=== PATIENT | female | born 1960 | race Asian ===

== ENCOUNTER 2021-07-27 14:10 | Outpatient (REF) | payer OTHER, SELFPAY ==
--- NOTE | ~2021-07-27 | MM_ITS ---
EXAMINATION: MM SCREENING DIGITAL BREAST TOMOSYNTHESIS, BILATERAL CLINICAL INFORMATION: Screening. Asymptomatic. The lifetime risk of breast cancer based on the Tyrer-Cuzick Model is 7%. COMPARISON: Mammography: 04/15/2019, 04/22/2017, outside mammography 02/07/2016 ([facility]). TECHNIQUE: Digital breast tomosynthesis is performed in both the craniocaudal and mediolateral oblique views along with computer-aided detection (CAD). Synthesized 2D images are generated from the tomosynthesis. FINDINGS: The breasts are heterogeneously dense, which may obscure small masses (ACR BI-RADS breast composition Category c). Parenchymal pattern is similar to prior exams. There is no developing density or interval mass or architectural abnormality. Again, there are numerous scattered bilateral round and mild coarse calcifications in each breast of similar distribution. There is a biopsy clip marker mid lower inner right breast. The axilla and skin contours are unremarkable. No significant changes. MM/MM tomosynthesis screening BI IMPRESSION: No significant changes from prior studies. ASSESSMENT: BI-RADS 2: Benign RECOMMENDATION: Routine annual mammography screening. This patient's information was entered into a reminder system with a target due date for their next mammogram.
== END 2021-07-27 14:11 | disposition home or self-care (01) ==
LOC: HO.MAMMO 14:10
PROVIDERS: Visit Provider Family Medicine
DX: Z12.31 Encounter for screening mammogram for malignant neoplasm of breast (principal)
CPT/HCPCS: 77063; 77067

== ENCOUNTER 2023-09-06 14:03 | Outpatient (REF) | payer OTHER, SELFPAY ==
--- NOTE | ~2023-09-06 | MM_ITS ---
EXAMINATION: MM SCREENING DIGITAL BREAST TOMOSYNTHESIS, BILATERAL CLINICAL INFORMATION: Screening. Asymptomatic. COMPARISON: Mammography: This study is compared with prior exams dating back to 2016. TECHNIQUE: Digital breast tomosynthesis is performed in both the craniocaudal and mediolateral oblique views along with computer-aided detection (CAD). Synthesized 2D images are generated from the tomosynthesis. FINDINGS: The breasts are heterogeneously dense, which may obscure small masses (ACR BI-RADS breast composition Category c). There are no significant masses, abnormal calcifications, or other abnormalities. Bilateral, benign calcifications are present in each breast. There is tissue marker in the lower inner quadrant of the right breast from prior benign percutaneous biopsy. MM/MM tomosynthesis screening BI IMPRESSION: No mammographic evidence of malignancy. ASSESSMENT: BI-RADS BI-RADS 2 - Benign Findings RECOMMENDATION: Routine annual mammography screening. 1 year F/U This examination should not preclude the clinical evaluation of a suspicious palpable abnormality. This patient's information was entered into a reminder system with a target due date for their next mammogram.
== END 2023-09-06 14:04 | disposition home or self-care (01) ==
LOC: HO.MAMMO 14:03
PROVIDERS: PCP Family Medicine; Visit Provider Family Medicine
DX: Z12.31 Encounter for screening mammogram for malignant neoplasm of breast (principal)
CPT/HCPCS: 77063; 77067

== ENCOUNTER → 2023-09-06 14:30 | Outpatient (BNV) | payer OTHER, SELFPAY | PROVIDERS: PCP Family Medicine; Visit Provider Radiology Diagnostic Radiology | DX: Z12.31 Encounter for screening mammogram for malignant neoplasm of breast (principal) | CPT/HCPCS: 77063; 77067 ==

== ENCOUNTER 2024-09-11 13:56 | Outpatient (REF) | payer OTHER, SELFPAY ==
--- NOTE | ~2024-09-11 | MM_ITS ---
EXAMINATION: MM SCREENING DIGITAL BREAST TOMOSYNTHESIS, BILATERAL CLINICAL INFORMATION: Screening. Asymptomatic. COMPARISON: Mammography: Comparison is made with available priors TECHNIQUE: Digital breast mammography with tomosynthesis is performed in both the craniocaudal and mediolateral oblique views along with computer-aided detection (CAD). FINDINGS: There are scattered areas of fibroglandular density (ACR BI-RADS breast composition Category b). Left: There are no significant masses, abnormal calcifications, or other abnormalities. Right: Focal asymmetry central inner breast middle to posterior depth. Marker clip from previous needle core biopsy. No suspicious calcifications or other abnormal findings. MM/MM tomosynthesis screening BI IMPRESSION: Additional imaging is recommended ASSESSMENT: BI-RADS BI-RADS 0 - Incomplete: Needs additional Imaging. RECOMMENDATION: 1. Additional views of the right breast 2. Targeted ultrasound if warranted after review of the additional views. 3. Radiology department staff will contact the patient for additional imaging. Additional Imaging required This examination should not preclude the clinical evaluation of a suspicious palpable abnormality. This patient's information was entered into a reminder system with a target due date for their next mammogram. Electronically signed by: Paula Wright DO 09/21/2024 08:51 AM EST
== END 2024-09-11 13:57 | disposition home or self-care (01) ==
LOC: HO.MAMMO 13:56
PROVIDERS: PCP Family Medicine; Visit Provider Family Medicine
DX: Z12.31 Encounter for screening mammogram for malignant neoplasm of breast (principal)
CPT/HCPCS: 77063; 77067

== ENCOUNTER → 2024-09-11 14:30 | Outpatient (BNV) | payer OTHER, SELFPAY | PROVIDERS: PCP Family Medicine; Visit Provider Internal Medicine | DX: Z12.31 Encounter for screening mammogram for malignant neoplasm of breast (principal) | CPT/HCPCS: 77063; 77067 ==

== ENCOUNTER 2024-11-12 10:36 | Outpatient (REF) | payer OTHER, SELFPAY ==
--- NOTE | ~2024-11-12 | US_ITS ---
EXAMINATION: MM DIAGNOSTIC DIGITAL BREAST TOMOSYNTHESIS, RIGHT Limited right breast ultrasound. CLINICAL INFORMATION: Call back from screening for focal asymmetry in the central inner right breast. COMPARISON: Mammography: Comparison is made with available prior examinations. TECHNIQUE: Digital breast tomosynthesis is performed in both the craniocaudal and mediolateral oblique views along with computer-aided detection (CAD). Synthesized 2D images are generated from the tomosynthesis. Limited right breast ultrasound. FINDINGS: The breasts are heterogeneously dense, which may obscure small masses (ACR BI-RADS breast composition Category c). Marker clip from previous needle core biopsy. Focal asymmetry in the central inner breast has increased from prior's and persist on additional imaging projections. No suspicious other abnormal findings. Targeted color Doppler ultrasound demonstrates a hypoechoic irregular solid mass at 3:00 4 cm from the nipple measuring 21 x 19 x 15 mm which correlates with the focal asymmetry on mammography. There is internal vascular flow. US/US breast RT limited mamm only IMPRESSION: Solid irregular mass at 3:00 on ultrasound. Recommend histology with ultrasound-guided core needle biopsy at this time. The findings and recommendations were discussed with the patient the procedure will be scheduled. ASSESSMENT: BI-RADS BI-RADS 4 - Suspicious finding RECOMMENDATION: Biopsy recommended Results were provided to the patient at time of visit by the technologist. This patient's information was entered into a reminder system with a target due date for their next mammogram. Electronically signed by: Paula Wright DO 11/12/2024 11:41 AM [facility]
== END 2024-11-12 10:37 | disposition home or self-care (01) ==
LOC: HO.MAMMO 10:36
PROVIDERS: Visit Provider Family Medicine
DX: N63.41 Unspecified lump in right breast, subareolar (principal); N63.15 Unspecified lump in the right breast, overlapping quadrants
CPT/HCPCS: 76642; 77061; 77065

== ENCOUNTER → 2024-11-12 10:45 | Outpatient (BNV) | payer OTHER, SELFPAY | PROVIDERS: Visit Provider Internal Medicine | DX: N63.15 Unspecified lump in the right breast, overlapping quadrants (principal); R92.331 Mammographic heterogeneous density, right breast | CPT/HCPCS: 76642; 77061; 77065 ==

== ENCOUNTER 2024-12-09 09:46 | Outpatient (REF) | payer OTHER, SELFPAY ==
--- NOTE | ~2024-12-09 | MM_ITS ---
PROCEDURE: ULTRASOUND-GUIDED RIGHT BREAST BIOPSY CLINICAL INFORMATION: Right breast mass at 3:00 4 cm from nipple. COMPARISON: Comparison is made with multiple prior examinations. TECHNIQUE: The details of the procedure, as well as the risks, benefits, and alternatives to the procedure were explained to the patient in detail and all of her questions were answered, after which, written informed consent was obtained. PROCEDURE: Prior to the procedure, sonography revealed a solid irregular mass at 3:00 4 cm from the nipple. A time-out was performed, the lesion intended for biopsy was targeted and the skin of the right breast was then prepped and draped in the usual sterile fashion. Using sonographic guidance, sterile technique, and 1% lidocaine without epinephrine for local anesthesia, a total of 4 cores were obtained through the targeted area with a 14-gauge biopsy device. At the completion of tissue sampling, a single butterfly metallic clip was deposited at the biopsy site. An appropriate sample was obtained. The postprocedure 2-view direct digital mammogram reveals satisfactory positioning of the biopsy clip. The patient tolerated the procedure well and, after assuring adequate hemostasis, was discharged in good condition after reviewing postbiopsy breast care instructions. Final pathology results are pending. MM/MM tomosynthesis diagnostic RT IMPRESSION: 1. Uncomplicated sonographically-guided core biopsy of the right breast. The 2-view direct digital postprocedure mammogram reveals satisfactory positioning of the biopsy clip. 2. Final pathology results are pending. A separate report with final recommendations will be issued once these results are made available. Electronically signed by: Paula Wright DO 12/09/2024 11:55 AM [facility]
[2024-12-09] MEDS: Lidocaine HCl 1 % 20 ML VIAL 9 ML SUBCUT (11:12)
[2024-12-09] MEDS: Sodium Bicarbonate 8.4% 50 MEQ/50 ML VIAL SUBCUT (11:13)
== END 2024-12-09 09:47 | disposition home or self-care (01) ==
LOC: HO.MAMMO 09:46
PROVIDERS: PCP Nurse Practitioner Family; Visit Provider Nurse Practitioner Family
DX: N63.15 Unspecified lump in the right breast, overlapping quadrants (principal)
CPT/HCPCS: 19083; 77061; 77065; 88305; 88341; 88342; 88360; A4648; C1894; J2003

== ENCOUNTER 2024-12-31 15:28 | Outpatient (AMB) | payer OTHER, SELFPAY ==
--- OUTSIDE RECORDS SUMMARY | 2024-12-31 15:30 | XMS_ITS | Encounter Summary ---
Author Name [facility] [place] Address [address] [place] [address] Care Team Providers Care Rater Associate Name Role Phone YAHAIRA ESCALANTE Primary Care Provider Unavailabl e Insurance Providers: All historical and current Section Date Range: From patient's date of to the date document was created. This section includes the names of all active insurance providers for the patient. Insurance Provider Type of Coverage Plan Name Start of Policy Coverage End of Policy Coverage Group Number Member ID Insurance Provider's Telephone Number Policy Bueno's Name Patient's Relationship to Policy Bueno [facility] Feb 28, 2004 Jul 01, 2026 [facility] [id number] ЕЛЕНА JORDAN PATIENT W/OME DICAR E Feb 28, 2004 Jul 01, 2026 [facility] [id number] ЕЛЕНА JORDNA PATIENT [facility] Feb 28, 2004 Jul 01, 2026 [id number] [phone] KIKO JORDAN JR SPOUSE [facility] Feb 28, 2004 Jul 01, 2026 [id number] ЕЛЕНА JORDAN PATIENT [facility] Feb 28, 2004 Jul 01, 2026 [id number] ЕЛЕНА JORDAN PATIENT [facility] Feb 28, 2004 Jul 01, 2026 [facility] [id number] 88 ЕЛЕНА JORDAN PATIENT [facility] Jun 18, 2015 Jul 01, 2026 [facility] [id number] [phone] [id number] SUMMER JORDANTA PATIENT OPTUM RX [facility] Jan 19, 2013 Jul 01, 2026 [facility] [id number] [phone] [id number] SUMMER JORDANTA PATIENT [facility] RX [facility] Sep 22, 2012 Jul 01, 2026 [facility] [id number] KIKO JORDAN JR SPOUSE [facility] Sep 22, 2012 Jul 01, 2026 [facility] [id number] [phone] [id number] ЕЛЕНА JORDAN PATIENT [facility] RX [facility] Sep 22, 2012 Jul 01, 2026 [facility] [id number] ЕЛЕНА JORDAN PATIENT OPTUM RX [facility] Feb 28, 2004 Jul 01, 2026 [facility] [id number] 88 ЕЛЕНА JORDAN PATIENT OPTUM/SANDRA MARAN [facility] Jun 18, 2015 [facility] [id number] [phone] [id number] ЕЛЕНА JORDAN PATIENT Selected Encounter This section includes the information on record at [place] for the Encounter. Date/Time Encounter Type Encounter Description Reason Provider Source Dec 31, 2024 12:27 PM PH1 ASSMT&MGMT NQHP 5-10 TELEPHONE CASE MANAGEMENT ICD-10-CM Z71.9 Counseling, unspecified MAXINE SWAIN E Encounter Template Text not used by [place] Assessments - Encounter Diagnoses This section includes the primary and secondary diagnoses documented for the Encounter. Date/Time Primary/Secondary Diagnosis Diagnosis Name Provider Source Dec 31, 2024 12:27 PM PRIMARY Counseling, unspecified MAXINE SWAIN [facility] Plan of Treatment: Future Appointments (+ 6 months) and Future Tests (+/- 45 days) The Plan of Treatment section includes future care activities for the patient from all VA treatmentfacilities. This section includes future appointments and future orders which are active, pending or scheduled. Future Appointments This section includes appointments that were scheduled to occur 6 months from the date of the Encounter, up to a maximum of 20 appointments. The data comes from all [facility]. Appointment Date/Time Appointment Type Appointme nt Facility Name Jun 29, 2025 02:30 PM AMBULATORY - MEDICINE [facility] Active, Pending, and Scheduled Orders This section includes a listing of several types of active, pending, and scheduled orders, including clinic medications orders, diagnostic test orders, procedure orders and consult orders; where the start date of the order is 45 days before the date of the Encounter or 45 days after the date of theEncounter. The data comes from all [facility]. Test Date/Time Test Type Test Details Facility Name Feb 12, 2025 12:00 AM Laboratory - Chemistry Order LIPID PANEL FASTING BLOOD (SST-SERUM) [facility] Feb 12, 2025 12:00 AM Laboratory - Chemistry Order HEMOGLOBIN A1C PANEL BLOOD (LAV-BLOOD) [facility] Feb 12, 2025 12:00 AM Laboratory - Chemistry Order BASIC METABOLIC PANEL (non-fasting) BLOOD (SST-SERUM) [facility] Feb 12, 2025 12:00 AM Laboratory - Chemistry Order MICROALBUMIN CREATININE RATIO PANEL URINE (RANDOM) [facility] Social History: Smoking Status (Most current) and Tobacco Use (All prior to encounter date) This section includes the most current, and the historical, smoking and tobacco- related health factors from the [place] facility where the Encounter took place. Current Smoking Status This section includes the most current smoking, or tobacco-related health factor, from the [place] facility where the Encounter took place. Date/Time Current Smoking Status Comment Facil ity Dec 09, 2023 01:00 PM [place]-TOBACCO NEVER USED [facility] Tobacco Use History This section includes a history of the smoking, or tobacco-related health factors, that were collected on or before the date of the Encounter. The data comes from the [place] facility where the Encounter took place. Date/Time Smoking Status/Tobacco Use Comment F acility Jan 04, 2023 03:00 PM VA-TOBACCO NEVER USED [place] [facility] [place] [facility] Feb 20, 2021 11:30 AM VA-TOBACCO NEVER USED [facility] [place] [facility] Feb 18, 2020 09:39 AM VA-TOBACCO NEVER USED [facility] [place] [facility] Dec 02, 2018 03:30 PM VA-TOBACCO FORMER USER [facility] [place] [facility] Dec 02, 2018 03:30 PM VA-TOBACCO QUIT 15 YRS OR MORE [facility] [place] [facility] Feb 28, 2018 02:37 PM QUIT TOBACCO USE > 7 YEARS AGO [facility] [place] [facility] Nov 23, 2016 10:49 AM LIFETIME NON-TOBACCO USER [facility] [place] [facility] April 10, 2005 09:23 AM LIFETIME NON-SMOKER [facility] [place] [facility] April 10, 2005 09:23 AM LIFETIME NON-TOBACCO USER [facility] Advance Directives: All historical and current Section Date Range: From patient's date of to the date document was created. This section includes ALL of a patient's completed or amended [place] Advance and Rescinded Directives. The entries below indicate that a directive exists for the patient, but an actual copy is not included with this document. The data comes from all [place] facilities. Date Advance Directives Provider Source Sep 08, 2009 ADVANCE DIRECTIVE CHOLO CONRAD [facility] Encounter Notes: All associated encounter notes This section contains the clinical notes associated to the Encounter. Date/Time Encounter Note(s) Provider Source Dec 31, 2024 12:27 PM SOCIAL WORK NOTE: LOCAL TITLE: SOCIAL WORK NOTE STANDARD TITLE: SOCIAL WORK NOTE DATE OF NOTE: DEC 31, 2024@12:27 ENTRY DATE: DEC 31, 2024@12:28:03 AUTHOR: DONI SWAIN COSIGNER: URGENCY: STATUS: COMPLETED Clinical Product Specialist reached out to check in. Vass passed the phone to her who remembered call from this physician underwriter I remember speaking to you. I want you to know we looked into everything you told us and also what other people from the [place] told us and she now has insurance. Thank you for helping her. If we need anything more we will call you . Verbalized appreciation. Encouraged to contact physician underwriter and VA prn. /rajeev/ MATEUSZ LONG LICENSED INDEPENDENT CLINICAL STEWARDING SUPERVISOR Signed: 12/31/2024 12:34 DONI SWAIN [facility]
--- OUTSIDE RECORDS SUMMARY | 2024-12-31 15:30 | XMS_ITS | Encounter Summary ---
Author Name [facility] [place] Address [address] [place] [address] Care Team Providers Care Gm Name Role Phone YAHAIRA ESCALANTE Primary Care [...] Bueno's Name Patient's Relationship to Policy Bueno [facility] Feb 28, 2004 Jul 01, 2026 [facility] [id number] ЕЛЕНА JORDAN PATIENT W/OME DICAR E Feb 28, 2004 Jul 01, 2026 [facility] [id number] ЕЛЕНА JORDAN PATIENT [facility] Feb 28, 2004 Jul 01, 2026 [id number] KIKO JORDAN JR SPOUSE [facility] Feb 28, 2004 Jul 01, 2026 [id number] [phone] ЕЕЛНА JORDAN PATIENT [facility] Feb 28, 2004 Jul 01, 2026 [id number] [phone] ЕЛЕНА JORDAN PATIENT [facility] Feb 28, 2004 Jul 01, 2026 [facility] [id number] ЕЛЕНА JORDAN PATIENT [facility] Jun 18, 2015 Jul 01, 2026 [facility] [id number] [phone] [id number] SUMMER JORDANTA PATIENT OPTUM RX [facility] Jan 19, 2013 Jul 01, 2026 [facility] [id number] 88 SUMMER JORDANTA PATIENT OPTUM RX [facility] Sep 22, 2012 Jul 01, 2026 [facility] [id number] [phone] [id number] SUMMER JORDANTA PATIENT [facility] RX [facility] Sep 22, 2012 Jul 01, 2026 [facility] [id number] KIKO JORDAN JR SPOUSE [facility] RX [facility] Sep 22, 2012 Jul 01, 2026 [facility] [id number] 88 ЕЛЕНА JORDAN PATIENT [facility] RX [facility] Feb 28, 2004 Jul 01, 2026 [facility] [id number] 88 ЕЛЕНА JORDAN PATIENT OPTUM/SANDRA MARAN [facility] Jun 18, 2015 [facility] [id number] [phone] [id number] ЕЛЕНА JORDAN PATIENT Selected Encounter This section includes the information on record at [place] for the Encounter. Date/Time Encounter Type Encounter Description Reason Provider Source Dec 14, 2024 03:27 PM PH1 ASSMT&MGMT NQHP 21-30 TELEPHONE CASE MANAGEMENT ICD-10-CM Z71.9 Counseling, unspecified MAXINE SWAIN E Encounter Template Text not used by [place] Assessments - Encounter Diagnoses This section includes the primary and secondary diagnoses documented for the Encounter. Date/Time Primary/Secondary Diagnosis Diagnosis Name Provider Source Dec 14, 2024 03:27 PM PRIMARY Counseling, unspecified MAXINE SWAIN [place] [facility] Social History: Smoking Status (Most current) and Tobacco Use (All prior to encounter date) This section includes the most current, and the historical, smoking and tobacco- related health factors from the [place] facility where the Encounter took place. Current Smoking Status This section includes the most current smoking, or tobacco-related health factor, from the [place] facility where the Encounter took place. Date/Time Current Smoking Status Comment [place] [facility] Dec 09, 2023 01:00 PM VA-TOBACCO NEVER USED [facility] Tobacco Use History This section includes a history of the smoking, or tobacco-related health factors, that were collected on or before the date of the Encounter. The data comes from the [place] facility where the Encounter took place. Date/Time Smoking Status/Tobacco Use Comment Chung acility Jan 04, 2023 03:00 PM [facility] Feb 20, 2021 11:30 AM VA-TOBACCO NEVER USED [place] [facility] [place] [facility] Feb 18, 2020 09:39 AM VA-TOBACCO NEVER USED [place] [facility] Dec 02, 2018 03:30 PM VA-TOBACCO FORMER USER [facility] Dec 02, 2018 03:30 PM VA-TOBACCO QUIT 15 YRS OR MORE [place] [facility] [place] [facility] Feb 28, 2018 02:37 PM QUIT TOBACCO USE > 7 YEARS AGO [facility] Nov 23, 2016 10:49 AM LIFETIME NON-TOBACCO USER [place] [facility] [place] [facility] April 10, 2005 09:23 AM LIFETIME NON-SMOKER [facility] April 10, 2005 09:23 AM [facility] Advance Directives: All historical and current Section Date Range: From patient's date of to the date document was created. This section includes ALL of a patient's completed or amended [place] Advance and Rescinded Directives. The entries below indicate that a directive exists for the patient, but an actual copy is not included with this document. The data comes from all [place] facilities. Date Advance Directives Provider Source Sep 08, 2009 ADVANCE DIRECTIVE CHOLO CONRAD [facility] Encounter Notes: All associated encounter notes This section contains the clinical notes associated to the Encounter. Date/Time Encounter Note(s) Provider Source Dec 14, 2024 03:27 PM SOCIAL WORK NOTE: LOCAL TITLE: SOCIAL WORK NOTE STANDARD TITLE: SOCIAL WORK NOTE DATE OF NOTE: DEC 14, 2024@15:27 ENTRY DATE: DEC 14, 2024@15:28:13 AUTHOR: DONI SWAIN COSIGNER: URGENCY: STATUS: COMPLETED CPRS reviewed. The business writer reached out to the [place],who asked spouse to join the call. We discussed various concerns and options. Landscaper encouraged to contact and apply (by phone) for [facility] closes at 5pm, as well as Medicare, which is open 10/06. If applicable, they should also consider discussing an appeal of the decision made by current medical insurance. Both verbalized appreciation and were encouraged to contact business writer and [place] prn. consult closed- /rajeev/ MATEUSZ LNOG LICENSED INDEPENDENT CLINICAL PUBLIC SAFETY TEACHER Signed: 12/14/2024 15:47 DONI SWAIN [place] [facility]
--- OUTSIDE RECORDS SUMMARY | 2024-12-31 15:30 | XMS_ITS | Encounter Summary ---
Author Name [facility] [place] Address [address] [place] [address] Care Team Providers Care Airframe And Powerplant Technician Name Role Phone YAHAIRA ESCALANTE Primary Care [...] Bueno's Name Patient's Relationship to Policy Bueno [facility] Feb 28, 2004 Jul 01, 2026 [facility] [id number] CHANDANCASTRO ЕЛЕНА PATIENT [facility] W/OME DICAR E Feb 28, 2004 Jul 01, 2026 [facility] [id number] 88 CHANDANЕЛЕНА ERAZO PATIENT [facility] Feb 28, 2004 Jul 01, 2026 [id number] [phone] KIKO JORDAN JR SPOUSE [facility] Feb 28, 2004 Jul 01, 2026 [id number] CHANDANЕЛЕНА ERAZO PATIENT [facility] Feb 28, 2004 Jul 01, 2026 [id number] ЕЛЕНА JORDAN PATIENT [facility] Feb 28, 2004 Jul 01, 2026 [facility] [id number] [phone] 7 ЕЛЕНА JORDAN PATIENT [facility] RX [facility] Jun 18, 2015 Jul 01, 2026 [facility] [id number] SUMMER JORDANTA PATIENT [facility] RX [facility] Jan 19, 2013 Jul 01, 2026 [facility] [id number] 88 SUMMER JORDANTA PATIENT OPTUM RX [facility] Sep 22, 2012 Jul 01, 2026 [facility] [id number] [phone] SUMMER JORDANTA PATIENT [facility] RX [facility] Sep 22, 2012 Jul 01, 2026 [facility] [id number] [phone] KIKO JORDAN JR SPOUSE [facility] Sep 22, 2012 Jul 01, 2026 [facility] [id number] 88 ЕЛЕНА JORDAN PATIENT [facility] RX [facility] Feb 28, 2004 Jul 01, 2026 [facility] [id number] ЕЛЕНА JORDAN PATIENT OPTUM/SANDRA MARAN [facility] Jun 18, 2015 [facility] [id number] 88 ЕЛЕНА JORDAN PATIENT Selected Encounter This section includes the information on record at [place] for the Encounter. Date/Time Encounter Type Encounter Description Reason Pro vider Source I[facility] Encounter Template Text not used by [place] Advance Directives: All historical and current Section Date Range: From patient's date of to the date document was created. This section includes ALL of a patient's completed or amended [place] Advance and Rescinded Directives. The entries below indicate that a directive exists for the patient, but an actual copy is not included with this document. The data comes from all [place] facilities. Date Advance Directives Provider Source Sep 08, 2009 ADVANCE DIRECTIVE CHOLO CONRAD [facility]
--- OUTSIDE RECORDS SUMMARY | 2024-12-31 15:31 | XMS_ITS | Encounter Summary ---
Author Name [facility] Organization [facility] Address [address] [place] [address] Care Team Providers Care Environmental Engineer Scientist Name Role Phone YAHAIRA ESCALANTE Primary Care [...] Bueno's Name Patient's Relationship to Policy Bueno [facility] Feb 28, 2004 Jul 01, 2026 [facility] [id number] [phone] ЕЛЕНА JORDAN PATIENT W/OME DICAR E Feb 28, 2004 Jul 01, 2026 [facility] [id number] [phone] ЕЛЕНА JORDAN PATIENT [facility] Feb 28, 2004 Jul 01, 2026 [id number] [phone] KIKO JORDAN JR SPOUSE [facility] Feb 28, 2004 Jul 01, 2026 [id number] [phone] ЕЛЕНА JORDAN PATIENT [facility] Feb 28, 2004 Jul 01, [id number] [phone] ЕЛЕНА JORDAN PATIENT [facility] Feb 28, 2004 Jul 01, 2026 [facility] [id number] [phone] ЕЛЕНА JORDAN PATIENT [facility] Jun 18, 2015 Jul 01, 2026 [facility] [id number] [phone] ЕЛЕНА JORDAN PATIENT [facility] Jan 19, 2013 Jul 01, 2026 [facility] [id number] [phone] ЕЛЕНА JORDAN PATIENT [facility] Sep 22, 2012 Jul 01, 2026 [facility] [id number] [phone] ЕЛЕНА JORDAN PATIENT [facility] Sep 22, 2012 Jul 01, 2026 [facility] [id number] [phone] KIKO JORDAN JR SPOUSE [facility] Sep 22, 2012 Jul 01, 2026 [facility] [id number] [phone] ЕЛЕНА JORDAN PATIENT [facility] Feb 28, 2004 Jul 01, 2026 [facility] [id number] [phone] ЕЛЕНА JORDAN PATIENT [facility]/SANDRA MARAN [facility] Jun 18, 2015 [facility] [id number] [phone] ЕЛЕНА JORDAN PATIENT Selected Encounter This section includes the information on record at [place] for the Encounter. Date/Time Encounter Type Encounter Description Reason Pro vider Source Dec 25, 2024 04:23 PM Outpatient Encounter ADMIN PAT ACTIVTIES (MASNONCT) IHE Encounter Template Text not used by [place] Social History: Smoking Status (Most current) and Tobacco Use (All prior to encounter date) This section includes the most current, and the historical, smoking and tobacco- related health factors from the [place] facility where the Encounter took place. Current Smoking Status This section includes the most current smoking, or tobacco-related health factor, from the [place] facility where the Encounter took place. Date/Time Current Smoking Status Comment Bell romero Dec 09, 2023 01:00 PM VA-TOBACCO NEVER USED [place] [facility] [place] [facility] Tobacco Use History This section includes a history of the smoking, or tobacco-related health factors, that were collected on or before the date of the Encounter. The data comes from the [place] facility where the Encounter took place. Date/Time Smoking Status/Tobacco Use Comment Chung doss Jan 04, 2023 03:00 PM VA-TOBACCO NEVER USED [place] [facility] [place] [facility] Feb 20, 2021 11:30 AM VA-TOBACCO NEVER USED [place] [facility] [place] [facility] Feb 18, 2020 09:39 AM VA-TOBACCO NEVER USED [facility] [place] [facility] Dec 02, 2018 03:30 PM VA-TOBACCO FORMER USER [place] [facility] [place] [facility] Dec 02, 2018 03:30 PM VA-TOBACCO QUIT 15 YRS OR MORE [facility] Feb 28, 2018 02:37 PM QUIT TOBACCO USE > 7 YEARS AGO [place] [facility] [place] [facility] Nov 23, 2016 10:49 AM LIFETIME NON-TOBACCO USER [place] [facility] [place] [facility] April 10, 2005 09:23 AM LIFETIME NON-SMOKER [place] [facility] [place] [facility] April 10, 2005 09:23 AM LIFET[facility]BACCO [facility] Advance Directives: All historical and current Section Date Range: From patient's date of to the date document was created. This section includes ALL of a patient's completed or amended [place] Advance and Rescinded Directives. The entries below indicate that a directive exists for the patient, but an actual copy is not included with this document. The data comes from all [place] facilities. Date Advance Directives Provider Source Sep 08, 2009 ADVANCE DIRECTIVE [facility]OLO [facility]RAD [facility] Encounter Notes: All associated encounter notes This section contains the clinical notes associated to the Encounter. Date/Time Encounter Note(s) Provider Source Dec 28, 2024 08:40 AM ADDENDUM: LOCAL TITLE: Addendum STANDARD TITLE: ADDENDUM DATE OF NOTE: DEC 28, 2024@08:40:33 ENTRY DATE: DEC 28, 2024@08:40:34 AUTHOR: KATHIE HARRIS COSIGNER: URGENCY: STATUS: COMPLETED added PCP /rajeev/ Kathie Harris, biomass facilitator Staff Nurse Signed: 12/28/2024 08:41 Receipt Acknowledged By: 12/28/2024 12:13 /rajeev/ RUBI MCMILLAN Nurse Practitioner --- Original Document --- 12/25/24 CCC: SCHEDULING ADMINISTRATION: Patient Demographics Patient Name: ЕЛЕНА JORDAN Patient Primary Phone: [phone] Patient Primary Address: [address] [place] [id number] Patient : 1960 Patient Age: 64 Caller/Recipient Relation to Patient: Self Caller Name: ЕЛЕНА JORDAN Administrative Administrative Note Reason: Other Administrative Note Comments: Pt called. She possibly has breast cancer and would like her PCP to give her a call back. She had mammogram in the [facility]. Biopsy report was sent to PCP. She will be needing to see an oncologist. She would like to know the stage of her cancer and where she should go. Please call her back SAYDA. Thank you. IMPORTANT: This note was created by [facility] staff. Please do not alert the staff member by adding them as a signer for future communications. Alerts are not monitored by this user. /rajeev/ TYSHAWN MIN 1 [facility] Signed: 12/25/2024 16:23 Receipt Acknowledged By: 12/28/2024 09:53 /rajeev/ DENNY MCCLAIN REGISTERED NURSE 12/28/2024 08:41 /rajeev/ Kathie Harris RN Primary Care Staff Nurse KATHIE HARRIS [facility] Dec 25, 2024 04:23 PM ADMINISTRATIVE NOT E: LOCAL TITLE: CCC: SCHEDULING ADMINISTRATION STANDARD TITLE: ADMINISTRATIVE NOTE DATE OF NOTE: DEC 25, 2024@16:23:06 ENTRY DATE: DEC 25, 2024@16:23:06 AUTHOR: TYSHAWN MURRELL COSIGNER: URGENCY: STATUS: COMPLETED CCC: SCHEDULING ADMINISTRATION Has ADDENDA Patient Demographics Patient Name: ЕЛЕНА JORDAN Patient Primary Phone: [phone] Patient Primary [address]: [address] [place] [address] [place] [address] Patient : 1960 Patient Age: 64 Caller/Recipient Relation to Patient: Self Caller Name: ЕЛЕНА JORDAN Administrative Administrative Note Reason: Other Administrative Note Comments: Pt called. She possibly has breast cancer and would like her PCP to give her a call back. She had mammogram in the [facility]. Biopsy report was sent to PCP. She will be needing to see an oncologist. She would like to know the stage of her cancer and where she should go. Please call her back SAYDA. Thank you. IMPORTANT: This note was created by [facility] staff. Please do not alert the staff member by adding them as a signer for future communications. Alerts are not monitored by this user. /rajeev/ TYSHAWN MIN 1 [facility] Signed: 12/25/2024 16:23 Receipt Acknowledged By: 12/28/2024 09:53 /rajeev/ DENNY MCCLAIN REGISTERED NURSE 12/28/2024 08:41 /rajeev/ Kathie Harris RN Primary Care Staff Nurse 12/28/2024 ADDENDUM STATUS: COMPLETED added PCP /rajeev/ Kathie Harris RN Primary Care Staff Nurse Signed: 12/28/2024 08:41 Receipt Acknowledged By: * AWAITING SIGNATURE * YAHAIRA ESCALANTE KAREN A [place] [facility]
--- OUTSIDE RECORDS SUMMARY | 2024-12-31 15:31 | XMS_ITS | Encounter Summary ---
Author Name [facility] [place] Address [address] [place] [address] Care Team Providers Care Premium Service Representative Name Role Phone YAHAIRA ESCALANTE Primary Care [...] Bueno's Name Patient's Relationship to Policy Bueno [facility] Feb 28, 2004 Jul 01, 2026 [facility] [id number] [phone] ЕЛЕНА JORDAN PATIENT W/OME DICAR E Feb 28, 2004 Jul 01, 2026 W/OMEDI CARE [id number] [phone] ЕЛЕНА JORDAN PATIENT [facility] Feb 28, 2004 Jul 01, 2026 [id number] MARYLOU JORDAN JR SPOUSE [facility] Feb 28, 2004 Jul 01, 2026 [id number] [phone] ЕЛЕНА JORDAN PATIENT [facility] Feb 28, 2004 Jul 01, 2026 [id number] [phone] ЕЛЕНА JORDAN PATIENT [facility] Feb 28, 2004 Jul 01, 2026 [facility] [id number] [phone] ЕЛЕНА JORDAN PATIENT [facility] Jun 18, 2015 Jul 01, 2026 [facility] [id number] [phone] ЕЛЕНА JORDAN PATIENT [facility] Jan 19, 2013 Jul 01, 2026 [facility] [id number] [phone] ЕЛЕНА JORDAN PATIENT [facility] Sep 22, 2012 Jul 01, 2026 [facility] [id number] ЕЛЕНА JORDAN PATIENT [facility] Sep 22, 2012 Jul 01, 2026 [facility] [id number] [phone] ЕЛЕНА JORDAN PATIENT [facility] Sep 22, 2012 Jul 01, 2026 [facility] [id number] [phone] MARYLOU JORDAN JR SPOUSE [facility] Feb 28, 2004 Jul 01, 2026 [facility] [id number] [phone] ЕЛЕНА JORDAN PATIENT [facility]SANDRA MARAN [facility] Jun 18, 2015 [facility] [id number] [phone] ЕЛЕНА JORDAN PATIENT Selected Encounter This section includes the information on record at [place] for the Encounter. Date/Time Encounter Type Encounter Description Reason Provider Source Jan 31, 2024 01:30 PM MTMS BY PHARM ADDFady 15 MIN CLINICAL PHARMACY ICD-10-CM E11.9 Type 2 diabetes mellitus without complications LIUDMILA MARTINEZ [facility] Encounter Template Text not used by [place] Assessments - Encounter Diagnoses This section includes the primary and secondary diagnoses documented for the Encounter. Date/Time Primary/Secondary Diagnosis Diagnosis Name Provider Source Jan 31, 2024 03:01 PM PRIMARY Type 2 diabetes mellitus without complications LIUDMILA MARTINEZ [place] [facility] [place] [facility] Plan of Treatment: Future Appointments (+ 6 months) and Future Tests (+/- 45 days) The Plan of Treatment section includes future care activities for the patient from all [place] treatmentfacilities. This section includes future appointments and future orders which are active, pending or scheduled. Future Appointments This section includes appointments that were scheduled to occur 6 months from the date of the Encounter, up to a maximum of 20 appointments. The data comes from all [place] treatment facilities. Appointment Date/Time Appointment Type Appointme nt Facility Name Feb 03, 2024 09:30 AM AMBULATORY - MEDICINE [facility] [place] [facility] Feb 04, 2024 02:00 PM AMBULATORY - MEDICINE [facility] [place] [facility] Feb 14, 2024 02:30 PM AMBULATORY - MEDICINE [facility] [place] [facility] Mar 03, 2024 02:30 PM AMBULATORY - PSYCHIATRY [facility] Mar 05, 2024 02:30 PM AMBULATORY - MEDICINE [facility] [place] [facility] March 18, 2024 02:30 PM AMBULATORY - MEDICINE [facility] [place] [facility] April 07, 2024 03:00 PM AMBULATORY - MEDICINE [facility] [place] [facility] April 14, 2024 02:00 PM AMBULATORY - NONE [facility] [place] [facility] April 15, 2024 01:00 PM AMBULATORY - MEDICINE [facility] [place] [facility] April 16, 2024 02:00 PM AMBULATORY - NONE [facility] [place] [facility] Apr 21, 2024 01:30 PM AMBULATORY - MEDICINE [facility] [place] [facility] Apr 28, 2024 10:00 AM AMBULATORY - PSYCHIATRY [facility] May 05, 2024 03:00 PM AMBULATORY - MEDICINE [facility] [place] [facility] Jun 02, 2024 02:30 PM AMBULATORY - PSYCHIATRY [facility] Jun 04, 2024 03:30 PM AMBULATORY - MEDICINE [facility] [place] [facility] Jul 08, 2024 03:00 PM AMBULATORY - PSYCHIATRY [facility] Jul 09, 2024 01:30 PM AMBULATORY - SURGERY [facility] Social History: Smoking Status (Most current) and Tobacco Use (All prior to encounter date) This section includes the most current, and the historical, smoking and tobacco- related health factors from the [place] facility where the Encounter took place. Current Smoking Status This section includes the most current smoking, or tobacco-related health factor, from the [place] facility where the Encounter took place. Date/Time Current Smoking Status Comment [facility] Dec 09, 2023 01:00 PM VA-TOBACCO NEVER USED [facility] Tobacco Use History This section includes a history of the smoking, or tobacco-related health factors, that were collected on or before the date of the Encounter. The data comes from the [place] facility where the Encounter took place. Date/Time Smoking Status/Tobacco Use Comment [facility] Jan 04, 2023 03:00 PM [facility] [place] [facility] Feb 20, 2021 11:30 AM VA-TOBACCO NEVER USED [facility] Feb 18, 2020 09:39 AM [facility] Dec 02, 2018 03:30 PM [facility] Dec 02, 2018 03:30 PM VA-TOBACCO QUIT 15 YRS OR MORE [facility] Feb 28, 2018 02:37 PM QUIT TOBACCO USE > 7 YEARS AGO [place] [facility] Nov 23, 2016 10:49 AM LIFETIME NON-TOBACCO USER [place] [facility] [place] [facility] April 10, 2005 09:23 AM [facility] April 10, 2005 09:23 AM [facility] Advance Directives: All historical and current Section Date Range: From patient's date of to the date document was created. This section includes ALL of a patient's completed or amended [place] Advance and Rescinded Directives. The entries below indicate that a directive exists for the patient, but an actual copy is not included with this document. The data comes from all [place] facilities. Date Advance Directives Provider Source Sep 08, 2009 ADVANCE DIRECTIVE CHOLO CONRAD [facility] Encounter Notes: All associated encounter notes This section contains the clinical notes associated to the Encounter. Date/Time Encounter Note(s) Provider Source Jan 31, 2024 03:36 PM DIABETOLOGY NOTE: LOCAL TITLE: INSULIN PUMP/CGM DOWNLOAD (T) STANDARD TITLE: DIABETOLOGY NOTE DATE OF NOTE: JAN 31, 2024@15:36 ENTRY DATE: JAN 31, 2024@15:36:44 AUTHOR: LIUDMILA MARTINEZ EXP COSIGNER: URGENCY: STATUS: COMPLETED Please select: Professional Continuous Glucose Monitor Date of Documentation:Jan Please see attached scanned document in [employer]. /diego MARTINEZ PHARMD, BCPS CLINICAL PHARMACY PRACTITIONER Signed: 01/31/2024 15:36 LIUDMILA MARTINEZ [facility] Jan 31, 2024 03:02 PM ADDENDUM: LOCAL TITLE: Addendum STANDARD TITLE: ADDENDUM DATE OF NOTE: JAN 31, 2024@15:02:09 ENTRY DATE: JAN 31, 2024@15:02:10 AUTHOR: LIUDMILA MARTINEZ EXP COSIGNER: URGENCY: STATUS: COMPLETED Will ask AMSA to please schedule patient for: [x ] CWM/NO/PHARM/PACT 3 TEL RTC order placed. Appointment Length: _30__ minutes. 02/03/24 @1130 Thank you! /diego MARTINEZ PHARMD,[facility] CLINICAL PHARMACY PRACTITIONER Signed: 01/31/2024 15:02 Receipt Acknowledged By: 02/03/2024 09:07 /rajeev/ LORNA ARTEAGA Advanced Employee Relations Specialist --- Original Document --- 01/31/24 PHARMACY CLINIC NOTE: ЕЛЕНА JORDAN, 63 yo FEMALE, presents for [id number] follow visit for diabetes management. Pt was last seen in clinic on 12/30/23 in which no medication changes were made, erinn pro was placed. Today, pt presents with her , Marylou. Pt reports she has some dizziness after eating. She reports this to be a problem for a long time > 1 year so unlikely its related to empagliflozin. Pt also notes some palpitations that come and go- notes father had heart attack. She notes she has been under lots of stress d/t mother in [facility] and finding care for her as she has dementia She states she eats healthy overall, lots of fruits, veggies, fish. She states she eats small portions. She doesnt know family hx well. She does not know of any family that has MTC or MENs2, denies personal hx. Denies any personal hx of pancreatitis, gastropraresis, gallstone issues, and occasionally drinks wine once/month. Current diabetes medications: - empagliflozin Previous diabetes medications: - metformin diarrhea Medication Adherence: - takes daily Diet Patterns: patient eats on avg. 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 Highs are between [id number], [id number]. Average bg in line with a1c 9 % HYPOGLYCEMIC Events: 0 in last 2 weeks - Hypoglycemia recognition & treatment reviewed: Yes Allergies/ADR: OMEPRAZOLE, DILAUDID, MORPHINE, ASPIRIN RELATED MEDICATIONS Active and Recently Outpatient Medications (including Supplies): Active Outpatient Medications Status 1) AMLODIPINE BESYLATE 5MG TAB TAKE ONE TABLET BY MOUTH ACTIVE ONCE DAILY FOR BLOOD PRESSURE/HEART, DO NOT TAKE WITH GRAPEFRUIT JUICE 2) ATENOLOL 100MG TAB TAKE ONE TABLET BY MOUTH AT ACTIVE BEDTIME FOR BLOOD PRESSURE/HEART 3) ATORVASTATIN CALCIUM 40MG TAB TAKE ONE-HALF TABLET BY ACTIVE (S) MOUTH DAILY FOR CHOLESTEROL 4) DULOXETINE HCL 30MG EC CAP TAKE ONE CAPSULE BY MOUTH ACTIVE TWICE DAILY 5) EMPAGLIFLOZIN 10MG TAB TAKE ONE TABLET BY MOUTH ONCE ACTIVE DAILY FOR TYPE 2 DIABETES MELLITUS TO REPLACE METFORMIN 6) HYDROCHLOROTHIAZIDE 25MG TAB TAKE ONE TABLET BY MOUTH ACTIVE DAILY TO PREVENT FLUID/CONTROL BLOOD PRESSURE 7) HYDROXYZINE HCL 10MG TAB TAKE ONE TABLET BY MOUTH AT ACTIVE BEDTIME NEEDED FOR INSOMNIA 8) LOSARTAN 100MG TAB TAKE ONE TABLET BY MOUTH ONCE ACTIVE (S) DAILY FOR BLOOD PRESSURE/HEART 9) OMEPRAZOLE 20MG EC CAP TAKE ONE CAPSULE BY MOUTH ACTIVE EVERY MORNING 30 MINUTES BEFORE BREAKFAST FOR REFLUX Inactive Outpatient Medications Status 1) AMLODIPINE BESYLATE 5MG TAB TAKE ONE TABLET BY MOUTH DISCONTINUED ONCE DAILY FOR BLOOD PRESSURE/HEART, DO NOT TAKE WITH GRAPEFRUIT JUICE 2) DULOXETINE HCL 20MG EC CAP TAKE TWO CAPSULES BY MOUTH DISCONTINUED ONCE DAILY DEPRESSION (EDIT) 3) DULOXETINE HCL 30MG EC CAP TAKE ONE CAPSULE BY MOUTH DISCONTINUED ONCE DAILY (EDIT) 4) EMPAGLIFLOZIN 10MG TAB TAKE ONE TABLET BY MOUTH ONCE DISCONTINUED DAILY FOR TYPE 2 DIABETES MELLITUS TO REPLACE METFORMIN 5) METFORMIN HCL 500MG 24HR SA TAB TAKE TWO TABLETS BY DISCONTINUED MOUTH ONCE DAILY AND TAKE ONE TABLET AT BEDTIME FOR DIABETES Active Non-VA Medications Status 1) Non-VA ARTIFICIAL TEARS POLYVINYL ALCOHOL 1 DROP INTO ACTIVE EACH EYE FOUR TIMES A DAY 2) Non-VA ASCORBIC ACID 500MG TAB 500MG BY MOUTH DAILY ACTIVE 3) Non-VA CETIRIZINE HCL 10MG TAB 10MG BY MOUTH ONCE ACTIVE DAILY 4) Non-VA CHOLECALCIF 25MCG (D3-1,000UNIT) TAB 25MCG BY ACTIVE MOUTH ONCE DAILY 5) Non-VA DM 10/GUAIFENESN 100MG/5ML (AF & SF) LIQ 2 ACTIVE TEASPOONFULS BY MOUTH THREE TIMES DAILY NEEDED 6) Non-VA FLUTICASONE PROP 50MCG 120D NASAL INHL 2 ACTIVE SPRAYS INTO EACH NOSTRIL DAILY 7) Non-VA FLUTICASONE PROP 50MCG 120D NASAL INHL 2 ACTIVE SPRAYS INTO EACH NOSTRIL ONCE DAILY 8) Non-VA IBUPROFEN 600MG TAB 600MG BY MOUTH THREE TIMES ACTIVE DAILY NEEDED 9) Non-VA MELATONIN 3MG CAP/TAB 3MG BY MOUTH ACTIVE 10) Non-VA MULTIVITAMIN W/MINERAL TAB BY MOUTH ACTIVE 24 Total Medications Labs: CHEM 7 TREND LAB CUMULATIVE SELECTED Collection DT Spec GLUCOSE BUN CREATIN Sodium K+/Pot CL CO2 12/09/2023 14:17 SERUM 232 H 14 0.77 138 4.1 102 24 12/05/2022 12:47 SERUM 125 H 13 0.67 137 4.2 100 27 06/12/2022 09:06 SERUM 135 H 11 0.67 138 3.6 102 26 05/31/2021 08:34 SERUM 131 H 10 0.67 142 3.7 104 27 02/23/2021 13:16 SERUM 214 H 12 0.68 139 3.5 102 25 Collection DT Spec eGFR 09/01/2009 11:01 SERUM >60 07/08/2009 16:01 SERUM >60 08/22/2006 09:45 SERUM >60 LAB CUMULATIVE SELECTED 2 No selection items chosen for this component. CHEM 7 Results Collection DT Spec Sodium K+/Pot CL CO2 GLUCOSE BUN eGFR 12/09/2023 14:17 SERUM 138 4.1 102 24 232 H 14 12/05/2022 12:47 SERUM 137 4.2 100 27 125 H 13 06/12/2022 09:06 SERUM 138 3.6 102 26 135 H 11 05/31/2021 08:34 SERUM 142 3.7 104 27 131 H 10 02/23/2021 13:16 SERUM 139 3.5 102 25 214 H 12 11/21/2020 14:19 SERUM 141 3.9 101 30 227 H 12 08/16/2020 09:01 SERUM 139 3.8 102 25 175 H 11 03/16/2019 08:56 SERUM 140 3.8 102 27 147 H 11 03/31/2018 10:01 SERUM 141 3.9 102 30 138 H 12 02/20/2018 09:11 SERUM 141 3.9 104 29 149 H 13 08/22/2017 09:59 SERUM 141 4.2 105 28 131 H 12 03/19/2017 12:43 SERUM 137 3.8 99 L 29 199 H 13 09/25/2016 15:34 SERUM 143 3.7 105 29 122 H 9 08/28/2016 14:36 SERUM 142 3.8 105 29 152 H 11 05/09/2016 16:46 SERUM 142 3.8 105 28 114 H 12 12/22/2015 12:37 SERUM 141 3.9 103 30 159 H 16 08/09/2015 08:39 SERUM 140 3.8 104 25 145 H 13 02/01/2015 10:48 SERUM 143 4.2 105 27 131 H 10 01/20/2015 16:05 SERUM 142 3.8 108 25 114 H 11/19/2014 11:30 SERUM 3.9 14 08/23/2014 09:01 SERUM 19 08/23/2014 09:00 SERUM 4.5 127 H 02/22/2014 15:17 SERUM 143 3.9 101 H 13 11/10/2013 12:56 SERUM 141 3.7 107 24 117 H 17 07/07/2013 09:23 SERUM 4.0 120 H 14 11/26/2012 09:20 SERUM 4.8 121 H 03/25/2012 10:03 SERUM 141 4.1 128 H 10/16/2011 09:48 SERUM 115 H 04/13/2011 09:10 SERUM 141 4.1 105 26 110 H 15 10/27/2010 11:45 SERUM 129 H 08/08/2010 09:40 SERUM 142 3.8 105 27 112 H 12 09/01/2009 11:01 SERUM 140 4.0 104 25 169 H 15 >60 07/08/2009 16:01 SERUM 141 3.9 106 23 119 H 16 >60 04/11/2007 08:53 SERUM 100 H 08/22/2006 09:45 SERUM 142 3.9 108 21 100 H 15 >60 09/11/2005 17:56 SERUM 138 4.2 103 25 118 H 14 06/18/2005 08:53 SERUM 138 4.5 104 26 100 H 13 06/08/2004 08:19 SERUM 15 06/08/2004 08:18 SERUM 104 eGFR CKD-EPI 202012/09/23 14:17 87 SERUM LIVER PANEL TREND Collection DT Spec AST ALT T BILI ALK JOE T. PROT ALBUMIN 12/09/2023 14:17 SERUM 16 20 0.6 75 7.8 4.2 12/05/2022 12:47 SERUM 14 22 0.5 63 7.2 3.9 06/12/2022 09:06 SERUM 19 26 0.6 54 6.9 3.7 05/31/2021 08:34 SERUM 15 17 0.7 56 6.8 3.7 02/23/2021 13:16 SERUM 16 21 0.5 62 7.3 4.0 HEMOGLOBIN A1C TREND Collection DT Spec HGBA1c 12/09/2023 14:17 BLOOD 9.0 H 03/28/2023 12:34 BLOOD 7.0 H 12/05/2022 12:47 BLOOD 7.4 H 06/12/2022 09:06 BLOOD 6.8 H 11/27/2021 14:16 BLOOD 6.5 H LIPID PANEL TREND Collection DT Spec CHOL HDL CHO/HDL LDL-c TRIG 12/09/2023 14:17 SERUM 186 62 H 3.0 92 162 H 12/05/2022 12:47 SERUM 135 54 2.5 58 114 06/12/2022 09:06 SERUM 143 48 3.0 53 209 H 05/31/2021 08:34 SERUM 141 47 3.0 72 109 08/16/2020 09:01 SERUM 162 52 3.1 80 148 == Vitals: Ht: 61 in [154.9 cm] (12/09/2023 13:32) Wt: 167 lb [75.75 kg] (12/09/2023 13:32) BMI: BMI: 31.6 BP: 122/81 (12/09/2023 13:32) HR: 80 (12/09/2023 13:32) Assessment: DIABETES: Goal: A1c goal is <7% with a goal fasting BG average of 90-130mg/dL and a goal post-prandial BG averageof <180mg/dL per ADA guideline. More appropriate A1c goal may be 7-8% given age and comorbidities. No significant microvascular/macrovascular complications or comorbidities noted on chart warranting a change in A1c goal. 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 - Monitor for s/sx hypoglycemia and contact clinic if BG consistently <70mg/dL - Healthy dietary and lifestyle modifications encouraged - Reviewed diet in depth with pt and s/o. Identified pt could reduce amount of ice cream, rice and other startchy foods - Encouraged pt to do any exercise she feels capable of - Repeat A1c: tbd based on tx changes EDUCATION -A shared decision-making approach was used in the development of this plan, involving the , clinician, and any caregivers present. The [place] was provided the opportunity express questions or concerns, and the plan was adjusted as needed to address these concerns. -Reviewed with any new medications, changes to the medication list, education, and plan from today's visit. Patient (and/or caregiver) verbalized understanding of the plan, including possible known risks and benefits, and had no additional questions. RTC:02/03/24 @1130 Time Spent: 45 mins PBM PharmD Pharmacotherapy Rem V12: PHARMACIST INTERVENTIONS: TYPE 2 DIABETES MELLITUS Medication monitoring, no dosage change required, continue to monitor and assess /rajeev/ LIUDMILA MARTINEZ PHARMD,BCPS CLINICAL PHARMACY PRACTITIONER Signed: 01/31/2024 15:02 LIUDMILA MARTINEZ [facility] Jan 31, 2024 12:50 PM PHARMACY OUTPATIENT NOTE: LOCAL TITLE: PHARMACY CLINIC NOTE STANDARD TITLE: PHARMACY OUTPATIENT NOTE DATE OF NOTE: JAN 31, 2024@12:50 ENTRY DATE: JAN 31, 2024@10:20:13 AUTHOR: LIUDMILA MARTINEZ EXP COSIGNER: URGENCY: STATUS: COMPLETED PHARMACY CLINIC NOTE Has ADDENDA ЕЛЕНА JORDAN, 63 yo FEMALE, presents for bhxa-le-vesf follow visit for diabetes management. Pt was last seen in clinic on 12/30/23 in which no medication changes were made, erinn pro was placed. Today, pt presents with her , Marylou. Pt reports she has some dizziness after eating. She reports this to be a problem for a long time > 1 year so unlikely its related to empagliflozin. Pt also notes some palpitations that come and go- notes father had heart attack. She notes she has been under lots of stress d/t mother in [facility] and finding care for her as she has dementia She states she eats healthy overall, lots of fruits, veggies, fish. She states she eats small portions. She doesnt know family hx well. She does not know of any family that has MTC or MENs2, denies personal hx. Denies any personal hx of pancreatitis, gastropraresis, gallstone issues, and occasionally drinks wine once/month. Current diabetes medications: - empagliflozin Previous diabetes medications: - metformin diarrhea Medication Adherence: - takes daily Diet Patterns: patient eats on avg. 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 Highs are between 6074-3566, 0402-7765. Average bg in line with a1c 9 % HYPOGLYCEMIC Events: 0 in last 2 weeks - Hypoglycemia recognition & treatment reviewed: Yes Allergies/ADR: OMEPRAZOLE, DILAUDID, MORPHINE, ASPIRIN RELATED MEDICATIONS Active and Recently Outpatient Medications (including Supplies): Active Outpatient Medications Status 1) AMLODIPINE BESYLATE 5MG TAB TAKE ONE TABLET BY MOUTH ACTIVE ONCE DAILY FOR BLOOD PRESSURE/HEART, DO NOT TAKE WITH GRAPEFRUIT JUICE 2) ATENOLOL 100MG TAB TAKE ONE TABLET BY MOUTH AT ACTIVE BEDTIME FOR BLOOD PRESSURE/HEART 3) ATORVASTATIN CALCIUM 40MG TAB TAKE ONE-HALF TABLET BY ACTIVE (S) MOUTH DAILY FOR CHOLESTEROL 4) DULOXETINE HCL 30MG EC CAP TAKE ONE CAPSULE BY MOUTH ACTIVE TWICE DAILY 5) EMPAGLIFLOZIN 10MG TAB TAKE ONE TABLET BY MOUTH ONCE ACTIVE DAILY FOR TYPE 2 DIABETES MELLITUS TO REPLACE METFORMIN 6) HYDROCHLOROTHIAZIDE 25MG TAB TAKE ONE TABLET BY MOUTH ACTIVE DAILY TO PREVENT FLUID/CONTROL BLOOD PRESSURE 7) HYDROXYZINE HCL 10MG TAB TAKE ONE TABLET BY MOUTH AT ACTIVE BEDTIME NEEDED FOR INSOMNIA 8) LOSARTAN 100MG TAB TAKE ONE TABLET BY MOUTH ONCE ACTIVE (S) DAILY FOR BLOOD PRESSURE/HEART 9) OMEPRAZOLE 20MG EC CAP TAKE ONE CAPSULE BY MOUTH ACTIVE EVERY MORNING 30 MINUTES BEFORE BREAKFAST FOR REFLUX Inactive Outpatient Medications Status 1) AMLODIPINE BESYLATE 5MG TAB TAKE ONE TABLET BY MOUTH DISCONTINUED ONCE DAILY FOR BLOOD PRESSURE/HEART, DO NOT TAKE WITH GRAPEFRUIT JUICE 2) DULOXETINE HCL 20MG EC CAP TAKE TWO CAPSULES BY MOUTH DISCONTINUED ONCE DAILY DEPRESSION (EDIT) 3) DULOXETINE HCL 30MG EC CAP TAKE ONE CAPSULE BY MOUTH DISCONTINUED ONCE DAILY (EDIT) 4) EMPAGLIFLOZIN 10MG TAB TAKE ONE TABLET BY MOUTH ONCE DISCONTINUED DAILY FOR TYPE 2 DIABETES MELLITUS TO REPLACE METFORMIN 5) METFORMIN HCL 500MG 24HR SA TAB TAKE TWO TABLETS BY DISCONTINUED MOUTH ONCE DAILY AND TAKE ONE TABLET AT BEDTIME FOR DIABETES Active Non-VA Medications Status 1) Non-VA ARTIFICIAL TEARS POLYVINYL ALCOHOL 1 DROP INTO ACTIVE EACH EYE FOUR TIMES A DAY 2) Non-VA ASCORBIC ACID 500MG TAB 500MG BY MOUTH DAILY ACTIVE 3) Non-VA CETIRIZINE HCL 10MG TAB 10MG BY MOUTH ONCE ACTIVE DAILY 4) Non-VA CHOLECALCIF 25MCG (D3-1,000UNIT) TAB 25MCG BY ACTIVE MOUTH ONCE DAILY 5) Non-VA DM 10/GUAIFENESN 100MG/5ML (AF & SF) LIQ 2 ACTIVE TEASPOONFULS BY MOUTH THREE TIMES DAILY NEEDED 6) Non-VA FLUTICASONE PROP 50MCG 120D NASAL INHL 2 ACTIVE SPRAYS INTO EACH NOSTRIL DAILY 7) Non-VA FLUTICASONE PROP 50MCG 120D NASAL INHL 2 ACTIVE SPRAYS INTO EACH NOSTRIL ONCE DAILY 8) Non-VA IBUPROFEN 600MG TAB 600MG BY MOUTH THREE TIMES ACTIVE DAILY NEEDED 9) Non-VA MELATONIN 3MG CAP/TAB 3MG BY MOUTH ACTIVE 10) Non-VA MULTIVITAMIN W/MINERAL TAB BY MOUTH ACTIVE 24 Total Medications Labs: CHEM 7 TREND LAB CUMULATIVE SELECTED Collection DT Spec GLUCOSE BUN CREATIN Sodium K+/Pot CL CO2 12/09/2023 14:17 SERUM 232 H 14 0.77 138 4.1 102 24 12/05/2022 12:47 SERUM 125 H 13 0.67 137 4.2 100 27 06/12/2022 09:06 SERUM 135 H 11 0.67 138 3.6 102 26 05/31/2021 08:34 SERUM 131 H 10 0.67 142 3.7 104 27 02/23/2021 13:16 SERUM 214 H 12 0.68 139 3.5 102 25 Collection DT Spec eGFR 09/01/2009 11:01 SERUM >60 07/08/2009 16:01 SERUM >60 08/22/2006 09:45 SERUM >60 LAB CUMULATIVE SELECTED 2 No selection items chosen for this component. CHEM 7 Results Collection DT Spec Sodium K+/Pot CL CO2 GLUCOSE BUN eGFR 12/09/2023 14:17 SERUM 138 4.1 102 24 232 H 14 12/05/2022 12:47 SERUM 137 4.2 100 27 125 H 13 06/12/2022 09:06 SERUM 138 3.6 102 26 135 H 11 05/31/2021 08:34 SERUM 142 3.7 104 27 131 H 10 02/23/2021 13:16 SERUM 139 3.5 102 25 214 H 12 11/21/2020 14:19 SERUM 141 3.9 101 30 227 H 12 08/16/2020 09:01 SERUM 139 3.8 102 25 175 H 11 03/16/2019 08:56 SERUM 140 3.8 102 27 147 H 11 03/31/2018 10:01 SERUM 141 3.9 102 30 138 H 12 02/20/2018 09:11 SERUM 141 3.9 104 29 149 H 13 08/22/2017 09:59 SERUM 141 4.2 105 28 131 H 12 03/19/2017 12:43 SERUM 137 3.8 99 L 29 199 H 13 09/25/2016 15:34 SERUM 143 3.7 105 29 122 H 9 08/28/2016 14:36 SERUM 142 3.8 105 29 152 H 11 05/09/2016 16:46 SERUM 142 3.8 105 28 114 H 12 12/22/2015 12:37 SERUM 141 3.9 103 30 159 H 16 08/09/2015 08:39 SERUM 140 3.8 104 25 145 H 13 02/01/2015 10:48 SERUM 143 4.2 105 27 131 H 10 01/20/2015 16:05 SERUM 142 3.8 108 25 114 H 11/19/2014 11:30 SERUM 3.9 14 08/23/2014 09:01 SERUM 19 08/23/2014 09:00 SERUM 4.5 127 H 02/22/2014 15:17 SERUM 143 3.9 101 H 13 11/10/2013 12:56 SERUM 141 3.7 107 24 117 H 17 07/07/2013 09:23 SERUM 4.0 120 H 14 11/26/2012 09:20 SERUM 4.8 121 H 03/25/2012 10:03 SERUM 141 4.1 128 H 10/16/2011 09:48 SERUM 115 H 04/13/2011 09:10 SERUM 141 4.1 105 26 110 H 15 10/27/2010 11:45 SERUM 129 H 08/08/2010 09:40 SERUM 142 3.8 105 27 112 H 12 09/01/2009 11:01 SERUM 140 4.0 104 25 169 H 15 >60 07/08/2009 16:01 SERUM 141 3.9 106 23 119 H 16 >60 04/11/2007 08:53 SERUM 100 H 08/22/2006 09:45 SERUM 142 3.9 108 21 100 H 15 >60 09/11/2005 17:56 SERUM 138 4.2 103 25 118 H 14 06/18/2005 08:53 SERUM 138 4.5 104 26 100 H 13 06/08/2004 08:19 SERUM 15 06/08/2004 08:18 SERUM 104 eGFR CKD-EPI 202012/09/23 14:17 87 SERUM LIVER PANEL TREND Collection DT Spec AST ALT T BILI ALK JOE T. PROT ALBUMIN 12/09/2023 14:17 SERUM 16 20 0.6 75 7.8 4.2 12/05/2022 12:47 SERUM 14 22 0.5 63 7.2 3.9 06/12/2022 09:06 SERUM 19 26 0.6 54 6.9 3.7 05/31/2021 08:34 SERUM 15 17 0.7 56 6.8 3.7 02/23/2021 13:16 SERUM 16 21 0.5 62 7.3 4.0 HEMOGLOBIN A1C TREND Collection DT Spec HGBA1c 12/09/2023 14:17 BLOOD 9.0 H 03/28/2023 12:34 BLOOD 7.0 H 12/05/2022 12:47 BLOOD 7.4 H 06/12/2022 09:06 BLOOD 6.8 H 11/27/2021 14:16 BLOOD 6.5 H LIPID PANEL TREND Collection DT Spec CHOL HDL CHO/HDL LDL-c TRIG 12/09/2023 14:17 SERUM 186 62 H 3.0 92 162 H 12/05/2022 12:47 SERUM 135 54 2.5 58 114 06/12/2022 09:06 SERUM 143 48 3.0 53 209 H 05/31/2021 08:34 SERUM 141 47 3.0 72 109 08/16/2020 09:01 SERUM 162 52 3.1 80 148 == Vitals: Ht: 61 in [154.9 cm] (12/09/2023 13:32) Wt: 167 lb [75.75 kg] (12/09/2023 13:32) BMI: BMI: 31.6 BP: 122/81 (12/09/2023 13:32) HR: 80 (12/09/2023 13:32) Assessment: DIABETES: Goal: A1c goal is <7% with a goal fasting BG average of 90-130mg/dL and a goal post-prandial BG averageof <180mg/dL per ADA guideline. More appropriate A1c goal may be 7-8% given age and comorbidities. No significant microvascular/macrovascular complications or comorbidities noted on chart warranting a change in A1c goal. 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 - Monitor for s/sx hypoglycemia and contact clinic if BG consistently <70mg/dL - Healthy dietary and lifestyle modifications encouraged - Reviewed diet in depth with pt and s/o. Identified pt could reduce amount of ice cream, rice and other startchy foods - Encouraged pt to do any exercise she feels capable of - Repeat A1c: tbd based on tx changes EDUCATION -A shared decision-making approach was used in the development of this plan, involving the Aguila, clinician, and any caregivers present. The Aguila was provided the opportunity express questions or concerns, and the plan was adjusted as needed to address these concerns. -Reviewed with any new medications, changes to the medication list, education, and plan from today's visit. Patient (and/or caregiver) verbalized understanding of the plan, including possible known risks and benefits, and had no additional questions. RTC:02/03/24 @1130 Time Spent: 45 mins PBM PharmD Pharmacotherapy Rem V12: PHARMACIST INTERVENTIONS: TYPE 2 DIABETES MELLITUS Medication monitoring, no dosage change required, continue to monitor and assess /diego MARTINEZ PHARMD,[facility] PRACTITIONER Signed: 01/31/2024 15:02 01/31/2024 ADDENDUM STATUS: COMPLETED Will ask [facility]MSA to please schedule patient for: [x ] CWM/NO/PHARM/PACT 3 TEL RTC order placed. Appointment Length: _30__ minutes. 02/03/24 @1130 Thank you! /diego MARTINEZ PHARMD,[facility] PRACTITIONER Signed: 01/31/2024 15:02 Receipt Acknowledged By: * AWAITING SIGNATURE * LORNA ARTEAGA JODI A [facility] [facility]
--- OUTSIDE RECORDS SUMMARY | 2024-12-31 15:31 | XMS_ITS | Encounter Summary ---
Author Name [facility] ([place]) Organization [facility] ([place]) Address [address] [place] [id number] Care Team Providers Care Insurance Inspector Name Role Phone AYHAIRA ESCALANTE Primary Care Provider Unavailselena e Insurance Providers: All historical and current [...] Bueno's Name Patient's Relationship to Policy Bueno [facility] Feb 28, 2004 Jul 01, 2026 [facility] [id number] ЕЛЕНА JORDAN PATIENT W/OME DICAR E Feb 28, 2004 Jul 01, 2026 [facility] [id number] CHANDANCASTRO ЕЛЕНА PATIENT [facility] Feb 28, 2004 Jul 01, 2026 [id number] KIKO JORDAN JR SPOUSE [facility] Feb 28, 2004 Jul 01, 2026 [id number] ЕЛЕНА JORDAN PATIENT [facility] Feb 28, 2004 Jul 01, 2026 [id number] [phone] ЕЛЕНА JORDAN PATIENT [facility] Feb 28, 2004 Jul 01, 2026 [facility] [id number] [phone] [id number] ЕЛЕНА JORDAN PATIENT [facility] Jun 18, 2015 Jul 01, 2026 [facility] [id number] SUMMER JORDANTA PATIENT [facility] Jan 19, 2013 Jul 01, 2026 [facility] [id number] SUMMER JORDANTA PATIENT [facility] Sep 22, 2012 Jul 01, 2026 [facility] [id number] SUMMER JORDANTA PATIENT [facility] Sep 22, 2012 Jul 01, 2026 [facility] [id number] KIKO JORDAN JR SPOUSE [facility] Sep 22, 2012 Jul 01, 2026 [facility] [id number] ЕЛЕНА JORDAN PATIENT [facility] Feb 28, 2004 Jul 01, 2026 [facility] [id number] [phone] [id number] ЕЛЕНА JORDAN PATIENT [facility]DRA [facility] Jun 18, 2015 [facility] [id number] [phone] ЕЛЕНА JORDAN PATIENT Selected Encounter This section includes the information on record at [place] for the Encounter. Date/Time Encounter Type Encounter Description Reason Provider Source Sep 04, 2024 11:30 AM OFFICE O/P EST MOD 30 MIN [facility] - IND ICD-10-CM F33.8 Other recurrent depressive disorders KENDALL ZHANG Ana Encounter Template Text not used by DC Assessments - Encounter Diagnoses This section includes the primary and secondary diagnoses documented for the Encounter. Date/Time Primary/Secondary Diagnosis Diagnosis Name Provider Source Sep 04, 2024 12:01 PM PRIMARY Other recurrent depressive disorders AZAEL ZHANG Plan of Treatment: Future Appointments (+ 6 months) and Future Tests (+/- 45 days) The Plan of Treatment section includes future care activities for the patient from all [place] treatmentfacilities. This section includes future appointments and future orders which are active, pending or scheduled. Future Appointments This section includes appointments that were scheduled to occur 6 months from the date of the Encounter, up to a maximum of 20 appointments. The data comes from all [facility] facilities. Appointment Date/Time Appointment Type Appointme nt Facility Name Sep 14, 2024 02:00 PM [facility] Sep 15, 2024 11:30 AM AMBULATORY - MEDICINE [facility] Active, Pending, and Scheduled Orders This section includes a listing of several types of active, pending, and scheduled orders, including clinic medications orders, diagnostic test orders, procedure orders and consult orders; where the start date of the order is 45 days before the date of the Encounter or 45 days after the date of theEncounter. The data comes from all [facility] facilities. Test Date/Time Test Type Test Details Facility Name Sep 14, 2024 02:23 PM Consult Order ENDOCRINE/ [facility] OUTPT Cons [employer] [facility] Lab Results: +/- 30 days of the encounter This section includes the Chemistry and Hematology Lab Results on record with DC for the patient. Radiology Reports and Pathology Reports are provided separately, in subsequent sections. Lab Results This section contains the Chemistry/Hematology Results that were resulted 30 days before or 30 daysafter the date of the Encounter. Date/Time Source Result Type Result - Unit Interpretation Reference Range Comment Sep 14, 2024 02:48 PM [facility] HEMOGLOBIN A1C PANEL Specimen Type: BLOOD Comment: Values obtained from A1C measurements can vary. For atypical A1C assays, a reported value of 7.0 could actually be between 6.72 and 7.28 if measured by a reference method. A reported value of 9.0 could actually be between 8.73 and 9.27. Ref: http://www.ngs p.org/CAPdata. asp Ordering Provider: YAHAIRA ESCALANTE Report Released Date/Time: Sep 14, 2024 02:24 PM Reporting Lab: [address] [address] Performing Lab: [address] [address] HEMOGLOBIN A1C 8.1 H 4.0-5.6 Sep 14, 2024 02:48 PM [facility] MICROALBUMIN CREATININE RATIO PANEL Specimen Type: URINE No comment entered. Ordering Provider: YAHAIRA ESCALANTE Report Released Date/Time: Sep 14, 2024 02:25 PM Reporting Lab: [facility] [address] [address] Performing Lab: [facility] [address] [address] MICROALBUMIN/C REATININE RATIO canc mg/g 0-29.9 MICROALBUMIN,Q UANTITATIVE < 0.5 mg/dL RR UNAVAIL CREATININE URINE 27.03 mg/dL Social History: Smoking Status (Most current) and Tobacco Use (All prior to encounter date) This section includes the most current, and the historical, smoking and tobacco- related health factors from the [place] facility where the Encounter took place. Current Smoking Status This section includes the most current smoking, or tobacco-related health factor, from the [place] facility where the Encounter took place. Date/Time Current Smoking Status Comment Facil ity Jan 24, 2022 02:00 PM VA-TOBACCO NEVER USED [facility] Tobacco Use History This section includes a history of the smoking, or tobacco-related health factors, that were collected on or before the date of the Encounter. The data comes from the [place] facility where the Encounter took place. Date/Time Smoking Status/Tobacco Use Comment F acility Nov 29, 2015 02:08 PM LIFETIME NON-TOBACCO USER [facility] Advance Directives: All historical and current Section [...] Sep 08, 2009 ADVANCE DIRECTIVE CHOLO CONRAD [facility] Encounter Notes: All associated encounter notes This section contains the clinical notes associated to the Encounter. Date/Time Encounter Note(s) Provider Source Sep 04, 2024 11:24 AM PSYCHIATRY NOTE: LOCAL TITLE: PSYCHIATRY NOTE STANDARD TITLE: PSYCHIATRY NOTE DATE OF NOTE: SEP 04, 2024@11:24 ENTRY DATE: SEP 04, 2024@11:24:50 AUTHOR: AZAEL ZHANG EXP COSIGNER: URGENCY: STATUS: COMPLETED 30 minutes for encounter -- including chart review, interview, charting chart reviewed Patient stable, reports doing well. Mood good. She denies depression. Anxiety improved. Affect brightens appropriately. She denies SI and violent ideation. Well organized. No h/o psychotic symptoms. No PI or delusions presented. Cognitive exam grossly intact. Good self-care. No slowing noted. Has interests. We again reviewed the medications, and the patient feels that the Cymbalta is helpful for depression and anxiety and irritability. Well-tolerated. The patient denied history of alcohol abuse (reports occasional glass of wine). Denies street drugs. Denies psych med side effects. Denies daytime sedation. Reports compliance Lives w her -- supportive; pt has friends Active problems - Computerized Problem List is the source for the followin. Gastroesophageal reflux disease 2. Allergic rhinitis 3. Fibromyalgia 4. Laboratory test result abnormal 5. Shingles 6. Intracranial meningioma 7. Sleep apnea 8. Adjustment disorder with anxious mood (SNOMED CT 93385839) 9. Hydradenitis * 10. Type 2 diabetes mellitus (SNOMED CT 45956704) 11. Insomnia * 12. Hysterectomy * 13. Dizziness * 14. Somatization Disorder 15. Obesity (SNOMED CT 796481504) 16. Headache * 17. Hypertension (SNOMED CT 47469226) 18. Hyperlipidemia (SNOMED CT 50534650) 19. CONRADO - Generalized anxiety disorder (SNOMED CT 83290530) 20. Depression (SNOMED CT 38793626) Active Outpatient Medications (including Supplies): Active Outpatient Medications Status ======= 1) ALCOHOL PREP PAD USE 1 PAD TOPICALLY TWICE A WEEK ACTIVE NEEDED TO CLEAN SKIN FOR INJECTION ETC 2) AMLODIPINE BESYLATE 5MG TAB TAKE ONE TABLET BY MOUTH ACTIVE (S) ONCE DAILY FOR BLOOD PRESSURE/HEART, DO NOT TAKE WITH GRAPEFRUIT JUICE 3) ATENOLOL 100MG TAB TAKE ONE TABLET BY MOUTH AT ACTIVE BEDTIME FOR BLOOD PRESSURE/HEART 4) ATORVASTATIN CALCIUM 40MG TAB TAKE ONE-HALF TABLET BY ACTIVE MOUTH DAILY FOR CHOLESTEROL 5) DULOXETINE HCL 30MG EC CAP TAKE ONE CAPSULE BY MOUTH ACTIVE TWICE DAILY 6) EMPAGLIFLOZIN 10MG TAB TAKE ONE TABLET BY MOUTH ONCE ACTIVE (S) DAILY FOR TYPE 2 DIABETES MELLITUS 7) HYDROCHLOROTHIAZIDE 25MG TAB TAKE ONE TABLET BY MOUTH ACTIVE (S) DAILY TO PREVENT FLUID/CONTROL BLOOD PRESSURE 8) HYDROXYZINE HCL 10MG TAB TAKE ONE TABLET BY MOUTH AT ACTIVE BEDTIME NEEDED FOR INSOMNIA 9) LOSARTAN 100MG TAB TAKE ONE TABLET BY MOUTH ONCE ACTIVE DAILY FOR BLOOD PRESSURE/HEART 10) OMEPRAZOLE 20MG EC CAP TAKE ONE CAPSULE BY MOUTH ACTIVE EVERY MORNING 30 MINUTES BEFORE BREAKFAST FOR REFLUX 11) SEMAGLUTIDE 1MG/0.75ML INJ PEN 3ML INJECT 1MG ACTIVE SUBCUTANEOUSLY ONCE A WEEK Active Non-VA Medications Status ======= 1) Non-VA ARTIFICIAL TEARS POLYVINYL ALCOHOL 1 [...] TIMES ACTIVE DAILY NEEDED 9) Non-VA MELATONIN CAP/TAB BY MOUTH ACTIVE 10) Non-VA MULTIVITAMIN W/MINERAL TAB BY MOUTH ACTIVE 21 Total Medications PAST PSYCH MED HX: Pt did not want to take valium due to concern re addiction. She did not like the effect of buspar -- HAs. Melatonin dc'd previously -- now pt feels helpful at times gabapentin -- pt did not like the effect for sleep, anxiety nortriptyline: may have caused SI trazodone -- not help ropinirole -- pt stopped IMP: dsm-5 CONRADO (vs adj do w anxiety) -- improved unspecified depressive do -- improved sleep apnea -- uses cpap fibromyalgia PLAN: Careful risk assessment performed. See C-SSRS 04/28/24 - same today The pt is probably low risk for suicide or violence -- the patient denied suicidal and violent ideation, but the [facility] Crisis Line information and number were reviewed w patient as a precaution. The patient also understands to call 911 or to go to ER in the event of an emergency. psychotherapy for anxiety/mood --patient request female therapist -- this pending CONTINUE CYMBALTA 30 MG BID, good response for depression and fibromyalgia and anxiety. Patient wants to keep this the same. CONTINUE HYDROXYZINE LOW-DOSE 10 MG NIGHTLY NEEDED INSOMNIA. Good response. Risk of next-day sedation reviewed with the patient. Patient sometimes uses MELATONIN [id number]-[id number] for sleep, in addition to hydroxyzine, well-tolerated consider remeron low dose to augment cymbalta (and to help with sleep)- but pt feel she is doing well with current meds, and does not Remeron at this time Return to clinic 4 mo for medication f/u or sooner thr open access prn The discussion with patient about treatments including medications involved shared decision making. The patient was educated about the rationale and plan for the psychiatric medications. Medication instructions were reviewed with the patient. Alternatives to treatment were discussed with the patient. The side effect profile of the psychiatric medications was reviewed with the patient. This also included discussion of potential drug interactions associated with psychiatric medication. The patient discussed/verbalized back the understanding of the medication, side effects, and the plan/instructions, and the patient asked good questions. The patient demonstrated reasonable understanding of the medication side effects and the above-mentioned issues. The benefits of psychiatric medications outweigh risks for this patient. The patient consents to medication treatment. I asked the patient to call me or to come to open access if the patient does not like the effect of psychiatric medication or if has side effects with psychiatric medication. Medication Reconciliation: Outpatient: Has the patient been taking medications as documented in the EMLR? YES: The patient has been taking medications as documented in the EMLR. Essential Medication List for Review used to complete this medication reconciliation. INCLUDED IN THIS LIST: Alphabetical list of active outpatient prescriptions dispensed from this [facility] (local) and dispensed from another [place] or [facility] facility (remote) as well as inpatient orders (local, pending and active), local clinic medications, locally documented non-VA medications, and local prescriptions that have or been discontinued in the past 90 days. - All changes in medications, including all non-VA/Herbal/OTC medications were entered into CPRS. - If there were any medications the patient should no longer take, they were discontinued. - The patient/caregiver was instructed to update this list, discard old lists, and take this list to the next appointment, whether with a VA or non-VA provider. /rajeev/ AZAEL ZHANG MD STAFF PSYCHIATRIST Signed: 09/04/2024 12:01 AZAEL ZHANGFIELD
--- OUTSIDE RECORDS SUMMARY | 2024-12-31 15:31 | XMS_ITS | Encounter Summary ---
Author Name [facility] Organization [facility] Address [address] [place] [address] Care Team Providers Care Construction Economist Name Role Phone YAHAIRA ESCALANTE Primary Care [...] Bueno's Name Patient's Relationship to Policy Bueno [facility] Feb 28, 2004 Jul 01, 2026 [facility] [id number] ЕЛЕНА JORDAN PATIENT W/OME DICAR E Feb 28, 2004 Jul 01, 2026 [facility] [id number] ЕЛЕНА JORDAN PATIENT [facility] Feb 28, 2004 Jul 01, 2026 [id number] [phone] KIKO JORDAN JR SPOUSE [facility] Feb 28, 2004 Jul 01, 2026 [id number] [phone] ЕЛЕНА JORDAN PATIENT [facility] Feb 28, 2004 Jul 01, 2026 [id number] [phone] ЕЛЕНА JORDAN PATIENT [facility] Feb 28, 2004 Jul 01, 2026 [facility] [id number] [phone] ЕЛЕНА JORDAN PATIENT [facility] Jun 18, 2015 Jul 01, 2026 [facility] [id number] [phone] ЕЛЕНА JORDAN PATIENT [facility] Jan 19, 2013 Jul 01, 2026 [facility] [id number] [phone] ЕЛЕНА JORDAN PATIENT [facility] Sep 22, 2012 Jul 01, 2026 [facility] [id number] ЕЛЕНА JORDAN PATIENT [facility] Sep 22, 2012 Jul 01, 2026 [facility] [id number] KIKO JORDAN JR SPOUSE [facility] Sep 22, 2012 Jul 01, 2026 [facility] [id number] [phone] ЕЛЕНА JORDAN PATIENT [facility] Feb 28, 2004 Jul 01, 2026 [facility] [id number] [phone] ЕЛЕНА JORDAN PATIENT OPTUM/SANDRA MARAN [facility] Jun 18, 2015 [facility] [id number] [phone] ЕЛЕНА JORDAN PATIENT Selected Encounter This section includes the information on record at [place] for the Encounter. Date/Time Encounter Type Encounter Description Reason Pro vider Source Apr 23, 2024 11:30 PM Outpatient Encounter ADMIN PAT ACTIVTIES (MASNONCT) [facility] Encounter Template Text not used by [place] Plan of Treatment: Future Appointments (+ 6 months) and Future Tests (+/- 45 days) The Plan of Treatment section includes future care activities for the [facility] This section includes future appointments and future orders which are active, pending or scheduled. Future Appointments This section includes appointments that were scheduled to occur 6 months from the date of the Encounter, up to a maximum of 20 appointments. The data comes from all [facility] facilities. Appointment Date/Time Appointment Type Appointme nt Facility Name Apr 28, 2024 10:00 AM AMBULATORY - PSYCHIATRY [facility] May 05, 2024 03:00 PM [facility] Jun 02, 2024 02:30 PM AMBULATORY - PSYCHIATRY [facility] Jun 04, 2024 03:30 PM AMBULATORY - MEDICINE [facility] [place] [facility] Jul 08, 2024 03:00 PM AMBULATORY - PSYCHIATRY [facility] Jul 09, 2024 01:30 PM AMBULATORY - SURGERY [facility] Sep 04, 2024 11:30 AM AMBULATORY - PSYCHIATRY [facility] Sep 14, 2024 02:00 PM [facility]UL[facility] - [facility]ICINE [facility] Sep 15, 2024 11:30 AM [facility] Active, Pending, and Scheduled Orders This section includes a listing of several types of active, pending, and scheduled orders, including clinic medications orders, diagnostic test orders, procedure orders and consult orders; where thestart date of the order is 45 days before the date of the Encounter or 45 days after the date of the Encounter. The data comes from all [facility] facilities. Test Date/Time Test Type Test Details Facility Name March 18, 2024 12:00 AM Laboratory - Chemistry Order HEMOGLOBIN A1C PANEL BLOOD (LAV-BLOOD) [facility] Jun 02, 2024 09:21 PM Consult Order PSYCHOTHERAPY SOP[facility] OUTPT Cons Shot Dropper[facility] Choice [place] Lab Results: +/- 30 days of the encounter This section includes the Chemistry and Hematology Lab Results on record with [place] for the patient. Radiology Reports and Pathology Reports are provided separately, in subsequent sections. Lab Results This section contains the Chemistry/Hematology Results that were resulted 30 days before or 30 daysafter the date of the Encounter. Date/Time Source Result Type Result - Unit Interpretation Reference Range Comment Apr 21, 2024 02:06 PM [facility] BASIC METABOLIC PANEL (non-fasting) Specimen Type: SERUM No comment entered. Ordering Provider: YAHAIRA ESCALANTE Report Released Date/Time: April 17, 2024 01:15 PM Reporting Lab: [address] [address] Performing Lab: [address] [address] [facility]A NITROGEN 15 mg/dL 7-25 GLUCOSE 140 mg/dL H 65-100 SODIUM 135 mmol/L 135-145 POTASSIUM 3.9 mmol/L 3.5-5.0 CHLORIDE 100 mmol/L 100-110 CO2 26 meq/L 20-30 CREATININE, Serum 0.69 mg/dL 0.50-1.40 eGFR(CKD-EPI 2020) >90 mL/min >60 Apr 21, 2024 02:06 PM [facility] HEMOGLOBIN A1C PANEL Specimen Type: BLOOD Comment: Values obtained from A1C measurements can vary. For atypical A1C assays, a reported value of 7.0 could actually be between 6.72 and 7.28 if measured by a reference method. A reported value of 9.0 could actually be between 8.73 and 9.27. Ref: http://www.ngs p.org/CAPdata. asp Ordering Provider: YAHAIRA ESCALANTE Report Released Date/Time: April 17, 2024 01:15 PM Reporting Lab: [address] [id number] Performing Lab: [address] [address] HEMOGLOBIN A1C 7.6 H 4.0-5.6 Apr 21, 2024 02:06 PM [facility] CBC Specimen Type: BLOOD No comment entered. Ordering Provider: YAHAIRA ESCALANTE Report Released Date/Time: April 17, 2024 01:15 PM Reporting Lab: [address] [address] Performing Lab: [address] [address] WBC 9.47 10*3/uL 4.50-11.00 RBC 4.60 10*6/uL 3.93-5.16 HGB 13.9 g/dL 12-15.2 HCT 42.2 36.6-45.6 MCV 91.7 fL 82-99 MCHC 32.9 g/dL 30.8-35.1 PLT 244 10*3/uL 140-360 RDW-CV 12.4 12.0-16.0 MCH 30.2 pg 26.2-32.6 Social History: Smoking Status (Most current) and Tobacco Use (All prior to encounter date) This section includes the most current, and the historical, smoking and tobacco- related health factors from the [place] facility where the Encounter took place. Current Smoking Status This section includes the most current smoking, or tobacco-related health factor, from the [place] facility where the Encounter took place. Date/Time Current Smoking Status Comment [facility] Dec 09, 2023 01:00 PM VA-TOBACCO NEVER USED [facility] Tobacco Use History This section includes a history of the smoking, or tobacco-related health factors, that were collected on or before the date of the Encounter. The data comes from the [place] facility where the Encounter took place. Date/Time Smoking Status/Tobacco Use Comment [facility] Jan 04, 2023 03:00 PM [facility] Feb 20, 2021 11:30 AM [facility] Feb 18, 2020 09:39 AM VA-TOBACCO NEVER USED [facility] Dec 02, 2018 03:30 PM VA-TOBACCO FORMER USER [facility] Dec 02, 2018 03:30 PM VA-TOBACCO QUIT 15 YRS OR MORE [facility] Feb 28, 2018 02:37 PM QUIT TOBACCO USE > 7 YEARS AGO [facility] WSN [facility] Nov 23, 2016 10:49 AM LIFETIME NON-TOBACCO [facility] April 10, 2005 09:23 AM LIFETIME NON-SMOKER [facility] April 10, 2005 09:23 AM LIFETIME NON-TOBACCO USER [facility] Advance Directives: All historical and current Section Date Range: From patient's date of to the date document was created. This section includes ALL of a patient's completed or amended [place] Advance and Rescinded Directives. The entries below indicate that a directive exists for the patient, but an actual copy is not included with this document. The data comes from all [place] facilities. Date Advance Directives Provider Source Sep 08, 2009 ADVANCE DIRECTIVE ANAMARIACHOLO [facility] Encounter Notes: All associated encounter notes This section contains the clinical notes associated to the Encounter. Date/Time Encounter Note(s) Provider Source Apr 23, 2024 11:30 PM PHARMACY NOTE: LOCAL TITLE: V1 PHARMACY CUSTOMER CARE MEDICATION RENEWAL STANDARD TITLE: PHARMACY NOTE DATE OF NOTE: APR 23, 2024@23:30 ENTRY DATE: APR 23, 2024@23:30:06 AUTHOR: BOB MARTINEZ EXP COSIGNER: URGENCY: STATUS: COMPLETED Date: Apr Division: [place] Pt referred by Pharmacy Call Center for medication renewal: Non-controlled/maintenance medication Medications requested: [id number] HYDROCHLOROTHIAZIDE 25MG TAB Defer to primary care provider To be mailed . Please review and renew if appropriate. *This note was generated by [facility]/[place] [facility] Customer [facility]. If you have any questions or need assistance, do not contact this author. Please refer all questions to your local, on-site pharmacy departments. /rajeev/ BOB MARTINEZ CPhT [employer] Writer, [place]/Pharmacy Customer Care Signed: 04/23/2024 23:30 Receipt Acknowledged By: 04/24/2024 15:32 /es/ RUBI MCMILLAN Nurse Practitioner 04/24/2024 07:48 /rajeev/ LEVI BETANCUR, MSN, RN, CNL PRIMARY CARE TEAM NURSE BOB MARTINEZ [facility]
--- OUTSIDE RECORDS SUMMARY | 2024-12-31 15:31 | XMS_ITS ---
Author Name [facility] Organization [facility] [place] Address [address] [place] [address] Care Team Providers Care Electroneurodiagnostic Technologist Name Role Phone YAHAIRA ESCALANTE Primary Care [...] Bueno's Name Patient's Relationship to Policy Bueno [facility] Feb 28, 2004 Jul 01, 2026 [facility] [id number] CHANDANCASTROЕЛЕНА PATIENT W/OME DICAR E Feb 28, 2004 Jul 01, 2026 [facility] [id number] ЕЛЕНА JORDAN PATIENT [facility] Feb 28, 2004 Jul 01, 2026 [id number] ЕЛЕНА JORDAN PATIENT [facility] Feb 28, 2004 Jul 01, 2026 [id number] [phone] KIKO JORDAN JR SPOUSE [facility] Feb 28, 2004 Jul 01, 2026 [id number] BUCKMORE, ЕЛЕНА PATIENT [facility] Feb 28, 2004 Jul 01, 2026 [id number] [phone] ЕЛЕНА JORDAN PATIENT [facility] Jun 18, 2015 Jul 01, 2026 [facility] [id number] ЕЛЕНА JORDAN PATIENT [facility] Jan 19, 2013 Jul 01, 2026 [facility] [id number] [phone] ЕЛЕНА JORDAN PATIENT [facility] Sep 22, 2012 Jul 01, 2026 [facility] [id number] 88 ЕЛЕНА JORDAN PATIENT [facility] Sep 22, 2012 Jul 01, 2026 [facility] [id number] KIKO JORDAN JR SPOUSE [facility] Sep 22, 2012 Jul 01, 2026 [facility] [id number] [phone] ЕЛЕНА JORDAN PATIENT [facility] Feb 28, 2004 Jul 01, 2026 [facility] [id number] [phone] ЕЛЕНА JORDAN PATIENT [facility]SANDRA MARAN [facility] Jun 18, 2015 [facility] [id number] [phone] ЕЛЕНА JORDAN PATIENT Selected Encounter This section includes the information on record at OR for the Encounter. Date/Time Encounter Type Encounter Description Reason Provider Source Feb 04, 2024 02:00 PM INTRM OPH EXAM EST PATIENT OPTOMETRY ICD-10-CM E11.9 Type 2 diabetes mellitus without complications PAUL ALCANTAR Ana Encounter Template Text not used by OR Assessments - Encounter Diagnoses This section includes the primary and secondary diagnoses documented for the Encounter. 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, bilateral PAUL ALCANTAR [facility] CNT [facility] Feb 04, 2024 03:04 PM SECONDARY Drusen (degenerative) of macula, bilateral PAUL ALCANTAR [facility] [place] [facility] Feb 04, 2024 03:04 PM SECONDARY Dry eye syndrome of bilateral lacrimal glands PAUL ALCANTAR [place] [facility] [place] [facility] Plan of Treatment: Future Appointments (+ 6 months) and Future Tests (+/- 45 days) The Plan of Treatment section includes future care activities for the patient [facility] This section includes future appointments and future orders which are active, pending or scheduled. Future Appointments This section includes appointments that were scheduled to occur 6 months from the date of the Encounter, up to a maximum of 20 appointments. The data comes from all OR treatment facilities. Appointment Date/Time Appointment Type Appointme nt Facility Name Feb 14, 2024 02:30 PM AMBULATORY - MEDICINE OR C [facility] [place] [facility] Mar 03, 2024 02:30 PM AMBULATORY - PSYCHIATRY [facility] Mar 05, 2024 02:30 PM AMBULATORY - MEDICINE OR C [facility] [place] [facility] March 18, 2024 02:30 PM AMBULATORY - MEDICINE OR C [facility] [place] [facility] April 07, 2024 03:00 PM AMBULATORY - MEDICINE OR C [facility] [place] [facility] April 14, 2024 02:00 PM AMBULATORY - NONE [facility] [place] [facility] April 15, 2024 01:00 PM AMBULATORY - MEDICINE OR C [facility] [place] [facility] April 16, 2024 02:00 PM AMBULATORY - NONE [facility] [place] [facility] Apr 21, 2024 01:30 PM AMBULATORY - MEDICINE OR C [facility] [place] [facility] Apr 28, 2024 10:00 AM AMBULATORY - PSYCHIATRY [facility] May 05, 2024 03:00 PM AMBULATORY - MEDICINE OR C [facility] [place] [facility] Jun 02, 2024 02:30 PM AMBULATORY - PSYCHIATRY [facility] Jun 04, 2024 03:30 PM AMBULATORY - MEDICINE OR C [facility] [place] [facility] Jul 08, 2024 03:00 PM AMBULATORY - PSYCHIATRY [facility] Jul 09, 2024 01:30 PM AMBULATORY - SURGERY [facility] Active, Pending, and Scheduled Orders This section includes a listing of several types of active, pending, and scheduled orders, including clinic medications orders, diagnostic test orders, procedure orders and consult orders; where the start date of the order is 45 days before the date of the Encounter or 45 days after the date of theEncounter. The data comes from all [place] treatment facilities. Test Date/Time Test Type Test Details Facility Name March 18, 2024 12:00 AM Laboratory - Chemistry Order HEMOGLOBIN A1C PANEL BLOOD (LAV-BLOOD) SP [facility] Social History: Smoking Status (Most current) and Tobacco Use (All prior to encounter date) This section includes the most current, and the historical, smoking and tobacco- related health factors from the OR facility where the Encounter took place. Current Smoking Status This section includes the most current smoking, or tobacco-related health factor, from the OR facility where the Encounter took place. Date/Time Current Smoking Status Comment Facil ity Dec 09, 2023 01:00 PM [facility]ACCO [facility] Tobacco Use History This section includes a history of the smoking, or tobacco-related health factors, that were collected on or before the date of the Encounter. The data comes from the OR facility where the Encounter took place. Date/Time Smoking Status/Tobacco Use Comment F acility Jan 04, 2023 03:00 PM VA-TOBACCO NEVER USED OR [facility] [place] [facility] Feb 20, 2021 11:30 AM VA-TOBACCO NEVER USED OR [facility] [place] [facility] Feb 18, 2020 09:39 AM VA-TOBACCO NEVER USED OR [facility] [place] [facility] Dec 02, 2018 03:30 PM VA-TOBACCO FORMER USER OR [facility] [place] [facility] Dec 02, 2018 03:30 PM VA-TOBACCO QUIT 15 YRS OR MORE OR [facility] [place] [facility] Feb 28, 2018 02:37 PM QUIT TOBACCO USE > 7 YEARS AGO OR [facility] [place] [facility] Nov 23, 2016 10:49 AM LIFETIME NON-TOBACCO USER OR [facility] [place] [facility] April 10, 2005 09:23 AM LIFETIME NON-SMOKER OR [facility] [place] [facility] April 10, 2005 09:23 AM LIFETIME NON-TOBACCO USER OR [facility] [place] [facility] Advance Directives: All historical and current Section Date Range: From patient's date of to the date document was created. This section includes ALL of a patient's completed or amended VA Advance and Rescinded Directives. The entries below indicate that a directive exists for the patient, but an actual copy is not included with this document. The data comes from all OR facilities. Date Advance Directives Provider Source Sep 08, 2009 ADVANCE DIRECTIVE ANAMARIAANATOLYNadja Thaddeus [facility] Encounter Notes: All associated encounter notes This section contains the clinical notes associated to the Encounter. Date/Time Encounter Note(s) Provider Source Feb 04, 2024 02:44 PM OPTOMETRY NOTE: LOCAL TITLE: OPTOMETRY NOTE STANDARD TITLE: OPTOMETRY NOTE DATE OF NOTE: FEB 04, 2024@14:44 ENTRY DATE: FEB 04, 2024@14:44:19 AUTHOR: PERFECTO ALCANTAR COSIGNER: URGENCY: STATUS: COMPLETED I saw this patient in conjunction with the student and agree with stated findings and plan as noted below after reviewing both the history and repeating james elements of the physical exam now. Patient well-known to me last seen here August 15, 2023 and referred to [facility] for bilateral cataract surgery returns today for follow-up. She canceled her consultation at [facility] due to travel burden. Because she is under [facility] she is not eligible for community care. In addition to bilateral visually significant cataract she also has a history of diabetes without retinopathy or macular edema either eye and bilateral drusen and dry eye disease. Anterior segment evaluation shows clear cornea without staining or pigment with reduced TBUT. Deep and quiet anterior chamber with normal iris without NVI 2-2+ nuclear sclerosis with mixed anterior cortical changes left greater than right eye. Dilated fundus examination shows healthy optic nerve head appearance with 0.20 cup-to-disc ratio each eye with good color, intact rim tissue and no NVD. There is no evidence of diabetic retinopathy or macular edema seen either eye. Stable macular drusen posterior pole each eye as previously noted without evidence of subretinal fluid, subretinal blood, exudate or thickening. Impression: Diabetes without retinopathy or macular edema either eye. Stressed the importance of optimize control of blood sugar, blood pressure and cholesterol with healthy lifestyle. Bilateral familial macular drusen posterior pole as previously noted without evidence of subretinal fluid, lipid exudate or thickening either eye. Bilateral visually significant cataracts left greater than right eye. Discuss alternative care through private [employer] insurance. Bilateral dry eye disease continue use of lubricating drops as recommended. Plan: Patient education as noted above reviewed exam findings now. She plans to pursue bilateral cataract surgery in the community on her own utilizing private insurance [employer]. Follow-up here as needed. Ophthalmic medication reconciliation: She is prescribed lubricating eyedrops which she uses on an as-needed basis for dry eye disease. Medication Reconciliation: Outpatient: Has the patient been taking medications as documented in the EMLR? YES: The patient has been taking medications as documented in the EMLR. Essential Medication List for Review used to complete this medication reconciliation. INCLUDED IN THIS LIST: Alphabetical list of active outpatient prescriptions dispensed from this OR (local) and dispensed from another OR or [facility] facility (remote) as well as inpatient [...] whether with a VA or non-VA provider. Medication List: JLV Link Data on this list may not be complete. Please check JLV. Allergies/ADRs (Tool #5) FACILITY ALLERGY/ADR -------- [facility] HYDROMORPHONE [facility] OMEPRAZOLE [facility] [place] [facility] ASPIRIN RELATED MEDICATIONS [facility] [place] [facility] DILAUDID [facility] [place] [facility] MORPHINE [facility] [place] [facility] OMEPRAZOLE [facility] NO KNOWN ALLERGIES Med. Reconciliation (Tool #1) INCLUDED IN THIS LIST: Alphabetical list of active outpatient prescriptions dispensed from this OR (local) and dispensed from another OR or [facility] facility (remote) as well as inpatient orders (local pending and active), local clinic medications, locally documented non-VA medications, and local prescriptions that have or been discontinued in the past 90 days. Non-VA Meds Last Documented On: Jul 03, 2022 NOTE The display of VA prescriptions dispensed from another OR or [facility] facility (remote) is limited to active outpatient prescription entries matched to National Drug File at the originating site and may not include some items such as investigational drugs, compounds, etc. NOT INCLUDED IN THIS LIST: Medications self-entered by the patient into personal health records (i.e. [employer]) are NOT included in this list. Non-VA medications documented outside this OR, remote inpatient orders (regardless of status) and remote clinic medications are NOT included in this list. The patient and provider must always discuss medications the patient is taking, regardless of where the medication was dispensed or obtained. OUTPT AMLODIPINE BESYLATE 5MG TAB (Status = Active/Suspended) TAKE ONE TABLET BY MOUTH ONCE DAILY FOR BLOOD PRESSURE/HEART, DO NOT TAKE WITH GRAPEFRUIT JUICE Rx# [id number] Last Released: 12/26/23 Qty/Days Supply: Rx Expiration Date: 08/12/24 Refills Remainin Indication: FOR HIGH BLOOD PRESSURE Non-VA ARTIFICIAL TEARS POLYVINYL ALCOHOL INSTILL 1 DROP INTO EACH EYE FOUR TIMES A DAY Patient wants to buy from Non-VA pharmacy. Non-VA ASCORBIC ACID 500MG TAB TAKE ONE TABLET BY MOUTH DAILY OUTPT ATENOLOL 100MG TAB (Status = Active) TAKE ONE TABLET BY MOUTH AT BEDTIME FOR BLOOD PRESSURE/HEART Rx# [id number] Last Released: 11/27/23 Qty/Days Supply: Rx Expiration Date: 03/05/24 Refills Remainin OUTPT ATORVASTATIN CALCIUM 40MG TAB (Status = Active) TAKE ONE-HALF TABLET BY MOUTH DAILY FOR CHOLESTEROL Rx# [id number] Last Released: 01/03/24 Qty/Days Supply: 45 Rx Expiration Date: 04/03/24 Refills Remainin Non-VA CETIRIZINE HCL 10MG TAB TAKE ONE TABLET BY MOUTH ONCE DAILY Non-VA medication recommended by VA provider. Non-VA CHOLECALCIF 25MCG (D3-1,000UNIT) TAB TAKE ONE TABLET BY MOUTH ONCE DAILY Non-VA DM 10/GUAIFENESN 100MG/5ML (AF & SF) LIQ TAKE 2 TEASPOONFULS BY MOUTH THREE TIMES DAILY NEEDED Non-VA medication recommended by VA provider. OUTPT DULOXETINE HCL 20MG EC CAP (Status = Discontinued) TAKE TWO CAPSULES BY MOUTH ONCE DAILY DEPRESSION Rx# [id number] Last Released: 12/24/23 Qty/Days Supply: 60 Rx Expiration Date: 06/21/24 Refills Remainin Indication: DEPRESSION OUTPT DULOXETINE HCL 30MG EC CAP (Status = Active/Suspended) TAKE ONE CAPSULE BY MOUTH TWICE DAILY Rx# [id number] Last Released: 12/24/23 Qty/Days Supply: 60 Rx Expiration Date: 12/24/24 Refills Remainin Indication: DEPRESSION OUTPT EMPAGLIFLOZIN 10MG TAB (Status = Active) TAKE ONE TABLET BY MOUTH ONCE DAILY FOR TYPE 2 DIABETES MELLITUS TO REPLACE METFORMIN Rx# [id number] Last Released: 12/18/23 Qty/Days Supply: 90 Rx Expiration Date: 08/23/24 Refills Remainin Indication: FOR TYPE 2 DIABETES MELLITUS Non-VA FLUTICASONE PROP 50MCG 120D NASAL INHL INSTILL 2 SPRAYS INTO EACH NOSTRIL DAILY Non-VA medication recommended by VA provider. Non-VA FLUTICASONE PROP 50MCG 120D NASAL INHL INSTILL 2 SPRAYS INTO EACH NOSTRIL ONCE DAILY OUTPT HYDROCHLOROTHIAZIDE 25MG TAB (Status = Active) TAKE ONE TABLET BY MOUTH DAILY TO PREVENT FLUID/CONTROL BLOOD PRESSURE Rx# [id number] Last Released: 11/27/23 Qty/Days Supply: 90/90 Rx Expiration Date: 03/18/24 Refills Remainin OUTPT HYDROXYZINE HCL 10MG TAB (Status = Active) TAKE ONE TABLET BY MOUTH AT BEDTIME NEEDED FOR INSOMNIA Rx# [id number] Last Released: 12/24/23 Qty/Days Supply: Rx Expiration Date: 12/24/24 Refills Remainin Indication: INSOMNIA Non-VA IBUPROFEN 600MG TAB TAKE ONE TABLET BY MOUTH THREE TIMES A DAY NEEDED OUTPT LOSARTAN 100MG TAB (Status = Active) TAKE ONE TABLET BY MOUTH ONCE DAILY FOR BLOOD PRESSURE/HEART Rx# [id number] Last Released: 01/03/24 Qty/Days Supply: Rx Expiration Date: 04/03/24 Refills Remainin Non-VA MELATONIN 3MG CAP/TAB TAKE ONE CAPSULE/TABLET BY MOUTH Patient wants to buy from Non-OR pharmacy. Non-VA MULTIVITAMIN W/MINERAL TAB TAKE BY MOUTH OUTPT OMEPRAZOLE 20MG EC CAP (Status = Active) TAKE ONE CAPSULE BY MOUTH EVERY MORNING 30 MINUTES BEFORE BREAKFAST FOR REFLUX Rx# [id number] Last Released: 08/27/23 Qty/Days Supply: Rx Expiration Date: 02/21/24 Refills Remainin SUPPLIES PHARMACY TERMS AND POSSIBLE PATIENT ACTIONS INPT = OR inpatient order IV = OR intravenous medication OUTPT = OR outpatient prescription PHARMACY POSSIBLE PATIENT TERMS EXPLANATION ACTIONS -------- --- ACTIVE A prescription that can be If you have refills, filled at the local VA pharmacy. you may request a refill of this prescription from your VA pharmacy. CLINIC A medication you received during If you have questions a visit to a VA clinic or about this medication emergency department. contact your VA healthcare team. DISCONTINUED A prescription your provider has Contact your VA stopped. It is no longer healthcare team if you available to be sent to you or need more of this picked up at the OR pharmacy medication. window. A prescription which is too old Contact your VA to fill. This does not refer to healthcare team if you the expiration date of the need more of this medication in the container. medication. NON-VA A medication that came from If this medication someplace other than a VA information is pharmacy. This may be a incorrect or out of prescription from either the VA date, please tell your or non VA providers that was VA healthcare team. filled outside the VA. Or, it may be an [id number] (OTC), herbal, dietary supplements or sample medication. ON HOLD An active prescription that will Contact your VA not be filled until pharmacy pharmacy when you need resolves the issue. more of this medication. PARKED An active prescription that will Contact your VA not be filled until the patient pharmacy when you need requests it. this medication. PENDING This prescription order has been If you have been sent to the pharmacy for review instructed to start and is not ready yet. this medication now, contact your VA pharmacy. SUSPENDED An active prescription that is Contact your OR not scheduled to be filled yet. pharmacy if you need You should receive it before this medication now. you run out. ======== Declines printed copy of medication list now. /rajeev/ Perfecto Alcantar OD CHIEF OF OPTOMETRY Signed: 02/04/2024 15:04 PERFECTO ALCANTAR [facility] [place] [facility] Feb 04, 2024 01:46 PM OPTOMETRY NOTE: LOCAL TITLE: OPTOMETRY NOTE STANDARD TITLE: OPTOMETRY NOTE DATE OF NOTE: FEB 04, 2024@13:46 ENTRY DATE: FEB 04, 2024@13:47:05 AUTHOR: CARLOS WOOTEN EXP COSIGNER: PERFECTO ALCANTAR URGENCY: STATUS: COMPLETED Active problems - Computerized Problem List is the source for the followin. Gastroesophageal reflux disease 2. Allergic rhinitis 3. Fibromyalgia 4. Laboratory test result abnormal 5. Shingles 6. Intracranial meningioma 7. Sleep apnea 8. Adjustment disorder with anxious mood (SNOMED CT 60887208) 9. Hydradenitis * 10. Type 2 diabetes mellitus (SNOMED CT 63847907) 11. Insomnia * 12. Hysterectomy * 13. Dizziness * 14. Somatization Disorder 15. Obesity (SNOMED CT 074457646) 16. Headache * 17. Hypertension (SNOMED CT 15649510) 18. Hyperlipidemia (SNOMED CT 43286219) 19. CONRADO - Generalized anxiety disorder (SNOMED CT 60697082) 20. Depression (SNOMED CT 22603076) Active Outpatient Medications (including Supplies): Active Outpatient Medications Status 1) AMLODIPINE BESYLATE 5MG TAB TAKE ONE TABLET BY MOUTH ACTIVE (S) ONCE DAILY FOR BLOOD PRESSURE/HEART, DO NOT TAKE WITH GRAPEFRUIT JUICE 2) ATENOLOL 100MG TAB TAKE ONE TABLET BY MOUTH AT ACTIVE BEDTIME FOR BLOOD PRESSURE/HEART 3) ATORVASTATIN CALCIUM 40MG TAB TAKE ONE-HALF TABLET BY ACTIVE MOUTH DAILY FOR CHOLESTEROL 4) DULOXETINE HCL 30MG EC CAP TAKE ONE CAPSULE BY MOUTH ACTIVE (S) TWICE DAILY 5) EMPAGLIFLOZIN 10MG TAB TAKE [...] MOUTH ONCE ACTIVE DAILY FOR BLOOD PRESSURE/HEART 9) OMEPRAZOLE 20MG EC CAP TAKE ONE CAPSULE BY MOUTH ACTIVE EVERY MORNING 30 MINUTES BEFORE BREAKFAST FOR REFLUX Active Non-VA Medications Status 1) Non-VA ARTIFICIAL [...] Non-VA MULTIVITAMIN W/MINERAL TAB BY MOUTH ACTIVE 19 Total Medications Allergies: OMEPRAZOLE, DILAUDID, MORPHINE, ASPIRIN RELATED MEDICATIONS All medications including those prescribed by outside VA's, community providers,and all OTC meds were reviewed and reconciled with patient to the best of their abilities. This 63 year old FEMALE is seen today for diabetic eye exam. Chief Complaint: patient complains of blurry vision OU. Patient states [employer] is very far from her and would like a consult somewhere closer. Last Eye Exam: 08-15-23 Last A1C: 9.0, 12-09-23 Duration of Type II Diabetes: 9 years OHx: 1. Type II diabetes without retinopathy or macular edema OU 2. Dry eye, MGD OU 3. Hyperopia with presbyopia OU 4. Cataracts OU (-) Pain: (-) GERBER: (-) Diplopia: (-) Flashes: (-) Floaters: (-) Amaurosis Fugax/Tia's: (-) Eye Injury: (-) Eye Surgery: (-) TBI FOHx: (-) Glaucoma/ARMD/Blindness Social Hx: (-) Smoker/Length of Time/PPD: Pupils: PERRL (-)APD EOMs: SAFE OU, (-)Pain/Diplopia CVF (facial, peripheral): FTFC OU Current Rx with last BCVA: OD: +2.25 -0.75 x 065 20/20-1 OS: +2.50 -1.25 x 085 20/20 Add: +2.25 DVA ( )sc ( x )cc OD: 20/25 OS: 20/25 Subjective Refraction: BCVA: OD: +2.00 -0.75 x 065 20/25 OS: +2.50 -1.25 x 085 20/25 Add: +2.25 All the above performed by student, reviewed by attending Anterior segment: Performed by student, repeated by attending Lids: Dermatochalasis OU Conj: clear and quiet OU Sclera: white OU Cornea: pterygium nasal OD,clear OS AC: 4x4 deep & quiet OU Iris: flat and clear OU (-)NVI OU Lens: 2+ NSC OU, 2 - 3+ ACC OS>>OD Tonometry: Goldmann Performed by student, reviewed by attending OD 16 mmHg OS 16 mmHg Time: 2:05 pm Last IOP: OD: 14 mmHg OS: 13 mmHg Fundus exam: Dilated: 2:05 pm Dilating Drops: 1GTT 1 % Tropicamide OU & 1GTT 2.5% Phenylephrine OU (Pt. ed. on side effects, dilation warning given and verbal consent obtained) Patient advised not to drive if they feel they have any symptoms which could affect their ability to drive safely. Patient advised not to engage in any activities which could put themselves or others at risk if they feel they have any symptoms which could affect their ability to perform those activities safely. Performed by student, repeated by attending Vit: clear OU C/D: 0.30/0.30 OD, 0.30/0.30 OS rim tissue is pink and healthy OU (-)NVD OU Macula: flat and clear OU (-)DBH/CSME OU PPole: Drusen in superior and inferior arcades OU (-)DBH/CWS/ESTHER/VB OU A/V: 2/3 OU Vessels: normal caliber OU Periph: flat and intact (-) NVE/holes/tears/detachments 360 OU Assesment and Plan: 1. Type II diabetes without evidence of retinopathy or macular edema OU - Patient was educated on the findings. Importance of following corrrect regimen of Empagliflozin, control of glucose levels and to visit PCP, was discussed. Monitor progression during next CEE. 2. Dry eye syndrome secondary to meibomian gland dysfunction OU - Patient was educated and understanding on findings. Currently symptomatic therefore, the use of lubricating drops BID-QID OU, warm compresses and lid hygiene were recommended. - Monitor during next CEE. 3. Combined cataracts OU - visually significant -Pt ed re today's findings and the importance of UV protection -Pt ed cataracts may cause reduction of BCVA and symptoms of glare -RTC sooner if vision declines or interferes with ADLs - repeated back the plan and education. -Referral for cataract consult 4. Hyperopia with presbyopia OU -Patient educated on findings -No new RX ordered pending cataract consult -Monitor Return to Clinic 1 year for CEE or earlier PRN Patient Education: Diabetes: Patient was educated regarding diabetes and related ocular complications including retinopathy and cataract formation as well as other related systemic complications. The importance of good blood sugar control, blood sugar testing as recommended by their PCP and the importance of timely follow up were all emphasized. /rajeev/ CARLOS WOOTEN OPTOMETRY STUDENT Signed: 02/04/2024 15:57 /rajeev/ Perfecto Alcantar OD CHIEF OF OPTOMETRY Cosigned: 02/05/2024 10:47 CARLOS WOOTEN CN[facility]L [facility]
--- OUTSIDE RECORDS SUMMARY | 2024-12-31 15:31 | XMS_ITS ---
Author Name [place] Address [address] [place] [address] Care Team Providers Care Plate Stacker Name Role Phone YAHAIRA ESCALANTE Primary Care [...] Bueno's Name Patient's Relationship to Policy Bueno [facility] Feb 28, 2004 Jul 01, 2026 [facility] [id number] ЕЛЕНА JORDAN PATIENT W/OME DICAR E Feb 28, 2004 Jul 01, 2026 [facility] [id number] [phone] ЕЛЕНА JORDAN PATIENT [facility] Feb 28, 2004 Jul 01, 2026 [id number] ЕЛЕНА JORDAN PATIENT [facility] Feb 28, 2004 Jul 01, 2026 [id number] KIKO JORDAN JR SPOUSE [facility] Feb 28, 2004 Jul 01, 2026 [id number] [place], ЕЛЕНА PATIENT [facility] Feb 28, 2004 Jul 01, 2026 [facility] [id number] [phone] ЕЛЕНА JORDAN PATIENT [facility] Jun 18, 2015 Jul 01, 2026 [facility] [id number] [phone] SUMMER JORDANTA PATIENT [facility] Jan 19, 2013 Jul 01, 2026 [facility] [id number] [phone] JULIAN, ЕЛЕНА PATIENT [facility] Sep 22, 2012 Jul 01, 2026 [facility] [id number] [phone] SUMMER JORDANTA PATIENT [facility] Sep 22, 2012 Jul 01, 2026 [facility] [id number] KIKO JORDAN JR SPOUSE [facility] Sep 22, 2012 Jul 01, 2026 [facility] [id number] ЕЛЕНА JORDAN PATIENT [facility] Feb 28, 2004 Jul 01, 2026 [facility] [id number] [phone] ЕЛЕНА JORDAN PATIENT [facility]SANDRA MARAN [facility] Jun 18, 2015 [facility] [id number] [phone] ЕЛЕНА JORDAN PATIENT Selected Encounter This section includes the information on record at [place] for the Encounter. Date/Time Encounter Type Encounter Description Reason Pro vider Source Dec 09, 2024 12:00 AM Outpatient Encounter EVENT (HISTORICAL) IHE Encounter Template Text not used by [place] Social History: Smoking Status (Most current) and Tobacco Use (All prior to encounter date) This section includes the most current, and the historical, smoking and tobacco- related health factors from the [place] facility where the Encounter took place. Current Smoking Status This section includes the most current smoking, or tobacco-related health factor, from the [place] facility where the Encounter took place. Date/Time Current Smoking Status Comment Bell romero Dec 09, 2023 01:00 PM VA-TOBACCO NEVER USED [place] [facility] Tobacco Use History This section includes a history of the smoking, or tobacco-related health factors, that were collected on or before the date of the Encounter. The data comes from the [place] facility where the Encounter took place. Date/Time Smoking Status/Tobacco Use Comment F acility Jan 04, 2023 03:00 PM VA-TOBACCO NEVER USED [place] [facility] [place] [facility] Feb 20, 2021 11:30 AM VA-TOBACCO NEVER USED [place] [facility] [place] [facility] Feb 18, 2020 09:39 AM VA-TOBACCO NEVER USED [place] [facility] [place] [facility] Dec 02, 2018 03:30 PM VA-TOBACCO FORMER USER [place] [facility] [place] [facility] Dec 02, 2018 03:30 PM VA-TOBACCO QUIT 15 YRS OR MORE [place] [facility] [place] [facility] Feb 28, 2018 02:37 PM QUIT TOBACCO USE > 7 YEARS AGO [place] [facility] Nov 23, 2016 10:49 AM LIFETIME NON-TOBACCO USER [place] [facility] [place] [facility] April 10, 2005 09:23 AM LIFETIME NON-SMOKER [place] [facility] [place] [facility] April 10, 2005 09:23 AM LIFETIME NON-TOBACCO USER [place] [facility] Advance Directives: All historical and current Section Date Range: From patient's date of to the date document was created. This section includes ALL of a patient's completed or amended [place] Advance and Rescinded Directives. The entries below indicate that a directive exists for the patient, but an actual copy is not included with this document. The data comes from all [place] facilities. Date Advance Directives Provider Source Sep 08, 2009 ADVANCE DIRECTIVE CHOLO CONRAD [facility] Encounter Notes: All associated encounter notes This section contains the clinical notes associated to the Encounter. Date/Time Encounter Note(s) Provider Source Dec 09, 2024 12:00 AM NONVA NOTE: LOCAL TITLE: NON-VA OUTPATIENT NOTES STANDARD TITLE: NONVA NOTE DATE OF NOTE: DEC 09, 2024 ENTRY DATE: DEC 10, 2024@11:01:34 AUTHOR: POPEYE DYSON EXP COSIGNER: URGENCY: STATUS: COMPLETED VistA Imaging - Scanned Document SCANNED DOCUMENT SIGNATURE NOT REQUIRED Electronically Filed: 12/10/2024 by: POPEYEPOPEYE JIMÉENZ [place] [facility] [place] [facility] Dec 09, 2024 12:00 AM RADIOLOGY NONVA NO TE: LOCAL TITLE: NON-VA RADIOLOGY STANDARD TITLE: RADIOLOGY NONVA NOTE DATE OF NOTE: DEC 09, 2024 ENTRY DATE: DEC 10, 2024@12:45:49 AUTHOR: ISSAC RANDOLPH EXP COSIGNER: URGENCY: STATUS: COMPLETED VistA Imaging - Scanned Document SCANNED DOCUMENT SIGNATURE NOT REQUIRED Electronically Filed: 12/10/2024 by: ISSAC MILLER [place] [facility] [place] [facility] Dec 09, 2024 12:00 AM NONVA DIAGNOSTIC S TUDY REPORT: LOCAL TITLE: NON-VA DIAGNOSTICS STANDARD TITLE: NONVA DIAGNOSTIC STUDY REPORT DATE OF NOTE: DEC 09, 2024 ENTRY DATE: DEC 17, 2024@08:00:34 AUTHOR: DIANA THAKKAR MA COSIGNER: URGENCY: STATUS: COMPLETED VistA Imaging - Scanned Document SCANNED DOCUMENT SIGNATURE NOT REQUIRED Electronically Filed: 12/17/2024 by: DIANA THAKKAR ENGINEERING GEOLOGIST DIANA THAKKAR [place] [facility]
--- OUTSIDE RECORDS SUMMARY | 2024-12-31 15:31 | XMS_ITS | Encounter Summary ---
Author Name Department [place] [facility] ([place] Address [address] [place] [id number] Care Team Providers Care Small Machine Bindery Operator Name Role Phone YAHAIRA ESCALANTE Primary Care Provider Unavailselena e Insurance [...] Bueno's Name Patient's Relationship to Policy Bueno [facility] Feb 28, 2004 Jul 01, 2026 [facility] [id number] ЕЛЕНА JORDAN PATIENT W/OME DICAR E Feb 28, 2004 Jul 01, 2026 [facility] [id number] CHANDANCASTRO ЕЛЕНА PATIENT [facility] Feb 28, 2004 Jul 01, 2026 [id number] KIKO JORDAN JR SPOUSE [facility] Feb 28, 2004 Jul 01, 2026 [id number] [phone] ЕЛЕНА JORDAN PATIENT [facility] Feb 28, 2004 Jul 01, 2026 [id number] [phone] ЕЛЕНА JORDAN PATIENT [facility] Feb 28, 2004 Jul 01, 2026 [id number] ЕЛЕНА JORDAN PATIENT [facility] Jun 18, 2015 Jul 01, 2026 [facility] [id number] SUMMER JORDANTA PATIENT [facility] Jan 19, 2013 Jul 01, 2026 [facility] [id number] SUMMER JORDANTA PATIENT [facility] Sep 22, 2012 Jul 01, 2026 [facility] [id number] SUMMER JORDANTA PATIENT [facility] Sep 22, 2012 Jul 01, 2026 [facility] [id number] JULIAN, ЕЛЕНА PATIENT [facility] Sep 22, 2012 Jul 01, 2026 [facility] [id number] KIKO JORDAN JR SPOUSE [facility] Feb 28, 2004 Jul 01, 2026 [facility] [id number] ЕЛЕНА JORDAN PATIENT [facility]/SANDRA MARAN [facility] Jun 18, 2015 [facility] [id number] [phone] ЕЛЕНА JORDAN PATIENT Selected Encounter This section includes the information on record at [place] for the Encounter. Date/Time Encounter Type Encounter Description Reason Provider Source Jul 08, 2024 03:00 PM OFFICE O/P EST MOD 30 MIN [facility] - IND ICD-10-CM F33.8 Other recurrent depressive disorders KENDALL ZHANG Ana Encounter Template Text not used by [place] Assessments - Encounter Diagnoses This section includes the primary and secondary diagnoses documented for the Encounter. Date/Time Primary/Secondary Diagnosis Diagnosis Name Provider Source Jul 08, 2024 07:13 PM PRIMARY Other recurrent depressive disorders AZAEL ZHANG Jul 08, 2024 07:13 PM SECONDARY Generalized anxiety disorder AZAEL ZHANG Plan of Treatment: Future Appointments (+ 6 months) and Future Tests (+/- 45 days) The Plan of Treatment section includes future care activities for the patient from all [place] treatmentfacilities. This section includes future appointments and future orders which are active, pending or scheduled. Future Appointments This section includes appointments that were scheduled to occur 6 months from the date of the Encounter, up to a maximum of 20 appointments. The data comes from all [facility]. Appointment Date/Time Appointment Type Appointme nt Facility Name Jul 09, 2024 01:30 PM AMBULATORY - SURGERY [facility] Sep 04, 2024 11:30 AM AMBULATORY - PSYCHIATRY [facility] Sep 14, 2024 02:00 PM AMBULATORY - MEDICINE [facility] Sep 15, 2024 11:30 AM AMBULATORY - MEDICINE [facility] Active, Pending, and Scheduled Orders This section includes a listing of several types of active, pending, and scheduled orders, including clinic medications orders, diagnostic test orders, procedure orders and consult orders; where the start date of the order is 45 days before the date of the Encounter or 45 days after the date of theEncounter. The data comes from all [facility]. Test Date/Time Test Type Test Details Facility Name Jun 02, 2024 09:21 PM Consult Order PSYCHOTHERAPY [facility] OUTPT Cons Translation Director's Choice [place] Jun 18, 2024 12:00 AM Laboratory - Chemistry Order HEMOGLOBIN A1C PANEL BLOOD (LAV-BLOOD) [facility] Social History: Smoking Status (Most current) and [...] Date/Time Current Smoking Status Comment Bell romero Jan 24, 2022 02:00 PM VA-TOBACCO NEVER USED [facility] Tobacco Use History This section includes a history of the smoking, or tobacco-related health factors, that were collected on or before the date of the Encounter. The data comes from the [place] facility where the Encounter took place. Date/Time Smoking Status/Tobacco Use Comment F acility Nov 29, 2015 02:08 PM LIFETIME NON-TOBACCO USER [facility] Advance Directives: All historical and current Section [...] Sep 08, 2009 ADVANCE DIRECTIVE ANAMARIAANATOLYNadja Thaddeus [facility] Encounter Notes: All associated encounter notes This section contains the clinical notes associated to the Encounter. Date/Time Encounter Note(s) Provider Source Jul 08, 2024 02:54 PM PSYCHIATRY NOTE: LOCAL TITLE: PSYCHIATRY NOTE STANDARD TITLE: PSYCHIATRY NOTE DATE OF NOTE: JUL 08, 2024@14:54 ENTRY DATE: JUL 08, 2024@14:54:55 AUTHOR: AZAEL ZHANG EXP COSIGNER: URGENCY: STATUS: COMPLETED 30 minutes for encounter -- including chart review, interview, charting chart reviewed Patient stable, but has missed cymbalta for several days --some mild withdrawal symptoms, she will last picker prescription today and start again today. She denies depression. Anxiety improved. Affect brightens appropriately. She denies SI and violent ideation. Well organized. No h/o psychotic symptoms. No PI or delusions presented. Cognitive exam grossly intact. Good self-care. No slowing noted. Has interests. We again reviewed the medications, and the patient feels that the Cymbalta is helpful for depression and anxiety and irritability, when compliant. Well-tolerated. The patient denied history of alcohol [...] Adjustment disorder with anxious mood (SNOMED CT 02330484) 9. Hydradenitis * 10. Type 2 diabetes mellitus (SNOMED CT 50886298) 11. Insomnia * 12. Hysterectomy * 13. Dizziness * 14. Somatization Disorder 15. Obesity (SNOMED CT 866067057) 16. Headache * 17. Hypertension (SNOMED CT 36597574) 18. Hyperlipidemia (SNOMED CT 48803097) 19. CONRADO - Generalized anxiety disorder (SNOMED CT 20475987) 20. Depression (SNOMED CT 40669234) Active Outpatient Medications (including Supplies): Active Outpatient Medications Status ======= 1) ACCU-CHEK GUIDE (GLUCOSE) TEST STRIP USE 1 STRIP TO ACTIVE TEST BLOOD SUGARS TWICE A WEEK NEEDED 2) ALCOHOL PREP PAD USE 1 PAD TOPICALLY TWICE A WEEK ACTIVE NEEDED TO CLEAN SKIN FOR INJECTION ETC 3) AMLODIPINE BESYLATE 5MG TAB TAKE ONE TABLET BY MOUTH ACTIVE ONCE DAILY FOR BLOOD PRESSURE/HEART, DO NOT TAKE WITH GRAPEFRUIT JUICE 4) ATENOLOL 100MG TAB TAKE ONE TABLET BY MOUTH AT ACTIVE BEDTIME FOR BLOOD PRESSURE/HEART 5) ATORVASTATIN CALCIUM 40MG TAB TAKE ONE-HALF TABLET BY ACTIVE MOUTH DAILY FOR CHOLESTEROL 6) DULOXETINE HCL 30MG EC CAP TAKE ONE CAPSULE BY MOUTH ACTIVE TWICE DAILY 7) EMPAGLIFLOZIN 10MG TAB TAKE ONE TABLET BY MOUTH ONCE ACTIVE (S) DAILY FOR TYPE 2 DIABETES MELLITUS 8) HYDROCHLOROTHIAZIDE 25MG TAB TAKE ONE TABLET BY MOUTH ACTIVE DAILY TO PREVENT FLUID/CONTROL BLOOD PRESSURE 9) HYDROXYZINE HCL 10MG TAB TAKE ONE TABLET BY MOUTH AT ACTIVE BEDTIME NEEDED FOR INSOMNIA 10) LOSARTAN 100MG TAB TAKE ONE TABLET BY MOUTH ONCE ACTIVE DAILY FOR BLOOD PRESSURE/HEART 11) OMEPRAZOLE 20MG EC CAP TAKE ONE CAPSULE BY MOUTH ACTIVE EVERY MORNING 30 MINUTES BEFORE BREAKFAST FOR REFLUX 12) SEMAGLUTIDE 1MG/0.75ML INJ PEN 3ML INJECT 1MG [...] Non-VA MULTIVITAMIN W/MINERAL TAB BY MOUTH ACTIVE 22 Total Medications PAST PSYCH MED HX: Pt [...] denied suicidal and violent ideation, but the [email or web address] Crisis [facility] information and number were reviewed [...] with the patient. Patient sometimes uses MELATONIN [id number]-[id number] for sleep, in addition to hydroxyzine, well-tolerated consider remeron low dose to augment cymbalta (and to help with sleep)- but pt feel she is doing well with current meds, and does not Remeron at this time Return to clinic 1 -2 mo for medication f/u or sooner thr [...] this VA (local) and dispensed from another VA or DoD facility (remote) as well as inpatient orders [...] /rajeev/ AZAEL ZHANG MD STAFF PSYCHIATRIST Signed: 07/08/2024 19:13 AZAEL ZHANGFIELD
--- OUTSIDE RECORDS SUMMARY | 2024-12-31 15:32 | XMS_ITS | Encounter Summary ---
Author Name Department [place] Address [address] [place] [address] Care Team Providers Care Clinic Mgr Name Role Phone YAHAIRA ESCALANTE Primary Care [...] Name Patient's Relationship to Policy Bueno [facility] Feb 28, 2004 Jul 01, 2026 [facility] [id number] ЕЛЕНА JORDAN PATIENT W/OME DICAR E Feb 28, 2004 Jul 01, 2026 [facility] [id number] ЕЛЕНА JORDAN PATIENT [facility] Feb 28, 2004 Jul 01, 2026 [id number] SP[address] [facility] Feb 28, 2004 Jul 01, 2026 [id number] [phone] ЕЛЕНА JORDAN PATIENT [facility] Feb 28, 2004 Jul 01, 2026 [id number] [phone] ЕЛЕНА JORDAN PATIENT [facility] Feb 28, 2004 Jul 01, 2026 [facility] [id number] [phone] 7 ЕЛЕНА JORDAN PATIENT [facility] Jun 18, 2015 Jul 01, 2026 [facility] [id number] [phone] 7 ЕЛЕНА JORDAN PATIENT [facility] Jan 19, 2013 Jul 01, 2026 [facility] [id number] ЕЛЕНА JORDAN PATIENT [facility] Sep 22, 2012 Jul 01, 2026 [facility] [id number] KIKO JORDAN JR SPOUSE [facility] Sep 22, 2012 Jul 01, 2026 [facility] [id number] ЕЛЕНА JORDAN PATIENT [facility] RX [facility] Sep 22, 2012 Jul 01, 2026 [facility] [id number] ЕЛЕНА JORDAN PATIENT [facility]UM RX [facility] Feb 28, 2004 Jul 01, 2026 [facility] [id number] [phone] ЕЛЕНА JORDAN PATIENT OPTUM/SANDRA MARAN [facility] Jun 18, 2015 [facility] [id number] [phone] ЕЛЕНА JORDAN PATIENT Selected Encounter This section includes the information on record at [place] for the Encounter. Date/Time Encounter Type Encounter Description Reason Pro vider Source Feb 24, 2024 12:46 PM Outpatient Encounter ADMIN PAT ACTIVTIES (MASNONCT) IHE Encounter Template Text not used by [place] Plan of Treatment: Future Appointments (+ 6 months) and Future Tests (+/- 45 days) The Plan of Treatment section includes future care activities for the patient from all [place] [facility] This section includes future appointments and future orders which are active, pending or scheduled. Future Appointments This section includes appointments that were scheduled to occur 6 months from the date of the Encounter, up to a maximum of 20 appointments. The data comes from all [facility]. Appointment Date/Time Appointment Type Appointme nt Facility Name Mar 03, 2024 02:30 PM AMBULATORY - PSYCHIATRY [facility] Mar 05, 2024 02:30 PM AMBULATORY [facility]ICINE [facility] [place] [facility] March 18, 2024 02:30 PM AMBULATORY - MEDICINE [facility] [facility] April 07, 2024 03:00 PM AMBULATORY - MEDICINE [facility] [place] [facility] April 14, 2024 02:00 PM AMBULATORY - NONE [facility] [place] [facility] April 15, 2024 01:00 PM AMBULATORY - MEDICINE [facility] [place] [facility] April 16, 2024 02:00 PM AMBULATORY - NONE [facility] [facility] Apr 21, 2024 01:30 PM AMBULATORY - MEDICINE [facility] [place] [facility] Apr 28, 2024 10:00 AM AMBULATORY - PSYCHIATRY [facility] May 05, 2024 03:00 PM AMBULATORY - MEDICINE [place] [facility] [place] [place] [facility] Jun 02, 2024 02:30 PM AMBULATORY - PSYCHIATRY [facility] Jun 04, 2024 03:30 PM AMBULATORY - MEDICINE [place] [facility] [place] [place] [facility] Jul 08, 2024 03:00 PM AMBULATORY - PSYCHIATRY [facility] Jul 09, 2024 01:30 PM AMBULATORY - SURGERY [facility] Active, Pending, and Scheduled Orders This section includes a listing of several types of active, pending, and scheduled orders, including clinic medications orders, diagnostic test orders, procedure orders and consult orders; where the start date of the order is 45 days before the date of the Encounter or 45 days after the date of theEncounter. The data comes from all [place] treatment [facility]. Test Date/Time Test Type Test Details Facility Name March 18, 2024 12:00 AM Laboratory - Chemistry Order HEMOGLOBIN A1C PANEL BLOOD (LAV-BLOOD) [facility] [place] [facility] Social History: Smoking Status (Most [...] Encounter took place. Date/Time Current Smoking Status Seymour romero Dec 09, 2023 01:00 PM VA-TOBACCO NEVER USED [facility] Tobacco Use History This section includes a history of the smoking, or tobacco-related health factors, that were collected on or before the date of the Encounter. The data comes from the [place] facility where the Encounter took place. Date/Time Smoking Status/Tobacco Use Comment Chung doss Jan 04, 2023 03:00 PM [facility] Feb 20, 2021 11:30 AM [facility]TO[facility]ACCO [facility] Feb 18, 2020 09:39 AM VA-TOBACCO [facility] USED [facility] Dec 02, 2018 03:30 PM VA-TOBACCO [facility] Dec 02, 2018 03:30 PM VA-TOBACCO QUIT 15 YRS OR MORE [facility] Feb 28, 2018 02:37 PM QUIT TOBACCO USE > 7 YEARS AGO [facility] Nov 23, 2016 10:49 AM LIFETIME NON-TOBACCO [facility] April 10, 2005 09:23 AM LIFETIME NON-SMOKER [facility] April 10, 2005 09:23 AM LIFETIME NON-TOBACCO USER [facility] Advance Directives: All historical and current [...] Sep 08, 2009 ADVANCE DIRECTIVE CHOLO CONRAD [facility] Encounter Notes: All associated encounter notes This section contains the clinical notes associated to the Encounter. Date/Time Encounter Note(s) Provider Source Feb 24, 2024 12:46 PM PHARMACY NOTE: LOCAL TITLE: V1 PHARMACY CUSTOMER CARE MEDICATION RENEWAL STANDARD TITLE: PHARMACY NOTE DATE OF NOTE: FEB 24, 2024@12:46 ENTRY DATE: FEB 24, 2024@12:46:44 AUTHOR: GRACE DIAMOND COSIGNER: URGENCY: STATUS: COMPLETED Date: Feb Division: [place] Pt referred by Pharmacy Call Center for medication renewal: Non-controlled/maintenan ce medication Medications requested: Rx #: [id number] ATENOLOL 100MG TAB Defer to primary care provider To be mailed . Please review and renew if appropriate. *This note was generated by [facility] [facility] Customer Care. If you have any questions or need assistance, do not contact this author. Please refer all questions to your local, on-site pharmacy departments. /rajeev/ GRACE DIAMOND CPhT [employer]ustainable Landscape [employer], [place]/Pharmacy Customer Care Signed: 02/24/2024 12:46 Receipt Acknowledged By: 02/25/2024 07:56 /es/ RUBI MCMILLAN Nurse Practitioner 02/24/2024 15:39 /es/ LEVI BETANCUR, MSN, RN, CNL PRIMARY CARE TEAM NURSE GRACE DIAMOND [facility]
--- OUTSIDE RECORDS SUMMARY | 2024-12-31 15:32 | XMS_ITS ---
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 W/OME DICAR E Feb 28, 2004 Jul 01, 2026 [facility] [id number] ЕЛЕНА JORDAN PATIENT [facility] Feb 28, 2004 Jul 01, 2026 [id number] [phone] KIKO JORDAN JR SP[facility] Feb 28, 2004 Jul 01, 2026 [id number] [phone] ЕЛЕНА JORDAN PATIENT [facility] Feb 28, 2004 Jul 01, 2026 [id number] ЕЛЕНА JORDAN PATIENT [facility] Feb 28, 2004 Jul 01, 2026 [id number] ЕЛЕНА JORDAN PATIENT [facility] Jun 18, 2015 Jul 01, 2026 [facility] [id number] [id number] [id number] ЕЛЕНА JORDAN PATIENT [facility] Jan 19, 2013 Jul 01, 2026 [facility] [id number] SUMMER JORDANTA PATIENT [facility] Sep 22, 2012 Jul 01, 2026 [facility] [id number] ЕЛЕНА JORDAN PATIENT [facility] Sep 22, 2012 Jul 01, 2026 [facility] [id number] KIKO JORDAN JR SPOUSE [facility] Sep 22, 2012 Jul 01, 2026 [facility] [id number] ЕЛЕНА [facility]ORDAN [facility] Feb 28, 2004 Jul 01, 2026 [facility] [id number] [phone] ЕЛЕНА JORDAN PATIENT [facility] Jun 18, 2015 [facility] [id number] ЕЛЕНА JORDAN PATIENT Selected Encounter This section includes the information on record at [place] for the Encounter. Date/Time Encounter Type Encounter Description Reason Provider Source Apr 21, 2024 01:30 PM OFF/OP EST MARCH X REQ PHY/QHP PRIMARY CARE/MEDICINE ICD-10-CM H26.8 Other specified cataract LEVI BETANCUR IHAna Encounter Template Text not used by [place] Assessments - Encounter Diagnoses This section includes the primary and secondary diagnoses documented for the Encounter. Date/Time Primary/Secondary Diagnosis Diagnosis Name Provider Source May 01, 2024 12:29 PM PRIMARY Other specified cataract NAGI PINO [place] [facility] [place] [facility] Plan of Treatment: Future Appointments (+ 6 [...] 20 appointments. The data comes from all [facility]. Appointment Date/Time Appointment Type Appointme nt Facility Name Apr 28, 2024 10:00 AM AMBULATORY - PSYCHIATRY [facility] May 05, 2024 03:00 PM AMBULATORY MEDICINE [facility] Jun 02, 2024 02:30 PM AMBULATORY - PSYCHIATRY [facility] Jun 04, 2024 03:30 PM AMBULATORY MEDICINE [facility] Jul 08, 2024 03:00 PM AMBULATORY - PSYCHIATRY [facility] Jul 09, 2024 01:30 PM AMBULATORY - SURGERY [facility] Sep 04, 2024 11:30 AM AMBULATORY - PSYCHIATRY [facility] Sep 14, 2024 02:00 PM AMBULATORY MEDICINE [facility] Sep 15, 2024 11:30 AM AMBULATORY MEDICINE [facility] Active, Pending, and Scheduled Orders This section includes a listing of several types of active, pending, and scheduled orders, including clinic medications orders, diagnostic test orders, procedure orders and consult orders; where the start date of the order is 45 days before the date of the Encounter or 45 days after the date of theEncounter. The data comes from all [facility]. Test Date/Time Test Type Test Details Facility Name March 18, 2024 12:00 AM Laboratory - Chemistry Order HEMOGLOBIN A1C PANEL BLOOD (LAV-BLOOD) [facility] Jun 02, 2024 09:21 PM Consult Order PSYCHOTHERAPY SOPC OUTPT Cons [facility] [place] Lab Results: +/- 30 days of the [...] Range Comment Apr 21, 2024 02:06 PM [facility] BASIC METABOLIC PANEL (non-fasting) Specimen Type: SERUM No comment entered. Ordering Provider: YAHAIRA ESCALANTE Report Released Date/Time: April 17, 2024 01:15 PM Reporting Lab: [facility] [address] [facility] [facility] [address] Performing Lab: [address] [address] UREA NITROGEN 15 mg/dL 7-25 GLUCOSE 140 mg/dL H 65-100 SODIUM 135 mmol/L 135-145 POTASSIUM 3.9 mmol/L 3.5-5.0 CHLORIDE 100 mmol/L 100-110 CO2 26 meq/L 20-30 CREATININE, Serum 0.69 mg/dL 0.50-1.40 eGFR(CKD-EPI 2020) >90 mL/min >60 Apr 21, 2024 02:06 PM [facility] HEMOGLOBIN A1C PANEL Specimen Type: BLOOD [...] April 17, 2024 01:15 PM Reporting Lab: [facility] [address] [facility] [address] Performing Lab: [address] [address] HEMOGLOBIN A1C 7.6 H 4.0-5.6 Apr 21, 2024 02:06 PM [facility] CBC Specimen Type: BLOOD No comment entered. Ordering Provider: YAHAIRA ESCALANTE Report Released Date/Time: April 17, 2024 01:15 PM Reporting Lab: [facility] [address] [facility] [address] Performing Lab: [address] [address] WBC 9.47 10*3/uL 4.50-11.00 RBC 4.60 10*6/uL [...] 09, 2023 01:00 PM VA-TOBACCO NEVER USED [place] [facility] [place] [facility] Tobacco Use History This section includes a history of the smoking, or tobacco-related health factors, that were collected on or before the date of the Encounter. The data comes from the [place] facility where the Encounter took place. Date/Time Smoking Status/Tobacco Use Comment F acility Jan 04, 2023 03:00 PM VA-TOBACCO NEVER USED [facility] [place] [facility] Feb 20, 2021 11:30 AM VA-TOBACCO NEVER USED [facility] [place] [facility] Feb 18, 2020 09:39 AM VA-TOBACCO NEVER USED [facility] [place] [facility] Dec 02, 2018 03:30 PM VA-TOBACCO FORMER USER [facility] [place] [facility] Dec 02, 2018 03:30 PM VA-TOBACCO QUIT 15 YRS OR MORE [facility] [place] [facility] Feb 28, 2018 02:37 PM QUIT TOBACCO USE > 7 YEARS AGO [facility] [place] [facility] Nov 23, 2016 10:49 AM LIFETIME NON-TOBACCO USER [facility] [place] [facility] April 10, 2005 09:23 AM LIFETIME NON-SMOKER [facility] [place] [facility] April 10, 2005 09:23 AM LIFETIME NON-TOBACCO USER [facility] [place] [facility] Advance Directives: All historical and current Section [...] Sep 08, 2009 ADVANCE DIRECTIVE CHOLO CONRAD [facility] Encounter Notes: All associated encounter notes This section contains the clinical notes associated to the Encounter. Date/Time Encounter Note(s) Provider Source Apr 21, 2024 02:25 PM CARDIOLOGY DIAGNOS TIC STUDY CONSULT: LOCAL TITLE: CONSULT REPORT/EKG STANDARD TITLE: CARDIOLOGY DIAGNOSTIC STUDY CONSULT DATE OF NOTE: APR 21, 2024@14:25 ENTRY DATE: APR 21, 2024@14:25:38 AUTHOR: LEVI BETANCUR EXP COSIGNER: URGENCY: STATUS: COMPLETED EKG tracing was performed for diagnosis of Preprocedural examination ordered by YAHAIRA ESCALANTE. /rajeev/ LEVI BETANCUR MSN, RN, CNL PRIMARY CARE TEAM NURSE Signed: 04/21/2024 14:26 [facility]UR [place] [facility]
--- OUTSIDE RECORDS SUMMARY | 2024-12-31 15:32 | XMS_ITS | Continuity of Care Document ---
Author Name [facility] Organization 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 Unavailable Unavailable Problems Combined list of problems from Department of Defense and Veterans Affairs facilities. It does not include entries that were removed or entered in error. Problem Status Onset Date Problem Type Date of Resolution Comments Source Headache * (ICD-9-CM 784.0) Active 010 Condition [facility] Adjustment disorder with anxious mood (SNOMED CT 21463763) Active Condition [place] Allergic rhinitis Active Condition [facility] Depression (SNOMED CT 74179009) Active Condition Nov 24, 2010 Entered By: AZAEL ZHANG Comment: denies recetn depressionMar 12, 2019 Entered By: AZAEL ZHANG Comment: reviewedDec 2018 Entered By: AZAEL ZHANG Comment: reviewedMar 2020 Entered By: AZAEL ZHANG Comment: reviewedMar 2021 Entered By: AZAEL ZHANG Comment: reviewedFeb 2023 Entered By: AZAEL ZHANG Comment: Reviewed [facility] Dizziness * (ICD-9-CM 780.4) Active Condition [facility] Fibromyalgia Active Condition [facility] [place] - Generalized anxiety disorder (SNOMED CT 62140955) Active Condition Mar 12, 2019 Entered By: AZAEL ZHANG Comment: reviewedDec 2018 Entered By: AZAEL ZHANG Comment: reviewedMar 2020 Entered By: AZAEL ZHANG Comment: reviewedMar 2021 Entered By: AZAEL ZHANG Comment: reviewedFeb 2023 Entered By: AZAEL ZHANG Comment: Reviewed [facility] Gastroesophageal reflux disease Active Condition [facility] Hydradenitis * (ICD-9-CM 705.83) Active Condition [facility] Hyperlipidemia (SNOMED CT 10427072) Active Condition [facility] Hypertension (SNOMED CT 69108240) Active Condition [facility] Hysterectomy * (ICD-9-CM 621.8) Active Condition [facility] Hysterectomy * (ICD-9-CM 621.8) Active Condition Oct 28 0 Entered By: ELTON PICKARD Comment: RENEE BSO 09/26 for metrorrhagia, fibroid [facility] Infiltrating duct carcinoma of breast Active Condition [facility] Insomnia * (ICD-9-CM 780.52) Active Condition [facility] Intracranial meningioma Active Condition Jan 13, 2015 Entered By: JONI COOLEY Comment: 12/16/14 6mm and 3mm - repeat MRI 1 2016 Entered By: CECY OVIEDO Comment: stable on MRI 01/31, repeat ordered for [facility] Laboratory test result abnormal Active Condition Mar 17, 2015 Entered By: ELTON PICKARD Comment: HAILEY 1: 160 speckled and homogeneous [facility] Obesity (SNOMED CT 462228687) Active Condition [facility] OBSTRUCTIVE SLEEP APNEA Active Condition [facility] Other Specified Aftercare Following Surgery (ICD-9-CM V58.49) Active Condition [facility] Other Specified Preoperative Examination (ICD-9-CM V72.83) Active Condition [facility] Postmenopausal Bleeding Active Condition [facility] Shingles Active Condition [facility] Sleep apnea Active Condition [facility] Somatization Disorder Active Condition [facility] Type 2 diabetes mellitus (SNOMED CT 00938418) Active Condition [facility] Uterine Fibroids Active Condition [facility] Abdominal Pain Inactive Condition 10/28/2010 Jul 09, 2007 Entered By: JOSE DANIEL SHEPARD Comment: egd 05/24 by sreekanth barlow md [phone] negative [facility] Acculturation Problems Inactive Condition 09/02/2018 [facility] Adjustment reaction with mixed disturbance of emotions and conduct Inactive Condition 09/02/2018 [facility] Candidiasis of mouth Inactive Condition 09/02/2018 [facility] Low Back Pain, Lumbago Inactive Condition 10/28/2010 [facility] Menopausal or female climacteric states (ICD-9-CM 627.2) Inactive Condition 10/28/2010 [facility] Menopausal syndrome (ICD-9-CM 627.2) Inactive Condition 09/02/2018 [facility] Other Malaise and Fatigue (ICD-9-CM 780.79) Inactive Condition 09/02/2018 [facility] Primary fibromyalgia syndrome Inactive Condition 09/02/2018 [facility] Rash Inactive Condition 01/18/2016 [facility] Signs and symptoms in breast (ICD-9-CM 611.79) Inactive Condition 09/02/2018 Oct 28 10 Entered By: ELTON PICKARD Comment: chronic left mastalgia [facility] Tendinitis * (ICD-9-CM 726.90) Inactive Condition 10/01/2006 [facility] Diagnosis: ICD-10-CM Z71.9 Counseling, unspecified Active Diagnosis [facility] Diagnosis: ICD-10-CM Z96.1 Presence of intraocular lens Active Diagnosis [facility] Diagnosis: ICD-10-CM Z23 Encounter for immunization Active Diagnosis [facility] Diagnosis: ICD-10-CM 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 [place] Diagnosis: ICD-10-CM E11.9 Type 2 diabetes mellitus without complications Active Diagnosis [facility] Diagnosis: ICD-10-CM F41.1 Generalized anxiety disorder Active Diagnosis [place] Diagnosis: ICD-10-CM Z13.6 Encounter for screening for cardiovascular disorders Active Diagnosis [facility] Diagnosis: ICD-10-CM H26.8 Other specified cataract Active Diagnosis [facility] Diagnosis: ICD-10-CM Z71.89 Other specified counseling Active Diagnosis [facility] Diagnosis: ICD-10-CM R21 Rash and other nonspecific skin eruption Active Diagnosis [facility] Diagnosis: ICD-10-CM Z13.89 Encounter for screening for other disorder Active Diagnosis [place] Diagnosis: ICD-10-CM Z12.11 Encounter for screening for malignant neoplasm of colon Active Diagnosis [facility] Medications Combined list of outpatient medications from Department of Defense and Veterans Affairs facilities.Medications provided include 1) outpatient medications from the last 15 months, and 2) patient-reported medications. Medication Details Route Status Patient Instructions Prescription Expires Prescription Number Last Dispense Date Ordering Provider Order Date Order Qty Source AMLODIPINE BESYLATE 5MG TAB TAKE ONE TABLET BY MOUTH ONCE DAILY FOR BLOOD PRESSURE /HEART, DO NOT TAKE WITH GRAPEFRU IT JUICE ORAL ACTIVE 09/15/2025 [id number] YOVANI ESCALANTEA RADHA 2023 90 [facility] AMLODIPINE BESYLATE 5MG TAB TAKE ONE TABLET BY MOUTH ONCE DAILY FOR BLOOD PRESSURE /HEART, DO NOT TAKE WITH GRAPEFRU IT JUICE ORAL DISCONT INUED 07/17/2025 [id number] AVA, YAHAIRA RADHA 2023 90 [facility] AMLODIPINE BESYLATE 5MG TAB TAKE ONE TABLET BY MOUTH ONCE DAILY FOR BLOOD PRESSURE /HEART, DO NOT TAKE WITH GRAPEFRU IT JUICE ORAL DISCONT INUED 08/12/2024 [id number] SVETLANA WEATHERS JAWED 2022 90 [facility] ASCORBIC ACID 500MG TAB TAKE ONE TABLET BY MOUTH DAILY ORAL ACTIVE MIHAELA PICKARD 2011 [facility] ATENOLOL 100MG TAB TAKE ONE TABLET BY MOUTH AT BEDTIME FOR BLOOD PRESSURE /HEART ORAL ACTIVE 02/25/2025 [id number] AVA, YAHAIRA RADHA 2023 90 [facility] ATENOLOL 100MG TAB TAKE ONE TABLET BY MOUTH AT BEDTIME FOR BLOOD PRESSURE /HEART ORAL DISCONT INUED 03/05/2024 [id number] LENORAN ICOLE 2022 90 [facility] ATORVASTATI N CA 40MG TAB TAKE ONE-HALF TABLET BY MOUTH DAILY FOR CHOLESTE ROL ORAL ACTIVE 04/09/2025 [id number] 5 AVA, YAHAIRA RADHA 2023 45 [facility] [place] ATORVASTATI N CA 40MG TAB TAKE ONE-HALF TABLET BY MOUTH DAILY FOR CHOLESTE ROL ORAL DISCONT INUED 04/03/2024 [id number] LENORAN ICOLE 2022 45 [facility] CETIRIZINE HCL 10MG TAB TAKE ONE TABLET BY MOUTH ONCE DAILY ORAL ACTIVE Nadja COOLEY ICOLE 2018 [facility] CHOLECALCIF ALEX 25MCG (1,000UNIT) TAB TAKE ONE TABLET BY MOUTH ONCE DAILY ORAL ACTIVE Nadja COOLEY ICOLE 2020 [facility] DEXTROMETHO RPHAN HBR 10MG/GUAIFE NESIN 100MG/5ML (SF & AF) SYRUP TAKE 2 TEASPOON FULS BY MOUTH THREE TIMES DAILY NEEDED ORAL ACTIVE AZAEL CASTELLON 2017 [facility] DULOXETINE HCL 20MG CAP,EC TAKE TWO CAPSULES BY MOUTH ONCE DAILY DEPRESSI ON ORAL DISCONT INUED (EDIT) 06/21/2024 [id number] Thaddeus ZHANG 2022 60 [place] DULOXETINE HCL 30MG CAP,EC TAKE ONE CAPSULE BY MOUTH TWICE DAILY DEPRESSI ON ORAL ACTIVE 09/05/2025 [id number] Thaddeus ZHANG 2023 120 [place] DULOXETINE HCL 30MG CAP,EC TAKE ONE CAPSULE BY MOUTH TWICE DAILY ORAL DISCONT INUED (EDIT) 12/24/2024 [id number] Thaddeus ZHANG 2023 60 [place] EMPAGLIFLOZ IN 10MG TAB TAKE ONE TABLET BY MOUTH ONCE DAILY FOR TYPE 2 DIABETES MELLITUS ORAL ACTIVE 04/08/2025 [id number] ANNALISA MARTINEZ 2023 90 [facility] EMPAGLIFLOZ IN 10MG TAB TAKE ONE TABLET BY MOUTH ONCE DAILY FOR TYPE 2 DIABETES MELLITUS TO REPLACE METFORMI N ORAL DISCONT INUED BY PROVIDE R 08/23/2024 [id number] Nadja COOLEY ICOLE 2022 90 [facility] FLUTICASONE PROPIONATE 50MCG/SPRAY SOLN,NASAL, 16GM INSTILL 2 SPRAYS INTO EACH NOSTRIL ONCE DAILY NASAL ACTIVE Nadja COOLEY ICOLE 2018 [facility] FLUTICASONE PROPIONATE 50MCG/SPRAY SOLN,NASAL, 16GM INSTILL 2 SPRAYS INTO EACH NOSTRIL DAILY NASAL ACTIVE AZAEL CASTELLON 2017 [facility] HYDROCHLORO THIAZIDE 25MG TAB TAKE ONE TABLET BY MOUTH DAILY TO PREVENT FLUID/CO NTROL BLOOD PRESSURE ORAL ACTIVE 04/25/2025 [id number] 4 YAHAIRA ESCALANTE 2023 90 [facility] HYDROCHLORO THIAZIDE 25MG TAB TAKE ONE TABLET BY MOUTH DAILY TO PREVENT FLUID/CO NTROL BLOOD PRESSURE ORAL DISCONT INUED 03/18/2024 [id number] Nadja COOLEY ICOLE 2022 90 [facility] HYDROXYZINE HCL 10MG TAB TAKE ONE TABLET BY MOUTH AT BEDTIME NEEDED FOR INSOMNIA ORAL ACTIVE 07/09/2025 [id number] Thaddeus ZHANG 2023 30 [place] HYDROXYZINE HCL 10MG TAB TAKE ONE TABLET BY MOUTH AT BEDTIME NEEDED FOR INSOMNIA ORAL DISCONT INUED (EDIT) 04/09/2025 [id number] 4 AVA, YAHAIRA RADHA 2023 15 [facility] HYDROXYZINE HCL 10MG TAB TAKE ONE TABLET BY MOUTH AT BEDTIME NEEDED FOR INSOMNIA ORAL DISCONT INUED 12/24/2024 [id number] Thaddeus ZHANG G 2023 15 [place] IBUPROFEN 600MG TAB TAKE ONE TABLET BY MOUTH THREE TIMES A DAY NEEDED ORAL ACTIVE ZACK OVIEDO TH M 2016 [facility] [place] POTASSIUM 100MG TAB TAKE ONE TABLET BY MOUTH ONCE DAILY FOR BLOOD PRESSURE /HEART ORAL ACTIVE 04/09/2025 [id number] AVA, YAHAIRA RADHA 2023 90 [facility] [place] POTASSIUM 100MG TAB TAKE ONE TABLET BY MOUTH ONCE DAILY FOR BLOOD PRESSURE /HEART ORAL DISCONT INUED 04/03/2024 [id number] KIRCHEN,N ICOLE 2022 90 [facility] MELATONIN CAP/TAB TAKE BY MOUTH ORAL ACTIVE Thaddeus ZHANG 2023 [place] MULTIVITAMI N W/MINERAL TAB TAKE BY MOUTH ORAL ACTIVE MELLYLY NN S 2014 [facility] OMEPRAZOLE 20MG CAP,EC TAKE ONE CAPSULE BY MOUTH EVERY MORNING 30 MINUTES BEFORE BREAKFAS T FOR REFLUX ORAL ACTIVE 04/09/2025 [id number] 4 AVA, YAHAIRA RADHA 2023 90 [facility] POLYVINYL ALCOHOL 1.4% SOLN,OPH INSTILL 1 DROP INTO EACH EYE FOUR TIMES A DAY OPHTHA LMIC ACTIVE Octavio ALCANTAR ICHELE 2021 [facility] SEMAGLUTIDE 0.25MG/0.37 5ML INJ,SOLN,PE N,3ML INJECT 0.5MG SUBCUTAN EOUSLY ONCE A WEEK SUBCUT ANEOUS DISCONT INUED BY PROVIDE R 03/06/2025 [id number] ANNALISA MARTINEZ 2023 1 [facility] SEMAGLUTIDE 0.25MG/0.37 5ML INJ,SOLN,PE N,3ML INJECT 0.25MG SUBCUTAN EOUSLY ONCE A WEEK FOR 4 WEEKS, THEN INJECT 0.5MG ONCE A WEEK FOR 2 WEEKS SUBCUT ANEOUS DISCONT INUED BY PROVIDE R 03/25/2024 [id number] 4 GDANNALISA MCGRATH I A 2023 1 [facility] SEMAGLUTIDE 1MG/0.75ML INJ,SOLN,PE N,3ML INJECT 1MG SUBCUTAN EOUSLY ONCE A WEEK SUBCUT ANEOUS ACTIVE 04/16/2025 [id number] 4 ANNALISA MARTINEZ 2023 1 [facility] TRIAMCINOLO NE ACETONIDE 0.1% OINT,TOP APPLY SMALL AMOUNT TOPICALL Y TWICE DAILY DIRECTED TOPICA L DISCONT INUED 04/17/2024 [id number] YAHAIRA ESCALANTE 2023 454 [facility] [place] [facility] TRIAMCINOLO NE ACETONIDE 0.1% OINT,TOP APPLY SMALL AMOUNT TOPICALL Y TWICE DAILY DIRECTED TOPICA L 05/17/2024 [id number] 4 YAHAIRA ESCALANTE 2023 454 [facility] Allergies, Adverse Reactions, Alerts Combined list of allergies from Department of Defense and Veterans Affairs facilities. It does not include entries that were removed or entered in error. Substance Category Reaction Severity Reaction type Status Date Reported Comments Source ASPIRIN RELATED MEDICATIONS Propensity to adverse reactions to drug (finding) Nausea and vomiting MILD active 4 [facility] DILAUDID Propensity to adverse reactions to drug (finding) Itching, Eruption active 0 [facility] DILAUDID INJECTION 1 MG/ML Propensity to adverse reactions to drug (finding) Nausea and vomiting MODERATE active 9 [facility] MORPHINE Propensity to adverse reactions to drug (finding) Itching SEVERE active 9 [facility] MORPHINE Propensity to adverse reactions to drug (finding) active 0 [facility] OMEPRAZOLE Propensity to adverse reactions to drug (finding) Urticaria active 7 [facility] OMEPRAZOLE Propensity to adverse reactions to drug (finding) active 9 [facility] Immunizations Combined list of available immunizations from the Department of Defense and Veterans Affairs facilities. Immunization Series Date Given Administered By Site Reaction Lot Number CVX Code Drug Coroner Status Comments Source INFLUENZA, SPLIT VIRUS, TRIVALENT, PF 2023 LEVI BETANCUR RIGHT DELTO ID [id number] 140 complet ed [facility] INFLUENZA, INJECTABLE, QUADRIVALENT, PRESERVATIVE FREE 2022 CARLIE KISER RIGHT DELTO ID [id number] A 150 complet ed [facility] PNEUMOCOCCAL CONJUGATE PCV20, POLYSACCHARID E [id number] CONJUGATE, ADJUVANT, PF 2022 CARLIE KISER LEFT DELTO ID [id number] 216 complet ed [facility] INFLUENZA, INJECTABLE, QUADRIVALENT, PRESERVATIVE FREE 2021 SUNITA GERARD LEFT DELTO ID [id number] 150 complet ed [facility] COVID-19 (MODERNA), MRNA, LNP-S, PF, 100 MCG OR 50 MCG DOSE 3 2020 207 complet ed MOD; [id number]; 2 [place] INFLUENZA, UNSPECIFIED FORMULATION 2020 88 complet ed [facility] TD (ADULT), 5 LF TETANUS TOXOID, PRESERVATIVE FREE, ADSORBED 2020 113 complet ed [facility] ZOSTER RECOMBINANT 2 2020 187 complet ed [facility] COVID-19 (MODERNA), MRNA, LNP-S, PF, 100 MCG/0.5 ML DOSE 2 2020 207 complet ed MOD; [id number]; 1 [place] COVID-19 (MODERNA), MRNA, LNP-S, PF, 100 MCG/0.5 ML DOSE 1 2020 207 complet ed MOD; [id number]; 1 [place] INFLUENZA, INJECTABLE, QUADRIVALENT, PRESERVATIVE FREE 2019 150 complet ed [facility] ZOSTER RECOMBINANT 1 2019 187 complet ed [facility] INFLUENZA, SEASONAL, INJECTABLE 2017 141 complet ed Site: Left Deltoid [facility] INFLUENZA, SEASONAL, INJECTABLE 2016 141 complet ed Site: Left Deltoid [facility] FLU,3 YRS (HISTORICAL) 2015 88 complet ed Site: Left Deltoid [facility] FLU,3 YRS (HISTORICAL) 2014 88 complet ed Site: Right Deltoid [facility] FLU,3 YRS (HISTORICAL) 2013 88 complet ed Site: Left Deltoid [facility] FLU,3 YRS (HISTORICAL) 2012 88 complet ed Site: Right Deltoid [place] FLU,3 YRS (HISTORICAL) 2011 88 complet ed Site: Left Deltoid [facility] PNEUMOCOCCAL, UNSPECIFIED FORMULATION 2011 109 complet ed Site: Left Deltoid [facility] FLU,3 YRS (HISTORICAL) 2010 88 complet ed Site: Left Deltoid [place] DTAP, UNSPECIFIED FORMULATION 2010 JUANA GUAMAN 107 complet ed [facility] TDAP 2010 115 complet ed [facility] FLU,3 YRS (HISTORICAL) 2009 88 complet ed Site: Left Deltoid [place] FLU,3 YRS (HISTORICAL) 2008 88 complet ed [facility] FLU,3 YRS (HISTORICAL) 2008 88 complet ed Site: Right Deltoid [facility] FLU,3 YRS (HISTORICAL) 2006 88 complet ed Site: Left Deltoid [facility] FLU,3 YRS (HISTORICAL) 2005 88 complet ed [place] FLU,3 YRS (HISTORICAL) 2004 SUNI HO 88 complet ed [facility] FLU,3 YRS (HISTORICAL) 2003 JUAN BORGES 88 comple t ed [place] Results Combined list of recent chemistry, hematology and other laboratory results from Department of Defense and Veterans Affairs, ranging from 15 months to all on record, depending upon the facility. Order Name Results Value Reference Range Date Interpretation Specimen Comments Source HEMOGLOB IN A1C PANEL HEMOGLOBIN A1C/HEMOGL OBIN.TOTAL IN BLOOD BY HPLC 8.1 4.0 - 5.6 09/14 H Specimen Type: BLOOD Comment: Values obtained from A1C measurement s can vary. For atypical A1C assays, a reported value of 7.0 could actually be between 6.72 and 7.28 if measured by a reference method. A reported value of 9.0 could actually be between 8.73 and 9.27. Ref: http://www. ngsp.org/[place] Pdata.asp Ordering Provider: PUNEET ESCALANTE SA Report Released Date/Time: Sep 14, 2024 02:24 PM Reporting Lab: [facility] [place] [facility] [address] [address] Performing Lab: [facility] [place] [facility] [address] [address] [place] [facility] [facility] MICROALB UMIN CREATINI NE RATIO PANEL MICROALBUM IN/CREATIN INE [MASS RATIO] IN URINE cancmg/g 0 - 29.9 09/14 Specimen Type: URINE No comment entered. Ordering Provider: PUNEET ESCALANTE SA Report Released Date/Time: Sep 14, 2024 02:25 PM Reporting Lab: [facility] [place] [facility] [address] [address] Performing Lab: [facility] [address] [address] [facility] [place] [facility] [place] MICROALB UMIN CREATINI NE RATIO PANEL MICROALBUM IN [MASS/VOLU ME] IN URINE < 0.5mg/dL 09/14 Specimen Type: URINE No comment entered. Ordering Provider: PUNEET ESCALANTE SA Report Released Date/Time: Sep 14, 2024 02:25 PM Reporting Lab: [facility] [place] [address] [address] Performing Lab: [facility] [address] [facility] [place] [facility] MICROALB UMIN CREATINI NE RATIO PANEL CREATININE [MASS/VOLU ME] IN URINE 27.03 mg/dL 09/14 Specimen Type: URINE No comment entered. Ordering Provider: PUNEET ESCALANTE SA Report Released Date/Time: Sep 14, 2024 02:25 PM Reporting Lab: [facility] [address] [address] Performing Lab: [facility] [address] [phone] [facility] [place] [facility] HEMOGLOB IN A1C PANEL HEMOGLOBIN A1C/HEMOGL OBIN.TOTAL IN BLOOD BY HPLC 7.6 4.0 - 5.6 04/21 H Specimen Type: BLOOD Comment: Values obtained from A1C measurement s can vary. For atypical A1C assays, a reported value of 7.0 could actually be between 6.72 and 7.28 if measured by a reference method. A reported value of 9.0 could actually be between 8.73 and 9.27. Ref: http://www. ngsp.org/[place] Pdata.asp Ordering Provider: PUNEET ESCALANTE SA Report Released Date/Time: April 17, 2024 01:15 PM Reporting Lab: [facility] [address] Performing Lab: [facility] [place] [facility] [address] [address] [facility] [place] CBC LEUKOCYTES [#/VOLUME] IN BLOOD BY AUTOMATED COUNT 9.47 10*3/uL 4.50 - 11.00 04/21 Specimen Type: BLOOD No comment entered. Ordering Provider: PUNEET ESCALANTE SA Report Released Date/Time: April 17, 2024 01:15 PM Reporting Lab: [facility] [place] [address] [address] Performing Lab: [facility] [place] [facility] [address] [address] [facility] CBC ERYTHROCYT ES [#/VOLUME] IN BLOOD BY AUTOMATED COUNT 4.60 10*6/uL 3.93 - 5.16 04/21 Specimen Type: BLOOD No comment entered. Ordering Provider: PUNEET ESCALANTE SA Report Released Date/Time: April 17, 2024 01:15 PM Reporting Lab: [facility] [place] [address] [address] Performing Lab: [facility] [place] [address] [address] [facility] [place] [facility] CBC HEMOGLOBIN [MASS/VOLU ME] IN BLOOD 13.9 g/dL 12 - 15.2 04/21 Specimen Type: BLOOD No comment entered. Ordering Provider: PUNEET ESCALANTE SA Report Released Date/Time: April 17, 2024 01:15 PM Reporting Lab: [facility] [address] [address] Performing Lab: [facility] [address] [address] [facility] [place] [facility] CBC HEMATOCRIT [VOLUME FRACTION] OF BLOOD BY AUTOMATED COUNT 42.2 36.6 - 45.6 04/21 Specimen Type: BLOOD No comment entered. Ordering Provider: PUNEET ESCALANTE SA Report Released Date/Time: April 17, 2024 01:15 PM Reporting Lab: [facility] [place] [address] [address] Performing Lab: [facility] [place] [address] [address] [facility] [place] [facility] CBC MCV [ENTITIC VOLUME] BY AUTOMATED COUNT 91.7 fL 82 - 99 04/21 Specimen Type: BLOOD No comment entered. Ordering Provider: PUNEET ESCALANTE SA Report Released Date/Time: April 17, 2024 01:15 PM Reporting Lab: [facility] [place] [facility] [address] [address] Performing Lab: [facility] [place] [facility] [address] [address] [facility] [place] [facility] CBC MCHC [MASS/VOLU ME] BY AUTOMATED COUNT 32.9 g/dL 30.8 - 35.1 04/21 Specimen Type: BLOOD No comment entered. Ordering Provider: PUNEET ESCALANTE SA Report Released Date/Time: April 17, 2024 01:15 PM Reporting Lab: [facility] [place] [facility] [address] [address] Performing Lab: [facility] [place] [facility] [address] [phone] [facility] CBC PLATELETS [#/VOLUME] IN BLOOD BY AUTOMATED COUNT 244 10*3/uL 140 - 360 04/21 Specimen Type: BLOOD No comment entered. Ordering Provider: PUNEET ESCALANTE SA Report Released Date/Time: April 17, 2024 01:15 PM Reporting Lab: [facility] [place] [facility] [address] [phone] Performing Lab: [facility] [place] [facility] [address] [address] [facility] CBC ERYTHROCYT E DISTRIBUTI ON WIDTH [RATIO] BY AUTOMATED COUNT 12.4 12.0 - 16.0 04/21 Specimen Type: BLOOD No comment entered. Ordering Provider: PUNEET ESCALANTE SA Report Released Date/Time: April 17, 2024 01:15 PM Reporting Lab: [place] [facility] [facility] [address] [address] Performing Lab: [place] [facility] [facility] [address] [address] [place] [facility] [facility] CBC MCH [ENTITIC MASS] BY AUTOMATED COUNT 30.2 pg 26.2 - 32.6 04/21 Specimen Type: BLOOD No comment entered. Ordering Provider: PUNEET ESCALANTE SA Report Released Date/Time: April 17, 2024 01:15 PM Reporting Lab: [place] [facility] [facility] [address] [address] Performing Lab: [place] [facility] [facility] [address] [address] [place] [facility] [facility] [place] BASIC METABOLI C PANEL (non-fas ting) UREA NITROGEN [MASS/VOLU ME] IN SERUM OR PLASMA 15 mg/dL 7 - 25 04/21 Specimen Type: SERUM No comment entered. Ordering Provider: PUNEET ESCALANTE SA Report Released Date/Time: April 17, 2024 01:15 PM Reporting Lab: [place] [facility] [facility] [address] [address] Performing Lab: [place] [facility] [facility] [address] [address] [place] [facility] BASIC METABOLI C PANEL (non-fas ting) GLUCOSE [MASS/VOLU ME] IN SERUM OR PLASMA 140 mg/dL 65 - 100 04/21 H Specimen Type: SERUM No comment entered. Ordering Provider: PUNEET ESCALANTE SA Report Released Date/Time: April 17, 2024 01:15 PM Reporting Lab: [place] [facility] [facility] [address] [address] Performing Lab: [place] [facility] [facility] [address] [address] [place] [facility] [facility] BASIC METABOLI C PANEL (non-fas ting) SODIUM [MOLES/VOL UME] IN SERUM OR PLASMA 135 mmol/L 135 - 145 06/04 /2024 Specimen Type: SERUM No comment entered. Ordering Provider: PUNEET ESCALANTE SA Report Released Date/Time: April 17, 2024 01:15 PM Reporting Lab: [place] [facility] [facility] [address] [address] Performing Lab: [place] [facility] [facility] [address] [address] [facility] [place] BASIC METABOLI C PANEL (non-fas ting) POTASSIUM [MOLES/VOL UME] IN SERUM OR PLASMA 3.9 mmol/L 3.5 - 5.0 04/21 Specimen Type: SERUM No comment entered. Ordering Provider: PUNEET ESCALANTE SA Report Released Date/Time: April 17, 2024 01:15 PM Reporting Lab: [place] [facility] [facility] [facility] [address] [address] Performing Lab: [place] [facility] [facility] [address] [address] [facility] [place] BASIC METABOLI C PANEL (non-fas ting) CHLORIDE [MOLES/VOL UME] IN SERUM OR PLASMA 100 mmol/L 100 - 110 04/21 Specimen Type: SERUM No comment entered. Ordering Provider: PUNEET ESCALANTE SA Report Released Date/Time: April 17, 2024 01:15 PM Reporting Lab: [facility] [address] [address] Performing Lab: [place] [facility] [facility] [facility] [address] [address] [facility] TRN [facility] [place] BASIC METABOLI C PANEL (non-fas ting) CARBON DIOXIDE, TOTAL [MOLES/VOL UME] IN SERUM OR PLASMA 26 meq/L 20 - 30 04/21 Specimen Type: SERUM No comment entered. Ordering Provider: PUNEET ESCALANTE SA Report Released Date/Time: April 17, 2024 01:15 PM Reporting Lab: [facility] [address] [address] Performing Lab: [place] [address] [address] [facility] BASIC METABOLI C PANEL (non-fas ting) CREATININE [MASS/VOLU ME] IN SERUM OR PLASMA 0.69 mg/dL 0.50 - 1.40 04/21 Specimen Type: SERUM No comment entered. Ordering Provider: PUNEET ESCALANTE SA Report Released Date/Time: April 17, 2024 01:15 PM Reporting Lab: [address] [address] Performing Lab: [address] [address] [facility] BASIC METABOLI C PANEL (non-fas ting) GLOMERULAR FILTRATION RATE/1.73 SQ M.PREDICTE D [VOLUME RATE/AREA] IN SERUM, PLASMA OR BLOOD BY CREATININE -BASED FORMULA (CKD-EPI 2020) >90mL/mi n 60 04/21 Specimen Type: SERUM No comment entered. Ordering Provider: PUNEET ESCALANTE SA Report Released Date/Time: April 17, 2024 01:15 PM Reporting Lab: [address] [address] Performing Lab: [address] [address] [facility] LYME SEROLOGY PANEL BORRELIA BURGDORFER I AB.IGG AND IGM WITH REFLEX TO IMMUNOASSA Y PANEL - SERUM OR PLASMA Negative 12/09 Specimen Type: SERUM Comment: The LYME SEROLOGY PANEL was performed using the FDA-approve d Tomas NEGRO Borrelia burdorferi modified two-tier test system. This modified methodology uses a second EIA in place of a western immunoblot assay, which the FDA has determined is substantia lly equivalent to or better than standard two-tier testing using western blot. Supplementa l testing with a second EIA meets CDC guidelines for Lyme disease testing. Performance characteris tics of the panel were validated at the [facility]. Results are considered positive only if the initial screening EIA is positive or equivocal, and either or both supplementa l EIAs (for IgM and IgG) are positive. Diagnosis of Lyme disease should not be based solely on laboratory results. Clinical and exposure history must be considered. Positive antibody results reflect prior immunologic exposure, and do not necessarily indicate active infection. False positive results are possible in patients with other spirochetal infections, infectious mononucleos is, and connective tissue disorders. Negative results do not exclude B. burgdorferi infection. Only 10-40% of patients with erythema migrans alone have detectable antibodies. False negative results are possible, if specimens are drawn too soon after infection before an antibody response. Antibody induction may be aborted by early antibiotic therapy. Results in immunosuppr essed individuals should be interpreted with caution. If Lyme disease is strongly suspected, but antibody was not detected, a second specimen collected about 2-4 weeks after the first should be tested. This test is NOT for use in screening individuals without signs, symptoms or exposure history. Physicians should report all cases of Lyme disease to their state and local health departments , if applicable. Ordering Provider: PUNEET ESCALANTE SA Report Released Date/Time: Dec 09, 2023 01:48 PM Reporting Lab: [facility] [employer] [facility] [address] [address] Performing Lab: [facility] [employer] [facility] [address] [address] [facility] LYME SEROLOGY PANEL BORRELIA BURGDORFER I AB [INTERPRET ATION] IN SERUM BY IA.MTTT Negative 12/09 Specimen Type: SERUM Comment: The LYME SEROLOGY PANEL was performed using the FDA-approve d Tomas NEGRO Borrelia burdorferi modified two-tier test system. This modified methodology uses a second EIA in place of a western immunoblot assay, which the FDA has determined is substantia lly equivalent to or better than standard two-tier testing using western blot. Supplementa l testing with a second EIA meets CDC guidelines for Lyme disease testing. Performance characteris tics of the panel were validated at the [facility]. Results are considered positive only if the initial screening EIA is positive or equivocal, and either or both supplementa l EIAs (for IgM and IgG) are positive. Diagnosis of Lyme disease should not be based solely on laboratory results. Clinical and exposure history must be considered. Positive antibody results reflect prior immunologic exposure, and do not necessarily indicate active infection. False positive results are possible in patients with other spirochetal infections, infectious mononucleos is, and connective tissue disorders. Negative results do not exclude B. burgdorferi infection. Only 10-40% of patients with erythema migrans alone have detectable antibodies. False negative results are possible, if specimens are drawn too soon after infection before an antibody response. Antibody induction may be aborted by early antibiotic therapy. Results in immunosuppr essed individuals should be interpreted with caution. If Lyme disease is strongly suspected, but antibody was not detected, a second specimen collected about 2-4 weeks after the first should be tested. This test is NOT for use in screening individuals without signs, symptoms or exposure history. Physicians should report all cases of Lyme disease to their state and local health departments , if applicable. Ordering Provider: PUNETE ESCALANTE SA Report Released Date/Time: Dec 09, 2023 01:48 PM Reporting Lab: [facility] [employer] [facility] [address] [address] Performing Lab: [facility] [employer] [facility] [facility] [address] [address] [facility] ANAPLASM A AND EHRLICHI A AB PANEL EHRLICHIA CHAFFEENSI S IGG AB [PRESENCE] IN SERUM <1:64 12/09 Specimen Type: SERUM Comment: REFERENCE RANGE: <1:64 REFERENCE RANGE: <1:20 Antibody Not Detected Ehrlichia chaffeenis has been identified as the causative agent of Human Monocytic Ehrlichiosi s (HME). Infected individuals produce specific antibodies to E. chaffeensis that can be detected by an immuno- fluorescent antibody (IFA) test. Single IgG IFA titers of 1:64 or greater indicate exposure to E. chaffeensis . A four-fold rise in IgG titers between acute and convalescen t samples and/or the presence of IgM antibody against E. chaffeensis suggest recent or current infection. This test was developed and its analytical performance characteris tics have been determined by [employer], [place], [place]. It has not been cleared or approved by the U.S. Food and Drug Administrat ion. This assay has been validated pursuant to the CLIA regulations and is used for clinical purposes. REFERENCE RANGE: <1:64 REFERENCE RANGE: <1:20 Antibody Not Detected Anaplasma phagocytoph ilum is the tick-borne agent causing Human Granulocyti c Ehrlichiosi s (HGE). HGE is distinct and separate from Human Monocytic Ehrlichiosi s (HME), caused by Ehrlichia chaffeensis . Serologic crossreacti vity between A. phagocyto- philum and E. chaffeensis is minimal (5-15%). This test was developed and its analytical performance characteris tics have been determined by [employer] [place], [place]. It has not been cleared or approved by the U.S. Food and Drug Administrat ion. This assay has been validated pursuant to the CLIA regulations and is used for clinical purposes. Test Performed by [facility], [facility], [address] [place], [place] Chris Bone M.D., Ph.D., Director of Laboratorie s , CLIA [id number] TEST PERFORMED AT: , Ordering Provider: PUNEET ESCALANTE SA Report Released Date/Time: Dec 09, 2023 01:48 PM Reporting Lab: [facility] [address] [address] Performing Lab: [facility] [address] [address] [facility] ANAPLASM A AND EHRLICHI A AB PANEL EHRLICHIA CHAFFEENSI S IGM AB [PRESENCE] IN SERUM <1:20 12/09 Specimen Type: SERUM Comment: REFERENCE RANGE: <1:64 REFERENCE RANGE: <1:20 Antibody Not Detected Ehrlichia chaffeenis has been identified as the causative agent of Human Monocytic Ehrlichiosi s (HME). Infected individuals produce specific antibodies to E. chaffeensis that can be detected by an immuno- fluorescent antibody (IFA) test. Single IgG IFA titers of 1:64 or greater indicate exposure to E. chaffeensis . A four-fold rise in IgG titers between acute and convalescen t samples and/or the presence of IgM antibody against E. chaffeensis suggest recent or current infection. This test was developed and its analytical performance characteris tics have been determined by [facility] [place], [place]. It has not been cleared or approved by the U.S. Food and Drug Administrat ion. This assay has been validated pursuant to the CLIA regulations and is used for clinical purposes. REFERENCE RANGE: <1:64 REFERENCE RANGE: <1:20 Antibody Not Detected Anaplasma phagocytoph ilum is the tick-borne agent causing Human Granulocyti c Ehrlichiosi s (HGE). HGE is distinct and separate from Human Monocytic Ehrlichiosi s (HME), caused by Ehrlichia chaffeensis . Serologic crossreacti vity between A. phagocyto- philum and E. chaffeensis is minimal (5-15%). This test was developed and its analytical performance characteris tics have been determined by [employer] [place], [place]. It has not been cleared or approved by the U.S. Food and Drug Administrat ion. This assay has been validated pursuant to the CLIA regulations and is used for clinical purposes. Test Performed by [facility], [facility], [address] [place] [address] Chris Bone M.D., Ph.D., Director of Laboratorie s , CLIA [id number] TEST PERFORMED AT: , Ordering Provider: PUNEET ESCALANTE SA Report Released Date/Time: Dec 09, 2023 01:48 PM Reporting Lab: [facility] [address] [address] Performing Lab: [facility] [address] [address] [facility] ANAPLASM A AND EHRLICHI A AB PANEL ANAPLASMA PHAGOCYTOP HILUM IGG AB [TITER] IN SERUM BY IMMUNOFLUO RESCENCE <1:64 12/09 Specimen Type: SERUM Comment: REFERENCE RANGE: <1:64 REFERENCE RANGE: <1:20 Antibody Not Detected Ehrlichia chaffeenis has been identified as the causative agent of Human Monocytic Ehrlichiosi s (HME). Infected individuals produce specific antibodies to E. chaffeensis that can be detected by an immuno- fluorescent antibody (IFA) test. Single IgG IFA titers of 1:64 or greater indicate exposure to E. chaffeensis . A four-fold rise in IgG titers between acute and convalescen t samples and/or the presence of IgM antibody against E. chaffeensis suggest recent or current infection. This test was developed and its analytical performance characteris tics have been determined by [facility], [place]. It has not been cleared or approved by the U.S. Food and Drug Administrat ion. This assay has been validated pursuant to the CLIA regulations and is used for clinical purposes. REFERENCE RANGE: <1:64 REFERENCE RANGE: <1:20 Antibody Not Detected Anaplasma phagocytoph ilum is the tick-borne agent causing Human Granulocyti c Ehrlichiosi s (HGE). HGE is distinct and separate from Human Monocytic Ehrlichiosi s (HME), caused by Ehrlichia chaffeensis . Serologic crossreacti vity between A. phagocyto- philum and E. chaffeensis is minimal (5-15%). This test was developed and its analytical performance characteris tics have been determined by [facility] [place], [place]. It has not been cleared or approved by the U.S. Food and Drug Administrat ion. This assay has been validated pursuant to the CLIA regulations and is used for clinical purposes. Test Performed by [facility], [facility], [address] [place] [address] Chris Bone M.D., Ph.D., Director of Laboratorie s , CLIA [id number] TEST PERFORMED AT: , Ordering Provider: PUNEET ESCALANTE SA Report Released Date/Time: Dec 09, 2023 01:48 PM Reporting Lab: [facility] [address] [address] Performing Lab: [facility] [address] [address] [facility] ANAPLASM A AND EHRLICHI A AB PANEL ANAPLASMA PHAGOCYTOP HILUM IGM AB [TITER] IN SERUM BY IMMUNOFLUO RESCENCE <1:20 12/09 Specimen Type: SERUM Comment: REFERENCE RANGE: <1:64 REFERENCE RANGE: <1:20 Antibody Not Detected Ehrlichia chaffeenis has been identified as the causative agent of Human Monocytic Ehrlichiosi s (HME). Infected individuals produce specific antibodies to E. chaffeensis that can be detected by an immuno- fluorescent antibody (IFA) test. Single IgG IFA titers of 1:64 or greater indicate exposure to E. chaffeensis . A four-fold rise in IgG titers between acute and convalescen t samples and/or the presence of IgM antibody against E. chaffeensis suggest recent or current infection. This test was developed and its analytical performance characteris tics have been determined by [facility] [place]. It has not been cleared or approved by the U.S. Food and Drug Administrat ion. This assay has been validated pursuant to the CLIA regulations and is used for clinical purposes. REFERENCE RANGE: <1:64 REFERENCE RANGE: <1:20 Antibody Not Detected Anaplasma phagocytoph ilum is the tick-borne agent causing Human Granulocyti c Ehrlichiosi s (HGE). HGE is distinct and separate from Human Monocytic Ehrlichiosi s (HME), caused by Ehrlichia chaffeensis . Serologic crossreacti vity between A. phagocyto- philum and E. chaffeensis is minimal (5-15%). This test was developed and its analytical performance characteris tics have been determined by [employer] [place], [place]. It has not been cleared or approved by the U.S. Food and Drug Administrat ion. This assay has been validated pursuant to the CLIA regulations and is used for clinical purposes. Test Performed by [employer] [place], [employer] [facility] [place], [address] [place] [address] Chirs Bone M.D., Ph.D., Director of Laboratorie s , CLIA [id number] TEST PERFORMED AT: , Ordering Provider: PUNEET ESCALANTE SA Report Released Date/Time: Dec 09, 2023 01:48 PM Reporting Lab: [place] [address] [address] Performing Lab: [facility] [address] [facility], [address] [place] [address] [facility] ANAPLASM A AND EHRLICHI A AB PANEL EHRLICHIA CHAFFEENSI S AB INTER SEE NOTE 12/09 Specimen Type: SERUM Comment: REFERENCE RANGE: <1:64 REFERENCE RANGE: <1:20 Antibody Not Detected Ehrlichia chaffeenis has been identified as the causative agent of Human Monocytic Ehrlichiosi s (HME). Infected individuals produce specific antibodies to E. chaffeensis that can be detected by an immuno- fluorescent antibody (IFA) test. Single IgG IFA titers of 1:64 or greater indicate exposure to E. chaffeensis . A four-fold rise in IgG titers between acute and convalescen t samples and/or the presence of IgM antibody against E. chaffeensis suggest recent or current infection. This test was developed and its analytical performance characteris tics have been determined by [facility] [place]. It has not been cleared or approved by the U.S. Food and Drug Administrat ion. This assay has been validated pursuant to the CLIA regulations and is used for clinical purposes. REFERENCE RANGE: <1:64 REFERENCE RANGE: <1:20 Antibody Not Detected Anaplasma phagocytoph ilum is the tick-borne agent causing Human Granulocyti c Ehrlichiosi s (HGE). HGE is distinct and separate from Human Monocytic Ehrlichiosi s (HME), caused by Ehrlichia chaffeensis . Serologic crossreacti vity between A. phagocyto- philum and E. chaffeensis is minimal (5-15%). This test was developed and its analytical performance characteris tics have been determined by [employer] [place]. It has not been cleared or approved by the U.S. Food and Drug Administrat ion. This assay has been validated pursuant to the CLIA regulations and is used for clinical purposes. Test Performed by [facility], [employer] [place], [address] [place] [address] Chris Bone M.D., Ph.D., Director of Laboratorie s , CLIA [id number] TEST PERFORMED AT: , Ordering Provider: PUNEET ESCALANTE SA Report Released Date/Time: Dec 09, 2023 01:48 PM Reporting Lab: [facility] [address] [address] Performing Lab: [facility] [place] [address] [address] [facility] ANAPLASM A AND EHRLICHI A AB PANEL A. phagocytop hilum inter SEE NOTE 12/09 Specimen Type: SERUM Comment: REFERENCE RANGE: <1:64 REFERENCE RANGE: <1:20 Antibody Not Detected Ehrlichia chaffeenis has been identified as the causative agent of Human Monocytic Ehrlichiosi s (HME). Infected individuals produce specific antibodies to E. chaffeensis that can be detected by an immuno- fluorescent antibody (IFA) test. Single IgG IFA titers of 1:64 or greater indicate exposure to E. chaffeensis . A four-fold rise in IgG titers between acute and convalescen t samples and/or the presence of IgM antibody against E. chaffeensis suggest recent or current infection. This test was developed and its analytical performance characteris tics have been determined by [employer], [place], [place]. It has not been cleared or approved by the U.S. Food and Drug Administrat ion. This assay has been validated pursuant to the CLIA regulations and is used for clinical purposes. REFERENCE RANGE: <1:64 REFERENCE RANGE: <1:20 Antibody Not Detected Anaplasma phagocytoph ilum is the tick-borne agent causing Human Granulocyti c Ehrlichiosi s (HGE). HGE is distinct and separate from Human Monocytic Ehrlichiosi s (HME), caused by Ehrlichia chaffeensis . Serologic crossreacti vity between A. phagocyto- philum and E. chaffeensis is minimal (5-15%). This test was developed and its analytical performance characteris tics have been determined by [employer]. It has not been cleared or approved by the U.S. Food and Drug Administrat ion. This assay has been validated pursuant to the CLIA regulations and is used for clinical purposes. Test Performed by [facility], [facility], [address] [place], [place] Chris Bone M.D., Ph.D., Director of Laboratorie s , CLIA [id number] TEST PERFORMED AT: , Ordering Provider: PUNEET ESCALANTE SA Report Released Date/Time: Dec 09, 2023 01:48 PM Reporting Lab: [facility] [place] [address] [address] Performing Lab: [facility] [place] [address] [facility] [place] VITAMIN B12 COBALAMIN (VITAMIN B12) [MASS/VOLU ME] IN SERUM OR PLASMA >2000pg/ mL 200 - 900 12/09 H Specimen Type: SERUM No comment entered. Ordering Provider: PUNEET ESCALANTE SA Report Released Date/Time: Dec 09, 2023 01:48 PM Reporting Lab: [facility] [place] [address] [address] Performing Lab: [facility] [place] [address] [address] [facility] VITAMIN D (25-OH) 25-HYDROXY VITAMIN D3 [MASS/VOLU ME] IN SERUM OR PLASMA 52 ng/mL 20 - 50 12/09 H Specimen Type: SERUM No comment entered. Ordering Provider: PUNEET ESCALANTE SA Report Released Date/Time: Dec 09, 2023 01:48 PM Reporting Lab: [facility] [place] [address] [address] Performing Lab: [facility] [place] [address] [address] [facility] HEMOGLOB IN A1C PANEL HEMOGLOBIN A1C/HEMOGL OBIN.TOTAL IN BLOOD BY HPLC 9.0 4.0 - 5.6 12/09 H Specimen Type: BLOOD Comment: Values obtained from A1C measurement s can vary. For atypical A1C assays, a reported value of 7.0 could actually be between 6.72 and 7.28 if measured by a reference method. A reported value of 9.0 could actually be between 8.73 and 9.27. Ref: http://www. ngsp.org/[place] Pdata.asp Ordering Provider: PUNEET ESCALANTE SA Report Released Date/Time: Dec 09, 2023 01:48 PM Reporting Lab: [facility] [address] [address] Performing Lab: [facility] [address] [address] [facility] Vital Signs Combined list of inpatient and outpatient Vital Signs from Department of Defense and Veterans Affairs, ranging from 12 months to all on record, depending upon the facility. Vital Sign Value Date Comments Source SYSTOLIC BLOOD PRESSURE 117 09/14/20 14:16:41 [facility] DIASTOLIC BLOOD PRESSURE 76 024 14:16:41 [facility] PULSE OXIMETRY 96 09/14/2024 14:16:41 [facility] WEIGHT 164.7 09/14/2024 14:16:41 [facility] BMI 31 kg/m2 09/14/2024 14:16:41 [facility] PAIN 0 09/14/2024 14:16:41 [facility] TEMPERATURE 98.1 09/14/2024 14:16:41 [facility] PULSE 81 09/14/2024 14:16:41 [facility] RESPIRATION 14 09/14/2024 14:16:41 [facility] SYSTOLIC BLOOD PRESSURE 121 03/18/20 24 14:38:41 [facility] DIASTOLIC BLOOD PRESSURE 81 024 14:38:41 [facility] PULSE OXIMETRY 94 03/18/2024 14:38:41 [facility] WEIGHT 163.5 03/18/2024 14:38:41 [facility] BMI 31 kg/m2 03/18/2024 14:38:41 [facility] PAIN 0 03/18/2024 14:38:41 [facility] TEMPERATURE 98.6 03/18/2024 14:38:41 [facility] PULSE 80 03/18/2024 14:38:41 [facility] RESPIRATION 14 03/18/2024 14:38:41 [facility] WEIGHT 165 02/14/2024 14:56:05 [facility] BMI 31 kg/m2 02/14/2024 14:56:05 [facility] Encounters Combined list of: 1) Encounters from Department of Veterans Affairs facilities going backup to the last 18 months, not all VA inpatient encounters are included; 2) Encounters from the Department of [place] facilities going backup to 280 months. Location Location Details Encounter Type Encounter Number Reason For Visit Attending Provider ADM Date DC Date Status Disposition Source [facility] Out[facility] Encounter [id number] 08/09 [facility] [place] OFF[place] O/P EST MOD 30-39 MIN [id number] Diagnos is: ICD-10- CM F41.1 General ized anxiety disorde r ST MARTI ZHANG G 08/14 [place] [facility] [place] [id number] Diagnos is: ICD-10- CM E11.9 Type 2 diabete s mellitu s without complic ations DEISY ALCANTAR 08/15 [facility] Outpatient Encounter [id number] 08/22 [facility] Outpatient Encounter [id number] 08/23 [facility] OFF[facility] O/P EST LOW 20-29 MIN [id number] Diagnos is: ICD-10- CM E11.9 Type 2 diabete s mellitu s without complic ations RAFFY COOLEY 08/23 [facility] Outpatient Encounter [id number] 08/27 [facility] [facility] Out[facility] Encounter [id number] 09/03 [facility] Outpatient Encounter [id number] 09/04 [facility] [facility] Out[facility] Encounter [id number] 09/05 [facility] Out[facility] Encounter [id number] 09/06 [facility] Out[facility] Encounter [id number] 09/24 [facility] [place] Outpatient En[place] [id number] 10/29 [place] [facility] Outpatient Encounter [id number] 11/26 [place] [place] [facility] Out[facility] Encounter [id number] 12/09 [facility] OFFICE O/P EST MOD 30 MIN [id number] Diagnos is: ICD-10- CM Z12.11 Encount er for screeni ng for maligna nt neoplas m of colon AVA,L VICTOR M RADHA 12/09 [facility] Out[facility] Encounter [id number] 12/10 [facility] Out[facility] Encounter [id number] 12/12 [facility] Out[facility] Encounter [id number] 12/16 [facility] OFFICE O/P EST MOD 30 MIN [id number] Diagnos is: ICD-10- CM F41.1 General ized anxiety disorde r ST MARTI ZHANG G 12/24 [place] [facility] MTMS BY PHARM ADDL 15 MIN [id number] Diagnos is: ICD-10- CM E11.9 Type 2 diabete s mellitu s without complic ations LIUDMILA MARTINEZ A 12/30 [facility] Out[facility] Encounter [id number] 01/12 [facility] MTMS BY PHARM ADDL 15 MIN [id number] Diagnos is: ICD-10- CM E11.9 Type 2 diabete s mellitu s without complic ations GDLIUDMILA MCGRATH A 01/30 [facility] MTMS BY PHARM EST 15 MIN [id number] Diagnos is: ICD-10- CM E11.9 Type 2 diabete s mellitu s without complic ations MICHELLELIUDMILA A 02/02 [facility] QNHP OL DIG ASSMT&MGMT 5-10 [id number] Diagnos is: ICD-10- CM E11.9 Type 2 diabete s mellitu s without complic ations POPEYE BENSON 02/02 [facility] INTRM OPH EXAM EST PATIENT [id number] Diagnos is: ICD-10- CM E11.9 Type 2 diabete s mellitu s without complic ations DEISY ALCANTAR 02/03 [facility] MTMS BY PHARM ADDL 15 MIN [id number] Diagnos is: ICD-10- CM E11.9 Type 2 diabete s mellitu s without complic ations GDRAMILA,LIUDMILA A 02/13 [facility] Out[facility] Encounter [id number] 02/16 [facility] Outpatient Encounter [id number] 02/23 [facility] [place] O/P EST MOD 30 MIN [id number] Diagnos is: ICD-10- CM F33.8 Other recurre nt depress alli disorde rs ST MARTI ZHANG G 03/03 [place] [facility] MTMS BY PHARM EST 15 MIN [id number] Diagnos is: ICD-10- CM E11.9 Type 2 diabete s mellitu s without complic ations GDULA,LIUDMILA A 03/05 [facility] OFFICE O/P EST MOD 30 MIN [id number] Diagnos is: ICD-10- CM E11.9 Type 2 diabete s mellitu s without complic ations Fady ESCALANTE 03/18 [facility] Out[facility] Encounter [id number] 03/31 [facility] Out[facility] Encounter [id number] 04/05 [facility] MTMS BY PHARM EST 15 MIN [id number] Diagnos is: ICD-10- CM E11.9 Type 2 diabete s mellitu s without complic ations GDULA,LIUDMILA A 04/07 [facility] Out[facility] Encounter [id number] 04/15 [facility] Out[facility] Encounter [id number] 04/15 [facility] MTMS BY PHARM EST 15 MIN [id number] Diagnos is: ICD-10- CM E11.9 Type 2 diabete s mellitu s without complic ations GDULA,LIUDMILA A 04/15 [facility] [place] UNLISTED SPEC DERM SVC/PX [id number] Diagnos is: ICD-10- CM Z13.89 Encount er for screeni ng for other disorde r NIKITAO MODESTA 04/16 [place] YASMINE Bryson [facility] Outpatient Encounter [id number] Diagnos is: ICD-10- CM R21 Rash and other nonspec ific skin eruptio n SAAD MICHAEL PH J 04/17 [facility] Out[facility] Encounter [id number] 04/17 [facility] Out[facility] Encounter [id number] 04/17 [facility] Out[facility] Encounter [id number] 04/17 [facility] HC PRO PHONE CALL 5-10 MIN [id number] Diagnos is: ICD-10- CM 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 PAUL Schmidt 04/17 [facility] OFF/OP EST MAY X REQ PHY/QHP [id number] Diagnos is: ICD-10- CM H26.8 Other specifi ed catarac PAUL Guzmán 04/21 [facility] ELECTROCAR DIOGRAM REPORT [id number] Diagnos is: ICD-10- CM Z13.6 Encount er for screeni ng for cardiov ascular disorde rs YASMIN PAUL 04/21 [facility] Outpatient Encounter [id number] 04/23 [facility] Out[facility] Encounter [id number] 04/27 [facility] Out[facility] Encounter [id number] 04/27 [facility] [place] OFF[place] O/P EST MOD 30 MIN [id number] Diagnos is: ICD-10- CM F41.1 General ized anxiety disorde r ST MARTI ZHANG G 04/28 [place] [facility] MTMD BY PHARM EST 15 MIN [id number] Diagnos is: ICD-10- CM E11.9 Type 2 diabete s mellitu s without complic ations GDULA,LIUDMILA A 05/05 [facility] [place] O/P EST MOD 30 MIN [id number] Diagnos is: ICD-10- CM F41.1 General ized anxiety disorde r ST MARTI ZHANG G 06/02 [place] [facility] MTMS BY PHARM EST 15 MIN [id number] Diagnos is: ICD-10- CM E11.9 Type 2 diabete s mellitu s without complic ations GDULA,LIUDMILA A 06/04 [facility] Outpatient Encounter [id number] 06/05 [facility] OFFICE O/P EST MOD 30 MIN [id number] Diagnos is: ICD-10- CM F33.8 Other recurre nt depress alli disorde rs ST MARTI ZHANG G 07/08 [place] [facility] Outpatient Encounter [id number] 07/10 [facility] Outpatient Encounter [id number] 07/15 [facility] [place] Outpatient Encounter [id number] 08/19 [facility] [place] Outpatient Encounter [id number] 08/20 [facility] [place] O/P EST MOD 30 MIN [id number] Diagnos is: ICD-10- CM F33.8 Other recurre nt depress alli disorde rs ST LEATHA EPHMILDRED G 09/04 [place] [facility] Outpatient Encounter [id number] 09/07 [place] [facility] Outpatient Encounter [id number] 09/11 [facility] [place] Outpatient Encounter [id number] 1.09/14 [facility] [place] Outpatient Encounter [id number] 1.09/14 [facility] [place] [facility] OFFICE O/P EST LOW 20 MIN [id number] Diagnos is: ICD-10- CM Z23 Encount er for immuniz ation AVA,L VICTOR M RADHA 09/14 [facility] [place] [place] Outpatient Encounter [id number] [facility] [place] INTRM OPH EXAM EST PATIENT [id number] Diagnos is: ICD-10- CM Z96.1 Presenc e of intraoc ular lens ORTIZ,IL JEREMI 09/15 [facility] Outpatient Encounter [id number] 09/16 [facility] Out[facility] Encounter [id number] 1.09/24 [facility] Out[facility] Encounter [id number] 11/12 [facility] Outpatient Encounter [id number] 11/12 [facility] Outpatient Encounter [id number] [facility] Out[facility] Encounter [id number] [facility] Out[facility] Encounter [id number] 12/14 [facility] Outpatient Encounter [id number] 12/14 [facility] PH1 ASSMT&MGMT NQHP 21-30 [id number] Diagnos is: ICD-10- CM 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 Outpatient Encounter [id number] 12/31 [facility] [place] [facility] [place] PH1 ASSMT&MGMT NQHP 5-10 [id number] Diagnos is: ICD-10- CM Z71.9 Compound Coating Machine Offbearer ing, unspeci DONI López 12/31 [facility] [place] [facility] Social History Combined list of available smoking, tobacco, and other social history from Department of Defense and Veterans Affairs facilities. Social History Type Response Date Comment Sour e Tobacco smoking status AZIS OK-TOBACCO NEVER USED 12/09/2023 [facility] [place] [facility]2023 [facility] [place] [facility] 01/24/2022 [facility] History of tobacco use OK-TOBACCO NEVER USED 02/20/2021 [facility] [place] [facility] History of tobacco use OK-TOBACCO NEVER USED 02/18/2020 [facility] [place] [facility] History of tobacco use OK-TOBACCO FORMER USER 12/02/2018 [facility] [place] [facility] History of tobacco use QUIT TOBACCO USE > 7 YEARS AGO 02/28/2018 [facility] [place] [facility] History of tobacco use LIFETIME NON-TOBACCO USER 11/23/2016 [facility] [place] [facility] History of tobacco use LIFETIME NON-TOBACCO USER 11/29/2015 [facility] History of tobacco use LIFETIME NON-SMOKER 04/10/2005 [facility] [place] [facility] Plan of Care List of future care activities from Department of Veterans Affairs facilities. Additional future care activities may be listed in the Assessment and Plan section. Date/Time Care Activity Care Activity Detail Facili ty 06/29/2025 AMBULATORY - MEDICINE AMBULATORY - MEDICI NE [facility] 02/12/2025 Laboratory - Fast Food Supervisor ry Order LIPID PANEL FASTING BLOOD (SST-SERUM) [facility] [place] [facility] 02/12/2025 Laboratory - Fast Food Supervisor ry Order BASIC METABOLIC PANEL (non-fasting) BLOOD (SST-SERUM) [facility] 02/12/2025 Laboratory - Fast Food Supervisor ry Order HEMOGLOBIN A1C PANEL BLOOD (LAV-BLOOD) [facility] 02/12/2025 Laboratory - Fast Food Supervisor ry Order MICROALBUMIN CREATININE RATIO PANEL URINE (RANDOM) [facility] Advance Directives List of completed, amended, or rescinded Advance Directives on record at Department of [facility] facilities. An actual copy of the Directive is not included. Date Advance Directive Provider Source 09/08/2009 ADVANCE DIRECTIVE CHOLO CONRAD [facility]
--- OUTSIDE RECORDS SUMMARY | 2024-12-31 15:32 | XMS_ITS | Encounter Summary ---
Author Name [facility] [place] Organization [facility] ([place]) Address [address] [place] [id number] Care Team Providers Care Abstract Searcher Name Role Phone YAHAIRA ESCALANTE Primary Care [...] Bueno's Name Patient's Relationship to Policy Bueno [facility] Feb 28, 2004 Jul 01, 2026 [facility] [id number] ЕЛЕНА JORDAN PATIENT W/OME DICAR E Feb 28, 2004 Jul 01, 2026 [facility] [id number] [phone] CHANDANCASTRO ЕЛЕНА PATIENT [facility] Feb 28, 2004 Jul 01, 2026 [id number] KIKO JORDAN JR SPOUSE [facility] Feb 28, 2004 Jul 01, 2026 [id number] [phone] ЕЛЕНА JORDAN PATIENT [facility] Feb 28, 2004 Jul 01, 2026 [id number] [phone] ЕЛЕНА JORDAN PATIENT [facility] Feb 28, 2004 Jul 01, 2026 [facility] [id number] ЕЛЕНА JORDAN PATIENT [facility] Jun 18, 2015 Jul 01, 2026 [facility] [id number] SUMMER JORDANTA PATIENT [facility] Jan 19, 2013 Jul 01, 2026 [facility] [id number] SUMMER JORDANTA PATIENT [facility] Sep 22, 2012 Jul 01, 2026 [facility] [id number] SUMMER JORDANTA PATIENT [facility] Sep 22, 2012 Jul 01, 2026 [facility] [id number] KIKO JORDAN JR SPOUSE [facility] Sep 22, 2012 Jul 01, 2026 [facility] [id number] ЕЛЕНА JORDAN PATIENT [facility] Feb 28, 2004 Jul 01, 2026 [facility] [id number] ЕЛЕНА JORDAN PATIENT [facility]SANDRA MARAN [facility] Jun 18, 2015 [facility] [id number] [phone] ЕЛЕНА JORDAN PATIENT Selected Encounter This section includes the information on record at [place] for the Encounter. Date/Time Encounter Type Encounter Description Reason Provider Source Jun 02, 2024 02:30 PM OFFICE O/P EST MOD 30 [facility] - IND ICD-10-CM F41.1 Generalized anxiety disorder KENDALL ZHANG Ana Encounter Template Text not used by [place] Assessments - Encounter Diagnoses This section includes the primary and secondary diagnoses documented for the Encounter. Date/Time Primary/Secondary Diagnosis Diagnosis Name Provider Source Jun 02, 2024 08:35 PM PRIMARY Generalized anxiety disorder AZAEL ZHANG Jun 02, 2024 08:35 PM SECONDARY Other recurrent depressive disorders AZAEL ZHANG Plan of Treatment: Future Appointments (+ 6 months) and Future Tests (+/- 45 days) The Plan of Treatment section includes future care activities for the patient from all [place] treatmentfacilities. This section includes future appointments and future orders which are active, pending or scheduled. Future Appointments This section includes appointments that were scheduled to occur 6 months from the date of the Encounter, up to a maximum of 20 appointments. The data comes from all [facility]. Appointment Date/Time Appointment Type Appointme nt Facility Name Jun 04, 2024 03:30 PM AMBULATORY - MEDICINE [facility] Jul 08, 2024 03:00 PM AMBULATORY - PSYCHIATRY [facility] Jul 09, 2024 01:30 PM AMBULATORY - SURGERY [facility] Sep 04, 2024 11:30 AM AMBULATORY - PSYCHIATRY [facility] Sep 14, 2024 02:00 PM AMBULATORY - MEDICINE [facility] Sep 15, 2024 11:30 AM AMBULATORY MEDICINE [facility] Active, Pending, and Scheduled Orders This section includes a listing of several types of active, pending, and scheduled orders, including clinic medications orders, diagnostic test orders, procedure orders and consult orders; where the start date of the order is 45 days before the date of the Encounter or 45 days after the date of theEncounter. The data comes from all [facility]. Test Date/Time Test Type Test Details Facility Name Jun 02, 2024 09:21 PM Consult Order PSYCHOTHERAPY SOP[facility] OUTPT Cons [facility] Jun 18, 2024 12:00 AM Laboratory - Chemistry Order HEMOGLOBIN A1C PANEL BLOOD (LAV-BLOOD) [facility] Social History: Smoking Status (Most current) [...] 24, 2022 02:00 PM VA-TOBACCO NEVER USED [facility] Tobacco Use History This section includes a history of the smoking, or tobacco-related health factors, that were collected on or before the date of the Encounter. The data comes from the [place] facility where the Encounter took place. Date/Time Smoking Status/Tobacco Use Comment F acility Nov 29, 2015 02:08 PM LIFETIME NON-TOBACCO USER [facility] Advance Directives: All historical and current Section Date Range: From patient's date of to the date document was created. This section includes ALL of a patient's completed or amended [place] Advance and Rescinded Directives. The entries below indicate that a directive exists for the patient, but an actual copy is not included with this document. The data comes from all [place] facilities. Date Advance Directives Provider Source Sep 08, 2009 ADVANCE DIRECTIVE CHOLO CONRAD [facility] Encounter Notes: All associated encounter notes This section contains the clinical notes associated to the Encounter. Date/Time Encounter Note(s) Provider Source Jun 02, 2024 08:35 PM ADDENDUM: LOCAL TITLE: Addendum STANDARD TITLE: ADDENDUM DATE OF NOTE: JUN 02, 2024@20:35:30 ENTRY DATE: JUN 02, 2024@20:35:30 AUTHOR: AZAEL ZHANG COSIGNER: URGENCY: STATUS: COMPLETED Patient request psychotherapist in clinic to help her cope with losses, she prefers female therapist /rajeev/ AZAEL ZHANG MD STAFF PSYCHIATRIST Signed: 06/02/2024 20:35 Receipt Acknowledged By: 06/02/2024 21:20 /rajeev/ Darwin Aponte Psy.D. PIPELINE TECHNICIAN, CLINICAL PSYCHOLOGIST --- Original Document --- 06/02/24 PSYCHIATRY NOTE: 30 minutes for encounter -- including chart review, interview, charting chart reviewed Patient presents as stable. This is despite coping with losses, including of brother. She denies depression. Anxiety improved. Affect brightens [...] The patient denied history of alcohol abuse (previously reports occasional glass of wine). Denies street drugs. [...] Adjustment disorder with anxious mood (SNOMED CT 46010420) 9. Hydradenitis * 10. Type 2 diabetes mellitus (SNOMED CT 89891082) 11. Insomnia * 12. Hysterectomy * 13. Dizziness * 14. Somatization Disorder 15. Obesity (SNOMED CT 646733043) 16. Headache * 17. Hypertension (SNOMED CT 14084022) 18. Hyperlipidemia (SNOMED CT 63376201) 19. CONRADO - Generalized anxiety disorder (SNOMED CT 08947508) 20. Depression (SNOMED CT 68917485) Active Outpatient Medications (including Supplies): Active Outpatient [...] ACTIVE DAILY FOR TYPE 2 DIABETES MELLITUS 8) [...] THREE TIMES ACTIVE DAILY NEEDED 9) Non-VA MULTIVITAMIN W/MINERAL TAB BY MOUTH ACTIVE [...] denied suicidal and violent ideation, but the [facility] Crisis Line information and number were reviewed w patient as a precaution. The patient also understands to call 911 or to go to ER in the event of an emergency. psychotherapy for anxiety/mood --patient request female therapist CONTINUE CYMBALTA 30 MG BID, good response for depression and fibromyalgia and anxiety. Patient wants to keep this the same. CONTINUE HYDROXYZINE LOW-DOSE 10 MG NIGHTLY NEEDED INSOMNIA. Risk of next- day sedation reviewed with the patient. This is helpful when patient does take it for insomnia. Patient sometimes uses MELATONIN [id number] for sleep, in addition to hydroxyzine, well-tolerated [...] if has side effects with psychiatric medication. Patient requests referral to move program Medication Reconciliation: Outpatient: Has the patient been [...] /rajeev/ AZAEL ZHANG MD STAFF PSYCHIATRIST Signed: 06/02/2024 20:35 AZAEL ZHANG [facility] Jun 02, 2024 03:22 PM PSYCHIATRY NOTE: LOCAL TITLE: PSYCHIATRY NOTE STANDARD TITLE: PSYCHIATRY NOTE DATE OF NOTE: JUN 02, 2024@15:22 ENTRY DATE: JUN 02, 2024@15:22:10 AUTHOR: AZAEL ZHANG EXP COSIGNER: URGENCY: STATUS: COMPLETED PSYCHIATRY NOTE Has ADDENDA 30 minutes for encounter -- including chart review, interview, charting chart reviewed Patient presents as stable. This is despite coping with losses, including of brother. She denies depression. Anxiety improved. Affect brightens [...] The patient denied history of alcohol abuse (previously reports occasional glass of wine). Denies street drugs. [...] Adjustment disorder with anxious mood (SNOMED CT 47942399) 9. Hydradenitis * 10. Type 2 diabetes mellitus (SNOMED CT 26462712) 11. Insomnia * 12. Hysterectomy * 13. Dizziness * 14. Somatization Disorder 15. Obesity (SNOMED CT 160743639) 16. Headache * 17. Hypertension (SNOMED CT 08493402) 18. Hyperlipidemia (SNOMED CT 33335601) 19. CONRADO - Generalized anxiety disorder (SNOMED CT 92509170) 20. Depression (SNOMED CT 35375524) Active Outpatient Medications (including Supplies): Active Outpatient [...] ACTIVE DAILY FOR TYPE 2 DIABETES MELLITUS 8) [...] THREE TIMES ACTIVE DAILY NEEDED 9) Non-VA MULTIVITAMIN W/MINERAL TAB BY MOUTH ACTIVE [...] denied suicidal and violent ideation, but the [facility] information and number were reviewed w patient as a precaution. The patient also understands to call 911 or to go to ER in the event of an emergency. psychotherapy for anxiety/mood --patient request female therapist CONTINUE CYMBALTA 30 MG BID, good response for depression and fibromyalgia and anxiety. Patient wants to keep this the same. CONTINUE HYDROXYZINE LOW-DOSE 10 MG NIGHTLY NEEDED INSOMNIA. Risk of next- day sedation reviewed with the patient. This is helpful when patient does take it for insomnia. Patient sometimes uses MELATONIN [id number] for sleep, in addition to hydroxyzine, well-tolerated [...] if has side effects with psychiatric medication. Patient requests referral to move program Medication Reconciliation: Outpatient: Has the patient been taking medications as documented in the EMLR? YES: The patient has been taking medications as documented in the EMLR. Essential Medication List for Review used to complete this medication reconciliation. INCLUDED IN THIS LIST: Alphabetical list of active outpatient prescriptions dispensed from this [place] (local) and dispensed from another [place] or DoD facility (remote) as well as [...] whether with a VA or non-VA provider. /diego ZHANG MD STAFF PSYCHIATRIST Signed: 06/02/2024 20:35 06/02/2024 ADDENDUM STATUS: COMPLETED Patient request psychotherapist in clinic to help her cope with losses, she prefers female therapist /diego ZHANG MD STAFF PSYCHIATRIST Signed: 06/02/2024 20:35 Receipt Acknowledged By: * AWAITING SIGNATURE * DARWIN APONTE,AZAEL TINOCO
--- OUTSIDE RECORDS SUMMARY | 2024-12-31 15:32 | XMS_ITS | Encounter Summary ---
Author Name [facility] [place] Organization [facility] [place] Address [address] [place] [address] Care Team Providers Care Rn Research Name Role Phone YAHAIRA ESCALANTE Primary Care [...] Bueno's Name Patient's Relationship to Policy Bueno [facility] Feb 28, 2004 Jul 01, 2026 [id number] ЕЛЕНА JORDAN PATIENT [facility] Feb 28, 2004 Jul 01, 2026 [facility] [id number] JULIAN ЕЛЕНА PATIENT [facility] W/OME DICAR E Feb 28, 2004 Jul 01, 2026 [facility] [id number] ЕЛЕНА JORDAN PATIENT [facility] Feb 28, 2004 Jul 01, 2026 [id number] KIKO JORDAN JR SPOUSE [facility] Feb 28, 2004 Jul 01, 2026 [id number] [place], ЕЛЕНА PATIENT [facility] Feb 28, 2004 Jul 01, 2026 [facility] [id number] [phone] ЕЛЕНА JORDAN PATIENT [facility] Jun 18, 2015 Jul 01, 2026 [facility] [id number] [phone] SUMMER JORDANTA PATIENT [facility] Jan 19, 2013 Jul 01, 2026 [facility] [id number] [phone] SUMMER JORDANTA PATIENT [facility] Sep 22, 2012 Jul 01, 2026 [facility] [id number] KIKO JORDAN JR SPOUSE [facility] Sep 22, 2012 Jul 01, 2026 [facility] [id number] SUMMER JORDANTA PATIENT [facility] Sep 22, 2012 Jul 01, 2026 [facility] [id number] [phone] ЕЛЕНА JORDAN PATIENT [facility] Feb 28, 2004 Jul 01, 2026 [facility] [id number] [phone] ЕЛЕНА JORDAN PATIENT [facility]SANDRA MARAN [facility] Jun 18, 2015 [facility] [id number] [phone] ЕЛЕНА JORDAN PATIENT Selected Encounter This section includes the information on record at [place] for the Encounter. Date/Time Encounter Type Encounter Description Reason Pro vider Source Dec 14, 2024 01:09 PM Outpatient Encounter PRIMARY CARE/MEDICINE [facility] Encounter Template Text not used by [...] VA-TOBACCO NEVER USED [place] [facility] Tobacco Use History This section includes a history of the smoking, or tobacco-related health factors, that were collected on or before the date of the Encounter. The data comes from the [place] facility where the Encounter took place. Date/Time Smoking Status/Tobacco Use Comment F acility Jan 04, 2023 03:00 PM VA-TOBACCO NEVER USED [place] [facility] [place] [facility] Feb 20, 2021 11:30 AM VA-TOBACCO NEVER USED [place] [facility] [place] [facility] Feb 18, 2020 09:39 AM [facility] USED [place] [facility] Dec 02, 2018 03:30 PM VA-[place]BACCO FORMER USER [place] [facility] Dec 02, 2018 03:30 PM VA-TOBACCO QUIT 15 YRS OR MORE [place] [facility] Feb 28, 2018 02:37 PM QUIT TOBACCO USE > 7 YEARS AGO [place] [facility] Nov 23, 2016 10:49 AM LIFETIME NON-TOBACCO USER [place] [facility] April 10, 2005 09:23 AM LIFETIME NON-SMOKER [place] [facility] April 10, 2005 09:23 AM LIFETIME [facility] Advance Directives: All historical and current [...] Sep 08, 2009 ADVANCE DIRECTIVE CHOLO CONRAD [facility] Encounter Notes: All associated encounter notes This section contains the clinical notes associated to the Encounter. Date/Time Encounter Note(s) Provider Source Dec 14, 2024 01:09 PM PRIMARY CARE TELEP ANITA ENCOUNTER NOTE: LOCAL TITLE: TELEPHONE NOTE/PRIMARY CARE STANDARD TITLE: PRIMARY CARE TELEPHONE ENCOUNTER NOTE DATE OF NOTE: DEC 14, 2024@13:09 ENTRY DATE: DEC 14, 2024@13:09:43 AUTHOR: YAHAIRA ESCALANTE EXP COSIGNER: URGENCY: STATUS: COMPLETED TELEPHONE NOTE/PRIMARY CARE Has ADDENDA Called to notify her of her breast bx results showing Invasive ductal carcinoma she will need breast surgery consult and likely oncology consult. I spoke to her and her and advised them that I will check with our team to see who is closet breast surgeon within the [place] since she is [facility] recipient She has but does not want to use states he overpays when he uses that. She is aware that after 66 [facility] Is no long recovered she is turning age 65 in June and I have advised her to start looking for outside PCPs can take a year or longer to get appt, in the interim we will help her get the care and treatment she needs and if with VA only is the option will try to get the closest for her. She and appreciated call I have advised they call eligibility with any questions about [facility] as well they thanked me. I called Claudia CHRIS to let them know we won't refer to Claudia at this time / [facility] but will handle it here through a VA that has the services. I will call and her when the plan is in place. Questions answered they appreciated call /rajeev/ RUBI MCMILLAN Nurse Practitioner Signed: 12/14/2024 13:16 12/14/2024 ADDENDUM STATUS: COMPLETED called vet back and spoke to her and It was brought to my attention that there is no breast surgeon in [facility] thus will have social work reach out to discuss insurance options and plan going foward so she gets the care and treatment she needs in timely fashion /rajeev/ RUBI MCMILLAN Nurse Practitioner Signed: 12/14/2024 14:39 YAHAIRA ESCALANTE [place] [facility]
--- OUTSIDE RECORDS SUMMARY | 2024-12-31 15:32 | XMS_ITS | Encounter Summary ---
Author Name [facility] [place] Organization [facility] ([place]) Address [address] [place] [id number] Care Team Providers Care Line Walker Name Role Phone YAHAIRA ESCALANTE Primary Care [...] Bueno's Name Patient's Relationship to Policy Bueno [facility] Feb 28, 2004 Jul 01, 2026 [facility] [id number] ЕЛЕНА JORDAN PATIENT W/OME DICAR E Feb 28, 2004 Jul 01, 2026 [facility] [id number] CHANDANCASTRO ЕЛЕНА PATIENT [facility] Feb 28, 2004 Jul 01, 2026 [id number] [phone] KIKO JORDAN JR SPOUSE [facility] Feb 28, 2004 Jul 01, 2026 [id number] ЕЛЕНА JORDAN PATIENT [facility] Feb 28, 2004 Jul 01, 2026 [id number] ЕЛЕНА JORDAN PATIENT [facility] Feb 28, 2004 Jul 01, 2026 [facility] [id number] [phone] ЕЛЕНА JORDAN PATIENT [facility] Jun 18, 2015 Jul 01, 2026 [facility] [id number] SUMMER JORDANTA PATIENT [facility] Jan 19, 2013 Jul 01, 2026 [facility] [id number] 88 SUMMER JORDANTA PATIENT [facility] Sep 22, 2012 Jul 01, 2026 [facility] [id number] 88 SUMMER JORDANTA PATIENT [facility] Sep 22, 2012 Jul 01, 2026 [facility] [id number] KIKO JORDAN JR SPOUSE [facility] Sep 22, 2012 Jul 01, 2026 [facility] [id number] 88 ЕЛЕНА JORDAN PATIENT [facility] Feb 28, 2004 Jul 01, 2026 [facility] [id number] [phone] ЕЛЕНА JORDAN PATIENT [facility]SANDRA MARAN [facility] Jun 18, 2015 [facility] [id number] [phone] ЕЛЕНА JORDAN PATIENT Selected Encounter This section includes the information on record at [place] for the Encounter. Date/Time Encounter Type Encounter Description Reason Provider Source Apr 28, 2024 10:00 AM OFFICE O/P EST MOD 30 [facility] - IND ICD-10-CM F41.1 Generalized anxiety disorder KENDALL ZHANG Ana Encounter Template Text not used by [place] Assessments - Encounter Diagnoses This section includes the primary and secondary diagnoses documented for the Encounter. Date/Time Primary/Secondary Diagnosis Diagnosis Name Provider Source Apr 28, 2024 10:42 AM PRIMARY Generalized anxiety disorder AZAEL ZHANG Plan of Treatment: Future Appointments (+ 6 months) and Future Tests (+/- 45 days) The Plan of Treatment section includes future care activities for the patient from all [place] treatmentfacilities. This section includes future appointments and future orders which are active, pending or scheduled. Future Appointments This section includes appointments that were scheduled to occur 6 months from the date of the Encounter, up to a maximum of 20 appointments. The data comes from all [facility]. Appointment Date/Time Appointment Type Appointme nt Facility Name May 05, 2024 03:00 PM AMBULATORY - MEDICINE [facility] Jun 02, 2024 02:30 PM AMBULATORY - PSYCHIATRY [facility] Jun 04, 2024 03:30 PM AMBULATORY - MEDICINE [facility] Jul 08, 2024 03:00 PM AMBULATORY - PSYCHIATRY [facility] Jul 09, 2024 01:30 PM AMBULATORY - SURGERY [facility] Sep 04, 2024 11:30 AM AMBULATORY - PSYCHIATRY [facility] Sep 14, 2024 02:00 PM AMBULATORY - MEDICINE [facility] Sep 15, 2024 11:30 AM AMBULATORY - MEDICINE [facility] Active, Pending, and Scheduled Orders This section includes a listing of several types of active, pending, and scheduled orders, including clinic medications orders, diagnostic test orders, procedure orders and consult orders; where the start date of the order is 45 days before the date of the Encounter or 45 days after the date of theEncounter. The data comes from all [facility]. Test Date/Time Test Type Test Details Facility Name March 18, 2024 12:00 AM Laboratory - Chemistry Order HEMOGLOBIN A1C PANEL BLOOD (LAV-BLOOD) [facility] Jun 02, 2024 09:21 PM Consult Order PSYCHOTHERAPY SOPC OUTPT Cons Still Operator Helper's Choice [place] Lab Results: +/- 30 days of the encounter This section includes the Chemistry and Hematology Lab Results on record with [place] for the patient. Radiology Reports and Pathology Reports are provided separately, in subsequent sections. Lab Results This section contains the Chemistry/Hematology Results that were resulted 30 days before or 30 daysafter the date of the Encounter. Date/Time Source Result Type Result - Unit Interpretation Reference Range Comment Apr 21, 2024 02:06 PM [facility] HEMOGLOBIN A1C PANEL Specimen Type: BLOOD [...] April 17, 2024 01:15 PM Reporting Lab: [facility] [address] [address] Performing Lab: [address] [address] HEMOGLOBIN A1C 7.6 H 4.0-5.6 Apr 21, 2024 02:06 PM [facility] CBC Specimen Type: BLOOD No comment entered. Ordering Provider: YAHAIRA ESCALANTE Report Released Date/Time: April 17, 2024 01:15 PM Reporting Lab: [address] [address] Performing Lab: [address] [address] WBC 9.47 10*3/uL 4.50-11.00 RBC 4.60 10*6/uL 3.93-5.16 HGB 13.9 g/dL 12-15.2 HCT 42.2 36.6-45.6 MCV 91.7 fL 82-99 MCHC 32.9 g/dL 30.8-35.1 PLT 244 10*3/uL 140-360 RDW-CV 12.4 12.0-16.0 MCH 30.2 pg 26.2-32.6 Apr 21, 2024 02:06 PM [facility] BASIC METABOLIC PANEL (non-fasting) Specimen Type: SERUM No comment entered. Ordering Provider: YAHAIRA ESCALANTE Report Released Date/Time: April 17, 2024 01:15 PM Reporting Lab: [address] [address] Performing Lab: [address] [address] [facility] NITROGEN 15 mg/dL 7-25 GLUCOSE 140 mg/dL H 65-100 SODIUM 135 mmol/L 135-145 POTASSIUM 3.9 mmol/L 3.5-5.0 CHLORIDE 100 mmol/L 100-110 CO2 26 meq/L 20-30 CREATININE, Serum 0.69 mg/dL 0.50-1.40 eGFR(CKD-EPI 2020) >90 mL/min >60 Social History: Smoking Status (Most current) and Tobacco Use (All prior to encounter date) This section includes the most current, and the historical, smoking and tobacco- related health factors from the [place] facility where the Encounter took place. Current Smoking Status This section includes the most current smoking, or tobacco-related health factor, from the [place] facility where the Encounter took place. Date/Time Current Smoking Status Comment Facil ity Jan 24, 2022 02:00 PM VA-TOBACCO NEVER USED [place] Tobacco Use History This section includes a history of the smoking, or tobacco-related health factors, that were collected on or before the date of the Encounter. The data comes from the [place] facility where the Encounter took place. Date/Time Smoking Status/Tobacco Use Comment F acility Nov 29, 2015 02:08 PM LIFETIME NON-TOBACCO USER [place] Advance Directives: All historical and current Section Date Range: From patient's date of to the date document was created. This section includes ALL of a patient's completed or amended [place] Advance and Rescinded Directives. The entries below indicate that a directive exists for the patient, but an actual copy is not included with this document. The data comes from all [place] facilities. Date Advance Directives Provider Source Sep 08, 2009 ADVANCE DIRECTIVE CHOLO CONRAD [facility] Encounter Notes: All associated encounter notes This section contains the clinical notes associated to the Encounter. Date/Time Encounter Note(s) Provider Source Apr 28, 2024 10:03 AM PSYCHIATRY NOTE: LOCAL TITLE: PSYCHIATRY NOTE STANDARD TITLE: PSYCHIATRY NOTE DATE OF NOTE: APR 28, 2024@10:03 ENTRY DATE: APR 28, 2024@10:03:59 AUTHOR: AZAEL ZHANG EXP COSIGNER: URGENCY: STATUS: COMPLETED 30 minutes for encounter -- including chart review, interview, charting chart reviewed Patient stable today, she feels much better after starting Cymbalta again last evening -- see my addendum to [facility] clinical triage note from yesterday. She had been off of Cymbalta about a week and was having SNRI withdrawal symptoms, these have completely resolved with the patient being back on the medication. She has stopped the medication abruptly due to concern about receiving a letter about needing to stop the medication (unfortunately they do not have a copy of the letter today). So her last prescription bottle with the Cymbalta was disposed of. I reviewed with the pharmacy, and the pharmacist indicated there was an old recall letter from over a year ago, but not recently. The pharmacy will fill the medication today to make sure the patient has adequate supply. Today, the patient presents doing well. Depression and anxiety improved. Affect brightens appropriately. She denies SI and violent ideation. Well organized. No h/o psychotic symptoms. No PI or delusions presented. Cognitive exam grossly intact. Good self-care. No slowing noted. Has interests. We again reviewed the medications, and the patient feels that the Cymbalta is helpful for depression and anxiety and irritability. Well-tolerated. She would like to keep the Cymbalta the same. Hydroxyzine helps insomnia. I again educated the patient about the withdrawal syndrome if Cymbalta is stopped abruptly (and the need to taper down the medication gradually if it is stopped), patient verbalizes good understanding. Patient agrees to call clinic if she decides to stop the Cymbalta again. The patient denied history of alcohol abuse [...] Adjustment disorder with anxious mood (SNOMED CT 34496003) 9. Hydradenitis * 10. Type 2 diabetes mellitus (SNOMED CT 68334080) 11. Insomnia * 12. Hysterectomy * 13. Dizziness * 14. Somatization Disorder 15. Obesity (SNOMED CT 848517925) 16. Headache * 17. Hypertension (SNOMED CT 64124650) 18. Hyperlipidemia (SNOMED CT 17128288) 19. CONRADO - Generalized anxiety disorder (SNOMED CT 79134484) 20. Depression (SNOMED CT 50239512) Active Outpatient Medications (including Supplies): Active Outpatient Medications Status ======= 1) ACCU-CHEK GUIDE (GLUCOSE) TEST STRIP USE 1 STRIP TO ACTIVE TEST BLOOD SUGARS TWICE A WEEK NEEDED 2) ACCU-CHEK GUIDE ME (GLUCOSE) METER USE METER TO TEST ACTIVE BLOOD SUGARS TWICE A WEEK NEEDED 3) ALCOHOL PREP PAD USE 1 PAD TOPICALLY TWICE A WEEK ACTIVE NEEDED TO CLEAN SKIN FOR INJECTION ETC 4) AMLODIPINE BESYLATE 5MG TAB TAKE ONE TABLET BY MOUTH ACTIVE (S) ONCE DAILY FOR BLOOD PRESSURE/HEART, DO NOT TAKE WITH GRAPEFRUIT JUICE 5) ATENOLOL 100MG TAB TAKE ONE TABLET BY MOUTH AT ACTIVE BEDTIME FOR BLOOD PRESSURE/HEART 6) ATORVASTATIN CALCIUM 40MG TAB TAKE ONE-HALF TABLET BY ACTIVE MOUTH DAILY FOR CHOLESTEROL 7) DULOXETINE HCL 30MG EC CAP TAKE ONE CAPSULE BY MOUTH ACTIVE TWICE DAILY 8) EMPAGLIFLOZIN 10MG TAB TAKE ONE TABLET BY MOUTH ONCE ACTIVE DAILY FOR TYPE 2 DIABETES MELLITUS 9) HYDROCHLOROTHIAZIDE 25MG TAB TAKE ONE TABLET BY MOUTH ACTIVE DAILY TO PREVENT FLUID/CONTROL BLOOD PRESSURE 10) HYDROXYZINE HCL 10MG TAB TAKE ONE TABLET BY MOUTH AT ACTIVE BEDTIME NEEDED FOR INSOMNIA 11) LANCET,SOFTCLIX USE 1 LANCET DIRECTED TWICE A WEEK ACTIVE NEEDED TO TEST BLOOD SUGAR 12) LOSARTAN 100MG TAB TAKE ONE TABLET BY MOUTH ONCE ACTIVE DAILY FOR BLOOD PRESSURE/HEART 13) OMEPRAZOLE 20MG EC CAP TAKE ONE CAPSULE BY MOUTH ACTIVE EVERY MORNING 30 MINUTES BEFORE BREAKFAST FOR REFLUX 14) SEMAGLUTIDE 1MG/0.75ML INJ PEN 3ML INJECT 1MG ACTIVE SUBCUTANEOUSLY ONCE A WEEK 15) TRIAMCINOLONE ACETONIDE 0.1% OINT APPLY SMALL AMOUNT ACTIVE TOPICALLY TWICE DAILY DIRECTED Active Non-VA Medications Status ======= 1) Non-VA [...] TAB BY MOUTH ACTIVE 24 Total Medications PAST PSYCH MED HX: Pt [...] PLAN: Careful risk assessment performed. See C-SSRS below The pt is probably low risk for suicide or violence -- the patient denied suicidal and violent ideation, but the [employer] Crisis Line information and number were reviewed w patient as a precaution. The patient also understands to call 911 or to go to ER in the event of an emergency. She again declined psychotherapy for anxiety/mood --she does not feel she needs this CONTINUE CYMBALTA 30 MG BID, good response for depression and fibromyalgia and anxiety. Patient wants to keep this the same. 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 They had picked up a order I phoned in last night to [facility] pharm to cover withdrawal symptoms last night. This was successful. Patient much more comfortable. note that melatonin previously was previously discontinued CONTINUE HYDROXYZINE LOW-DOSE 10 MG NIGHTLY NEEDED INSOMNIA. Risk of next- day sedation reviewed with the patient. This is helpful when patient does take it for insomnia. consider remeron low dose to augment cymbalta (and to help with sleep)- but pt feel she is doing well with current meds, and does not Remeron at this time Return to clinic 1 mo for medication f/u or sooner thr [...] Review used to complete this medication reconciliation. Suicide Screen: C-SSRS Screening [place]-Suicide Severity Rating Scale (C-SSRS Screener) 1. Over the past month, have you wished you were or wished you could go to sleep and not wake up? No 2. Over the past month, have you had any actual thoughts of killing yourself? No 3. Over the past month, have you been thinking about how you might do this? Response not required due to responses to other questions. 4. Over the past month, have you had these thoughts and had some intention of acting on them? Response not required due to responses to other questions. 5. Over the past month, have you started to work out or worked out the details of how to kill yourself? Response not required due to responses to other questions. 6. If yes, at any time in the past month did you intend to carry out this plan? Response not required due to responses to other questions. 7. In your lifetime, have you ever done anything, started to do anything, or prepared to do anything to end your life (for example, collected pills, obtained a gun, gave away valuables, went to the roof but didn't jump)? No 8. If YES, was this within the past 3 months? Response not required due to responses to other questions. /rajeev/ AZAEL ZHANG MD STAFF PSYCHIATRIST Signed: 04/28/2024 10:42 AZAEL ZHANG
--- OUTSIDE RECORDS SUMMARY | 2024-12-31 15:32 | XMS_ITS | Encounter Summary ---
Author Name [facility] [place] Organization [facility] [place] Address [address] [place] [address] Care Team Providers Care Pearl Restorer Name Role Phone YAHAIRA ESCALANTE Primary Care [...] Bueno's Name Patient's Relationship to Policy Bueno [facility] Feb 28, 2004 Jul 01, 2026 [facility] [id number] ЕЛЕНА JORDAN PATIENT W/OME DICAR E Feb 28, 2004 Jul 01, 2026 [facility] [id number] 88 ЕЛЕНА JORDAN PATIENT [facility] Feb 28, 2004 Jul 01, 2026 [id number] KIKO JORDAN JR SPOUSE [facility] Feb 28, 2004 Jul 01, 2026 [id number] ЕЛЕНА JORDAN PATIENT [facility] Feb 28, 2004 Jul 01, 2026 [id number] [phone] ЕЛЕНА JORDAN PATIENT [facility] Feb 28, 2004 Jul 01, 2026 [facility] [id number] 88 ЕЛЕНА JORDAN PATIENT [facility] Jun 18, 2015 Jul 01, 2026 [facility] [id number] ЕЛЕНА JORDAN PATIENT [facility] Jan 19, 2013 Jul 01, 2026 [facility] [id number] 88 ЕЛЕНА JORDAN PATIENT [facility] Sep 22, 2012 Jul 01, 2026 [facility] [id number] [phone] ЕЛЕНА JORDAN PATIENT [facility] Sep 22, 2012 Jul 01, 2026 [facility] [id number] [phone] KIKO JORDAN JR SPOUSE [facility] Sep 22, 2012 Jul 01, 2026 [facility] [id number] 88 ЕЛЕНА JORDAN PATIENT [facility] Feb 28, 2004 Jul 01, 2026 [facility] [id number] [phone] ЕЛЕНА JORDAN PATIENT [facility]SANDRA MARAN [facility] Jun 18, 2015 [facility] [id number] [id number] ЕЛЕНА JORDAN PATIENT Selected Encounter This section includes the information on record at [place] for the Encounter. Date/Time Encounter Type Encounter Description Reason Pro vider Source Dec 31, 2024 11:10 AM Outpatient Encounter ADMIN PAT ACTIVTIES (MASNONCT) [facility] Encounter Template Text not used by [place] Plan of Treatment: Future Appointments (+ 6 months) and Future Tests (+/- 45 days) The Plan of Treatment section includes future care activities for the patient from all [place] treatmentfacilities. This section includes future appointments and future orders which are active, pending or scheduled. Future Appointments This section includes appointments that were scheduled to occur 6 months from the date of the Encounter, up to a maximum of 20 appointments. The data comes from all [place] treatment facilities. Appointment Date/Time Appointment Type Appointme nt Facility Name Jun 29, 2025 02:30 PM [facility] Active, Pending, and Scheduled Orders This section includes a listing of several types of active, pending, and scheduled orders, including clinic medications orders, diagnostic test orders, procedure orders and consult orders; where the start date of the order is 45 days before the date of the Encounter or 45 days after the date of theEncounter. The data comes from all [place] treatment facilities. Test Date/Time Test Type Test Details Facility Name Feb 12, 2025 12:00 AM Laboratory - Chemistry Order LIPID PANEL FASTING BLOOD (SST-SERUM) [facility] Feb 12, 2025 12:00 AM Laboratory - Chemistry Order BASIC METABOLIC PANEL (non-fasting) BLOOD (SST-SERUM) [facility] Feb 12, 2025 12:00 AM Laboratory - Chemistry Order HEMOGLOBIN A1C PANEL BLOOD (LAV-BLOOD) [facility] Feb 12, 2025 12:00 AM Laboratory - Chemistry Order MICROALBUMIN CREATININE RATIO PANEL URINE (RANDOM) [facility] Social History: Smoking Status (Most current) and Tobacco Use (All prior to encounter date) This section includes the most current, and the historical, smoking and tobacco- related health factors from the [place] facility where the Encounter took place. Current Smoking Status This section includes the most current smoking, or tobacco-related health factor, from the [place] facility where the Encounter took place. Date/Time Current Smoking Status Comment [place] [facility] Dec 09, 2023 01:00 PM [facility] Tobacco Use History This section includes a history of the smoking, or tobacco-related health factors, that were collected on or before the date of the Encounter. The data comes from the [place] facility where the Encounter took place. Date/Time Smoking Status/Tobacco Use Comment F acility Jan 04, 2023 03:00 PM VA-TOBACCO NEVER USED [place] [facility] [place] [facility] Feb 20, 2021 11:30 AM VA-TOBACCO NEVER USED [place] [facility] [place] [facility] Feb 18, 2020 09:39 AM VA-TOBACCO NEVER USED [place] [facility] [place] [facility] Dec 02, 2018 03:30 PM VA-TOBACCO FORMER USER [facility] Dec 02, 2018 03:30 PM VA-TOBACCO QUIT 15 YRS OR MORE [facility] Feb 28, 2018 02:37 PM QUIT TOBACCO USE > 7 YEARS AGO [facility] Nov 23, 2016 10:49 AM LIFETIME NON-TOBACCO USER [facility] April 10, 2005 09:23 AM LIFETIME NON-SMOKER [facility] April 10, 2005 09:23 AM LIFETIME NON-TOBACCO USER [facility] Advance Directives: All historical and current Section Date Range: From patient's date of to the date document was created. This section includes ALL of a patient's completed or amended [place] Advance and Rescinded Directives. The entries below indicate that a directive exists for the patient, but an actual copy is not included with this document. The data comes from all [place] facilities. Date Advance Directives Provider Source Sep 08, 2009 ADVANCE DIRECTIVE CHOLO CONRAD [facility] Encounter Notes: All associated encounter notes This section contains the clinical notes associated to the Encounter. Date/Time Encounter Note(s) Provider Source Dec 31, 2024 11:10 AM [facility] Medical HEALTH NOTE : LOCAL TITLE: [facility]OM[facility] PROGRAM/INCIDENTAL NOTE STANDARD TITLE: [facility] HEALTH NOTE DATE OF NOTE: DEC 31, 2024@11:10 ENTRY DATE: DEC 31, 2024@11:10:47 AUTHOR: TORSTEN KIRAN EXP COSIGNER: URGENCY: STATUS: COMPLETED On 12/30/24 I spoke to PCP who asked me to see if I could find a provider that accepts [facility] for to receive surgery and oncology services for breast cancer. I sent an email to [facility] call center asking for a list of providers that accept [facility] since the call center line wait was 2 1/2 hour wait. I recieved a call from a [place] employee that [facility] forwarded my email too, he (Rayshawn Barber) works with spina bifida patients that have [facility] insurance and he reports that the [place] Spina Difida program cold calls providers and asks if they accept [facility] or are willing to become contracted with [facility] to care for the veterans family members. He will forward my email to the correct department. Plan: Await response from . SW has reached out to the [place] to see if she will sign up for [facility]. I will add SW to see if the patient was willing to complete [facility] application. /rajeev/ TORSTEN KIRAN, RN MSN REGISTERED NURSE Signed: 12/31/2024 11:36 Receipt Acknowledged By: 12/31/2024 14:37 /es/ RUBI MCMILLAN Nurse Practitioner 12/31/2024 13:09 /es/ Kathie El RN Primary Care Staff Nurse 12/31/2024 12:17 /es/ DONI SWAIN CORPORATE TRAVEL AGENT LICENSED INDEPENDENT CLINICAL CONCESSION WORKER 12/31/2024 14:13 /es/ Janay Carver, RN, BSN Women's Healthcare Navigator, RN TORSTEN KIRAN [facility]
--- OUTSIDE RECORDS SUMMARY | 2024-12-31 15:32 | XMS_ITS | Encounter Summary ---
Author Name [facility] [place] Organization [facility] [place] Address [address] [place] [address] Care Team Providers Care Construction Accountant Name Role Phone YAHAIRA ESCALANTE Primary Care [...] Bueno's Name Patient's Relationship to Policy Bueno [facility] Feb 28, 2004 Jul 01, 2026 [id number] ЕЛЕНА JORDAN PATIENT [facility] Feb 28, 2004 Jul 01, 2026 [facility] [id number] ЕЛЕНА JORDAN PATIENT [facility] W/OME DICAR E Feb 28, 2004 Jul 01, 2026 [facility] [id number] ЕЛЕНА JORDAN PATIENT [facility] Feb 28, 2004 Jul 01, 2026 [id number] [phone] KIKO JORDAN JR SPOUSE [facility] Feb 28, 2004 Jul 01, 2026 [id number] [phone] ЕЛЕНА JORDAN PATIENT [facility] Feb 28, 2004 Jul 01, 2026 [facility] [id number] ЕЛЕНА JORDAN PATIENT [facility] Jun 18, 2015 Jul 01, 2026 [facility] [id number] [phone] ЕЛЕНА JORDAN PATIENT [facility] Jan 19, 2013 Jul 01, 2026 [facility] [id number] ЕЛЕНА JORDAN PATIENT [facility] Sep 22, 2012 Jul 01, 2026 [facility] [id number] KIKO JORDAN JR SPOUSE [facility] Sep 22, 2012 Jul 01, 2026 [facility] [id number] ЕЛЕНА JORDAN PATIENT [facility] Sep 22, 2012 Jul 01, 2026 [facility] [id number] [phone] ЕЛЕНА JORDAN PATIENT [facility] PRESCRIPT [facility] Feb 28, 2004 Jul 01, 2026 [facility] [id number] [phone] ЕЛЕНА JORDAN PATIENT [facility]UM/SANDRA MARAN [facility] Jun 18, 2015 [facility] [id number] [phone] ЕЛЕНА JORDAN PATIENT Selected Encounter This section includes the information on record at [place] for the Encounter. Date/Time Encounter Type Encounter Description Reason Provider Source March 18, 2024 02:30 PM OFFICE O/P EST MOD 30 MIN PRIMARY CARE/MEDICINE ICD-10-CM E11.9 Type 2 diabetes mellitus without complications YAHAIRA ESCALANTE [facility] Encounter Template Text not used by [place] Assessments - Encounter Diagnoses This section includes the primary and secondary diagnoses documented for the Encounter. Date/Time Primary/Secondary Diagnosis Diagnosis Name Provider Source March 18, 2024 03:35 PM PRIMARY Type 2 diabetes mellitus without complications YAHAIRA ESCALANTE [facility] [place] [facility] March 18, 2024 03:35 PM SECONDARY Benign neoplasm of meninges, unspecified YAHAIRA ESCALANTE [facility] [place] [facility] March 18, 2024 03:35 PM SECONDARY Essential (primary) hypertension YAHAIRA ESCALANTE [facility] [place] [facility] March 18, 2024 03:35 PM SECONDARY Varicose veins of right lower extremity with inflammation YAHAIRA ESCALANTE [facility] [place] [facility] Plan of Treatment: Future Appointments (+ 6 months) and Future Tests (+/- 45 days) The Plan of Treatment section includes future care activities for the patient [facility] [place] [facility] This section includes future appointments and future orders which are active, pending or scheduled. Future Appointments This section includes appointments that were scheduled to occur 6 months from the date of the Encounter, up to a maximum of 20 appointments. The data comes from all [place] treatment facilities. Appointment Date/Time Appointment Type Appointme nt Facility Name April 07, 2024 03:00 PM AMBULATORY - MEDICINE [place] [facility] [place] [facility] April 14, 2024 02:00 PM AMBULATORY - NONE [facility] [place] [facility] April 15, 2024 01:00 PM AMBULATORY - MEDICINE [facility] [place] [facility] April 16, 2024 02:00 PM AMBULATORY - NONE [facility] [place] [facility] Apr 21, 2024 01:30 PM AMBULATORY - MEDICINE [facility] [place] [facility] Apr 28, 2024 10:00 AM AMBULATORY - PSYCHIATRY [facility] May 05, 2024 03:00 PM AMBULATORY - MEDICINE [place] [facility] [place] [facility] Jun 02, 2024 02:30 PM AMBULATORY - PSYCHIATRY [facility] Jun 04, 2024 03:30 PM AMBULATORY - MEDICINE [place] [facility] [place] [facility] Jul 08, 2024 03:00 PM AMBULATORY - PSYCHIATRY [facility] Jul 09, 2024 01:30 PM AMBULATORY - SURGERY [facility] Sep 04, 2024 11:30 AM AMBULATORY - PSYCHIATRY [facility] Sep 14, 2024 02:00 PM AMBULATORY - MEDICINE [place] [facility] [facility] Sep 15, 2024 11:30 AM AMBULATORY - MEDICINE [place] [facility] [facility] Active, Pending, and Scheduled Orders This section includes a listing of several types of active, pending, and scheduled orders, including clinic medications orders, diagnostic test orders, procedure orders and consult orders; where the start date of the order is 45 days before the date of the Encounter or 45 days after the date of theEncounter. The data comes from all [place] treatment facilities. Test Date/Time Test Type Test Details Facility Name March 18, 2024 12:00 AM Laboratory - Chemistry Order HEMOGLOBIN A1C PANEL BLOOD (LAV[facility]BLOOD) [facility] Vital Signs: All taken on the encounter date This section contains inpatient and outpatient Vital Signs collected on the date of the Encounter. Date/Time Temperature Pulse Blood Pressure Respiratory Rate SP02 Pain Height Weight Body Mass Index Source March 18, 2024 02:38 PM 98.6 80 121/81 14 94 0 163.5 31 [place] [facility] [place] [facility] Social History: Smoking Status (Most current) and Tobacco Use (All prior to encounter date) This section includes the most current, and the historical, smoking and tobacco- related health factors from the [place] facility where the Encounter took place. Current Smoking Status This section includes the most current smoking, or tobacco-related health factor, from the [place] facility where the Encounter took place. Date/Time Current Smoking Status Comment [facility] Dec 09, 2023 01:00 PM [facility]ACCO [facility] Tobacco Use History This section includes a history of the smoking, or tobacco-related health factors, that were collected on or before the date of the Encounter. The data comes from the [place] facility where the Encounter took place. Date/Time Smoking Status/Tobacco Use Comment F acility Jan 04, 2023 03:00 PM VA-TOBACCO NEVER USED [place] [facility] [place] [facility] Feb 20, 2021 11:30 AM VA-TOBACCO NEVER USED [facility] [place] [facility] Feb 18, 2020 09:39 AM VA-TOBACCO NEVER USED [facility] [place] [facility] Dec 02, 2018 03:30 PM VA-TOBACCO FORMER USER [facility] [place] [facility] Dec 02, 2018 03:30 PM VA-TOBACCO QUIT 15 YRS OR MORE [facility] [place] [facility] Feb 28, 2018 02:37 PM QUIT TOBACCO USE > 7 YEARS AGO [facility] [place] [facility] Nov 23, 2016 10:49 AM LIFETIME NON-TOBACCO USER [facility] April 10, 2005 09:23 AM LIFETIME NON-SMOKER [facility] April 10, 2005 09:23 AM LIFETIME NON-TOBACCO USER [facility] Advance Directives: All historical and current Section Date Range: From patient's date of to the date document was created. This section includes ALL of a patient's completed or amended [place] Advance and Rescinded Directives. The entries below indicate that a directive exists for the patient, but an actual copy is not included with this document. The data comes from all [place] facilities. Date Advance Directives Provider Source Sep 08, 2009 ADVANCE DIRECTIVE [facility] Encounter Notes: All associated encounter notes This section contains the clinical notes associated to the Encounter. Date/Time Encounter Note(s) Provider Source March 18, 2024 02:39 PM PREVENTIVE MEDICINE NURSING NOTE: LOCAL TITLE: CLINICAL REMINDERS/NURSING STANDARD TITLE: PREVENTIVE MEDICINE NURSING NOTE DATE OF NOTE: MARCH 18, 2024@14:39 ENTRY DATE: MARCH 18, 2024@14:39:51 AUTHOR: LEVI BETANCUR EXP COSIGNER: URGENCY: STATUS: COMPLETED COVID-19 Immunization: Refused Moderna Monovalent COVID-19 vaccine Immunization: COVID-19 (MODERNA), MRNA, LNP-S, PF, 50 MCG/0.5 ML (AGES 12+ YEARS) Refusal Reason: PATIENT DECISION Patient refuses all immunization(s) in the COVID-19 group Date Documented: 03/18/24 14:40 Sexual Orientation: The patient thinks of their sexual orientation as: Straight or Heterosexual PAVE Foot Check: A complete foot check was completed at this encounter. VISUAL INSPECTION: Includes inspection for skin breaks, deformity, erythema, trauma, pallor on elevation, dependent rubor, nail deformities, extensive callus and pitting edema. Visual exam results: Normal PEDAL PULSES: Includes palpation of dorsalis and posterior tibial pulses and signs/symptoms of vascular compromise like pain, pallor, parasthesia or paralysis. Present (even if diminished) SENSORY CHECK: Includes 10 gram Monofilament (Cambridge-Bg) test of sensation. Intact (Greater than or equal to 80% of sites checked) Abnormal (Less than 80% of sites checked): Intact LOW-RISK: LOW RISK INFORMATION PROVIDED: 1. Advised patient not to walk barefoot. 2. Explained the importance of daily foot checks for changes. 3. Stressed the importance of daily foot hygiene, including bathing and complete drying. /rajeev/ LEVI BETANCUR, MSN, RN, CNL PRIMARY CARE TEAM NURSE Signed: 03/18/2024 14:41 LEVI BETANCUR [place] [facility] [place] [facility] March 18, 2024 02:38 PM PRIMARY CARE NURSE PRACTITIONER OUTPATIENT NOTE: LOCAL TITLE: NURSE PRACTITIONER OUTPATIENT NOTE STANDARD TITLE: PRIMARY CARE NURSE PRACTITIONER OUTPATIENT NOTE DATE OF NOTE: MARCH 18, 2024@14:38 ENTRY DATE: MARCH 18, 2024@14:38:11 AUTHOR: YAHAIRA ESCALANTE EXP COSIGNER: URGENCY: STATUS: COMPLETED NURSE PRACTITIONER OUTPATIENT NOTE Has ADDENDA Chief complaint: Pt is a 63 who comes in for follow up of medical problems as noted below. HPI: Fatigue is the same as a few months ago also weak at times we checked MARGARITO, Lyme/Tick/Borne, Thyroid all neg She has uncontrolled DM and Hgb A1C was 9.0% we discussed that could likely be the cause HTN Controlled on Atenolol (takes at night) HCTZ Losartan and Amlodipine Type II DM A1C was 9.0% she has since started Ozempic with help from CPP and also on low dose empagliflozin has made great dietary changes and sees Dr Espinoza in a few weeks Meningioma MRI ordered through [place] for f/u she apparently had COVID so never called be to schedule she would like another referral Colorectal CA screening Fit card positive She is and per CC team not covered for CC referral has ongoing painful varicose veins at LLE, does not feel better when using compression stockings. Interested in surgical intervention she had referral PMH: Active problems - Computerized Problem List is the source for the followin. Gastroesophageal reflux disease 2. Allergic rhinitis 3. Fibromyalgia 4. Laboratory test result abnormal [facility] 1: 160 speckled and homogeneous 5. Shingles 6. Intracranial meningioma 12/16/14 6mm and 3mm - repeat MRI 1 year stable on MRI 01/31, repeat ordered for [facility] 7. Sleep apnea 8. Adjustment disorder with anxious mood (SNOMED CT 19978297) 9. Hidradenitis * 10. Type 2 diabetes mellitus (SNOMED CT 70391609) 11. Insomnia * 12. Hysterectomy * 13. Dizziness * 14. Somatization Disorder 15. Obesity (SNOMED CT 541409967) 16. Headache * 17. Hypertension (SNOMED CT 33275952) 18. Hyperlipidemia (SNOMED CT 42678667) 19. CONRADO - Generalized anxiety disorder (SNOMED CT 63869835) reviewed 20. Depression (SNOMED CT 28426793) denies recent depression reviewed Allergies: OMEPRAZOLE, DILAUDID, MORPHINE, ASPIRIN RELATED MEDICATIONS The following VA and Non-VA meds were reconciled with patient: Active and Recently Outpatient Medications (excluding Supplies): Active Outpatient Medications Status 1) ACCU-CHEK GUIDE (GLUCOSE) TEST STRIP USE 1 STRIP TO ACTIVE TEST BLOOD SUGARS TWICE A WEEK NEEDED 2) ACCU-CHEK GUIDE ME (GLUCOSE) METER USE METER TO TEST ACTIVE BLOOD SUGARS TWICE A WEEK NEEDED 3) AMLODIPINE BESYLATE 5MG TAB TAKE ONE [...] TYPE 2 DIABETES MELLITUS TO REPLACE METFORMIN 8) HYDROCHLOROTHIAZIDE 25MG TAB TAKE ONE TABLET BY MOUTH ACTIVE DAILY TO PREVENT FLUID/CONTROL BLOOD PRESSURE 9) HYDROXYZINE HCL 10MG TAB TAKE ONE TABLET BY MOUTH AT ACTIVE BEDTIME NEEDED FOR INSOMNIA 10) LOSARTAN 100MG TAB TAKE ONE TABLET BY MOUTH ONCE ACTIVE DAILY FOR BLOOD PRESSURE/HEART 11) SEMAGLUTIDE 0.25MG/0.375ML INJ PEN 3ML INJECT 0.5MG ACTIVE SUBCUTANEOUSLY ONCE A WEEK Inactive Outpatient Medications Status 1) OMEPRAZOLE 20MG EC CAP TAKE ONE CAPSULE BY MOUTH EVERY MORNING [...] TAB BY MOUTH ACTIVE 21 Total Medications Allergies: OMEPRAZOLE, DILAUDID, MORPHINE, ASPIRIN RELATED MEDICATIONS VITAL SIGNS: 98.6 F [37.0 C] (03/18/2024 14:38) 80 (03/18/2024 14:38) 14 (03/18/2024 14:38) 121/81 (03/18/2024 14:38) 0 (03/18/2024 14:38) 61 in [154.9 cm] (12/09/2023 13:32) 163.5 lb [74.16 kg] (03/18/2024 14:38) BMI: 31.0 ROS General: no fever, no unexplained weight loss or gain CV: denies CP, SOB, palpitations Lung: denies Dyspnea, cough, wheezing Skin: denies rash or other lesions Psych: denies SI Neuro: denies weakness, dizziness, falls, GERBER PHYSICAL EXAM * General: No acute distress, speech is clear, forming sentences. CV: S1S2, RRR, no m/r/g Lung: CTAB, no wheeze, rhonchi, or crackles, good breath sounds to bases b/l Ext: no edema, warm and well perfused bilat. Skin: no lesions or rashes NEURO CN II-XII grossly intact, gait steady without shuffle, Normal sensation to feet bilaterally MENTAL A&Ox3 Appropriate, Pleasant, Cooperative LAB RESULTS LAST 1440 HRS - NONE FOUND Future Clinic Visits 04/07/2024 15:00 CWM/NO/PHARM/PACT 3 TEL 06/02/2024 14:30 CWM/SO/SANGITA/LEATHA ASSESSMENT AND PLAN: #HTN -Controlled on Atenolol (takes at night) for h/o elevated HR -Cont. HCTZ Losartan and Amlodipine #Type II DM -A1C was 9.0% she has since started Ozempic with help from CPP and also on low dose empagliflozin has made great dietary changes and sees Dr Espinoza in a few weeks #Meningioma MRI ordered through [place] for f/u she apparently had COVID so never called be to schedule she would like another referral #Colorectal CA screening Fit card was positive She is and per CC team not covered for CC referral we sent all the info she will have to call to make appt #varicose veins -Given they are painful and no change with compression referral to vascular Return to clinic to see me in 6 months, RTC sooner if needed. Clinical Reminders HIV Screening: Patient has been offered HIV testing and has declined. I have explained that HIV testing is recommended for all adults, even if all risk factors are absent. The patient was educated on the risk of delayed screening. Medication Reconciliation: Outpatient: Has the patient been taking medications as documented in the EMLR? YES: The patient has been taking medications as documented in the EMLR. Essential Medication List for Review used to complete this medication reconciliation. INCLUDED IN THIS LIST: Alphabetical list of active outpatient prescriptions dispensed from this [facility] (local) and dispensed from another [place] or [facility] facility (remote) as well as inpatient orders [...] whether with a VA or non-VA provider. /RUBI Fernandes Nurse Practitioner Signed: 03/18/2024 15:30 03/18/2024 ADDENDUM STATUS: COMPLETED as she was leaving she showed me a small hyperpigmented brown area with scaling dryness that is itchy denies bleeding or pain will trial topical steroid as well as reerral to telederm /RUBI Fernandes Nurse Practitioner Signed: 03/18/2024 15:32 04/17/2024 ADDENDUM STATUS: COMPLETED Based on this exam and her health status at this time I see no medical issues stopping her from planned Cataract proceeded. Labs ordered EKG to be obtained /RUBI Fernandes Nurse Practitioner Signed: 04/17/2024 13:17 YAHAIRA ESCALANTE [facility]
--- OUTSIDE RECORDS SUMMARY | 2024-12-31 15:32 | XMS_ITS | Encounter Summary ---
Author Name [facility] Organization [facility] [place] Address [address] [place] [id number] Care Team Providers Care Business Services Sales Agent Name Role Phone YAHAIRA ESCALANTE Primary Care Provider Arturo martinez Insurance Providers: All historical and current Section Date Range: From patient's date of to the date document was created. This section includes the names of all active insurance providers for the patient. Insurance Provider Type of Coverage Plan Name Start of Policy Coverage End of Policy Coverage Group Number Member ID Insurance Provider's Telephone Number Policy Bueno's Name Patient's Relationship to Policy Bueno [facility] Feb 28, 2004 Jul 01, 2026 [facility] [id number] CHANDANLUIS ERAZOLITA PATIENT W/OME DICAR E Feb 28, 2004 Jul 01, 2026 [facility] [id number] CHANDANЕЛЕНА ERAZO PATIENT [facility] Feb 28, 2004 Jul 01, 2026 [id number] KIKO JORDAN JR SPOUSE [facility] Feb 28, 2004 Jul 01, 2026 [id number] [phone] ЕЛЕНА JORDAN PATIENT [facility] Feb 28, 2004 Jul 01, 2026 [id number] [phone] ЕЛЕНА JORDAN PATIENT [facility] Feb 28, 2004 Jul 01, 2026 [id number] ЕЛЕНА JORDAN PATIENT [facility] Jun 18, 2015 Jul 01, 2026 [facility] [id number] SUMMER JORDANTA PATIENT [facility] Jan 19, 2013 Jul 01, 2026 [facility] [id number] ЕЛЕНА JORDAN PATIENT [facility] Sep 22, 2012 Jul 01, 2026 [facility] [id number] ЕЛЕНА JORDAN PATIENT [facility] Sep 22, 2012 Jul 01, 2026 [facility] [id number] SUMMER JORDANTA PATIENT [facility] Sep 22, 2012 Jul 01, 2026 [facility] [id number] KIKO JORDAN JR SPOUSE [facility] Feb 28, 2004 Jul 01, 2026 [facility] [id number] ЕЛЕНА JORDAN PATIENT [facility]SANDRA MAR[facility] Jun 18, 2015 [facility] [id number] [id number] ЕЛЕНА JORDAN PATIENT Selected Encounter This section includes the information on record at [place] for the Encounter. Date/Time Encounter Type Encounter Description Reason Provider Source April 17, 2024 07:38 AM Outpatient Encounter DERMATOLOGY ICD-10-CM R21 Rash and other nonspecific skin eruption ED[facility] Encounter Template Text not used by [place] Assessments - Encounter Diagnoses This section includes the primary and secondary diagnoses documented for the Encounter. Date/Time Primary/Secondary Diagnosis Diagnosis Name Provider Source April 17, 2024 07:54 AM PRIMARY Rash and other nonspecific skin eruption [facility] Plan of Treatment: Future Appointments (+ 6 months) and Future Tests (+/- 45 days) The Plan of Treatment section includes future care activities for the patient from all [place] treatmentfacilities. This section includes future appointments and future orders which are active, pending or scheduled. Future Appointments This section includes appointments that were scheduled to occur 6 months from the date of the Encounter, up to a maximum of 20 appointments. The data comes from all [facility]. Appointment Date/Time Appointment Type Appointme nt Facility Name Apr 21, 2024 01:30 PM AMBULATORY - [facility] Apr 28, 2024 10:00 AM AMBULATORY - PSYCHIATRY [facility] May 05, 2024 03:00 PM AMBULATORY - [facility] Jun 02, 2024 02:30 PM AMBULATORY - PSYCHIATRY [facility] Jun 04, 2024 03:30 PM AMBULATORY - MEDICINE [facility] Jul 08, 2024 03:00 PM AMBULATORY - PSYCHIATRY [facility] Jul 09, 2024 01:30 PM AMBULATORY - SURGERY [facility] Sep 04, 2024 11:30 AM AMBULATORY - PSYCHIATRY [facility] Sep 14, 2024 02:00 PM AMBULATORY - MEDICINE [facility] Sep 15, 2024 11:30 AM AMBULATORY - MEDICINE [facility] Active, Pending, and Scheduled Orders This section includes a listing of several types of active, pending, and scheduled orders, including clinic medications orders, diagnostic test orders, procedure orders and consult orders; where the start date of the order is 45 days before the date of the Encounter or 45 days after the date of theEncounter. The data comes from all [facility]. Test Date/Time Test Type Test Details Facility Name March 18, 2024 12:00 AM Laboratory - Chemistry Order HEMOGLOBIN A1C PANEL BLOOD (LAV-BLOOD) [facility] Lab Results: +/- 30 days of the encounter This section includes the Chemistry and Hematology Lab Results on record with [place] for the patient. Radiology Reports and Pathology Reports are provided separately, in subsequent sections. Lab Results This section contains the Chemistry/Hematology Results that were resulted 30 days before or 30 daysafter the date of the Encounter. Date/Time Source Result Type Result - Unit Interpretation Reference Range Comment Apr 21, 2024 02:06 PM [facility] HEMOGLOBIN A1C PANEL Specimen Type: BLOOD Comment: [...] April 17, 2024 01:15 PM Reporting Lab: [facility] [address] [facility] [address] Performing Lab: [address] [address] HEMOGLOBIN A1C 7.6 H 4.0-5.6 Apr 21, 2024 02:06 PM [facility] BASIC METABOLIC PANEL (non-fasting) Specimen Type: SERUM No comment entered. Ordering Provider: YAHAIRA ESCALANTE Report Released Date/Time: April 17, 2024 01:15 PM Reporting Lab: [address] [address] Performing Lab: [address] [address] UREA NITROGEN 15 mg/dL 7-25 GLUCOSE 140 mg/dL H 65-100 SODIUM 135 mmol/L 135-145 POTASSIUM 3.9 mmol/L 3.5-5.0 CHLORIDE 100 mmol/L 100-110 CO2 26 meq/L 20-30 CREATININE, Serum 0.69 mg/dL 0.50-1.40 eGFR(CKD-EPI 2020) >90 mL/min >60 Apr 21, 2024 02:06 PM [facility] CBC Specimen Type: BLOOD No comment entered. Ordering Provider: YAHAIRA ESCALANTE Report Released Date/Time: April 17, 2024 01:15 PM Reporting Lab: [address] [address] Performing Lab: [address] [address] WBC 9.47 10*3/uL 4.50-11.00 RBC 4.60 10*6/uL 3.93-5.16 HGB 13.9 g/dL 12-15.2 HCT 42.2 36.6-45.6 MCV 91.7 fL 82-99 MCHC 32.9 g/dL 30.8-35.1 PLT 244 10*3/uL 140-360 RDW-CV 12.4 12.0-16.0 MCH 30.2 pg 26.2-32.6 Advance Directives: All historical and current Section [...] Sep 08, 2009 ADVANCE DIRECTIVE CHOLO CONRAD [facility] Encounter Notes: All associated encounter notes This section contains the clinical notes associated to the Encounter. Date/Time Encounter Note(s) Provider Source April 17, 2024 07:38 AM TELEIMAGING REPORT : LOCAL TITLE: CONSULT-TELEDERMATOLOGY IMAGING REPORT STANDARD TITLE: TELEIMAGING REPORT DATE OF NOTE: APRIL 17, 2024@07:38 ENTRY DATE: APRIL 17, 2024@07:38:23 AUTHOR: EDWARD MICHAEL EXP COSIGNER: URGENCY: STATUS: COMPLETED HISTORY: 63-year-old woman reports a 6-month history of a hyperpigmented spot on the right abdomen that is itchy. She has been using triamcinolone 0.1% ointment and reports that it is helping. No history of skin cancers or other skin problems. OVERALL CONSULT/IMAGE QUALITY: Fully satisfactory EXAM: Photos show a 5 cm pink scaly patch on the right abdomen that has a hyperpigmented 2-1/2 cm annular patch within it. IMPRESSION BASED ON IMAGES AND INFORMATION REVIEWED: PROBLEM A: Unable to assess using Teledermatology Imaging difficult to tell using photographs whether the hyperpigmented area is inflammatory in nature versus melanocytic. RECOMMENDATIONS FOR REFERRING PROVIDER: PROBLEM A: Medication: Continue triamcinolone for itch Biopsy: Rule out lichen simplex versus fixed drug versus melanocytic lesion. RECOMMENDED FOLLOW-UP: Consult to Dermatology clinic for follow up SKIP: Next available Cumulative time of review and management: 5 minutes or more /rajeev/ Edward Michael PA-C Dermatology Signed: 04/17/2024 07:54 [facility]
--- OUTSIDE RECORDS SUMMARY | 2024-12-31 15:32 | XMS_ITS | Encounter Summary ---
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 Name Role Phone YAHAIRA ESCALANTE Primary [...] Bueno's Name Patient's Relationship to Policy Bueno [facility] Feb 28, 2004 Jul 01, 2026 [id number] ANGELY NOLASCO PATIENT [facility] Feb 28, 2004 Jul 01, 2026 [facility] [id number] ANGELY NOLASCO PATIENT [facility] W/OME DICAR E Feb 28, 2004 Jul 01, 2026 [facility] [id number] ANGELY NOLASCO PATIENT [facility] Feb 28, 2004 Jul 01, 2026 [id number] KIKO NOLASCO JR SPOUSE [facility] Feb 28, 2004 Jul 01, 2026 [id number] ANGELY NOLASCO PATIENT [facility] Feb 28, 2004 Jul 01, 2026 [facility] [id number] [phone] ANGELY NOLASCO PATIENT [facility] Jun 18, 2015 Jul 01, 2026 [facility] [id number] ANGELY NOLASCO PATIENT [facility] Jan 19, 2013 Jul 01, 2026 [facility] [id number] ANGELY NOLASCO PATIENT [facility] Sep 22, 2012 Jul 01, 2026 [facility] [id number] KIKO NOLASCO JR SPOUSE [facility] Sep 22, 2012 Jul 01, 2026 [facility] [id number] ANGELY NOLASCO PATIENT [facility] Sep 22, 2012 Jul 01, 2026 [facility] [id number] ANGELY NOLASCO PATIENT [facility] Feb 28, 2004 Jul 01, 2026 [facility] [id number] ANGELY NOLASCO PATIENT [facility] Jun 18, 2015 [facility] [id number] ANGELY NOLASCO PATIENT Selected Encounter This section includes the information on record at [place] for the Encounter. Date/Time Encounter Type Encounter Description Reason Provider Source Sep 14, 2024 02:00 PM OFFICE O/P EST LOW 20 MIN PRIMARY CARE/MEDICINE ICD-10-CM Z23 Encounter for immunization YAHAIRA ESCALANTE [facility] Encounter Template Text not used by PA Assessments - Encounter Diagnoses This section includes the primary and secondary diagnoses documented for the Encounter. Date/Time Primary/Secondary Diagnosis Diagnosis Name Provider Source Sep 14, 2024 02:36 PM PRIMARY Encounter for immunization YAHAIRA ESCALANTE PA CNT [facility] [place] [facility] Sep 14, 2024 02:36 PM SECONDARY Benign neoplasm of meninges, unspecified AVAYAHAIRA FUNG PA CNTR [facility] [place] [facility] Sep 14, 2024 02:36 PM SECONDARY Essential (primary) hypertension AVA,YAHAIRA RADHA [facility] Sep 14, 2024 02:36 PM SECONDARY Type 2 diabetes mellitus without complications YAHAIRA ESCALANTE [facility] Plan of Treatment: Future Appointments (+ 6 months) and Future Tests (+/- 45 days) The Plan of Treatment section includes future care activities for the patient from all [facility] This section includes future appointments and future orders which are active, pending or scheduled. Future Appointments This section includes appointments that were scheduled to occur 6 months from the date of the Encounter, up to a maximum of 20 appointments. The data comes from all [place] treatment facilities. Appointment Date/Time Appointment Type Appointme nt Facility Name Sep 15, 2024 11:30 AM AMBULATORY - MEDICINE [facility] Active, Pending, and Scheduled Orders This section includes a listing of several types of active, pending, and scheduled orders, including clinic medications orders, diagnostic test orders, procedure orders and consult orders; where the start date of the order is 45 days before the date of the Encounter or 45 days after the date of theEncounter. The data comes from all [place] treatment facilities. Test Date/Time Test Type Test Details Facility Name Sep 14, 2024 02:23 PM Consult Order ENDOCRINE/ [facility] OUTPT Cons Splitting Machine Operator's Choice [facility] Lab Results: +/- 30 days of the encounter This section includes the Chemistry and Hematology Lab Results on record with PA for the patient. Radiology Reports and Pathology Reports are provided separately, in subsequent sections. Lab Results This section contains the Chemistry/Hematology Results that were resulted 30 days before or 30 daysafter the date of the Encounter. Date/Time Source Result Type Result - Unit Interpretation Reference Range Comment Sep 14, 2024 02:48 PM [facility] HEMOGLOBIN A1C PANEL Specimen Type: BLOOD Comment: [...] Sep 14, 2024 02:24 PM Reporting Lab: [facility] [address] [facility] [address] Performing Lab: [address] [address] HEMOGLOBIN A1C 8.1 H 4.0-5.6 Sep 14, 2024 02:48 PM [facility] MICROALBUMIN CREATININE RATIO PANEL Specimen Type: URINE No comment entered. Ordering Provider: YAHAIRA ESCALANTE Report Released Date/Time: Sep 14, 2024 02:25 PM Reporting Lab: [address] [address] Performing Lab: [address] [address] MICROALBUMIN/C REATININE RATIO canc mg/g 0-29.9 MICROALBUMIN,Q UANTITATIVE < 0.5 mg/dL RR UNAVAIL CREATININE URINE 27.03 mg/dL Vital Signs: All taken on the encounter date This section contains inpatient and outpatient Vital Signs collected on the date of the Encounter. Date/Time Temperature Pulse Blood Pressure Respiratory Rate SP02 Pain Height Weight Body Mass Index Source Sep 14, 2024 02:16 PM 98.1 81 117/76 14 96 0 164.7 31 [facility] Immunizations: All administered on the encounter date This section contains immunizations associated to the Encounter. Immunization Series Date Issued Reaction Comments INFLUENZA, SPLIT VIRUS, TRIVALENT, PF Sep 14 024 Social History: Smoking Status (Most current) and Tobacco Use (All prior to encounter date) This section includes the most current, and the historical, smoking and tobacco- related health factors from the [place] facility where the Encounter took place. Current Smoking Status This section includes the most current smoking, or tobacco-related health factor, from the [place] facility where the Encounter took place. Date/Time Current Smoking Status Comment [facility] Dec 09, 2023 01:00 PM VA-TOBACCO NEVER USED [facility] Tobacco Use History This section includes a history of the smoking, or tobacco-related health factors, that were collected on or before the date of the Encounter. The data comes from the [place] facility where the Encounter took place. Date/Time Smoking Status/Tobacco Use Comment F acility Jan 04, 2023 03:00 PM VA-TOBACCO NEVER USED PA [facility] [place] [facility] Feb 20, 2021 11:30 AM VA-TOBACCO NEVER USED VA [facility] [place] [facility] Feb 18, 2020 09:39 AM VA-TOBACCO NEVER USED VA [facility] [place] [facility] Dec 02, 2018 03:30 PM VA-TOBACCO FORMER USER PA [facility] [place] [facility] Dec 02, 2018 03:30 PM VA-TOBACCO QUIT 15 YRS OR MORE PA [facility] [place] [facility] Feb 28, 2018 02:37 PM QUIT TOBACCO USE > 7 YEARS AGO PA [facility] [place] [facility] Nov 23, 2016 10:49 AM LIFETIME NON-TOBACCO USER [facility] [place] [facility] April 10, 2005 09:23 AM LIFETIME NON-SMOKER PA [facility] [place] [facility] April 10, 2005 09:23 AM LIFETIME NON-TOBACCO USER [facility] Advance Directives: All historical and current Section Date Range: From patient's date of to the date document was created. This section includes ALL of a patient's completed or amended [place] Advance and Rescinded Directives. The entries below indicate that a directive exists for the patient, but an actual copy is not included with this document. The data comes from all [place] facilities. Date Advance Directives Provider Source Sep 08, 2009 ADVANCE DIRECTIVE [facility] [employer] Encounter Notes: All associated encounter notes This section contains the clinical notes associated to the Encounter. Date/Time Encounter Note(s) Provider Source Sep 15, 2024 05:54 PM LETTERS: LOCAL TITLE: PATIENT LETTER (B) STANDARD TITLE: LETTERS DATE OF NOTE: SEP 15, 2024@17:54 ENTRY DATE: SEP 15, 2024@17:54:31 AUTHOR: YAHAIRA ESCALANTE EXP COSIGNER: URGENCY: STATUS: COMPLETED [facility] Toll Free Number Telephone Assistance can be reached at extension [phone] ANGELY NOLASCO [facility] [phone] SEP 15, 2024 Dear Mrs. Nolasco, Below are the results of your recent blood work. Your Hgb A1C has increased to 8.1% from 7.6% this past spring. This is your Diabetes screen and is elevated. Someone from endocrinology will call you to schedule an appointment to help get your diabetes in tighter control. Tips for a healthy lifestyle: Eat a low-carbohydrate diet. Minimize sugars, refined carbs, and alcohol. Maintain a healthy weight. Perform high-intensity exercise if you can do so safely. Exercise regularly: Aim for at least 30 minutes of physical activity on most days of the week. Avoid sugar and refined carbohydrates. Consider avoiding saturated fats. Increase your intake of fiber-rich plants. MICROALB/CR RATIO: canc MICROALBUMIN URINE: < 0.5 CREATININE URINE: 27.03 HGB A1C (WR): 8.1 H GLUCOSE: 140 H UREA NITROGEN: 15 SODIUM: 135 POTASSIUM: 3.9 CHLORIDE: 100 CO2: 26 CREATININE-EGFR: 0.69 eGFR CKD-EPI 2020: >90 HGB A1C (WR): 7.6 H WBC: 9.47 RBC: 4.60 HGB: 13.9 HCT: 42.2 MCV: 91.7 MCHC: 32.9 RDW: 12.4 PLT: 244 MCH: 30.2 Below are a listing of upcoming appointments you have scheduled at [facility]: 01/08/2025 14:30 CWM/SO/MHC/ZHANG 07/01/2025 13:00 NHM/OPTOMETRY/ORTIZ 09/20/2025 13:30 CWM/NO/PACT 5 If you have any questions please let me know otherwise see you at your next scheduled visit. Sincerely, RUBI Irvin Family Nurse Practitioner [facility] PA[facility] 5 [facility] [address] [address] [place] [address] [phone] [facility] [address] [address] [place] [address] [phone] YAHAIRA ESCALANTE [facility] Sep 14, 2024 02:18 PM PREVENTIVE MEDICINE NURSING NOTE: LOCAL TITLE: CLINICAL REMINDERS/NURSING STANDARD TITLE: PREVENTIVE MEDICINE NURSING NOTE DATE OF NOTE: SEP 14, 2024@14:18 ENTRY DATE: SEP 14, 2024@14:18:43 AUTHOR: SOCORRO GRANT EXP COSIGNER: URGENCY: STATUS: COMPLETED Influenza Immunization: Influenza, Trivalent, Preservative Free (Fluarix-Syringe) Administered: INFLUENZA, SPLIT VIRUS, TRIVALENT, PF Date Administered: Sep 14, 2024 14:00 Telecommunications Facility Examiner: Podcast Ready Lot: [id number] Exp Date: May 17, 2025 [facility]: [phone] Admin Route/Site: INTRAMUSCULAR/RIGHT DELTOID Dosage: 0.5mL Vaccine Information Statement(s): INFLUENZA(FLU) VACC(INACTIVATED OR RECOMBINANT)VIS Jun 23, 2021 (TURKISH) Order By: Policy Administered By: Socorro Grant The Influenza Vaccine Information Statement (VIS) was reviewed with the patient/caregiver which lists the benefits and risks of the vaccine and the risks of not receiving the Influenza vaccine. The patient/caregiver denied any prior severe reaction to this vaccine or its components or a severe allergic reaction, such as anaphylaxis, to any vaccine or any injectable therapy. The patient/caregiver gave verbal consent to receive the vaccine. COVID-19 Immunization: Refused Moderna Monovalent COVID-19 vaccine Immunization: COVID-19 (MODERNA), MRNA, LNP-S, PF, 50 MCG/0.5 ML (AGES 12+ YEARS) Refusal Reason: PATIENT DECISION Patient refuses all immunization(s) in the COVID-19 group Date Documented: 09/14/24 14:20 /rajeev/ SOCORRO GRANT, MSN, RN, CNL PRIMARY CARE TEAM NURSE Signed: 09/14/2024 14:21 SOCORRO GRANT PA CNTRL [facility] Sep 14, 2024 02:09 PM PRIMARY CARE NURSE PRACTITIONER OUTPATIENT NOTE: LOCAL TITLE: NURSE PRACTITIONER OUTPATIENT NOTE STANDARD TITLE: PRIMARY CARE NURSE PRACTITIONER OUTPATIENT NOTE DATE OF NOTE: SEP 14, 2024@14:09 ENTRY DATE: SEP 14, 2024@14:09:39 AUTHOR: YAHAIRA ESCALANTE EXP COSIGNER: URGENCY: STATUS: COMPLETED Chief complaint: Pt is a 64 who comes in for follow up of medical problems as noted below. Angely is [facility] and knows that she will need to look for new PCP in community once she turns 66 and is on medicare. HPI: HTN Controlled on Atenolol (takes at night) HCTZ Losartan and Amlodipine Type II DM A1C was 9.0% she has since started Ozempic with help from CPP and also on low dose empagliflozin has made great dietary changes She can no longer see [facility] patients so I will refer her to Endocrine Meningioma MRI ordered through [facility] she has appt on oct 28 Colorectal CA screening Fit card positive a few years ago never went. She is [facility] and per CC team not covered for CC referral but I have written RX and she will take to [facility] has ongoing painful varicose veins at [facility], does not feel better when using compression stockings. Interested in surgical intervention she had referral but never went would like repeated Has appt with mammogram at [facility] used . PMH: Active problems - Computerized Problem List is the source for the followin. Gastroesophageal reflux disease 2. Allergic rhinitis 3. Fibromyalgia 4. Laboratory test result abnormal [place] 1: 160 speckled and homogeneous 5. Shingles 6. Intracranial meningioma 12/16/14 6mm and 3mm - repeat MRI 1 year stable on MRI 01/31, repeat ordered for [facility] 7. Sleep apnea 8. Adjustment disorder with anxious mood (SNOMED CT 00706332) 9. Hydradenitis * 10. Type 2 diabetes mellitus (SNOMED CT 04809399) 11. Insomnia * 12. Hysterectomy * 13. Dizziness * 14. Somatization Disorder 15. Obesity (SNOMED CT 309998257) 16. Headache * 17. Hypertension (SNOMED CT 58519687) 18. Hyperlipidemia (SNOMED CT 11965750) 19. CONRADO - Generalized anxiety disorder (SNOMED CT 79935179) reviewed reviewed reviewed reviewed Reviewed 20. Depression (SNOMED CT 08852958) denies recetn depression reviewed reviewed reviewed reviewed Reviewed Allergies: OMEPRAZOLE, DILAUDID, MORPHINE, ASPIRIN RELATED MEDICATIONS The following VA and Non-VA meds were reconciled with patient: Active and Recently Outpatient Medications (excluding Supplies): Active Outpatient Medications Status 1) AMLODIPINE [...] ONE CAPSULE BY MOUTH ACTIVE TWICE DAILY DEPRESSION 5) EMPAGLIFLOZIN 10MG TAB TAKE ONE TABLET BY MOUTH ONCE ACTIVE (S) DAILY FOR TYPE 2 DIABETES MELLITUS 6) HYDROCHLOROTHIAZIDE 25MG TAB TAKE ONE TABLET BY MOUTH ACTIVE (S) DAILY TO PREVENT FLUID/CONTROL BLOOD PRESSURE 7) HYDROXYZINE HCL 10MG TAB TAKE ONE TABLET BY MOUTH AT ACTIVE BEDTIME NEEDED FOR INSOMNIA 8) LOSARTAN 100MG TAB TAKE ONE TABLET BY MOUTH ONCE ACTIVE DAILY FOR BLOOD PRESSURE/HEART 9) OMEPRAZOLE 20MG EC CAP TAKE ONE CAPSULE BY MOUTH ACTIVE EVERY MORNING 30 MINUTES BEFORE BREAKFAST FOR REFLUX 10) SEMAGLUTIDE 1MG/0.75ML INJ PEN 3ML INJECT 1MG ACTIVE SUBCUTANEOUSLY ONCE A WEEK Active Non-VA Medications Status 1) Non-VA ARTIFICIAL [...] Non-VA MULTIVITAMIN W/MINERAL TAB BY MOUTH ACTIVE 20 Total Medications Allergies: OMEPRAZOLE, DILAUDID, MORPHINE, ASPIRIN RELATED MEDICATIONS VITAL SIGNS: 98.1 F [36.7 C] (09/14/2024 14:16) 81 (09/14/2024 14:16) 14 (09/14/2024 14:16) 117/76 (09/14/2024 14:16) 0 (09/14/2024 14:16) 61 in [154.9 cm] (12/09/2023 13:32) 164.7 lb [74.71 kg] (09/14/2024 14:16) BMI: 31.2 ROS: General: no fever, no unexplained weight loss or gain CV: denies CP, SOB, palpitations Lung: denies Dyspnea or wheezing Ext: denies edema (+) painful varicostities Psych: denies SI Neuro: denies dizziness, falls PHYSICAL EXAM General: No acute distress, speech is clear, forming sentences. CV: S1S2, RRR, no m/r/g Lung: CTAB, no wheeze, rhonchi, or crackles no audible cough Ext: no edema, warm and well perfused bilat has large varicose veins on left lower and upper leg Neuro: CN 2-12 grossly intact Psych: A&Ox3, appropriate mood and affect LAB RESULTS LAST 1440 HRS - NONE FOUND Future Clinic Visits 01/08/2025 14:30 CWM/SO/SANGITA/LEATHA ASSESSMENT AND PLAN: #HTN -Controlled -Cont Atenolol HCTZ Losartan and Amlodipine #Type II DM A1C was 9.0% she has since started Ozempic with help from CPP and also on low dose empagliflozin has made great dietary changes She can no longer see [facility] patients so I will refer her to Endocrine #Meningioma MRI ordered through [facility] she has appt on oct 28 #Colorectal CA screening Fit card positive a few years ago never went. She is [facility] and per CC team not covered for CC referral but I have written RX and she will take to [facility] varicose veins at [facility]--painful -referral to [place] Has appt with mammogram at [facility]. Return to clinic to see me in 12 months, RTC sooner if needed. Clinical Reminders Diagnostic Colonoscopy: (+) FIT/FOBT identified. A diagnostic Colonoscopy is due based on information available to this reminder. A colonoscopy is currently scheduled or in process of being scheduled. /rajeev/ RUBI MCMILLAN Nurse Practitioner Signed: 09/14/2024 14:36 Y[facility]HAIAR ESCALANTE [facility]
--- OUTSIDE RECORDS SUMMARY | 2024-12-31 15:32 | XMS_ITS | Encounter Summary ---
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 Feb 28, 2004 Jul 01, 2026 [facility] [id number] ЕЛЕНА JORDAN PATIENT W/OME DICAR E Feb 28, 2004 Jul 01, 2026 [facility] [id number] 88 ЕЛЕНА JORDAN PATIENT [facility] Feb 28, 2004 Jul 01, 2026 [id number] [phone] KIKO JORDAN JR SPOUSE [facility] Feb 28, 2004 Jul 01, 2026 [id number] [phone] ЕЛЕНА JORDAN PATIENT [facility] Feb 28, 2004 Jul 01, 2026 [facility] [id number] 88 ЕЛЕНА JORDAN PATIENT [facility] Jun 18, 2015 Jul 01, 2026 [facility] [id number] [phone] ЕЛЕНА JORDAN PATIENT [facility] Jan 19, 2013 Jul 01, 2026 [facility] [id number] [phone] 7 ЕЛЕНА JORDAN PATIENT [facility] Sep 22, 2012 Jul 01, 2026 [facility] [id number] [phone] KIKO JORDAN JR SPOUSE [facility] Sep 22, 2012 Jul 01, 2026 [facility] [id number] [phone] ЕЛЕНА JORDAN PATIENT [facility] Sep 22, 2012 Jul 01, 2026 [facility] [id number] [phone] 3 ЕЛЕНА JORDAN PATIENT [facility] Feb 28, 2004 Jul 01, 2026 [facility] [id number] 88 ЕЛЕНА JORDAN PATIENT [facility]/SANDRA MARAN [facility] Jun 18, 2015 [facility] [id number] [phone] ЕЛЕНА JORDAN PATIENT Selected Encounter This section includes the information on record at [place] for the Encounter. Date/Time Encounter Type Encounter Description Reason Pro vider Source Jul 15, 2024 02:59 PM Outpatient Encounter ADMIN PAT ACTIVTIES (MASNONCT) IHE Encounter Template Text not used by [place] Plan of Treatment: Future Appointments (+ 6 months) and Future Tests (+/- 45 days) The Plan of Treatment section includes future care activities for the [facility] [place] [facility] This section includes future appointments and future orders which are active, pending or scheduled. Future Appointments This section includes appointments that were scheduled to occur 6 months from the date of the Encounter, up to a maximum of 20 appointments. The data comes from all [place] treatment facilities. Appointment Date/Time Appointment Type Appointme nt Facility Name Sep 04, 2024 11:30 AM AMBULATORY - PSYCHIATRY [facility] Sep 14, 2024 02:00 PM AMBULATORY - MEDICINE [place] [facility] Sep 15, 2024 11:30 AM AMBULATORY - MEDICINE [facility] N[facility] [place] [facility] Active, Pending, and Scheduled Orders This section includes a listing of several types of active, pending, and scheduled orders, including clinic medications orders, diagnostic test orders, procedure orders and consult orders; where the start date of the order is 45 days before the date of the Encounter or 45 days after the date of theEncounter. The data comes from all [place] treatment facilities. Test Date/Time Test Type Test Details Facility Name Jun 02, 2024 09:21 PM Consult Order PSYCHOTHERAPY SOPC OUTPT Cons Manager [facility] Jun 18, 2024 12:00 AM Laboratory - Chemistry Order HEMOGLOBIN A1C PANEL BLOOD (LAV-BLOOD) [place] [facility] Social History: Smoking Status (Most current) and Tobacco Use (All prior to encounter date) This section includes the most current, and the historical, smoking and tobacco- related health factors from the [place] facility where the Encounter took place. Current Smoking Status This section includes the most current smoking, or tobacco-related health factor, from the [place] facility where the Encounter took place. Date/Time Current Smoking Status Comment [facility] Dec 09, 2023 01:00 PM VA-TOBACCO NEVER USED [place] [facility] [facility] Tobacco Use History This section includes a history of the smoking, or tobacco-related health factors, that were collected on or before the date of the Encounter. The data comes from the [place] facility where the Encounter took place. Date/Time Smoking Status/Tobacco Use Comment F acility Jan 04, 2023 03:00 PM VA-TOBACCO NEVER USED VA [facility] [place] [facility] Feb 20, 2021 11:30 AM VA-TOBACCO NEVER USED VA [facility] [place] [facility] Feb 18, 2020 09:39 AM VA-TOBACCO NEVER USED VA [facility] [place] [facility] Dec 02, 2018 03:30 PM VA-TOBACCO FORMER USER [place] [facility] [place] [facility] Dec 02, 2018 03:30 PM VA-TOBACCO QUIT 15 YRS OR MORE [place] [facility] [place] [facility] Feb 28, 2018 02:37 PM QUIT TOBACCO USE > 7 YEARS AGO [facility] Nov 23, 2016 10:49 AM LIFETIME NON-TOBACCO USER [facility] April 10, 2005 09:23 AM LIFETIME NON-SMOKER [facility] April 10, 2005 09:23 AM LIFETIME NON-TOBACCO USER [facility] Advance Directives: All historical and current Section Date Range: From patient's date of to the date document was created. This section includes ALL of a patient's completed or amended [place] Advance and Rescinded Directives. The entries below indicate that a directive exists for the patient, but an actual copy is not included with this document. The data comes from all [place] facilities. Date Advance Directives Provider Source Sep 08, 2009 ADVANCE DIRECTIVE ANAMARIAANATOLYNadja Travis [facility] Encounter Notes: All associated encounter notes This section contains the clinical notes associated to the Encounter. Date/Time Encounter Note(s) Provider Source Jul 15, 2024 02:59 PM PHARMACY NOTE: LOCAL TITLE: PHARMACY CUSTOMER CARE MEDICATION RENEWAL STANDARD TITLE: PHARMACY NOTE DATE OF NOTE: JUL 15, 2024@14:59 ENTRY DATE: JUL 15, 2024@14:59:41 AUTHOR: BASHIR ROBLES COSIGNER: URGENCY: STATUS: COMPLETED Date: Jun Division: [facility] referred by Pharmacy Call Center for medication renewal: Non-controlled/maintenan ce medication Medications requested: [id number] AMLODIPINE BESYLATE 5MG TAB Defer to primary care provider To be mailed . Please review and renew if appropriate. *This note was generated by [facility]/[place] Pharm[facility] Customer Care. If you have any questions or need assistance, do not contact this author. Please refer all questions to your local, on-site pharmacy departments. /rajeev/ BASHIR ROBLES [employer] Installer, [place]/Pharmacy Customer Care Signed: 07/15/2024 15:00 Receipt Acknowledged By: 07/16/2024 13:54 /rajeev/ RUBI MCMILLAN Nurse Practitioner 07/15/2024 15:02 /rajeev/ LEVI BETANCUR, MSN, RN, CNL PRIMARY CARE TEAM NURSE BASHIR ROBLES [facility]
--- OUTSIDE RECORDS SUMMARY | 2024-12-31 15:32 | XMS_ITS | Encounter Summary ---
Author Name [place] Organization [place] Address [address] [place] [address] Care Team Providers Care Space Planner Name Role Phone YAHAIRA ESCALANTE Primary Care [...] Bueno's Name Patient's Relationship to Policy Bueno [facility] Feb 28, 2004 Jul 01, 2026 [facility] [id number] ЕЛЕНА JORDAN PATIENT W/OME DICAR E Feb 28, 2004 Jul 01, 2026 [facility] [id number] 88 ЕЛЕНА JORDAN PATIENT [facility] Feb 28, 2004 Jul 01, 2026 [id number] [phone] KIKO JORDAN JR SPOUSE [facility] Feb 28, 2004 Jul 01, 2026 [id number] [phone] ЕЛЕНА JORDAN PATIENT [facility] Feb 28, 2004 Jul 01, 2026 [id number] [phone] ЕЛЕНА JORDAN PATIENT [facility] Feb 28, 2004 Jul 01, 2026 [facility] [id number] ЕЛЕНА JORDAN PATIENT [facility] Jun 18, 2015 Jul 01, 2026 [facility] [id number] [phone] 7 ЕЛЕНА JORDAN PATIENT [facility] Jan 19, 2013 Jul 01, 2026 [facility] [id number] [phone] 7 ЕЛЕНА JORDAN PATIENT [facility] Sep 22, 2012 Jul 01, 2026 [facility] [id number] [phone] ЕЛЕНА JORDAN PATIENT [facility] Sep 22, 2012 Jul 01, 2026 [facility] [id number] [phone] ЕЛЕНА JORDAN PATIENT [facility] Sep 22, 2012 Jul 01, 2026 [facility] [id number] [phone] KIKO JORDAN JR SPOUSE [facility] Feb 28, 2004 Jul 01, 2026 [facility] [id number] [phone] ЕЛЕНА JORDAN PATIENT [facility]SANDRA MARAN [facility] Jun 18, 2015 [facility] [id number] 88 ЕЛЕНА JORDAN PATIENT Selected Encounter This section includes the information on record at [place] for the Encounter. Date/Time Encounter Type Encounter Description Reason Pro vider Source Dec 14, 2024 11:40 AM Outpatient Encounter ADMIN PAT ACTIVTIES (MASNONCT) IHE Encounter Template Text not used by [place] Social History: Smoking Status (Most current) and Tobacco Use (All prior to encounter date) This section includes the most current, and the historical, smoking and tobacco- related health factors from the [place] facility where the Encounter took place. Current Smoking Status This section includes the most current smoking, or tobacco-related health factor, from the [place] facility where the Encounter took place. Date/Time Current Smoking Status Seymour romero Dec 09, 2023 01:00 PM VA-TOBACCO NEVER USED [place] [facility] Tobacco Use History This section includes a history of the smoking, or tobacco-related health factors, that were collected on or before the date of the Encounter. The data comes from the [place] facility where the Encounter took place. Date/Time Smoking Status/Tobacco Use Comment Chung doss Jan 04, 2023 03:00 PM VA-TOBACCO NEVER USED [place] [facility] Feb 20, 2021 11:30 AM VA-TOBACCO NEVER USED [place] [facility] [place] [facility] Feb 18, 2020 09:39 AM VA-TOBACCO NEVER USED [place] [facility] [place] [facility] Dec 02, 2018 03:30 PM VA-TOBACCO FORMER USER [place] [facility] Dec 02, 2018 03:30 PM VA-TOBACCO QUIT 15 YRS OR MORE [place] [facility] Feb 28, 2018 02:37 PM QUIT TOBACCO USE > 7 YEARS AGO [place] [facility] Nov 23, 2016 10:49 AM LIFETIME NON-TOBACCO USER [place] [facility] April 10, 2005 09:23 AM LIFETIME NON-SMOKER [place] [facility] April 10, 2005 09:23 AM [facility] Advance Directives: All historical and current Section Date Range: From patient's date of to the date document was created. This section includes ALL of a patient's completed or amended [place] Advance and Rescinded Directives. The entries below indicate that a directive exists for the patient, but an actual copy is not included with this document. The data comes from all [place] facilities. Date Advance Directives Provider Source Sep 08, 2009 ADVANCE DIRECTIVE CHOLO CONRAD [facility] Encounter Notes: All associated encounter notes This section contains the clinical notes associated to the Encounter. Date/Time Encounter Note(s) Provider Source Dec 14, 2024 11:40 AM ADMINISTRATIVE NOTE: LOCAL TITLE: CCC: SCHEDULING ADMINISTRATION STANDARD TITLE: ADMINISTRATIVE NOTE DATE OF NOTE: DEC 14, 2024@11:40:33 ENTRY DATE: DEC 14, 2024@11:40:34 AUTHOR: LORENA SUMMERS COSIGNER: URGENCY: STATUS: COMPLETED CCC: SCHEDULING ADMINISTRATION Has ADDENDA Patient Demographics Patient Name: ЕЛЕНА JORDAN Patient Primary Phone: [phone] Patient Primary Address: [place] [address] Patient : 1960 Patient Age: 64 Current Location: [facility] Call Back Number: [phone] Caller/Recipient Relation to Patient: Caregiver Caller Name: Angela Administrative Administrative Note Reason: Lab / Imaging Results Administrative Note Comments: [facility] calling with positive biopsy report for this . Pact should have the results. Angela [phone] IMPORTANT: This note was created by [facility] Clinical Contact Center staff. Please do not alert the staff member by adding them as a signer for future communications. Alerts are not monitored by this user. /es/ LORENA SUMMERS VISN 1 [facility] Signed: 12/14/2024 11:40 Receipt Acknowledged By: 12/14/2024 14:51 /es/ DENNY MCCLAIN REGISTERED NURSE 12/14/2024 16:11 /es/ Kathie El RN Primary Care Staff Nurse 12/14/2024 ADDENDUM STATUS: COMPLETED Will try to get records from [facility] then will reach out to [facility] to see what she would qualify for surgery ([facility] or [facility] vs using her own insurance) I dont think she can use [facility] with [facility] will clarify. /es/ RUBI MCMILLAN Nurse Practitioner Signed: 12/14/2024 12:01 LORENA SUMMERS [place] [facility]
--- OUTSIDE RECORDS SUMMARY | 2024-12-31 15:33 | XMS_ITS | Encounter Summary ---
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 Name Role Phone YAHAIRA ESCALANTE Primary Care [...] Bueno's Name Patient's Relationship to Policy Bueno [facility] Feb 28, 2004 Jul 01, 2026 [facility] [id number] ЕЛЕНА JORDAN PATIENT W/OME DICAR E Feb 28, 2004 Jul 01, 2026 [facility] [id number] [phone] CHANDANCASTRO ЕЛЕНА PATIENT [facility] Feb 28, 2004 Jul 01, 2026 [id number] KIKO JORDAN JR SPOUSE [facility] Feb 28, 2004 Jul 01, 2026 [id number] 88 ЕЛЕНА JORDAN PATIENT [facility] Feb 28, 2004 Jul 01, 2026 [id number] 88 ЕЛЕНА JORDAN PATIENT [facility] Feb 28, 2004 Jul 01, 2026 [facility] [id number] 88 ЕЛЕНА JORDAN PATIENT [facility] Jun 18, 2015 Jul 01, 2026 [facility] [id number] 88 SUMMER JORDANTA PATIENT [facility] Jan 19, 2013 Jul 01, 2026 [facility] [id number] 88 SUMMER JORDANTA PATIENT [facility] Sep 22, 2012 Jul 01, 2026 [facility] [id number] 88 SUMMER JORDANTA PATIENT [facility] Sep 22, 2012 Jul 01, 2026 [facility] [id number] KIKO JORDAN JR SPOUSE [facility] Sep 22, 2012 Jul 01, 2026 [facility] [id number] 88 ЕЛЕНА JORDAN PATIENT [facility] Feb 28, 2004 Jul 01, 2026 [facility] [id number] 88 ЕЛЕНА JORDAN PATIENT [facility]SANDRA MARAN [facility] Jun 18, 2015 [facility] [id number] [phone] 7 ЕЛЕНА JORDAN PATIENT Selected Encounter This section includes the information on record at [place] for the Encounter. Date/Time Encounter Type Encounter Description Reason Provider Source Mar 03, 2024 02:30 PM OFFICE O/P EST MOD 30 MIN [facility] - IND ICD-10-CM F33.8 Other recurrent depressive disorders KENDALL ZHANG Ana Encounter Template Text not used by [place] Assessments - Encounter Diagnoses This section includes the primary and secondary diagnoses documented for the Encounter. Date/Time Primary/Secondary Diagnosis Diagnosis Name Provider Source Mar 03, 2024 02:55 PM PRIMARY Other recurrent depressive disorders AZAEL ZHANG Mar 03, 2024 02:55 PM SECONDARY Generalized anxiety disorder AZAEL ZHANG Plan of Treatment: Future Appointments (+ 6 months) and Future Tests (+/- 45 days) The Plan of Treatment section includes future care activities for the patient from all [place] treatmentfacilities. This section includes future appointments and future orders which are active, pending or scheduled. Future Appointments This section includes appointments that were scheduled to occur 6 months from the date of the Encounter, up to a maximum of 20 appointments. The data comes from all [facility]. Appointment Date/Time Appointment Type Appointme nt Facility Name Mar 05, 2024 02:30 PM AMBULATORY - MEDICINE [place] [facility] March 18, 2024 02:30 PM AMBULATORY - MEDICINE [place] [facility] April 07, 2024 03:00 PM AMBULATORY - MEDICINE [place] [facility] April 14, 2024 02:00 PM AMBULATORY - NONE [place] [place] [facility] April 15, 2024 01:00 PM AMBULATORY - MEDICINE DE [place] [facility] April 16, 2024 02:00 PM AMBULATORY - NONE [place] [place] [facility] Apr 21, 2024 01:30 PM AMBULATORY - MEDICINE [place] [facility] Apr 28, 2024 10:00 AM AMBULATORY - PSYCHIATRY [facility] May 05, 2024 03:00 PM AMBULATORY - MEDICINE [place] [facility] Jun 02, 2024 02:30 PM AMBULATORY - PSYCHIATRY [facility] Jun 04, 2024 03:30 PM AMBULATORY - MEDICINE [place] [facility] Jul 08, 2024 03:00 PM AMBULATORY - PSYCHIATRY [facility] Jul 09, 2024 01:30 PM AMBULATORY - SURGERY [facility] Active, Pending, and Scheduled Orders This section includes a listing of several types of active, pending, and scheduled orders, including clinic medications orders, diagnostic test orders, procedure orders and consult orders; where the start date of the order is 45 days before the date of the Encounter or 45 days after the date of theEncounter. The data comes from all [facility]. Test Date/Time Test Type Test Details Facility Name March 18, 2024 12:00 AM Laboratory - Chemistry Order HEMOGLOBIN A1C PANEL BLOOD (LAV-BLOOD) [facility] [place] [facility] Social History: Smoking Status (Most current) and Tobacco Use (All prior to encounter date) This section includes the most current, and the historical, smoking and tobacco- related health factors from the [place] facility where the Encounter took place. Current Smoking Status This section includes the most current smoking, or tobacco-related health factor, from the [place] facility where the Encounter took place. Date/Time Current Smoking Status Comment Bell romero Jan 24, 2022 02:00 PM VA-TOBACCO NEVER USED [facility] Tobacco Use History This section includes a history of the smoking, or tobacco-related health factors, that were collected on or before the date of the Encounter. The data comes from the [place] facility where the Encounter took place. Date/Time Smoking Status/Tobacco Use Comment F acility Nov 29, 2015 02:08 PM LIFETIME NON-TOBACCO USER [facility] Advance Directives: All historical and current Section Date Range: From patient's date of to the date document was created. This section includes ALL of a patient's completed or amended [place] Advance and Rescinded Directives. The entries below indicate that a directive exists for the patient, but an actual copy is not included with this document. The data comes from all [place] facilities. Date Advance Directives Provider Source Sep 08, 2009 ADVANCE DIRECTIVE CHOLO CONRAD [facility] Encounter Notes: All associated encounter notes This section contains the clinical notes associated to the Encounter. Date/Time Encounter Note(s) Provider Source Mar 03, 2024 02:13 PM PSYCHIATRY NOTE: LOCAL TITLE: PSYCHIATRY NOTE STANDARD TITLE: PSYCHIATRY NOTE DATE OF NOTE: MAR 03, 2024@14:13 ENTRY DATE: MAR 03, 2024@14:13:08 AUTHOR: AZAEL ZHANG EXP COSIGNER: URGENCY: STATUS: COMPLETED 30 minutes for encounter -- including chart review, interview, charting chart reviewed Patient relatively stable. She feels improved with the increase in Cymbalta last appointment. Depression and anxiety improved, she is satisfied with the response. Affect brightens appropriately. She denies SI and violent ideation. Fairly well organized. No h/o psychotic symptoms. No PI or delusions presented. Cognitive exam grossly intact. Good self-care. No slowing noted. Has interests. We again reviewed the medications, and the patient feels that the increase in Cymbalta last visit was helpful for depression and anxiety and irritability. Well-tolerated. She would like to keep the Cymbalta the same. Hydroxyzine helps insomnia. The patient denied history of alcohol abuse [...] Adjustment disorder with anxious mood (SNOMED CT 10383733) 9. Hydradenitis * 10. Type 2 diabetes mellitus (SNOMED CT 26078244) 11. Insomnia * 12. Hysterectomy * 13. Dizziness * 14. Somatization Disorder 15. Obesity (SNOMED CT 462924344) 16. Headache * 17. Hypertension (SNOMED CT 56128161) 18. Hyperlipidemia (SNOMED CT 83346699) 19. CONRADO - Generalized anxiety disorder (SNOMED CT 81388497) 20. Depression (SNOMED CT 51530376) Active Outpatient Medications (including Supplies): Active Outpatient [...] TYPE 2 DIABETES MELLITUS TO REPLACE METFORMIN 9) HYDROCHLOROTHIAZIDE 25MG TAB TAKE ONE TABLET BY MOUTH ACTIVE DAILY TO PREVENT FLUID/CONTROL BLOOD PRESSURE 10) HYDROXYZINE HCL 10MG TAB TAKE ONE TABLET BY MOUTH AT ACTIVE BEDTIME NEEDED FOR INSOMNIA 11) LANCET,SOFTCLIX USE 1 LANCET DIRECTED TWICE A WEEK ACTIVE NEEDED TO TEST BLOOD SUGAR 12) LOSARTAN 100MG TAB TAKE ONE TABLET BY MOUTH ONCE ACTIVE DAILY FOR BLOOD PRESSURE/HEART 13) SEMAGLUTIDE 0.25MG/0.375ML INJ PEN 3ML INJECT 0.25MG ACTIVE SUBCUTANEOUSLY ONCE A WEEK FOR 4 WEEKS, THEN INJECT 0.5MG ONCE A WEEK FOR 2 WEEKS Active Non-VA Medications Status ======= 1) Non-VA [...] Non-VA MULTIVITAMIN W/MINERAL TAB BY MOUTH ACTIVE 23 Total Medications PAST PSYCH MED HX: Pt [...] Patient wants to keep this the same. Discontinue melatonin for now, the patient has been taking it with the hydroxyzine, but hydroxyzine alone is likely sufficient for sleep (and the melatonin has not helped sufficiently) CONTINUE HYDROXYZINE LOW-DOSE 10 MG NIGHTLY NEEDED INSOMNIA. Risk of next-day sedation reviewed with the patient. consider remeron low dose to augment cymbalta (and to help with sleep)- but pt feel she is doing well with current meds, and does not Remeron at this time Return to clinic 3 mo for medication f/u or sooner thr [...] if has side effects with psychiatric medication. Suicide Screen: C-SSRS Screening Iron-Suicide Severity Rating Scale (C-SSRS Screener) 1. Over [...] required due to responses to other questions. Medication Reconciliation: Outpatient: Has the patient been taking medications as documented in the EMLR? YES: The patient has been taking medications as documented in the EMLR. Essential Medication List for Review used to complete this medication reconciliation. /rajeev/ AZAEL ZHANG MD STAFF PSYCHIATRIST Signed: 03/03/2024 14:55 AZAEL ZHANGFIELD
--- OUTSIDE RECORDS SUMMARY | 2024-12-31 15:33 | XMS_ITS ---
Author Name [facility] Organization [facility] Address [address] [place] [address] Care Team Providers Care Professional Sports Scout Name Role Phone YAHAIRA ESCALANTE Primary Care [...] Bueno's Name Patient's Relationship to Policy Bueno [facility] Feb 28, 2004 Jul 01, 2026 [id number] [phone] CHANDANCASTRO ЕЛЕНА PATIENT [facility] Feb 28, 2004 Jul 01, 2026 [facility] [id number] ЕЛЕНА JORDAN PATIENT [facility] W/OME DICAR E Feb 28, 2004 Jul 01, 2026 [facility] [id number] CHANDANCASTRO ЕЛЕНА PATIENT [facility] Feb 28, 2004 Jul 01, 2026 [id number] KIKO JORDAN JR SPOUSE [facility] Feb 28, 2004 Jul 01, 2026 [id number] [phone] CHANDANCASTRO, ЕЛЕНА PATIENT [facility] Feb 28, 2004 Jul 01, 2026 [id number] [phone] ЕЛЕНА JORDAN PATIENT [facility] Jun 18, 2015 Jul 01, 2026 [facility] [id number] SUMMER JORDANTA PATIENT [facility] Jan 19, 2013 Jul 01, 2026 [facility] [id number] [phone] SUMMER JORDANTA PATIENT [facility] Sep 22, 2012 Jul 01, 2026 [facility] [id number] KIKO JORDAN JR SPOUSE [facility] Sep 22, 2012 Jul 01, 2026 [facility] [id number] ЕЛЕНА JORDAN PATIENT [facility] Sep 22, 2012 Jul 01, 2026 [facility] [id number] [phone] ЕЛЕНА JORDAN PATIENT [facility] Feb 28, 2004 Jul 01, 2026 [facility] [id number] [phone] ЕЛЕНА JORDAN PATIENT [facility] Jun 18, 2015 [facility] [id number] [phone] ЕЛЕНА JORDAN PATIENT Selected Encounter This section includes the information on record at [place] for the Encounter. Date/Time Encounter Type Encounter Description Reason Provider Source Sep 15, 2024 11:30 AM INTRM OPH EXAM EST PATIENT OPTOMETRY ICD-10-CM Z96.1 Presence of intraocular lens HILARIA ALCANTAR Encounter Template Text not used by [place] Assessments - Encounter Diagnoses This section includes the primary and secondary diagnoses documented for the Encounter. Date/Time Primary/Secondary Diagnosis Diagnosis Name Provider Source Sep 15, 2024 10:56 AM PRIMARY Presence of intraocular lens PAUL ALCANTAR [facility] Sep 15, 2024 10:56 AM SECONDARY Dry eye syndrome of bilateral lacrimal glands PAUL ALCANTAR [facility] Sep 15, 2024 10:56 AM SECONDARY Type 2 diabetes mellitus without complications PAUL ALCANTAR [facility] Plan of Treatment: Future Appointments (+ 6 months) and Future Tests (+/- 45 days) The Plan of Treatment section includes future care activities for the patient from all [place] treatmentfacilities. This section includes future appointments and future orders which are active, pending or scheduled. Active, Pending, and Scheduled Orders This section includes a listing of several types of active, pending, and scheduled orders, including clinic medications orders, diagnostic test orders, procedure orders and consult orders; where the start date of the order is 45 days before the date of the Encounter or 45 days after the date of theEncounter. The data comes from all [place] treatment facilities. Test Date/Time Test Type Test Details Facility Name Sep 14, 2024 02:23 PM Consult Order ENDOCRINE/ NHM OUTPT Cons Applications Systems Engineer's Choice [facility] Lab Results: +/- 30 days of the encounter This section includes the Chemistry and Hematology Lab Results on record with NE for the patient. Radiology Reports and Pathology Reports are provided separately, in subsequent sections. Lab Results This section contains the Chemistry/Hematology Results that were resulted 30 days before or 30 daysafter the date of the Encounter. Date/Time Source Result Type Result - Unit Interpretation Reference Range Comment Sep 14, 2024 02:48 PM [facility] HEMOGLOBIN A1C PANEL Specimen Type: [...] Sep 14, 2024 02:24 PM Reporting Lab: [facility] [address] [id number] Performing Lab: [address] [address] HEMOGLOBIN A1C 8.1 H 4.0-5.6 Sep 14, 2024 02:48 PM [facility] MICROALBUMIN CREATININE RATIO PANEL Specimen Type: URINE No comment entered. Ordering Provider: YAHAIRA ESCALANTE Report Released Date/Time: Sep 14, 2024 02:25 PM Reporting Lab: [place] [facility] [place] [facility] [address] [phone] Performing Lab: [facility] [address] [phone] MICROALBUMIN/C REATININE RATIO canc mg/g 0-29.9 MICROALBUMIN,Q UANTITATIVE < 0.5 mg/dL RR UNAVAIL CREATININE URINE 27.03 mg/dL Social History: Smoking Status (Most current) and Tobacco Use (All prior to encounter date) This section includes the most current, and the historical, smoking and tobacco- related health factors from the NE facility where the Encounter took place. Current Smoking Status This section includes the most current smoking, or tobacco-related health factor, from the [place] facility where the Encounter took place. Date/Time Current Smoking Status Comment Bell romero Dec 09, 2023 01:00 PM VA-TOBACCO NEVER USED [facility] Tobacco Use History This section includes a history of the smoking, or tobacco-related health factors, that were collected on or before the date of the Encounter. The data comes from the NE facility where the Encounter took place. Date/Time Smoking Status/Tobacco Use Comment Chung acabby Jan 04, 2023 03:00 PM VA-TOBACCO NEVER USED [place] [facility] [place] [facility] Feb 20, 2021 11:30 AM VA-TOBACCO NEVER USED [facility] [place] [facility] Feb 18, 2020 09:39 AM VA-TOBACCO NEVER USED [facility] [place] [facility] Dec 02, 2018 03:30 PM VA-TOBACCO FORMER USER [facility] [place] [facility] Dec 02, 2018 03:30 PM VA-TOBACCO QUIT 15 YRS OR MORE [facility] [place] [facility] Feb 28, 2018 02:37 PM QUIT TOBACCO USE > 7 YEARS AGO [place] [facility] [place] [facility] Nov 23, 2016 10:49 AM LIFETIME NON-TOBACCO USER [place] [facility] [place] [facility] April 10, 2005 09:23 AM LIFETIME NON-SMOKER [facility] [place] [facility] April 10, 2005 09:23 AM LIFETIME NON-TOBACCO USER [facility] Advance Directives: All historical and current Section Date Range: From patient's date of to the date document was created. This section includes ALL of a patient's completed or amended VA Advance and Rescinded Directives. The entries below indicate that a directive exists for the patient, but an actual copy is not included with this document. The data comes from all [place] facilities. Date Advance Directives Provider Source Sep 08, 2009 ADVANCE DIRECTIVE ANATOLY CONRADNadja Thaddeus [facility] Encounter Notes: All associated encounter notes This section contains the clinical notes associated to the Encounter. Date/Time Encounter Note(s) Provider Source Sep 15, 2024 10:52 AM OPTOMETRY NOTE: LOCAL TITLE: OPTOMETRY NOTE STANDARD TITLE: OPTOMETRY NOTE DATE OF NOTE: SEP 15, 2024@10:52 ENTRY DATE: SEP 15, 2024@10:52:12 AUTHOR: PERFECTO ALCANTAR COSIGNER: URGENCY: STATUS: COMPLETED I saw this patient in conjunction with the student and agree with the stated findings and plan as noted below after reviewing both the history and repeating james elements of the physical exam now. Patient well-known to me returns for follow-up after recent community cataract surgery. She was last seen here February 04, 2024 with complaint of worsening vision and noted to have progressive cataracts compatible with her visual decline. Additionally she has a history of diabetes without retinopathy or macular edema either eye. She underwent successful cataract surgery with Dr. Anton but is not happy with the [id number] reading glasses he recommended. Anterior segment evaluation shows reduced tear break-up time and tear meniscus each eye but with well centered PCIOL. There is no evidence of NVI. Dilated retinal examination deferred given recent community cataract surgery with dilated retinal examination performed here February 04, 2024. Impression: Bilateral pseudophakia looks perfect update glasses today per patient request with copy of prescription given now. Bilateral dry eye disease continue use of non-VA lubricating drops 3-4 times a day each eye. History of diabetes without retinopathy or macular edema either eye not assessed today. Stressed the importance of continued optimize control of blood sugar, blood pressure and cholesterol with healthy lifestyle. Plan: Patient education as noted above. Copy of glasses prescription given to patient now. Return early June 2025 for comprehensive exam with dilation or sooner if need be. Ophthalmic medication reconciliation: None VA lubricating drops as needed each eye for dry eye disease. /rajeev/ Perfecto Alcantar OD CHIEF OF OPTOMETRY Signed: 09/15/2024 10:56 PERFECTO ALCANTAR [facility] [place] [facility] Sep 15, 2024 10:14 AM OPTOMETRY NOTE: LOCAL TITLE: OPTOMETRY NOTE STANDARD TITLE: OPTOMETRY NOTE DATE OF NOTE: SEP 15, 2024@10:14 ENTRY DATE: SEP 15, 2024@10:14:09 AUTHOR: TOÑO GRAVES EXP COSIGNER: PERFECTO ALCANTAR URGENCY: STATUS: COMPLETED Active problems - Computerized Problem List is the source for the followin. Gastroesophageal reflux disease 2. Allergic rhinitis 3. Fibromyalgia 4. Laboratory test result abnormal 5. Shingles 6. Intracranial meningioma 7. Sleep apnea 8. Adjustment disorder with anxious mood (SNOMED CT 85311168) 9. Hydradenitis * 10. Type 2 diabetes mellitus (SNOMED CT 83192909) 11. Insomnia * 12. Hysterectomy * 13. Dizziness * 14. Somatization Disorder 15. Obesity (SNOMED CT 094358767) 16. Headache * 17. Hypertension (SNOMED CT 14030642) 18. Hyperlipidemia (SNOMED CT 21771442) 19. CONRADO - Generalized anxiety disorder (SNOMED CT 33832878) 20. Depression (SNOMED CT 08740699) Active Outpatient Medications (including Supplies): Active Outpatient Medications Status 1) ALCOHOL PREP PAD USE 1 PAD [...] CAPSULE BY MOUTH ACTIVE TWICE DAILY DEPRESSION 6) EMPAGLIFLOZIN 10MG TAB TAKE ONE TABLET [...] including those prescribed by outside VA's, community providers, and all OTC meds were reviewed and reconciled with patient to the best of their abilities. This 64 year old FEMALE is seen today for refraction check after cataract sx about 2mo ago in both eyes. Pt [facility]2.00 [facility] and not happy with the vision and would like to get a SRx for PALs CAMILO: 02/04/24 Chief Complaint: Diabetic X 10 years Last A1C:8.1 OHx: None Ocular Medications: (-) Pain: (-) GERBER: (-) Diplopia: (-) Flashes: (-) Floaters: (-) Amaurosis Fugax/Tia's: (-) Eye Injury: (-) Eye Surgery: CE with PCIOL OU ~08/11 (-) TBI FOHx: (-) Glaucoma/ARMD/Blindness VITALS (most recent, as listed in the electronic record): B/P: 117/76 (09/14/2024 14:16) Pulse: 81 (09/14/2024 14:16) Temperature: 98.1 F [36.7 C] (09/14/2024 14:16) Weight: 164.7 lb [74.71 kg] (09/14/2024 14:16) Height: 61 in [154.9 cm] (12/09/2023 13:32) BMI: BMI: 31.2 PERTINENT LABS: HEMOGLOBIN A1C TREND Collection DT Spec HGBA1c 09/14/2024 14:48 BLOOD 8.1 H 04/21/2024 14:06 BLOOD 7.6 H 12/09/2023 14:17 BLOOD 9.0 H 03/28/2023 12:34 BLOOD 7.0 H 12/05/2022 12:47 BLOOD 7.4 H (-) Smoker/Length of Time/PPD: DVA (x )sc ( )cc - phoropter OD: 20/20-1 OS: 20/20-1 Pupils: PERRL (-)APD EOMs: SAFE OU, (-)Pain/Diplopia CVF (facial, peripheral): FTFC OU Subjective Refraction: OD: [place] sph 20/20 OS: [place] sph 20/20 Add:+2.50 20/20 Final SRx OD: [place] sph OS: [place] sph Add:+2.75 for pt's preferred WD All the above performed by student, reviewed by attending Anterior segment: Performed by student, repeated by attending Lids: clear OU Conj: Pterygium nasally OD and early pterygium nasally OS Cornea: trace small, round corneal opacification OU (-)k spindle OU (+) pigmented deposition in endothelium OS>OD (+) limbal relaxation scars OU AC: D&Q OU Angles: 4x4 OU Iris: flat and clear (-)NVI/TID OU Lens: PCIOL OU (-)PXF OU Tonometry: Not performed for this problem focus exam Performed by student, reviewed by attending [ ] GAT [ ] iCare OD mmHg OS mmHg Time: Fundus exam: Dilated: Non dilated:xxxxx Dilating Drops: 1GTT 1 % Tropicamide OU [...] Performed by student, repeated by attending Vit: Limited undilated view OU C/D: 0.xx/0.xx OD, 0.xx/0.xx OS pink & healthy rim tissue,(-) Drance heme (-)NVD OU Macula: Limited undilated view OU PPole: Limited undilated view OU A/V: 2/3 Vessels: Limited undilated view OU Periph: Limited undilated view OU Assessment/Plan: 1. Pseudophakia OU - PCIOLs appear well centered and stable today - Pt. ed. on findings - Monitor 2. Dry eyes OU; symptomatic - Pt. ed. on todays findings - Advised pt to buy OTC Refresh - Ed. pt. to use BID-QID OU even on days when eyes are not feeling dry - Monitor 3. Presbyopia OU - Pt. ed. on findings - Gave pt updated SRx - Monitor Return to Clinic for annual CEE or sooner prn Patient Education: Diabetes: Patient was educated regarding diabetes and related ocular complications including retinopathy and cataract formation as well as other related systemic complications. The importance of good blood sugar control, blood sugar testing as recommended by their PCP and the importance of timely follow up were all emphasized. /rajeev/ TOÑO GRAVES OPTOMETRY STUDENT Signed: 09/15/2024 16:25 /rajeev/ Perfecto Alcantar OD CHIEF OF OPTOMETRY Cosigned: 09/16/2024 09:30 TOÑO GRAVES [facility]
--- OUTSIDE RECORDS SUMMARY | 2024-12-31 15:33 | XMS_ITS | Encounter Summary ---
Author Name [facility] [place] Address [address] [place] [address] Care Team Providers Care Traffic Lieutenant Name Role Phone YAHAIRA ESCALANTE Primary Care [...] Bueno's Name Patient's Relationship to Policy Bueno [facility] Feb 28, 2004 Jul 01, 2026 [id number] [phone] ЕЛЕНА JORDAN PATIENT [facility] Feb 28, 2004 Jul 01, 2026 [facility] [id number] ЕЛЕНА JORDAN PATIENT W/OME DICAR E Feb 28, 2004 Jul 01, 2026 [facility] [id number] [phone] ЕЛЕНА JORDAN PATIENT [facility] Feb 28, 2004 Jul 01, 2026 [id number] MARYLOU JORDAN JR SPOUSE [facility] Feb 28, 2004 Jul 01, 2026 [id number] ЕЛЕНА JORDAN PATIENT [facility] Feb 28, 2004 Jul 01, 2026 [facility] [id number] [phone] ЕЛЕНА JORDAN PATIENT [facility] Jun 18, 2015 Jul 01, 2026 [facility] [id number] ЕЛЕНА JORDAN PATIENT [facility] Jan 19, 2013 Jul 01, 2026 [facility] [id number] [phone] ЕЛЕНА JORDAN PATIENT [facility] Sep 22, 2012 Jul 01, 2026 [facility] [id number] [phone] 3 ЕЛЕНА JORDAN PATIENT [facility] Sep 22, 2012 Jul 01, 2026 [facility] [id number] MARYLOU JORDAN JR SPOUSE [facility] Sep 22, 2012 Jul 01, 2026 [facility] [id number] [phone] ЕЛЕНА JORDAN PATIENT [facility] Feb 28, 2004 Jul 01, 2026 [facility] [id number] [phone] ЕЛЕНА JORDAN PATIENT [facility]UM/SANDRA MARAN [facility] Jun 18, 2015 [facility] [id number] [phone] ЕЛЕНА JORDAN PATIENT Selected Encounter This section includes the information on record at [place] for the Encounter. Date/Time Encounter Type Encounter Description Reason Provider Source Feb 14, 2024 02:30 PM MTMS BY PHARM JHON 15 MIN CLINICAL PHARMACY ICD-10-CM E11.9 Type 2 diabetes mellitus without complications LIUDMILA MARTINEZ [facility] Encounter Template Text not used by [place] Assessments - Encounter Diagnoses This section includes the primary and secondary diagnoses documented for the Encounter. Date/Time Primary/Secondary Diagnosis Diagnosis Name Provider Source Feb 14, 2024 07:42 PM PRIMARY Type 2 diabetes mellitus without complications LIUDMILA MARTINEZ [place] [facility] [place] [facility] Plan of Treatment: Future Appointments (+ 6 months) and Future Tests (+/- 45 days) The Plan of Treatment section includes future care activities for the patient from all [place] treatmentfacilities. This section includes future appointments and future orders which are active, pending or scheduled. Future Appointments This section includes appointments that were scheduled to occur 6 months from the date of the Encounter, up to a maximum of 20 appointments. The data comes from all [facility]. Appointment Date/Time Appointment Type Appointme nt Facility Name Mar 03, 2024 02:30 PM AMBULATORY - PSYCHIATRY [facility] Mar 05, 2024 02:30 PM AMBULATORY - MEDICINE [facility] [place] [facility] March 18, 2024 02:30 PM AMBULATORY - MEDICINE [place] [facility] [place] [facility] April 07, 2024 03:00 PM AMBULATORY - MEDICINE [place] [facility] [place] [facility] April 14, 2024 02:00 PM AMBULATORY - NONE [facility] [place] [facility] April 15, 2024 01:00 PM AMBULATORY - MEDICINE [place] [facility] [place] [facility] April 16, 2024 02:00 PM AMBULATORY - NONE [place] [facility] [place] [facility] Apr 21, 2024 01:30 PM AMBULATORY - MEDICINE [place] [facility] [place] [facility] Apr 28, 2024 10:00 AM AMBULATORY - PSYCHIATRY [facility] May 05, 2024 03:00 PM AMBULATORY - MEDICINE [place] [facility] [place] [facility] Jun 02, 2024 02:30 PM AMBULATORY - PSYCHIATRY [facility] Jun 04, 2024 03:30 PM AMBULATORY - MEDICINE [place] [facility] [place] [facility] Jul 08, 2024 03:00 PM AMBULATORY - PSYCHIATRY [facility] Jul 09, 2024 01:30 PM AMBULATORY - SURGERY [facility] Active, Pending, and Scheduled Orders This section includes a listing of several types of active, pending, and scheduled orders, including clinic medications orders, diagnostic test orders, procedure orders and consult orders; where the start date of the order is 45 days before the date of the Encounter or 45 days after the date of theEncounter. The data comes from all [facility]. Test Date/Time Test Type Test Details Facility Name March 18, 2024 12:00 AM Laboratory - Chemistry Order HEMOGLOBIN A1C PANEL BLOOD (LAV-BLOOD) [facility] [place] [facility] Vital Signs: All taken on the encounter date This section contains inpatient and outpatient Vital Signs collected on the date of the Encounter. Date/Time Temperature Pulse Blood Pressure Respiratory Rate SP02 Pain Height Weight Body Mass Index Source Feb 14, 2024 02:56 PM 165 31 [place] [facility] [place] [facility] Social History: Smoking Status (Most current) and Tobacco Use (All prior to encounter date) This section includes the most current, and the historical, smoking and tobacco- related health factors from the [place] facility where the Encounter took place. Current Smoking Status This section includes the most current smoking, or tobacco-related health factor, from the [place] facility where the Encounter took place. Date/Time Current Smoking Status Comment [place] [facility] Dec 09, 2023 01:00 PM [facility] Tobacco Use History This section includes a history of the smoking, or tobacco-related health factors, that were collected on or before the date of the Encounter. The data comes from the [place] facility where the Encounter took place. Date/Time Smoking Status/Tobacco Use Comment F acility Jan 04, 2023 03:00 PM VA-TOBACCO NEVER USED [facility] [place] [facility] Feb 20, 2021 11:30 AM VA-TOBACCO NEVER USED [facility] [place] [facility] Feb 18, 2020 09:39 AM VA-TOBACCO NEVER USED [place] [facility] [place] [facility] Dec 02, 2018 03:30 PM VA-TOBACCO FORMER USER [place] [facility] [place] [facility] Dec 02, 2018 03:30 PM VA-TOBACCO QUIT 15 YRS OR MORE [place] [facility] [place] [facility] Feb 28, 2018 02:37 PM QUIT TOBACCO USE > 7 YEARS AGO [place] [facility] [place] [facility] Nov 23, 2016 10:49 AM LIFETIME NON-TOBACCO USER [facility] [place] [facility] April 10, 2005 09:23 AM LIFETIME NON-SMOKER [facility] [place] [facility] April 10, 2005 09:23 AM LIFETIME NON-TOBACCO USER [place] [facility] [place] [facility] Advance Directives: All historical and current Section Date Range: From patient's date of to the date document was created. This section includes ALL of a patient's completed or amended [place] Advance and Rescinded Directives. The entries below indicate that a directive exists for the patient, but an actual copy is not included with this document. The data comes from all [place] facilities. Date Advance Directives Provider Source Sep 08, 2009 ADVANCE DIRECTIVE ANAMARIALUISITOIFEANYI Thaddeus [facility] Encounter Notes: All associated encounter notes This section contains the clinical notes associated to the Encounter. Date/Time Encounter Note(s) Provider Source Feb 14, 2024 07:43 PM ADDENDUM: LOCAL TITLE: Addendum STANDARD TITLE: ADDENDUM DATE OF NOTE: FEB 14, 2024@19:43:07 ENTRY DATE: FEB 14, 2024@19:43:09 AUTHOR: LIUDMILA MARTINEZ EXP COSIGNER: URGENCY: STATUS: COMPLETED Will ask AMSA to please schedule patient for: [X] CWM/NO/PHARM/PACT 3 TEL RTC order placed. Appointment Length: _30__ minutes. 03/05/24 @1400 telephone Thank you! /rajeev/ LIUDMILA MARTINEZ PHARMD,BCPS CLINICAL PHARMACY PRACTITIONER Signed: 02/14/2024 19:43 Receipt Acknowledged By: 02/17/2024 08:29 /rajeev/ JEFF SAUNDERS Clinical Perinatal Educator --- Original Document --- 02/14/24 PHARMACY CLINIC NOTE: ЕЛЕНА JORDAN, 63 yo FEMALE, presents for FTF follow visit for diabetes management. Pt was last seen in clinic on 01/31/24 in which no medication changes were made, erinn pro was reviewed, pt was spoken with on 02/03/24 on telephone and PAF for semaglutide was placed. Today, presents with her , Marylou. She states she is feeling ok. She is excited to start semaglutide for dm and weight management. Current diabetes medications: - empagliflozin Previous diabetes [...] minimal in target range. Highs are between 4129-4954, 5475-4469. Average bg in line with a1c 9 [...] to Podiatry:n/a - Most recent visit to Optometry:02/04/24 Type II diabetes without evidence of retinopathy or macular edema OU Plan: - Medication management - CONTINUE- empagliflozin 10 mg daily - INITIATE- semaglutide 0.25 mg once weekly x 4 weeks, then increase to 0.5 mg once weekly x 2 weeks - During visit review how to administer medication, how to store medication, common and severe adrs. - Recommended in event blurred vision to contact optometry immediately - Recommended if severe stomach ache needs to go to ER - Reviewed how to use glucometer and blood glucose goals and when to check bg - Monitor for s/sx hypoglycemia and contact [...] the development of this plan, involving the [facility], clinician, and any caregivers present. The was provided the opportunity express questions or concerns, and the plan was adjusted as needed to address these concerns. -Reviewed with [facility] any new medications, changes to the medication list, education, and plan from today's visit. Patient (and/or caregiver) verbalized understanding of the plan, including possible known risks and benefits, and had no additional questions. RTC:03/05/24 @1400 telephone Time Spent: 30 mins PBM PharmD Pharmacotherapy Rem V12: PHARMACIST INTERVENTIONS: TYPE 2 DIABETES MELLITUS Medication Intervention(s) Initiate new medication /rajeev/ LIUDMILA MARTINEZ PHARMD,BCPS CLINICAL PHARMACY PRACTITIONER Signed: 02/14/2024 19:43 LIUDMILA MARTINEZ [place] [facility] [place] [facility] Feb 14, 2024 02:20 PM PHARMACY OUTPATIENT NOTE: LOCAL TITLE: PHARMACY CLINIC NOTE STANDARD TITLE: PHARMACY OUTPATIENT NOTE DATE OF NOTE: FEB 14, 2024@14:20 ENTRY DATE: FEB 14, 2024@14:20:54 AUTHOR: LIUDMILA MARTINEZ EXP COSIGNER: URGENCY: STATUS: COMPLETED PHARMACY CLINIC NOTE Has ADDENDA ЕЛЕНА JORDAN, 63 yo FEMALE, presents for FTF follow visit for diabetes management. Pt was last seen in clinic on 01/31/24 in which no medication changes were made, erinn pro was reviewed, pt was spoken with on 02/03/24 on telephone and PAF for semaglutide was placed. Today, presents with her , Marylou. She states she is feeling ok. She is excited to start semaglutide for dm and weight management. Current diabetes medications: - empagliflozin Previous diabetes [...] minimal in target range. Highs are between 8797-7160, 5243-6949. Average bg in line with a1c 9 [...] to Podiatry:n/a - Most recent visit to Optometry:02/04/24 Type II diabetes without evidence of retinopathy or macular edema OU Plan: - Medication management - CONTINUE- empagliflozin 10 mg daily - INITIATE- semaglutide 0.25 mg once weekly x 4 weeks, then increase to 0.5 mg once weekly x 2 weeks - During visit review how to administer medication, how to store medication, common and severe adrs. - Recommended in event blurred vision to contact optometry immediately - Recommended if severe stomach ache needs to go to ER - Reviewed how to use glucometer and blood glucose goals and when to check bg - Monitor for s/sx hypoglycemia and contact [...] the development of this plan, involving the [facility], clinician, and any caregivers present. The [facility] was provided the opportunity express questions or concerns, and the plan was adjusted as needed to address these concerns. -Reviewed with any new medications, changes to the medication list, education, and plan from today's visit. Patient (and/or caregiver) verbalized understanding of the plan, including possible known risks and benefits, and had no additional questions. RTC:03/05/24 @1400 telephone Time Spent: 30 mins PBM PharmD Pharmacotherapy Rem V12: PHARMACIST INTERVENTIONS: TYPE 2 DIABETES MELLITUS Medication Intervention(s) Initiate new medication /diego MARTINEZ PHARMD,MARY CLINICAL PHARMACY PRACTITIONER Signed: 02/14/2024 19:43 02/14/2024 ADDENDUM STATUS: COMPLETED Will ask AMSA to please schedule patient for: [X] CWM/NO/PHARM/PACT 3 TEL RTC order placed. Appointment Length: _30__ minutes. 03/05/24 @1400 telephone Thank you! /diego MARTINEZ PHARMD,MARY CLINICAL PHARMACY PRACTITIONER Signed: 02/14/2024 19:43 Receipt Acknowledged By: * AWAITING SIGNATURE * JEFF SAUNDERS [facility]
--- OUTSIDE RECORDS SUMMARY | 2024-12-31 15:33 | XMS_ITS | Encounter Summary ---
Author Name [facility] [place] Organization [facility] Address [address] [place] [id number] Care Team Providers Care Armhole Presser Name Role Phone YAHAIRA ESCALANTE Primary Care [...] Bueno's Name Patient's Relationship to Policy Bueno [facility] Feb 28, 2004 Jul 01, 2026 [facility] [id number] ЕЛЕНА JORDAN PATIENT W/OME DICAR E Feb 28, 2004 Jul 01, 2026 [facility] [id number] CHANDANCASTRO ЕЛЕНА PATIENT [facility] Feb 28, 2004 Jul 01, 2026 [id number] KIKO JORDAN JR SPOUSE [facility] Feb 28, 2004 Jul 01, 2026 [id number] [phone] ЕЛЕНА JORDAN PATIENT [facility] Feb 28, 2004 Jul 01, 2026 [id number] ЕЛЕНА JORDAN PATIENT [facility] Feb 28, 2004 Jul 01, 2026 [facility] [id number] 88 ЕЛЕНА JORDAN PATIENT [facility] Jun 18, 2015 Jul 01, 2026 [facility] [id number] SUMMER JORDANTA PATIENT [facility] Jan 19, 2013 Jul 01, 2026 [facility] [id number] SUMMER JORDANTA PATIENT [facility] Sep 22, 2012 Jul 01, 2026 [facility] [id number] SUMMER JORDANTA PATIENT [facility] Sep 22, 2012 Jul 01, 2026 [facility] [id number] 88 JULIAN, ЕЛЕНА PATIENT [facility] Sep 22, 2012 Jul 01, 2026 [facility] [id number] CHANDANKIKO ERAZO JR SPOUSE [facility] Feb 28, 2004 Jul 01, 2026 [facility] [id number] [phone] ЕЛЕНА JORDAN PATIENT [facility]DRA [facility] Jun 18, 2015 [facility] [id number] [phone] 7 ЕЛЕНА JORDAN PATIENT Selected Encounter This section includes the information on record at [place] for the Encounter. Date/Time Encounter Type Encounter Description Reason Provider Source April 16, 2024 02:00 PM UNLISTED SPEC DERM SVC/PX DERMATOLOGY ICD-10-CM Z13.89 Encounter for screening for other disorder BERTHA SHELTON Ana Encounter Template Text not used by [place] Assessments - Encounter Diagnoses This section includes the primary and secondary diagnoses documented for the Encounter. Date/Time Primary/Secondary Diagnosis Diagnosis Name Provider Source April 16, 2024 03:38 PM PRIMARY Encounter for screening for other disorder BELINDA SHELTON [facility] Plan of Treatment: Future Appointments (+ 6 months) and Future Tests (+/- 45 days) The Plan of Treatment section includes future care activities for the patient from all [place] treatmentfacilities. This section includes future appointments and future orders which are active, pending or scheduled. Future Appointments This section includes appointments that were scheduled to occur 6 months from the date of the Encounter, up to a maximum of 20 appointments. The data comes from all [facility]. Appointment Date/Time Appointment Type Appointme nt Facility Name Apr 21, 2024 01:30 PM AMBULATORY - MEDICINE [facility] Apr 28, 2024 10:00 AM AMBULATORY - PSYCHIATRY [facility] May 05, 2024 03:00 PM [facility] Jun 02, 2024 02:30 PM AMBULATORY - PSYCHIATRY [facility] Jun 04, 2024 03:30 PM AMBULATORY MEDICINE [facility] Jul 08, 2024 03:00 PM AMBULATORY - PSYCHIATRY [facility] Jul 09, 2024 01:30 PM AMBULATORY - SURGERY [facility] Sep 04, 2024 11:30 AM AMBULATORY - PSYCHIATRY [facility] Sep 14, 2024 02:00 PM AMBULATORY - MEDICINE [facility] Sep 15, 2024 11:30 AM AMBULATORY - MEDICINE [facility] Active, Pending, [...] of theEncounter. The data comes from all [facility]. Test Date/Time Test Type Test Details Facility Name March 18, 2024 12:00 AM Laboratory - Chemistry Order HEMOGLOBIN A1C PANEL BLOOD (LAV-BLOOD) [facility] Lab Results: +/- 30 days of the encounter This section includes the Chemistry and Hematology Lab Results on record with [place] for the patient. Radiology Reports and Pathology Reports are provided separately, in subsequent sections. Lab Results This section contains the Chemistry/Hematology Results that were resulted 30 days before or 30 daysafter the date of the Encounter. Date/Time Source Result Type Result - Unit Interpretation Reference Range Comment Apr 21, 2024 02:06 PM [facility] HEMOGLOBIN A1C PANEL Specimen Type: BLOOD Comment: [...] April 17, 2024 01:15 PM Reporting Lab: [address] [id number] Performing Lab: [address] [address] HEMOGLOBIN A1C 7.6 H 4.0-5.6 Apr 21, 2024 02:06 PM [facility] BASIC METABOLIC PANEL (non-fasting) Specimen Type: SERUM No comment entered. Ordering Provider: YAHAIRA ESCALANTE Report Released Date/Time: April 17, 2024 01:15 PM Reporting Lab: [address] [address] Performing Lab: [address] [address] UREA NITROGEN 15 mg/dL 7-25 GLUCOSE 140 mg/dL H 65-100 SODIUM 135 mmol/L 135-145 POTASSIUM 3.9 mmol/L 3.5-5.0 CHLORIDE 100 mmol/L 100-110 CO2 26 meq/L 20-30 CREATININE, Serum 0.69 mg/dL 0.50-1.40 eGFR(CKD-EPI 2020) >90 mL/min >60 Apr 21, 2024 02:06 PM [facility] CBC Specimen Type: BLOOD No comment entered. Ordering Provider: YAHAIRA ESCALANTE Report Released Date/Time: April 17, 2024 01:15 PM Reporting Lab: [address] [address] Performing Lab: [address] [address] WBC 9.47 10*3/uL 4.50-11.00 RBC 4.60 10*6/uL [...] and tobacco- related health factors from the [place] facility where the Encounter took place. Current Smoking Status This section includes the most current smoking, or tobacco-related health factor, from the [place] facility where the Encounter took place. Date/Time Current Smoking Status Comment Facil ity Jan 24, 2022 02:00 PM VA-TOBACCO NEVER USED [facility] Tobacco Use History This section includes a history of the smoking, or tobacco-related health factors, that were collected on or before the date of the Encounter. The data comes from the [place] facility where the Encounter took place. Date/Time Smoking Status/Tobacco Use Comment F acility Nov 29, 2015 02:08 PM LIFETIME NON-TOBACCO USER [facility] Advance Directives: All historical and current Section Date Range: From patient's date of to the date document was created. This section includes ALL of a patient's completed or amended [place] Advance and Rescinded Directives. The entries below indicate that a directive exists for the patient, but an actual copy is not included with this document. The data comes from all [place] facilities. Date Advance Directives Provider Source Sep 08, 2009 ADVANCE DIRECTIVE CHOLO CONRAD [facility] Encounter Notes: All associated encounter notes This section contains the clinical notes associated to the Encounter. Date/Time Encounter Note(s) Provider Source April 16, 2024 02:43 PM TELEHEALTH CONSULT : LOCAL TITLE: CONSULT REPORT/TELEDERMATOLOGY IMAGING REQUEST STANDARD TITLE: TELEHEALTH CONSULT DATE OF NOTE: APRIL 16, 2024@14:43 ENTRY DATE: APRIL 16, 2024@14:43:30 AUTHOR: QUAN SHELTON EXP COSIGNER: URGENCY: STATUS: COMPLETED Teledermatology Consult Request The patient was educated regarding the Teledermatology process at this encounter. Comment: patient educated on telederm process abd verbalizes understanding. Patient DOES consent to have images taken, viewed, and interpreted using the Teledermatology process. This consult addresses: A new condition Images were acquired: In clinic HISTORY: Prior skin history: None reported Have you had a skin cancer before? None Reported Patient reports no family history of melanoma. Taking new med/supplements: Yes Name of medication(s): Vitas C and B12 Immunosuppression history: None reported Other significant history: None reported Chief Complaint: small hyperpingmented area on right abdomen that is pruritic and dry. PROBLEM A LOCATION(S): Trunk:Right Abdomen DURATION: Unsure but about 6 months Ago SYMPTOMS: Itch: It itches a lot, looks like a bacteria spread over my body when it starts itching CHANGES: Color, Size(same) TREATMENT: Yes Details: TRIAMCINOLONE 0.1% OINT,TOP 0.1% but helping BIOPSY: No Cad Cam Programmer's comments: Imaged per provider's direction and facility brandin. /rajeev/ QUAN SHELTON TELEHEALTH CLINICAL TECHNIAN (TCT) Signed: 04/16/2024 15:38 QUAN SHELTON [facility]
--- OUTSIDE RECORDS SUMMARY | 2024-12-31 15:33 | XMS_ITS ---
Author Name [place] Address [address] [place] [address] Care Team Providers Care Soot Blower Name Role Phone YAHAIRA ESCALANTE Primary Care [...] Bueno's Name Patient's Relationship to Policy Bueno [facility] Feb 28, 2004 Jul 01, 2026 [facility] [id number] ЕЛЕНА JORDAN PATIENT W/OME DICAR E Feb 28, 2004 Jul 01, 2026 [facility] [id number] [phone] ЕЛЕНА JORDAN PATIENT [facility] Feb 28, 2004 Jul 01, 2026 [id number] [phone] KIKO JORDAN JR SPOUSE [facility] Feb 28, 2004 Jul 01, 2026 [id number] [phone] ЕЛЕНА JORDAN PATIENT [facility] Feb 28, 2004 Jul 01, 2026 [id number] [phone] BUCKMORE, ЕЛЕНА PATIENT [facility] Feb 28, 2004 Jul 01, 2026 [facility] [id number] [phone] ЕЛЕНА JORDAN PATIENT [facility] Jun 18, 2015 Jul 01, 2026 [facility] [id number] [phone] SUMMER JORDANTA PATIENT [facility] Jan 19, 2013 Jul 01, 2026 [facility] [id number] [phone] SUMMER JORDANTA PATIENT [facility] Sep 22, 2012 Jul 01, 2026 [facility] [id number] SUMMER JORDANTA PATIENT [facility] Sep 22, 2012 Jul 01, 2026 [facility] [id number] KIKO JORADN JR SPOUSE [facility] Sep 22, 2012 Jul 01, 2026 [facility] [id number] [phone] ЕЛЕНА JORDAN PATIENT [facility] Feb 28, 2004 Jul 01, 2026 [facility] [id number] [phone] ЕЛЕНА JORDAN PATIENT [facility]SANDRA MARAN [facility] Jun 18, 2015 [facility] [id number] [phone] ЕЛЕНА JORDAN PATIENT Selected Encounter This section includes the information on record at [place] for the Encounter. Date/Time Encounter Type Encounter Description Reason Pro vider Source Dec 16, 2024 11:08 AM Outpatient Encounter PRIMARY CARE/MEDICINE IHE Encounter Template Text not used by [place] Social History: Smoking Status (Most current) and Tobacco Use (All prior to encounter date) This section includes the most current, and the historical, smoking and tobacco- related health factors from the [place] facility where the Encounter took place. Current Smoking Status This section includes the most current smoking, or tobacco-related health factor, from the [place] facility where the Encounter took place. Date/Time Current Smoking Status Comment Bell romero Dec 09, 2023 01:00 PM VA-TOBACCO NEVER USED [place] [facility] [place] [facility] Tobacco Use History This section includes a history of the smoking, or tobacco-related health factors, that were collected on or before the date of the Encounter. The data comes from the [place] facility where the Encounter took place. Date/Time Smoking Status/Tobacco Use Comment F acility Jan 04, 2023 03:00 PM VA-TOBACCO NEVER USED [place] [facility] [place] [facility] Feb 20, 2021 11:30 AM VA-TOBACCO NEVER USED [facility] [place] [facility] Feb 18, 2020 09:39 AM VA-TOBACCO NEVER USED [place] [facility] [place] [facility] Dec 02, 2018 03:30 PM VA-TOBACCO FORMER USER [place] [facility] [place] [facility] Dec 02, 2018 03:30 PM VA-TOBACCO QUIT 15 YRS OR MORE [place] [facility] [place] [facility] Feb 28, 2018 02:37 PM QUIT TOBACCO USE > 7 YEARS AGO [facility] [facility] Nov 23, 2016 10:49 AM LIFETIME NON-TOBACCO USER [place] [facility] [place] [facility] April 10, 2005 09:23 AM LIFETIME NON-SMOKER [place] [facility] April 10, 2005 09:23 AM LIFETIME [facility]BACCO [facility] Advance Directives: All historical and current Section Date Range: From patient's date of to the date document was created. This section includes ALL of a patient's completed or amended [place] Advance and Rescinded Directives. The entries below indicate that a directive exists for the patient, but an actual copy is not included with this document. The data comes from all [place] facilities. Date Advance Directives Provider Source Sep 08, 2009 ADVANCE DIRECTIVE CHOLO CONRAD [facility] Encounter Notes: All associated encounter notes This section contains the clinical notes associated to the Encounter. Date/Time Encounter Note(s) Provider Source Dec 16, 2024 11:08 AM [facility] [employer] NOTE : LOCAL TITLE: SMART BREAST IMAGING FOLLOW-UP STANDARD TITLE: [employer] HEALTH NOTE DATE OF NOTE: DEC 16, 2024@11:08 ENTRY DATE: DEC 16, 2024@11:08:27 AUTHOR: FREDRICK CARVER COSIGNER: URGENCY: STATUS: COMPLETED Record prior or outside mammogram: Written Report Available Outside report Received on: December 14, 2024 Location: [place] Biopsy: Ultrasound guided Date of procedure: December 09, 2024 It is not known/not documented if the patient has dense breast tissue. 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
--- OUTSIDE RECORDS SUMMARY | 2024-12-31 15:33 | XMS_ITS | Encounter Summary ---
Author Name [place] Organization [place] Address [address] [place] [address] Care Team Providers Care Physical Laboratory Assistant Name Role Phone YAHAIRA ESCALANTE Primary Care [...] Bueno's Name Patient's Relationship to Policy Bueno [facility] Feb 28, 2004 Jul 01, 2026 [id number] ЕЛЕНА JORDAN PATIENT [facility] Feb 28, 2004 Jul 01, 2026 [facility] [id number] ЕЛЕНА JORDAN PATIENT W/OME DICAR E Feb 28, 2004 Jul 01, 2026 [facility] [id number] ЕЛЕНА JORDAN PATIENT [facility] Feb 28, 2004 Jul 01, 2026 [id number] KIKO JORDAN JR SPOUSE [facility] Feb 28, 2004 Jul 01, 2026 [id number] ЕЛЕНА JORDAN PATIENT [facility] Feb 28, 2004 Jul 01, 2026 [facility] [id number] [phone] ЕЛЕНА JORDAN PATIENT [facility] Jun 18, 2015 Jul 01, 2026 [facility] [id number] [phone] ЕЛЕНА JORDAN PATIENT [facility] Jan 19, 2013 Jul 01, 2026 [facility] [id number] ЕЛЕНА JORDAN PATIENT [facility] Sep 22, 2012 Jul 01, 2026 [facility] [id number] KIKO JORDAN JR SPOUSE [facility] Sep 22, 2012 Jul 01, 2026 [facility] [id number] ЕЛЕНА JORDAN PATIENT [facility] Sep 22, 2012 Jul 01, 2026 [facility] [id number] ЕЛЕНА JORDAN PATIENT [facility] Feb 28, 2004 Jul 01, 2026 [facility] [id number] ЕЛЕНА JORDAN PATIENT [facility]SANDRA MAR[facility] Jun 18, 2015 [facility] [id number] [phone] ЕЛЕНА JORDAN PATIENT Selected Encounter This section includes the information on record at [place] for the Encounter. Date/Time Encounter Type Encounter Description Reason Pro vider Source April 05, 2024 10:01 PM Outpatient Encounter ADMIN PAT ACTIVTIES (MASNONCT) IHE Encounter Template Text not used by [place] Plan of Treatment: Future Appointments (+ 6 months) and Future Tests (+/- 45 days) The Plan of Treatment section includes future care activities for the patient from all [place] treatmentfaunc health caldwellities. This section includes future appointments and future orders which are active, pending or scheduled. Future Appointments This section includes appointments that were scheduled to occur 6 months from the date of the Encounter, up to a maximum of 20 appointments. The data comes from all [place] treatment facilities. Appointment Date/Time Appointment Type Appointme nt Facility Name April 07, 2024 03:00 PM AMBULATORY - MEDICINE [place] [facility] [place] [facility] April 14, 2024 02:00 PM AMBULATORY - NONE [place] [facility] [place] [facility] April 15, 2024 01:00 PM AMBULATORY - MEDICINE [place] [facility] [place] [facility] April 16, 2024 02:00 PM AMBULATORY - NONE [place] [facility] [place] [facility] Apr 21, 2024 01:30 PM AMBULATORY - MEDICINE [place] [facility] [place] [facility] Apr 28, 2024 10:00 AM AMBULATORY - PSYCHIATRY [facility] May 05, 2024 03:00 PM AMBULATORY - MEDICINE [place] [facility] [place] [facility] Jun 02, 2024 02:30 PM AMBULATORY - PSYCHIATRY [facility] Jun 04, 2024 03:30 PM AMBULATORY - MEDICINE [place] [facility] [place] [facility] Jul 08, 2024 03:00 PM AMBULATORY - PSYCHIATRY [facility] Jul 09, 2024 01:30 PM AMBULATORY - SURGERY [facility] Sep 04, 2024 11:30 AM AMBULATORY - PSYCHIATRY [facility] Sep 14, 2024 02:00 PM AMBULATORY - MEDICINE [facility] [place] [facility] Sep 15, 2024 11:30 AM AMBULATORY - MEDICINE [facility] [place] [facility] Active, Pending, and Scheduled Orders This section includes a listing of several types of active, pending, and scheduled orders, including clinic medications orders, diagnostic test orders, procedure orders and consult orders; where the start date of the order is 45 days before the date of the Encounter or 45 days after the date of theEncounter. The data comes from all [facility]. Test Date/Time Test Type Test Details Facility Name March 18, 2024 12:00 AM Laboratory - Chemistry Order HEMOGLOBIN A1C PANEL BLOOD (LAV-BLOOD) [facility] Lab Results: +/- 30 days of the encounter This section includes the Chemistry and Hematology Lab Results on record with [place] for the patient. Radiology Reports and Pathology Reports are provided separately, in subsequent sections. Lab Results This section contains the Chemistry/Hematology Results that were resulted 30 days before or 30 daysafter the date of the Encounter. Date/Time Source Result Type Result - Unit Interpretation Reference Range Comment Apr 21, 2024 02:06 PM [facility] HEMOGLOBIN A1C PANEL Specimen Type: BLOOD Comment: [...] April 17, 2024 01:15 PM Reporting Lab: [address] [address] Performing Lab: [address] [address] HEMOGLOBIN A1C 7.6 H 4.0-5.6 Apr 21, 2024 02:06 PM [facility] CBC Specimen Type: BLOOD No comment entered. Ordering Provider: YAHAIRA ESCALANTE Report Released Date/Time: April 17, 2024 01:15 PM Reporting Lab: [address] [address] Performing Lab: [address] [address] WBC 9.47 10*3/uL 4.50-11.00 RBC 4.60 10*6/uL 3.93-5.16 HGB 13.9 g/dL 12-15.2 HCT 42.2 36.6-45.6 MCV 91.7 fL 82-99 MCHC 32.9 g/dL 30.8-35.1 PLT 244 10*3/uL 140-360 RDW-CV 12.4 12.0-16.0 MCH 30.2 pg 26.2-32.6 Apr 21, 2024 02:06 PM [facility] BASIC METABOLIC PANEL (non-fasting) Specimen Type: SERUM No comment entered. Ordering Provider: YAHAIRA ESCALANTE Report Released Date/Time: April 17, 2024 01:15 PM Reporting Lab: [address] [address] Performing Lab: [address] [place] [address] UREA NITROGEN 15 mg/dL 7-25 GLUCOSE 140 [...] and tobacco- related health factors from the [place] facility where the Encounter took place. Current Smoking Status This section includes the most current smoking, or tobacco-related health factor, from the [place] facility where the Encounter took place. Date/Time Current Smoking Status Comment Bell romero Dec 09, 2023 01:00 PM VA-TOBACCO NEVER USED [place] [facility] [facility] Tobacco Use History This section includes a history of the smoking, or tobacco-related health factors, that were collected on or before the date of the Encounter. The data comes from the [place] facility where the Encounter took place. Date/Time Smoking Status/Tobacco Use Comment Chung acabby Jan 04, 2023 03:00 PM VA-TOBACCO NEVER USED [facility] [place] [facility] Feb 20, 2021 11:30 AM VA-TOBACCO NEVER USED [facility] [place] [facility] Feb 18, 2020 09:39 AM VA-TOBACCO NEVER USED [facility] [place] [facility] Dec 02, 2018 03:30 PM VA-TOBACCO FORMER USER [facility] [place] [facility] Dec 02, 2018 03:30 PM VA-TOBACCO QUIT 15 YRS OR MORE [facility] [place] [facility] Feb 28, 2018 02:37 PM QUIT TOBACCO USE > 7 YEARS AGO [facility] [place] [facility] Nov 23, 2016 10:49 AM LIFETIME NON-TOBACCO USER [facility] [place] [facility] April 10, 2005 09:23 AM LIFETIME NON-SMOKER [facility] [place] [facility] April 10, 2005 09:23 AM LIFETIME NON-TOBACCO USER [facility] [place] [facility] Advance Directives: All historical and current Section Date Range: From patient's date of to the date document was created. This section includes ALL of a patient's completed or amended [place] Advance and Rescinded Directives. The entries below indicate that a directive exists for the patient, but an actual copy is not included with this document. The data comes from all [place] facilities. Date Advance Directives Provider Source Sep 08, 2009 ADVANCE DIRECTIVE CHOLO CONRAD [facility] Encounter Notes: All associated encounter notes This section contains the clinical notes associated to the Encounter. Date/Time Encounter Note(s) Provider Source April 05, 2024 10:01 PM PHARMACY NOTE: LOCAL TITLE: V1 PHARMACY CUSTOMER CARE MEDICATION RENEWAL STANDARD TITLE: PHARMACY NOTE DATE OF NOTE: APRIL 05, 2024@22:01 ENTRY DATE: APRIL 05, 2024@22:01:37 AUTHOR: LAUREN STREETER EXP COSIGNER: URGENCY: STATUS: COMPLETED Date: March Division: [facility] referred by Pharmacy Call Center for medication renewal: Non-controlled/maintenanc e medication Medications requested: [id number] EMPAGLIFLOZIN 10MG TABLET Patient is out of medication and would appreciate expedited delivery if available. Please contact the outpatient pharmacy for assistance with shipment Defer to primary care provider To be mailed . Please review and renew if appropriate. *This note was generated by [facility]/AL Pharmacy Customer Care. If you have any questions or need assistance, do not contact this author. Please refer all questions to your local, on-site pharmacy departments. /rajeev/ LAUREN STREETER CPhT Natural Science Manager, [place]/Pharmacy Customer Care Signed: 04/05/2024 22:02 Receipt Acknowledged By: 12/08/2024 14:17 /rajeev/ JONI COOLEY M.D. PHYSICIAN LAUREN STREETER [place] [facility]
--- NOTE | 2024-12-31 15:35 | MHC.OFFVIS ---
Vital Signs 12/31/24 16:27 Height 5 ft 1 in Weight 164 lb 2 oz BMI 31.0 BP 139/65 Blood Pressure Location Lt brachial Position Sitting Pulse 88 Intake Visit Reasons: Breast Cancer Intake Note: Patient is seen in office for breast cancer. 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: No Law Examiner: Law Examiner Present Accompanied by: Other Relationship Allergies diphenhydramine [From Benadryl] Allergy (Mild, Verified 12/31/24 16:16) pass out hydromorphone [From Dilaudid] Allergy (Mild, Verified 12/31/24 16:16) Unknown latex Allergy (Mild, Verified 12/31/24 16:16) Itching metformin Allergy (Mild, Verified 12/31/24 16:16) Unknown morphine Allergy (Mild, Verified 12/31/24 16:16) Anaphylaxis omeprazole Allergy (Mild, Verified 12/31/24 16:16) Unknown morphine Allergy (Mild, Uncoded 12/31/24 16:16) Unknown Medication List - Last Reconciled 12/31/24 by Alirio Kaufman MD amlodipine 2.5 mg PO DAILY atorvastatin 40 mg PO DAILY cetirizine (Zyrtec) 10 mg PO DAILY PRN cholecalciferol (vitamin D3) 25 mcg PO DAILY duloxetine 30 mg PO BID empagliflozin 10 mg PO DAILY hydrochlorothiazide 25 mg PO DAILY HPI Comments Details: 64-year-old female patient presenting for evaluation of a newly diagnosed right breast cancer. Patient underwent 09/11/2024 with subsequent follow-up images obtained on 11/12/2024 including ultrasound. She was determined to have a 21 x 19 x 15 mm solid mass in the 3 o'clock position of the right breast, 4 cm from the nipple. This was felt to be suspicious for malignancy an ultrasound-guided core biopsy recommended. This was performed on 12/09/2024 at the [facility]. 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 She reports a previous breast biopsy which was benign and denies a family history of breast cancer. She also reports a previous history of a brain cancer although no information is available regarding her previous diagnosis. She denies any palpable mass or pain in the breast. Her menarche was the age of 12 and she is postmenopausal. She reports undergoing a hysterectomy. [facility] Surgical History History of excision of pilonidal cyst Hx of hysterectomy (2006) Hx of cataract surgery Social History Alcohol intake: current Alcohol intake frequency: holidays/special occasions only Patient Tobacco Use Status: Never used Tobacco Female Reproductive History Menstrual Age of Menarche: 12 Total pregnancies: 0 Review of Systems Const All systems reviewed & are unremarkable except as noted in HPI and below Denies chills, Denies fever(s), Denies headache(s), Denies poor appetite and Denies weakness ENT Denies headache(s) Card Denies chest pain, Denies irregular heart rhythm, Denies palpitations and Denies dyspnea Resp Denies cough, Denies excessive phlegm production and Denies dyspnea GI Denies abdominal pain, Denies bloating, Denies change in bowel habits, Denies constipation, Denies heartburn, Denies diarrhea, Denies nausea and Denies vomiting Denies urinary frequency Musc Denies back pain, Denies muscle weakness and Denies numbness Skin/Breast Denies changing lesions and Denies unusual bruising Neuro Denies headache(s), Denies numbness, Denies paresthesias and Denies weakness Psych Denies anxiety and Denies depression Endo Denies palpitations Evan/Lymph Denies lymphadenopathy Physical Exam Vital Signs: Last Vital Signs Pulse 88 12/31/24 16:27 BP 139/65 12/31/24 16:27 BMI result Body Mass Index 31.0 Const General: cooperative and no acute distress Nutritional Appearance: well nourished Orientation/consciousness: patient oriented x3 Limitations: no limitations HEENT Head: Yes normocephalic and Yes atraumatic Ears: hearing grossly normal bilaterally Chest Other: Right breast with a large palpable mass noted in the 3-2 o'clock position measuring at least 2-1/2 cm in diameter. The mass is mobile within the breast tissue with no overlying skin changes. No palpable lymph nodes are appreciated in the right axilla. No other palpable masses are noted in the breast. No nipple discharge or nipple retraction is appreciated. Left breast: No skin change, no nipple discharge, no palpable mass, no enlarged lymph nodes. Chest/axillae images: 1. Large mass right breast upper inner quadrant Resp Effort & Inspection: normal respiratory effort, no audible wheezes, no cough and no respiratory distress Cardio Jugular venous distension: no JVD GI Inspection: Yes normal to inspection Skin Other: Warm, dry, no rash Neuro General: patient oriented x3 Extrem General: Yes no clubbing, cyanosis or edema Assessment & Plan Assessment & Plan (1) Invasive ductal carcinoma of right breast: Code(s): C50.911 - Malignant neoplasm of unspecified site of right female breast Category: Medical Plan 64-year-old female patient with a newly diagnosed invasive ductal carcinoma, grade 3, ER/CA negative, HER2 Amina positive, Ki-67 high located in the 3 o'clock position of the right breast. On examination she does indeed have a large palpable mass in the upper inner quadrant. I reviewed the findings of the pathology in detail with the patient and her family. I recommended further evaluation with MRI of the breast as well as consultation with Oncology for consideration of possible neoadjuvant treatment. She expressed understanding and agrees with the plan. She will return following evaluation from Medical Oncology. Orders: Orders MR breast BI wo/w con Today C50.911 - Malignant neoplasm of unspecified site of right female breast Referrals Hematology & Oncology Referral C50.911 - Malignant neoplasm of unspecified site of right female breast Coding Level of Care Code New Pt Level 4 (71413) Complex EM visit Add On G2211 Diagnoses Invasive ductal carcinoma of right breast C50.911
[2024-12-31 16:27] VITALS: BP 139/65; PULSE 88; BMI 31.0
== END 2024-12-31 16:25 | disposition home or self-care (01) ==
LOC: HO.HGS 15:28
PROVIDERS: PCP Nurse Practitioner Family; Visit Provider Surgery
DX: C50.911 Malignant neoplasm of unspecified site of right female breast (principal)
CPT/HCPCS: 99204; G2211

== ENCOUNTER → 2024-12-31 15:28 | Outpatient (BNVA) | payer OTHER, SELFPAY | PROVIDERS: PCP Nurse Practitioner Family; Visit Provider Surgery | DX: C50.811 Malignant neoplasm of overlapping sites of right female breast (principal) | CPT/HCPCS: 99202 ==

== ENCOUNTER → 2025-01-08 10:34 | Outpatient (BNV) | payer OTHER, SELFPAY | PROVIDERS: PCP Nurse Practitioner Family; Referring Provider Nurse Practitioner Family; Visit Provider Internal Medicine Medical Oncology | DX: C50.911 Malignant neoplasm of unspecified site of right female breast (principal) | CPT/HCPCS: 99204 ==

== ENCOUNTER → 2025-01-16 15:35 | Outpatient (BNV) | payer OTHER, SELFPAY | PROVIDERS: PCP Nurse Practitioner Family; Visit Provider Radiology Diagnostic Radiology | DX: D49.6 Neoplasm of unspecified behavior of brain (principal) | CPT/HCPCS: 70553 ==

== ENCOUNTER 2025-01-16 15:36 | Outpatient (REF) | payer OTHER, SELFPAY ==
--- NOTE | ~2025-01-16 | MR_ITS ---
EXAMINATION: MR BRAIN WITHOUT AND WITH CONTRAST CLINICAL INFORMATION: History of brain tumor. COMPARISON: None available. TECHNIQUE: Multiplanar, multisequence MRI of the brain was obtained before and after the intravenous administration of 6.5 mL gadolinium. FINDINGS: There is no restricted diffusion seen to suspect any acute ischemic changes. There is no magnetic susceptibility artifact either to suspect any acute or chronic hemorrhagic products or calcium. There is no abnormal T2 FLAIR foci either. Pre and post T1 sequences reveal no evidence of edema, enhancing mass or mass effect except for 7 mm right anterior midline falx enhancing meningioma.. Visualized scalp, calvarium and extra-axial space appears unremarkable without enhancement. There is mild inflammatory changes involving left ethmoid sinus. Normal flow-void signal seen in major cerebral vasculature.. Hypoplastic left A1 anterior cerebral artery segment is noted. MR/MR head/brain wo/w con IMPRESSION: No acute intracranial process seen. 7 mm right anterior midline falx enhancing meningioma. Chronic left ethmoid sinus inflammatory changes. Electronically signed by: Jama Purcell MD 01/18/2025 10:10 AM [facility]
[2025-01-16] MEDS: gadobutroL 7.5 ML VIAL IVPUSH (16:30)
== END 2025-01-16 15:37 | disposition home or self-care (01) ==
LOC: HO.MRI 15:36
PROVIDERS: PCP Nurse Practitioner Family; Visit Provider Internal Medicine Medical Oncology
DX: D49.6 Neoplasm of unspecified behavior of brain (principal)
CPT/HCPCS: 70553; A9585

== ENCOUNTER → 2025-01-22 12:30 | Outpatient (REF) | payer OTHER, SELFPAY ==
--- NOTE | 2025-01-22 12:33 | CA_ITS ---
Transthoracic Echocardiogram Patient (Last, First, Middle): Angely Nolasco, Gender: Female Date of : 1960 Age: 64 Procedure Date: 01/22/2025 Procedure Type: Transthoracic Echocardiogram Location: OP Height: 154.94 cm Weight: 72.58 kg BSA: 1.72 m2 Heart Rate: 66 bpm BP: 118 / 60 mmHg Supervisor Steffen House: Referring MD: Noah Rashid MD Diesel Service Journeyman: Brian Baltazra MD Symptoms: Atrial fibrillation. History of CHF. Study Quality: Adequate ECG Rhythm: Sinus Conclusions: - 1. Normal LV systolic function with mild LVH with LVEF of 60 65% with impaired relaxation filling pattern 2. Normal cardiac valvular Dopplers 3. No gross pericardial effusion Findings Left Ventricle Normal left ventricular size and systolic function. There is mildly increased left ventricular wall thickness. The visually estimated ejection fraction is between 60-65%. Spectral Doppler is indicative of an impaired relaxation filling pattern. E/E prime ratio is between 8 and 15 consistent with indeterminate filling pressures. Peak GLS is -19.1%, within normal limits. Right Ventricle Normal right ventricular cavity size and systolic function. Atria The left atrium is normal in size. Interatrial shunt cannot be excluded. The right atrium is normal in size. Aortic Valve The aortic valve structure and function is likely normal. There is no aortic valve stenosis. There is no aortic valve regurgitation. Mitral Valve Likely normal mitral valve structure and function. There is no mitral valve regurgitation. There is no mitral valve stenosis. Pulmonic Valve The pulmonic valve was not well visualized. Tricuspid Valve Likely normal tricuspid valve structure and function. Tricuspid regurgitation envelope is inadequate for calculation of right ventricular systolic pressure. Normal right atrial pressure. Great Vessels All visible segments of the aorta are normal in size. The pulmonary artery was not well visualized. There is no dilatation of the ascending aorta measuring 3.30 cm. Venous The inferior vena cava is normal in size and collapses greater than 50% with inspiration. Pericardium/Pleural There is no evidence of pericardial effusion. Prior Study Comparison No prior study available for comparison. Measurements 2D Linear Measurements IVSd: 1.26 0.6-0.9/0.6-1.0 cm LVIDd: 4.20 3.9-5.3/4.2-5.9 cm LVIDd Index: 2.44 2.4-3.2/2.2-3.1 cm/m2 LVIDs: 2.61 2.0-3.6 cm LVPWd: 1.22 0.7-1.1 cm LA Diam: 3.80 2.7-3.8/3.0-4.0 cm LAIDs Index: 2.21 1.5-2.3 cm/m2 LV Mass: 232.95 67-162/88-224 g LV Mass Index: 135.44 43-95/49-115 g/m2 LVOT Diam: 2.20 3.0+(-)1.3 cm Mitral Valve MV Pk E: 0.88 MV PK A: 0.93 MV Decel Time: 153.00 E/A: 0.90 E'Lateral: 8.16 E'Medial: 5.66 E/E' Med: 15.50 E/E' Lat: 10.80 PHT: 45.00 MVA PHT: 4.89 Decel Sutter: 5.73 Aortic Valve AoV Pk Colby: 1.54 AoV Mn Colby: 1.05 AoV VTI: 0.39 AoV Pk Grad: 9.00 Aov Mn Grad: 5.00 KIARA Cont.VTI: 2.59 LVOT LVOT Pk Colby: 1.12 LVOT Mn Colby: 0.68 LVOT VTI: 0.26 LVOT Pk Grad: 5.00 LVOT Mn Grad: 2.00 LVOT Diam: 2.20 LVOT Area: 3.80 Diastolic Function MV Pk E: 0.88 MV Pk A: 0.93 E/A: 0.90 E'Medial: 5.66 E/E' Med: 15.50 E' Laterial: 8.16 E/E' Lat: 10.80 Right Ventricle TAPSE (mm): 30.90 TVS' Colby: 10.80 Tricuspid Valve RA Press: 3.00 Great Vessels Aorta Sinus of Valsalva: 3.00 2.0-3.5 cm Ao Asc: 3.30 2.1-3.4 cm Pulmonary Valve PV Pk Colby: 0.90 Peak PV Grad: 3.00 Updated in Other Vendor System with Status of Final Brian Baltazar MD electronically signed on 01/23/2025 12:20:36 PM with status of Final
== END ==
LOC: HO.CARD 12:30
PROVIDERS: PCP Nurse Practitioner Family; Visit Provider Internal Medicine Medical Oncology
DX: I50.9 Heart failure, unspecified (principal)
CPT/HCPCS: 93306

== ENCOUNTER → 2025-01-22 12:33 | Outpatient (BNV) | payer OTHER, SELFPAY | PROVIDERS: PCP Nurse Practitioner Family; Visit Provider Internal Medicine Cardiovascular Disease | DX: I48.91 Unspecified atrial fibrillation (principal) | CPT/HCPCS: 93306; 93356 ==

== ENCOUNTER 2025-01-25 13:20 | Outpatient (REF) | payer OTHER, SELFPAY ==
[2025-01-25] MEDS: gadobutroL 7.5 ML VIAL IVPUSH (14:31)
--- OUTSIDE RECORDS SUMMARY | 2025-01-25 15:07 | XMS_ITS | Encounter Summary ---
Author Name [facility] [place] Address [address] [place] [address] Care Team Providers Care Beauty Culture Teacher Name Role Phone YAHAIRA ESCALANTE Primary Care [...] Bueno's Name Patient's Relationship to Policy Bueno [facility] Feb 28, 2004 Jul 01, 2026 [facility] [id number] ЕЛЕНА JORDAN PATIENT W/OME DICAR E Feb 28, 2004 Jul 01, 2026 [facility] [id number] [phone] ЕЛЕНА JORDAN PATIENT [facility] Feb 28, 2004 Jul 01, 2026 [id number] [phone] ЕЛЕНА JORDAN PATIENT [facility] Feb 28, 2004 Jul 01, 2026 [id number] [phone] KIKO JORDAN JR SPOUSE [facility] Feb 28, 2004 Jul 01, 2026 [id number] [phone] ЕЛЕНА JORDAN PATIENT [facility] Feb 28, 2004 Jul 01, 2026 [facility] [id number] [phone] ЕЛЕНА JORDAN PATIENT [facility] Jun 18, 2015 Jul 01, 2026 [facility] [id number] [phone] 7 ЕЛЕНА JORDAN PATIENT [facility] Jan 19, 2013 Jul 01, 2026 [facility] [id number] [phone] ЕЛЕНА JORDAN PATIENT [facility] Sep 22, 2012 Jul 01, 2026 [facility] [id number] ЕЛЕНА JORDAN PATIENT [facility] Sep 22, 2012 Jul 01, 2026 [facility] [id number] [phone] KIKO JORDAN JR SPOUSE [facility] Sep 22, 2012 Jul 01, 2026 [facility] [id number] [phone] ЕЛЕНА JORDAN PATIENT [facility] Feb 28, 2004 Jul 01, 2026 [facility] [id number] [phone] ЕЛЕНА JORDAN PATIENT OPTUM/SANDRA MARAN [facility] Jun 18, 2015 [facility] [id number] [phone] ЕЛЕНА JORDAN PATIENT Selected Encounter This section includes the information on record at [place] for the Encounter. Date/Time Encounter Type Encounter Description Reason Pro vider Source Jan 18, 2025 07:38 PM Outpatient Encounter ADMIN PAT ACTIVTIES (MASNONCT) IHE Encounter Template Text not used by [place] Plan of Treatment: Future Appointments (+ 6 months) and Future Tests (+/- 45 days) The Plan of Treatment section includes future care activities for the patient from [facility] [place] [facility] This section includes future appointments and future orders which are active, pending or scheduled. Future Appointments This section includes appointments that were scheduled to occur 6 months from the date of the Encounter, up to a maximum of 20 appointments. The data comes from all [facility]. Appointment Date/Time Appointment Type Appointme nt Facility Name Feb 23, 2025 02:30 PM AMBULATORY - PSYCHIATRY [facility] April 08, 2025 03:00 PM AMBULATORY - PSYCHIATRY [facility] Jun 29, 2025 02:30 PM AMBULATORY - MEDICINE [facility] Active, Pending, and Scheduled Orders This section includes a listing of several types of active, pending, and scheduled orders, including clinic medications orders, diagnostic test orders, procedure orders and consult orders; where the start date of the order is 45 days before the date of the Encounter or 45 days after the date of theEncounter. The data comes from all [facility] facilities. Test Date/Time Test Type Test Details Facility Name Feb 12, 2025 12:00 AM Laboratory - Chemistry Order BASIC METABOLIC PANEL (non-fasting) BLOOD (SST-SERUM) [facility] Feb 12, 2025 12:00 AM Laboratory - Chemistry Order LIPID PANEL FASTING BLOOD (SST-SERUM) [facility] Feb 12, 2025 12:00 AM Laboratory - Chemistry Order HEMOGLOBIN A1C PANEL BLOOD (LAV-BLOOD) [facility] Feb 12, 2025 12:00 AM Laboratory - Chemistry Order MICROALBUMIN CREATININE RATIO PANEL URINE (RANDOM) [facility] Social History: Smoking Status (Most current) and Tobacco Use (All prior to encounter date) This section includes the most current, and the historical, smoking and tobacco- related health factors from the [place] facility where the Encounter took place. Current Smoking Status This section includes the most current smoking, or tobacco-related health factor, from the [place] facility where the Encounter took place. Date/Time Current Smoking Status Comment [facility] Dec 09, 2023 01:00 PM VA-TOBACCO [facility] Tobacco Use History This section includes a history of the smoking, or tobacco-related health factors, that were collected on or before the date of the Encounter. The data comes from the [place] facility where the Encounter took place. Date/Time Smoking Status/Tobacco Use Comment Chung doss Jan 04, 2023 03:00 PM VA-TOBACCO NEVER USED [place] [facility] [facility] Feb 20, 2021 11:30 AM VA-TOBACCO [facility]ED [facility] Feb 18, 2020 09:39 AM [facility] Dec 02, 2018 03:30 PM [facility] Dec 02, 2018 03:30 PM VA-TOBACCO QUIT 15 YRS OR MORE [facility] Feb 28, 2018 02:37 PM QUIT TOBACCO USE > 7 YEARS AGO [facility] Nov 23, 2016 10:49 AM LIFETIME [facility] April 10, 2005 09:23 AM LIFETIME NON-SMOKER [facility] April 10, 2005 09:23 AM LIFETIME NON-TOBACCO USER [facility] Advance Directives: All historical and current Section Date Range: From patient's date of to the date document was created. This section includes ALL of a patient's completed or amended [place] Advance and Rescinded Directives. The entries below indicate that a directive exists for the patient, but an actual copy is not included with this document. The data comes from all [place] facilities. Date Advance Directives Provider Source Sep 08, 2009 ADVANCE DIRECTIVE ANATOLY CONRADNadja Thaddeus [facility] Encounter Notes: All associated encounter notes This section contains the clinical notes associated to the Encounter. Date/Time Encounter Note(s) Provider Source Jan 18, 2025 07:38 PM PHARMACY NOTE: LOCAL TITLE: V1 PHARMACY CUSTOMER CARE MEDICATION RENEWAL STANDARD TITLE: PHARMACY NOTE DATE OF NOTE: JAN 18, 2025@19:38 ENTRY DATE: JAN 18, 2025@19:38:44 AUTHOR: JOSE RAMON GARRISON COSIGNER: URGENCY: STATUS: COMPLETED V1 PHARMACY CUSTOMER CARE MEDICATION RENEWAL Has ADDENDA Date: Jan Division: Redig Pt referred by Pharmacy Call Center for medication renewal: Non-controlled/maintenan ce medication Medications requested: [id number] LOSARTAN 100MG TAB Defer to primary care provider To be mailed . Please review and renew if appropriate. *This note was generated by [facility]/[place] [facility] Customer Care. If you have any questions or need assistance, do not contact this author. Please refer all questions to your local, on-site pharmacy departments. /rajeev/ JOSE RAMON GARRISON records analysis manager Bulk Plant Operator, [place]/Pharmacy Customer Care Signed: 01/18/2025 19:39 Receipt Acknowledged By: 01/19/2025 12:23 /es/ RUBI MCMILLAN Nurse Practitioner 01/19/2025 08:22 /es/ DENNY MCCLAIN REGISTERED NURSE 01/19/2025 ADDENDUM STATUS: COMPLETED Defer to PCP for renewal of medication as deemed appropraite /rajeev/ DENNY MCCLAIN REGISTERED NURSE Signed: 01/19/2025 08:20 JOSE RAMON GARRISON [facility]
--- OUTSIDE RECORDS SUMMARY | 2025-01-25 15:07 | XMS_ITS | Encounter Summary ---
Author Name [facility] [place] Address [address] [place] [address] Care Team Providers Care Siding Mechanic Name Role Phone YAHAIRA ESCALANTE Primary Care [...] Bueno's Name Patient's Relationship to Policy Bueno [facility] Feb 28, 2004 Jul 01, 2026 [facility] [id number] ЕЛЕНА JORDAN PATIENT W/OME DICAR E Feb 28, 2004 Jul 01, 2026 [facility] [id number] [phone] ЕЛЕНА JORDAN PATIENT [facility] Feb 28, 2004 Jul 01, 2026 [id number] ЕЛЕНА JORDAN PATIENT [facility] Feb 28, 2004 Jul 01, 2026 [id number] [phone] KIKO JORDAN JR SPOUSE [facility] Feb 28, 2004 Jul 01, 2026 [id number] ЕЛЕНА JORDAN PATIENT [facility] Feb 28, 2004 Jul 01, 2026 [facility] [id number] 88 ЕЛЕНА JORDAN PATIENT [facility] Jun 18, 2015 Jul 01, 2026 [facility] [id number] [phone] SUMMER JORDANTA PATIENT [facility] RX [facility] Jan 19, 2013 Jul 01, 2026 [facility] [id number] [phone] SUMMER JORDANTA PATIENT [facility] Sep 22, 2012 Jul 01, 2026 [facility] [id number] [phone] ЕЛЕНА JORDAN PATIENT [facility] Sep 22, 2012 Jul 01, 2026 [facility] [id number] KIKO JORDAN JR SPOUSE [facility] Sep 22, 2012 Jul 01, 2026 [facility] [id number] ЕЛЕНА JORDAN PATIENT [facility] Feb 28, 2004 Jul 01, 2026 [facility] [id number] [phone] ЕЛЕНА JORDAN PATIENT OPTUM/SANDRA MARAN [facility] Jun 18, 2015 [facility] [id number] [phone] ЕЛЕНА JORDAN PATIENT Selected Encounter This section includes the information on record at [place] for the Encounter. Date/Time Encounter Type Encounter Description Reason Provider Source Dec 31, 2024 12:27 PM PH1 ASSMT&MGMT NQHP 5-10 TELEPHONE CASE MANAGEMENT ICD-10-CM Z71.9 Counseling, unspecified MAXINE SWAIN E Encounter Template Text not used by [place] Assessments - Encounter Diagnoses This section includes the primary and secondary diagnoses documented for the Encounter. Date/Time Primary/Secondary Diagnosis Diagnosis Name Provider Source Dec 31, 2024 12:27 PM PRIMARY Counseling, unspecified MAXINE SWAIN [place] [facility] [place] [facility] Plan of Treatment: [...] 20 appointments. The data comes from all [facility]. Appointment Date/Time Appointment Type Appointme nt Facility Name Feb 23, 2025 02:30 PM AMBULATORY - PSYCHIATRY [facility] April 08, 2025 03:00 PM AMBULATORY - PSYCHIATRY [facility] Jun 29, 2025 02:30 PM AMBULATORY - MEDICINE [facility] Active, Pending, and Scheduled Orders This section includes a listing of several types of active, pending, and scheduled orders, including clinic medications orders, diagnostic test orders, procedure orders and consult orders; where the start date of the order is 45 days before the date of the Encounter or 45 days after the date of theEncounter. The data comes from all [facility]. Test Date/Time Test Type Test Details Facility Name Feb 12, 2025 12:00 AM Laboratory - Chemistry Order BASIC METABOLIC PANEL (non-fasting) BLOOD (SST-SERUM) [facility] Feb 12, 2025 12:00 AM Laboratory - Chemistry Order LIPID PANEL FASTING BLOOD (SST-SERUM) [facility] Feb 12, 2025 12:00 AM Laboratory - Chemistry Order HEMOGLOBIN A1C PANEL BLOOD (LAV-BLOOD) [facility] Feb 12, 2025 12:00 AM Laboratory - Chemistry Order MICROALBUMIN CREATININE RATIO PANEL URINE (RANDOM) [facility] Social History: Smoking Status (Most current) and Tobacco Use (All prior to encounter date) This section includes the most current, and the historical, smoking and tobacco- related health factors from the [place] facility where the Encounter took place. Current Smoking Status This section includes the most current smoking, or tobacco-related health factor, from the [place] facility where the Encounter took place. Date/Time Current Smoking Status Comment Bell romero Dec 09, 2023 01:00 PM [place]-TOBACCO NEVER USED [facility] Tobacco Use History This section includes a history of the smoking, or tobacco-related health factors, that were collected on or before the date of the Encounter. The data comes from the [place] facility where the Encounter took place. Date/Time Smoking Status/Tobacco Use Comment F acility Jan 04, 2023 03:00 PM VA-TOBACCO NEVER USED [place] [facility] [place] [facility] Feb 20, 2021 11:30 AM VA-TOBACCO NEVER USED [place] [facility] [place] [facility] Feb 18, 2020 09:39 AM VA-TOBACCO NEVER USED [place] [facility] [place] [facility] Dec 02, 2018 03:30 PM VA-TOBACCO FORMER USER [place] [facility] [place] [facility] Dec 02, 2018 03:30 PM VA-TOBACCO QUIT 15 YRS OR MORE [place] [facility] [place] [facility] Feb 28, 2018 02:37 PM QUIT TOBACCO USE > 7 YEARS AGO [place] [facility] [place] [facility] Nov 23, 2016 10:49 AM LIFETIME NON-TOBACCO USER [place] [facility] [place] [facility] April 10, 2005 09:23 AM LIFETIME NON-SMOKER [place] [facility] April 10, 2005 09:23 AM LIFETIME NON-TOBACCO USER [place] [facility] Advance Directives: All historical and current Section Date Range: From patient's date of to the date document was created. This section includes ALL of a patient's completed or amended [place] Advance and Rescinded Directives. The entries below indicate that a directive exists for the patient, but an actual copy is not included with this document. The data comes from all [place] facilities. Date Advance Directives Provider Source Sep 08, 2009 ADVANCE DIRECTIVE CHOLO CONRAD [facility] Encounter Notes: All associated encounter notes This section contains the clinical notes associated to the Encounter. Date/Time Encounter Note(s) Provider Source Jan 01, 2025 03:38 PM ADDENDUM: LOCAL TITLE: Addendum STANDARD TITLE: ADDENDUM DATE OF NOTE: JAN 01, 2025@15:38:19 ENTRY DATE: JAN 01, 2025@15:38:20 AUTHOR: YAHAIRA ESCALANTE EXP COSIGNER: URGENCY: STATUS: COMPLETED Called to make sure she called [facility] to get in to be seen, per and who were both on the phone she was seen by [facility] surgeon yesterday per they did not want to do surgery rather wait and have her see oncology at [facility], They did not elaborate on which insurance coverage or if using but happy they were seen, while on the phone said someone from [facility] was calling so I said goodmilviae and I would reach out in 2 weeks when I return to station to ensure they have all follow ups needed. Also would like to see her sooner to make sure she has everything she needs with this invasive ductal carcinoma that was found on path results. Thank you all for the help in this case and will reach out if anything. /rajeev/ RUBI MCMILLAN Nurse Practitioner Signed: 01/01/2025 15:41 Receipt Acknowledged By: 01/01/2025 15:51 /rajeev/ MATEUSZ LONG LICENSED INDEPENDENT CLINICAL ACCESS CLERK 01/05/2025 08:52 /es/ Fredrick Barnes RN, BSN Women's Healthcare Navigator, RN 01/07/2025 10:39 /es/ TORSTEN KIRAN RN MSN REGISTERED NURSE ========= --- Original Document --- 12/31/24 SOCIAL WORK NOTE: Surgery Technician reached out to check in. passed the phone to her who remembered call from this ad writer I remember speaking to you. I want you to know we looked into everything you told us and also what other people from the [place] told us and she now has insurance. Thank you for helping her. If we need anything more we will call you . Verbalized appreciation. Encouraged to contact ad writer and [place] prn. /rajeev/ MATEUSZ LONG LICENSED INDEPENDENT CLINICAL ACCESS CLERK Signed: 12/31/2024 12:34 YAHAIRA ESCALANTE [place] [facility] [place] [facility] Dec 31, 2024 12:27 PM SOCIAL WORK NOTE: LOCAL TITLE: SOCIAL WORK NOTE STANDARD TITLE: SOCIAL WORK NOTE DATE OF NOTE: DEC 31, 2024@12:27 ENTRY DATE: DEC 31, 2024@12:28:03 AUTHOR: DONI SWAIN EXP COSIGNER: URGENCY: STATUS: COMPLETED SOCIAL WORK NOTE Has ADDENDA Surgery Technician reached out to check in. passed the phone to her who remembered call from this ad writer I remember speaking to you. I want you to know we looked into everything you told us and also what other people from the [place] told us and she now has insurance. Thank you for helping her. If we need anything more we will call you . Verbalized appreciation. Encouraged to contact ad writer and [place] prn. /es/ MATEUSZ LONG LICENSED INDEPENDENT CLINICAL ACCESS CLERK Signed: 12/31/2024 12:34 01/01/2025 ADDENDUM STATUS: COMPLETED Called to make sure she called [facility] to get in to be seen, per and who were both on the phone she was seen by [facility] surgeon yesterday per they did not want to do surgery rather wait and have her see oncology at [facility], They did not elaborate on which insurance coverage or if using but happy they were seen, while on the phone said someone from [facility] was calling so I said goodbye and I would reach out in 2 weeks when I return to station to ensure they have all follow ups needed. Also would like to see her sooner to make sure she has everything she needs with this invasive ductal carcinoma that was found on path results. Thank you all for the help in this case and will reach out if anything. /es/ RUBI MCMILLAN Nurse Practitioner Signed: 01/01/2025 15:41 Receipt Acknowledged By: * AWAITING SIGNATURE * DONI SWAIN * AWAITING SIGNATURE * FREDRICK BARNES * AWAITING SIGNATURE * TORSTEN KIRAN [facility]
--- OUTSIDE RECORDS SUMMARY | 2025-01-25 15:07 | XMS_ITS | Encounter Summary ---
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 Name Role Phone YAHAIRA ESCALANTE Primary Care [...] Bueno's Name Patient's Relationship to Policy Bueno [facility] Feb 28, 2004 Jul 01, 2026 [facility] [id number] ЕЛЕНА NOLASCO PATIENT W/OME DICAR E Feb 28, 2004 Jul 01, 2026 [facility] [id number] [phone] ЕЛЕНА NOLASCO PATIENT [facility] Feb 28, 2004 Jul 01, 2026 [id number] KIKO NOLASCO JR SPOUSE [facility] Feb 28, 2004 Jul 01, 2026 [id number] [phone] ЕЕЛНА NOLASCO PATIENT [facility] Feb 28, 2004 Jul 01, 2026 [id number] [place], ЕЛЕНА PATIENT [facility] Feb 28, 2004 Jul 01, 2026 [id number] ЕЛЕНА NOLASCO PATIENT [facility] Jun 18, 2015 Jul 01, 2026 [facility] [id number] ЕЛЕНА NOLASCO PATIENT [facility] Jan 19, 2013 Jul 01, 2026 [facility] [id number] [phone] ЕЛЕНА NOLASCO PATIENT [facility] Sep 22, 2012 Jul 01, 2026 [facility] [id number] [phone] ЕЛЕНА NOLASCO PATIENT [facility] Sep 22, 2012 Jul 01, 2026 [facility] [id number] KIKO NOLASCO JR SPOUSE [facility] Sep 22, 2012 Jul 01, 2026 [facility] [id number] ЕЛЕНА NOLASCO PATIENT [facility] Feb 28, 2004 Jul 01, 2026 [facility] [id number] [phone] ЕЛЕНА NOLASCO PATIENT [facility]SANDRA MARAN [facility] Jun 18, 2015 [facility] [id number] [phone] ЕЛЕНА NOLASCO PATIENT Selected Encounter This section includes the information on record at [place] for the Encounter. Date/Time Encounter Type Encounter Description Reason Pro vider Source Jan 14, 2025 10:34 AM Outpatient Encounter PRIMARY CARE/MEDICINE IHE Encounter Template Text not used by [place] Plan of Treatment: Future Appointments (+ 6 months) and Future Tests (+/- 45 days) The Plan of Treatment section includes future care activities for the patient from all [place] [facility]. This section includes future appointments and future orders which are active, pending or scheduled. Future Appointments This section includes appointments that were scheduled to occur 6 months from the date of the Encounter, up to a maximum of 20 appointments. The data comes from all [facility]. Appointment Date/Time Appointment Type Appointme nt Facility Name Feb 23, 2025 02:30 PM AMBULATORY - PSYCHIATRY [facility] April 08, 2025 03:00 PM AMBULATORY - PSYCHIATRY [facility] Jun 29, 2025 02:30 PM AMBULATORY - MEDICINE [facility] Active, Pending, and Scheduled Orders This section includes a listing of several types of active, pending, and scheduled orders, including clinic medications orders, diagnostic test orders, procedure orders and consult orders; where the start date of the order is 45 days before the date of the Encounter or 45 days after the date of theEncounter. The data comes from all [place] treatment facilities. Test Date/Time Test Type Test Details Facility Name Feb 12, 2025 12:00 AM Laboratory - Chemistry Order BASIC METABOLIC PANEL (non-fasting) BLOOD [facility] Feb 12, 2025 12:00 AM Laboratory - Chemistry Order LIPID PANEL FASTING BLOOD (SST[facility]SERUM) [facility] Feb 12, 2025 12:00 AM Laboratory - Chemistry Order HEMOGLOBIN A1C PANEL BLOOD (LAV[facility]BLOOD) [facility] Feb 12, 2025 12:00 AM Laboratory - Chemistry Order MICROALBUMIN CREATININE RATIO PANEL URINE ([facility] Social History: Smoking Status (Most current) and Tobacco Use (All prior to encounter date) This section includes the most current, and the historical, smoking and tobacco- related health factors from the [place] facility where the Encounter took place. Current Smoking Status This section includes the most current smoking, or tobacco-related health factor, from the [place] facility where the Encounter took place. Date/Time Current Smoking Status Comment Bell romero Dec 09, 2023 01:00 PM [facility]TOBACCO [facility] Tobacco Use History This section includes a history of the smoking, or tobacco-related health factors, that were collected on or before the date of the Encounter. The data comes from the [place] facility where the Encounter took place. Date/Time Smoking Status/Tobacco Use Comment Chung acabby Jan 04, 2023 03:00 PM VA-TOBACCO NEVER USED [place] [facility] [place] [facility] Feb 20, 2021 11:30 AM [facility]BACCO [facility] [place] [facility] Feb 18, 2020 09:39 AM [facility]ACCO [facility] Dec 02, 2018 03:30 PM VA-TOBACCO [facility]ER [facility] Dec 02, 2018 03:30 PM VA-TOBACCO QUIT 15 YRS OR MORE [facility] Feb 28, 2018 02:37 PM QUIT TOBACCO USE > 7 YEARS AGO [facility] Nov 23, 2016 10:49 AM LIFETIME NON-TOBACCO USER [facility] April 10, 2005 09:23 AM LIFETIME NON-SMOKER [facility] April 10, 2005 09:23 AM LIFETIME NON-TOBACCO USER [facility] Advance Directives: All historical and current Section Date Range: From patient's date of to the date document was created. This section includes ALL of a patient's completed or amended VA Advance and Rescinded Directives. The entries below indicate that a directive exists for the patient, but an actual copy is not included with this document. The data comes from all [place] facilities. Date Advance Directives Provider Source Sep 08, 2009 ADVANCE DIRECTIVE CHOLO CONRAD [facility] Encounter Notes: All associated encounter notes This section contains the clinical notes associated to the Encounter. Date/Time Encounter Note(s) Provider Source Jan 14, 2025 10:34 AM NURSING NOTE: LOCAL TITLE: NURSING NOTE STANDARD TITLE: NURSING NOTE DATE OF NOTE: JAN 14, 2025@10:34 ENTRY DATE: JAN 14, 2025@10:34:48 AUTHOR: FREDRICK CARVER EXP COSIGNER: URGENCY: STATUS: COMPLETED Spoke with Mr Nolasco and introduced myself and my role. Told him I would be checking in from time to time to see if there is anything that the [facility] can do to help so that she gets the care that she needs. He appreciated the call and said right now they have a lot of appointments that they are finding tiring but getting through it. They will meet with someone next week to determine what treatment will be available. I told him he would get information from us and that we offer support in all types of ways. He was thankful. /rajeev/ Fredrick Carver RN, BSN Women's Healthcare Navigator, RN Signed: 01/14/2025 10:37 FREDRICK CARVER [facility]
--- OUTSIDE RECORDS SUMMARY | 2025-01-25 15:08 | XMS_ITS | Continuity of Care Document ---
Author Name [facility] Organization [facility] Care Team Providers Care Security Public Safety Officer Name Role Phone [facility] Unavailable Unavailable Problems Combined list of problems from Department of Defense and Veterans Affairs facilities. It does not include entries that were removed or entered in error. Problem Status Onset Date Problem Type Date of Resolution Comments Source Headache * (ICD-9-CM 784.0) Active 010 Condition [facility] Adjustment disorder with anxious mood (SNOMED CT 89564650) Active Condition [facility] Allergic rhinitis Active Condition [facility] Depression (SNOMED CT 76889865) Active Condition Nov 24, 2010 Entered By: [...] CONRADO - Generalized anxiety disorder (SNOMED CT 85616394) Active Condition Mar 12, 2019 Entered By: [...] [facility] Hyperlipidemia (SNOMED CT 31526679) Active Condition [facility] Hypertension (SNOMED CT 84253459) Active Condition [facility] Hysterectomy * (ICD-9-CM 621.8) Active Condition [facility] Hysterectomy * (ICD-9-CM 621.8) Active Condition [...] stable on MRI 01/31, repeat ordered for [facility] Laboratory test result abnormal Active Condition Mar 17, 2015 Entered By: ELTON PICKARD Comment: HAILEY 1: 160 speckled and homogeneous [facility] Obesity (SNOMED CT 033698329) Active Condition [facility] OBSTRUCTIVE SLEEP APNEA Active Condition [facility] Other Specified Aftercare Following Surgery (ICD-9-CM V58.49) Active Condition [facility] Other Specified Preoperative Examination (ICD-9-CM V72.83) Active Condition [facility] Postmenopausal Bleeding Active Condition [facility] Shingles Active Condition [facility] Sleep apnea Active Condition [facility]omatization Disorder Active Condition [facility] Type 2 diabetes mellitus (SNOMED CT 85894741) Active Condition [facility] Uterine Fibroids Active Condition [facility] Abdominal Pain Inactive Condition 10/28/2010 Jul 09, 2007 Entered By: JOSE DANIEL SHEPARD Comment: egd 05/24 by sreekanth barlow md [phone] negative [facility] Acculturation [...] 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 [facility] Diagnosis: ICD-10-CM E11.9 Type 2 diabetes mellitus without complications Active Diagnosis [facility] Diagnosis: ICD-10-CM F41.1 Generalized anxiety disorder Active Diagnosis [place] Diagnosis: ICD-10-CM Z13.6 Encounter for screening for cardiovascular disorders Active Diagnosis [facility] Diagnosis: ICD-10-CM H26.8 Other specified cataract Active Diagnosis [facility] Diagnosis: ICD-10-CM Z71.89 Other specified counseling Active Diagnosis [facility] Diagnosis: ICD-10-CM R21 Rash and other nonspecific skin eruption Active Diagnosis [facility] Diagnosis: ICD-10-CM Z13.89 Encounter for screening for other disorder Active Diagnosis [place] Diagnosis: ICD-10-CM Z12.11 Encounter for screening for malignant neoplasm of colon Active Diagnosis [facility] Medications Combined list of outpatient medications [...] WITH GRAPEFRU IT JUICE ORAL ACTIVE 09/15/2025 [id number] YOVANI ESCALANTEA RADHA 2023 90 [facility] AMLODIPINE BESYLATE 5MG TAB TAKE ONE TABLET BY MOUTH ONCE DAILY FOR BLOOD PRESSURE /HEART, DO NOT TAKE WITH GRAPEFRU IT JUICE ORAL DISCONT INUED 07/17/2025 [id number] AVA YAHAIRA RADHA 2023 90 [facility] AMLODIPINE BESYLATE 5MG TAB TAKE ONE TABLET BY MOUTH ONCE DAILY FOR BLOOD PRESSURE /HEART, DO NOT TAKE WITH GRAPEFRU IT JUICE ORAL DISCONT INUED 08/12/2024 [id number] SVETLANA WEATHERS JAWED 2022 90 [facility] ASCORBIC ACID 500MG TAB TAKE ONE TABLET BY MOUTH DAILY ORAL ACTIVE MIHAELA PICKARD 2011 [facility] ATENOLOL 100MG TAB TAKE ONE TABLET BY MOUTH AT BEDTIME FOR BLOOD PRESSURE /HEART ORAL ACTIVE 02/25/2025 [id number] AVA, YAHAIRA RADHA 2023 90 [facility] ATENOLOL 100MG TAB TAKE ONE TABLET BY MOUTH AT BEDTIME FOR BLOOD PRESSURE /HEART ORAL DISCONT INUED 03/05/2024 [id number] LENORAN ICOLE 2022 90 [facility] ATORVASTATI N CA 40MG TAB TAKE ONE-HALF TABLET BY MOUTH DAILY FOR CHOLESTE ROL ORAL ACTIVE 04/09/2025 [id number] 5 YOVANI ESCALANTEA RADHA 2023 45 [facility] ATORVASTATI N CA 40MG TAB TAKE ONE-HALF TABLET BY MOUTH DAILY FOR CHOLESTE ROL ORAL DISCONT INUED 04/03/2024 [id number] LENORAN ICOLE 2022 45 [facility] CETIRIZINE HCL 10MG TAB TAKE ONE TABLET BY MOUTH ONCE DAILY ORAL ACTIVE Nadja COOLEY ICOLE 2018 [facility] CHOLECALCIF ALEX 25MCG (1,000UNIT) TAB TAKE ONE TABLET BY MOUTH ONCE DAILY ORAL ACTIVE Nadja COOLEY ICOLE 2020 [facility] DEXTROMETHO RPHAN HBR 10MG/GUAIFE NESIN 100MG/5ML (SF & AF) SYRUP TAKE 2 TEASPOON FULS BY MOUTH THREE TIMES DAILY NEEDED ORAL ACTIVE AZAEL CASTELLON 2017 [facility] DULOXETINE HCL 20MG CAP,EC TAKE TWO CAPSULES BY MOUTH ONCE DAILY DEPRESSI ON ORAL DISCONT INUED (EDIT) 06/21/2024 [id number] Thaddeus ZHANG 2022 60 [place] DULOXETINE HCL 30MG CAP,EC TAKE ONE CAPSULE BY MOUTH TWICE DAILY DEPRESSI ON ORAL ACTIVE 09/05/2025 [id number] Thaddeus ZHANG 2023 120 [place] DULOXETINE HCL 30MG CAP,EC TAKE ONE CAPSULE BY MOUTH TWICE DAILY ORAL DISCONT INUED (EDIT) 12/24/2024 [id number] Thaddeus ZHANG 2023 60 [place] EMPAGLIFLOZ IN 10MG TAB TAKE ONE TABLET BY MOUTH ONCE DAILY FOR TYPE 2 DIABETES MELLITUS ORAL ACTIVE 04/08/2025 [id number] ANNALISA MARTINEZ 2023 90 [facility] EMPAGLIFLOZ IN 10MG TAB TAKE ONE TABLET BY MOUTH ONCE DAILY FOR TYPE 2 DIABETES MELLITUS TO REPLACE METFORMI N ORAL DISCONT INUED BY PROVIDE R 08/23/2024 [id number] 4 Nadja COOLEY ICOLE 2022 90 [facility] [...] FLUID/CO NTROL BLOOD PRESSURE ORAL ACTIVE 04/25/2025 [id number] 4 YAHAIRA ESCALANTE 2023 90 [facility] HYDROCHLORO THIAZIDE 25MG TAB TAKE ONE TABLET BY MOUTH DAILY TO PREVENT FLUID/CO NTROL BLOOD PRESSURE ORAL DISCONT INUED 03/18/2024 [id number] 4 Nadja COOLEY ICOLE 2022 90 [facility] HYDROXYZINE HCL 10MG TAB TAKE ONE TABLET BY MOUTH AT BEDTIME NEEDED FOR INSOMNIA ORAL ACTIVE 07/09/2025 [id number] Thaddeus ZHANG 2023 30 [place] HYDROXYZINE HCL 10MG TAB TAKE ONE TABLET BY MOUTH AT BEDTIME NEEDED FOR INSOMNIA ORAL DISCONT INUED (EDIT) 04/09/2025 [id number] 4 AVA, YAHAIRA RADHA 2023 15 [facility] [facility] [place] [facility] HYDROXYZINE HCL 10MG TAB TAKE ONE TABLET BY MOUTH AT BEDTIME NEEDED FOR INSOMNIA ORAL DISCONT INUED 12/24/2024 [id number] Thaddeus ZHNAG G 2023 15 [place] IBUPROFEN 600MG TAB TAKE ONE TABLET BY MOUTH THREE TIMES A DAY NEEDED ORAL ACTIVE IVELISSEZACK TH M 2016 [facility] [place] [place]AN POTASSIUM 100MG TAB TAKE ONE TABLET BY MOUTH ONCE DAILY FOR BLOOD PRESSURE /HEART ORAL SUSPEND ED 01/20/2026 [id number] 5 AVA, YAHAIRA RADHA 2024 90 [facility] [place] [place] POTASSIUM 100MG TAB TAKE ONE TABLET BY MOUTH ONCE DAILY FOR BLOOD PRESSURE /HEART ORAL DISCONT INUED 04/09/2025 [id number] AVA, YAHAIRA RADHA 2023 90 [facility] [place] POTASSIUM 100MG TAB TAKE ONE TABLET BY MOUTH ONCE DAILY FOR BLOOD PRESSURE /HEART ORAL DISCONT INUED 04/03/2024 [id number] 4 KIRCHEN,N ICOLE 2022 90 [facility] MELATONIN CAP/TAB TAKE BY MOUTH ORAL ACTIVE Thaddeus ZHANG G 2023 [facility] MULTIVITAMI N W/MINERAL TAB TAKE BY MOUTH ORAL ACTIVE ZASHIN,LY NN S 2014 [facility] OMEPRAZOLE 20MG CAP,EC TAKE ONE CAPSULE BY MOUTH EVERY MORNING 30 MINUTES BEFORE BREAKFAS T FOR REFLUX ORAL ACTIVE 04/09/2025 [id number] 4 AVA, YAHAIRA RADHA 2023 90 [facility] POLYVINYL ALCOHOL 1.4% SOLN,OPH INSTILL 1 DROP INTO EACH EYE FOUR TIMES A DAY OPHTHA LMIC ACTIVE Octavio ALCANTAR 2021 [facility] SEMAGLUTIDE 0.25MG/0.37 5ML INJ,SOLN,PE N,3ML INJECT 0.5MG SUBCUTAN EOUSLY ONCE A WEEK SUBCUT ANEOUS DISCONT INUED BY PROVIDE R 03/06/2025 [id number] ANNALISA MARTINEZ 2023 1 [facility] SEMAGLUTIDE 0.25MG/0.37 5ML INJ,SOLN,PE N,3ML INJECT 0.25MG SUBCUTAN EOUSLY ONCE A WEEK FOR 4 WEEKS, THEN INJECT 0.5MG ONCE A WEEK FOR 2 WEEKS SUBCUT ANEOUS DISCONT INUED BY PROVIDE R 03/25/2024 [id number] ANNALISA MARTINEZ 2023 1 [facility] SEMAGLUTIDE 1MG/0.75ML INJ,SOLN,PE N,3ML INJECT 1MG SUBCUTAN EOUSLY ONCE A WEEK SUBCUT ANEOUS ACTIVE 04/16/2025 [id number] 4 ANNALISA MARTINEZ 2023 1 [facility] TRIAMCINOLO NE ACETONIDE 0.1% OINT,TOP APPLY SMALL AMOUNT TOPICALL Y TWICE DAILY DIRECTED TOPICA L DISCONT INUED 04/17/2024 [id number] YAHAIRA ESCALANTE 2023 454 [facility] [place] TRIAMCINOLO NE ACETONIDE 0.1% OINT,TOP APPLY SMALL AMOUNT TOPICALL Y TWICE DAILY DIRECTED TOPICA L 05/17/2024 [id number] 4 YAHAIRA ESCALANTE 2023 454 [facility] Allergies, Adverse Reactions, Alerts Combined list of allergies from Department of Defense and Veterans Affairs facilities. It does not include entries that were removed or entered in error. Substance Category Reaction Severity Reaction type Status Date Reported Comments Source ASPIRIN RELATED MEDICATIONS Propensity to adverse reactions to drug (finding) Nausea and vomiting MILD active 4 [facility] DILAUDID Propensity to adverse reactions to drug (finding) Itching, Eruption active 0 [facility] DILAUDID INJECTION 1 MG/ML Propensity to adverse reactions to drug (finding) Nausea and vomiting MODERATE active 9 [facility] MORPHINE Propensity to adverse reactions to drug (finding) Itching SEVERE active 9 [facility] MORPHINE Propensity to adverse reactions to drug (finding) active 0 [facility] OMEPRAZOLE Propensity to adverse reactions to drug (finding) Urticaria active 7 [facility] OMEPRAZOLE Propensity to adverse reactions to drug (finding) active 9 [facility] Immunizations Combined list of available immunizations from the Department of Defense and Veterans Affairs facilities. Immunization Series Date Given Administered By Site Reaction Lot Number CVX Code Drug Inside Account Representative Status Comments Source INFLUENZA, SPLIT VIRUS, TRIVALENT, PF 2023 LEVI BETANCUR RIGHT DELTO ID [id number] 140 complet ed [facility] INFLUENZA, INJECTABLE, QUADRIVALENT, PRESERVATIVE FREE 2022 CARLIE KISER RIGHT DELTO ID [id number] 150 complet ed [facility] PNEUMOCOCCAL CONJUGATE PCV20, POLYSACCHARID E [id number] CONJUGATE, ADJUVANT, PF 2022 CARLIE KISER LEFT DELTO ID [id number] 216 complet ed [facility] INFLUENZA, INJECTABLE, QUADRIVALENT, PRESERVATIVE FREE 2021 SUNITA GERARD LEFT DELTO ID [id number] 150 complet ed [facility] COVID-19 (MODERNA), MRNA, LNP-S, PF, 100 MCG OR 50 MCG DOSE 3 2020 207 complet ed MOD; [id number]; 2 [place] INFLUENZA, UNSPECIFIED FORMULATION 2020 88 complet ed [facility] TD (ADULT), 5 LF TETANUS TOXOID, PRESERVATIVE FREE, ADSORBED 2020 113 complet ed [facility] ZOSTER RECOMBINANT 2 2020 187 complet ed [facility] COVID-19 (MODERNA), MRNA, LNP-S, PF, 100 MCG/0.5 ML DOSE 2 2020 207 complet ed MOD; [id number]; 1 [place] COVID-19 (MODERNA), MRNA, LNP-S, PF, 100 MCG/0.5 ML DOSE 1 2020 207 complet ed MOD; [id number]; 1 [place] INFLUENZA, INJECTABLE, QUADRIVALENT, PRESERVATIVE [...] FLU,3 YRS (HISTORICAL) 2008 88 complet ed [facility] FLU,3 YRS (HISTORICAL) 2008 88 complet ed [...] 2003 JUAN BORGES 88 comple t ed [place] Results Combined list of recent chemistry, [...] Sep 14, 2024 02:24 PM Reporting Lab: [facility] [facility] [place] [address] [address] Performing Lab: [place] [facility] [place] [facility] [address] [facility] [address] [place] [facility] [place] [facility] MICROALB UMIN CREATINI NE RATIO PANEL MICROALBUM IN/CREATIN INE [MASS RATIO] IN URINE cancmg/g 0 - 29.9 09/14 Specimen Type: URINE No comment entered. Ordering Provider: PUNEET ESCALANTE SA Report Released Date/Time: Sep 14, 2024 02:25 PM Reporting Lab: [facility] [address] Performing Lab: [place] [facility] [place] [address] [facility] [place] [facility] MICROALB UMIN CREATINI NE RATIO PANEL MICROALBUM IN [MASS/VOLU ME] IN URINE < 0.5mg/dL 09/14 Specimen Type: URINE No comment entered. Ordering Provider: PUNEET ESCALANTE SA Report Released Date/Time: Sep 14, 2024 02:25 PM Reporting Lab: [facility] [address] Performing Lab: [facility] [address] [facility] [place] MICROALB UMIN CREATINI NE RATIO PANEL CREATININE [MASS/VOLU ME] IN URINE 27.03 mg/dL 09/14 Specimen Type: URINE No comment entered. Ordering Provider: PUNEET ESCALANTE SA Report Released Date/Time: Sep 14, 2024 02:25 PM Reporting Lab: [facility] [address] Performing Lab: [place] [facility] [place] [address] [facility] HEMOGLOB IN A1C PANEL HEMOGLOBIN A1C/HEMOGL OBIN.TOTAL [...] be between 8.73 and 9.27. Ref: [email or web address] Ordering Provider: PUNEET ESCALANTE SA Report Released Date/Time: April 17, 2024 01:15 PM Reporting Lab: [facility] [address] [facility] [address] Performing Lab: [facility] [address] [facility] [address] [facility] CBC LEUKOCYTES [#/VOLUME] IN BLOOD BY AUTOMATED COUNT 9.47 10*3/uL 4.50 - 11.00 04/21 Specimen Type: BLOOD No comment entered. Ordering Provider: PUNEET ESCALANTE SA Report Released Date/Time: April 17, 2024 01:15 PM Reporting Lab: [facility] [address] [facility] [address] Performing Lab: [facility] [address] [facility] [address] [facility] CBC ERYTHROCYT ES [#/VOLUME] IN BLOOD BY AUTOMATED COUNT 4.60 10*6/uL 3.93 - 5.16 04/21 Specimen Type: BLOOD No comment entered. Ordering Provider: PUNEET ESCALANTE SA Report Released Date/Time: April 17, 2024 01:15 PM Reporting Lab: [facility] [address] [facility] [address] Performing Lab: [facility] [address] [facility] [address] [facility] [facility] CBC HEMOGLOBIN [MASS/VOLU ME] IN BLOOD 13.9 g/dL 12 - 15.2 04/21 Specimen Type: BLOOD No comment entered. Ordering Provider: PUNEET ESCALANTE SA Report Released Date/Time: April 17, 2024 01:15 PM Reporting Lab: [facility] [address] [facility] [address] Performing Lab: [facility] [address] [facility] [address] [facility] [place] [facility] CBC HEMATOCRIT [VOLUME FRACTION] OF BLOOD BY AUTOMATED COUNT 42.2 36.6 - 45.6 04/21 Specimen Type: BLOOD No comment entered. Ordering Provider: PUNEET ESCALANTE SA Report Released Date/Time: April 17, 2024 01:15 PM Reporting Lab: [facility] [place] [facility] [address] [facility] [address] Performing Lab: [facility] [place] [facility] [address] [facility] [address] [facility] [facility] CBC MCV [ENTITIC VOLUME] BY AUTOMATED COUNT 91.7 fL 82 - 99 04/21 Specimen Type: BLOOD No comment entered. Ordering Provider: PUNEET ESCALANTE SA Report Released Date/Time: April 17, 2024 01:15 PM Reporting Lab: [facility] [place] [facility] [address] [facility] [address] Performing Lab: [facility] [place] [address] [address] [facility] [facility] CBC MCHC [MASS/VOLU ME] BY AUTOMATED COUNT 32.9 g/dL 30.8 - 35.1 04/21 Specimen Type: BLOOD No comment entered. Ordering Provider: PUNEET ESCALANTE SA Report Released Date/Time: April 17, 2024 01:15 PM Reporting Lab: [facility] [place] [address] [address] Performing Lab: [facility] [place] [facility] [address] [facility] [address] [facility] CBC PLATELETS [#/VOLUME] IN BLOOD BY AUTOMATED COUNT 244 10*3/uL 140 - 360 04/21 Specimen Type: BLOOD No comment entered. Ordering Provider: PUNEET ESCALANTE SA Report Released Date/Time: April 17, 2024 01:15 PM Reporting Lab: [facility] [place] [facility] [address] [facility] [address] Performing Lab: [facility] [place] [address] [address] [facility] [place] [facility] CBC ERYTHROCYT E DISTRIBUTI ON WIDTH [RATIO] BY AUTOMATED COUNT 12.4 12.0 - 16.0 04/21 Specimen Type: BLOOD No comment entered. Ordering Provider: PUNEET ESCALANTE SA Report Released Date/Time: April 17, 2024 01:15 PM Reporting Lab: [facility] [address] [address] Performing Lab: [facility] [address] [address] [facility] CBC MCH [ENTITIC MASS] BY AUTOMATED COUNT 30.2 pg 26.2 - 32.6 04/21 Specimen Type: BLOOD No comment entered. Ordering Provider: PUNEET ESCALANTE SA Report Released Date/Time: April 17, 2024 01:15 PM Reporting Lab: [address] [address] Performing Lab: [address] [address] [facility] BASIC METABOLI C PANEL (non-fas ting) UREA NITROGEN [MASS/VOLU ME] IN SERUM OR PLASMA 15 mg/dL 7 - 25 04/21 Specimen Type: SERUM No comment entered. Ordering Provider: PUNEET ESCALANTE SA Report Released Date/Time: April 17, 2024 01:15 PM Reporting Lab: [address] [address] Performing Lab: [facility] [address] [facility] BASIC METABOLI C PANEL (non-fas ting) GLUCOSE [MASS/VOLU ME] IN SERUM OR PLASMA 140 mg/dL 65 - 100 04/21 H Specimen Type: SERUM No comment entered. Ordering Provider: PUNEET ESCALANTE SA Report Released Date/Time: April 17, 2024 01:15 PM Reporting Lab: [address] [address] Performing Lab: [facility] [place] [facility] [address] [facility] [address] [place] [facility] [place] [facility] BASIC METABOLI C PANEL (non-fas ting) SODIUM [MOLES/VOL UME] IN SERUM OR PLASMA 135 mmol/L 135 - 145 04/21 Specimen Type: SERUM No comment entered. Ordering Provider: PUNEET ESCALANTE SA Report Released Date/Time: April 17, 2024 01:15 PM Reporting Lab: [place] [facility] [facility] [address] [facility] [address] Performing Lab: [place] [facility] [address] [facility] [address] [facility] [place] [facility] BASIC METABOLI C PANEL (non-fas ting) POTASSIUM [MOLES/VOL UME] IN SERUM OR PLASMA 3.9 mmol/L 3.5 - 5.0 04/21 Specimen Type: SERUM No comment entered. Ordering Provider: PUNEET ESCALANTE SA Report Released Date/Time: April 17, 2024 01:15 PM Reporting Lab: [facility] [place] [facility] [address] [facility] [address] Performing Lab: [place] [facility] [address] [facility] [address] [facility]N [facility] BASIC METABOLI C PANEL (non-fas ting) CHLORIDE [MOLES/VOL UME] IN SERUM OR PLASMA 100 mmol/L 100 - 110 04/21 Specimen Type: SERUM No comment entered. Ordering Provider: PUNEET ESCALANTE SA Report Released Date/Time: April 17, 2024 01:15 PM Reporting Lab: [place] [facility] [place] [address] [address] Performing Lab: [place] [facility] [address] [address] [facility] BASIC METABOLI C PANEL (non-fas ting) CARBON DIOXIDE, TOTAL [MOLES/VOL UME] IN SERUM OR PLASMA 26 meq/L 20 - 30 04/21 Specimen Type: SERUM No comment entered. Ordering Provider: PUNEET ESCALANTE SA Report Released Date/Time: April 17, 2024 01:15 PM Reporting Lab: [address] [address] Performing Lab: [address] [address] [facility] BASIC METABOLI C PANEL (non-fas ting) CREATININE [MASS/VOLU ME] IN SERUM OR PLASMA 0.69 mg/dL 0.50 - 1.40 04/21 Specimen Type: SERUM No comment entered. Ordering Provider: PUNEET ESCALANTE SA Report Released Date/Time: April 17, 2024 01:15 PM Reporting Lab: [address] [address] Performing Lab: [address] [address] [facility] BASIC METABOLI C PANEL (non-fas ting) GLOMERULAR FILTRATION RATE/1.73 SQ M.PREDICTE D [VOLUME RATE/AREA] IN SERUM, PLASMA OR BLOOD BY CREATININE -BASED FORMULA (CKD-EPI 2020) >90mL/mi n 60 04/21 Specimen Type: SERUM No comment entered. Ordering Provider: PUNEET ESCALANTE SA Report Released Date/Time: April 17, 2024 01:15 PM Reporting Lab: [address] [address] Performing Lab: [address] [address] [facility] LYME SEROLOGY PANEL BORRELIA BURGDORFER I AB.IGG [...] of the panel were validated at the [facility]. Results are considered positive only if [...] Dec 09, 2023 01:48 PM Reporting Lab: [facility] [address] [facility] [address] Performing Lab: [facility] [address] [facility] [address] [facility] LYME SEROLOGY PANEL BORRELIA BURGDORFER I AB [...] of the panel were validated at the [facility]. Results are considered positive only if [...] Dec 09, 2023 01:48 PM Reporting Lab: [facility] [address] [facility] [address] Performing Lab: [facility] [address] [facility] [address] [facility] ANAPLASM A AND EHRLICHI A AB [...] performance characteris tics have been determined by [employer] [place], [place], [place]. It has not been cleared or [...] performance characteris tics have been determined by [employer] [place], [place]. It has not been cleared or approved by the U.S. Food and Drug Administrat ion. This assay has been validated pursuant to the CLIA regulations and is used for clinical purposes. Test Performed by [facility], [facility], [address] [place] [address] Chris Bone M.D., Ph.D., Director of Laboratorie s , CLIA [id number] TEST PERFORMED AT: , Ordering Provider: PUNEET ESCALANTE SA Report Released Date/Time: Dec 09, 2023 01:48 PM Reporting Lab: [facility] [address] [facility] [address] Performing Lab: [facility] [address] [address] [facility] ANAPLASM A AND EHRLICHI A AB [...] performance characteris tics have been determined by [facility] [place]. It has not been cleared or [...] performance characteris tics have been determined by [facility] [place]. It has not been cleared or approved by the U.S. Food and Drug Administrat ion. This assay has been validated pursuant to the CLIA regulations and is used for clinical purposes. Test Performed by [facility], [facility], [address] [place] [address] Chris Bone M.D., Ph.D., Director of Laboratorie s , CLIA [id number] TEST PERFORMED AT: , Ordering Provider: PUNEET ESCALANTE SA Report Released Date/Time: Dec 09, 2023 01:48 PM Reporting Lab: [facility] [address] [facility] [address] Performing Lab: [facility] [address] [address] [facility] ANAPLASM A AND EHRLICHI A AB [...] performance characteris tics have been determined by [facility]. It has not been cleared or [...] performance characteris tics have been determined by [facility]. It has not been cleared or approved by the U.S. Food and Drug Administrat ion. This assay has been validated pursuant to the CLIA regulations and is used for clinical purposes. Test Performed by [facility], [employer] [place], [address] [place] [address] Chris Bone M.D., Ph.D., Director of Laboratorie s , CLIA [id number] TEST PERFORMED AT: , Ordering Provider: PUNEET ESCALANTE SA Report Released Date/Time: Dec 09, 2023 01:48 PM Reporting Lab: [facility] [address] [facility] [address] Performing Lab: [address] [place], [address] [facility] [address] [place] [facility] [facility] [facility] ANAPLASM A AND EHRLICHI A AB [...] performance characteris tics have been determined by [facility] It has not been cleared or [...] performance characteris tics have been determined by [facility]. It has not been cleared or approved by the U.S. Food and Drug Administrat ion. This assay has been validated pursuant to the CLIA regulations and is used for clinical purposes. Test Performed by [facility], [employer] [place], [address] [place] [address] Chris Bone M.D., Ph.D., Director of Laboratorie s , CLIA [id number] TEST PERFORMED AT: , Ordering Provider: PUNEET ESCALANTE SA Report Released Date/Time: Dec 09, 2023 01:48 PM Reporting Lab: [facility] [address] [facility] [address] Performing Lab: [facility] [address] [address] [facility] ANAPLASM A AND EHRLICHI A AB [...] performance characteris tics have been determined by [facility], [place]. It has not been cleared or [...] performance characteris tics have been determined by [facility] It has not been cleared or approved by the U.S. Food and Drug Administrat ion. This assay has been validated pursuant to the CLIA regulations and is used for clinical purposes. Test Performed by [facility], [facility] [place], [address] [place], [place] Chris Bone M.D., Ph.D., Director of Laboratorie s , CLIA [id number] TEST PERFORMED AT: , Ordering Provider: PUNEET ESCALANTE SA Report Released Date/Time: Dec 09, 2023 01:48 PM Reporting Lab: [facility] [address] [facility] [address] Performing Lab: [facility] [address] [address] [facility] ANAPLASM A AND EHRLICHI A AB [...] performance characteris tics have been determined by [facility], [place]. It has not been cleared or [...] performance characteris tics have been determined by [facility] [place]. It has not been cleared or approved by the U.S. Food and Drug Administrat ion. This assay has been validated pursuant to the CLIA regulations and is used for clinical purposes. Test Performed by [facility], [facility], [address] [place] [address] Chris Bone M.D., Ph.D., Director of Laboratorie s , CLIA [id number] TEST PERFORMED AT: , Ordering Provider: PUNEET ESCALANTE SA Report Released Date/Time: Dec 09, 2023 01:48 PM Reporting Lab: [facility] [place] [address] [address] Performing Lab: [facility] [place] [facility] [address] [place] [facility] VITAMIN D (25-OH) 25-HYDROXY VITAMIN D3 [MASS/VOLU ME] IN SERUM OR PLASMA 52 ng/mL 20 - 50 12/09 H Specimen Type: SERUM No comment entered. Ordering Provider: PUNEET ESCALANTE SA Report Released Date/Time: Dec 09, 2023 01:48 PM Reporting Lab: [place] [facility] [address] [address] Performing Lab: [place] [facility] [address] [address] [facility] [place] [facility] VITAMIN B12 COBALAMIN (VITAMIN B12) [MASS/VOLU ME] IN SERUM OR PLASMA >2000pg/ mL 200 - 900 12/09 H Specimen Type: SERUM No comment entered. Ordering Provider: PUNEET ESCALANTE SA Report Released Date/Time: Dec 09, 2023 01:48 PM Reporting Lab: [facility] [place] [facility] [address] [facility] [address] Performing Lab: [place] [facility] [address] [address] [facility] [place] [facility] HEMOGLOB IN A1C PANEL HEMOGLOBIN A1C/HEMOGL OBIN.TOTAL [...] Dec 09, 2023 01:48 PM Reporting Lab: [place] [facility] [place] [facility] [address] [facility] [address] Performing Lab: [place] [facility] [place] [facility] [address] [facility] [address] [place] [facility] [facility] Vital Signs Combined list of inpatient and outpatient Vital Signs from Department of Defense and Veterans Affairs, ranging from 12 months to all on record, depending upon the facility. Vital Sign Value Date Comments Source SYSTOLIC BLOOD PRESSURE 117 09/14/20 24 14:16:41 [facility] [place] [facility] DIASTOLIC BLOOD PRESSURE 76 024 14:16:41 [facility] [place] [facility] PULSE OXIMETRY 96 09/14/2024 14:16:41 [facility] [place] [facility] WEIGHT 164.7 09/14/2024 14:16:41 [facility] [place] [facility] BMI 31 kg/m2 09/14/2024 14:16:41 [facility] [place] [facility] PAIN 0 09/14/2024 14:16:41 [facility] [place] [facility] TEMPERATURE 98.1 09/14/2024 14:16:41 [facility] [place] [facility] PULSE 81 09/14/2024 14:16:41 [facility] [place] [facility] RESPIRATION 14 09/14/2024 14:16:41 [facility] [place] [facility] SYSTOLIC BLOOD PRESSURE 121 03/18/20 24 14:38:41 [...] included; 2) Encounters from the Department of Defense facilities going backup to 280 months. Location Location Details Encounter Type Encounter Number Reason For Visit Attending Provider ADM Date DC Date Status Disposition Source [facility] [place] En[facility] [id number] 08/09 [facility] [place] [facility] [place] OFF[place] O/P EST MOD 30-39 MIN [id number] Diagnos is: ICD-10- CM F41.1 General ized anxiety disorde r ST MARTI ZHANG G 08/14 [place] [facility] DETERMINE REFRACTIVE STATE [id number] Diagnos is: ICD-10- CM E11.9 Type 2 diabete s mellitu s without complic ations DEISY ALCANTAR 08/15 [facility] Out[facility] Encounter [id number] 08/22 [facility] [place] [facility] Outpatient Encounter [id number] 08/23 [facility] [place] OFF[facility] O/P EST LOW 20-29 MIN [id number] Diagnos is: ICD-10- CM E11.9 Type 2 diabete s mellitu s without complic ations RAFFY COOLEY 08/23 [facility] [place] Outpatient Encounter [id number] 08/27 [facility] Encounter [id number] 09/03 [facility] [place] Outpatient Encounter [id number] 09/04 [facility] Out[facility] Encounter [id number] 09/05 [facility] Encounter [id number] 09/06 [facility] Out[facility] Encounter [id number] 09/24 [facility] [place] Out[place] En[place] [id number] 10/29 [place] [facility] Outpatient Encounter [id number] 11/26 [facility] Out[facility] Encounter [id number] 12/09 [facility] OFF[facility] O/P EST MOD 30 MIN [id number] Diagnos is: ICD-10- CM Z12.11 Encount er for screeni ng for maligna nt neoplas m of colon AVA,L VICTOR M RADHA 12/09 [facility] En[facility] [id number] 12/10 [facility] Encounter [id number] 12/12 [facility] Encounter [id number] 12/16 [facility] [place] [place] O/P EST MOD 30 MIN [id number] Diagnos is: ICD-10- CM F41.1 General ized anxiety disorde r ST MARTI ZHANG G 12/24 [place] [facility] MTMS BY PHARM ADDL 15 MIN [id number] Diagnos is: ICD-10- CM E11.9 Type 2 diabete s mellitu s without complic ations LIUDMILA MARTINEZ A 12/30 [facility] En[facility] [id number] 01/12 [facility] MTMS BY PHARM ADDL 15 MIN [id number] Diagnos is: ICD-10- CM E11.9 Type 2 diabete s mellitu s without complic ations GDRAMILA,LIUDMILA A 01/30 [facility] MTMS BY PHARM EST 15 MIN [id number] Diagnos is: ICD-10- CM E11.9 Type 2 diabete s mellitu s without complic ations LIUDMILA MARTINEZ A 02/02 [facility] QNHP OL DIG ASSMT&MGMT 5-10 [id number] Diagnos is: ICD-10- CM E11.9 Type 2 diabete s mellitu s without complic ations POPEYE BENSON 02/02 [facility] INTRM OPH EXAM EST PATIENT [id number] Diagnos is: ICD-10- CM E11.9 Type 2 diabete s mellitu s without complic ations DEISY ALCANTAR 02/03 [facility] MTMS BY PHARM ADDL 15 MIN [id number] Diagnos is: ICD-10- CM E11.9 Type 2 diabete s mellitu s without complic ations LIUDMILA MARTINEZ A 02/13 [facility] [id number] 02/16 [facility] Out[facility] Encounter [id number] 02/23 [facility] [place] O/P EST MOD 30 MIN [id number] Diagnos is: ICD-10- CM F33.8 Other recurre nt depress alli disorde rs LEATHA,ST ELSIEEN G 03/03 [place] [facility] MTMS BY PHARM EST 15 MIN [id number] Diagnos is: ICD-10- CM E11.9 Type 2 diabete s mellitu s without complic ations GDULA,LIUDMILA A 03/05 [facility] OFF[facility] O/P EST MOD 30 MIN [id number] Diagnos is: ICD-10- CM E11.9 Type 2 diabete s mellitu s without complic ations Fady ESCALANTE 03/18 [facility] Out[facility] En[facility] [id number] 03/31 [facility] En[facility] [id number] 04/05 [facility] MTMS BY PHARM EST 15 MIN [id number] Diagnos is: ICD-10- CM E11.9 Type 2 diabete s mellitu s without complic ations GDULA,LIUDMILA A 04/07 [facility] En[facility] [id number] 04/15 [facility] En[facility] [id number] 04/15 [facility] MTMS BY PHARM EST 15 MIN [id number] Diagnos is: ICD-10- CM E11.9 Type 2 diabete s mellitu s without complic ations GDULA,LIUDMILA A 04/15 [facility] [place] UNLISTED SPEC DERM SVC/PX [id number] Diagnos is: ICD-10- CM Z13.89 Encount er for screeni ng for other disorde r Kale SHELTON 04/16 [facility] Outpatient Encounter [id number] Diagnos is: ICD-10- CM R21 Rash and other nonspec ific skin eruptio n SAAD MICHAEL PH J 04/17 [facility] En[facility] [id number] 04/17 [facility] En[facility] [id number] 04/17 [facility] En[facility] [id number] 04/17 [facility] [place] [facility] HC PRO PHONE CALL 5-10 MIN [id number] Diagnos is: ICD-10- CM 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 PAUL BETANCUR 04/17 [facility] [place] [facility] OFF/OP EST MARCH X REQ PHY/QHP [id number] Diagnos is: ICD-10- CM H26.8 Other specifi ed catarac PAUL Guzmán 04/21 [facility] [place] [facility] ELECTROCAR DIOGRAM REPORT [id number] Diagnos is: ICD-10- CM Z13.6 Encount er for screeni ng for cardiov ascular disorde YASMIN Zarco 04/21 [place] [facility] [facility] Out[facility] Encounter [id number] 04/23 [facility] [place] Outpatient Encounter [id number] 04/27 [facility] [place] Outpatient Encounter [id number] 04/27 [facility] [place] O/P EST MOD 30 MIN [id number] Diagnos is: ICD-10- CM F41.1 General ized anxiety disorde r ST MARTI ZHANG G 04/28 [place] [facility] [place] [facility] MTMS BY PHARM EST 15 MIN [id number] 1. Diagnos is: ICD-10- CM E11.9 Type 2 diabete s mellitu s without complic ations GDULA,LIUDMILA A 05/05 [facility] [place] O/P EST MOD 30 MIN [id number] Diagnos is: ICD-10- CM F41.1 General ized anxiety disorde r ST MARTI ZHANG G 06/02 [facility] [place] [place] [facility] MTMS BY PHARM EST 15 MIN [id number] Diagnos is: ICD-10- CM E11.9 Type 2 diabete s mellitu s without complic ations GDULA,LIUDMILA A 06/04 [facility] [place] [facility] [place] Outpatient Encounter [id number] 06/05 [facility] [place] O/P EST MOD 30 MIN [id number] Diagnos is: ICD-10- CM F33.8 Other recurre nt depress alli disorde rs ST M[facility]I [facility]HANG G 07[facility] En[facility] [id number] 07/10 [facility] En[facility] [id number] 07/15 [facility] En[facility] [id number] 08/19 [facility] Encounter [id number] [facility] [place] [facility] [place] O/P EST MOD 30 MIN [id number] Diagnos is: ICD-10- CM F33.8 Other recurre nt depress alli disorde rs ST MARTI ZHANG G 09/04 [place] [facility] Outpatient Encounter [id number] 09/07 [place] [facility] Encounter [id number] 09/11 [facility] En[facility] [id number] [facility] Encounter [id number] 09/14 [facility] OFFICE O/P EST LOW 20 MIN [id number] 1. Diagnos is: ICD-10- CM Z23 Encount er for immuniz ation AVA,L VICTOR M RADHA 09/14 [facility] Encounter [id number]/14 [facility] INTRM OPH EXAM EST PATIENT [id number] Diagnos is: ICD-10- CM Z96.1 Presenc e of intraoc ular lens DEISY ALCANTAR 09/15 [facility] Outpatient Encounter [id number] 09/16 [facility] Encounter [id number] 1.09/24 [facility] En[facility] [id number] 11/12 [facility] Encounter [id number] 11/12 [facility] Encounter [id number] [facility] Encounter [id number] 12/09 [facility] Encounter [id number] 12/14 [facility] En[facility] [id number] 12/14 [facility] PH1 ASSMT&MGMT NQHP 21-30 [id number] Diagnos is: ICD-10- CM 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, 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 [place], [place] 12/14 [facility] En[facility] [id number] 12/16 [facility] Encounter [id number] 12/25 [facility] Out[facility] Encounter [id number] 12/31 [facility] PH1 ASSMT&MGMT NQHP 5-10 [id number] Diagnos is: ICD-10- CM 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 Social History Type Response Date Comment Sourc e Tobacco smoking status [facility] VA-TOBACCO NEVER USED 12/09/2023 [facility] History of tobacco use VA-TOBACCO NEVER USED 01/04/2023 [facility] History of tobacco use VA-TOBACCO NEVER USED [facility] History of tobacco use VA-TOBACCO NEVER USED 02/20/2021 [facility] History of tobacco use VA-TOBACCO NEVER USED 02/18/2020 [facility] History of tobacco use VA-TOBACCO QUIT 15 YRS OR MORE 12/02/2018 [facility] History of tobacco use QUIT TOBACCO USE > 7 YEARS AGO 02/28/2018 [facility] History of tobacco use LIFETIME NON-TOBACCO USER 11/23/2016 [facility] History of tobacco use LIFETIME NON-TOBACCO USER 11/29/2015 [facility] History of tobacco use LIFETIME NON-SMOKER 04/10/2005 [facility] Plan of Care List of future care activities from [facility] facilities. Additional future care activities may be listed in the Assessment and Plan section. Date/Time Care Activity Care Activity Detail Facili ty 02/23/2025 AMBULATORY - PSYCHIATRY AMBULATORY - [facility] 04/08/2025 AMBULATORY - PSYCHIATRY AM[facility]ATORY - [facility] 06/29/2025 AMBULATORY - MEDICINE AMBULATORY - [facility] 02/12/2025 Laboratory - [facility] LIPID PANEL FASTING BLOOD (SST-SERUM) [facility] 02/12/2025 Laboratory - [facility] Order HEMOGLOBIN A1C PANEL BLOOD (LAV-BLOOD) [facility] 02/12/2025 Laboratory - [facility] Order MICROALBUMIN CREATININE RATIO PANEL URINE (RANDOM) [facility] 02/12/2025 Laboratory - [facility] Order BASIC METABOLIC PANEL (non-fasting) BLOOD (SST-SERUM) [facility] Advance Directives List of completed, amended, or rescinded Advance Directives on record at [facility] facilities. An actual copy of the Directive is not included. Date Advance Directive Provider Source 09/08/2009 ADVANCE DIRECTIVE CHOLO CONRAD [facility]
--- OUTSIDE RECORDS SUMMARY | 2025-01-25 15:08 | XMS_ITS ---
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 Role Phone YAHAIRA ESCALANTE Primary [...] Bueno's Name Patient's Relationship to Policy Bueno [facility] Feb 28, 2004 Jul 01, 2026 [facility] [id number] ЕЛЕНА JORDAN PATIENT W/OME DICAR E Feb 28, 2004 Jul 01, 2026 [facility] [id number] ЕЛЕНА JORDAN PATIENT [facility] Feb 28, 2004 Jul 01, 2026 [id number] ЕЛЕНА JORDAN PATIENT [facility] Feb 28, 2004 Jul 01, 2026 [id number] [phone] KIKO JORDAN JR SPOUSE [facility] Feb 28, 2004 Jul 01, 2026 [id number] [phone] BUCKMORE, ЕЛЕНА PATIENT [facility] Feb 28, 2004 Jul 01, 2026 [id number] ЕЛЕНА JORDAN PATIENT [facility] Jun 18, 2015 Jul 01, 2026 [facility] [id number] ЕЛЕНА JORDAN PATIENT [facility] Jan 19, 2013 Jul 01, 2026 [facility] [id number] [phone] ЕЛЕНА JORDAN PATIENT [facility] Sep 22, 2012 Jul 01, 2026 [facility] [id number] [phone] 3 ЕЛЕНА JORDAN PATIENT [facility] Sep 22, 2012 Jul 01, 2026 [facility] [id number] KIKO JORDAN JR SPOUSE [facility] Sep 22, 2012 Jul 01, 2026 [facility] [id number] ЕЛЕНА OJRDAN PATIENT [facility] Feb 28, 2004 Jul 01, 2026 [facility] [id number] [phone] 7 ЕЛЕНА JORDAN PATIENT [facility]/SANDRA MARAN [facility] Jun 18, 2015 [facility] [id number] [phone] ЕЛЕНА JORDAN PATIENT Selected Encounter This section includes the information on record at [place] for the Encounter. Date/Time Encounter Type Encounter Description Reason Pro vider Source Jan 16, 2025 12:00 AM Outpatient Encounter EVENT (HISTORICAL) IHE Encounter Template Text not used by [place] Plan of Treatment: Future Appointments (+ 6 months) and Future Tests (+/- 45 days) The Plan of Treatment section includes future care activities for the patient from all [place] [facility] This section includes future appointments and [...] 23, 2025 02:30 PM AMBULATORY - PSYCHIATRY [facility] April 08, 2025 03:00 PM AMBULATORY - PSYCHIATRY [facility] Jun 29, 2025 02:30 PM AM[facility]UL[facility] Active, Pending, and Scheduled Orders [...] Order BASIC METABOLIC PANEL (non-fasting) BLOOD (SST[facility]SERUM) [facility] Feb 12, 2025 12:00 AM Laboratory - Chemistry Order LIPID PANEL FASTING BLOOD (SST-SERUM) [facility] Feb 12, 2025 12:00 AM Laboratory - Chemistry Order HEMOGLOBIN A1C PANEL BLOOD (LAV-BLOOD) [facility] Feb 12, 2025 12:00 AM Laboratory - Chemistry Order MICROALBUMIN CREATININE RATIO PANEL URINE (RANDOM) [facility] Social History: Smoking Status (Most [...] 09, 2023 01:00 PM [place]-TO[place]AC[place] [facility]ED [facility] Tobacco Use History This section includes a history of the smoking, or tobacco-related health factors, that were collected on or before the date of the Encounter. The data comes from the [place] facility where the Encounter took place. Date/Time Smoking Status/Tobacco Use Comment Chung acabby Jan 04, 2023 03:00 PM [place]-TOBACCO NEVER USED [place] [facility] [place] [facility] Feb 20, 2021 11:30 AM [facility] [place] [facility] Feb 18, 2020 09:39 AM [facility]-TOBACCO NEVER USED [facility] Dec 02, 2018 03:30 PM VA-TOBACCO [facility]ER [facility] Dec 02, 2018 03:30 PM VA-TOBACCO QUIT 15 YRS OR MORE [facility] Feb 28, 2018 02:37 PM QUIT TOBACCO USE > 7 YEARS AGO [facility] Nov 23, 2016 10:49 AM LIFETIME NON-TOBACCO USER [facility] April 10, 2005 09:23 AM LIFETIME NON-SMOKER [facility] April 10, 2005 09:23 AM LIFETIME NON-TOBACCO USER [facility] Advance Directives: All historical and current [...] Sep 08, 2009 ADVANCE DIRECTIVE CHOLO CONRAD [facility] Encounter Notes: All associated encounter notes This section contains the clinical notes associated to the Encounter. Date/Time Encounter Note(s) Provider Source Jan 16, 2025 12:00 AM RADIOLOGY NONVA NO TE: [facility] TITLE: NON-VA RADIOLOGY STANDARD TITLE: RADIOLOGY NONVA NOTE DATE OF NOTE: JAN 16, 2025 ENTRY DATE: JAN 19, 2025@12:19:05 AUTHOR: ISSAC RANDOLPH EXP COSIGNER: URGENCY: STATUS: COMPLETED VistA Imaging - Scanned Document SCANNED DOCUMENT SIGNATURE NOT REQUIRED Electronically Filed: 01/19/2025 by: ISSAC MILLER [facility]
== END 2025-01-25 13:21 | disposition home or self-care (01) ==
LOC: HO.MRI 13:20
PROVIDERS: PCP Nurse Practitioner Family; Visit Provider Surgery
DX: Z12.39 Encounter for other screening for malignant neoplasm of breast (principal); Z85.3 Personal history of malignant neoplasm of breast
CPT/HCPCS: 77049; A9585

== ENCOUNTER → 2025-01-25 13:38 | Outpatient (BNV) | payer OTHER, SELFPAY | PROVIDERS: PCP Nurse Practitioner Family; Visit Provider Internal Medicine | DX: D05.11 Intraductal carcinoma in situ of right breast (principal) | CPT/HCPCS: 77049 ==

== ENCOUNTER 2025-02-03 07:32 | Day surgery (SDC) | payer OTHER, SELFPAY ==
[2025-02-03] VITALS (21 sets, daily range): BP systolic 114–135; BP diastolic 59–74; PULSE 65–82; RESP 14–19; TEMP 36.7–37.1; O2SAT 97–100; BMI 30.2
--- NOTE | ~2025-02-03 | IR_ITS ---
PROCEDURE: IR INSERTION OF TUNNEL CATHETER CLINICAL INFORMATION: Breast cancer for chemotherapy. COMPARISON: None available. TECHNIQUE: Following explaining fluoroscopy and ultrasound-guided placement of a left port for chemotherapy procedure, benefits in risk, a written consent was obtained. Patient was placed supine on IR table and preliminary ultrasound imaging through the left neck was obtained. An optimal site was selected for the jugular puncture unremarkable in the skin. The marked site as well as the left upper chest was cleaned and draped in usual sterile manner. 1% lidocaine was injected was inserted at marked site. A small long needle was inserted under sterile ultrasound guidance and left jugular vein was punctured just above the clavicle. After obtaining venous return a thin guidewire was advanced over the needle and needle removed. The guidewire was attached to the drape with hemostats. Approximately 1 gauze length lateral and inferiorly a marker was placed. There is infiltrated with 1% lidocaine. Blunt dissection was performed and a small pocket for placement of port hardware with catheter was created. The port was anchored to the subcutaneous soft tissues with 3-0 nylon nonabsorbable sutures. 1% lidocaine was then inserted from the left anterior chest wall incision to the left neck incision. The catheter attached to a blunt tunneler was advanced from the left anterior chest wall incision subcutaneously to the left neck incision and was to pulled through the incision. A 5 Samoan dilator was advanced over the small wire and a small wire was removed. Through the 5 Samoan dilator a 0.35 J-wire was advanced and the dilator removed. A 6 Samoan dilator with sheath was advanced over the guidewire and the guidewire and the dilator removed. A 6.6 Samoan port catheter was sized appropriately and then inserted through the peel-away sheath. The catheter was held in position via the peel-away sheath was removed. Position of the catheter was evaluated on fluoroscopy and the tip lies in the mid SVC. The incision site along the left neck and left anterior chest wall was sutured with 2 0 absorbable sutures. Steri-Strips were placed along the left anterior chest wall incision. The port was flushed with heparinized saline postprocedure. Patient tolerated procedure extremely well. Conscious sedation was administered during the exam and patient monitored by a nurse and IR. 2 mg of Versed and 50 mcg of fentanyl was utilized during exam. All elements of maximal sterile barrier technique followed including use of cap, mask, sterile gown, sterile gloves, a sterile full body drape and hand hygiene. Also followed skin preparation with 2% chlorhexidine for cutaneous antisepsis, and sterile ultrasound preparation with sterile gel and probe cover when applicable. FINDINGS: Under ultrasound the left internal jugular vein is widely patent. A single ultrasound image was obtained for documentation. A 6.6 Samoan 37 cm long left jugular port was inserted under ultrasound and x-ray visualization. The port was left slightly higher in the left anterior chest wall. This position was due to patient's small and short neck. IR/IR cvc insert tunnel w prt/homoeopath IMPRESSION: Successful ultrasound and fluoroscopy-guided placement of a left 6.6 Samoan, 37 cm long port catheter. Fluoroscopy time: 40 minutes. Dose: 14.3 Gy. Electronically signed by: Jama Purcell MD 02/03/2025 01:50 PM EDT
--- NOTE | ~2025-02-03 | IR_ITS ---
Ultrasound guidance for placement dorsal disc dictated with fluoroscopy-guided port placement accession number Electronically signed by: Jama Purcell MD 02/04/2025 08:19 AM EDT RP
[2025-02-03 08:41] LABS: Glucose, Whole Blood 246 mg/dL (60-115)
[2025-02-03 08:51] LABS: INTERNATIONAL NORM RATIO 0.9 (0.9-1.1); Prothrombin Time 10.6 SEC (10.9-12.4)
[2025-02-03] MEDS: ceFAZolin Sodium/Dextrose,Iso 2 GM/50 ML PIGGYBACK IV (09:30)
[2025-02-03] MEDS: fentaNYL citrate/PF 100 MCG/2 ML VIAL 25 MCG IVPUSH ×2 (10:14→10:25)
[2025-02-03] MEDS: Midazolam HCl 2 MG/2 ML VIAL 1 MG IVPUSH ×2 (10:14→10:25)
== END 2025-02-03 13:08 | disposition home or self-care (01) ==
PROVIDERS: Radiology Diagnostic Radiology; PCP Nurse Practitioner Family; Visit Provider Internal Medicine Medical Oncology
DX: Z45.2 Encounter for adjustment and management of vascular access device (principal); C50.911 Malignant neoplasm of unspecified site of right female breast; Z17.1 Estrogen receptor negative status [ER-]; Z17.22 Progesterone receptor negative status; Z17.31 Human epidermal growth factor receptor 2 positive status; Z86.011 Personal history of benign neoplasm of the brain; Z79.84 Long term (current) use of oral hypoglycemic drugs; Z79.899 Other long term (current) drug therapy; Z90.710 Acquired absence of both cervix and uterus; Z98.890 Other specified postprocedural states; Z56.0 Unemployment, unspecified; Z91.040 Latex allergy status; Z88.5 Allergy status to narcotic agent; Z88.8 Allergy status to other drugs, medicaments and biological substances; F17.210 Nicotine dependence, cigarettes, uncomplicated
CPT/HCPCS: 36415; 36561; 76937; 82947; 85610; 99152; 99153; C1769; C1788; J0690; J1642; J1644; J2003; J2250; J3010

== ENCOUNTER → 2025-02-03 11:16 | Outpatient (BNV) | payer OTHER, SELFPAY | PROVIDERS: PCP Nurse Practitioner Family; Visit Provider Radiology Diagnostic Radiology | DX: Z45.2 Encounter for adjustment and management of vascular access device (principal) | CPT/HCPCS: 36561; 76937; 77001 ==

== ENCOUNTER 2025-02-05 12:13 | Outpatient (REF) | payer OTHER, SELFPAY ==
--- NOTE | ~2025-02-05 | US_ITS ---
EXAMINATION: US DIAGNOSTIC ULTRASOUND BREAST, BILATERAL CLINICAL INFORMATION: Recently diagnosed right breast cancer MRI recommended right axillary ultrasound and left breast ultrasound for further evaluation.. COMPARISON: Comparison is made with relevant prior imaging. TECHNIQUE: Ultrasound of the breast is performed with real-time mckeon scale imaging and color Doppler. FINDINGS: Targeted color ultrasound scanning in the right axilla demonstrates normal axillary lymph nodes. There is no sonographic abnormality. Targeted color Doppler ultrasound scanning in the left lower outer quadrant from 3 -5:00 demonstrates a minimally complicated cyst at 5:00 to 3 cm from nipple with a thin avascular intervening septation measuring 6 x 5 x 6 mm. There is a solid mass versus complicated cyst at 3:00 5 to 6 cm from nipple measuring 4 x 3 x 3 mm without internal vascular flow. No other sonographic abnormality is seen scanning from 3 5:00. Results were communicated to Dr. Vasquez US/US breast BI limited mamm only IMPRESSION: Right: Normal axillary lymph nodes. Negative. Left: 1. Solid mass versus complicated cyst at 3:00 5 to 6 cm from the nipple. Recommend 6 month follow-up ultrasound for further evaluation of stability as well as follow-up of cyst at 5:00. 2. No definite ultrasound correlate for the enhancing 5 mm mass on MRI. Recommend MRI guided core needle biopsy left breast lower outer quadrant 5 mm mass at this time. ASSESSMENT: BI-RADS 3: Probably Benign recommend 6 month follow-up ultrasound of solid mass versus complicated cyst at 3:00. As per prior MRI report recommend left breast MRI guided core needle biopsy. RECOMMENDATION: MRI guided left breast biopsy. 6 month follow-up left ultrasound. This patient's information was entered into a reminder system with a target due date for their next mammogram. Electronically signed by: Paula Wright DO 02/10/2025 11:57 AM EDT
== END 2025-02-05 12:14 | disposition home or self-care (01) ==
LOC: HO.US 12:13
PROVIDERS: PCP Nurse Practitioner Family; Visit Provider Internal Medicine Medical Oncology
DX: N63.10 Unspecified lump in the right breast, unspecified quadrant (principal); N63.20 Unspecified lump in the left breast, unspecified quadrant
CPT/HCPCS: 76642

== ENCOUNTER → 2025-02-05 12:20 | Outpatient (BNV) | payer OTHER, SELFPAY | PROVIDERS: PCP Nurse Practitioner Family; Visit Provider Internal Medicine | DX: C50.911 Malignant neoplasm of unspecified site of right female breast (principal) | CPT/HCPCS: 76642 ==

== ENCOUNTER → 2025-02-24 09:34 | Outpatient (BNV) | payer OTHER, SELFPAY | PROVIDERS: Visit Provider Internal Medicine | DX: N63.23 Unspecified lump in the left breast, lower outer quadrant (principal); C50.911 Malignant neoplasm of unspecified site of right female breast | CPT/HCPCS: 19085; 77065 ==

== ENCOUNTER 2025-02-24 09:36 | Outpatient (REF) | payer OTHER, SELFPAY ==
--- NOTE | ~2025-02-24 | MM_ITS ---
EXAMINATION: MR GUIDED VACUUM-ASSISTED CORE BIOPSY BREAST, LEFT MM DIGITAL MAMMOGRAPHY POST BIOPSY, LEFT CLINICAL INFORMATION: Recently diagnosed right breast cancer enhancing mass in the left breast recommended for MRI guided core needle biopsy.. COMPARISON: Priors on PACS. TECHNIQUE/PROCEDURE: Informed consent was obtained from the patient after discussion of the benefits, risks, and alternatives to biopsy today. Patient appeared to understand. Gave opportunity for questions. Patient signed consent form. Biopsy is performed under MRI guidance using breast surface coil. Imaging is performed without and with use of Gadavist gadolinium contrast. Mantara introducer localization system is used with grid. LESION: Lower outer left breast.. LOCAL ANESTHESIA: 5 mL 1% lidocaine; 5 mL 1% lidocaine with epinephrine. NEEDLE: Mantara 9-gauge vacuum assisted core biopsy device. APPROACH: Lateral. CORES: 12. CLIP: Trimarchi barbell shaped. POSTPROCEDURE UNILATERAL DIGITAL MAMMOGRAM: Mammography is performed using digital mammography in CC and MLO views. The breasts are heterogeneously dense, which may obscure small masses (ACR BI-RADS breast composition Category c). The clip marker is in position. No gross hematoma. The patient tolerated the procedure well. No immediate complications. Home instructions reviewed with the patient. Final pathology results are pending. MM/MM tomosynthesis diagnostic LT IMPRESSION: 1. Status post MRI guided vacuum-assisted core biopsy left breast with clip placement. 2. Final pathology results pending. An addendum report will be issued. Electronically signed by: Paula Wright DO 02/25/2025 09:02 AM EDT
[2025-02-24] MEDS: gadobutroL 7.5 ML VIAL IVPUSH (12:23)
[2025-02-24] MEDS: Lidocaine HCl 1%/Epi 1:100,000 10 ML VIAL SUBCUT (12:29)
[2025-02-24] MEDS: Lidocaine HCl 1 % MPF 5 ML VIAL SUBCUT ×2 (12:31)
== END 2025-02-24 09:37 | disposition home or self-care (01) ==
LOC: HO.MRI 09:36
PROVIDERS: Visit Provider Internal Medicine Medical Oncology
DX: N63.23 Unspecified lump in the left breast, lower outer quadrant (principal)
CPT/HCPCS: 19085; 77061; 77065; 88305; A4648; A9585; J2003; J2004

== ENCOUNTER 2025-03-11 | Outpatient (REF) | payer OTHER, SELFPAY ==
--- NOTE | ~2025-03-11 | FL_ITS ---
EXAMINATION: XR FLUOROSCOPY CLINICAL INFORMATION: CHECK PORT ; port site infection, rule out port dysfunction. COMPARISON: 02/03/2025. TECHNIQUE: Using fluoroscopic guidance, the port was localized. Skin and overlying soft tissues were cleansed aseptically, prepped and draped in sterile fashion. Skin and subcutaneous tissues were anesthetized with 1% lidocaine. An 18-gauge needle was used to attempt to aspirate any fluid surrounding the cord. No return of fluid was noted. (I.e. no definite abscess or fluid collection surrounding the port). A standard port access needle was then used to access the Port-A-Cath. Once access was established, the port was noted to both flush and draw normally. It was then heparin locked, and the port site was dressed appropriately with Tegaderm and bandaging. FINDINGS: Left chest port is functional and accessed appropriately. No definite abscess or abnormal fluid could be aspirated from the port pocket. FLUOROSCOPY TIME: 13 seconds DOSE AREA PRODUCT: 183.8 uGy-m2 (microgray-meter squared) FL/FL fluoroscopy <1hr IMPRESSION: 1. No definite fluid could be aspirated from the left chest port pocket. 2. Port was then accessed, noted to function properly, and was dressed and bandaged for Oncology use. Electronically signed by: Clemente Ashton MD 03/12/2025 08:17 AM EDT
[2025-03-11] MEDS: Lidocaine HCl 1 % MPF 30 ML VIAL INTRAARTIC (11:03)
== END 2025-03-11 00:01 | disposition home or self-care (01) ==
LOC: HO.XRAY
PROVIDERS: Visit Provider Nurse Practitioner Family
DX: Z45.2 Encounter for adjustment and management of vascular access device (principal); C50.911 Malignant neoplasm of unspecified site of right female breast
CPT/HCPCS: 76000; J2003

== ENCOUNTER → 2025-03-11 09:59 | Outpatient (BNV) | payer OTHER, SELFPAY | PROVIDERS: Visit Provider Radiology Diagnostic Radiology | DX: C50.911 Malignant neoplasm of unspecified site of right female breast (principal); T80.212A Local infection due to central venous catheter, initial encounter | CPT/HCPCS: 76000 ==

== ENCOUNTER 2025-03-16 12:51 | Emergency (ER) | payer OTHER, SELFPAY ==
--- NOTE | ~2025-03-16 | CT_ITS ---
CLINICAL HISTORY: abd pain CT abdomen and pelvis with contrast Comparison: None Findings: No consolidation or effusion. Cardiomegaly. Comparison: None Findings: No consolidation or effusion. Heart size normal. No acute fracture. The gallbladder and solid organs are within normal limits. No renal stones. No bowel obstruction, pneumoperitoneum, or pneumatosis. Pelvic contents unremarkable. Normal appendix. The bones are intact. IMPRESSION: No acute findings. This document has been electronically signed by: Austin De Anda MD on 03/16/2025 17:55:52
--- NOTE | ~2025-03-16 | XR_ITS ---
EXAMINATION: XR CHEST CLINICAL INFORMATION: pain COMPARISON: None available. TECHNIQUE: 2 views of the chest were obtained. FINDINGS: Left chest port in place with tip extending into the cavoatrial junction, well-positioned. The cardiac, hilar, and mediastinal contours are normal. The lungs are clear bilaterally. There is no pneumothorax or pleural effusion. There is no focal osseous or soft tissue abnormality. XR/XR chest 2V IMPRESSION: No active pulmonary disease. Electronically signed by: Clemente Ashton MD 03/16/2025 01:42 PM EDT RP
--- NOTE | ~2025-03-16 | CT_ITS ---
CLINICAL HISTORY: hx of cancer, tachycardic, chest pain CT angiography chest with contrast. 3D Postprocessing. Comparison: CT - CT ANGIO CHEST PE PROTOCOL - 03/16/25 16:47 EDT Findings: The heart size is normal. RV/LV ratio is normal. Calcification of the coronary vasculature. Unremarkable thoracic aorta and great vessels. No aneurysm. No acute pulmonary embolus. The visualized thyroid and mediastinum are unremarkable. The lungs are clear. The visualized upper abdomen is unremarkable. No acute fractures. IMPRESSION: 1. No pulmonary emboli. 2. Coronary artery disease. 3. No acute process. This document has been electronically signed by: Austin De Anda MD on 03/16/2025 17:53:40
--- NOTE | 2025-03-16 12:56 | ED_ITS ---
HPI - General Adult General Chief complaint: General Medical Stated complaint: body pain Time Seen by Provider: 03/16/25 14:45 Source: patient and family (patient's ) Mode of arrival: ambulatory Limitations: no limitations History of Present Illness ED Provider: Sharmin Linder PA-C HPI narrative: Patient is a 64 year old assigned female at with a history of invasive ductal carcinoma, brain cancer, and current chemotherapy patient presenting to the emergency department today with generalized body aches, chest pain, abdominal pain, diarrhea, and a sore throat. Patient states that over the last few days she has felt generally unwell with body aches, chest pain, abdominal pain, diarrhea, and a sore throat. Patient denies any dizziness, lightheadedness, nausea, vomiting, fever, chills, blurry vision, double vision, loss of vision, difficulty breathing, shortness of breath, back pain, night sweats, pain with urination, increased urinary frequency, increased urinary urgency, blood in her urine or stool, syncope or a near syncopal episode, recent trauma or falls, bowel incontinence, bladder incontinence, or any other complaints at this time. Relieving factors: none Exacerbating factors: none Associated symptoms: chest pain Related Data Home Medications ?Medication ?Instructions ?Recorded ?Confirmed amlodipine 2.5 mg tablet 2.5 mg PO DAILY 12/31/24 02/02/25 atorvastatin 40 mg tablet 40 mg PO DAILY 12/31/24 02/02/25 cetirizine 10 mg tablet (Zyrtec) 10 mg PO DAILY PRN yes 12/31/24 02/02/25 cholecalciferol (vitamin D3) 25 25 mcg PO DAILY 12/31/24 02/02/25 mcg (1,000 unit) capsule duloxetine 30 mg capsule,delayed 30 mg PO BID 12/31/24 02/02/25 release empagliflozin 10 mg tablet 10 mg PO DAILY 12/31/24 02/02/25 hydrochlorothiazide 25 mg tablet 25 mg PO DAILY 12/31/24 02/02/25 Vitamin B-12 02/03/25 02/03/25 Vitamin C 02/03/25 losartan 02/03/25 02/03/25 melatonin 10 mg tablet 10 mg PO BEDTIME PRN Insomnia 02/03/25 02/03/25 Previous Rx's ?Medication ?Instructions ?Recorded potassium chloride 20 mEq 20 meq PO DAILY #30 tabs 01/08/25 tablet,extended release cephalexin 500 mg tablet 500 mg PO QID #28 tabs 03/11/25 dexamethasone 4 mg tablet 8 mg (2 x 4 mg) PO BID #30 tabs 03/11/25 methocarbamol 750 mg tablet 750 mg PO Q8H PRN pain #15 tabs 03/16/25 Allergies Allergy/AdvReac Type Severity Reaction Status Date / Time diphenhydramine Allergy Mild pass out Verified 03/16/25 13:09 [From Benadryl] hydromorphone [From Dilaudid] Allergy Mild Unknown Verified 03/16/25 13:09 latex Allergy Mild Itching Verified 03/16/25 13:09 metformin Allergy Mild Unknown Verified 03/16/25 13:09 morphine Allergy Mild Anaphylaxis Verified 03/16/25 13:09 omeprazole Allergy Mild Unknown Verified 03/16/25 13:09 Review of Systems 2 Constitutional: Constitutional: Reports no additional constitutional complaints, Reports body ache(s), Denies chills, Denies fever(s) and Denies night sweats Eyes: Eyes: Reports no additional eye complaints, Denies blurry vision, Denies change in vision, Denies diplopia, Denies eye discharge, Denies loss of vision and Denies eye pain ENT: Denies dizziness Cardiovascular: Cardiovascular: Reports no additional cardiovascular complaints, Reports chest pain, Denies lightheadedness, Denies Loss of Consciousness and Denies dyspnea Respiratory: Respiratory: Reports no additional respiratory complaints and Denies dyspnea Gastrointestinal: Gastrointestinal: Reports no additional gastrointestinal complaints, Reports abdominal pain, Denies melena, Denies hematochezia, Reports change in bowel habits, Reports change in stool character and Reports diarrhea Genitourinary: Genitourinary: Denies hematuria, Denies urinary frequency, Denies dysuria, Denies urinary incontinence, Denies urinary hesitancy and Denies urinary urgency Musculoskeletal: Musculoskeletal: Reports no additional musculoskeletal complaints, Denies numbness and Denies tingling Neurologic: Denies dizziness, Denies loss of vision, Denies numbness and Denies tingling Psychiatric: Psychiatric: Reports no additional psychiatric complaints Endocrine: Endocrine: Reports no additional endocrine complaints Hematologic/Lymphatic: Hematologic/Lymphatic: Reports no additional hematologic/lymphatic complaints Allergic/Immunologic: Allergic/Immunologic: Reports no additional allergic/immunologic complaints PMFSH Past Medical History Attestation statement: The following information was validated with the patient. (patient's validated all information) Source: old records reviewed, obtained from family (patient's provided additional history and confirmed the history provided by the patient. ) and nursing notes reviewed Surgical History History of excision of pilonidal cyst Hx of hysterectomy (2006) Hx of cataract surgery Social History Social History Household Members: Spouse Housing: House Do you presently have visiting nurse or other home services: No Alcohol intake: current Alcohol intake frequency: holidays/special occasions only Tobacco use type: Cigarette Smoked in Last 30 Days: No Second Hand Smoke Exposure: No Use of substances other than those prescribed or required for medical reasons: No Advance Directives: No Advance Directives Information Provided: Yes Do you have a plan to hurt others: No Plan service: No Current occupational status: unemployed and disabled Physical Exam ED Vital Signs: Vital Signs - 24 hr 03/16/25 13:04 03/16/25 13:30 03/16/25 13:54 Temperature 98.8 F Pulse Rate 139 H 112 H Respiratory Rate 20 16 Blood Pressure 105/70 121/76 Pulse Oximetry 98 97 Oxygen Delivery Method Room Air Room Air 03/16/25 16:13 03/16/25 18:58 Temperature Pulse Rate 110 H 99 Respiratory Rate 18 12 Blood Pressure 109/69 137/78 Pulse Oximetry 97 100 Oxygen Delivery Method Room Air Room Air BMI result Body Mass Index 29.4 Const General: cooperative, no acute distress, alert and awake Nutritional Appearance: well nourished Orientation/consciousness: patient oriented x3 Limitations: no limitations [facility] Head: Yes normal to inspection and Yes atraumatic Ears: hearing grossly normal bilaterally and external ears normal General nose exam: Normal external nose present, no nasal discharge noted and no epistaxis Face and sinus: Yes normal facial exam, No abrasion and No laceration Mouth: Normal oral and palatal mucosa present, no drooling and no muffled voice Eyes General: appearance normal, both eyes and all related structures Periorbital: periorbital findings normal Eyelids: Yes eyelids normal Conjunctivae: conjunctivae normal Pupils: Equal, round and reactive pupils present EOM: EOMs intact bilaterally Neck Neck: Yes normal visual inspection, Yes full ROM and Yes no lymphadenopathy Chest Chest palpation & inspection: normal inspection of the chest Resp Effort & Inspection: normal respiratory effort and able to speak in complete sentences Cardio Rate: tachycardic Rhythm: regular rhythm GI Inspection: Yes normal to inspection Neuro General: patient oriented x3, moves all extremities and CN's II-XI intact bilaterally Cranial nerves: Yes Equal, round and reactive pupils present Cognition (Neuro): normal cognition Extrem General: Yes normal to inspection, Yes full ROM and Yes capillary refill normal Psych Appearance: grossly normal Mental Status: mental status grossly normal Affect: normal affect Attitude: cooperative Thought process: Normal thought process present Thought content: Normal thought content present Insight: Good insight present (Psych) Course Course Course Narrative: RME, this is a rapid medical exam performed by Ambrose Mclaughlin please refer to primary provider for complete H&P- 64 year old female presents for evaluation of weakness, sore throat, abdominal pain. Symptoms started 2 days. ago. She reports that she is on chemotherapy for breast cancer followed by Dr Vasquez. She is tachycardic in triage. Plan for EKG, labs, UA, chest x-ray, and swabs Reevaluation(s) Reevaluation #1: I Analia Whitley PA-C have accepted care of the patient and signed out pending delta Troponin and final disposition the patient remains mildly tachycardic, delta trop in process, her pain has happened treated. We will give a muscle relaxant, she can not have opiate Reevaluation #2: Delta trop flat, the patient responded to the muscle relaxant, I will be sending her with additional. She did skip her blood pressure medications which could be contributory to her tachycardic Time: 20:51 Medications Administered Discontinued Medications Generic Name Dose Route Start Last Admin Trade Name Freq PRN Reason Stop Dose Admin Diazepam 2.5 mg 03/16/25 18:52 03/16/25 19:01 Diazepam 10 Mg/2 Ml Cartridge IVPUSH 03/16/25 18:53 2.5 mg STAT STA Administration Sodium Chloride 1,000 mls @ 999 mls/hr 03/16/25 18:15 03/16/25 20:26 Ns IV 03/16/25 19:15 Infused .Q1H1M GENEVA Infusion Iohexol 100 ml 03/16/25 16:51 03/16/25 16:51 Iohexol 350 Mg/Ml 100 Ml Infus..Btl IV 03/16/25 16:52 85 ml ONCE ONE Administration Medical Decision Making Medical Decision Making [facility] Narrative: Patient is a 64 year old assigned female at with a history of invasive ductal carcinoma, brain cancer, and current chemotherapy patient presenting to the emergency department today with generalized body aches, chest pain, abdominal pain, diarrhea, and a sore throat. Patient's physical exam was as noted in the physical exam portion of this note. Patient's blood work was largely unremarkable however, she had a mildly elevated blood sugar and lipase. Patient's urine showed no acute process. Patient's EKG showed sinus tachycardia. Patient's CT chest (PE) and abdomen/pelvis showed no acute process. I explained my physical exam findings as well as all test results to the patient. I answered all questions asked by the patient. Patient signed out to Kassandra Whitley PA-C pending repeating vital signs, troponin result, completion of 1 liter of NS, and re-evaluation. Differential Diagnosis Differential Diagnoses: The differential diagnosis associated with the presentation includes Viral illness PE Admission/Observation Consideration of admission/observation: Escalation of care including admission/observation considered Patient's disposition will be determined after liter of fluids and re- evaluation. Lab Data [facility] Lab Attestation statement: I reviewed the patient's lab results. My interpretation of these results are in the MDM Rationale portion of this note. 03/16/25 13:21 03/16/25 13:21 Labs: Lab Results 03/16/25 03/16/25 03/16/25 Range/Units 13:21 13:37 14:00 WBC 9.8 (4.8-10.8) X10*3/uL RBC 5.44 (4.20-5.50) X10*6/uL Hgb 16.0 (12.0-16.0) g/dl Hct 49.5 H (37.0-47.0) % MCV 91.0 (80.0-98.0) fL MCH 29.4 (27.0-33.0) pg MCHC 32.3 (31.0-35.0) g/dl RDW 12.4 (11.0-16.0) % Plt Count 136 L D (160-400) X10*3/uL MPV 10.8 (9.4-12.3) fL Immature Gran % (Auto) Cancelled Neut % (Auto) Cancelled Lymph % (Auto) Cancelled Lyon % (Auto) Cancelled Eos % (Auto) Cancelled Baso % (Auto) Cancelled Lymph # (Auto) Cancelled Lyon # (Auto) Cancelled Eos # (Auto) Cancelled Baso # (Auto) Cancelled Abs Immat Gran (auto) Cancelled Absolute Neuts (auto) Cancelled Absolute Nucleated RBC 0.000 (0.0-0.012) X10*3/uL Nucleated RBC % (auto) 0.0 (0.0-0.2) /100WBC Neutrophils % (Manual) 58 (45-73) % Band Neutrophils % 9 H (3-5) % Lymphocytes % (Manual) 24 (20-40) % Atypical Lymphs % (Man) 1 (0-6) % Monocytes % (Manual) 6 (2-11) % Metamyelocytes % 2 % Abs Neuts (Manual) 6.6 (2.0-8.3) X10*3/uL Lymphocytes # (Manual) 2.4 (1.2-4.9) X10*3/uL Atyp Lymphs # (Manual) 0.1 x10*3/uL Monocytes # (Manual) 0.6 (0.1-1.2) X10*3/uL Metamyelocytes # 0.2 X10*3/uL Platelet Estimate SLIGHTLY DECREASED (NORMAL) Plt Morphology Comment NORMAL RBC Morphology NORMAL Sodium 134 L (135-145) mmol/L Potassium 4.5 D (3.3-5.1) mmol/L Chloride 101 (96-108) mmol/L Carbon Dioxide 25 (22-29) mmol/L Anion Gap 13 (12-20) BUN 19 H (9-16) mg/dL Creatinine 0.72 (0.5-1.4) mg/dL Estim Creat Clear Calc 71.7 Estimated GFR > 60 POC Glucose 309 H (60-115) mg/dL Random Glucose 380 H* (60-115) mg/dL Calcium 9.0 D (8.4-10.2) mg/dL Total Bilirubin 0.7 (0.0-1.0) mg/dL AST 18 (5-31) U/L ALT 30 (0-31) U/L Alkaline Phosphatase 100 (39-117) U/L Troponin I High Sens 13.7 (<3.5-17.0) ng/L Total Protein 6.9 (6.5-8.0) g/dL Albumin 4.0 (3.5-5.0) g/dL Lipase 112 H (8-78) U/L Urine Color Yellow Urine Appearance Clear Urine pH 6.5 (5.0-9.0) Ur Specific Wayne >= 1.030 H (1.005-1.025) Urine Protein Negative (Neg-Trace) mg/dL Urine Glucose (UA) >=1000 H (Negative) mg/dL Urine Ketones Negative (Negative) mg/dL Urine Blood Small (1+) H (Negative) Urine Nitrite Negative (Negative) Ur Leukocyte Esterase Negative (Negative) Urine RBC 6-10 H (0-2) /HPF Urine WBC 0-5 (0-5) /HPF Ur Squamous Epith Cells 0-2 (0-2) /HPF Urine Bacteria None Seen (None Seen) Hyaline Casts 0-2 (0-2) /LPF Influenza Type A (PCR) NEGATIVE (Negative) Influenza Type B (PCR) NEGATIVE (Negative) RSV RNA Qual (PCR) NEGATIVE (Negative) SARS-CoV-2 RNA (RT-PCR) NEGATIVE (Negative) S. pyogenes GrpA EVELINA Negative (Negative) 03/16/25 Range/Units 19:08 WBC (4.8-10.8) X10*3/uL RBC (4.20-5.50) X10*6/uL Hgb (12.0-16.0) g/dl Hct (37.0-47.0) % MCV (80.0-98.0) fL MCH (27.0-33.0) pg MCHC (31.0-35.0) g/dl RDW (11.0-16.0) % Plt Count (160-400) X10*3/uL MPV (9.4-12.3) fL Immature Gran % (Auto) Neut % (Auto) Lymph % (Auto) Lyon % (Auto) Eos % (Auto) Baso % (Auto) Lymph # (Auto) Lyon # (Auto) Eos # (Auto) Baso # (Auto) Abs Immat Gran (auto) Absolute Neuts (auto) Absolute Nucleated RBC (0.0-0.012) X10*3/uL Nucleated RBC % (auto) (0.0-0.2) /100WBC Neutrophils % (Manual) (45-73) % Band Neutrophils % (3-5) % Lymphocytes % (Manual) (20-40) % Atypical Lymphs % (Man) (0-6) % Monocytes % (Manual) (2-11) % Metamyelocytes % % Abs Neuts (Manual) (2.0-8.3) X10*3/uL Lymphocytes # (Manual) (1.2-4.9) X10*3/uL Atyp Lymphs # (Manual) x10*3/uL Monocytes # (Manual) (0.1-1.2) X10*3/uL Metamyelocytes # X10*3/uL Platelet Estimate (NORMAL) Plt Morphology Comment RBC Morphology Sodium (135-145) mmol/L Potassium (3.3-5.1) mmol/L Chloride (96-108) mmol/L Carbon Dioxide (22-29) mmol/L Anion Gap (12-20) BUN (9-16) mg/dL Creatinine (0.5-1.4) mg/dL Estim Creat Clear Calc Estimated GFR POC Glucose (60-115) mg/dL Random Glucose (60-115) mg/dL Calcium (8.4-10.2) mg/dL Total Bilirubin (0.0-1.0) mg/dL AST (5-31) U/L ALT (0-31) U/L Alkaline Phosphatase (39-117) U/L Troponin I High Sens 16.8 (<3.5-17.0) ng/L Total Protein (6.5-8.0) g/dL Albumin (3.5-5.0) g/dL Lipase (8-78) U/L Urine Color Urine Appearance Urine pH (5.0-9.0) Ur Specific Wayne (1.005-1.025) Urine Protein (Neg-Trace) mg/dL Urine Glucose (UA) (Negative) mg/dL Urine Ketones (Negative) mg/dL Urine Blood (Negative) Urine Nitrite (Negative) Ur Leukocyte Esterase (Negative) Urine RBC (0-2) /HPF Urine WBC (0-5) /HPF Ur Squamous Epith Cells (0-2) /HPF Urine Bacteria (None Seen) Hyaline Casts (0-2) /LPF Influenza Type A (PCR) (Negative) Influenza Type B (PCR) (Negative) RSV RNA Qual (PCR) (Negative) SARS-CoV-2 RNA (RT-PCR) (Negative) S. pyogenes GrpA EVELINA (Negative) Independent Interpretation I performed an independent interpretation of an: EKG, Plain X-Ray and CT Scan Interpretation: My interpretation is in agreement with the radiologist's impression of these imaging studies. L Report Number: [id number]: Total DLP = 699.00 mGy-cm CLINICAL HISTORY: abd pain CT abdomen and pelvis with contrast Comparison: None Findings: No consolidation or effusion. Cardiomegaly. Comparison: None Findings: No consolidation or effusion. Heart size normal. No acute fracture. The gallbladder and solid organs are within normal limits. No renal stones. No bowel obstruction, pneumoperitoneum, or pneumatosis. Pelvic contents unremarkable. Normal appendix. The bones are intact. IMPRESSION: No acute findings. This document has been electronically signed by: Austin De Anda MD on 03/16/2025 17:55:52 Dictated By: Austin De Anda MD Signed By: Electronically signed by Austin De Anda MD 03/16/25 1756 Report Number: [id number]: Total DLP = 0.00 mGy-cm CLINICAL HISTORY: hx of cancer, tachycardic, chest pain CT angiography chest with contrast. 3D Postprocessing. Comparison: CT - CT ANGIO CHEST PE PROTOCOL - 03/16/25 16:47 EDT Findings: The heart size is normal. RV/LV ratio is normal. Calcification of the coronary vasculature. Unremarkable thoracic aorta and great vessels. No aneurysm. No acute pulmonary embolus. The visualized thyroid and mediastinum are unremarkable. The lungs are clear. The visualized upper abdomen is unremarkable. No acute fractures. IMPRESSION: 1. No pulmonary emboli. 2. Coronary artery disease. 3. No acute process. This document has been electronically signed by: Austin De Anda MD on 03/16/2025 17:53:40 Dictated By: Austin De Anda MD Signed By: Electronically signed by Austin De Anda MD 03/16/25 1754 EXAMINATION: XR CHEST CLINICAL INFORMATION: pain COMPARISON: None available. TECHNIQUE: 2 views of the chest were obtained. FINDINGS: Left chest port in place with tip extending into the cavoatrial junction, well- positioned. The cardiac, hilar, and mediastinal contours are normal. The lungs are clear bilaterally. There is no pneumothorax or pleural effusion. There is no focal osseous or soft tissue abnormality. XR/XR chest 2V IMPRESSION: No active pulmonary disease. Electronically signed by: Clemente Ashton MD 03/16/2025 01:42 PM EDT RP Dictated By: Clemente Ashton MD Signed By: Electronically signed by Clemente Ashton MD 03/16/25 1342 I independently interpreted this EKG and am in agreement with the below findings: Vent. Rate: 126 BPM Atrial Rate: 126 BPM P-R Int: 158 ms QRS Dur: 78 ms QT Int: 296 ms P-R-T Axes: 46 20 28 degrees QTcB Int: 428 ms Sinus tachycardia Possible Left atrial enlargement Anterior infarct, age undetermined No previous ECGs available DD/ 1315 Radiology Impression Discussion of test interpretation with radiology: I have reviewed the radiologist's reading. Independent Historian Clinical information obtained from an independent historian. History obtained from or confirmed by: Spouse (patient's provided additional history and confirmed the history provided by the patient. ) Critical Care Time Critical Care Time Critical Care Time: Yes Total Critical Care Time: 38 Attestation: I spent 38 minutes of Critical Care Time with this patient. This does not include time spent on separately reported billable procedures. Discharge Plan Discharge Clinical Impression: Tachycardia, Muscle pain Patient Disposition: Home, Self-Care Instructions: Musculoskeletal Pain (ED), Tachycardia (ED) Additional Instructions: All of your screening labs were normal including [address] scan of your abdomen and pelvis was unremarkable, the CT of your chest was also unremarkable. We do not have a good explanation for your body pain or your elevated heart rate. You need to take your blood pressure medications as directed, this could be contributory to your tachycardia. In regard to your body pain, I am sending you with a muscle relaxant called methocarbamol. Use it as needed. To note this medication could cause drowsiness, do not drive or operate machinery while taking this medication. The antibiotics that you are taking, should be completed. Use a probiotic, this will help with the diarrhea and helped to replenish the good bacteria in your gut. You can purchase this anywhere. Follow up with your primary care this week, in follow up for your elevated heart rate. Prescriptions: New methocarbamol 750 mg tablet 750 mg PO Q8H PRN (Reason: pain) Qty: 15 0RF No Action melatonin 10 mg Tablet 10 mg PO BEDTIME PRN (Reason: Insomnia) Vitamin B-12 Vitamin C losartan potassium chloride 20 mEq Tablet Extended Release 20 meq PO DAILY Qty: 30 2RF cephalexin 500 mg Tablet 500 mg PO QID Qty: 28 0RF dexamethasone 4 mg Tablet 8 mg PO BID Qty: 30 1RF Rx Instructions: Take twice a day for 3 days starting the day before chemotherapy. amlodipine 2.5 mg tablet 2.5 mg PO DAILY atorvastatin 40 mg tablet 40 mg PO DAILY empagliflozin 10 mg tablet 10 mg PO DAILY hydrochlorothiazide 25 mg tablet 25 mg PO DAILY cholecalciferol (vitamin D3) 25 mcg (1,000 unit) capsule 25 mcg PO DAILY cetirizine [Zyrtec] 10 mg tablet 10 mg PO DAILY PRN (Reason: yes) duloxetine 30 mg capsule,delayed release(DR/EC) 30 mg PO BID Print Language: Bulgarian
--- NOTE | 2025-03-16 12:59 | ECG_ITS ---
Test Reason : WEAKNESS, TACHY Blood Pressure : */* mmHG Vent. Rate : 126 BPM Atrial Rate : 126 BPM P-R Int : 158 ms QRS Dur : 78 ms QT Int : 296 ms P-R-T Axes : 46 20 28 degrees QTcB Int : 428 ms Sinus tachycardia Possible Left atrial enlargement Anterior infarct , age undetermined Abnormal ECG No previous ECGs available Referred By: Bernard Mclaughlin Electronically Signed By: Huseyin Flores
[2025-03-16 13:04] VITALS: BP 105/70; PULSE 139; RESP 20; O2SAT 98; BMI 29.4
[2025-03-16 13:30] VITALS: TEMP 37.1
[2025-03-16 13:35] LABS: PLT CLUMP 1
[2025-03-16 13:37] LABS: Hematocrit 49.5 % (37.0-47.0); IDNOW Serial# 55D5AD1C; Mean Corpuscular HGB Conc 32.3 g/dl (31.0-35.0); Mean Corpuscular Hemoglobin 29.4 pg (27.0-33.0); Mean Platelet Volume 10.8 fL (9.4-12.3); Red Blood Count 5.44 X10*6/uL (4.20-5.50); Red Cell Distribution Width 12.4 % (11.0-16.0); Strep A Nucleic Acid Negative (Negative)
[2025-03-16 13:44] LABS: Platelet Count 136 X10*3/uL (160-400); WBC ABN SCTR FOR CBC 1; White Blood Count 9.8 X10*3/uL (4.8-10.8)
[2025-03-16 13:46] LABS: Appearance Urine Clear; Color Urine Yellow; Glucose Urine UA >=1000 mg/dL (Negative); Leukocyte Esterase Urine Negative (Negative); Nitrite Urine Negative (Negative); PH 6.5 (5.0-9.0); Specific Gravity - Urine >= 1.030 (1.005-1.025); UMIC TRIGGER UACC YES; Urine Blood Small (1+) (Negative); Urine Ketones Negative (Negative); Urine Protein Negative (Neg-Trace)
[2025-03-16 13:48] LABS: Bacteria Urine None Seen (None Seen); Hyaline Casts Urine 0-2 /LPF (0-2); Squamous Epithelial Cell Urine 0-2 /HPF (0-2); WBC Urine 0-5 /HPF (0-5)
[2025-03-16 13:54] VITALS: BP 121/76; PULSE 112; RESP 16; O2SAT 97
[2025-03-16 13:55] LABS: Alanine Aminotransferase 30 U/L (0-31); Alkaline Phosphatase 100 U/L (39-117); Anion Gap 13 (12-20); Aspartate Amino Transferase 18 U/L (5-31); Bilirubin Total 0.7 mg/dL (0.0-1.0); Blood Urea Nitrogen 19 mg/dL (9-16); Carbon Dioxide 25 mmol/L (22-29); Chloride 101 mmol/L (96-108); Creatinine Clr Calc Pharmacy 71.7; Estimated Glomerular Filt Rate > 60; Glucose Random 380 mg/dL (60-115); Lipase 112 U/L (8-78); Potassium 4.5 mmol/L (3.3-5.1); Sodium 134 mmol/L (135-145); Total Protein 6.9 g/dL (6.5-8.0)
[2025-03-16 14:04] LABS: Glucose, Whole Blood 309 mg/dL (60-115)
[2025-03-16 14:07] LABS: Influenza A PCR NEGATIVE (Negative); Influenza B PCR NEGATIVE (Negative); Resp Syncy Virus RNA Qual PCR NEGATIVE (Negative); SARS COV2 PCR INHOUSE NEGATIVE (Negative)
[2025-03-16 14:10] LABS: Atypical Lymph Absolute Manual 0.1 x10*3/uL; Atypical Lymphs Percent Manual 1 % (0-6); Band Neutrophils Percent 9 % (3-5); Lymphocytes Absolute Manual 2.4 X10*3/uL (1.2-4.9); Lymphocytes Percent Manual 24 % (20-40); Metamyelocytes Absolute 0.2 X10*3/uL; Metamyelocytes Percent 2 %; Monocytes Absolute Manual 0.6 X10*3/uL (0.1-1.2); Monocytes Percent Manual 6 % (2-11); Neutrophils Absolute Manual 6.6 X10*3/uL (2.0-8.3); Neutrophils Percent Manual 58 % (45-73)
[2025-03-16 14:15] LABS: Platelet Morphology Comment NORMAL; RBC Morphology NORMAL
[2025-03-16 14:18] LABS: Platelet Estimate SLIGHTLY DECREASED (NORMAL)
--- NOTE | 2025-03-16 15:02 | PC.NURSE ---
Patient's found attempting to remove recliner from RP patient care area. Informed patient that unfortunately, recliners cannot be moved as they are used for patient care. Family member became extremely agitated, yelling that this RN was using my power against him . Informed family member charger tester would be in to speak w/ about the need to not move recliners. aircrewman Dayana made aware.
--- NOTE | 2025-03-16 15:28 | PC.NURSE ---
radiology contact re: pt port- ? able to be used for Ct- Radiology to advise
--- NOTE | 2025-03-16 15:45 | PC.NURSE ---
verified with pt wallet card- pt has single septum bard power port ct safe (300pSI) and MR safe.
--- OUTSIDE RECORDS SUMMARY | 2025-03-16 15:58 | XMS_ITS | Encounter Summary ---
Author Name Department of [place] ([place] Organization Department of [facility] ([place]) Address [address] [place] [id number] Care Team Providers Care Value Advisor Name Role Phone YAHAIRA ESCALANTE Primary Care [...] Bueno's Name Patient's Relationship to Policy Bueno [facility] Feb 28, 2004 Jul 01, 2026 [id number] [phone] ЕЛЕНА JORDAN PATIENT [facility] Feb 28, 2004 Jul 01, 2026 [facility] [id number] JULIANЕЛЕНА PATIENT [facility] W/OME DICAR E Feb 28, 2004 Jul 01, 2026 [facility] [id number] [phone] ЕЛЕНА JORDAN PATIENT [facility] Feb 28, 2004 Jul 01, 2026 [id number] [phone] KIKO JORDAN JR SPOUSE [facility] Feb 28, 2004 Jul 01, 2026 [id number] ЕЛЕНА JORDAN PATIENT [facility] Feb 28, 2004 Jul 01, 2026 [facility] [id number] [phone] ЕЛЕНА JORDAN PATIENT [facility] Jun 18, 2015 Jul 01, 2026 [facility] [id number] 88 SUMMER JORDANTA PATIENT [facility] Jan 19, 2013 Jul 01, 2026 [facility] [id number] SUMMER JORDANTA PATIENT [facility] Sep 22, 2012 Jul 01, 2026 [facility] [id number] SUMMER JORDANTA PATIENT [facility] Sep 22, 2012 Jul 01, 2026 [facility] [id number] KIKO JORDAN JR SPOUSE [facility] Sep 22, 2012 Jul 01, 2026 [facility] [id number] ЕЛЕНА JORDAN PATIENT [facility] Feb 28, 2004 Jul 01, 2026 [facility] [id number] [phone] ЕЛЕНА JORDAN PATIENT [facility]SANDRA MARAN [facility] Jun 18, 2015 [facility] [id number] [phone] ЕЛЕНА JORDAN PATIENT Selected Encounter This section includes the information on record at CT for the Encounter. Date/Time Encounter Type Encounter Description Reason Provider Source Sep 04, 2024 11:30 AM OFFICE O/P EST MOD 30 [facility] - IND ICD-10-CM F33.8 Other recurrent depressive disorders KENDALL ZHANG Ana Encounter Template Text not used by CT Assessments - Encounter Diagnoses This section includes the primary and secondary diagnoses documented for the Encounter. Date/Time Primary/Secondary Diagnosis Diagnosis Name Provider Source Sep 04, 2024 12:01 PM PRIMARY Other recurrent depressive disorders AZAEL ZHANG Plan of Treatment: Future Appointments (+ 6 months) and Future Tests (+/- 45 days) The Plan of Treatment section includes future care activities for the patient from all CT treatmentfacilities. This section includes future appointments and future orders which are active, pending or scheduled. Future Appointments This section includes appointments that were scheduled to occur 6 months from the date of the Encounter, up to a maximum of 20 appointments. The data comes from all [facility]. Appointment Date/Time Appointment Type Appointme nt Facility Name Sep 14, 2024 02:00 PM AMBULATORY - MEDICINE [facility] Sep 15, 2024 11:30 AM AMBULATORY - MEDICINE [facility] Feb 23, 2025 02:30 PM AMBULATORY - PSYCHIATRY [facility] Active, Pending, and Scheduled Orders This section includes a listing of several types of active, pending, and scheduled orders, including clinic medications orders, diagnostic test orders, procedure orders and consult orders; where the start date of the order is 45 days before the date of the Encounter or 45 days after the date of theEncounter. The data comes from all [facility]. Test Date/Time Test Type Test Details Facility Name Sep 14, 2024 02:23 PM Consult Order ENDOCRINE/ [facility] OUTPT Cons Fermentation Engineer's Choice [facility] Lab Results: +/- 30 days of the encounter This section includes the Chemistry and Hematology Lab Results on record with CT for the patient. Radiology Reports and Pathology Reports are provided separately, in subsequent sections. Lab Results This section contains the Chemistry/Hematology Results that were resulted 30 days before or 30 daysafter the date of the Encounter. Date/Time Source Result Type Result - Unit Interpretation Reference Range Specimen Type Comment Sep 14, 2024 02:48 PM [facility] HEMOGLOBIN A1C PANEL BLOOD Specimen Type: BLOOD Comment: Values obtained from A1C measurements can vary. For atypical A1C assays, a reported value of 7.0 could actually be between 6.72 and 7.28 if measured by a reference method. A reported value of 9.0 could actually be between 8.73 and 9.27. Ref: http://www.ngsp .org/CAPdata.as p Ordering Provider: YAHAIRA ESCALANTE Report Released Date/Time: Sep 14, 2024 02:24 PM Reporting Lab: [address] [address] Performing Lab: [address] [address] HEMOGLOBIN A1C 8.1 H 4.0-5.6 Sep 14, 2024 02:48 PM [facility] MICROALBUMIN CREATININE RATIO PANEL URINE Spe cimen Type: URINE No comment entered. Ordering Provider: YAHAIRA ESCALANTE Report Released Date/Time: Sep 14, 2024 02:25 PM Reporting Lab: [facility] [address] [facility] [address] Performing Lab: [address] [address] MICROALBUMIN/CREATININE RATIO canc mg/g 0-29.9 MICROALBUMIN,QUANTITATIVE < 0.5 mg/dL RR UNAVAIL CREATININE URINE 27.03 mg/dL Social History: Smoking Status (Most current) and Tobacco Use (All prior to encounter date) This section includes the most current, and the historical, smoking and tobacco- related health factors from the CT facility where the Encounter took place. Current Smoking Status This section includes the most current smoking, or tobacco-related health factor, from the [place] facility where the Encounter took place. Date/Time Current Smoking Status Comment [facility] Jan 24, 2022 02:00 PM VA-TOBACCO NEVER USED [facility] Tobacco Use History This section includes a history of the smoking, or tobacco-related health factors, that were collected on or before the date of the Encounter. The data comes from the CT facility where the Encounter took place. Date/Time Smoking Status/Tobacco Use Comment F acility Nov 29, 2015 02:08 PM LIFETIME NON-TOBACCO USER [facility] Advance Directives: All historical and current Section Date Range: From patient's date of to the date document was created. This section includes ALL of a patient's completed or amended CT Advance and Rescinded Directives. The entries below indicate that a directive exists for the patient, but an actual copy is not included with this document. The data comes from all CT facilities. Date Advance Directives Provider Source Sep 08, 2009 ADVANCE DIRECTIVE CHOLO CONRAD [facility] Encounter Notes: All associated encounter [...] Adjustment disorder with anxious mood (SNOMED CT 63114020) 9. Hydradenitis * 10. Type 2 diabetes mellitus (SNOMED CT 96894990) 11. Insomnia * 12. Hysterectomy * 13. Dizziness * 14. Somatization Disorder 15. Obesity (SNOMED CT 415254829) 16. Headache * 17. Hypertension (SNOMED CT 27247075) 18. Hyperlipidemia (SNOMED CT 19362528) 19. CONRADO - Generalized anxiety disorder (SNOMED CT 05227413) 20. Depression (SNOMED CT 39085264) Active Outpatient Medications (including Supplies): Active Outpatient [...] denied suicidal and violent ideation, but the [facility] information and number were reviewed [...] with the patient. Patient sometimes uses MELATONIN [id number] for sleep, in addition to hydroxyzine, well-tolerated [...] this [facility] (local) and dispensed from another CT or [facility]D facility (remote) as well as [...] MD STAFF PSYCHIATRIST Signed: 09/04/2024 12:01 AZAEL ZHANG
--- OUTSIDE RECORDS SUMMARY | 2025-03-16 15:58 | XMS_ITS | Encounter Summary ---
Author Name Department [place] Organization [place] Address [address] [place] [address] Care Team Providers Care Senior Officer Name Role Phone YAHAIRA ESCALANTE Primary Care [...] Bueno's Name Patient's Relationship to Policy Bueno [facility] Feb 28, 2004 Jul 01, 2026 [facility] [id number] ЕЛЕНА JORDAN PATIENT W/OME DICAR E Feb 28, 2004 Jul 01, 2026 [facility] [id number] [phone] ЕЛЕНА JORDAN PATIENT [facility] Feb 28, 2004 Jul 01, 2026 [id number] [phone] KIKO JORDAN JR SPOUSE [facility] Feb 28, 2004 Jul 01, 2026 [id number] [phone] ЕЛЕНА JORDAN PATIENT [facility] Feb 28, 2004 Jul 01, 2026 [id number] [phone] ЕЛЕНА JORDAN PATIENT [facility] Feb 28, 2004 Jul 01, 2026 [facility] [id number] [phone] ЕЛЕНА JORDAN PATIENT [facility] Jun 18, 2015 Jul 01, 2026 [facility] [id number] [phone] ЕЛЕНА JORDAN PATIENT [facility] Jan 19, 2013 Jul 01, 2026 [facility] [id number] [phone] ЕЛЕНА JORDAN PATIENT [facility] Sep 22, 2012 Jul 01, 2026 [facility] [id number] 88 ЕЛЕНА JORDAN PATIENT [facility] Sep 22, 2012 Jul 01, 2026 [facility] [id number] KIKO JORDAN JR SPOUSE [facility] Sep 22, 2012 Jul 01, 2026 [facility] [id number] 88 ЕЛЕНА JORDAN PATIENT [facility] Feb 28, 2004 Jul 01, 2026 [facility] [id number] [phone] ЕЛЕНА JORDAN PATIENT [facility]SANDRA MARAN [facility] Jun 18, 2015 [facility] [id number] [phone] ЕЛЕНА JORDAN PATIENT Selected Encounter This section includes the information on record at [place] for the Encounter. Date/Time Encounter Type Encounter Description Reason Pro vider Source Apr 23, 2024 11:30 PM Outpatient Encounter ADMIN PAT ACTIVTIES (MASNONCT) IHE Encounter Template Text not used by [place] Plan of Treatment: Future Appointments (+ 6 months) and Future Tests (+/- 45 days) The Plan of Treatment section includes future care activities for the patient [facility] This section includes future appointments and future orders which are active, pending or scheduled. Future Appointments This section includes appointments that were scheduled to occur 6 months from the date of the Encounter, up to a maximum of 20 appointments. The data comes from all [facility] facilities. Appointment Date/Time Appointment Type Appointme nt Facility Name Apr 28, 2024 10:00 AM AMBULATORY - PSYCHIATRY [facility] May 05, 2024 03:00 PM AMBULATORY - MEDICINE [facility] [place] [facility] Jun 02, 2024 02:30 PM AMBULATORY - PSYCHIATRY [facility] Jun 04, 2024 03:30 PM AMBULATORY - MEDICINE [facility] [place] [place] [facility] Jul 08, 2024 03:00 PM AMBULATORY - PSYCHIATRY [facility] Jul 09, 2024 01:30 PM AMBULATORY - SURGERY [facility] Sep 04, 2024 11:30 AM AMBULATORY - PSYCHIATRY [facility] Sep 14, 2024 02:00 PM AMBULATORY - MEDICINE [facility] Sep 15, 2024 11:30 AM [facility] Active, Pending, and Scheduled Orders This section includes a listing of several types of active, pending, and scheduled orders, including clinic medications orders, diagnostic test orders, procedure orders and consult orders; where the start date of the order is 45 days before the date of the Encounter or 45 days after the date of theEncounter. The data comes from all [place] treatment facilities. Test Date/Time Test Type Test Details Facility Name March 18, 2024 12:00 AM Laboratory - Chemistry Order HEMOGLOBIN [facility] B[facility] Jun 02, 2024 09:21 PM Consult Order PSYCHOTHERAPY [facility] OUTPT Cons [facility]ospice Manager[facility] Lab Results: +/- 30 days of the encounter This section includes the Chemistry and Hematology Lab Results on record with [facility] for the patient. Radiology Reports and Pathology Reports are provided separately, in subsequent sections. Lab Results This section contains the Chemistry/Hematology Results that were resulted 30 days before or 30 daysafter the date of the Encounter. Date/Time Source Result Type Result - Unit Interpretation Reference Range Specimen Type Comment Apr 21, 2024 02:06 PM [facility] HEMOGLOBIN A1C PANEL BLOOD Specimen Type: [...] April 17, 2024 01:15 PM Reporting Lab: [address] [address] Performing Lab: [address] [address] HEMOGLOBIN A1C 7.6 H 4.0-5.6 Apr 21, 2024 02:06 PM [facility] BASIC METABOLIC PANEL (non-fasting) SERUM Spe cimen Type: SERUM No comment entered. Ordering Provider: YAHAIRA ESCALANTE Report Released Date/Time: April 17, 2024 01:15 PM Reporting Lab: [address] [address] Performing Lab: [address] [address] UREA NITROGEN 15 mg/dL 7-25 GLUCOSE 140 mg/dL H 65-100 SODIUM 135 mmol/L 135-145 POTASSIUM 3.9 mmol/L 3.5-5.0 CHLORIDE 100 mmol/L 100-110 CO2 26 meq/L 20-30 CREATININE, Serum 0.69 mg/dL 0.50-1.40 eGFR(CKD-EPI 2020) >90 mL/min >60 Apr 21, 2024 02:06 PM [facility] CBC BLOOD Specimen Type: BLOOD No comment entered. Ordering Provider: YAHAIRA ESCALANTE Report Released Date/Time: April 17, 2024 01:15 PM Reporting Lab: [address] [address] Performing Lab: [address] [address] WBC 9.47 10*3/uL 4.50-11.00 RBC 4.60 10*6/uL [...] and tobacco- related health factors from the [place] facility where the Encounter took place. Current Smoking Status This section includes the most current smoking, or tobacco-related health factor, from the [place] facility where the Encounter took place. Date/Time Current Smoking Status Comment [place] Dec 09, 2023 01:00 PM VA-TOBACCO NEVER USED [facility] Tobacco Use History This section includes a history of the smoking, or tobacco-related health factors, that were collected on or before the date of the Encounter. The data comes from the [place] facility where the Encounter took place. Date/Time Smoking Status/Tobacco Use Comment [facility] Jan 04, 2023 03:00 PM [facility]TO[facility]ACCO [facility] USED [facility] [place] [facility] Feb 20, 2021 11:30 AM VA-TOBACCO NEVER USED [facility] Feb 18, 2020 09:39 AM VA-TOBACCO NEVER USED [place] [facility] [place] [facility] Dec 02, 2018 03:30 PM VA-TOBACCO FORMER USER [facility] [place] [facility] Dec 02, 2018 03:30 PM VA-TOBACCO QUIT 15 YRS OR MORE [facility] [place] [facility] Feb 28, 2018 02:37 PM QUIT TOBACCO USE > 7 YEARS AGO [facility] [place] [facility] Nov 23, 2016 10:49 AM LIFETIME NON-TOBACCO USER [place] [facility] [place] [facility] April 10, 2005 09:23 AM LIFETIME NON-SMOKER [place] [facility] [place] [facility] April 10, 2005 09:23 AM LIFETIME [facility]TOBACCO [facility] Advance Directives: All historical and current Section Date Range: From patient's date of to the date document was created. This section includes ALL of a patient's completed or amended [place] Advance and Rescinded Directives. The entries below indicate that a directive exists for the patient, but an actual copy is not included with this document. The data comes from all [place] facilities. Date Advance Directives Provider Source Sep 08, 2009 ADVANCE DIRECTIVE CHOLO CONRAD [facility] Encounter Notes: All associated encounter notes This section contains the clinical notes associated to the Encounter. Date/Time Encounter Note(s) Provider Source Apr 23, 2024 11:30 PM PHARMACY NOTE: LOCAL TITLE: V1 PHARMACY CUSTOMER CARE MEDICATION RENEWAL STANDARD TITLE: PHARMACY NOTE DATE OF NOTE: APR 23, 2024@23:30 ENTRY DATE: APR 23, 2024@23:30:06 AUTHOR: BOB MARTINEZ EXP COSIGNER: URGENCY: STATUS: COMPLETED Date: Apr Division: [place] Pt referred by Pharmacy Call Center for medication renewal: Non-controlled/maintenance medication Medications requested: [id number] HYDROCHLOROTHIAZIDE 25MG TAB Defer to primary care provider To be mailed . Please review and renew if appropriate. *This note was generated by [facility]/[place] Pharmacy Customer Care. If you have any questions or need assistance, do not contact this author. Please refer all questions to your local, on-site pharmacy departments. /rajeev/ BOB MARTINEZ CPhT [place], [place]/Pharmacy Customer Care Signed: 04/23/2024 23:30 Receipt Acknowledged By: 04/24/2024 15:32 /es/ RUBI MCMILLAN Nurse Practitioner 04/24/2024 07:48 /rajeev/ LEVI BETANCUR, MSN, RN, CNL PRIMARY CARE TEAM NURSE OBB MARTINEZ [facility]
--- OUTSIDE RECORDS SUMMARY | 2025-03-16 15:58 | XMS_ITS | Encounter Summary ---
Author Name [place] Organization [place] Address [address] [place] [address] Care Team Providers Care Reinforcing Steel Worker Name Role Phone YAHAIRA ESCALANTE Primary Care [...] Bueno's Name Patient's Relationship to Policy Bueno [facility] Feb 28, 2004 Jul 01, 2026 [facility] [id number] CHANDANCASTRO ЕЛЕНА PATIENT [facility] W/OME DICAR E Feb 28, 2004 Jul 01, 2026 [facility] [id number] [phone] CHANDANЕЛЕНА ERAZO PATIENT [facility] Feb 28, 2004 Jul 01, 2026 [id number] KIKO JORDAN JR SPOUSE [facility] Feb 28, 2004 Jul 01, 2026 [id number] [phone] CHANDANЕЛЕНА ERAZO PATIENT [facility] Feb 28, 2004 Jul 01, 2026 [id number] [phone] ЕЛЕНА JORDAN PATIENT [facility] Feb 28, 2004 Jul 01, 2026 [facility] [id number] 88 ЕЛЕНА JORDAN PATIENT [facility] Jun 18, 2015 Jul 01, 2026 [facility] [id number] [phone] SUMMER JORDANTA PATIENT [facility] Jan 19, 2013 Jul 01, 2026 [facility] [id number] 88 SUMMER JORDANTA PATIENT [facility] Sep 22, 2012 Jul 01, 2026 [facility] [id number] 88 SUMMER JORDANTA PATIENT [facility] Sep 22, 2012 Jul 01, 2026 [facility] [id number] [phone] JULIAN, ЕЛЕНА PATIENT [facility] Sep 22, 2012 Jul 01, 2026 [facility] [id number] [phone] KIKO JORDAN JR SPOUSE [facility] Feb 28, 2004 Jul 01, 2026 [facility] [id number] [phone] ЕЛЕНА JORDAN PATIENT [facility]SANDRA MARAN [facility] Jun 18, 2015 [facility] [id number] 88 ЕЛЕНА JORDAN PATIENT Selected Encounter This section includes the information on record at [place] for the Encounter. Date/Time Encounter Type Encounter Description Reason Pro vider Source IHE Encounter Template Text not used by [place] Advance Directives: All historical and current Section Date Range: From patient's date of to the date document was created. This section includes ALL of a patient's completed or amended [place] Advance and Rescinded Directives. The entries below indicate that a directive exists for the patient, but an actual copy is not included with this document. The data comes from all [place] facilities. Date Advance Directives Provider Source Sep 08, 2009 ADVANCE DIRECTIVE CHOLO CONRAD [facility]
--- OUTSIDE RECORDS SUMMARY | 2025-03-16 15:59 | XMS_ITS | Encounter Summary ---
Author Name Department of [place] Affairs ([place]) Organization [facility] ([place] Address [address] [place] [id number] Care Team Providers Care Costume Design Teacher Name Role Phone YAHAIRA ESCALANTE Primary [...] Bueno's Name Patient's Relationship to Policy Bueno [facility] Feb 28, 2004 Jul 01, 2026 [facility] [id number] ЕЛЕНА JORDAN PATIENT W/OME DICAR E Feb 28, 2004 Jul 01, 2026 [facility] [id number] CHANDANCASTRO ЕЛЕНА PATIENT [facility] Feb 28, 2004 Jul 01, 2026 [id number] [phone] KIKO JORDAN JR SPOUSE [facility] Feb 28, 2004 Jul 01, 2026 [id number] [phone] ЕЛЕНА JORDAN PATIENT [facility] Feb 28, 2004 Jul 01, 2026 [id number] ЕЛЕНА JORDAN PATIENT [facility] Feb 28, 2004 Jul 01, 2026 [id number] ЕЛЕНА JORDAN PATIENT [facility] Jun 18, 2015 Jul 01, 2026 [facility] [id number] 88 SUMMER JORDANTA PATIENT [facility] Jan 19, 2013 Jul 01, 2026 [facility] [id number] 88 SUMMER JORDANTA PATIENT [facility] Sep 22, 2012 Jul 01, 2026 [facility] [id number] SUMMER JORDANTA PATIENT [facility] Sep 22, 2012 Jul 01, 2026 [facility] [id number] 88 JULIAN, ЕЛЕНА PATIENT [facility] Sep 22, 2012 Jul 01, 2026 [facility] [id number] KIKO JORDAN JR SPOUSE [facility] Feb 28, 2004 Jul 01, 2026 [facility] [id number] ЕЛЕНА JORDAN PATIENT [facility]/SANDRA MARAN [facility] Jun 18, 2015 [facility] [id number] [phone] ЕЛЕНА JORDAN PATIENT Selected [...] 20 appointments. The data comes from all [facility]. Appointment Date/Time Appointment Type Appointme nt Facility Name Jun 04, 2024 03:30 PM [facility] Jul 08, 2024 03:00 PM AMBULATORY - [facility]CHIATRY [facility] Jul 09, 2024 01:30 PM AMBULATORY - SURGERY [facility] Sep 04, 2024 11:30 AM AMBULATORY - PSYCHIATRY [facility] Sep 14, 2024 02:00 PM AMBULATORY - MEDICINE [facility] Sep 15, 2024 11:30 AM AMBULATORY MEDICINE [facility] Active, Pending, and Scheduled Orders This section includes a listing of several types of active, pending, and scheduled orders, including clinic medications orders, diagnostic test orders, procedure orders and consult orders; where the start date of the order is 45 days before the date of the Encounter or 45 days after the date of theEncounter. The data comes from all [facility]. Test Date/Time Test Type Test Details Facility Name Jun 02, 2024 09:21 PM Consult Order PSYCHOTHERAPY SOPC OUTPT Cons Library Clerical Assistant's Choice [facility] Jun 18, 2024 12:00 AM Laboratory - Chemistry Order HEMOGLOBIN A1C PANEL BLOOD (LAV-BLOOD) [facility] Social History: Smoking Status (Most current) [...] 24, 2022 02:00 PM VA-TOBACCO NEVER USED [facility] Tobacco Use History This section includes a history of the smoking, or tobacco-related health factors, that were collected on or before the date of the Encounter. The data comes from the [place] facility where the Encounter took place. Date/Time Smoking Status/Tobacco Use Comment F acility Nov 29, 2015 02:08 PM LIFETIME NON-TOBACCO USER [facility] Advance Directives: All historical and current Section [...] Sep 08, 2009 ADVANCE DIRECTIVE [facility] Encounter Notes: All associated encounter notes This section contains the clinical notes associated to the Encounter. Date/Time Encounter Note(s) Provider Source Jun 02, 2024 08:35 PM ADDENDUM: LOCAL TITLE: Addendum STANDARD TITLE: ADDENDUM DATE OF NOTE: JUN 02, 2024@20:35:30 ENTRY DATE: JUN 02, 2024@20:35:30 AUTHOR: AZAEL ZHAGN COSIGNER: URGENCY: STATUS: COMPLETED Patient request psychotherapist in clinic to help her cope with losses, she prefers female therapist /rajeev/ AZAEL ZHANG MD STAFF PSYCHIATRIST Signed: 06/02/2024 20:35 Receipt Acknowledged By: 06/02/2024 21:20 /rajeev/ Darwin Aponte Psy.D. CREDIT CARD CONTROL CLERK, CLINICAL PSYCHOLOGIST --- Original Document --- 06/02/24 [...] Adjustment disorder with anxious mood (SNOMED CT 12420595) 9. Hydradenitis * 10. Type 2 diabetes mellitus (SNOMED CT 31221574) 11. Insomnia * 12. Hysterectomy * 13. Dizziness * 14. Somatization Disorder 15. Obesity (SNOMED CT 509171840) 16. Headache * 17. Hypertension (SNOMED CT 06195493) 18. Hyperlipidemia (SNOMED CT 09722947) 19. CONRADO - Generalized anxiety disorder (SNOMED CT 59564760) 20. Depression (SNOMED CT 16956417) Active Outpatient Medications (including Supplies): Active Outpatient [...] denied suicidal and violent ideation, but the [place] [facility] information and number were reviewed [...] it for insomnia. Patient sometimes uses MELATONIN [id number]-[id number] for sleep, in addition to hydroxyzine, well-tolerated [...] STAFF PSYCHIATRIST Signed: 06/02/2024 20:35 AZAEL ZHANG [facility] Jun 02, 2024 03:22 PM PSYCHIATRY NOTE: [...] Adjustment disorder with anxious mood (SNOMED CT 13815474) 9. Hydradenitis * 10. Type 2 diabetes mellitus (SNOMED CT 40770182) 11. Insomnia * 12. Hysterectomy * 13. Dizziness * 14. Somatization Disorder 15. Obesity (SNOMED CT 168202461) 16. Headache * 17. Hypertension (SNOMED CT 71606314) 18. Hyperlipidemia (SNOMED CT 12166265) 19. CONRADO - Generalized anxiety disorder (SNOMED CT 53077110) 20. Depression (SNOMED CT 06537671) Active Outpatient Medications (including Supplies): Active Outpatient [...] it for insomnia. Patient sometimes uses MELATONIN fsgr-hed-[id number] for sleep, in addition to hydroxyzine, well-tolerated [...] of active outpatient prescriptions dispensed from this [place] (local) and dispensed from another [place] or DoD facility (remote) as well as [...]
--- OUTSIDE RECORDS SUMMARY | 2025-03-16 15:59 | XMS_ITS | Encounter Summary ---
Author Name Department [place] Organization [place] Address [address] [place] [address] Care Team Providers Care Town Clerk Name Role Phone YAHAIRA ESCALANTE Primary Care [...] Bueno's Name Patient's Relationship to Policy Bueno [facility] Feb 28, 2004 Jul 01, 2026 [facility] [id number] ЕЛЕНА JORDAN PATIENT W/OME DICAR E Feb 28, 2004 Jul 01, 2026 [facility] [id number] 88 ЕЛЕНА JORDAN PATIENT [facility] Feb 28, 2004 Jul 01, 2026 [id number] KIKO JORDAN JR SPOUSE [facility] Feb 28, 2004 Jul 01, 2026 [id number] ЕЛЕНА JORDAN PATIENT [facility] Feb 28, 2004 Jul 01, 2026 [id number] ЕЛЕНА JORDAN PATIENT [facility] Feb 28, 2004 Jul 01, 2026 [facility] [id number] ЕЛЕНА JORDAN PATIENT [facility] Jun 18, 2015 Jul 01, 2026 [facility] [id number] [phone] ЕЛЕНА JORDAN PATIENT [facility] Jan 19, 2013 Jul 01, 2026 [facility] [id number] [phone] ЕЛЕНА JORDAN PATIENT [facility] Sep 22, 2012 Jul 01, 2026 [facility] [id number] 88 ЕЛЕНА JORDAN PATIENT [facility] Sep 22, 2012 Jul 01, 2026 [facility] [id number] [phone] KIKO JORDAN JR SPOUSE [facility] Sep 22, 2012 Jul 01, 2026 [facility] [id number] 88 ЕЛЕНА JORDAN PATIENT [facility] RX [facility] Feb 28, 2004 Jul 01, 2026 [facility] [id number] [phone] ЕЛЕНА JORDAN PATIENT [facility]/SANDRA MARAN [facility] Jun 18, 2015 [facility] [id number] [phone] ЕЛЕНА JORDAN PATIENT Selected Encounter This section includes the information on record at [place] for the Encounter. Date/Time Encounter Type Encounter Description Reason Pro vider Source Jul 15, 2024 02:59 PM Outpatient Encounter ADMIN PAT ACTIVTIES (MASNONCT) IHE Encounter Template Text not used by [place] Plan of Treatment: Future Appointments (+ 6 months) and Future Tests (+/- 45 days) The Plan of Treatment section includes future care activities for the patient from all [place] [facility] This section includes future appointments and future orders which are active, pending or scheduled. Future Appointments This section includes appointments that were scheduled to occur 6 months from the date of the Encounter, up to a maximum of 20 appointments. The data comes from all [place] treatment facilities. Appointment Date/Time Appointment Type Appointme nt Facility Name Sep 04, 2024 11:30 AM AMBULATORY - PSYCHIATRY [facility] Sep 14, 2024 02:00 PM AM[place]ORY [place]IC[place] [facility] [place] [facility] Sep 15, 2024 11:30 AM AMBULATORY - MEDICINE [facility] [place] [facility] Active, Pending, and Scheduled Orders This section includes a listing of several types of active, pending, and scheduled orders, including clinic medications orders, diagnostic test orders, procedure orders and consult orders; where the start date of the order is 45 days before the date of the Encounter or 45 days after the date of theEncounter. The data comes from all [place] treatment facilities. Test Date/Time Test Type Test Details Facility Name Jun 02, 2024 09:21 PM Consult Order PSYCHOTHERAPY SOPC OUTPT Cons Barrel Lathe Operator's Choice [place] Jun 18, 2024 12:00 AM Laboratory - Chemistry Order HEMOGLOBIN A1C PANEL BLOOD (LAV-BLOOD) [place] [facility] Social History: Smoking Status (Most current) [...] VA-TOBACCO NEVER USED [place] [facility] [facility] Tobacco Use History This section includes a history of the smoking, or tobacco-related health factors, that were collected on or before the date of the Encounter. The data comes from the [place] facility where the Encounter took place. Date/Time Smoking Status/Tobacco Use Comment F acility Jan 04, 2023 03:00 PM VA-TOBACCO NEVER USED [facility] [place] [facility] Feb 20, 2021 11:30 AM VA-TOBACCO NEVER USED [facility] [place] [facility] Feb 18, 2020 09:39 AM VA-TOBACCO NEVER USED [facility] [place] [facility] Dec 02, 2018 03:30 PM VA-TOBACCO FORMER USER [facility] [place] [facility] Dec 02, 2018 03:30 PM VA-TOBACCO QUIT 15 YRS OR MORE [place] [facility] [facility] Feb 28, 2018 02:37 PM QUIT TOBACCO USE > 7 YEARS AGO [facility] Nov 23, 2016 10:49 AM LIFETIME NON-TOBACCO USER [facility] April 10, 2005 09:23 AM LIFETIME NON-SMOKER [facility] April 10, 2005 09:23 AM LIFETIME NON-TOBACCO USER [facility] Advance Directives: All historical and current Section [...] Sep 08, 2009 ADVANCE DIRECTIVE ANAMARIAANATOLYNadja Travis [facility] Encounter Notes: All associated encounter notes This section contains the clinical notes associated to the Encounter. Date/Time Encounter Note(s) Provider Source Jul 15, 2024 02:59 PM PHARMACY NOTE: LOCAL TITLE: PHARMACY CUSTOMER CARE MEDICATION RENEWAL STANDARD TITLE: PHARMACY NOTE DATE OF NOTE: JUL 15, 2024@14:59 ENTRY DATE: JUL 15, 2024@14:59:41 AUTHOR: BASHIR ROBLES COSIGNER: URGENCY: STATUS: COMPLETED Date: Jun Division: [facility] referred by Pharmacy Call Center for medication renewal: Non-controlled/maintenan ce medication Medications requested: [id number] AMLODIPINE BESYLATE 5MG TAB Defer to primary care provider To be mailed . Please review and renew if appropriate. *This note was generated by [facility] Pharmacy Customer Care. If you have any questions or need assistance, do not contact this author. Please refer all questions to your local, on-site pharmacy departments. /rajeev/ BASHIR ROBLES [facility] Automotive Product Specialist, [place]/Pharmacy Customer Care Signed: 07/15/2024 15:00 Receipt Acknowledged By: 07/16/2024 13:54 /rajeev/ RUBI MCMILLAN Nurse Practitioner 07/15/2024 15:02 /rajeev/ LEVI BETANCUR, MSN, RN, CNL PRIMARY CARE TEAM NURSE [facility]
--- OUTSIDE RECORDS SUMMARY | 2025-03-16 15:59 | XMS_ITS ---
Author Name [facility] [place] Organization [facility] [place] Address [address] [place] [address] Care Team Providers Care Musical Instrument Maker Or Repairer Name Role Phone YAHAIRA ESCALANTE Primary Care [...] Patient's Relationship to Policy Bueno [facility] Feb 28, 2004 Jul 01, 2026 [facility] [id number] ЕЛЕНА JORDAN PATIENT [facility] W/OME DICAR E Feb 28, 2004 Jul 01, 2026 [facility] [id number] [phone] ЕЛЕНА JORDAN PATIENT [facility] Feb 28, 2004 Jul 01, 2026 [id number] KIKO JORDAN JR SPOUSE [facility] Feb 28, 2004 Jul 01, 2026 [id number] [phone] ЕЛЕНА JORDAN PATIENT [facility] Feb 28, 2004 Jul 01, 2026 [id number] [phone] ЕЛЕНА JORDAN PATIENT [facility] Feb 28, 2004 Jul 01, 2026 [id number] ЕЛЕНА JORDAN PATIENT [facility] Jun 18, 2015 Jul 01, 2026 [facility] [id number] [phone] 7 ЕЛЕНА JORDAN PATIENT [facility] Jan 19, 2013 Jul 01, 2026 [facility] [id number] 88 SUMMER JORDANTA PATIENT [facility] Sep 22, 2012 Jul 01, 2026 [facility] [id number] 88 ЕЛЕНА JORDAN PATIENT [facility] Sep 22, 2012 Jul 01, 2026 [facility] [id number] 88 ЕЛЕНА JORDAN PATIENT [facility] RX [facility] Sep 22, 2012 Jul 01, 2026 [facility] [id number] 10 KIKO JORDAN JR SPOUSE [facility] Feb 28, 2004 Jul 01, 2026 [facility] [id number] [phone] ЕЛЕНА JORDAN PATIENT [facility]/SANDRA MARAN [facility] Jun 18, 2015 [facility] [id number] 88 ЕЛЕНА JORDAN PATIENT Selected Encounter This section includes the information on record at [place] for the Encounter. Date/Time Encounter Type Encounter Description Reason Provider Source Apr 21, 2024 01:30 PM OFF/OP EST MARCH X REQ PHY/QHP PRIMARY CARE/MEDICINE ICD-10-CM H26.8 Other specified cataract LEVI BETANCUR IHAna Encounter Template Text not used by [place] Assessments - Encounter Diagnoses This section includes the primary and secondary diagnoses documented for the Encounter. Date/Time Primary/Secondary Diagnosis Diagnosis Name Provider Source May 01, 2024 12:29 PM PRIMARY Other specified cataract NAGI PINO [place] [facility] Plan of Treatment: Future Appointments (+ 6 months) and Future Tests (+/- 45 days) The Plan of Treatment section includes future care activities for the patient from all [place] treatmentfacilities. This section includes future appointments and future orders which are active, pending or scheduled. Future Appointments This section includes appointments that were scheduled to occur 6 months from the date of the Encounter, up to a maximum of 20 appointments. The data comes from all [facility]. Appointment Date/Time Appointment Type Appointme nt Facility Name Apr 28, 2024 10:00 AM AMBULATORY - PSYCHIATRY [facility] May 05, 2024 03:00 PM [facility] Jun 02, 2024 02:30 PM AMBULATORY - PSYCHIATRY [facility] Jun 04, 2024 03:30 PM [facility]UL[facility]ORY [facility] Jul 08, 2024 03:00 PM AMBULATORY - PSYCHIATRY [facility] Jul 09, 2024 01:30 PM AMBULATORY - SURGERY [facility] Sep 04, 2024 11:30 AM AMBULATORY - PSYCHIATRY [facility] Sep 14, 2024 02:00 PM [facility] Sep 15, 2024 11:30 AM AMBULATORY MEDICINE [facility] Active, Pending, and Scheduled Orders This section includes a listing of several types of active, pending, and scheduled orders, including clinic medications orders, diagnostic test orders, procedure orders and consult orders; where the start date of the order is 45 days before the date of the Encounter or 45 days after the date of theEncounter. The data comes from all [facility]. Test Date/Time Test Type Test Details Facility Name March 18, 2024 12:00 AM Laboratory - Chemistry Order HEMOGLOBIN A1C PANEL BLOOD ([facility]BLO[facility] Jun 02, 2024 09:21 PM Consult Order PSYCHOTHERAPY SOPC OUTPT Cons Burlapper's Choice [place] Lab Results: +/- 30 days of the encounter This section includes the Chemistry and Hematology Lab Results on record with [place] for the patient. Radiology Reports and Pathology Reports are provided separately, in subsequent sections. Lab Results This section contains the Chemistry/Hematology Results that were resulted 30 days before or 30 daysafter the date of the Encounter. Date/Time Source Result Type Result - Unit Interpretation Reference Range Specimen Type Comment Apr 21, 2024 02:06 PM [facility] HEMOGLOBIN A1C PANEL BLOOD Specimen Type: BLOOD [...] April 17, 2024 01:15 PM Reporting Lab: [address] [address] Performing Lab: [address] [address] HEMOGLOBIN A1C 7.6 H 4.0-5.6 Apr 21, 2024 02:06 PM [facility] BASIC METABOLIC PANEL (non-fasting) SERUM Spe cimen Type: SERUM No comment entered. Ordering Provider: YAHAIRA ESCALANTE Report Released Date/Time: April 17, 2024 01:15 PM Reporting Lab: [facility] [address] [facility] [address] Performing Lab: [address] [address] UREA NITROGEN 15 mg/dL 7-25 GLUCOSE 140 mg/dL H 65-100 SODIUM 135 mmol/L 135-145 POTASSIUM 3.9 mmol/L 3.5-5.0 CHLORIDE 100 mmol/L 100-110 CO2 26 meq/L 20-30 CREATININE, Serum 0.69 mg/dL 0.50-1.40 eGFR(CKD-EPI 2020) >90 mL/min >60 Apr 21, 2024 02:06 PM [facility] CBC BLOOD Specimen Type: BLOOD No comment entered. Ordering Provider: YAHAIRA ESCALANTE Report Released Date/Time: April 17, 2024 01:15 PM Reporting Lab: [address] [address] Performing Lab: [address] [address] WBC 9.47 10*3/uL 4.50-11.00 RBC 4.60 10*6/uL [...] and tobacco- related health factors from the [place] facility where the Encounter took place. Current Smoking Status This section includes the most current smoking, or tobacco-related health factor, from the [place] facility where the Encounter took place. Date/Time Current Smoking Status Comment [facility] Dec 09, 2023 01:00 PM VA-TOBACCO NEVER USED [place] [facility] [place] [facility] Tobacco Use History This section includes a history of the smoking, or tobacco-related health factors, that were collected on or before the date of the Encounter. The data comes from the [place] facility where the Encounter took place. Date/Time Smoking Status/Tobacco Use Comment F acility Jan 04, 2023 03:00 PM VA-TOBACCO NEVER USED [facility] [place] [facility] Feb 20, 2021 11:30 AM VA-TOBACCO NEVER USED [facility] [place] [facility] Feb 18, 2020 09:39 AM VA-TOBACCO NEVER USED [facility] [place] [facility] Dec 02, 2018 03:30 PM VA-TOBACCO FORMER USER [facility] [place] [facility] Dec 02, 2018 03:30 PM VA-TOBACCO QUIT 15 YRS OR MORE [facility] [place] [facility] Feb 28, 2018 02:37 PM QUIT TOBACCO USE > 7 YEARS AGO [facility] [place] [facility] Nov 23, 2016 10:49 AM LIFETIME NON-TOBACCO USER [facility] [place] [facility] April 10, 2005 09:23 AM LIFETIME NON-SMOKER [facility] [place] [facility] April 10, 2005 09:23 AM LIFETIME NON-TOBACCO USER [facility] [place] [facility] Advance Directives: All historical and current Section Date Range: From patient's date of to the date document was created. This section includes ALL of a patient's completed or amended [place] Advance and Rescinded Directives. The entries below indicate that a directive exists for the patient, but an actual copy is not included with this document. The data comes from all [place] facilities. Date Advance Directives Provider Source Sep 08, 2009 ADVANCE DIRECTIVE ANAMARIAANATOLYNadja Travis [facility] Encounter Notes: All associated encounter notes This [...] examination ordered by YAHAIRA ESCALANTE. /rajeev/ LEVI BETANCUR, MSN, RN, CNL PRIMARY CARE TEAM NURSE Signed: 04/21/2024 14:26 LEVI BETANCUR [place] [facility]
--- OUTSIDE RECORDS SUMMARY | 2025-03-16 15:59 | XMS_ITS | Encounter Summary ---
Author Name Department of [place]) Organization [facility] ([place]) Address [address] [place] [id number] Care Team Providers Care Ophthalmic Technician Name Role Phone YAHAIRA ESCALANTE Primary [...] Name Patient's Relationship to Policy Bueno [facility] Feb 28, 2004 Jul 01, 2026 [facility] [id number] ЕЛЕНА JORDAN PATIENT W/OME DICAR E Feb 28, 2004 Jul 01, 2026 [facility] [id number] [phone] CHANDANCASTRO ЕЛЕНА PATIENT [facility] Feb 28, 2004 Jul 01, 2026 [id number] [phone] KIKO JORDAN JR SPOUSE [facility] Feb 28, 2004 Jul 01, 2026 [id number] ЕЛЕНА JORDAN PATIENT [facility] Feb 28, 2004 Jul 01, 2026 [id number] ЕЛЕНА JORDAN PATIENT [facility] Feb 28, 2004 Jul 01, 2026 [id number] [phone] ЕЛЕНА JORDAN PATIENT [facility] RX [facility] Jun 18, 2015 Jul 01, 2026 [facility] [id number] SUMMER JORDANTA PATIENT [facility] Jan 19, 2013 Jul 01, 2026 [facility] [id number] 88 SUMMER JORDANTA PATIENT [facility] Sep 22, 2012 Jul 01, 2026 [facility] [id number] SUMMER JORDANTA PATIENT [facility] Sep 22, 2012 Jul 01, 2026 [facility] [id number] 88 JULIAN, ЕЛЕНА PATIENT [facility] Sep 22, 2012 Jul 01, 2026 [facility] [id number] KIKO JORDAN JR SPOUSE OPTUM RX PRESCRIPT [facility] Feb 28, 2004 Jul 01, 2026 [facility] [id number] [phone] ЕЛЕНА JORDAN PATIENT OPTUM/SANDRA MARAN [facility] Jun 18, 2015 [facility] [id number] [phone] ЕЛЕНА JORDAN PATIENT Selected Encounter This section includes the information on record at [place] for the Encounter. Date/Time Encounter Type Encounter Description Reason Provider Source Apr 28, 2024 10:00 AM OFFICE O/P EST MOD 30 MIN [facility] - IND ICD-10-CM F41.1 Generalized anxiety disorder KENDALL ZHANG Ana Encounter Template Text not used by [place] Assessments - Encounter Diagnoses This section includes the primary and secondary diagnoses documented for the Encounter. Date/Time Primary/Secondary Diagnosis Diagnosis Name Provider Source Apr 28, 2024 10:42 AM PRIMARY Generalized anxiety disorder AZAEL ZHANG Plan of Treatment: Future Appointments (+ 6 months) and Future Tests (+/- 45 days) The Plan of Treatment section includes future care activities for the patient from all [place] treatmentfacilities. This section includes future appointments and future orders which are active, pending or scheduled. Future Appointments This section includes appointments that were scheduled to occur 6 months from the date of the Encounter, up to a maximum of 20 appointments. The data comes from all [facility]. Appointment Date/Time Appointment Type Appointme nt Facility Name May 05, 2024 03:00 PM AMBULATORY - MEDICINE [facility] Jun 02, 2024 02:30 PM AMBULATORY - PSYCHIATRY [facility] Jun 04, 2024 03:30 PM AMBULATORY - MEDICINE [facility] Jul 08, 2024 03:00 PM AMBULATORY - PSYCHIATRY [facility] Jul 09, 2024 01:30 PM AMBULATORY - SURGERY [facility] Sep 04, 2024 11:30 AM AMBULATORY - PSYCHIATRY [facility] Sep 14, 2024 02:00 PM AMBULATORY - MEDICINE [facility] Sep 15, 2024 11:30 AM AMBULATORY - MEDICINE [facility] Active, Pending, and Scheduled Orders This section includes a listing of several types of active, pending, and scheduled orders, including clinic medications orders, diagnostic test orders, procedure orders and consult orders; where the start date of the order is 45 days before the date of the Encounter or 45 days after the date of theEncounter. The data comes from all [facility]. Test Date/Time Test Type Test Details Facility Name March 18, 2024 12:00 AM Laboratory - Chemistry Order HEMOGLOBIN A1C PANEL BLOOD (LAV-BLOOD) [facility] Jun 02, 2024 09:21 PM Consult Order PSYCHOTHERAPY SOPC OUTPT Cons [facility] Lab Results: +/- 30 days of the encounter This section includes the Chemistry and Hematology Lab Results on record with [place] for the patient. Radiology Reports and Pathology Reports are provided separately, in subsequent sections. Lab Results This section contains the Chemistry/Hematology Results that were resulted 30 days before or 30 daysafter the date of the Encounter. Date/Time Source Result Type Result - Unit Interpretation Reference Range Specimen Type Comment Apr 21, 2024 02:06 PM [facility] HEMOGLOBIN A1C PANEL BLOOD Specimen Type: [...] April 17, 2024 01:15 PM Reporting Lab: [facility] [address] [facility] [address] Performing Lab: [address] [address] HEMOGLOBIN A1C 7.6 H 4.0-5.6 Apr 21, 2024 02:06 PM [facility] BASIC METABOLIC PANEL (non-fasting) SERUM Spe cimen Type: SERUM No comment entered. Ordering Provider: YAHAIRA ESCALANTE Report Released Date/Time: April 17, 2024 01:15 PM Reporting Lab: [facility] [address] [facility] [address] Performing Lab: [address] [address] [facility] NITROGEN 15 mg/dL 7-25 GLUCOSE 140 mg/dL H 65-100 SODIUM 135 mmol/L 135-145 POTASSIUM 3.9 mmol/L 3.5-5.0 CHLORIDE 100 mmol/L 100-110 CO2 26 meq/L 20-30 CREATININE, Serum 0.69 mg/dL 0.50-1.40 eGFR(CKD-EPI 2020) >90 mL/min >60 Apr 21, 2024 02:06 PM [facility] CBC BLOOD Specimen Type: BLOOD No comment entered. Ordering Provider: YAHAIRA ESCALANTE Report Released Date/Time: April 17, 2024 01:15 PM Reporting Lab: [facility] [address] [address] Performing Lab: [address] [address] WBC 9.47 10*3/uL 4.50-11.00 RBC 4.60 10*6/uL [...] and tobacco- related health factors from the [place] facility where the Encounter took place. Current Smoking Status This section includes the most current smoking, or tobacco-related health factor, from the [place] facility where the Encounter took place. Date/Time Current Smoking Status Comment Facil ity Jan 24, 2022 02:00 PM VA-TOBACCO NEVER USED [facility] Tobacco Use History This section includes a history of the smoking, or tobacco-related health factors, that were collected on or before the date of the Encounter. The data comes from the [place] facility where the Encounter took place. Date/Time Smoking Status/Tobacco Use Comment F acility Nov 29, 2015 02:08 PM LIFETIME NON-TOBACCO USER [facility] Advance Directives: All historical and current Section Date Range: From patient's date of to the date document was created. This section includes ALL of a patient's completed or amended [place] Advance and Rescinded Directives. The entries below indicate that a directive exists for the patient, but an actual copy is not included with this document. The data comes from all [place] facilities. Date Advance Directives Provider Source Sep 08, 2009 ADVANCE DIRECTIVE CHOLO CONRAD [facility] Encounter Notes: All associated encounter notes [...] last evening -- see my addendum to [facility] clinical triage note from yesterday. She [...] Adjustment disorder with anxious mood (SNOMED CT 72714258) 9. Hydradenitis * 10. Type 2 diabetes mellitus (SNOMED CT 20006525) 11. Insomnia * 12. Hysterectomy * 13. Dizziness * 14. Somatization Disorder 15. Obesity (SNOMED CT 028338630) 16. Headache * 17. Hypertension (SNOMED CT 80135711) 18. Hyperlipidemia (SNOMED CT 83171283) 19. CONRADO - Generalized anxiety disorder (SNOMED CT 09703133) 20. Depression (SNOMED CT 87063140) Active Outpatient Medications (including Supplies): Active Outpatient [...] denied suicidal and violent ideation, but the [employer] Crisis Line information and number were reviewed [...] to keep this the same. 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 They had picked up a order I phoned in last night to [facility] pharm to cover withdrawal symptoms last [...] this medication reconciliation. Suicide Screen: C-SSRS Screening [place]-Suicide Severity Rating Scale (C-SSRS Screener) 1. Over [...]
--- OUTSIDE RECORDS SUMMARY | 2025-03-16 15:59 | XMS_ITS | Encounter Summary ---
Author Name Department of [place] Organization [facility] ([place]) Address [address] [place] [address] Care Team Providers Care Retail Assistant Store Manager Name Role Phone YAHAIRA ESCALANTE Primary [...] Name Patient's Relationship to Policy Bueno [facility] Feb 28, 2004 Jul 01, 2026 [facility] [id number] ЕЛЕНА JORDAN PATIENT W/OME DICAR E Feb 28, 2004 Jul 01, 2026 [facility] [id number] CHANDANCASTRO ЕЛЕНА PATIENT [facility] Feb 28, 2004 Jul 01, 2026 [id number] KIKO JORDAN JR SPOUSE [facility] Feb 28, 2004 Jul 01, 2026 [id number] ЕЛЕНА JORDAN PATIENT [facility] Feb 28, 2004 Jul 01, 2026 [id number] ЕЛЕНА JORDAN PATIENT [facility] Feb 28, 2004 Jul 01, 2026 [id number] ЕЛЕНА JORDAN PATIENT [facility] RX [facility] Jun 18, 2015 Jul 01, 2026 [facility] [id number] 88 SUMMER JORDANTA PATIENT [facility] Jan 19, 2013 Jul 01, 2026 [facility] [id number] 88 SUMMER JORDANTA PATIENT [facility] Sep 22, 2012 Jul 01, 2026 [facility] [id number] 88 SMUMER JORDANTA PATIENT [facility] Sep 22, 2012 Jul 01, 2026 [facility] [id number] JULIAN, ЕЛЕНА PATIENT [facility] Sep 22, 2012 Jul 01, 2026 [facility] [id number] KIKO JORDAN JR SPOUSE OPTUM RX PRESCRIPT [facility] Feb 28, 2004 Jul 01, 2026 [facility] [id number] ЕЛЕНА JORDAN PATIENT OPTUM/SANDRA MARAN [facility] Jun 18, 2015 [facility] [id number] [phone] ЕЛЕНА JORDAN PATIENT Selected Encounter This section includes the information on record at [place] for the Encounter. Date/Time Encounter Type Encounter Description Reason Provider Source Jul 08, 2024 03:00 PM OFFICE O/P EST MOD 30 MIN [facility] - IND ICD-10-CM F33.8 Other recurrent depressive disorders KENDALL ZHANG Ana Encounter Template Text not used by [place] Assessments - Encounter Diagnoses This section includes [...] care activities for the patient from all [place] treatmentfacilities. This section includes future appointments and future orders which are active, pending or scheduled. Future Appointments This section includes appointments that were scheduled to occur 6 months from the date of the Encounter, up to a maximum of 20 appointments. The data comes from all [facility]. Appointment Date/Time Appointment Type Appointme nt Facility Name Jul 09, 2024 01:30 PM AMBULATORY - SURGERY [facility] Sep 04, 2024 11:30 AM AMBULATORY - PSYCHIATRY [facility] Sep 14, 2024 02:00 PM AMBULATORY - MEDICINE [facility] Sep 15, 2024 11:30 AM AMBULATORY - MEDICINE [facility] Active, Pending, and Scheduled [...] theEncounter. The data comes from all [facility]. Test Date/Time Test Type Test Details Facility Name Jun 02, 2024 09:21 PM Consult Order PSYCHOTHERAPY SOPC OUTPT Cons Ethanol Maintenance Mechanic's Choice [place] Jun 18, 2024 12:00 AM Laboratory - Chemistry Order HEMOGLOBIN A1C PANEL BLOOD (LAV-BLOOD) [facility] Social History: Smoking Status (Most current) and Tobacco Use (All prior to encounter date) This section includes the most current, and the historical, smoking and tobacco- related health factors from the [place] facility where the Encounter took place. Current Smoking Status This section includes the most current smoking, or tobacco-related health factor, from the [place] facility where the Encounter took place. Date/Time Current Smoking Status Comment Bell romero Jan 24, 2022 02:00 PM VA-TOBACCO NEVER USED [place] Tobacco Use History This section includes a history of the smoking, or tobacco-related health factors, that were collected on or before the date of the Encounter. The data comes from the [place] facility where the Encounter took place. Date/Time Smoking Status/Tobacco Use Comment F acility Nov 29, 2015 02:08 PM LIFETIME NON-TOBACCO USER [place] Advance Directives: All historical and current Section Date Range: From patient's date of to the date document was created. This section includes ALL of a patient's completed or amended [place] Advance and Rescinded Directives. The entries below indicate that a directive exists for the patient, but an actual copy is not included with this document. The data comes from all [place] facilities. Date Advance Directives Provider Source Sep 08, 2009 ADVANCE DIRECTIVE ANAMARIAANATOLYNadja Thaddeus [facility] Encounter Notes: All associated encounter notes [...] days --some mild withdrawal symptoms, she will pickler helper prescription today and start again today. She [...] Adjustment disorder with anxious mood (SNOMED CT 11063816) 9. Hydradenitis * 10. Type 2 diabetes mellitus (SNOMED CT 34404652) 11. Insomnia * 12. Hysterectomy * 13. Dizziness * 14. Somatization Disorder 15. Obesity (SNOMED CT 138566455) 16. Headache * 17. Hypertension (SNOMED CT 41502715) 18. Hyperlipidemia (SNOMED CT 74978856) 19. CONRADO - Generalized anxiety disorder (SNOMED CT 80875631) 20. Depression (SNOMED CT 69828069) Active Outpatient Medications (including Supplies): Active Outpatient [...] denied suicidal and violent ideation, but the [employer] Crisis Line information and number were reviewed [...] with the patient. Patient sometimes uses MELATONIN [id number] for sleep, in addition to hydroxyzine, well-tolerated [...]
--- OUTSIDE RECORDS SUMMARY | 2025-03-16 15:59 | XMS_ITS | Encounter Summary ---
Author Name Department of Veter[place] Affairs ([place]) Organization [facility] [place] Address [address] [place] [address] Care Team Providers Care Inspector Toys Name Role Phone YAHAIRA ESCALANTE Primary Care [...] Bueno's Name Patient's Relationship to Policy Bueno [facility] Feb 28, 2004 Jul 01, 2026 [facility] [id number] ЕЛЕНА JORDAN PATIENT W/OME DICAR E Feb 28, 2004 Jul 01, 2026 [facility] [id number] [phone] ЕЛЕНА JORDAN PATIENT [facility] Feb 28, 2004 Jul 01, 2026 [id number] KIKO JORDAN JR SPOUSE [facility] Feb 28, 2004 Jul 01, 2026 [id number] ЕЛЕНА JORDAN PATIENT [facility] Feb 28, 2004 Jul 01, 2026 [id number] [phone] ЕЛЕНА JORDAN PATIENT [facility] Feb 28, 2004 Jul 01, 2026 [facility] [id number] [phone] ЕЛЕНА JORDAN PATIENT [facility] RX [facility] Jun 18, 2015 Jul 01, 2026 [facility] [id number] [phone] ЕЛЕНА JORDAN PATIENT [facility] RX [facility] Jan 19, 2013 Jul 01, 2026 [facility] [id number] [phone] ЕЛЕНА JORDAN PATIENT [facility]UM RX [facility] Sep 22, 2012 Jul 01, 2026 [facility] [id number] 10 KIKO JORDAN JR SPOUSE [facility] RX [facility] Sep 22, 2012 Jul 01, 2026 [facility] [id number] ЕЛЕНА JORDAN PATIENT [facility] RX [facility] Sep 22, 2012 Jul 01, 2026 [facility] [id number] [phone] ЕЛЕНА JORDAN PATIENT OPTUM RX PRESCRIPT [facility] Feb 28, 2004 Jul 01, 2026 [facility] [id number] [phone] ЕЛЕНА JORDAN PATIENT OPTUM/SANDRA MARAN [facility] Jun 18, 2015 [facility] [id number] [phone] ЕЛЕНА JORDAN PATIENT Selected [...] activities for the patient from all [place] [facility]. This section includes future appointments and [...] 23, 2025 02:30 PM AMBULATORY - PSYCHIATRY [facility] April 08, 2025 03:00 PM AMBULATORY - PSYCHIATRY [facility] Jun 25, 2025 03:00 PM AMBULATORY - PSYCHIATRY [facility] Jun 29, 2025 02:30 PM AMBULATORY - MEDICINE [facility] Active, Pending, and Scheduled Orders This section [...] Chemistry Order LIPID PANEL FASTING BLOOD (SST-SERUM) [facility] Feb 12, 2025 12:00 AM Laboratory - Chemistry Order BASIC METABOLIC PANEL (non-fasting) BLOOD (SST-SERUM) [facility] Feb 12, 2025 12:00 AM Laboratory - Chemistry Order HEMOGLOBIN A1C PANEL BLOOD (LAV-BLOOD) [facility] Feb 12, 2025 12:00 AM Laboratory - Chemistry Order MICROALBUMIN CREATININE RATIO PANEL URINE (RANDOM) [facility] Social History: Smoking Status (Most current) and [...] 2023 01:00 PM VA-TOBACCO NEVER USED [facility] Tobacco Use History This section includes a history of the smoking, or tobacco-related health factors, that were collected on or before the date of the Encounter. The data comes from the [place] facility where the Encounter took place. Date/Time Smoking Status/Tobacco Use Comment F acabby Jan 04, 2023 03:00 PM VA-TOBACCO NEVER USED [place] [facility] Feb 20, 2021 11:30 AM VA-TOBACCO NEVER USED [facility] Feb 18, 2020 09:39 AM [facility]ACCO [facility] Dec 02, 2018 03:30 PM VA-TOBACCO FORMER USER [facility] Dec 02, 2018 03:30 PM VA-TOBACCO QUIT 15 YRS OR MORE [facility] Feb 28, 2018 02:37 PM QUIT TOBACCO USE > 7 YEARS AGO [facility] Nov 23, 2016 10:49 AM LIFETIME NON-TOBACCO USER [facility] April 10, 2005 09:23 AM LIFETIME NON-SMOKER [facility] April 10, 2005 09:23 AM LIFETIME NON-TOBACCO USER [facility] Advance Directives: All historical and [...] DATE: JAN 18, 2025@19:38:44 AUTHOR: JOSE RAMON AGRRISON COSIGNER: URGENCY: STATUS: COMPLETED V1 PHARMACY CUSTOMER CARE MEDICATION RENEWAL Has ADDENDA Date: Jan Division: [place] Pt referred by Pharmacy Call Center for medication renewal: Non-controlled/maintenan ce medication Medications requested: [id number] LOSARTAN 100MG TAB Defer to primary care provider To be mailed . Please review and renew if appropriate. *This note was generated by [facility] Pharmacy Customer Care. If you have any questions or need assistance, do not contact this author. Please refer all questions to your local, on-site pharmacy departments. /es/ JOSE RAMON GARRISON [facility] Risk Control Representative, [place]/Pharmacy Customer Care Signed: 01/18/2025 19:39 Receipt Acknowledged By: 01/19/2025 12:23 /rajeev/ RUBI MCMILLAN Nurse Practitioner 01/19/2025 08:22 /rajeev/ DENNY MCCLAIN REGISTERED NURSE 01/19/2025 ADDENDUM STATUS: COMPLETED Defer to PCP for renewal of medication as deemed appropraite /rajeev/ DENNY MCCLAIN REGISTERED NURSE Signed: 01/19/2025 08:20 JOSE RAMON GARRISON [place] [facility]L W[facility]
--- OUTSIDE RECORDS SUMMARY | 2025-03-16 15:59 | XMS_ITS | Continuity of Care Document ---
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 It does not include entries that were removed or entered in error. Problem Status Onset Date Problem Type Date of Resolution Comments Source Headache * (ICD-9-CM 784.0) Active 010 Condition [facility] Adjustment disorder with anxious mood (SNOMED CT 81795875) Active Condition [place] Allergic rhinitis Active Condition [facility] Depression (SNOMED CT 47769844) Active Condition Nov 24, 2010 Entered By: [...] CONRADO - Generalized anxiety disorder (SNOMED CT 33201277) Active Condition Mar 12, 2019 Entered By: [...] [facility] Hyperlipidemia (SNOMED CT 46745459) Active Condition [facility] Hypertension (SNOMED CT 13066133) Active Condition [facility] Hysterectomy * (ICD-9-CM 621.8) Active Condition [facility] Hysterectomy * (ICD-9-CM 621.8) Active Condition [...] stable on MRI 01/31, repeat ordered [facility] Laboratory test result abnormal Active Condition Mar 17, 2015 Entered By: ELTON PICKARD Comment: HAI[place] 1: 160 speckled and homogeneous [facility] Obesity (SNOMED CT 696716379) Active Condition [facility] OBSTRUCTIVE SLEEP APNEA Active Condition [facility] Other Specified Aftercare Following Surgery (ICD-9-CM V58.49) Active Condition [facility] Other Specified Preoperative Examination (ICD-9-CM V72.83) Active Condition [facility] Postmenopausal Bleeding Active Condition [facility] Shingles Active Condition [facility] Sleep apnea Active Condition [facility] Somatization Disorder Active Condition [facility] Type 2 diabetes mellitus (SNOMED CT 09474317) Active Condition [facility] Uterine Fibroids Active Condition [facility] Abdominal Pain Inactive Condition 10/28/2010 Jul 09, 2007 Entered By: JOSE DANIEL SHEPARD Comment: egd 05/24 by sreekanth barlow md [phone] negative [facility] Acculturation [...] [facility] Diagnosis: ICD-10-CM 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 [place] Diagnosis: ICD-10-CM Z71.9 Counseling, unspecified Active Diagnosis [facility] Diagnosis: ICD-10-CM Z96.1 Presence of intraocular lens Active Diagnosis [facility] Diagnosis: ICD-10-CM Z23 Encounter for immunization Active Diagnosis [facility] Diagnosis: ICD-10-CM E11.9 Type 2 diabetes mellitus without complications Active Diagnosis [facility] Diagnosis: ICD-10-CM F41.1 Generalized anxiety disorder Active Diagnosis [place] Diagnosis: ICD-10-CM Z13.6 Encounter for screening for cardiovascular disorders Active Diagnosis [facility] Diagnosis: ICD-10-CM H26.8 Other specified cataract Active Diagnosis [facility] Diagnosis: ICD-10-CM Z71.89 Other specified counseling Active Diagnosis [facility] Diagnosis: ICD-10-CM R21 Rash and other nonspecific skin eruption Active Diagnosis [facility] Diagnosis: ICD-10-CM Z13.89 Encounter for screening for other disorder Active Diagnosis [place] Diagnosis: ICD-10-CM Z12.11 Encounter for screening for malignant neoplasm of colon Active Diagnosis [facility] Medications Combined list of outpatient medications from [...] WITH GRAPEFRU IT JUICE ORAL ACTIVE 09/15/2025 [id number] YOVANI ESCALANTEA RADHA 2023 [facility] AMLODIPINE BESYLATE 5MG TAB TAKE ONE TABLET BY MOUTH ONCE DAILY FOR BLOOD PRESSURE /HEART, DO NOT TAKE WITH GRAPEFRU IT JUICE ORAL DISCONT INUED 07/17/2025 [id number] AVA YAHAIRA RADHA 2023 90 [facility] AMLODIPINE BESYLATE 5MG TAB TAKE ONE TABLET BY MOUTH ONCE DAILY FOR BLOOD PRESSURE /HEART, DO NOT TAKE WITH GRAPEFRU IT JUICE ORAL DISCONT INUED 08/12/2024 [id number] SVETLANA WEATHERS JAWED 2022 90 [facility] ASCORBIC ACID 500MG TAB TAKE ONE TABLET BY MOUTH DAILY ORAL ACTIVE MIHAELA PICKARD 2011 [facility] ATENOLOL 100MG TAB TAKE ONE TABLET BY MOUTH AT BEDTIME FOR BLOOD PRESSURE /HEART ORAL ACTIVE 03/04/2026 [id number] 5 AVA, YAHAIRA RADHA 2024 90 [facility] ATENOLOL 100MG TAB TAKE ONE TABLET BY MOUTH AT BEDTIME FOR BLOOD PRESSURE /HEART ORAL DISCONT INUED 02/25/2025 [id number] AVA, YAHAIRA RADHA 2023 90 [facility] ATORVASTATI N CA 40MG TAB TAKE ONE-HALF TABLET BY MOUTH DAILY FOR CHOLESTE ROL ORAL ACTIVE 04/09/2025 [id number] AVA, YAHAIRA RADHA 2023 45 [facility] ATORVASTATI N CA 40MG TAB TAKE ONE-HALF TABLET BY MOUTH DAILY FOR CHOLESTE ROL ORAL DISCONT INUED 04/03/2024 [id number] Nadja COOLEY ICOLE 2022 45 [facility] CETIRIZINE HCL 10MG TAB TAKE ONE TABLET BY MOUTH ONCE DAILY ORAL ACTIVE Nadja COOLEY ICOLE 2018 [facility] CHOLECALCIF ALEX 25MCG (1,000UNIT) TAB TAKE ONE TABLET BY MOUTH ONCE DAILY ORAL ACTIVE Nadja COOLEY ICOLE 2020 [facility] DEXTROMETHO RPHAN HBR 10MG/GUAIFE NESIN 100MG/5ML (SF & AF) SYRUP TAKE 2 TEASPOON FULS BY MOUTH THREE TIMES DAILY NEEDED ORAL ACTIVE AZAEL CASTELLON 2017 [facility] DULOXETINE HCL 20MG CAP,EC TAKE TWO CAPSULES BY MOUTH ONCE DAILY DEPRESSI ON ORAL DISCONT INUED (EDIT) 06/21/2024 [id number] Thaddeus ZHANG 2022 60 [place] DULOXETINE HCL 30MG CAP,EC TAKE ONE CAPSULE BY MOUTH TWICE DAILY DEPRESSI ON ORAL ACTIVE 09/05/2025 [id number] Thaddeus ZHANG 2023 120 [place] DULOXETINE HCL 30MG CAP,EC TAKE ONE CAPSULE BY MOUTH TWICE DAILY ORAL DISCONT INUED (EDIT) 12/24/2024 [id number] Thaddeus ZHANG 2023 60 [place] EMPAGLIFLOZ IN 10MG TAB TAKE ONE TABLET BY MOUTH ONCE DAILY FOR TYPE 2 DIABETES MELLITUS ORAL ACTIVE 04/08/2025 [id number] ANNALISA MARTINEZ 2023 90 [facility] EMPAGLIFLOZ IN 10MG TAB TAKE ONE TABLET BY MOUTH ONCE DAILY FOR TYPE 2 DIABETES MELLITUS TO REPLACE METFORMI N ORAL DISCONT INUED BY PROVIDE R 08/23/2024 [id number] Nadja COOLEY ICOLE 2022 90 [facility] [...] TO PREVENT FLUID/CO NTROL BLOOD PRESSURE ORAL SUSPEND ED 03/04/2026 [id number] AVA YAHAIRA RADHA 2024 90 [facility] HYDROCHLORO THIAZIDE 25MG TAB TAKE ONE TABLET BY MOUTH DAILY TO PREVENT FLUID/CO NTROL BLOOD PRESSURE ORAL DISCONT INUED 04/25/2025 [id number] AVA, YAHAIRA RADHA 2023 90 [facility] HYDROXYZINE HCL 10MG TAB TAKE ONE TABLET BY MOUTH AT BEDTIME NEEDED FOR INSOMNIA ORAL ACTIVE 07/09/2025 [id number] Thaddeus ZHANG 2023 30 [place] HYDROXYZINE HCL 10MG TAB TAKE ONE TABLET BY MOUTH AT BEDTIME NEEDED FOR INSOMNIA ORAL DISCONT INUED (EDIT) 04/09/2025 [id number] AVA, YAHAIRA RADHA 2023 15 [facility] HYDROXYZINE HCL 10MG TAB TAKE ONE TABLET BY MOUTH AT BEDTIME NEEDED FOR INSOMNIA ORAL DISCONT INUED 12/24/2024 [id number] Thaddeus ZHANG G 2023 15 [place] IBUPROFEN 600MG TAB TAKE ONE TABLET BY MOUTH THREE TIMES A DAY NEEDED ORAL ACTIVE ZACK OVIEDO TH M 2016 [facility] [place] POTASSIUM 100MG TAB TAKE ONE TABLET BY MOUTH ONCE DAILY FOR BLOOD PRESSURE /HEART ORAL SUSPEND ED 01/20/2026 [id number] AVA, YAHAIRA RADHA 2024 90 [facility] [place] POTASSIUM 100MG TAB TAKE ONE TABLET BY MOUTH ONCE DAILY FOR BLOOD PRESSURE /HEART ORAL DISCONT INUED 04/09/2025 [id number] 5 AVA, YAHAIRA RADHA 2023 90 [facility] [place] POTASSIUM 100MG TAB TAKE ONE TABLET BY MOUTH ONCE DAILY FOR BLOOD PRESSURE /HEART ORAL DISCONT INUED 04/03/2024 [id number] KIRCHEN,N ICOLE 2022 90 [facility] MELATONIN CAP/TAB TAKE BY MOUTH ORAL ACTIVE Thaddeus ZHANG 2023 [place] MULTIVITAMI N W/MINERAL TAB TAKE BY MOUTH ORAL ACTIVE RANJITHSHIN,LY NN S 2014 [facility] OMEPRAZOLE 20MG CAP,EC TAKE ONE CAPSULE BY MOUTH EVERY MORNING 30 MINUTES BEFORE BREAKFAS T FOR REFLUX ORAL ACTIVE 04/09/2025 [id number] AVA, YAHAIRA RADHA 2023 90 [facility] POLYVINYL ALCOHOL 1.4% SOLN,OPH INSTILL 1 DROP INTO EACH EYE FOUR TIMES A DAY OPHTHA LMIC ACTIVE Octavio ALCANTAR 2021 [facility] SEMAGLUTIDE 0.25MG/0.37 5ML INJ,SOLN,PE N,3ML INJECT 0.5MG SUBCUTAN EOUSLY ONCE A WEEK SUBCUT ANEOUS DISCONT INUED BY PROVIDE R 03/06/2025 [id number] GDANNALISA MCGRATH 2023 1 [facility] SEMAGLUTIDE 0.25MG/0.37 5ML INJ,SOLN,PE N,3ML INJECT 0.25MG SUBCUTAN EOUSLY ONCE A WEEK FOR 4 WEEKS, THEN INJECT 0.5MG ONCE A WEEK FOR 2 WEEKS SUBCUT ANEOUS DISCONT INUED BY PROVIDE R 03/25/2024 [id number] GDANNALISA MCGRATH 2023 1 [facility] SEMAGLUTIDE 1MG/0.75ML INJ,SOLN,PE N,3ML INJECT 1MG SUBCUTAN EOUSLY ONCE A WEEK SUBCUT ANEOUS ACTIVE 04/16/2025 [id number] ANNALISA MARTINEZ 2023 1 [facility] TRIAMCINOLO NE ACETONIDE 0.1% OINT,TOP APPLY SMALL AMOUNT TOPICALL Y TWICE DAILY DIRECTED TOPICA L DISCONT INUED 04/17/2024 [id number] YAHAIRA ESCALANTE 2023 454 [facility] TRIAMCINOLO NE ACETONIDE 0.1% OINT,TOP APPLY SMALL AMOUNT TOPICALL Y TWICE DAILY DIRECTED TOPICA L 05/17/2024 [id number] 4 YAHAIRA ESCALANTE 2023 454 [facility] Allergies, Adverse Reactions, Alerts Combined list of allergies from Department of Defense and Veterans Affairs facilities. It does not include entries that were removed or entered in error. Substance Category Reaction Severity Reaction type Status Date Reported Comments Source ASPIRIN RELATED MEDICATIONS Propensity to adverse reactions to drug (finding) Nausea and vomiting MILD active 4 [facility] DILAUDID Propensity to adverse reactions to drug (finding) Itching, Eruption active 0 [facility] DILAUDID INJECTION 1 MG/ML Propensity to adverse reactions to drug (finding) Nausea and vomiting MODERATE active 9 [facility] MORPHINE Propensity to adverse reactions to drug (finding) Itching SEVERE active 9 [facility] MORPHINE Propensity to adverse reactions to drug (finding) active 0 [facility] OMEPRAZOLE Propensity to adverse reactions to drug (finding) Urticaria active 7 [facility] OMEPRAZOLE Propensity to adverse reactions to drug (finding) active 9 [facility] Immunizations Combined list of available immunizations from the Department of Defense and [place] [facility] Affairs facilities. 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 Comments Source INFLUENZA, SPLIT VIRUS, TRIVALENT, PF 2023 LEVI BETANCUR RIGHT DELTO ID [id number] 140 complet ed [facility] INFLUENZA, INJECTABLE, QUADRIVALENT, PRESERVATIVE FREE 2022 CARLIE KISER RIGHT DELTO ID [id number] 150 complet ed Completed Series, [facility] PNEUMOCOCCAL CONJUGATE PCV20, POLYSACCHARID E FIT428 CONJUGATE, ADJUVANT, PF 2022 CARLIE KISER LEFT DELTO ID [id number] 216 complet ed Completed Series, [facility] INFLUENZA, INJECTABLE, QUADRIVALENT, PRESERVATIVE FREE 2021 SUNITA GERARD LEFT DELTO ID [id number] 150 complet ed [facility] COVID-19 (MODERNA), MRNA, LNP-S, PF, 100 MCG OR 50 MCG DOSE 3 2020 207 complet ed MOD; [id number]; 2 [place] INFLUENZA, UNSPECIFIED FORMULATION 2020 88 complet ed [facility] TD (ADULT), 5 LF TETANUS TOXOID, PRESERVATIVE FREE, ADSORBED 2020 113 complet ed [facility] ZOSTER RECOMBINANT 2 2020 187 complet ed [facility] COVID-19 (MODERNA), MRNA, LNP-S, PF, 100 MCG/0.5 ML DOSE 2 2020 207 complet ed MOD; [id number]; 1 [place] COVID-19 (MODERNA), MRNA, LNP-S, PF, 100 MCG/0.5 ML DOSE 1 2020 207 complet ed MOD; [id number]; 1 [place] INFLUENZA, INJECTABLE, QUADRIVALENT, PRESERVATIVE [...] FLU,3 YRS (HISTORICAL) 2008 88 complet ed [facility] FLU,3 YRS (HISTORICAL) 2008 88 complet [...] Sep 14, 2024 02:24 PM Reporting Lab: [facility] [address] [address] Performing Lab: [facility] [place] [facility] [address] [address] [facility] [facility] MICROALB UMIN CREATINI NE RATIO PANEL MICROALBUM IN/CREATIN INE [MASS RATIO] IN URINE cancmg/g 0 - 29.9 09/14 Specimen Type: URINE No comment entered. Ordering Provider: PUNEET ESCALANTE SA Report Released Date/Time: Sep 14, 2024 02:25 PM Reporting Lab: [facility] [address] [address] Performing Lab: [facility] [address] [address] [facility]ITALRCO[facility]TRN [facility]PITALUSE [facility] MICROALB UMIN CREATINI NE RATIO PANEL MICROALBUM IN [MASS/VOLU ME] IN URINE < 0.5mg/dL 09/14 Specimen Type: URINE No comment entered. Ordering Provider: PUNEET ESCALANTE SA Report Released Date/Time: Sep 14, 2024 02:25 PM Reporting Lab: [facility] [address] [address] Performing Lab: [facility]ITALUSE[facility] [address] [address] [facility]PITALRRANDOLPH MEDICAL CENTERN [facility]ITALUSE [facility] MICROALB UMIN CREATINI NE RATIO PANEL CREATININE [MASS/VOLU ME] IN URINE 27.03 mg/dL 09/14 Specimen Type: URINE No comment entered. Ordering Provider: PUNEET ESCALANTE SA Report Released Date/Time: Sep 14, 2024 02:25 PM Reporting Lab: [facility]ITAL[facility] [address] [address] Performing Lab: [facility]USE[facility] [address] [facility] [address] [facility]PITALRRANDOLPH MEDICAL CENTERN [facility]USE [facility] HEMOGLOB IN A1C PANEL HEMOGLOBIN A1C/HEMOGL [...] Lab: [facility] [address] [facility] [address] Performing Lab: [facility] [address] [address] [facility] [facility] CBC LEUKOCYTES [#/VOLUME] IN BLOOD BY AUTOMATED COUNT 9.47 10*3/uL 4.50 - 11.00 04/21 Specimen Type: BLOOD No comment entered. Ordering Provider: PUNEET ESCALANTE SA Report Released Date/Time: April 17, 2024 01:15 PM Reporting Lab: [facility] [address] [facility] [facility] [address] Performing Lab: [facility] [address] [facility] [address] [facility] [place] [facility] CBC ERYTHROCYT ES [#/VOLUME] IN BLOOD BY AUTOMATED COUNT 4.60 10*6/uL 3.93 - 5.16 04/21 Specimen Type: BLOOD No comment entered. Ordering Provider: PUNEET ESCALANTE SA Report Released Date/Time: April 17, 2024 01:15 PM Reporting Lab: [facility] [address] [facility] [facility] [address] Performing Lab: [facility] [address] [facility] [address] [facility] [place] [facility] CBC HEMOGLOBIN [MASS/VOLU ME] IN BLOOD 13.9 g/dL 12 - 15.2 04/21 Specimen Type: BLOOD No comment entered. Ordering Provider: PUNEET ESCALANTE SA Report Released Date/Time: April 17, 2024 01:15 PM Reporting Lab: [facility] [address] [facility] [facility] [address] Performing Lab: [facility] [place] [address] [facility] [facility] [address] [facility] [place] [facility] CBC HEMATOCRIT [VOLUME FRACTION] OF BLOOD BY AUTOMATED COUNT 42.2 36.6 - 45.6 04/21 Specimen Type: BLOOD No comment entered. Ordering Provider: PUNEET ESCALANTE SA Report Released Date/Time: April 17, 2024 01:15 PM Reporting Lab: [facility] [address] [facility] [facility] [address] Performing Lab: [facility] [place] [facility] [address] [facility] [address] [facility] [place] [facility] CBC MCV [ENTITIC VOLUME] BY AUTOMATED COUNT 91.7 fL 82 - 99 04/21 Specimen Type: BLOOD No comment entered. Ordering Provider: PUNEET ESCALANTE SA Report Released Date/Time: April 17, 2024 01:15 PM Reporting Lab: [facility] [place] [facility] [address] [facility] [facility] [address] Performing Lab: [facility] [place] [facility] [address] [address] [facility] [place] [facility] CBC MCHC [MASS/VOLU ME] BY AUTOMATED COUNT 32.9 g/dL 30.8 - 35.1 04/21 Specimen Type: BLOOD No comment entered. Ordering Provider: PUNEET ESCALANTE SA Report Released Date/Time: April 17, 2024 01:15 PM Reporting Lab: [facility] [place] [facility] [address] [facility] [address] Performing Lab: [facility] [place] [facility] [address] [address] [facility] [place] [facility] CBC PLATELETS [#/VOLUME] IN BLOOD BY AUTOMATED COUNT 244 10*3/uL 140 - 360 04/21 Specimen Type: BLOOD No comment entered. Ordering Provider: PUNEET ESCALANTE SA Report Released Date/Time: April 17, 2024 01:15 PM Reporting Lab: [facility] [place] [facility] [address] [facility] [facility] [address] Performing Lab: [facility] [facility] [address] [address] [facility] [place] [facility] CBC ERYTHROCYT E DISTRIBUTI ON WIDTH [RATIO] BY AUTOMATED COUNT 12.4 12.0 - 16.0 04/21 Specimen Type: BLOOD No comment entered. Ordering Provider: PUNEET ESCALANTE SA Report Released Date/Time: April 17, 2024 01:15 PM Reporting Lab: [facility] [place] [facility] [address] [facility] [address] Performing Lab: [facility] [facility] [address] [address] [facility] [place] [facility] CBC MCH [ENTITIC MASS] BY AUTOMATED COUNT 30.2 pg 26.2 - 32.6 04/21 Specimen Type: BLOOD No comment entered. Ordering Provider: PUNEET ESCALANTE SA Report Released Date/Time: April 17, 2024 01:15 PM Reporting Lab: [facility] [place] [facility] [address] [address] Performing Lab: [facility] [place] [facility] [address] [facility] [address] [facility]N [place] [facility] BASIC METABOLI C PANEL (non-fas ting) UREA NITROGEN [MASS/VOLU ME] IN SERUM OR PLASMA 15 mg/dL 7 - 25 04/21 Specimen Type: SERUM No comment entered. Ordering Provider: PUNEET ESCALANTE SA Report Released Date/Time: April 17, 2024 01:15 PM Reporting Lab: [facility] [place] [facility] [address] [facility] [address] Performing Lab: [facility] [place] [facility] [address] [facility] [address] [facility] [place] [facility] BASIC METABOLI C PANEL (non-fas ting) GLUCOSE [MASS/VOLU ME] IN SERUM OR PLASMA 140 mg/dL 65 - 100 04/21 H Specimen Type: SERUM No comment entered. Ordering Provider: PUNEET ESCALANTE SA Report Released Date/Time: April 17, 2024 01:15 PM Reporting Lab: [facility] [place] [facility] [address] [facility] [address] Performing Lab: [facility] [place] [facility] [address] [facility] [address] [facility] [place] [facility] BASIC METABOLI C PANEL (non-fas ting) SODIUM [MOLES/VOL UME] IN SERUM OR PLASMA 135 mmol/L 135 - 145 04/21 Specimen Type: SERUM No comment entered. Ordering Provider: PUNEET ESCALANTE SA Report Released Date/Time: April 17, 2024 01:15 PM Reporting Lab: [facility] [place] [facility] [address] [facility] [facility] [address] Performing Lab: [facility] [place] [facility] [address] [facility] [address] [facility] [place] [facility] BASIC METABOLI C PANEL (non-fas ting) POTASSIUM [MOLES/VOL UME] IN SERUM OR PLASMA 3.9 mmol/L 3.5 - 5.0 04/21 Specimen Type: SERUM No comment entered. Ordering Provider: PUNEET ESCALANTE SA Report Released Date/Time: April 17, 2024 01:15 PM Reporting Lab: [facility] [place] [facility] [address] [facility] [facility] [address] Performing Lab: [facility] [place] [address] [address] [facility] [place] [facility] BASIC METABOLI C PANEL (non-fas ting) CHLORIDE [MOLES/VOL UME] IN SERUM OR PLASMA 100 mmol/L 100 - 110 04/21 Specimen Type: SERUM No comment entered. Ordering Provider: PUNEET ESCALANTE SA Report Released Date/Time: April 17, 2024 01:15 PM Reporting Lab: [facility] [place] [facility] [address] [facility] [address] Performing Lab: [facility] [place] [address] [address] [facility] [place] [facility] BASIC METABOLI C PANEL (non-fas ting) CARBON DIOXIDE, TOTAL [MOLES/VOL UME] IN SERUM OR PLASMA 26 meq/L 20 - 30 04/21 Specimen Type: SERUM No comment entered. Ordering Provider: PUNEET ESCALANTE SA Report Released Date/Time: April 17, 2024 01:15 PM Reporting Lab: [address] [address] Performing Lab: [address] [address] [facility] BASIC METABOLI C PANEL (non-fas ting) CREATININE [MASS/VOLU ME] IN SERUM OR PLASMA 0.69 mg/dL 0.50 - 1.40 04/21 Specimen Type: SERUM No comment entered. Ordering Provider: PUNEET ESCALANTE SA Report Released Date/Time: April 17, 2024 01:15 PM Reporting Lab: [address] [address] Performing Lab: [address] [address] [facility] BASIC METABOLI C PANEL (non-fas ting) GLOMERULAR FILTRATION RATE/1.73 SQ M.PREDICTE D [VOLUME RATE/AREA] IN SERUM, PLASMA OR BLOOD BY CREATININE -BASED FORMULA (CKD-EPI 2020) >90mL/mi n 60 04/21 Specimen Type: SERUM No comment entered. Ordering Provider: PUNEET ESCALANTE SA Report Released Date/Time: April 17, 2024 01:15 PM Reporting Lab: [address] [address] Performing Lab: [address] [address] [facility] LYME SEROLOGY PANEL BORRELIA BURGDORFER I AB.IGG [...] of the panel were validated at the [facility]. Results are considered [...] Dec 09, 2023 01:48 PM Reporting Lab: [facility] [address] [facility] [address] Performing Lab: [facility] [address] [facility] [address] [facility] LYME SEROLOGY PANEL BORRELIA BURGDORFER I AB [...] of the panel were validated at the [facility] Molecular Diagnostics Laboratory. Results are considered positive [...] Dec 09, 2023 01:48 PM Reporting Lab: [facility] [address] [facility] [address] Performing Lab: [facility] [address] [facility] [address] [facility] ANAPLASM A AND EHRLICHI A AB PANEL [...] performance characteris tics have been determined by [email or web address] [place], [place]. It has not been cleared or [...] performance characteris tics have been determined by [place]. It has not been cleared or approved by the U.S. Food and Drug Administrat ion. This assay has been validated pursuant to the CLIA regulations and is used for clinical purposes. Test Performed by [facility], [employer], [address] [place] [address] Chris Bone M.D., Ph.D., Director of Laboratorie s , CLIA [id number] TEST PERFORMED AT: , Ordering Provider: PUNEET ESCALANTE SA Report Released Date/Time: Dec 09, 2023 01:48 PM Reporting Lab: [facility] [address] [address] Performing Lab: [facility] [address] [address] [facility] ANAPLASM A AND EHRLICHI A AB PANEL [...] performance characteris tics have been determined by [place]. It has not been cleared or [...] performance characteris tics have been determined by [employer] [place], [place]. It has not been cleared or approved by the U.S. Food and Drug Administrat ion. This assay has been validated pursuant to the CLIA regulations and is used for clinical purposes. Test Performed by [facility], [facility], [address] [place] [address] Chris Bone M.D., Ph.D., Director of Laboratorie s , CLIA [id number] TEST PERFORMED AT: , Ordering Provider: PUNEET ESCALANTE SA Report Released Date/Time: Dec 09, 2023 01:48 PM Reporting Lab: [facility] [address] [facility] [address] Performing Lab: [facility] [address] [address] [facility] ANAPLASM A AND EHRLICHI A AB PANEL [...] performance characteris tics have been determined by [place]. It has not been cleared or [...] performance characteris tics have been determined by [place]. It has not been cleared or approved by the U.S. Food and Drug Administrat ion. This assay has been validated pursuant to the CLIA regulations and is used for clinical purposes. Test Performed by [facility], [email or web address] [place], [address] [place], [place] Chris Bone M.D., Ph.D., Director of Laboratorie s , CLIA [id number] TEST PERFORMED AT: , Ordering Provider: PUNEET ESCALANTE SA Report Released Date/Time: Dec 09, 2023 01:48 PM Reporting Lab: [facility] [address] [facility] [address] Performing Lab: [facility] [address] [address] [facility] ANAPLASM A AND EHRLICHI A AB PANEL [...] performance characteris tics have been determined by [employer] [place]. It has not been cleared or [...] performance characteris tics have been determined by [employer] [place]. It has not been cleared or approved by the U.S. Food and Drug Administrat ion. This assay has been validated pursuant to the CLIA regulations and is used for clinical purposes. Test Performed by [facility], [email or web address] [place], [address] [place] [address] Chris Bone M.D., Ph.D., Director of Laboratorie s , CLIA [id number] TEST PERFORMED AT: , Ordering Provider: PUNEET ESCALANTE SA Report Released Date/Time: Dec 09, 2023 01:48 PM Reporting Lab: [facility] [address] [facility] [address] Performing Lab: [facility] [address] [address] [facility] ANAPLASM A AND EHRLICHI A AB PANEL [...] performance characteris tics have been determined by [place]. It has not been cleared or [...] performance characteris tics have been determined by [email or web address] [place]. It has not been cleared or approved by the U.S. Food and Drug Administrat [employer]. This assay has been validated pursuant to the CLIA regulations and is used for clinical purposes. Test Performed by [facility], [email or web address] [place], [address] [place], [place] Chris Bone M.D., Ph.D., Director of Laboratorie s , CLIA [id number] TEST PERFORMED AT: , Ordering Provider: PUNEET ESCALANTE SA Report Released Date/Time: Dec 09, 2023 01:48 PM Reporting Lab: [facility] [address] [facility] [address] Performing Lab: [facility] [address] [address] [facility] ANAPLASM A AND EHRLICHI A AB PANEL [...] performance characteris tics have been determined by [employer] [place]. It has not been cleared or [...] performance characteris tics have been determined by [employer] [place]. It has not been cleared or approved by the U.S. Food and Drug Administrat ion. This assay has been validated pursuant to the CLIA regulations and is used for clinical purposes. Test Performed by [facility], [facility], [address] [place] [address] Chris Bone M.D., Ph.D., Director of Laboratorie s , CLIA [id number] TEST PERFORMED AT: , Ordering Provider: PUNEET ESCALANTE SA Report Released Date/Time: Dec 09, 2023 01:48 PM Reporting Lab: [facility] [address] Performing Lab: [facility] [address] [place] [id number] [facility] VITAMIN D (25-OH) 25-HYDROXY VITAMIN D3 [MASS/VOLU ME] IN SERUM OR PLASMA 52 ng/mL 20 - 50 12/09 H Specimen Type: SERUM No comment entered. Ordering Provider: PUNEET ESCALANTE SA Report Released Date/Time: Dec 09, 2023 01:48 PM Reporting Lab: [facility] [address] [facility] [address] Performing Lab: [facility] [address] [facility] VITAMIN B12 COBALAMIN (VITAMIN B12) [MASS/VOLU ME] IN SERUM OR PLASMA >2000pg/ mL 200 - 900 12/09 H Specimen Type: SERUM No comment entered. Ordering Provider: PUNEET ESCALANTE SA Report Released Date/Time: Dec 09, 2023 01:48 PM Reporting Lab: [facility] [address] Performing Lab: [facility] [address] [facility] [address] [facility] TSH THYROTROPI N [UNITS/VOL UME] IN SERUM OR PLASMA 2.48 u[IU]/mL 0.35 - 5.00 12/09 Specimen Type: SERUM No comment entered. Ordering Provider: PUNEET ESCALANTE SA Report Released Date/Time: Dec 09, 2023 01:48 PM Reporting Lab: [facility] [address] [facility] [address] Performing Lab: [facility] [address] [facility] [address] [facility] Vital Signs Combined list of inpatient and outpatient Vital Signs from Department of Defense and Veterans Affairs, ranging from 12 months to all on record, depending upon the facility. Vital Sign Value Date Comments Source SYSTOLIC BLOOD PRESSURE 117 09/14/20 14:16:41 [facility] DIASTOLIC BLOOD PRESSURE 76 14:16:41 [facility] PULSE [...] 03/18/2024 14:38:41 [facility] Encounters Combined list of: 1) Encounters from Department of Veterans Affairs facilities going backup to the last 18 months, not all VA inpatient encounters are included; 2) Encounters from the Department of [facility] facilities going backup to 280 months. Location Location Details Encounter Type Encounter Number Reason For Visit Attending Provider ADM Date DC Date Status Disposition Source [facility] Outpatient Encounter [id number] 09/24 [facility] Outpatient Encounter [id number] 10/29 [place] [facility] [id number] 11/26 [place] [facility] Outpatient [facility]counter [id number] 12/09 [facility] [place] [place] [facility] OFFICE O/P EST MOD 30 MIN [id number] Diagnos is: ICD-10- CM Z12.11 Encount er for screeni ng for maligna nt neoplas m of colon AVA,L VICTOR M RADHA 12/09 [facility] En[facility] [id number] 12/10 [facility] Encounter [id number] 12/12 [facility] Encounter [id number] 12/16 [facility] OFFICE O/P EST MOD 30 MIN [id number] Diagnos is: ICD-10- CM F41.1 General ized anxiety disorde r ST MARTI ZHANG G 12/24 [place] [facility] MTMS BY PHARM ADDL 15 MIN [id number] Diagnos is: ICD-10- CM E11.9 Type 2 diabete s mellitu s without complic ations GDULA,LIUDMILA A 12/30 [facility] En[facility] [id number] 01/12 [facility] MTMS BY PHARM ADDL 15 MIN [id number] Diagnos is: ICD-10- CM E11.9 Type 2 diabete s mellitu s without complic ations GDULA,LIUDMILA A 01/30 [facility] MTMS BY PHARM EST 15 MIN [id number] Diagnos is: ICD-10- CM E11.9 Type 2 diabete s mellitu s without complic ations GDULA,LIUDMILA A 02/02 [facility] QNHP OL DIG ASSMT&MGMT 5-10 [id number] Diagnos is: ICD-10- CM E11.9 Type 2 diabete s mellitu s without complic ations POPEYE BENSON 02/02 [facility] INTRM OPH EXAM EST PATIENT [id number] Diagnos is: ICD-10- CM E11.9 Type 2 diabete s mellitu s without complic ations DEISY ALCANTAR 02/03 [facility] MTMS BY PHARM ADDL 15 MIN [id number] Diagnos is: ICD-10- CM E11.9 Type 2 diabete s mellitu s without complic ations GDRAMILADICKSONLIUDMILA A 02/13 [facility] Out[facility] Encounter [id number] 02/16 [facility] Out[facility] Encounter [id number] 02/23 [facility] [place] OFFICE O/P EST MOD 30 MIN [id number] Diagnos is: ICD-10- CM F33.8 Other recurre nt depress alli disorde rs ST MARTI ZHANG G 03/03 [place] [facility] MTMS BY PHARM EST 15 MIN [id number] Diagnos is: ICD-10- CM E11.9 Type 2 diabete s mellitu s without complic ations GDDICKSON MCGRATHDI A 03/05 [facility] OFF[facility] O/P EST MOD 30 MIN [id number] Diagnos is: ICD-10- CM E11.9 Type 2 diabete s mellitu s without complic ations Fady ESCALANTE 03/18 [facility] Encounter [id number] 03/31 [facility] Out[facility] Encounter [id number] 04/05 [facility] MTMS BY PHARM EST 15 MIN [id number] Diagnos is: ICD-10- CM E11.9 Type 2 diabete s mellitu s without complic ations GDRAMILA,LIUDMILA A 04/07 [facility] En[facility] [id number] 04/15 [facility] Out[facility] Encounter [id number] 04/15 [facility] MTMS BY PHARM EST 15 MIN [id number] Diagnos is: ICD-10- CM E11.9 Type 2 diabete s mellitu s without complic ations LIUDMILA MARTINEZ A 04/15 [facility] [place] UNLISTED SPEC DERM SVC/PX [id number] Diagnos is: ICD-10- CM Z13.89 Encount er for screeni ng for other disorde r Kale SHELTON 04/16 [facility] Outpatient Encounter [id number] Diagnos is: ICD-10- CM R21 Rash and other nonspec ific skin eruptio SAAD Aburto PH J 04/17 [facility] En[facility] [id number] 04/17 [facility] Encounter [id number] 04/17 [facility] Out[facility] Encounter [id number] 04/17 [facility] HC PRO PHONE CALL 5-10 MIN [id number] Diagnos is: ICD-10- CM 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 PAUL BETANCUR 04/17 [facility] OFF/OP EST MAY X REQ PHY/QHP [id number] Diagnos is: ICD-10- CM H26.8 Other specifi ed catarac t PAUL BETANCUR 04/21 [facility] ELECTROCAR DIOGRAM REPORT [id number] Diagnos is: ICD-10- CM Z13.6 Encount er for screeni ng for cardiov ascular disorde YASMIN Zarco 04/21 [facility] Out[facility] Encounter [id number] 04/23 [facility] Encounter [id number] 04/27 [facility] Encounter [id number] 04/27 [facility] [place] [facility] [place] OFFICE O/P EST MOD 30 MIN [id number] Diagnos is: ICD-10- CM F41.1 General ized anxiety disorde r ST MARTI ZHANG 04/28 [facility] [place] [facility] MTMS BY PHARM EST 15 MIN [id number] Diagnos is: ICD-10- CM E11.9 Type 2 diabete s mellitu s without complic ations GDULA,LIUDMILA A 05/05 [facility] [place] [place] OFFICE O/P EST MOD 30 MIN [id number] Diagnos is: ICD-10- CM F41.1 General ized anxiety disorde r ST MARTI ZHANG G 06/02 [facility] [place] [facility] MTMS BY PHARM EST 15 MIN [id number] Diagnos is: ICD-10- CM E11.9 Type 2 diabete s mellitu s without complic ations GDULA,LIUDMILA A 06/04 [facility] [place] [facility] Outpatient Encounter [id number] 06/05 [facility] [place] [facility] [facility] OFFICE O/P EST MOD 30 MIN [id number] Diagnos is: ICD-10- CM F33.8 Other recurre nt depress alli disorde rs ST MARTI ZHANG G 07/08 [facility] En[facility] [id number] 07/10 [facility] Encounter [id number] 07/15 [facility] Outpatient Encounter [id number] 08/19 [facility] [place] [facility] Outpatient Encounter [id number] [facility] OFFICE O/P EST MOD 30 MIN [id number] Diagnos is: ICD-10- CM F33.8 Other recurre nt depress alli disorde rs ST MARTI ZHANG G 09/04 [place] [facility] Outpatient Encounter [id number] 09/07 [place] [facility] Outpatient Encounter [id number] 09/11 [facility] [place] [facility] Outpatient [facility]counter [id number] 1[facility]09/14 [facility] [place] [facility] Outpatient [facility]counter [id number] [facility] [place] [facility] OFFICE O/P EST LOW 20 MIN [id number] Diagnos is: ICD-10- CM Z23 Encount er for immuniz ation AVAL VICTOR M RADHA 09/14 [facility] [place] [facility] Outpatient Encounter [id number] [facility] [place] [facility] INTRM OPH EXAM EST PATIENT [id number] Diagnos is: ICD-10- CM Z96.1 Presenc e of intraoc ular lens ORTIZ,PR JEREMI 09/15 [facility] [place] [facility] Outpatient Encounter [id number] 09/16 [facility] Outpatient Encounter [id number] 1.09/24 /2024 [facility] Encounter [id number] 11/12 [facility] Out[facility] Encounter [id number] 11/12 [facility] Out[facility] Encounter [id number] [facility] Out[facility] Encounter [id number] [facility] Out[facility] Encounter [id number] 12/14 [facility] Out[facility] Encounter [id number] [facility] PH1 ASSMT&MGMT NQHP 21-30 [id number] Diagnos is: ICD-10- CM 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, 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 BRYNN, DONI 12/14 [facility] En[facility] [id number] 12[facility]16 [facility] Out[facility] Encounter [id number] 12/25 [facility] Out[facility] Encounter [id number] 12/31 [facility] Encounter [id number] 12/31 [facility] PH1 ASSMT&MGMT NQHP 5-10 [id number] Diagnos is: ICD-10- CM 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, 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 SWAIN, DONI 12/31 [facility] Out[facility] Encounter [id number] 01/08 [facility] Out[facility] Encounter [id number] 01/14 [facility] Out[facility] Encounter [id number] 01/16 [facility] Out[facility] Encounter [id number] 01/18 [facility] Out[facility] Encounter [id number] 01/25 [facility] Out[facility] Encounter [id number] 01/27 [facility] Out[facility] Encounter [id number] 02/02 [facility] Out[facility] Encounter [id number] 02/03 [facility] Out[facility] Encounter [id number] 02/05 [place] [facility] [place] OFF[place] O/P EST MOD 30 MIN [id number] Diagnos is: ICD-10- CM F33.8 Other recurre nt depress alli disorde rs ST MARTI ZHANG G 02/23 [facility] [place] [facility] Outpatient Encounter [id number] 03/01 [place] [facility] Social History Combined list of available smoking, tobacco, and other social history from Department of Defense and Veterans Affairs facilities. Social History Type Response Date Comment Sour e Tobacco smoking status NHIS [facility]-TOBACCO NEVER USED 12/09/2023 [place] [facility] [place] [facility] [place] [facility] [place] [facility] History of tobacco use MO-TOBACCO NEVER USED 01/24/2022 [facility] History of tobacco use MO-TOBACCO NEVER USED 02/20/2021 [place] [facility] [place] [facility] History of tobacco use MO-TOBACCO NEVER USED 02/18/2020 [place] [facility] [place] [facility] of [facility] 12/02/2018 [place] [facility] [place] [facility] History of tobacco use QUIT TOBACCO USE > 7 YEARS AGO 02/28/2018 [facility] [place] [facility] History of tobacco use LIFETIME NON-TOBACCO USER 11/23/2016 [facility] [place] [facility] History of tobacco use LIFETIME NON-TOBACCO USER 11/29/2015 [place] History of tobacco use LIFETIME NON-SMOKER 04/10/2005 [place] [facility] Plan of Care List of future care activities from [facility] facilities. Additional future care activities may be listed in the Assessment and Plan section. Date/Time Care Activity Care Activity Detail Facili ty 04/08/2025 AMBULATORY - PSYCHIATRY AMBULATORY - PSYC [facility] Advance Directives List of completed, amended, or rescinded Advance Directives on record at [facility] facilities. An actual copy of the Directive is not included. Date Advance Directive Provider Source 09/08/2009 ADVANCE DIRECTIVE CHOLO CONRAD [facility]
--- OUTSIDE RECORDS SUMMARY | 2025-03-16 15:59 | XMS_ITS | Encounter Summary ---
Author Name Department of Vetera Affairs ([place]) Organization Department of Vetera [place] ([place]) Address [address] [place] [address] Care Team Providers Care Lands Resource Manager Name Role Phone YAHAIRA ESCALANTE Primary [...] Bueno's Name Patient's Relationship to Policy Bueno [facility] Feb 28, 2004 Jul 01, 2026 [facility] [id number] ЕЛЕНА JORDAN PATIENT W/OME DICAR E Feb 28, 2004 Jul 01, 2026 [facility] [id number] ЕЛЕНА JORDAN PATIENT [facility] Feb 28, 2004 Jul 01, 2026 [id number] KIKO JORDAN JR SPOUSE [facility] Feb 28, 2004 Jul 01, 2026 [id number] ЕЛЕНА JORDAN PATIENT [facility] Feb 28, 2004 Jul 01, 2026 [id number] [phone] ЕЛЕНА JORDAN PATIENT [facility] Feb 28, 2004 Jul 01, 2026 [id number] [phone] ЕЛЕНА JORDAN PATIENT [facility] Jun 18, 2015 Jul 01, 2026 [facility] [id number] [phone] ЕЛЕНА JORDAN PATIENT [facility] Jan 19, 2013 Jul 01, 2026 [facility] [id number] [phone] ЕЛЕНА JORDAN PATIENT [facility] Sep 22, 2012 Jul 01, 2026 [facility] [id number] ЕЛЕНА JORDAN PATIENT [facility] Sep 22, 2012 Jul 01, 2026 [facility] [id number] ЕЛЕНА JORDAN PATIENT [facility] Sep 22, 2012 Jul 01, 2026 [facility] [id number] KIKO JORDAN JR SPOUSE [facility] PRESCRIPT [facility] Feb 28, 2004 Jul 01, 2026 [facility] [id number] [phone] ЕЛЕНА JORDAN PATIENT OPT[facility]/SANDRA MARAN [facility] Jun 18, 2015 [facility] [id number] [phone] ЕЛЕНА JORDAN PATIENT Selected Encounter This section includes the information on record at MD for the Encounter. Date/Time Encounter Type Encounter Description Reason Pro vider Source Dec 31, 2024 11:10 AM Outpatient Encounter ADMIN PAT ACTIVTIES (MASNONCT) E Encounter Template Text not used by MD Plan of Treatment: Future Appointments (+ 6 months) and Future Tests (+/- 45 days) The Plan of Treatment section includes future care activities for the patient from all [facility]. This section includes future appointments and future orders which are active, pending or scheduled. Future Appointments This section includes appointments that were scheduled to occur 6 months from the date of the Encounter, up to a maximum of 20 appointments. The data comes from all [facility] facilities. Appointment Date/Time Appointment Type Appointme nt Facility Name Feb 23, 2025 02:30 PM AMBULATORY - PSYCHIATRY [facility] April 08, 2025 03:00 PM AMBULATORY - PSYCHIATRY [facility] Jun 25, 2025 03:00 PM AMBULATORY - PSYCHIATRY [facility] Jun 29, 2025 02:30 PM AMBULATORY - MEDICINE [facility] Active, Pending, and Scheduled Orders This section includes a listing of several types of active, pending, and scheduled orders, including clinic medications orders, diagnostic test orders, procedure orders and consult orders; where the start date of the order is 45 days before the date of the Encounter or 45 days after the date of theEncounter. The data comes from all [facility] facilities. Test Date/Time Test Type Test Details Facility Name Feb 12, 2025 12:00 AM Laboratory - Chemistry Order LIPID PANEL FASTING BLOOD (SST-SERUM) [facility] Feb 12, 2025 12:00 AM Laboratory - Chemistry Order BASIC METABOLIC PANEL (non-fasting) BLOOD (SST-SERUM) [facility] Feb 12, 2025 12:00 AM Laboratory - Chemistry Order HEMOGLOBIN A1C PANEL BLOOD (LAV-BLOOD) [facility] Feb 12, 2025 12:00 AM Laboratory - Chemistry Order MICROALBUMIN CREATININE RATIO PANEL URINE (RANDOM) [facility] Social History: Smoking Status (Most current) and Tobacco Use (All prior to encounter date) This section includes the most current, and the historical, smoking and tobacco- related health factors from the MD facility where the Encounter took place. Current Smoking Status This section includes the most current smoking, or tobacco-related health factor, from the MD facility where the Encounter took place. Date/Time Current Smoking Status Comment Bell romero Dec 09, 2023 01:00 PM VA-TOBACCO NEVER USED [facility] [place] [facility] Tobacco Use History This section includes a history of the smoking, or tobacco-related health factors, that were collected on or before the date of the Encounter. The data comes from the MD facility where the Encounter took place. Date/Time Smoking Status/Tobacco Use Comment F acabby Jan 04, 2023 03:00 PM VA-TOBACCO NEVER USED [place] [facility] Feb 20, 2021 11:30 AM VA-TOBACCO NEVER USED [facility] Feb 18, 2020 09:39 AM [facility]AC[facility] Dec 02, 2018 03:30 PM VA-TOBACCO FORMER USER [facility] WSN [facility] Dec 02, 2018 03:30 PM VA-TOBACCO QUIT 15 YRS OR MORE [facility] Feb 28, 2018 02:37 PM QUIT TOBACCO USE > [address] [facility] Nov 23, 2016 10:49 AM LIFETIME NON-TOBACCO USER [facility] April 10, 2005 09:[address] NON-SMOKER [facility] April 10, 2005 09:23 AM LIFETIME NON-TOBACCO [facility] Advance Directives: All historical and current Section Date Range: From patient's date of to the date document was created. This section includes ALL of a patient's completed or amended MD Advance and Rescinded Directives. The entries below indicate that a directive exists for the patient, but an actual copy is not included with this document. The data comes from all MD facilities. Date Advance Directives Provider Source Sep 08, 2009 ADVANCE DIRECTIVE CHOLO CONRAD [facility] Encounter Notes: All associated encounter notes This section contains the clinical notes associated to the Encounter. Date/Time Encounter Note(s) Provider Source Dec 31, 2024 11:10 AM [employer] HEALTH NOTE : LOCAL TITLE: WOMEN VETERANS PROGRAM/INCIDENTAL NOTE STANDARD TITLE: WOMENS HEALTH NOTE DATE OF NOTE: DEC 31, 2024@11:10 ENTRY DATE: DEC 31, 2024@11:10:47 AUTHOR: TORSTEN KIRAN EXP COSIGNER: URGENCY: STATUS: COMPLETED On 12/30/24 I spoke to PCP who asked me to see if I could find a provider that accepts for to receive surgery and oncology services for breast cancer. I sent an email to [facility] call center asking for a list of providers that accept [facility] since the call center line wait was 2 1/2 hour wait. I recieved a call from a MD employee that [facility] forwarded my email too, he (Rayshawn Barber) works with spina bifida patients that have insurance and he reports that the MD Spina Difida program cold calls providers and asks if they accept [facility] or are willing to become contracted with [facility] to care for the veterans family members. He will forward my email to the correct department. Plan: Await response from [facility]. SW has reached out to the [place] to see if she will sign up for [facility]. I will add SW to see if the patient was willing to complete [facility] application. /es/ TORSTEN KIRAN RN MSN REGISTERED NURSE Signed: 12/31/2024 11:36 Receipt Acknowledged By: 12/31/2024 14:37 /es/ RUBI MCMILLAN Nurse Practitioner 12/31/2024 13:09 /es/ Kathie lE RN Primary Care Staff Nurse 12/31/2024 12:17 /es/ MATEUSZ LONG LICENSED INDEPENDENT CLINICAL MACHINE SET UP OPERATOR 12/31/2024 14:13 /es/ Janay Carver, RN, BSN Women's Healthcare Navigator, RN TORSTEN KIRAN [place] CNTRL W[facility]
--- OUTSIDE RECORDS SUMMARY | 2025-03-16 15:59 | XMS_ITS | Encounter Summary ---
Author Name Department of [place] Organization [place] Address [address] [place] [address] Care Team Providers Care Penology Professor Name Role Phone YAHAIRA ESCALANTE Primary Care [...] Name Patient's Relationship to Policy Bueno [facility] Feb 28, 2004 Jul 01, 2026 [facility] [id number] ЕЛЕНА JORDAN PATIENT W/OME DICAR E Feb 28, 2004 Jul 01, 2026 [facility] [id number] ЕЛЕНА JORDAN PATIENT [facility] Feb 28, 2004 Jul 01, 2026 [id number] KIKO JORDAN JR SPOUSE [facility] Feb 28, 2004 Jul 01, 2026 [id number] ЕЛЕНА JORDAN PATIENT [facility] Feb 28, 2004 Jul 01, 2026 [id number] ЕЛЕНА JORDAN PATIENT [facility] Feb 28, 2004 Jul 01, 2026 [facility] [id number] [phone] ЕЛЕНА JORDAN PATIENT [facility] Jun 18, 2015 Jul 01, 2026 [facility] [id number] [phone] ЕЛЕНА JORDAN PATIENT [facility] Jan 19, 2013 Jul 01, 2026 [facility] [id number] [phone] 7 ЕЛЕНА JORDAN PATIENT [facility] RX [facility] Sep 22, 2012 Jul 01, 2026 [facility] [id number] ЕЛЕНА JORDAN PATIENT [facility] Sep 22, 2012 Jul 01, 2026 [facility] [id number] KIKO JORDAN JR SPOUSE [facility] Sep 22, 2012 Jul 01, 2026 [facility] [id number] ЕЛЕНА JORDAN PATIENT [facility] RX PRESCRIPT [facility] Feb 28, 2004 Jul 01, 2026 [facility] [id number] [phone] ЕЛЕНА JORDAN PATIENT [facility]/SANDRA MARAN [facility] Jun 18, 2015 [facility] [id number] ЕЛЕНА JORDAN PATIENT Selected Encounter This section includes the information on record at DC for the Encounter. Date/Time Encounter Type Encounter Description Reason Pro vider Source Mar 01, 2025 07:42 PM Outpatient Encounter ADMIN PAT ACTIVTIES (MASNONCT) [facility] Encounter Template Text not used by DC Plan of Treatment: Future Appointments (+ 6 months) and Future Tests (+/- 45 days) The Plan of Treatment section includes future care activities for the patient from all [place] treatmentfapeoples hospital. This section includes future appointments and future orders which are active, pending or scheduled. Future Appointments This section includes appointments that were scheduled to occur 6 months from the date of the Encounter, up to a maximum of 20 appointments. The data comes from all [facility]. Appointment Date/Time Appointment Type Appointme nt Facility Name April 08, 2025 03:00 PM AMBULATORY - PSYCHIATRY [facility] Jun 25, 2025 03:00 PM AMBULATORY - PSYCHIATRY [facility] Jun 29, 2025 02:30 PM AMBULATORY - MEDICINE [facility] Active, Pending, and Scheduled Orders This section includes a listing of several types of active, pending, and scheduled orders, including clinic medications orders, diagnostic test orders, procedure orders and consult orders; where the start date of the order is 45 days before the date of the Encounter or 45 days after the date of theEncounter. The data comes from all [facility] facilities. Test Date/Time Test Type Test Details Facility Name Feb 12, 2025 12:00 AM Laboratory - Chemistry Order LIPID PANEL FASTING BLOOD (SST-SERUM) [facility] Feb 12, 2025 12:00 AM Laboratory - Chemistry Order BASIC METABOLIC PANEL (non-fasting) BLOOD (SST-SERUM) [facility] Feb 12, 2025 12:00 AM Laboratory - Chemistry Order HEMOGLOBIN A1C PANEL BLOOD (LAV-BLOOD) [facility] Feb 12, 2025 12:00 AM Laboratory - Chemistry Order MICROALBUMIN CREATININE RATIO PANEL URINE (RANDOM) [facility] Social History: Smoking Status (Most current) [...] 09, 2023 01:00 PM VA-TOBACCO [facility] Tobacco Use History This section includes a history of the smoking, or tobacco-related health factors, that were collected on or before the date of the Encounter. The data comes from the [place] facility where the Encounter took place. Date/Time Smoking Status/Tobacco Use Comment Chung acabby Jan 04, 2023 03:00 PM VA-TOBACCO NEVER USED [place] [facility] Feb 20, 2021 11:30 AM VA-TOBACCO NEVER USED [facility] Feb 18, 2020 09:39 AM [facility]AC[facility] Dec 02, 2018 03:30 PM [facility]BACCO [facility] Dec 02, 2018 03:30 PM VA-TOBACCO QUIT 15 YRS OR MORE [facility] Feb 28, 2018 02:37 PM QUIT TOBACCO USE > 7 YEARS AGO [facility] Nov 23, 2016 10:49 AM LIFETIME NON-TOBACCO [facility] April 10, 2005 09:23 AM LIFETIME NON-SMOKER [facility] April 10, 2005 09:23 AM LIFETIME NON-TOBACCO USER [facility] Advance Directives: All historical and current [...] 08, 2009 ADVANCE DIRECTIVE ANATOLY CONRADNadja Thaddeus [facility] Encounter Notes: All associated encounter notes This section contains the clinical notes associated to the Encounter. Date/Time Encounter Note(s) Provider Source Mar 01, 2025 07:42 PM PHARMACY NOTE: LOCAL TITLE: PHARMACY CUSTOMER CARE MEDICATION RENEWAL STANDARD TITLE: PHARMACY NOTE DATE OF NOTE: MAR 01, 2025@19:42 ENTRY DATE: MAR 01, 2025@19:42:49 AUTHOR: MECCA GAITAN EXP COSIGNER: URGENCY: STATUS: COMPLETED Date: Feb Division: [place] Pt referred by Pharmacy Call Center for medication renewal: Non-controlled/maintenance medication Medications requested: [id number] ATENOLOL 100MG TAB Defer to primary care provider To be mailed . Please review and renew if appropriate. *This note was generated by [facility]/[place] Pharmacy Customer Care. If you have any questions or need assistance, do not contact this author. Please refer all questions to your local, on-site pharmacy departments. /rajeev/ MECCA GAITAN CPhT [employer], [place]/Pharmacy Customer Care Signed: 03/01/2025 19:43 Receipt Acknowledged By: 03/03/2025 07:42 /es/ RUBI MCMILLAN Nurse Practitioner 03/07/2025 18:05 /es/ DENNY MCCLAIN REGISTERED NURSE MECCA GAITAN CN[facility]L [facility]
--- OUTSIDE RECORDS SUMMARY | 2025-03-16 15:59 | XMS_ITS | Encounter Summary ---
Author Name [facility] of Vetera Affairs ([place]) Organization [facility] ([place]) Address [address] [place] [address] Care Team Providers Care Water/Wastewater Engineer Name Role Phone YAHAIRA ESCALANTE Primary Care [...] Bueno's Name Patient's Relationship to Policy Bueno [facility] Feb 28, 2004 Jul 01, 2026 [facility] [id number] ANGELY NOLASCO PATIENT W/OME DICAR E Feb 28, 2004 Jul 01, 2026 [facility] [id number] [phone] ANGELY NOLASCO PATIENT [facility] Feb 28, 2004 Jul 01, 2026 [id number] KIKO NOLASCO JR SPOUSE [facility] Feb 28, 2004 Jul 01, 2026 [id number] ANGELY NOLASCO PATIENT [facility] Feb 28, 2004 Jul 01, 2026 [id number] [phone] ANGELY NOLASCO PATIENT [facility] Feb 28, 2004 Jul 01, 2026 [facility] [id number] ANGELY NOLASCO PATIENT [facility] Jun 18, 2015 Jul 01, 2026 [facility] [id number] [phone] ANGELY NOLASCO PATIENT [facility] Jan 19, 2013 Jul 01, 2026 [facility] [id number] 88 ANGELY NOLASCO PATIENT OPTUM RX [facility] Sep 22, 2012 Jul 01, 2026 [facility] [id number] KIKO NOLASCO JR SPOUSE [facility] RX [facility] Sep 22, 2012 Jul 01, 2026 [facility] [id number] ANGELY NOLASCO PATIENT OPT[facility] RX [facility] Sep 22, 2012 Jul 01, 2026 [facility] [id number] ANGELY NOLASCO PATIENT OPTUM RX [facility] Feb 28, 2004 Jul 01, 2026 [facility] [id number] [phone] ANGELY NOLASCO PATIENT OPTUM/SANDRA MARAN [facility] Jun 18, 2015 [facility] [id number] ANGELY NOLASCO PATIENT Selected Encounter This section includes the information on record at ID for the Encounter. Date/Time Encounter Type Encounter Description Reason Provider Source Sep 14, 2024 02:00 PM OFFICE O/P EST LOW 20 MIN PRIMARY CARE/MEDICINE ICD-10-CM Z23 Encounter for immunization YAHAIRA ESCALANTE [facility] Encounter Template Text not used by ID Assessments - Encounter Diagnoses This section includes the primary and secondary diagnoses documented for the Encounter. Date/Time Primary/Secondary Diagnosis Diagnosis Name Provider Source Sep 14, 2024 02:36 PM PRIMARY Encounter for immunization YAHAIRA ESCALANTE ID CNT [facility] [place] [facility] Sep 14, 2024 02:36 PM SECONDARY Benign neoplasm of meninges, unspecified AVAYAHAIRA FUNG ID CNTR [facility] [place] [facility] Sep 14, 2024 02:36 PM SECONDARY Essential (primary) hypertension AVA,YAHAIRA RADHA [facility] Sep 14, 2024 02:36 PM SECONDARY Type 2 diabetes mellitus without complications YAHAIRA ESCALANTE [facility] Plan of Treatment: Future Appointments (+ 6 months) and Future Tests (+/- 45 days) The Plan of Treatment section includes future care activities for the patient from all [facility]. This section includes future appointments and future orders which are active, pending or scheduled. Future Appointments This section includes appointments that were scheduled to occur 6 months from the date of the Encounter, up to a maximum of 20 appointments. The data comes from all ID treatment facilities. Appointment Date/Time Appointment Type Appointme nt Facility Name Sep 15, 2024 11:30 AM AMBULATORY - MEDICINE [facility] Feb 23, 2025 02:30 PM AMBULATORY - PSYCHIATRY [facility] Active, Pending, and Scheduled Orders This section includes a listing of several types of active, pending, and scheduled orders, including clinic medications orders, diagnostic test orders, procedure orders and consult orders; where the start date of the order is 45 days before the date of the Encounter or 45 days after the date of theEncounter. The data comes from all ID treatment facilities. Test Date/Time Test Type Test Details Facility Name Sep 14, 2024 02:23 PM Consult Order ENDOCRINE/ NHM OUTPT Cons Cad Draftsman's Choice [facility] Lab Results: +/- 30 days of the encounter This section includes the Chemistry and Hematology Lab Results on record with ID for the patient. Radiology Reports and Pathology Reports are provided separately, in subsequent sections. Lab Results This section contains the Chemistry/Hematology Results that were resulted 30 days before or 30 daysafter the date of the Encounter. Date/Time Source Result Type Result - Unit Interpretation Reference Range Specimen Type Comment Sep 14, 2024 02:48 PM [facility] HEMOGLOBIN A1C PANEL BLOOD Specimen Type: [...] Sep 14, 2024 02:24 PM Reporting Lab: [address] [address] Performing Lab: [address] [address] HEMOGLOBIN A1C 8.1 H 4.0-5.6 Sep 14, 2024 02:48 PM [facility] MICROALBUMIN CREATININE RATIO PANEL URINE Spe cimen Type: URINE No comment entered. Ordering Provider: YAHAIRA ESCALANTE Report Released Date/Time: Sep 14, 2024 02:25 PM Reporting Lab: [address] [address] Performing Lab: [address] [address] MICROALBUMIN/CREATININE RATIO canc mg/g 0-29.9 MICROALBUMIN,QUANTITATIVE < [...] 81 117/76 14 96 0 164.7 31 [facility] Immunizations: All administered on the encounter date This section contains immunizations associated to the Encounter. Immunization Series Date Issued Administered By Site Reaction Lot Number CVX Code Drug Research Investigator Comment(s) Source INFLUENZA, SPLIT VIRUS, TRIVALENT, PF Sep 14, 2024 SOCORRO GRANT RIGHT DELTO ID [id number] EARLSymbios ATM VentureKLCarola Webster AT ID, [facility] Social History: Smoking Status (Most current) and Tobacco Use (All prior to encounter date) This section includes the most current, and the historical, smoking and tobacco- related health factors from the ID facility where the Encounter took place. Current Smoking Status This section includes the most current smoking, or tobacco-related health factor, from the ID facility where the Encounter took place. Date/Time Current Smoking Status Comment Bell romero Dec 09, 2023 01:00 PM [facility] Tobacco Use History This section includes a history of the smoking, or tobacco-related health factors, that were collected on or before the date of the Encounter. The data comes from the ID facility where the Encounter took place. Date/Time Smoking Status/Tobacco Use Comment [facility] Jan 04, 2023 03:00 PM [facility] Feb 20, 2021 11:30 AM [facility] Feb 18, 2020 09:39 AM [facility] Dec 02, 2018 03:30 PM VA-TOBACCO FORMER USER [facility] WSN [facility] Dec 02, 2018 03:30 PM VA-TOBACCO QUIT 15 YRS OR MORE [facility] WSN [facility] Feb 28, 2018 02:37 PM QUIT TOBACCO USE > 7 YEARS AGO [facility] Nov 23, 2016 10:49 AM LIFETIME NON-TOBACCO USER ID [facility]TR [facility] April 10, 2005 09:23 AM LIFETIME [facility]-SMOKER [facility] April 10, 2005 09:23 AM LIFETIME [facility]-TOBACCO [facility]ER [facility] Advance Directives: All historical and current Section Date Range: From patient's date of to the date document was created. This section includes ALL of a patient's completed or amended ID Advance and Rescinded Directives. The entries below indicate that a directive exists for the patient, but an actual copy is not included with this document. The data comes from all ID facilities. Date Advance Directives Provider Source Sep 08, 2009 ADVANCE DIRECTIVE CHOLO CONRAD [facility] Encounter Notes: All associated encounter notes This section contains the clinical notes associated to the Encounter. Date/Time Encounter Note(s) Provider Source Sep 15, 2024 05:54 PM LETTERS: LOCAL TITLE: PATIENT LETTER (B) STANDARD TITLE: LETTERS DATE OF NOTE: SEP 15, 2024@17:54 ENTRY DATE: SEP 15, 2024@17:54:31 AUTHOR: YAHAIRA ESCALANTE EXP COSIGNER: URGENCY: STATUS: COMPLETED [facility] Toll Free Number Telephone Assistance can be reached at extension [phone] [address]OL[address]CO [address] [place], [place], [address] SEP 15, 2024 Dear Mrs. Nolasco, Below [...] of upcoming appointments you have scheduled at [facility]: 01/08/2025 14:30 CWM/SO/MHC/ZHANG 07/01/2025 13:00 NHM/OPTOMETRY/ORTIZ 09/20/2025 13:30 CWM/NO/PACT 5 If you have any questions please let me know otherwise see you at your next scheduled visit. Sincerely, RUBI Irvin Family Nurse Practitioner Women's Health & PACT 5 Primary Care [facility] [address] [address] [place] [address] [phone] [place] [address] [address] [place] [address] [phone] YAHAIRA ESCALANTE [facility] Sep 14, 2024 02:18 PM PREVENTIVE MEDICINE NURSING NOTE: LOCAL TITLE: CLINICAL REMINDERS/NURSING STANDARD TITLE: PREVENTIVE MEDICINE NURSING NOTE DATE OF NOTE: SEP 14, 2024@14:18 ENTRY DATE: SEP 14, 2024@14:18:43 AUTHOR: SOCORRO GRANT EXP COSIGNER: URGENCY: STATUS: COMPLETED Influenza Immunization: Influenza, Trivalent, Preservative Free (Fluarix-Syringe) Administered: INFLUENZA, SPLIT VIRUS, TRIVALENT, PF Date Administered: Sep 14, 2024 14:00 Research Investigator: Up[employer] Lot: [id number] Exp Date: May 17, 2025 [facility]: [id number] Admin Route/Site: INTRAMUSCULAR/RIGHT DELTOID Dosage: 0.5mL Vaccine Information Statement(s): INFLUENZA(FLU) VACC(INACTIVATED OR RECOMBINANT)VIS Jun 23, 2021 (AMHARIC) Order By: Policy Administered By: Socorro Grant [...] TEAM NURSE Signed: 09/14/2024 14:21 SOCORRO GRANT CNT [facility] Sep 14, 2024 02:09 PM PRIMARY [...] medical problems as noted below. Angely is [facility] and knows that she will need to [...] dietary changes She can no longer see [facility] patients so I will refer her to Endocrine Meningioma MRI ordered through [place] she has appt on oct 28 Colorectal CA screening Fit card positive a few years ago never went. She is [facility] and per CC team not covered for CC referral but I have written RX and she [facility] has ongoing painful varicose veins at [facility], does not feel better when using compression stockings. Interested in surgical intervention she had referral but never went would like repeated Has appt with mammogram at [facility] used . PMH: Active problems - Computerized Problem List is the source for the followin. Gastroesophageal reflux disease 2. Allergic rhinitis 3. Fibromyalgia 4. Laboratory test result abnormal [place] 1: 160 speckled and homogeneous 5. Shingles 6. Intracranial meningioma 12/16/14 6mm and 3mm - repeat MRI 1 year stable on MRI 01/31, repeat ordered for [facility] 7. Sleep apnea 8. Adjustment disorder with anxious mood (SNOMED CT 60054634) 9. Hydradenitis * 10. Type 2 diabetes mellitus (SNOMED CT 97095068) 11. Insomnia * 12. Hysterectomy * 13. Dizziness * 14. Somatization Disorder 15. Obesity (SNOMED CT 187610548) 16. Headache * 17. Hypertension (SNOMED CT 84678593) 18. Hyperlipidemia (SNOMED CT 80155519) 19. CONRADO - Generalized anxiety disorder (SNOMED CT 94562050) reviewed reviewed reviewed reviewed Reviewed 20. Depression (SNOMED CT 69932520) denies recetn depression reviewed reviewed reviewed reviewed [...] dietary changes She can no longer see [facility] patients so I will refer her to Endocrine #Meningioma MRI ordered through [place] she has appt on oct 28 #Colorectal CA screening Fit card positive a few years ago never went. She is [facility] and per CC team not covered for CC referral but I have written RX and she will take to [facility] varicose veins at [facility]--painful -referral to vascular br[facility] Has appt with mammogram at [place] used . Return to clinic to see me in 12 months, RTC sooner if needed. Clinical Reminders Diagnostic Colonoscopy: (+) FIT/FOBT identified. A diagnostic Colonoscopy is due based on information available to this reminder. A colonoscopy is currently scheduled or in process of being scheduled. /rajeev/ RUBI MCMILLAN Nurse Practitioner Signed: 09/14/2024 14:36 YAHAIRA ESCALANTE ID CNTRL W[facility]
--- OUTSIDE RECORDS SUMMARY | 2025-03-16 15:59 | XMS_ITS | Encounter Summary ---
Author Name Department of Vetera Affairs ([place]) Organization Department of Veter[place] Address [address] [place] [id number] Care Team Providers Care Fire Sprinkler Fitter Name Role Phone YAHAIRA ESCALANTE Primary Care [...] Name Patient's Relationship to Policy Bueno [facility] Feb 28, 2004 Jul 01, 2026 [facility] [id number] CHANDANLUIS ERAZOLITA PATIENT W/OME DICAR E Feb 28, 2004 Jul 01, 2026 [facility] [id number] CHANDANЕЛЕНА ERAZO PATIENT [facility] Feb 28, 2004 Jul 01, 2026 [id number] KIKO JORDAN JR SPOUSE [facility] Feb 28, 2004 Jul 01, 2026 [id number] [phone] ЕЛЕНА JORDAN PATIENT [facility] Feb 28, 2004 Jul 01, 2026 [id number] ЕЛЕНА JORDAN PATIENT [facility] Feb 28, 2004 Jul 01, 2026 [facility] [id number] [phone] ЕЛЕНА JORDAN PATIENT [facility] Jun 18, 2015 Jul 01, 2026 [facility] [id number] 88 ЕЛЕНА JORDAN PATIENT [facility] Jan 19, 2013 Jul 01, 2026 [facility] [id number] [phone] ЕЛЕНА JORDAN PATIENT [facility] Sep 22, 2012 Jul 01, 2026 [facility] [id number] 10 KIKO JORDAN JR SPOUSE [facility] Sep 22, 2012 Jul 01, 2026 [facility] [id number] 88 ЕЛЕНА JORDAN PATIENT [facility] RX [facility] Sep 22, 2012 Jul 01, 2026 [facility] [id number] [phone] ЕЛЕНА JORDAN PATIENT OPTUM RX PRESCRIPT [facility] Feb 28, 2004 Jul 01, 2026 [facility] [id number] [phone] ЕЛЕНА JORDAN PATIENT [facility]UM/[facility]DRA [facility] Jun 18, 2015 [facility] [id number] [phone] ЕЛЕНА JORDAN PATIENT Selected Encounter This section includes the information on record at ND for the Encounter. Date/Time Encounter Type Encounter Description Reason Provider Source April 17, 2024 07:38 AM Outpatient Encounter DERMATOLOGY ICD-10-CM R21 Rash and other nonspecific skin eruption [facility] Encounter Template Text not used by ND Assessments - Encounter Diagnoses This section includes the primary and secondary diagnoses documented for the Encounter. Date/Time Primary/Secondary Diagnosis Diagnosis Name Provider Source April 17, 2024 07:54 AM PRIMARY Rash and other nonspecific skin eruption [facility] Plan of Treatment: Future Appointments (+ 6 months) and Future Tests (+/- 45 days) The Plan of Treatment section includes future care activities for the patient from all ND treatmentfacilities. This section includes future appointments and future orders which are active, pending or scheduled. Future Appointments This section includes appointments that were scheduled to occur 6 months from the date of the Encounter, up to a maximum of 20 appointments. The data comes from all [facility]. Appointment Date/Time Appointment Type Appointme nt Facility Name Apr 21, 2024 01:30 PM [facility] Apr 28, 2024 10:00 AM AMBULATORY - PSYCHIATRY [facility] May 05, 2024 03:00 PM [facility] Jun 02, 2024 02:30 PM AMBULATORY - PSYCHIATRY [facility] Jun 04, 2024 03:30 PM [facility] Jul 08, 2024 03:00 PM AMBULATORY - PSYCHIATRY [facility] Jul 09, 2024 01:30 PM AMBULATORY - SURGERY [facility] Sep 04, 2024 11:30 AM AMBULATORY - PSYCHIATRY [facility] Sep 14, 2024 02:00 PM AMBULATORY - MEDIC[facility] Sep 15, 2024 11:30 AM AMBULATORY - MEDICINE [facility] Active, Pending, and Scheduled Orders This section includes a listing of several types of active, pending, and scheduled orders, including clinic medications orders, diagnostic test orders, procedure orders and consult orders; where the start date of the order is 45 days before the date of the Encounter or 45 days after the date of theEncounter. The data comes from all [facility]. Test Date/Time Test Type Test Details Facility Name March 18, 2024 12:00 AM Laboratory - Chemistry Order HEMOGLOBIN A1C PANEL BLOOD (LAV-BLOOD) [facility] Lab Results: +/- 30 days of the encounter This section includes the Chemistry and Hematology Lab Results on record with ND for the patient. Radiology Reports and Pathology Reports are provided separately, in subsequent sections. Lab Results This section contains the Chemistry/Hematology Results that were resulted 30 days before or 30 daysafter the date of the Encounter. Date/Time Source Result Type Result - Unit Interpretation Reference Range Specimen Type Comment Apr 21, 2024 02:06 PM [facility] HEMOGLOBIN A1C PANEL BLOOD Specimen Type: [...] April 17, 2024 01:15 PM Reporting Lab: [address] [address] Performing Lab: [address] [address] HEMOGLOBIN A1C 7.6 H 4.0-5.6 Apr 21, 2024 02:06 PM [facility] CBC BLOOD Specimen Type: BLOOD No comment entered. Ordering Provider: YAHAIRA ESCALANTE Report Released Date/Time: April 17, 2024 01:15 PM Reporting Lab: [address] [address] Performing Lab: [address] [address] WBC 9.47 10*3/uL 4.50-11.00 RBC 4.60 10*6/uL 3.93-5.16 HGB 13.9 g/dL 12-15.2 HCT 42.2 36.6-45.6 MCV 91.7 fL 82-99 MCHC 32.9 g/dL 30.8-35.1 PLT 244 10*3/uL 140-360 RDW-CV 12.4 12.0-16.0 MCH 30.2 pg 26.2-32.6 Apr 21, 2024 02:06 PM [facility] BASIC METABOLIC PANEL (non-fasting) SERUM Spe cimen Type: SERUM No comment entered. Ordering Provider: YAHAIRA ESCALANTE Report Released Date/Time: April 17, 2024 01:15 PM Reporting Lab: [address] [address] Performing Lab: [address] [address] UREA NITROGEN 15 mg/dL 7-25 GLUCOSE 140 mg/dL H 65-100 SODIUM 135 mmol/L 135-145 POTASSIUM 3.9 mmol/L 3.5-5.0 CHLORIDE 100 mmol/L 100-110 CO2 26 meq/L 20-30 CREATININE, Serum 0.69 mg/dL 0.50-1.40 eGFR(CKD-EPI 2020) >90 mL/min >60 Advance Directives: All historical and current Section Date Range: From patient's date of to the date document was created. This section includes ALL of a patient's completed or amended [place] Advance and Rescinded Directives. The entries below indicate that a directive exists for the patient, but an actual copy is not included with this document. The data comes from all [place] facilities. Date Advance Directives Provider Source Sep 08, 2009 ADVANCE DIRECTIVE ANAMARIACHOLO [facility] Encounter Notes: All associated [...] PA-C Dermatology Signed: 04/17/2024 07:54 [facility]
--- OUTSIDE RECORDS SUMMARY | 2025-03-16 16:00 | XMS_ITS | Encounter Summary ---
Author Name [facility] [place] Organization [place] Address [address] [place] [address] Care Team Providers Care Telephone Installer Name Role Phone YAHAIRA ESCALANTE Primary [...] Bueno's Name Patient's Relationship to Policy Bueno [facility] Feb 28, 2004 Jul 01, 2026 [facility] [id number] ЕЛЕНА JORDAN PATIENT W/OME DICAR E Feb 28, 2004 Jul 01, 2026 [facility] [id number] ЕЛЕНА JORDAN PATIENT [facility] Feb 28, 2004 Jul 01, 2026 [id number] [phone] KIKO JORDAN JR SPOUSE [facility] Feb 28, 2004 Jul 01, 2026 [id number] [phone] ЕЛЕНА JORDAN PATIENT [facility] Feb 28, 2004 Jul 01, 2026 [id number] ЕЛЕНА JORDAN PATIENT [facility] Feb 28, 2004 Jul 01, 2026 [facility] [id number] ЕЛЕНА JORDAN PATIENT [facility] Jun 18, 2015 Jul 01, 2026 [facility] [id number] [phone] ЕЛЕНА JORDAN PATIENT [facility] RX [facility] Jan 19, 2013 Jul 01, 2026 [facility] [id number] 88 ЕЛЕНА JORDAN PATIENT OPT[facility] RX [facility] Sep 22, 2012 Jul 01, 2026 [facility] [id number] 88 ЕЛЕНА JORDAN PATIENT [facility] RX [facility] Sep 22, 2012 Jul 01, 2026 [facility] [id number] KIKO JORDAN JR SPOUSE [facility] RX [facility] Sep 22, 2012 Jul 01, 2026 [facility] [id number] 88 ЕЛЕНА JORDAN PATIENT OPTUM RX PRESCRIPT [facility] Feb 28, 2004 Jul 01, 2026 [facility] [id number] 88 ЕЛЕНА JORDAN PATIENT OPTUM/SANDRA MARAN [facility] Jun 18, 2015 [facility] [id number] 88 ЕЛЕНА JORDAN PATIENT Selected Encounter This section includes the information on record at [place] for the Encounter. Date/Time Encounter Type Encounter Description Reason Provider Source March 18, 2024 02:30 PM OFFICE O/P EST MOD 30 MIN PRIMARY CARE/MEDICINE ICD-10-CM E11.9 Type 2 diabetes mellitus without complications YAHAIRA ESCALANTE [facility] Encounter Template Text not used by CT Assessments - Encounter Diagnoses This section includes the primary and secondary diagnoses documented for the Encounter. Date/Time Primary/Secondary Diagnosis Diagnosis Name Provider Source March 18, 2024 03:35 PM PRIMARY Type 2 diabetes mellitus without complications YAHAIRA ESCALANTE [facility] [place] [facility] March 18, 2024 03:35 PM SECONDARY Benign neoplasm of meninges, unspecified YAHAIRA ESCALANTE [facility] [place] [facility] March 18, 2024 03:35 PM SECONDARY Essential (primary) hypertension YAHAIRA ESCALANTE [facility] [place] [facility] March 18, 2024 03:35 PM SECONDARY Varicose veins of right lower extremity with inflammation YAHAIRA ESCALANTE [facility] [place] [facility] Plan of Treatment: Future Appointments (+ 6 months) and Future Tests (+/- 45 days) The Plan of Treatment section includes future care activities for the patient [facility] This section includes future appointments and future orders which are active, pending or scheduled. Future Appointments This section includes appointments that were scheduled to occur 6 months from the date of the Encounter, up to a maximum of 20 appointments. The data comes from all [place] treatment facilities. Appointment Date/Time Appointment Type Appointme nt Facility Name April 07, 2024 03:00 PM AMBULATORY - MEDICINE CT C [facility] [place] [facility] April 14, 2024 02:00 PM AMBULATORY - NONE [facility] [place] [facility] April 15, 2024 01:00 PM AMBULATORY - MEDICINE CT C [facility]L [facility] [place] [facility] April 16, 2024 02:00 PM AMBULATORY - NONE [facility] [place] [facility] Apr 21, 2024 01:30 PM AMBULATORY - MEDICINE CT C NTRL [facility] [place] [facility] Apr 28, 2024 10:00 AM AMBULATORY - PSYCHIATRY [facility] May 05, 2024 03:00 PM AMBULATORY - MEDICINE CT C NTRL [facility] [place] [facility] Jun 02, 2024 02:30 PM AMBULATORY - PSYCHIATRY [facility] Jun 04, 2024 03:30 PM AMBULATORY - MEDICINE CT C [facility]L [facility] [place] [facility] Jul 08, 2024 03:00 PM AMBULATORY - PSYCHIATRY [facility] Jul 09, 2024 01:30 PM AMBULATORY - SURGERY [facility] Sep 04, 2024 11:30 AM AMBULATORY - PSYCHIATRY [facility] Sep 14, 2024 02:00 PM AMBULATORY - MEDICINE CT C NTRL [facility] [place] [facility] Sep 15, 2024 11:30 AM AMBULATORY - MEDICINE CT C [facility]L [facility] [place] [facility] Active, Pending, and Scheduled Orders This section includes a listing of several types of active, pending, and scheduled orders, including clinic medications orders, diagnostic test orders, procedure orders and consult orders; where the start date of the order is 45 days before the date of the Encounter or 45 days after the date of theEncounter. The data comes from all [place] treatment facilities. Test Date/Time Test Type Test Details Facility Name March 18, 2024 12:00 AM Laboratory - Chemistry Order HEMOGLOBIN A1C PANEL BLOOD (LAV-BLOOD) [facility] Vital Signs: All taken on the encounter date This section contains inpatient and outpatient Vital Signs collected on the date of the Encounter. Date/Time Temperature Pulse Blood Pressure Respiratory Rate SP02 Pain Height Weight Body Mass Index Source March 18, 2024 02:38 PM 98.6 80 121/81 [address] [facility] [place] [facility] Social History: Smoking Status (Most current) [...] 09, 2023 01:00 PM VA-TOBACCO [facility] Tobacco Use History This section includes a history of the smoking, or tobacco-related health factors, that were collected on or before the date of the Encounter. The data comes from the [place] facility where the Encounter took place. Date/Time Smoking Status/Tobacco Use Comment F acility Jan 04, 2023 03:00 PM VA-TOBACCO NEVER USED CT CN[facility]L [facility] [place] [facility] Feb 20, 2021 11:30 AM VA-TOBACCO NEVER USED CT CN[facility]L [facility] [place] [facility] Feb 18, 2020 09:39 AM VA-TOBACCO NEVER USED CT CN[facility]L [facility] [place] [facility] Dec 02, 2018 03:30 PM VA-TOBACCO FORMER USER CT CN[facility]L [facility] [place] [facility] Dec 02, 2018 03:30 PM VA-TOBACCO QUIT [address] [facility] [place] [facility] Feb 28, 2018 02:37 PM QUIT TOBACCO USE > [address] [facility] [place] [facility] Nov 23, 2016 10:49 AM LIFETIME NON-TOBACCO USER CT CNTRL [facility] April 10, 2005 09:23 AM LIFETIME NON-SMOKER [facility] April 10, 2005 09:23 AM LIFETIME NON-TOBACCO USER [facility] Advance Directives: All historical and current [...] Sep 08, 2009 ADVANCE DIRECTIVE CHOLO CONRAD [facility] Encounter Notes: All associated encounter notes [...] diminished) SENSORY CHECK: Includes 10 gram Monofilament ([place]-Bg) test of sensation. Intact (Greater than or [...] TEAM NURSE Signed: 03/18/2024 14:[address] [facility] [place] [facility] March 18, 2024 02:38 PM PRIMARY CARE [...] a few weeks Meningioma MRI ordered through [place] for f/u she apparently had COVID so [...] stable on MRI 01/31, repeat ordered for [facility] 7. Sleep apnea 8. Adjustment disorder with anxious mood (SNOMED CT 88357990) 9. Hidradenitis * 10. Type 2 diabetes mellitus (SNOMED CT 95146709) 11. Insomnia * 12. Hysterectomy * 13. Dizziness * 14. Somatization Disorder 15. Obesity (SNOMED CT 775832833) 16. Headache * 17. Hypertension (SNOMED CT 91230556) 18. Hyperlipidemia (SNOMED CT 24125491) 19. CONRADO - Generalized anxiety disorder (SNOMED CT 28538164) reviewed 20. Depression (SNOMED CT 44257610) denies recent depression reviewed Allergies: OMEPRAZOLE, DILAUDID, [...] a few weeks #Meningioma MRI ordered through [place] for f/u she apparently had COVID so [...] (local) and dispensed from another [place] or [facility] facility (remote) as well as inpatient orders [...] Nurse Practitioner Signed: 04/17/2024 13:17 YAHAIRA ESCALANTE [facility]
--- OUTSIDE RECORDS SUMMARY | 2025-03-16 16:00 | XMS_ITS | Encounter Summary ---
Author Name [facility] [place] Organization [place] Address [address] [place] [address] Care Team Providers Care Drilling Inspector Name Role Phone YAHAIRA ESCALANTE Primary Care [...] Bueno's Name Patient's Relationship to Policy Bueno [facility] Feb 28, 2004 Jul 01, 2026 [facility] [id number] ЕЛЕНА JORDAN PATIENT W/OME DICAR E Feb 28, 2004 Jul 01, 2026 [facility] [id number] 88 ЕЛЕНА JORDAN PATIENT [facility] Feb 28, 2004 Jul 01, 2026 [id number] [phone] KIKO JORDAN JR SPOUSE [facility] Feb 28, 2004 Jul 01, 2026 [id number] ЕЛЕНА JORDAN PATIENT [facility] Feb 28, 2004 Jul 01, 2026 [id number] ЕЛЕНА JORDAN PATIENT [facility] Feb 28, 2004 Jul 01, 2026 [facility] [id number] 88 ЕЛЕНА JORDAN PATIENT [facility] RX [facility] Jun 18, 2015 Jul 01, 2026 [facility] [id number] [phone] ЕЛЕНА JORDAN PATIENT [facility] Jan 19, 2013 Jul 01, 2026 [facility] [id number] [phone] 7 ЕЛЕНА JORDAN PATIENT OPTUM RX [facility] Sep 22, 2012 Jul 01, 2026 [facility] [id number] [phone] 3 ЕЛЕНА JORDAN PATIENT [facility] RX [facility] Sep 22, 2012 Jul 01, 2026 [facility] [id number] 10 KIKO JORDAN JR SPOUSE [facility] RX [facility] Sep 22, 2012 Jul 01, 2026 [facility] [id number] 88 ЕЛЕНА JORDAN PATIENT OPTUM RX PRESCRIPT [facility] Feb 28, 2004 Jul 01, 2026 [facility] [id number] [phone] ЕЛЕНА JORDAN PATIENT OPTUM/SANDRA MARAN [facility] Jun 18, 2015 [facility] [id number] [phone] ЕЛЕНА JORDAN PATIENT Selected Encounter This section includes the information on record at [place] for the Encounter. Date/Time Encounter Type Encounter Description Reason Pro vider Source April 05, 2024 10:01 PM Outpatient Encounter ADMIN PAT ACTIVTIES (MASNONCT) IHE Encounter Template Text not used by [place] Plan of Treatment: Future Appointments (+ 6 months) and Future Tests (+/- 45 days) The Plan of Treatment section includes future care activities for the patient from all [place] [facility]. This section includes future appointments and future orders which are active, pending or scheduled. Future Appointments This section includes appointments that were scheduled to occur 6 months from the date of the Encounter, up to a maximum of 20 appointments. The data comes from all [place] treatment facilities. Appointment Date/Time Appointment Type Appointme nt Facility Name April 07, 2024 03:00 PM AMBULATORY - [place]ICINE [place] [facility] [place] [facility] April 14, 2024 02:00 PM AMBULATORY - NONE [place] [facility] [place] [facility] April 15, 2024 01:00 PM AMBULATORY - [place]ICINE [place] [facility] [place] [facility] April 16, 2024 02:00 PM AMBULATORY - NONE [place] [facility] [place] [facility] Apr 21, 2024 01:30 PM AMBULATORY - MEDICINE [place] [facility] [place] [facility] Apr 28, 2024 10:00 AM AMBULATORY - PSYCHIATRY [facility] May 05, 2024 03:00 PM AMBULATORY - MEDICINE [place] [facility] [place] [facility] Jun 02, 2024 02:30 PM AMBULATORY - PSYCHIATRY [facility] Jun 04, 2024 03:30 PM AMBULATORY - MEDICINE [place] [facility] [place] [facility] Jul 08, 2024 03:00 PM AMBULATORY - PSYCHIATRY [facility] Jul 09, 2024 01:30 PM AMBULATORY - SURGERY [facility] Sep 04, 2024 11:30 AM AMBULATORY - PSYCHIATRY [facility] Sep 14, 2024 02:00 PM AMBULATORY - MEDICINE [facility]L [place] [facility] Sep 15, 2024 11:30 AM AMBULATORY - MEDICINE [facility]L [place] [facility] Active, Pending, and Scheduled Orders [...] Chemistry Order HEMOGLOBIN A1C PANEL BLOOD (LAV-BLOOD) [facility] Lab Results: +/- 30 days of the encounter This section includes the Chemistry and Hematology Lab Results on record with [place] for the patient. Radiology Reports and Pathology Reports are provided separately, in subsequent sections. Lab Results This section contains the Chemistry/Hematology Results that were resulted 30 days before or 30 daysafter the date of the Encounter. Date/Time Source Result Type Result - Unit Interpretation Reference Range Specimen Type Comment Apr 21, 2024 02:06 PM [facility] HEMOGLOBIN A1C PANEL BLOOD Specimen Type: [...] April 17, 2024 01:15 PM Reporting Lab: [facility] [address] [address] Performing Lab: [address] [address] HEMOGLOBIN A1C 7.6 H 4.0-5.6 Apr 21, 2024 02:06 PM [facility] BASIC METABOLIC PANEL (non-fasting) SERUM Spe cimen Type: SERUM No comment entered. Ordering Provider: YAHAIRA ESCALANTE Report Released Date/Time: April 17, 2024 01:15 PM Reporting Lab: [address] [address] Performing Lab: [address] [address] UREA NITROGEN 15 mg/dL 7-25 GLUCOSE 140 mg/dL H 65-100 SODIUM 135 mmol/L 135-145 POTASSIUM 3.9 mmol/L 3.5-5.0 CHLORIDE 100 mmol/L 100-110 CO2 26 meq/L 20-30 CREATININE, Serum 0.69 mg/dL 0.50-1.40 eGFR(CKD-EPI 2020) >90 mL/min >60 Apr 21, 2024 02:06 PM [facility] CBC BLOOD Specimen Type: BLOOD No comment entered. Ordering Provider: YAHAIRA ESCALANTE Report Released Date/Time: April 17, 2024 01:15 PM Reporting Lab: [facility] [address] [address] Performing Lab: [address] [address] WBC 9.47 10*3/uL 4.50-11.00 RBC 4.60 10*6/uL [...] 09, 2023 01:00 PM VA-TOBACCO NEVER USED [place] [facility] [facility] Tobacco Use History This section includes a history of the smoking, or tobacco-related health factors, that were collected on or before the date of the Encounter. The data comes from the [place] facility where the Encounter took place. Date/Time Smoking Status/Tobacco Use Comment F acility Jan 04, 2023 03:00 PM VA-TOBACCO NEVER USED [place] [facility] [facility] Feb 20, 2021 11:30 AM VA-TOBACCO NEVER USED [place] [facility] [facility] Feb 18, 2020 09:39 AM VA-TOBACCO NEVER USED [facility] [place] [facility] Dec 02, 2018 03:30 PM VA-TOBACCO FORMER USER [facility] [facility] Dec 02, 2018 03:30 PM VA-TOBACCO QUIT 15 YRS OR MORE [facility] [place] [facility] Feb 28, 2018 02:37 PM QUIT TOBACCO USE > 7 YEARS AGO [facility] [facility] Nov 23, 2016 10:49 AM LIFETIME NON-TOBACCO USER [facility] [place] [facility] April 10, 2005 09:23 AM LIFETIME NON-SMOKER [facility] [place] [facility] April 10, 2005 09:23 AM LIFETIME NON-TOBACCO USER [facility] [place] [facility] Advance Directives: All historical and current Section Date Range: From patient's date of to the date document was created. This section includes ALL of a patient's completed or amended [place] Advance and Rescinded Directives. The entries below indicate that a directive exists for the patient, but an actual copy is not included with this document. The data comes from all [place] facilities. Date Advance Directives Provider Source Sep 08, 2009 ADVANCE DIRECTIVE CHOLO CONRAD [facility] Encounter Notes: All associated encounter notes This section contains the clinical notes associated to the Encounter. Date/Time Encounter Note(s) Provider Source April 05, 2024 10:01 PM PHARMACY NOTE: LOCAL TITLE: PHARMACY CUSTOMER CARE MEDICATION RENEWAL STANDARD TITLE: PHARMACY NOTE DATE OF NOTE: APRIL 05, 2024@22:01 ENTRY DATE: APRIL 05, 2024@22:01:37 AUTHOR: LAUREN STREETER EXP COSIGNER: URGENCY: STATUS: COMPLETED Date: March Division: [facility] referred by Pharmacy Call Center for medication renewal: Non-controlled/maintenanc e medication Medications requested: [id number] EMPAGLIFLOZIN 10MG TABLET Patient is out of medication and would appreciate expedited delivery if available. Please contact the outpatient pharmacy for assistance with shipment Defer to primary care provider To be mailed . Please review and renew if appropriate. *This note was generated by [facility]/[place] Pharmacy Customer Care. If you have any questions or need assistance, do not contact this author. Please refer all questions to your local, on-site pharmacy departments. /rajeev/ LAUREN STREETER CPhT Tetryl Wringer Operator, [place]/Pharmacy Customer Care Signed: 04/05/2024 22:02 Receipt Acknowledged By: 12/08/2024 14:17 /rajeev/ JONI COOLEY M.D. PHYSICIAN LAUREN STREETER [facility]
--- OUTSIDE RECORDS SUMMARY | 2025-03-16 16:00 | XMS_ITS | Encounter Summary ---
Author Name [facility] [place] Organization [facility] ([place]) Address [address] [place] [id number] Care Team Providers Care Grinder Operator Tool Name Role Phone YAHAIRA ESCALANTE Primary Care [...] Bueno's Name Patient's Relationship to Policy Bueno [facility] Feb 28, 2004 Jul 01, 2026 [facility] [id number] ЕЛЕНА JORDAN PATIENT W/OME DICAR E Feb 28, 2004 Jul 01, 2026 [facility] [id number] 88 CHANDANCASTRO ЕЛЕНА PATIENT [facility] Feb 28, 2004 Jul 01, 2026 [id number] KIKO JORDAN JR SPOUSE [facility] Feb 28, 2004 Jul 01, 2026 [id number] [phone] ЕЛЕНА JORDAN PATIENT [facility] Feb 28, 2004 Jul 01, 2026 [id number] [phone] ЕЛЕНА JORDAN PATIENT [facility] Feb 28, 2004 Jul 01, 2026 [facility] [id number] 88 ЕЛЕНА JORDAN PATIENT [facility] Jun 18, 2015 Jul 01, 2026 [facility] [id number] 88 SUMMER JORDANTA PATIENT [facility] Jan 19, 2013 Jul 01, 2026 [facility] [id number] 88 SUMMER JORDANTA PATIENT OPTUM RX [facility] Sep 22, 2012 Jul 01, 2026 [facility] [id number] 88 SUMMER JORDANTA PATIENT [facility] Sep 22, 2012 Jul 01, 2026 [facility] [id number] 10 KIKO JORDAN JR SPOUSE [facility] Sep 22, 2012 Jul 01, 2026 [facility] [id number] 88 ЕЛЕНА JORDAN PATIENT [facility] RX [facility] PRESCRIPT [facility] Feb 28, 2004 Jul 01, 2026 [facility] [id number] 88 ЕЛЕНА JORDAN PATIENT OPTUM/SANDRA MARAN [facility] Jun 18, 2015 [facility] [id number] [phone] 7 ЕЛЕНА JORDAN PATIENT Selected Encounter This section includes the information on record at [place] for the Encounter. Date/Time Encounter Type Encounter Description Reason Provider Source Feb 23, 2025 02:30 PM OFFICE O/P EST MOD 30 MIN [facility] - IND ICD-10-CM F33.8 Other recurrent depressive disorders KENDALL ZHANG Ana Encounter Template Text not used by [place] [...] 20 appointments. The data comes from all [facility]. Appointment Date/Time Appointment Type Appointme nt Facility Name April 08, 2025 03:00 PM AMBULATORY - PSYCHIATRY [facility] Jun 25, 2025 03:00 PM AMBULATORY - PSYCHIATRY [facility] Jun 29, 2025 02:30 PM AMBULATORY - MEDICINE [facility] Active, Pending, and Scheduled Orders This section includes a listing of several types of active, pending, and scheduled orders, including clinic medications orders, diagnostic test orders, procedure orders and consult orders; where the start date of the order is 45 days before the date of the Encounter or 45 days after the date of theEncounter. The data comes from all [facility]. Test Date/Time Test Type Test Details Facility Name Feb 12, 2025 12:00 AM Laboratory - Chemistry Order LIPID PANEL FASTING BLOOD (SST-SERUM) [facility] Feb 12, 2025 12:00 AM Laboratory - Chemistry Order BASIC METABOLIC PANEL (non-fasting) BLOOD (SST-SERUM) [facility] Feb 12, 2025 12:00 AM Laboratory - Chemistry Order HEMOGLOBIN A1C PANEL BLOOD (LAV-BLOOD) [facility] Feb 12, 2025 12:00 AM Laboratory - Chemistry Order MICROALBUMIN CREATININE RATIO PANEL URINE (RANDOM) [facility] Social History: Smoking Status (Most current) and [...] Bell romero Jan 24, 2022 02:00 PM [place]-TO[place]ACCO NEVER USED [place] Tobacco Use History This section includes a history of the smoking, or tobacco-related health factors, that were collected on or before the date of the Encounter. The data comes from the [place] facility where the Encounter took place. Date/Time Smoking Status/Tobacco Use Comment F acility Nov 29, 2015 02:08 PM LIFETIME NON-TOBACCO USER [place] Advance Directives: All historical and current Section [...] Sep 08, 2009 ADVANCE DIRECTIVE CHOLO CONRAD [facility] Encounter Notes: All associated encounter notes [...] of dx/tx of breast cancer (followed at [facility]), followed by primary care. Despite this [...] Adjustment disorder with anxious mood (SNOMED CT 79831712) 10. Hydradenitis * 11. Type 2 diabetes mellitus (SNOMED CT 93785473) 12. Insomnia * 13. Hysterectomy * 14. Dizziness * 15. Somatization Disorder 16. Obesity (SNOMED CT 439013707) 17. Headache * 18. Hypertension (SNOMED CT 00717953) 19. Hyperlipidemia (SNOMED CT 34083621) 20. CONRADO - Generalized anxiety disorder (SNOMED CT 72896815) 21. Depression (SNOMED CT 35496981) Active Outpatient Medications (including Supplies): Active Outpatient [...] with the patient. Patient sometimes uses MELATONIN [id number]-[id number] for sleep, in addition to hydroxyzine, well-tolerated [...] this [facility] ([place]) and dispensed from another [place] or [facility] facility (remote) as well as [...] Receipt Acknowledged By: 02/23/2025 15:25 /rajeev/ Shanelle Gomez ADVANCED TIE INSPECTOR AZAEL ZHANG
--- OUTSIDE RECORDS SUMMARY | 2025-03-16 16:00 | XMS_ITS | Encounter Summary ---
Author Name Department of Veter[place] Affairs ([place]) Organization [facility] ([place] Address [address] [place] [id number] Care Team Providers Care Copper Plater Name Role Phone YAHAIRA ESCALANTE Primary Care [...] Bueno's Name Patient's Relationship to Policy Bueno [facility] Feb 28, 2004 Jul 01, 2026 [facility] [id number] ЕЛЕНА JORDAN PATIENT W/OME DICAR E Feb 28, 2004 Jul 01, 2026 [facility] [id number] [phone] CHANDANCASTRO ЕЛЕНА PATIENT [facility] Feb 28, 2004 Jul 01, 2026 [id number] KIKO JORDAN JR SPOUSE [facility] Feb 28, 2004 Jul 01, 2026 [id number] [phone] ЕЛЕНА JORDAN PATIENT [facility] Feb 28, 2004 Jul 01, 2026 [id number] ЕЛЕНА JORDAN PATIENT [facility] Feb 28, 2004 Jul 01, 2026 [facility] [id number] ЕЛЕНА JORDAN PATIENT [facility] Jun 18, 2015 Jul 01, 2026 [facility] [id number] SUMMER JORDANTA PATIENT [facility] Jan 19, 2013 Jul 01, 2026 [facility] [id number] SUMMER JORDANTA PATIENT [facility] Sep 22, 2012 Jul 01, 2026 [facility] [id number] SUMMER JORDANTA PATIENT [facility] Sep 22, 2012 Jul 01, 2026 [facility] [id number] KIKO JORDAN JR SPOUSE [facility] Sep 22, 2012 Jul 01, 2026 [facility] [id number] ЕЛЕНА JORDAN PATIENT [facility] PRESCRIPT [facility] Feb 28, 2004 Jul 01, 2026 [facility] [id number] [phone] ЕЛЕНА JORDAN PATIENT [facility]SANDRA MARAN [facility] Jun 18, 2015 [facility] [id number] [phone] ЕЛЕНА JORDAN PATIENT Selected Encounter This section includes the information on record at [place] for the Encounter. Date/Time Encounter Type Encounter Description Reason Provider Source April 16, 2024 02:00 PM UNLISTED SPEC DERM SVC/PX DERMATOLOGY ICD-10-CM Z13.89 Encounter for screening for other disorder BERTHA SHELTON Ana Encounter Template Text not used by [place] Assessments - Encounter Diagnoses This section includes the primary and secondary diagnoses documented for the Encounter. Date/Time Primary/Secondary Diagnosis Diagnosis Name Provider Source April 16, 2024 03:38 PM PRIMARY Encounter for screening for other disorder BELINDA SHELTON [place] Plan of Treatment: Future Appointments (+ 6 [...] 20 appointments. The data comes from all [facility]. Appointment Date/Time Appointment Type Appointme nt Facility Name Apr 21, 2024 01:30 PM AMBULAT[facility] Apr 28, 2024 10:00 AM AMBULATORY - PSYCHIATRY [facility] May 05, 2024 03:00 PM [facility] Jun 02, 2024 02:30 PM AMBULATORY - PSYCHIATRY [facility] Jun 04, 2024 03:30 PM AMBULATORY MEDICINE [facility] Jul 08, 2024 03:00 PM AMBULATORY - PSYCHIATRY [facility] Jul 09, 2024 01:30 PM AMBULATORY - SURGERY [facility] Sep 04, 2024 11:30 AM AMBULATORY - PSYCHIATRY [facility] Sep 14, 2024 02:00 PM AMBULATORY - MEDICINE [facility] Sep 15, 2024 11:30 AM AMBULATORY - MEDICINE [facility] Active, Pending, and Scheduled Orders This section includes a listing of several types of active, pending, and scheduled orders, including clinic medications orders, diagnostic test orders, procedure orders and consult orders; where the start date of the order is 45 days before the date of the Encounter or 45 days after the date of theEncounter. The data comes from all [facility]. Test Date/Time Test Type Test Details Facility Name March 18, 2024 12:00 AM Laboratory - Chemistry Order HEMOGLOBIN A1C PANEL BLOOD (LAV-BLOOD) [facility] Lab Results: +/- 30 days of [...] Type Comment Apr 21, 2024 02:06 PM [facility] HEMOGLOBIN A1C PANEL BLOOD Specimen Type: [...] April 17, 2024 01:15 PM Reporting Lab: [address] [address] Performing Lab: [address] [address] HEMOGLOBIN A1C 7.6 H 4.0-5.6 Apr 21, 2024 02:06 PM [facility] BASIC METABOLIC PANEL (non-fasting) SERUM Spe cimen Type: SERUM No comment entered. Ordering Provider: YAHAIRA ESCALANTE Report Released Date/Time: April 17, 2024 01:15 PM Reporting Lab: [address] [address] Performing Lab: [address] [address] UREA NITROGEN 15 mg/dL 7-25 GLUCOSE 140 mg/dL H 65-100 SODIUM 135 mmol/L 135-145 POTASSIUM 3.9 mmol/L 3.5-5.0 CHLORIDE 100 mmol/L 100-110 CO2 26 meq/L 20-30 CREATININE, Serum 0.69 mg/dL 0.50-1.40 eGFR(CKD-EPI 2020) >90 mL/min >60 Apr 21, 2024 02:06 PM [facility] CBC BLOOD Specimen Type: BLOOD No comment entered. Ordering Provider: YAHAIRA ESCALANTE Report Released Date/Time: April 17, 2024 01:15 PM Reporting Lab: [address] [address] Performing Lab: [address] [address] WBC 9.47 10*3/uL 4.50-11.00 RBC 4.60 10*6/uL [...] and tobacco- related health factors from the [place] facility where the Encounter took place. Current Smoking Status This section includes the most current smoking, or tobacco-related health factor, from the [place] facility where the Encounter took place. Date/Time Current Smoking Status Comment Facil ity Jan 24, 2022 02:00 PM VA-TOBACCO NEVER USED [place] Tobacco Use History This section includes a history of the smoking, or tobacco-related health factors, that were collected on or before the date of the Encounter. The data comes from the [place] facility where the Encounter took place. Date/Time Smoking Status/Tobacco Use Comment F acility Nov 29, 2015 02:08 PM LIFETIME NON-TOBACCO USER [place] Advance Directives: All historical and current Section Date Range: From patient's date of to the date document was created. This section includes ALL of a patient's completed or amended [place] Advance and Rescinded Directives. The entries below indicate that a directive exists for the patient, but an actual copy is not included with this document. The data comes from all [place] facilities. Date Advance Directives Provider Source Sep 08, 2009 ADVANCE DIRECTIVE CHOLO CONRAD [facility] Encounter Notes: All associated encounter [...] 0.1% OINT,TOP 0.1% but helping BIOPSY: No Supervisor Net Making's comments: Imaged per provider's direction and facility brandin. /rajeev/ QUAN SHELTON TELEHEALTH CLINICAL TECHNIAN (TCT) Signed: 04/16/2024 15:38 QUAN SHELTON ALEJANDRINA
--- OUTSIDE RECORDS SUMMARY | 2025-03-16 16:00 | XMS_ITS ---
Author Name Department of [place] Organization [facility] of [place] Address [address] [place] [address] Care Team Providers Care Product Safety Head Name Role Phone YAHAIRA ESCALANTE Primary Care [...] Bueno's Name Patient's Relationship to Policy Bueno [facility] Feb 28, 2004 Jul 01, 2026 [facility] [id number] CHANDANCASTRO ЕЛЕНА PATIENT W/OME DICAR E Feb 28, 2004 Jul 01, 2026 W/[facility] [id number] CHANDANLUIS ERAZOLITA PATIENT [facility] Feb 28, 2004 Jul 01, 2026 [id number] [phone] KIKO JORDAN JR SPOUSE [facility] Feb 28, 2004 Jul 01, 2026 [id number] [phone] ЕЛЕНА JORDAN PATIENT [facility] Feb 28, 2004 Jul 01, 2026 [id number] [place], ЕЛЕНА PATIENT [facility] Feb 28, 2004 Jul 01, 2026 [id number] [phone] ЕЛЕНА JORDAN PATIENT [facility] Jun 18, 2015 Jul 01, 2026 [facility] [id number] SUMMER JORDANTA PATIENT [facility] Jan 19, 2013 Jul 01, 2026 [facility] [id number] [phone] SUMMER JORDANTA PATIENT [facility] Sep 22, 2012 Jul 01, 2026 [facility] [id number] SUMMER JORDANTA PATIENT [facility] Sep 22, 2012 Jul 01, 2026 [facility] [id number] KIKO JORDAN JR SPOUSE [facility] Sep 22, 2012 Jul 01, 2026 [facility] [id number] [phone] ЕЛЕНА JORDAN PATIENT [facility] Feb 28, 2004 Jul 01, 2026 [facility] [id number] [phone] ЕЛЕНА JORDAN PATIENT [facility]/SANDRA MARAN [facility] Jun 18, 2015 [facility] [id number] [phone] ЕЛЕНА JORDAN PATIENT Selected Encounter This section includes the information on record at [place] for the Encounter. Date/Time Encounter Type Encounter Description Reason Provider Source Sep 15, 2024 11:30 AM INTRM OPH EXAM EST PATIENT OPTOM[facility]RY ICD-10-CM Z96.1 Presence of intraocular lens HILARIA ALCANTAR Encounter Template Text not used by [place] Assessments - Encounter Diagnoses This section includes the primary and secondary diagnoses documented for the Encounter. Date/Time Primary/Secondary Diagnosis Diagnosis Name Provider Source Sep 15, 2024 10:56 AM PRIMARY Presence of intraocular lens PAUL ALCANTAR [facility] Sep 15, 2024 10:56 AM SECONDARY Dry eye syndrome of bilateral lacrimal glands PAUL ALCANTAR [facility] Sep 15, 2024 10:56 AM SECONDARY Type 2 diabetes mellitus without complications PAUL ALCANTAR [facility] Plan of Treatment: Future Appointments (+ 6 months) and Future Tests (+/- 45 days) The Plan of Treatment section includes future care activities for the patient from all [place] [facility]. This section includes future appointments and future orders which are active, pending or scheduled. Future Appointments This section includes appointments that were scheduled to occur 6 months from the date of the Encounter, up to a maximum of 20 appointments. The data comes from all [facility] facilities. Appointment Date/Time Appointment Type Appointme nt Facility Name Feb 23, 2025 02:30 PM AMBULATORY - PSYCHIATRY [facility] Active, Pending, and Scheduled Orders This section includes a listing of several types of active, pending, and scheduled orders, including clinic medications orders, diagnostic test orders, procedure orders and consult orders; where the start date of the order is 45 days before the date of the Encounter or 45 days after the date of theEncounter. The data comes from all [facility] facilities. Test Date/Time Test Type Test Details Facility Name Sep 14, 2024 02:23 PM Consult Order ENDOCRINE/ NHM OUTPT Cons Microeconomics Professor's Choice [facility] Lab Results: +/- 30 days of the encounter This section includes the Chemistry and Hematology Lab Results on record with [place] for the patient. Radiology Reports and Pathology Reports are provided separately, in subsequent sections. Lab Results This section contains the Chemistry/Hematology Results that were resulted 30 days before or 30 daysafter the date of the Encounter. Date/Time Source Result Type Result - Unit Interpretation Reference Range Specimen Type Comment Sep 14, 2024 02:48 PM [facility] HEMOGLOBIN A1C PANEL BLOOD Specimen Type: [...] Sep 14, 2024 02:24 PM Reporting Lab: [address] [address] Performing Lab: [facility] [place] [facility] [address] [address] HEMOGLOBIN A1C 8.1 H 4.0-5.6 Sep 14, 2024 02:48 PM [facility] [place] [facility] MICROALBUMIN CREATININE RATIO PANEL URINE Spe cimen Type: URINE No comment entered. Ordering Provider: YAHAIRA ESCALANTE Report Released Date/Time: Sep 14, 2024 02:25 PM Reporting Lab: [facility] [place] [facility] [address] [address] Performing Lab: [facility] [place] [facility] [address] [facility] [address] MICROALBUMIN/CREATININE RATIO canc mg/g 0-29.9 MICROALBUMIN,QUANTITATIVE < 0.5 mg/dL RR UNAVAIL CREATININE URINE 27.03 mg/dL Social History: Smoking Status (Most current) and Tobacco Use (All prior to encounter date) This section includes the most current, and the historical, smoking and tobacco- related health factors from the [place] facility where the Encounter took place. Current Smoking Status This section includes the most current smoking, or tobacco-related health factor, from the [place] facility where the Encounter took place. Date/Time Current Smoking Status Comment Bell romero Dec 09, 2023 01:00 PM VA-TOBACCO NEVER USED [facility] [place] [facility] Tobacco Use History This section includes a history of the smoking, or tobacco-related health factors, that were collected on or before the date of the Encounter. The data comes from the [place] facility where the Encounter took place. Date/Time Smoking Status/Tobacco Use Comment F acility Jan 04, 2023 03:00 PM VA-TOBACCO NEVER USED [facility] [place] [facility] Feb 20, 2021 11:30 AM VA-TOBACCO NEVER USED [facility] [place] [facility] Feb 18, 2020 09:39 AM VA-TOBACCO NEVER USED [facility] [place] [facility] Dec 02, 2018 03:30 PM VA-TOBACCO FORMER USER [facility] [place] [facility] Dec 02, 2018 03:30 PM VA-TOBACCO QUIT 15 YRS OR MORE [facility] [place] [facility] Feb 28, 2018 02:37 PM QUIT TOBACCO USE > 7 YEARS AGO [facility] Nov 23, 2016 10:49 AM LIFETIME NON-TOBACCO USER [facility] April 10, 2005 09:23 AM LIFETIME NON-SMOKER [facility] April 10, 2005 09:23 AM LIFETIME NON-TOBACCO USER [facility] Advance Directives: All historical and current Section Date Range: From patient's date of to the date document was created. This section includes ALL of a patient's completed or amended [place] Advance and Rescinded Directives. The entries below indicate that a directive exists for the patient, but an actual copy is not included with this document. The data comes from all [place] facilities. Date Advance Directives Provider Source Sep 08, 2009 ADVANCE DIRECTIVE ANATOLY CONRADNadja Thaddeus [facility] Encounter Notes: All [...] Anton but is not happy with the [id number] reading glasses he recommended. Anterior segment evaluation [...] OF OPTOMETRY Signed: 09/15/2024 10:56 PERFECTO ALCANTAR [facility] [place] [facility] Sep 15, 2024 10:14 AM OPTOMETRY NOTE: [...] Adjustment disorder with anxious mood (SNOMED CT 40644803) 9. Hydradenitis * 10. Type 2 diabetes mellitus (SNOMED CT 79699834) 11. Insomnia * 12. Hysterectomy * 13. Dizziness * 14. Somatization Disorder 15. Obesity (SNOMED CT 319331195) 16. Headache * 17. Hypertension (SNOMED CT 07748393) 18. Hyperlipidemia (SNOMED CT 27932315) 19. CONRADO - Generalized anxiety disorder (SNOMED CT 92195627) 20. Depression (SNOMED CT 51496850) Active Outpatient Medications (including Supplies): Active Outpatient [...] [facility] vision and [...] (facial, peripheral): FTFC OU Subjective Refraction: OD: [place] sph 20/20 OS: [place] sph 20/20 Add:+2.50 20/20 Final SRx OD: [place] sph OS: [place] sph Add:+2.75 for pt's preferred WD All [...] 3. Presbyopia OU - Pt. ed. on todays findings - Gave pt updated SRx - [...] OF OPTOMETRY Cosigned: 09/16/2024 09:30 TOÑO GRAVES [facility] W[facility]ad[facility]
--- NOTE | 2025-03-16 16:10 | PC.NURSE ---
Attempted to access patient's port w/ MARY Trejo. Old sutures noted superior to access site. Patient stating port site is painful for her and that she's has an infection per her doctor unsure which one. Port accessed but w/ poor blood return and pain for patient. Flush noted to leak from suture sites. Does not seem safe to use for contrast. Provider made aware. US guided IV to be obtained for CT contrast.
[2025-03-16 16:13] VITALS: BP 109/69; PULSE 110; RESP 18; O2SAT 97
[2025-03-16] MEDS: iohexoL 350 MG/ML 100 ML INFUS..BTL IV (16:51)
[2025-03-16] MEDS: 0.9 % Sodium Chloride 1,000 ML 999 ML IV (18:09)
[2025-03-16 18:29] LABS: Troponin-I High Sensitivity 13.7 ng/L (<3.5-17.0)
[2025-03-16 18:58] VITALS: BP 137/78; PULSE 99; RESP 12; O2SAT 100
[2025-03-16] MEDS: diazePAM 10 MG/2 ML CARTRIDGE 2.5 MG IVPUSH (19:01)
[2025-03-16 19:35] LABS: Troponin-I High Sensitivity 16.8 ng/L (<3.5-17.0)
[2025-03-16 21:09] VITALS: BP 154/90; PULSE 100; RESP 12; TEMP 36.7; O2SAT 100
== END 2025-03-16 21:11 | disposition home or self-care (01) ==
PROVIDERS: Physician Assistant; Physician Assistant Medical; Emergency Provider Emergency Medicine
DX: R00.0 Tachycardia, unspecified (principal); R07.9 Chest pain, unspecified; R10.9 Unspecified abdominal pain; R19.7 Diarrhea, unspecified; J02.9 Acute pharyngitis, unspecified; M79.10 Myalgia, unspecified site; Z79.899 Other long term (current) drug therapy; Z03.818 Encounter for observation for suspected exposure to other biological agents ruled out
CPT/HCPCS: 0241U; 36415; 71046; 71275; 74177; 80053; 81001; 82947; 83690; 84484; 85007; 85027; 87651; 93005; 96361; 96374; 99285; J3360; Q9967

== ENCOUNTER → 2025-03-16 12:59 | Outpatient (BNV) | payer OTHER, SELFPAY | PROVIDERS: Emergency Provider Emergency Medicine; Visit Provider Internal Medicine Cardiovascular Disease | DX: R00.0 Tachycardia, unspecified (principal) | CPT/HCPCS: 93010 ==

== ENCOUNTER → 2025-03-16 13:00 | Outpatient (BNV) | payer OTHER, SELFPAY | PROVIDERS: Visit Provider Radiology Diagnostic Radiology | DX: R10.9 Unspecified abdominal pain (principal); I25.10 Atherosclerotic heart disease of native coronary artery without angina pectoris; R07.9 Chest pain, unspecified | CPT/HCPCS: 71046; 71275; 74177 ==

== ENCOUNTER 2025-03-18 16:36 | Emergency (ER) | payer OTHER, SELFPAY ==
[2025-03-18 17:09] VITALS: BP 107/62; PULSE 97; RESP 18; TEMP 37.2; O2SAT 95; BMI 29.4
--- NOTE | 2025-03-18 17:14 | ECG_ITS ---
Test Reason : ap Blood Pressure : */* mmHG Vent. Rate : 88 BPM Atrial Rate : 88 BPM P-R Int : 172 ms QRS Dur : 82 ms QT Int : 358 ms P-R-T Axes : 39 5 38 degrees QTcB Int : 433 ms Normal sinus rhythm Possible Inferior infarct , age undetermined Abnormal ECG When compared with ECG of 16-Mar-2025 13:15, No significant change was found Referred By: Chaka Bailey Electronically Signed By: Huseyin Flores
--- NOTE | 2025-03-18 17:15 | ED_ITS ---
HPI - General Adult General Chief complaint: Abdominal Pain Stated complaint: abd pain/ seen here 03/16 Time Seen by Provider: 03/18/25 21:21 Source: patient Mode of arrival: ambulatory History of Present Illness ED Provider: HPI narrative: Patient is 64 years old with a history of invasive ductal carcinoma diagnose 02/08, received 1st dose of chemotherapy Carboplatin, Taxotere, Herceptin and pertuzumab on 03/11/2025 comes here for diarrhea for last 2 days and increased epigastric pain symptoms started after chemotherapy patient was seen here on 03/16 for generalized weakness and similar complaints of diarrhea workup was negative patient has received Neulasta on 03/12 Related Data Home Medications ?Medication ?Instructions ?Recorded ?Confirmed amlodipine 2.5 mg tablet 2.5 mg PO DAILY 12/31/24 02/02/25 atorvastatin 40 mg tablet 40 mg PO DAILY 12/31/24 02/02/25 cetirizine 10 mg tablet (Zyrtec) 10 mg PO DAILY PRN yes 12/31/24 02/02/25 cholecalciferol (vitamin D3) 25 25 mcg PO DAILY 12/31/24 02/02/25 mcg (1,000 unit) capsule duloxetine 30 mg capsule,delayed 30 mg PO BID 12/31/24 02/02/25 release empagliflozin 10 mg tablet 10 mg PO DAILY 12/31/24 02/02/25 hydrochlorothiazide 25 mg tablet 25 mg PO DAILY 12/31/24 02/02/25 Vitamin B-12 02/03/25 02/03/25 Vitamin C 02/03/25 losartan 02/03/25 02/03/25 melatonin 10 mg tablet 10 mg PO BEDTIME PRN Insomnia 02/03/25 02/03/25 Previous Rx's ?Medication ?Instructions ?Recorded potassium chloride 20 mEq 20 meq PO DAILY #30 tabs 01/08/25 tablet,extended release cephalexin 500 mg tablet 500 mg PO QID #28 tabs 03/11/25 dexamethasone 4 mg tablet 8 mg (2 x 4 mg) PO BID #30 tabs 03/11/25 methocarbamol 750 mg tablet 750 mg PO Q8H PRN pain #15 tabs 03/16/25 pantoprazole 40 mg tablet,delayed 40 mg PO DAILY #30 tabs 03/18/25 release (Protonix) sucralfate 1 gram tablet 1 g PO TID #90 tabs 03/18/25 lidocaine HCl 2 % mucosal solution 5 ml mucous membrane QID PRN Mouth 03/19/25 (Lidocaine Viscous) Pain #240 mL Allergies Allergy/AdvReac Type Severity Reaction Status Date / Time diphenhydramine Allergy Mild pass out Verified 03/18/25 17:14 [From Benadryl] hydromorphone [From Dilaudid] Allergy Mild Unknown Verified 03/18/25 17:14 latex Allergy Mild Itching Verified 03/18/25 17:14 metformin Allergy Mild Unknown Verified 03/18/25 17:14 morphine Allergy Mild Anaphylaxis Verified 03/18/25 17:14 omeprazole Allergy Mild Unknown Verified 03/18/25 17:14 Review of Systems 2 Review of Systems: Yes all other systems are reviewed and are negative [facility] Past Medical History Surgical History History of excision of pilonidal cyst Hx of hysterectomy (2006) Hx of cataract surgery Social History Social History Household Members: Spouse Housing: House Do you presently have visiting nurse or other home services: No Alcohol intake: current Alcohol intake frequency: holidays/special occasions only Tobacco use type: Cigarette Second Hand Smoke Exposure: No Advance Directives: Yes Advance Directives on File: Yes Advance Directives Date on File: 01/13/25 Do you have a plan to hurt others: No Plan service: No Current occupational status: unemployed and disabled Physical Exam ED Vital Signs: Vital Signs - 24 hr 03/18/25 21:29 03/18/25 21:58 03/19/25 00:15 Temperature 98.4 F Pulse Rate 99 94 102 H Respiratory Rate 18 16 18 Blood Pressure 129/69 125/67 136/74 Pulse Oximetry 99 99 97 Oxygen Delivery Method Room Air Room Air Room Air 03/19/25 00:31 Temperature 98.4 F Pulse Rate 102 H Respiratory Rate 18 Blood Pressure 136/74 Pulse Oximetry 97 Oxygen Delivery Method Room Air BMI result Body Mass Index 29.4 Appearance: Alert. Oriented X3. No acute distress. Eyes: PERRLA, No Nystagmus ENT: Pharynx normal. Oral Mucosa dry Neck: Normal inspection. Neck supple. CVS: Normal heart rate and rhythm. Pulses normal. Respiratory: No respiratory distress. Equal air entry bilateral, no wheezing/rales/rhonchi Abdomen: Soft and tenderness in epigastric area. Bowel sounds are present, no mass palpable, no CVA tenderness Skin: Skin warm and dry. Normal skin color. Normal skin turgor. Extremities: No lower extremity edema. No calf tenderness Neuro: Oriented X 3. No motor deficit. No sensory deficit.No cerebellar signs , cranial nerves II-XII intact Course Course Course Narrative: RME: 64 yold female presents to the ED for epgastric abdominal pain described as acid burning sensation, nausea, and vomitting. positive for epigatric tenderness. labs EkG ordered Medications Administered Discontinued Medications Generic Name Dose Route Start Last Admin Trade Name Freq PRN Reason Stop Dose Admin Al Hydroxide/Mg Hydroxide 30 ml 03/18/25 21:40 03/18/25 21:57 Magnesium Hydrox/Alum Hydrox 30 Ml Oral.Susp PO 03/18/25 21:41 30 ml ONCE ONE Administration Famotidine 20 mg 03/18/25 21:40 03/18/25 21:57 Famotidine/Pf 20 Mg/2 Ml Vial IVPUSH 03/18/25 21:41 20 mg ONCE ONE Administration Sodium Chloride 1,000 mls @ 999 mls/hr 03/18/25 21:28 03/18/25 23:07 Ns IV 03/18/25 22:28 Infused .Q1H1M ONE Infusion Lidocaine HCl 15 ml 03/18/25 21:40 03/18/25 21:57 Lidocaine Hcl Viscous 2 % 15 Ml Solution MUCOUS MEM 03/18/25 21:41 15 ml ONCE ONE Administration Medical Decision Making Medical Decision Making [facility] Narrative: Patient likely with chemotherapy-induced esophagitis/gastritis improved after Maalox and Pepcid was able to take p.o. fluids patient's labs showed leukocytosis secondary to Neulasta which she received post chemotherapy patient advised to follow up with oncologist and if the symptoms continues follow up with GI Lab Data [facility] Lab Attestation statement: I reviewed the patient's lab results. 03/18/25 17:42 03/18/25 17:42 Labs: Lab Results 03/18/25 03/18/25 Range/Units 17:42 21:48 WBC 26.8 H (4.8-10.8) X10*3/uL RBC 5.23 (4.20-5.50) X10*6/uL Hgb 15.5 (12.0-16.0) g/dl Hct 47.6 H (37.0-47.0) % MCV 91.0 (80.0-98.0) fL MCH 29.6 (27.0-33.0) pg MCHC 32.6 (31.0-35.0) g/dl RDW 12.7 (11.0-16.0) % Plt Count 172 D (160-400) X10*3/uL MPV 10.7 (9.4-12.3) fL Immature Gran % (Auto) Cancelled Neut % (Auto) Cancelled Lymph % (Auto) Cancelled [place] % (Auto) Cancelled Eos % (Auto) Cancelled Baso % (Auto) Cancelled Lymph # (Auto) Cancelled [place] # (Auto) Cancelled Eos # (Auto) Cancelled Baso # (Auto) Cancelled Abs Immat Gran (auto) Cancelled Absolute Neuts (auto) Cancelled Absolute Nucleated RBC 0.000 (0.0-0.012) X10*3/uL Nucleated RBC % (auto) 0.0 (0.0-0.2) /100WBC Neutrophils % (Manual) 76 H (45-73) % Band Neutrophils % 5 (3-5) % Lymphocytes % (Manual) 10 L (20-40) % Monocytes % (Manual) 9 (2-11) % Abs Neuts (Manual) 21.7 H (2.0-8.3) X10*3/uL Lymphocytes # (Manual) 2.7 (1.2-4.9) X10*3/uL Monocytes # (Manual) 2.4 H (0.1-1.2) X10*3/uL Toxic Vacuolation PRESENT Platelet Estimate NORMAL (NORMAL) Plt Morphology Comment NORMAL RBC Morphology NORMAL PT 10.8 L (10.9-12.4) SEC INR 0.9 (0.9-1.1) APTT 32.0 (26.0-36.8) SEC Sodium 134 L (135-145) mmol/L Potassium 5.0 (3.3-5.1) mmol/L Chloride 102 (96-108) mmol/L Carbon Dioxide 21 L (22-29) mmol/L Anion Gap 16 (12-20) BUN 14 (9-16) mg/dL Creatinine 0.73 (0.5-1.4) mg/dL Estim Creat Clear Calc 70.8 Estimated GFR > 60 Random Glucose 251 H (60-115) mg/dL Calcium 9.0 (8.4-10.2) mg/dL Total Bilirubin 0.4 (0.0-1.0) mg/dL AST 21 (5-31) U/L ALT 29 (0-31) U/L Alkaline Phosphatase 131 H (39-117) U/L Troponin I High Sens 19.2 H 18.7 H (<3.5-17.0) ng/L Total Protein 6.9 (6.5-8.0) g/dL Albumin 4.0 (3.5-5.0) g/dL Urine Color Yellow Urine Appearance Clear Urine pH 5.5 (5.0-9.0) Ur Specific [place] >= 1.030 H (1.005-1.025) Urine Protein Negative (Neg-Trace) mg/dL Urine Glucose (UA) >=1000 H (Negative) mg/dL Urine Ketones Trace (Negative) mg/dL Urine Blood Small (1+) H (Negative) Urine Nitrite Negative (Negative) Ur Leukocyte Esterase Negative (Negative) Urine RBC 3-5 H (0-2) /HPF Urine WBC 6-10 H (0-5) /HPF Ur Squamous Epith Cells 0-2 (0-2) /HPF Urine Bacteria None Seen (None Seen) Hyaline Casts 0-2 (0-2) /LPF Discharge Plan Discharge Clinical Impression: Gastritis Patient Disposition: Home, Self-Care Instructions: Gastritis (ED) Additional Instructions: Likely have inflammation of esophageal and stomach lining from chemotherapy and steroids Start taking Protonix daily Sucralfate 1 tablet half an hour prior to having meals Follow up with your oncologist/PCP Prescriptions: New pantoprazole [Protonix] 40 mg tablet,delayed release (DR/EC) 40 mg PO DAILY Qty: 30 0RF sucralfate 1 gram tablet 1 g PO TID Qty: 90 0RF No Action melatonin 10 mg Tablet 10 mg PO BEDTIME PRN (Reason: Insomnia) Vitamin B-12 Vitamin C losartan methocarbamol 750 mg tablet 750 mg PO Q8H PRN (Reason: pain) Qty: 15 0RF potassium chloride 20 mEq Tablet Extended Release 20 meq PO DAILY Qty: 30 2RF cephalexin 500 mg Tablet 500 mg PO QID Qty: 28 0RF dexamethasone 4 mg Tablet 8 mg PO BID Qty: 30 1RF Rx Instructions: Take twice a day for 3 days starting the day before chemotherapy. lidocaine HCl [Lidocaine Viscous] 2 % Solution 5 ml MUCOUS MEMBRANE QID PRN (Reason: Mouth Pain) Qty: 240 0RF Rx Instructions: Swish 5 mL of lidocaine viscous around gently for 30 seconds to 1 minute, making sure to coat all sore areas then spit it out. amlodipine 2.5 mg tablet 2.5 mg PO DAILY atorvastatin 40 mg tablet 40 mg PO DAILY empagliflozin 10 mg tablet 10 mg PO DAILY hydrochlorothiazide 25 mg tablet 25 mg PO DAILY cholecalciferol (vitamin D3) 25 mcg (1,000 unit) capsule 25 mcg PO DAILY cetirizine [Zyrtec] 10 mg tablet 10 mg PO DAILY PRN (Reason: yes) duloxetine 30 mg capsule,delayed release(DR/EC) 30 mg PO BID Interventions: ED Discharge Assessment Last Done: 03/19/25 00:31 Discharge Date/Time: 03/19/25 00:32 Print Language: Welsh
[2025-03-18 17:55] LABS: Hematocrit 47.6 % (37.0-47.0); Hemoglobin 15.5 g/dl (12.0-16.0); Mean Corpuscular HGB Conc 32.6 g/dl (31.0-35.0); Mean Corpuscular Hemoglobin 29.6 pg (27.0-33.0); Mean Platelet Volume 10.7 fL (9.4-12.3); Platelet Count 172 X10*3/uL (160-400); Red Blood Count 5.23 X10*6/uL (4.20-5.50); Red Cell Distribution Width 12.7 % (11.0-16.0)
[2025-03-18 17:57] LABS: Appearance Urine Clear; Color Urine Yellow; Glucose Urine UA >=1000 mg/dL (Negative); Leukocyte Esterase Urine Negative (Negative); Nitrite Urine Negative (Negative); PH 5.5 (5.0-9.0); Specific Gravity - Urine >= 1.030 (1.005-1.025); UMIC TRIGGER UACC YES; Urine Blood Small (1+) (Negative); Urine Ketones Trace mg/dL (Negative); Urine Protein Negative (Neg-Trace)
[2025-03-18 17:58] LABS: WBC ABN SCTR FOR CBC 1
[2025-03-18 18:04] LABS: Alanine Aminotransferase 29 U/L (0-31); Alkaline Phosphatase 131 U/L (39-117); Anion Gap 16 (12-20); Aspartate Amino Transferase 21 U/L (5-31); Bilirubin Total 0.4 mg/dL (0.0-1.0); Blood Urea Nitrogen 14 mg/dL (9-16); Carbon Dioxide 21 mmol/L (22-29); Chloride 102 mmol/L (96-108); Creatinine Clr Calc Pharmacy 70.8; Estimated Glomerular Filt Rate > 60; Glucose Random 251 mg/dL (60-115); Sodium 134 mmol/L (135-145); Total Protein 6.9 g/dL (6.5-8.0)
[2025-03-18 18:10] LABS: Bacteria Urine None Seen (None Seen); Hyaline Casts Urine 0-2 /LPF (0-2); Squamous Epithelial Cell Urine 0-2 /HPF (0-2); UACC Culture Trigger YES
[2025-03-18 18:11] LABS: Troponin-I High Sensitivity 19.2 ng/L (<3.5-17.0)
[2025-03-18 18:12] LABS: INTERNATIONAL NORM RATIO 0.9 (0.9-1.1); Prothrombin Time 10.8 SEC (10.9-12.4)
[2025-03-18 18:45] LABS: Band Neutrophils Percent 5 % (3-5); Lymphocytes Percent Manual 10 % (20-40); Monocytes Percent Manual 9 % (2-11); Neutrophils Percent Manual 76 % (45-73)
[2025-03-18 18:50] LABS: Toxic Vacuolation PRESENT
[2025-03-18 18:59] LABS: Platelet Estimate NORMAL (NORMAL); Platelet Morphology Comment NORMAL; RBC Morphology NORMAL
[2025-03-18 19:01] LABS: Lymphocytes Absolute Manual 2.7 X10*3/uL (1.2-4.9); Monocytes Absolute Manual 2.4 X10*3/uL (0.1-1.2); Neutrophils Absolute Manual 21.7 X10*3/uL (2.0-8.3); White Blood Count 26.8 X10*3/uL (4.8-10.8)
[2025-03-18 21:29] VITALS: BP 129/69; PULSE 99; RESP 18; O2SAT 99
[2025-03-18] MEDS: 0.9 % Sodium Chloride 1,000 ML 999 ML IV (21:49)
[2025-03-18] MEDS: Famotidine/PF 20 MG/2 ML VIAL IVPUSH (21:57)
[2025-03-18] MEDS: Magnesium Hydrox/Alum Hydrox 30 ML ORAL.SUSP PO (21:57)
[2025-03-18] MEDS: Lidocaine HCl Viscous 2 % 15 ML SOLUTION MUCOUS MEM (21:57)
[2025-03-18 21:58] VITALS: BP 125/67; PULSE 94; RESP 16; O2SAT 99
[2025-03-18 22:16] LABS: Troponin-I High Sensitivity 18.7 ng/L (<3.5-17.0)
--- NOTE | 2025-03-18 22:30 | PC.NURSE ---
Patient is 64 years old with a history of invasive ductal carcinoma diagnose 02/08, received 1st dose of chemotherapy on 03/11/2025 comes here for diarrhea for last 2 days and increased epigastric pain symptoms started after chemotherapy. History of benigh brain tumor as well. Alert and oriented. Family at the bedside. Respirations even and non-labored. Abdomen soft, with positive bowel sounds. C/o epigastric pain with assoc nausea. Positive pedal pulses with LE edema noted.
--- NOTE | 2025-03-18 23:08 | PC.NURSE ---
this rn assumed care of pt, pt resting in stretcher, no acute distress noted. pt fluids completed at this time.
--- NOTE | 2025-03-18 23:09 | PC.NURSE ---
pt given pudding by provider at this time, pt tolerated well. denies n/v/d and any abdominal pain. reports pain medications helped.
[2025-03-19 00:15] VITALS: BP 136/74; PULSE 102; RESP 18; TEMP 36.9; O2SAT 97
[2025-03-19 00:31] VITALS: BP 136/74; PULSE 102; RESP 18; TEMP 36.9; O2SAT 97
== END 2025-03-19 00:32 | disposition home or self-care (01) ==
PROVIDERS: Physician Assistant; Emergency Provider Internal Medicine
DX: K29.70 Gastritis, unspecified, without bleeding (principal); R10.2 Pelvic and perineal pain; R94.31 Abnormal electrocardiogram [ECG] [EKG]; R11.2 Nausea with vomiting, unspecified; Z79.899 Other long term (current) drug therapy
CPT/HCPCS: 36415; 80053; 81001; 84484; 85007; 85027; 85610; 85730; 87086; 93005; 96361; 96374; 99284; 99285; J1308

== ENCOUNTER → 2025-03-18 17:14 | Outpatient (BNV) | payer OTHER, SELFPAY | PROVIDERS: Emergency Provider Internal Medicine; Visit Provider Internal Medicine Cardiovascular Disease | DX: R94.31 Abnormal electrocardiogram [ECG] [EKG] (principal); R10.9 Unspecified abdominal pain | CPT/HCPCS: 93010 ==

== ENCOUNTER 2025-03-27 10:27 | Emergency (ER) | payer OTHER, SELFPAY ==
[2025-03-27 10:30] VITALS: BP 109/73; PULSE 90; RESP 14; TEMP 36.8; O2SAT 99; BMI 29.1
--- NOTE | 2025-03-27 10:50 | ED.GENADULT ---
HPI - General Adult General Chief complaint: General Medical Stated complaint: breast cx drainage from breast Time Seen by Provider: 03/27/25 10:49 History of Present Illness ED Provider: edna HPI narrative: 64 on chemo with IR-placed L chest port. Patient has concern of ?deep? infection because she has diabetes. She has had a little bit of clear drainage last night from the area. No fever or other constitutional symptoms. Related Data Home Medications ?Medication ?Instructions ?Recorded ?Confirmed amlodipine 2.5 mg tablet 2.5 mg PO DAILY 12/31/24 02/02/25 atorvastatin 40 mg tablet 40 mg PO DAILY 12/31/24 02/02/25 cetirizine 10 mg tablet (Zyrtec) 10 mg PO DAILY PRN yes 12/31/24 02/02/25 cholecalciferol (vitamin D3) 25 25 mcg PO DAILY 12/31/24 02/02/25 mcg (1,000 unit) capsule duloxetine 30 mg capsule,delayed 30 mg PO BID 12/31/24 02/02/25 release empagliflozin 10 mg tablet 10 mg PO DAILY 12/31/24 02/02/25 hydrochlorothiazide 25 mg tablet 25 mg PO DAILY 12/31/24 02/02/25 Vitamin B-12 02/03/25 02/03/25 Vitamin C 02/03/25 losartan 02/03/25 02/03/25 melatonin 10 mg tablet 10 mg PO BEDTIME PRN Insomnia 02/03/25 02/03/25 Previous Rx's ?Medication ?Instructions ?Recorded potassium chloride 20 mEq 20 meq PO DAILY #30 tabs 01/08/25 tablet,extended release cephalexin 500 mg tablet 500 mg PO QID #28 tabs 03/11/25 dexamethasone 4 mg tablet 8 mg (2 x 4 mg) PO BID #30 tabs 03/11/25 methocarbamol 750 mg tablet 750 mg PO Q8H PRN pain #15 tabs 03/16/25 pantoprazole 40 mg tablet,delayed 40 mg PO DAILY #30 tabs 03/18/25 release (Protonix) sucralfate 1 gram tablet 1 g PO TID #90 tabs 03/18/25 lidocaine HCl 2 % mucosal solution 5 ml mucous membrane QID PRN Mouth 03/19/25 (Lidocaine Viscous) Pain #240 mL Magic Mouthwash 10 ml PO QID #240 mL 03/23/25 Diphen/Nystat/Antacid 1:1:1 240 mL suspension loperamide 2 mg capsule (Imodium 2 mg PO Q4H PRN Diarrhea 3 days 03/23/25 A-D) #60 caps Allergies Allergy/AdvReac Type Severity Reaction Status Date / Time diphenhydramine Allergy Mild pass out Verified 03/27/25 10:33 [From Benadryl] hydromorphone [From Dilaudid] Allergy Mild Unknown Verified 03/27/25 10:33 latex Allergy Mild Itching Verified 03/27/25 10:33 metformin Allergy Mild Unknown Verified 03/27/25 10:33 morphine Allergy Mild Anaphylaxis Verified 03/27/25 10:33 omeprazole Allergy Mild Unknown Verified 03/27/25 10:33 PMFSH Past Medical History Surgical History History of excision of pilonidal cyst Hx of hysterectomy (2006) Hx of cataract surgery Social History Social History Household Members: Spouse Housing: House Do you presently have visiting nurse or other home services: No Alcohol intake: current Alcohol intake frequency: holidays/special occasions only Tobacco use type: Cigarette Second Hand Smoke Exposure: No Advance Directives: Yes Advance Directives on File: Yes Advance Directives Date on File: 01/13/25 Do you have a plan to hurt others: No Plan service: No Current occupational status: unemployed and disabled Physical Exam ED Vital Signs: Vital Signs - 24 hr 03/27/25 10:30 03/27/25 12:00 03/27/25 13:33 Temperature 98.3 F 97.4 F 97.4 F Pulse Rate 90 90 90 Respiratory Rate 14 16 16 Blood Pressure 109/73 110/65 110/65 Pulse Oximetry 99 98 98 Oxygen Delivery Method Room Air Room Air Room Air BMI result Body Mass Index 29.1 Const Other: EXAM: Gen: Alert, awake, well appearing, well hydrated. Head: Atraumatic Eyes: Anicteric, Normal conjunctiva. ENT: Moist mucosa, no pallor. ? Neck: Supple. Chest wall: No erythema no expressible purulence. Chronic appearing break in the skin overlying the port. Respiratory: Breathing comfortably, No distress.Clear to auscultation bilaterally, symmetric chest expansion, No wheeze, rales, ronchi. Cardiovascular: Regular rate and rhythm. No murmurs or rub. Well perfused periphery, warm extremities. No edema. ? Abdominal: Soft, no objective distension. No palpable masses or obvious organomegaly. No focal tenderness, no guarding, no rebound tenderness or other peritoneal findings. : No flank tenderness. Neuro: Alert. Gross movement of all extremities intact. ? Vital signs: See flowsheet Medical Decision Making Medical Decision Making MDM Narrative: 64-YEAR-OLD FEMALE DIABETIC UNDERGOING BREAST CANCER TREATMENT CHEMOTHERAPY. PERSISTENT MILD CLEAR YELLOWISH DRAINAGE FROM SITE OF THE PORT PLACEMENT WHICH IS NOT BEING USED BY INFUSION CENTER. SHE HAS NO FEVER THE SURROUNDING AREA IS NOT RED WARM OR FLUCTUANT. SHE HAS NO OTHER INFECTIOUS SYMPTOMATOLOGY AND HER CBC AND INFECTIOUS MARKERS ARE REASSURING. I TRIED TO REASSURE THE PATIENT I HAVE SENT THIS ED NOTE TO HER PROVIDERS FOR HER TO FOLLOW UP AND COVERED THE WOUND WITH XEROFORM AND TEGADERM Lab Data 03/27/25 11:48 Labs: Lab Results 03/27/25 Range/Units 11:48 WBC 6.8 (4.8-10.8) X10*3/uL RBC 4.13 L (4.20-5.50) X10*6/uL Hgb 12.5 (12.0-16.0) g/dl Hct 37.9 (37.0-47.0) % MCV 91.8 (80.0-98.0) fL MCH 30.3 (27.0-33.0) pg MCHC 33.0 (31.0-35.0) g/dl RDW 13.0 (11.0-16.0) % Plt Count 201 (160-400) X10*3/uL MPV 9.5 (9.4-12.3) fL Immature Gran % (Auto) 0.3 (0.0-0.4) % Neut % (Auto) 60.4 (45-73) % Lymph % (Auto) 27.1 (20-40) % [place] % (Auto) 6.7 (2-11) % Eos % (Auto) 4.9 H (0-4) % Baso % (Auto) 0.6 (0-2) % Lymph # (Auto) 1.8 (1.2-4.9) X10*3/uL [place] # (Auto) 0.5 (0.1-1.2) X10*3/uL Eos # (Auto) 0.3 (0.0-0.4) X10*3/uL Baso # (Auto) 0.0 (0.0-0.2) X10*3/uL Abs Immat Gran (auto) 0.02 (0.00-0.03) X10*3/uL Absolute Neuts (auto) 4.1 (2.0-8.3) x10*3/uL Absolute Nucleated RBC 0.000 (0.0-0.012) X10*3/uL Nucleated RBC % (auto) 0.0 (0.0-0.2) /100WBC Discharge Plan Discharge Clinical Impression: Vascular port complication Patient Disposition: Home, Self-Care Instructions: Implanted Venous Access Port (DC) Additional Instructions: DISCHARGE DIAGNOSES: Concern for drainage from your port site in the left upper chest No obvious signs of infection superficial or deep HISTORY OF PRESENTATION: 1 day of drainage from the port and left side EMERGENCY DEPARTMENT COURSE,TESTS, TREATMENTS: While in the ED today you had lab work and we covered the port site DISCHARGE MEDICATIONS: ?[We have made no changes to your regular medication regimen] FOLLOW-UP: ?Call your primary or general physician soon as possible to discuss your symptoms, your ED visit and to discuss follow up plans Call your oncologist. We would let your oncologist and Dr. Purcell view the note and the photo of the site from your visit today if you need follow up you can contact them INSTRUCTIONS ?& RETURN PRECAUTIONS: If any symptoms change first call your primary physician, if it is after-hours your primary doctors office should have a provider industrial automation specialist you can speak with. If the symptoms are severe or very concerning to you then call 911 or return to the ED. Keep the port site dressed until you see your oncologist Prabhu Mckinney MD Emergency Physician [facility] Prescriptions: No Action melatonin 10 mg Tablet 10 mg PO BEDTIME PRN (Reason: Insomnia) Vitamin B-12 Vitamin C losartan methocarbamol 750 mg tablet 750 mg PO Q8H PRN (Reason: pain) Qty: 15 0RF pantoprazole [Protonix] 40 mg tablet,delayed release (DR/EC) 40 mg PO DAILY Qty: 30 0RF sucralfate 1 gram tablet 1 g PO TID Qty: 90 0RF potassium chloride 20 mEq Tablet Extended Release 20 meq PO DAILY Qty: 30 2RF cephalexin 500 mg Tablet 500 mg PO QID Qty: 28 0RF dexamethasone 4 mg Tablet 8 mg PO BID Qty: 30 1RF Rx Instructions: Take twice a day for 3 days starting the day before chemotherapy. lidocaine HCl [Lidocaine Viscous] 2 % Solution 5 ml MUCOUS MEMBRANE QID PRN (Reason: Mouth Pain) Qty: 240 0RF Rx Instructions: Swish 5 mL of lidocaine viscous around gently for 30 seconds to 1 minute, making sure to coat all sore areas then spit it out. loperamide [Imodium A-D] 2 mg Capsule 2 mg PO Q4H PRN (Reason: Diarrhea) 3 Days Qty: 60 0RF Rx Instructions: administer after each loose stool until symptoms controlled; do not exceed 8 mg per 24 hrs Magic Mouthwash Diphen/Nystat/Antacid 1:1:1 240 mL Suspension 10 ml PO QID Qty: 240 3RF Rx Instructions: nystatin 100,000 unit/mL oral suspension 80 mL; diphenhydramine 12.5 mg/5 mL oral liquid 80 mL; aluminum-mag hydroxide-simethicone 400 mg-400 mg-40 mg/5 mL oral susp 80 mL; Per 240 mL amlodipine 2.5 mg tablet 2.5 mg PO DAILY atorvastatin 40 mg tablet 40 mg PO DAILY empagliflozin 10 mg tablet 10 mg PO DAILY hydrochlorothiazide 25 mg tablet 25 mg PO DAILY cholecalciferol (vitamin D3) 25 mcg (1,000 unit) capsule 25 mcg PO DAILY cetirizine [Zyrtec] 10 mg tablet 10 mg PO DAILY PRN (Reason: yes) duloxetine 30 mg capsule,delayed release(DR/EC) 30 mg PO BID Interventions: ED Discharge Assessment Last Done: 03/27/25 13:33 Discharge Date/Time: 03/27/25 13:34 Print Language: Hebrew
[2025-03-27 11:53] LABS: MANUAL DIFF FLAG NO
[2025-03-27 11:54] LABS: Basophils Percent Auto 0.6 % (0-2); Eosinophils Absolute Auto 0.3 X10*3/uL (0.0-0.4); Eosinophils Percent Auto 4.9 % (0-4); Hematocrit 37.9 % (37.0-47.0); Hemoglobin 12.5 g/dl (12.0-16.0); Imm Gran Abs Auto 0.02 X10*3/uL (0.00-0.03); Imm Gran Pct Auto 0.3 % (0.0-0.4); Lymphocytes Absolute Auto 1.8 X10*3/uL (1.2-4.9); Lymphocytes Percent Auto 27.1 % (20-40); Mean Corpuscular Hemoglobin 30.3 pg (27.0-33.0); Mean Corpuscular Volume 91.8 fL (80.0-98.0); Mean Platelet Volume 9.5 fL (9.4-12.3); Monocytes Absolute Auto 0.5 X10*3/uL (0.1-1.2); Monocytes Percent Auto 6.7 % (2-11); Neutrophils Absolute Auto 4.1 x10*3/uL (2.0-8.3); Neutrophils Percent Auto 60.4 % (45-73); Platelet Count 201 X10*3/uL (160-400); Red Blood Count 4.13 X10*6/uL (4.20-5.50); White Blood Count 6.8 X10*3/uL (4.8-10.8)
[2025-03-27 12:00] VITALS: BP 110/65; PULSE 90; RESP 16; TEMP 36.3; O2SAT 98
[2025-03-27 13:33] VITALS: BP 110/65; PULSE 90; RESP 16; TEMP 36.3; O2SAT 98
[2025-03-29 17:43] LABS: CRP High Sensitivity 2.9 mg/L
== END 2025-03-27 13:34 | disposition home or self-care (01) ==
PROVIDERS: Emergency Provider Emergency Medicine
DX: C50.919 Malignant neoplasm of unspecified site of unspecified female breast (principal); T82.534A Leakage of infusion catheter, initial encounter; Y82.8 Other medical devices associated with adverse incidents; Y92.9 Unspecified place or not applicable; Z79.899 Other long term (current) drug therapy
CPT/HCPCS: 36415; 85025; 86141; 99283

== ENCOUNTER 2025-04-27 09:30 | Outpatient (REF) | payer OTHER, SELFPAY | END 2025-04-27 09:31 | disposition home or self-care (01) | LOC: HO.XRAY 09:30 | PROVIDERS: Visit Provider Nurse Practitioner Family | DX: Z13.89 Encounter for screening for other disorder (principal) ==

== ENCOUNTER → 2025-04-27 09:49 | Outpatient (BNV) | payer OTHER, SELFPAY | PROVIDERS: PCP Nurse Practitioner Family; Referring Provider Nurse Practitioner Family; Visit Provider Radiology Diagnostic Radiology | DX: Z45.2 Encounter for adjustment and management of vascular access device (principal) | CPT/HCPCS: 36598 ==

== ENCOUNTER 2025-05-27 14:58 | Outpatient (AMB) | payer OTHER, SELFPAY ==
--- NOTE | 2025-05-27 15:04 | A.OFFVIS_ITS ---
Vital Signs 05/27/25 15:05 Height 5 ft 1 in Weight 156 lb BMI 29.5 BP 103/61 Blood Pressure Location Rt brachial Position Sitting Pulse 91 Intake Visit Reasons: r breast lump Intake Note: Patient referred by Dr. Vasquez for possible Rt breast lumpectomy. Going through chemotherapy for breast cancer. MM: 02-24-2025 Radiological Metallurgist Required: No Accompanied by: spouse Alverlinda and friend April Allergies diphenhydramine (From Benadryl) Allergy (Mild, Verified 05/27/25 15:10) pass out hydromorphone (From Dilaudid) Allergy (Mild, Verified 05/27/25 15:10) Unknown latex Allergy (Mild, Verified 05/27/25 15:10) Itching metformin Allergy (Mild, Verified 05/27/25 15:10) Unknown morphine Allergy (Mild, Verified 05/27/25 15:10) Anaphylaxis omeprazole Allergy (Mild, Verified 05/27/25 15:10) Unknown HPI HPI r breast lump: Details: 64-year-old female here for a follow-up for her right breast cancer. She apparently had a mammogram last 09/08/2024 showing an ultrasound-guided did biopsy was done at that time and this showed an invasive ductal cancer, ERPR negative, HER2 positive. In view of the large mass, she underwent neoadjuvant chemotherapy. However, she says she has been unable to tolerate this. She gets nauseous, and has diarrhea with her chemotherapy and had been able to complete only about 4 cycles. She does state that the mass has shrunk significantly in the right breast. She has not had any follow up imaging. [facility] Medical History History of brain tumor Insomnia Panic attack Anxiety Fibromyalgia Hypertension Diabetes Surgical History History of excision of pilonidal cyst Hx of hysterectomy (2006) Hx of cataract surgery Social History Household Members: Spouse Housing: House Do you presently have visiting nurse or other home services: No Alcohol intake: current Alcohol intake frequency: holidays/special occasions only Tobacco use type: Cigarette Second Hand Smoke Exposure: No Advance Directives Date on File: 01/13/25 service: No Current occupational status: unemployed and disabled Female Reproductive History Menstrual Age of Menarche: 12 Review of Systems Const Denies chills and Denies fever(s) Card Denies chest pain, Denies dyspnea and Denies dyspnea on exertion Resp Denies cough, Denies dyspnea and Denies dyspnea on exertion GI Denies hematochezia and Denies change in bowel habits Denies hematuria Musc Denies back pain and Denies limited range of motion Neuro Denies focal weakness and Denies convulsions Psych Denies depression and Denies mood swings Physical Exam Vital Signs: Last Vital Signs Pulse 91 05/27/25 15:05 BP 103/61 05/27/25 15:05 BMI result Body Mass Index 29.5 Const General: comfortable and no acute distress Chest Other: No obvious palpable breast masses even on the right side, no axillary lymphadenopathy, no nipple or skin changes Resp Effort & Inspection: normal respiratory effort Cardio Rate: regular rate GI Palpation (GI): Soft to palpation, not firm and nontender Assessment & Plan Assessment & Plan (1) Invasive ductal carcinoma of right breast: Code(s): C50.911 - Malignant neoplasm of unspecified site of right female breast Category: Medical Plan: She had been undergoing neoadjuvant chemotherapy in view of the large size of her mass. She apparently had been unable to tolerate this anymore after 4 cycles. I am going to reimage with an MRI to see how much she has responded to the chemotherapy. I did explain to her briefly the excision of breast conservation therapy with sentinel node biopsy, and full mastectomy with sentinel biopsy depending on the MRI results I will see her in the office after her MRI. I will discuss her case with Dr. Vasquez who has been following her. I will review the rest of her records as well. The patient's family was with her during the discussion. Orders: Orders MR breast RT wo/w con 05/27/25 C50.911 - Malignant neoplasm of unspecified site of right female breast Coding Level of Care Code New Pt Level 4 (19127) Diagnoses Invasive ductal carcinoma of right breast C50.911
[2025-05-27 15:05] VITALS: BP 103/61; PULSE 91; BMI 29.5
== END 2025-05-27 15:39 | disposition home or self-care (01) ==
LOC: HO.HGS 14:58
PROVIDERS: PCP Nurse Practitioner Family; Visit Provider Surgery
DX: C50.911 Malignant neoplasm of unspecified site of right female breast (principal)
CPT/HCPCS: 99204

== ENCOUNTER → 2025-06-03 14:50 | Outpatient (BNV) | payer OTHER, SELFPAY | PROVIDERS: Absent Provider Surgery; PCP Nurse Practitioner Family; Visit Provider Internal Medicine | DX: C50.911 Malignant neoplasm of unspecified site of right female breast (principal) | CPT/HCPCS: 77049 ==

== ENCOUNTER 2025-06-03 14:54 | Outpatient (REF) | payer OTHER, SELFPAY ==
--- NOTE | ~2025-06-03 | MR_ITS ---
EXAMINATION: MR BREAST WITHOUT AND WITH CONTRAST, BILATERAL CLINICAL INFORMATION: Recent right breast ultrasound guided core needle biopsy of a mass with pathology of invasive ductal carcinoma and suspicious for ductal carcinoma in situ. Patient had 4 treatments of chemotherapy and stopped due to clinical symptoms. Benign left MRI guided needle core biopsy. Left breast MRI guided core needle biopsy with benign pathology. COMPARISON: Comparison is made with available prior examinations on PACS. TECHNIQUE: MR imaging of the breast was performed using T1, T2 and fat saturated techniques. Dynamic multiphase imaging was also performed after administration of intravenous gadolinium contrast agent. Computer generated 3-D reconstruction was utilized. FINDINGS: There is heterogeneous fibroglandular breast tissue with marked background enhancement. LEFT BREAST: Status post MRI guided needle core biopsy with benign pathology. No suspicious enhancing masses or areas of nonmass enhancement. No areas of architectural distortion. No internal mammary or axillary adenopathy. RIGHT BREAST: The previously seen enhancing mass consistent with biopsy-proven invasive ductal carcinoma and ductal carcinoma in situ in the lower inner right breast is no longer enhancing and not seen on today's imaging. No suspicious enhancing masses or areas of nonmass enhancement. No internal mammary adenopathy. No axillary adenopathy. Axillary lymph nodes are normal-appearing and are stable from prior. Limited views of the chest and abdomen are unremarkable. MR/MR breast BI wo/w con IMPRESSION: Left: No MRI evidence of malignancy. Right: 1. Biopsy-proven invasive ductal carcinoma ductal carcinoma in the lower inner right breast without underlying enhancing masses or areas of nonmass enhancement remaining on today's imaging. Recommend follow-up with breast surgery and oncology for excision and further management. ASSESSMENT: LEFT BREAST: BI-RADS 2 Benign. RIGHT BREAST: BI-RADS 6 biopsy-proven malignancy. RECOMMENDATIONS: Breast surgical consultation for excision and further management of known right breast biopsy-proven malignancy. Electronically signed by: Paula Wright DO 06/07/2025 08:04 PM EDT
== END 2025-06-03 14:55 | disposition home or self-care (01) ==
LOC: HO.MRI 14:54
PROVIDERS: Absent Provider Surgery; PCP Nurse Practitioner Family; Visit Provider Internal Medicine Medical Oncology
DX: N63.15 Unspecified lump in the right breast, overlapping quadrants (principal); C50.911 Malignant neoplasm of unspecified site of right female breast
CPT/HCPCS: 77048; 77049; A9585

== ENCOUNTER 2025-06-11 07:04 | Outpatient (REF) | payer OTHER, SELFPAY | END 2025-06-11 07:05 | disposition home or self-care (01) | LOC: CF 07:04 | PROVIDERS: PCP Nurse Practitioner Family; Visit Provider Surgery | DX: C50.911 Malignant neoplasm of unspecified site of right female breast (principal) | CPT/HCPCS: 99202 ==

== ENCOUNTER 2025-07-13 13:58 | Outpatient (AMB) | payer OTHER, SELFPAY ==
--- OUTSIDE RECORDS SUMMARY | 2025-02-23 10:30 | XMS_ITS | Encounter Summary ---
Author Name [facility] [place] ([place]) Organization [facility] Address [address] [place] [id number] Care Team Providers Care Board Writer Name Role Phone YAHAIRA ESCALANTE Primary Care Provider Unavailselena martinez Insurance Providers: All historical and current [...] Bueno's Name Patient's Relationship to Policy Bueno [facility] Feb 28, 2004 Jul 01, 2026 [facility] [id number] ЕЛНЕА JORDAN PATIENT [facility] Feb 28, 2004 Jul 01, 2026 [id number] ЕЛЕНА JORDAN PATIENT [facility] W/OME DICAR E Feb 28, 2004 Jul 01, 2026 [facility] [id number] 88 ЕЛЕНА JORDAN PATIENT [facility] Feb 28, 2004 Jul 01, 2026 [id number] KIKO JORDAN JR SPOUSE [facility] Feb 28, 2004 Jul 01, 2026 [id number] [phone] ЕЛЕНА JORDAN PATIENT [facility] Feb 28, 2004 Jul 01, 2026 [id number] ЕЛЕНА JORDAN PATIENT [facility] Jun 18, 2015 Jul 01, 2026 [facility] [id number] SUMMER JORDANTA PATIENT [facility] Jan 19, 2013 Jul 01, 2026 [facility] [id number] SUMMER JORDANTA PATIENT [facility] Sep 22, 2012 Jul 01, 2026 [facility] [id number] SUMMER JORDANTA PATIENT [facility] Sep 22, 2012 Jul 01, 2026 [facility] [id number] 88 JULIAN, ЕЛЕНА PATIENT [facility] Sep 22, 2012 Jul 01, 2026 [facility] [id number] KIKO JORDAN JR SPOUSE [facility] Feb 28, 2004 Jul 01, 2026 [facility] [id number] ЕЛЕНА JORDAN PATIENT [facility]DRA [facility] Jun 18, 2015 [facility] [id number] [phone] ЕЛЕНА JORDAN PATIENT Selected Encounter This section includes the information on record at [place] for the Encounter. Date/Time Encounter Type Encounter Description Reason Provider Source Feb 23, 2025 02:30 PM OFFICE O/P EST MOD 30 MIN [facility] - IND ICD-10-CM F33.8 Other recurrent depressive disorders KENDALL ZHANG Ana Encounter Template Text not used by [place] Assessments - Encounter Diagnoses This section includes the primary and secondary diagnoses documented for the Encounter. Date/Time Primary/Secondary Diagnosis Diagnosis Name Provider Source Feb 23, 2025 03:04 PM PRIMARY Other recurrent depressive disorders AZAEL ZHANG Feb 23, 2025 03:04 PM SECONDARY Generalized anxiety disorder AZAEL ZHANG [...] 20 appointments. The data comes from all [facility]. Appointment Date/Time Appointment Type Appointme nt Facility Name April 08, 2025 03:00 PM AMBULATORY - PSYCHIATRY [facility] Jun 25, 2025 03:00 PM AMBULATORY - PSYCHIATRY [facility] Jun 30, 2025 01:30 PM AMBULATORY - MEDICINE [facility] Aug 25, 2025 03:00 PM AMBULATORY - PSYCHIATRY [facility] Active, Pending, and Scheduled Orders This section includes a listing of several types of active, pending, and scheduled orders, including clinic medications orders, diagnostic test orders, procedure orders and consult orders; where the start date of the order is 45 days before the date of the Encounter or 45 days after the date of theEncounter. The data comes from all [facility]. Test Date/Time Test Type Test Details Facility Name Feb 12, 2025 12:00 AM Laboratory - Chemistry Order LIPID PANEL FASTING BLOOD (SST-SERUM) [facility] Feb 12, 2025 12:00 AM Laboratory - Chemistry Order BASIC METABOLIC PANEL (non-fasting) BLOOD (SST-SERUM) [facility] Feb 12, 2025 12:00 AM Laboratory - Chemistry Order HEMOGLOBIN A1C PANEL BLOOD (LAV-BLOOD) [facility] Feb 12, 2025 12:00 AM Laboratory - Chemistry Order MICROALBUMIN CREATININE RATIO PANEL URINE (RANDOM) [facility] Social History: Smoking Status (Most [...] place. Date/Time Current Smoking Status Seymour romero Jan 24, 2022 02:00 PM [place]-TOBACCO NEVER USED [facility] Tobacco Use History This section includes a history of the smoking, or tobacco-related health factors, that were collected on or before the date of the Encounter. The data comes from the [place] facility where the Encounter took place. Date/Time Smoking Status/Tobacco Use Comment F acility Nov 29, 2015 02:08 PM LIFETIME NON-TOBACCO USER [facility] Advance Directives: All historical and current Section [...] Sep 08, 2009 ADVANCE DIRECTIVE CHOLO CONRAD [facility] Encounter Notes: All associated encounter notes This section contains the clinical notes associated to the Encounter. Date/Time Encounter Note(s) Provider Source Feb 23, 2025 02:32 PM PSYCHIATRY NOTE: LOCAL TITLE: PSYCHIATRY NOTE STANDARD TITLE: PSYCHIATRY NOTE DATE OF NOTE: FEB 23, 2025@14:32 ENTRY DATE: FEB 23, 2025@14:32:12 AUTHOR: AZAEL ZHANG EXP COSIGNER: URGENCY: STATUS: COMPLETED 30 minutes for encounter -- including chart review, interview, charting chart reviewed Patient stable, despite stress of dx/tx of breast cancer (followed at [facility]), followed by primary care. Despite this stress, mood again is reasonalbly good. She denies depression, except occ mild situational sx's. Anxiety improved. Affect brightens appropriately. She denies [...] List is the source for the followin. Infiltrating duct carcinoma of breast 2. Gastroesophageal reflux disease 3. Allergic rhinitis 4. Fibromyalgia 5. Laboratory test result abnormal 6. Shingles 7. Intracranial meningioma 8. Sleep apnea 9. Adjustment disorder with anxious mood (SNOMED CT 05310413) 10. Hydradenitis * 11. Type 2 diabetes mellitus (SNOMED CT 91382826) 12. Insomnia * 13. Hysterectomy * 14. Dizziness * 15. Somatization Disorder 16. Obesity (SNOMED CT 883030387) 17. Headache * 18. Hypertension (SNOMED CT 91342659) 19. Hyperlipidemia (SNOMED CT 80696806) 20. CONRADO - Generalized anxiety disorder (SNOMED CT 18674013) 21. Depression (SNOMED CT 88012728) Active Outpatient Medications (including Supplies): Active Outpatient Medications Status 1) AMLODIPINE BESYLATE 5MG TAB TAKE ONE TABLET BY MOUTH ONCE ACTIVE DAILY FOR BLOOD PRESSURE/HEART, DO NOT TAKE WITH GRAPEFRUIT JUICE Indication: FOR HIGH BLOOD PRESSURE 2) ATENOLOL 100MG TAB TAKE ONE TABLET BY MOUTH AT BEDTIME FOR ACTIVE BLOOD PRESSURE/HEART 3) ATORVASTATIN CALCIUM 40MG TAB TAKE ONE-HALF TABLET BY MOUTH ACTIVE DAILY FOR CHOLESTEROL 4) DULOXETINE HCL 30MG EC CAP TAKE ONE CAPSULE BY MOUTH TWICE ACTIVE (S) DAILY Indication: DEPRESSION 5) EMPAGLIFLOZIN 10MG TAB TAKE ONE TABLET BY MOUTH ONCE DAILY ACTIVE Indication: FOR TYPE 2 DIABETES MELLITUS 6) HYDROCHLOROTHIAZIDE 25MG TAB TAKE ONE TABLET BY MOUTH DAILY ACTIVE TO PREVENT FLUID/CONTROL BLOOD PRESSURE 7) HYDROXYZINE HCL 10MG TAB TAKE ONE TABLET BY MOUTH AT BEDTIME ACTIVE NEEDED FOR Indication: INSOMNIA 8) LOSARTAN 100MG TAB TAKE ONE TABLET BY MOUTH ONCE DAILY FOR ACTIVE (S) BLOOD PRESSURE/HEART 9) OMEPRAZOLE 20MG EC CAP TAKE ONE CAPSULE BY MOUTH EVERY ACTIVE MORNING 30 MINUTES BEFORE BREAKFAST FOR REFLUX 10) SEMAGLUTIDE 1MG/0.75ML INJ PEN 3ML INJECT 1MG SUBCUTANEOUSLY ACTIVE ONCE A WEEK Indication: FOR TYPE 2 DIABETES MELLITUS Active Non-VA Medications Status 1) Non-VA ARTIFICIAL TEARS POLYVINYL ALCOHOL 1 DROP INTO EACH ACTIVE EYE FOUR TIMES A DAY 2) Non-VA ASCORBIC ACID 500MG TAB 500MG BY MOUTH DAILY ACTIVE 3) Non-VA CETIRIZINE HCL 10MG TAB 10MG BY MOUTH ONCE DAILY ACTIVE 4) Non-VA CHOLECALCIF 25MCG (D3-1,000UNIT) TAB 25MCG BY MOUTH ACTIVE ONCE DAILY 5) Non-VA DM 10/GUAIFENESN 100MG/5ML (AF & SF) LIQ 2 ACTIVE TEASPOONFULS BY MOUTH THREE TIMES DAILY NEEDED 6) Non-VA FLUTICASONE PROP 50MCG 120D NASAL INHL 2 SPRAYS INTO ACTIVE EACH NOSTRIL DAILY 7) Non-VA FLUTICASONE PROP 50MCG 120D NASAL INHL 2 SPRAYS INTO ACTIVE EACH NOSTRIL ONCE DAILY 8) Non-VA IBUPROFEN 600MG TAB 600MG BY MOUTH THREE TIMES DAILY ACTIVE NEEDED 9) Non-VA MELATONIN CAP/TAB BY MOUTH ACTIVE 10) Non-VA MULTIVITAMIN W/MINERAL TAB BY MOUTH ACTIVE 20 Total Medications PAST PSYCH MED HX: Pt [...] denied suicidal and violent ideation, but the [place] [facility] information and number were reviewed [...] with the patient. Patient sometimes uses MELATONIN nawu-gak-[id number] for sleep, in addition to hydroxyzine, well-tolerated [...] of active outpatient prescriptions dispensed from this [place] (local) and dispensed from another [place] or [place] facility (remote) as well as [...] whether with a VA or non-VA provider. Depression Screening: Perform PHQ-2 A PHQ-2 screen was performed. The score was 1 which is a negative screen for depression. Over the past two weeks, how often have you been bothered by the following problems? 1. Little interest or pleasure in doing things Not at all 2. Feeling down, depressed, or hopeless Several days Alcohol Use Screen (AUDIT-C): Alcohol Screen: SCREEN FOR ALCOHOL (AUDIT-C) An alcohol screening test (AUDIT-C) was negative (score=1). 1. How often did you have a drink containing alcohol in the past year? Consider a drink to be a 12 ounce can or bottle of regular beer, 8 ounces of malt liquor, a 5 ounce glass of table wine, or a 1.5 ounce shot of liquor (like scotch, gin, or vodka). Monthly or less 2. How many drinks containing alcohol did you have on a typical day when you were drinking in the past year? One or two drinks 3. How often did you have 4 or more drinks on one occasion in the past year? Never /es/ AZAEL ZHANG MD STAFF PSYCHIATRIST Signed: 02/23/2025 15:04 Receipt Acknowledged By: 02/23/2025 15:25 /rajeev/ Shanelle Jason ADVANCED ADULT LITERACY INSTRUCTOR AZAEL ZHANG
--- OUTSIDE RECORDS SUMMARY | 2025-04-05 08:07 | XMS_ITS | Encounter Summary ---
Author Name [facility] [place] Organization [place] Address [address] [place] [address] Care Team Providers Care Sales Representative Business Courses Name Role Phone YAHAIRA ESCALANTE Primary Care [...] Bueno's Name Patient's Relationship to Policy Bueno [facility] Feb 28, 2004 Jul 01, 2026 [facility] [id number] ЕЛЕНА JORDAN PATIENT W/OME DICAR E Feb 28, 2004 Jul 01, 2026 [facility] [id number] ЕЛЕНА JORDAN PATIENT [facility] Feb 28, 2004 Jul 01, 2026 [id number] [phone] KIKO JORDAN JR SPOUSE [facility] Feb 28, 2004 Jul 01, 2026 [id number] ЕЛЕНА JORDAN PATIENT [facility] Feb 28, 2004 Jul 01, 2026 [id number] [phone] ЕЛЕНА JORDAN PATIENT [facility] Feb 28, 2004 Jul 01, 2026 [facility] [id number] [phone] ЕЛЕНА JORDAN PATIENT [facility] Jun 18, 2015 Jul 01, 2026 [facility] [id number] [phone] ЕЕЛНА JORDAN PATIENT [facility] Jan 19, 2013 Jul 01, 2026 [facility] [id number] [phone] 7 ЕЛЕНА JORDAN PATIENT [facility] Sep 22, 2012 Jul 01, 2026 [facility] [id number] ЕЛЕНА JORDAN PATIENT [facility] Sep 22, 2012 Jul 01, 2026 [facility] [id number] KIKO JORDAN JR SPOUSE [facility] Sep 22, 2012 Jul 01, 2026 [facility] [id number] ЕЛЕНА JORDAN PATIENT [facility] Feb 28, 2004 Jul 01, 2026 [facility] [id number] [phone] ЕЛЕНА JORDAN PATIENT [facility]SANDRA MARAN [facility] Jun 18, 2015 [facility] [id number] [phone] 7 ЕЛЕНА JORDAN PATIENT Selected Encounter This section includes the information on record at [place] for the Encounter. Date/Time Encounter Type Encounter Description Reason Pro vider Source April 05, 2025 12:07 PM Outpatient Encounter ADMIN PAT ACTIVTIES (MASNONCT) IHE Encounter Template Text not used by [place] Plan of Treatment: Future Appointments (+ 6 months) and Future Tests (+/- 45 days) The Plan of Treatment section includes future care activities for the patient from all [place] [facility] This section includes future appointments and future orders which are active, pending or scheduled. Future Appointments This section includes appointments that were scheduled to occur 6 months from the date of the Encounter, up to a maximum of 20 appointments. The data comes from all [facility]. Appointment Date/Time Appointment Type Appointme nt Facility Name April 08, 2025 03:00 PM AMBULATORY - PSY[facility]IATRY [facility] Jun 25, 2025 03:00 PM AMBULATORY - PSYCHIATRY [facility] Jun 30, 2025 01:30 PM AMBULATORY - MEDICINE [place] [facility] Aug 25, 2025 03:00 PM AMBULATORY - PSYCHIATRY [facility] Sep 20, 2025 01:30 PM AMBULATORY - MEDICINE [place] [facility] [place] [facility] Social History: Smoking Status (Most current) and Tobacco Use (All prior to encounter date) This section includes the most current, and the historical, smoking and tobacco- related health factors from the [place] facility where the Encounter took place. Current Smoking Status This section includes the most current smoking, or tobacco-related health factor, from the [place] facility where the Encounter took place. Date/Time Current Smoking Status Comment [facility] Dec 09, 2023 01:00 PM VA-TOBACCO NEVER USED [facility] [place] [facility] Tobacco Use History This section includes a history of the smoking, or tobacco-related health factors, that were collected on or before the date of the Encounter. The data comes from the [place] facility where the Encounter took place. Date/Time Smoking Status/Tobacco Use Comment F acility Jan 04, 2023 03:00 PM VA-TOBACCO NEVER USED [facility] [place] [facility] Feb 20, 2021 11:30 AM VA-TOBACCO NEVER USED [facility] [place] [facility] Feb 18, 2020 09:39 AM VA-TOBACCO NEVER USED [facility] [place] [facility] Dec 02, 2018 03:30 PM VA-TOBACCO FORMER USER [facility] [place] [facility] Dec 02, 2018 03:30 PM VA-TOBACCO QUIT 15 YRS OR MORE [facility] [place] [facility] Feb 28, 2018 02:37 PM QUIT TOBACCO USE > 7 YEARS AGO [facility] [place] [facility] Nov 23, 2016 10:49 AM LIFETIME NON-TOBACCO USER [facility] [place] [facility] April 10, 2005 09:23 AM LIFETIME NON-SMOKER [facility] [place] [facility] April 10, 2005 09:23 AM LIFETIME NON-TOBACCO USER [facility] [place] [facility] Advance Directives: All historical and current Section Date Range: From patient's date of to the date document was created. This section includes ALL of a patient's completed or amended VA Advance and Rescinded Directives. The entries below indicate that a directive exists for the patient, but an actual copy is not included with this document. The data comes from all [place] facilities. Date Advance Directives Provider Source Sep 08, 2009 ADVANCE DIRECTIVE CHOLO CONRAD [facility] Encounter Notes: All associated encounter notes This section contains the clinical notes associated to the Encounter. Date/Time Encounter Note(s) Provider Source April 05, 2025 12:39 PM ADDENDUM: LOCAL TITLE: Addendum STANDARD TITLE: ADDENDUM DATE OF NOTE: APRIL 05, 2025@12:39:30 ENTRY DATE: APRIL 05, 2025@12:39:31 AUTHOR: LIUDMILA MARTINEZ COSIGNER: URGENCY: STATUS: COMPLETED Defer to PCP to renew above as CPP cannot follow pt as she is SARAH /rajeev/ LIUDMILA MARTINEZ PHARMD,[facility] CLINICAL PHARMACY PRACTITIONER Signed: 04/05/2025 12:40 Receipt Acknowledged By: 04/15/2025 21:37 /rajeev/ RUBI MCMILLAN Nurse Practitioner ====== --- Original Document --- 04/05/25 V1 PHARMACY CUSTOMER CARE MEDICATION RENEWAL: Date: March Division: [place] Pt referred by Pharmacy Call Center for medication renewal: Non-controlled/maintenan ce medication Medications requested: [id number] EMPAGLIFLOZIN 10MG TAB Defer to primary care provider To be mailed . Please review and renew if appropriate. *This note was generated by [facility] Pharmacy Customer Care. If you have any questions or need assistance, do not contact this author. Please refer all questions to your local, on-site pharmacy departments. /rajeev/ BEN DALLAS CPhT [employer], [place]/Pharmacy Customer Care Signed: 04/05/2025 12:09 Receipt Acknowledged By: 04/05/2025 12:39 /diego MARTINEZ PHARMD,[facility] CLINICAL PHARMACY PRACTITIONER LIUDMILA MARTINEZ [facility] April 05, 2025 12:07 PM PHARMACY NOTE: LOCAL TITLE: V1 PHARMACY CUSTOMER CARE MEDICATION RENEWAL STANDARD TITLE: PHARMACY NOTE DATE OF NOTE: APRIL 05, 2025@12:07 ENTRY DATE: APRIL 05, 2025@12:07:28 AUTHOR: BEN DALLAS EXP COSIGNER: URGENCY: STATUS: COMPLETED V1 PHARMACY CUSTOMER CARE MEDICATION RENEWAL Has ADDENDA Date: March Division: [place] Pt referred by Pharmacy Call Center for medication renewal: Non-controlled/maintenan ce medication Medications requested: [id number] EMPAGLIFLOZIN 10MG TAB Defer to primary care provider To be mailed . Please review and renew if appropriate. *This note was generated by [facility] Pharmacy Customer Care. If you have any questions or need assistance, do not contact this author. Please refer all questions to your local, on-site pharmacy departments. /rajeev/ BEN DALLAS [facility] [place], [place]/Pharmacy Customer Care Signed: 04/05/2025 12:09 Receipt Acknowledged By: 04/05/2025 12:39 /rajeev/ LIUDMILA MARTINEZ PHARMD,[facility] CLIN[facility] PHARMACY PRACTITIONER 04/05/2025 ADDENDUM STATUS: COMPLETED Defer to PCP to renew above as CPP cannot follow pt as she is /diego MARTINEZ PHARMD,[facility] CLINICAL PHARMACY PRACTITIONER Signed: 04/05/2025 12:40 Receipt Acknowledged By: * AWAITING SIGNATURE * YAHAIRA ESCALANTE [facility]
--- OUTSIDE RECORDS SUMMARY | 2025-04-08 11:00 | XMS_ITS | Encounter Summary ---
Author Name [place] Organization [place] Address [address] [place] [id number] Care Team Providers Care Dye Line Operator Name Role Phone YAHAIRA ESCALANTE Primary [...] Patient's Relationship to Policy Bueno [facility] Feb 28, 2004 Jul 01, 2026 [facility] [id number] ЕЛЕНА JORDAN PATIENT [facility] Feb 28, 2004 Jul 01, 2026 [id number] [phone] ЕЛЕНА JORDAN PATIENT [facility] W/OME DICAR E Feb 28, 2004 Jul 01, 2026 [facility] [id number] [phone] ЕЛЕНА JORDAN PATIENT [facility] Feb 28, 2004 Jul 01, 2026 [id number] KIKO JORDAN JR SPOUSE [facility] Feb 28, 2004 Jul 01, 2026 [id number] ЕЛЕНА JORDAN PATIENT [facility] Feb 28, 2004 Jul 01, 2026 [facility] [id number] [phone] ЕЛЕНА JORDAN PATIENT [facility] Jun 18, 2015 Jul 01, 2026 [facility] [id number] SUMMER JORDANTA PATIENT [facility] Jan 19, 2013 Jul 01, 2026 [facility] [id number] 88 ЕЛЕНА JORDAN PATIENT [facility] Sep 22, 2012 Jul 01, 2026 [facility] [id number] 88 ЕЛЕНА JORDAN PATIENT [facility] Sep 22, 2012 Jul 01, 2026 [facility] [id number] KIKO JORDAN JR SPOUSE [facility] Sep 22, 2012 Jul 01, 2026 [facility] [id number] ЕЛЕНА JORDAN PATIENT [facility] Feb 28, 2004 Jul 01, 2026 [facility] [id number] [phone] ЕЛЕНА JORDAN PATIENT [facility]SANDRA MARAN [facility] Jun 18, 2015 [facility] [id number] [phone] ЕЛЕНА JORDAN PATIENT Selected Encounter This section includes the information on record at [place] for the Encounter. Date/Time Encounter Type Encounter Description Reason Pro vider Source April 08, 2025 03:00 PM Outpatient Encounter [facility] Encounter Template Text not used by [place] Plan of Treatment: Future Appointments (+ 6 months) and Future Tests (+/- 45 days) The Plan of Treatment section includes future care activities for the patient from all [place] [facility]. This section includes future appointments and future orders which are active, pending or scheduled. Future Appointments This section includes appointments that were scheduled to occur 6 months from the date of the Encounter, up to a maximum of 20 appointments. The data comes from all [place] treatment facilities. Appointment Date/Time Appointment Type Appointme nt Facility Name Jun 25, 2025 03:00 PM AMBULATORY - PSYCHIATRY [facility] Jun 30, 2025 01:30 PM AMBULATORY - MEDICINE [facility] N[facility] Aug 25, 2025 03:00 PM AMBULATORY - PSYCHIATRY SP [facility] Sep 20, 2025 01:30 PM AMBULATORY - MEDICINE [place] C NTRL [facility] Social History: Smoking Status (Most current) and [...] 24, 2022 02:00 PM VA-TOBACCO NEVER USED [place] Tobacco Use History This section includes a history of the smoking, or tobacco-related health factors, that were collected on or before the date of the Encounter. The data comes from the [place] facility where the Encounter took place. Date/Time Smoking Status/Tobacco Use Comment F acility Nov 29, 2015 02:08 PM LIFETIME NON-TOBACCO USER [place] Advance Directives: All historical and current Section [...] Encounter. Date/Time Encounter Note(s) Provider Source April 08, 2025 03:43 PM CLERICAL NOTE: LOCAL TITLE: APPOINTMENT NO SHOW STANDARD TITLE: CLERICAL NOTE DATE OF NOTE: APRIL 08, 2025@15:43 ENTRY DATE: APRIL 08, 2025@15:43:23 AUTHOR: OSEI RAGLAND EXP COSIGNER: URGENCY: STATUS: COMPLETED Patient Name: ЕЛЕНА JORDAN Patient SSN: [id number] Date and time of Appointment No show : 04/08/25 15:00 PATIENT PHONE - PHONE NUMBER [CELLULAR] - Patient's medical record was reviewed. Follow-up actions were determined and initiated: Please check/complete as applies: [X]Telephoned Directly [ ]Re-scheduled for next available appt [X]Sent a NO-show letter ( must call for appointment) [ ]Other (Emergent/Overbook, etc.): Additional Comments: [place] did not show for this day's initial SW appt here at [facility] - an appt for which was referred for outpt tx. SW called 's cell phone number - no answer and no voice mail set-up yet. SW then telephoned other listed number - again, no answer but SW able to leave general HIPAA-compliant msg to remind of appt and to offer to re-schedule SW appt if [place] remains interested in same. Direct contact information for SW provided in same msg. Future Clinic Visits 06/25/2025 15:00 [facility] PSYTR 3 06/29/2025 14:30 [facility] OPTOMETRY 2 PM 09/20/2025 13:30 NMM PACT 5 [employer]AR[employer] MAKER /rajeev/ POLLY CANSECO, WOOD STOCK BLANK HANDLER Delivery Man Signed: 04/08/2025 15:54 OSEI RAGLAND
--- OUTSIDE RECORDS SUMMARY | 2025-04-12 17:33 | XMS_ITS | Encounter Summary ---
Author Name [place] Organization [place] Address [address] [place] [address] Care Team Providers Care Lieutenant Firefighter Name Role Phone YAHAIRA ESCALANTE Primary Care [...] Bueno's Name Patient's Relationship to Policy Bueno [facility] Feb 28, 2004 Jul 01, 2026 [facility] [id number] ЕЛЕНА JORDAN PATIENT W/OME DICAR E Feb 28, 2004 Jul 01, 2026 [facility] [id number] 88 ЕЛЕНА JORDAN PATIENT [facility] Feb 28, 2004 Jul 01, 2026 [id number] KIKO JORDAN JR SPOUSE [facility] Feb 28, 2004 Jul 01, 2026 [id number] ЕЛЕНА JORDAN PATIENT [facility] Feb 28, 2004 Jul 01, 2026 [id number] 88 ЕЛЕНА JORDAN PATIENT [facility] Feb 28, 2004 Jul 01, [address] [facility] [id number] [phone] ЕЛЕНА JORDAN PATIENT [facility] Jun 18, 2015 Jul 01, 2026 [facility] [id number] [phone] ЕЛЕНА JORDAN PATIENT [facility] Jan 19, 2013 Jul 01, 2026 [facility] [id number] [phone] ЕЛЕНА JORDAN PATIENT [facility] Sep 22, 2012 Jul 01, 2026 [facility] [id number] [phone] ЕЛЕНА JORDAN PATIENT [facility] Sep 22, 2012 Jul 01, 2026 [facility] [id number] [phone] KIKO JORDAN JR SPOUSE [facility] Sep 22, 2012 Jul 01, 2026 [facility] [id number] 88 ЕЛЕНА JORDAN PATIENT [facility] RX [facility] Feb 28, 2004 Jul 01, 2026 [facility] [id number] [phone] ЕЛЕНА JORDAN PATIENT [facility]/SANDRA MARAN [facility] Jun 18, 2015 [facility] [id number] [phone] ЕЛЕНА JORDAN PATIENT Selected Encounter This section includes the information on record at [place] for the Encounter. Date/Time Encounter Type Encounter Description Reason Pro vider Source April 12, 2025 09:33 PM Outpatient Encounter ADMIN PAT ACTIVTIES (MASNONCT) IHE Encounter Template Text not used by [place] Plan of Treatment: Future Appointments (+ 6 months) and Future Tests (+/- 45 days) The Plan of Treatment section includes future care activities for the patient from all [place] [facility]. This section includes future appointments and future orders which are active, pending or scheduled. Future Appointments This section includes appointments that were scheduled to occur 6 months from the date of the Encounter, up to a maximum of 20 appointments. The data comes from all [facility] facilities. Appointment Date/Time Appointment Type Appointme nt Facility Name Jun 25, 2025 03:00 PM AMBULATORY - PSYCHIATRY [facility] Jun 30, 2025 01:30 PM AMBULATORY - MEDICINE [place] [facility] Aug 25, 2025 03:00 PM AMBULATORY - PSYCHIATRY [facility] Sep 20, 2025 01:30 PM AMBULATORY - MEDICINE [place] C [place] [facility] Social History: Smoking Status (Most current) [...] VA-TOBACCO NEVER USED [facility] [place] [facility] Tobacco Use History This section includes a history of the smoking, or tobacco-related health factors, that were collected on or before the date of the Encounter. The data comes from the [place] facility where the Encounter took place. Date/Time Smoking Status/Tobacco Use Comment [facility] Jan 04, 2023 03:00 PM VA-TOBACCO NEVER USED [facility] [facility] Feb 20, 2021 11:30 AM VA-TOBACCO NEVER USED [facility] [facility] Feb 18, 2020 09:39 AM VA-TOBACCO NEVER USED [facility] [place] [facility] Dec 02, 2018 03:30 PM VA-TOBACCO FORMER USER [facility] [place] [facility] Dec 02, 2018 03:30 PM VA-TOBACCO QUIT 15 YRS OR MORE [facility] [place] [facility] Feb 28, 2018 02:37 PM QUIT TOBACCO USE > 7 YEARS AGO [facility] [place] [facility] Nov 23, 2016 10:49 AM LIFETIME NON-TOBACCO USER [facility] [place] [facility] April 10, 2005 09:23 AM LIFETIME NON-SMOKER [facility] [place] [facility] April 10, 2005 09:23 AM LIFETIME NON-TOBACCO USER [facility] [place] [facility] Advance Directives: All historical and current [...] Sep 08, 2009 ADVANCE DIRECTIVE CHOLO CONRAD [facility] Encounter Notes: All associated encounter notes This section contains the clinical notes associated to the Encounter. Date/Time Encounter Note(s) Provider Source April 12, 2025 09:33 PM PHARMACY NOTE: LOCAL TITLE: V1 PHARMACY CUSTOMER CARE MEDICATION RENEWAL STANDARD TITLE: PHARMACY NOTE DATE OF NOTE: APRIL 12, 2025@21:33 ENTRY DATE: APRIL 12, 2025@21:33:25 AUTHOR: SHAILESH CHEW I EXP COSIGNER: URGENCY: STATUS: COMPLETED V1 PHARMACY CUSTOMER CARE MEDICATION RENEWAL Has ADDENDA Date: March Division: [facility] referred by Pharmacy Call Center for medication renewal: Non-controlled/maintenanc e medication Medications requested: [id number] ATORVASTATIN CALCIUM 40MG TAB [id number] EMPAGLIFLOZIN 10MG TAB Defer to primary care provider To be mailed . Please review and renew if appropriate. *This note was generated by [facility]/[place] Pharmacy Customer Care. If you have any questions or need assistance, do not contact this author. Please refer all questions to your local, on-site pharmacy departments. /rajeev/ Shailesh Chew CPhT [employer], [place]/Pharmacy Customer Care Signed: 04/12/2025 21:34 Receipt Acknowledged By: 04/15/2025 21:30 /rajeev/ RUBI MCMILLAN Nurse Practitioner 04/13/2025 08:28 /rajeev/ SIRI LOVELLD,[facility] CLINICAL PHARMACY PRACTITIONER 04/13/2025 11:11 /rajeev/ DENNY MCCLAIN REGISTERED NURSE 04/13/2025 ADDENDUM STATUS: COMPLETED Defer to PCP for renewal of medication as deemed appropraite /diego MCCLAIN REGISTERED NURSE Signed: 04/13/2025 11:11 SHAILESH CHEW I [place] CNTRL [facility]
--- OUTSIDE RECORDS SUMMARY | 2025-06-25 11:00 | XMS_ITS | Encounter Summary ---
Author Name [facility] [place] [facility] Address [address] [place] [id number] Care Team Providers Care Automotive Service Manager Name Role Phone YAHAIRA ESCALANTE Primary [...] Bueno's Name Patient's Relationship to Policy Bueno [facility] Feb 28, 2004 Jul 01, 2026 [facility] [id number] ЕЛЕНА JORDAN PATIENT [facility] Feb 28, 2004 Jul 01, 2026 [id number] [phone] ЕЛЕНА JORDAN PATIENT [facility] W/OME DICAR E Feb 28, 2004 Jul 01, 2026 [facility] [id number] [phone] ЕЛЕНА JORDAN PATIENT [facility] Feb 28, 2004 Jul 01, 2026 [id number] KIKO JORDAN JR [facility] Feb 28, 2004 Jul 01, 2026 [id number] ЕЛЕНА JORDAN PATIENT [facility] Feb 28, 2004 Jul 01, 2026 [facility] [id number] [phone] ЕЛЕНА JORDAN PATIENT [facility] Jun 18, 2015 Jul 01, 2026 [facility] [id number] SUMMER JORDANTA PATIENT [facility] Jan 19, 2013 Jul 01, 2026 [facility] [id number] SUMMER JORDANTA PATIENT [facility] Sep 22, 2012 Jul 01, 2026 [facility] [id number] SUMMER JORDANTA PATIENT [facility] Sep 22, 2012 Jul 01, 2026 [facility] [id number] KIKO JORDAN JR SP[facility] Sep 22, 2012 Jul 01, 2026 [facility] [id number] ЕЛЕНА JORDAN PATIENT [facility] PRESCRIPT [facility] Feb 28, 2004 Jul 01, 2026 [facility] [id number] [phone] ЕЛЕНА JORDAN PATIENT [facility] Jun 18, 2015 [facility] [id number] [phone] ЕЛЕНА JORDAN PATIENT Selected Encounter This section includes the information on record at [place] for the Encounter. Date/Time Encounter Type Encounter Description Reason Provider Source Jun 25, 2025 03:00 PM OFFICE O/P EST MOD 30 MIN [facility] - IND ICD-10-CM F33.8 Other recurrent depressive disorders KENDALL ZHANG Ana Encounter Template Text not used by [place] Assessments - Encounter Diagnoses This section includes the primary and secondary diagnoses documented for the Encounter. Date/Time Primary/Secondary Diagnosis Diagnosis Name Provider Source Jun 25, 2025 04:08 PM PRIMARY Other recurrent depressive disorders AZAEL [...] 20 appointments. The data comes from all [place] treatment facilities. Appointment Date/Time Appointment Type Appointme nt Facility Name Jun 30, 2025 01:30 PM AMBULATORY - MEDICINE [facility] Aug 25, 2025 03:00 PM AMBULATORY - PSYCHIATRY [facility] Sep 20, 2025 01:30 PM AMBULATORY - MEDICINE [facility] Social History: Smoking Status (Most current) and [...] 24, 2022 02:00 PM VA-TOBACCO NEVER USED [facility] Tobacco Use History This section includes a history of the smoking, or tobacco-related health factors, that were collected on or before the date of the Encounter. The data comes from the [place] facility where the Encounter took place. Date/Time Smoking Status/Tobacco Use Comment F acility Nov 29, 2015 02:08 PM LIFETIME NON-TOBACCO USER [facility] Advance Directives: All historical and current Section [...] Sep 08, 2009 ADVANCE DIRECTIVE [facility] Encounter Notes: All associated encounter notes This section contains the clinical notes associated to the Encounter. Date/Time Encounter Note(s) Provider Source Jun 25, 2025 03:15 PM PSYCHIATRY NOTE: LOCAL TITLE: PSYCHIATRY NOTE STANDARD TITLE: PSYCHIATRY NOTE DATE OF NOTE: JUN 25, 2025@15:15 ENTRY DATE: JUN 25, 2025@15:16:01 AUTHOR: AZAEL ZHANG EXP COSIGNER: URGENCY: STATUS: COMPLETED 35 minutes for encounter -- including chart review, interview, charting chart reviewed Patient stable, despite stress of dx/tx of breast cancer (followed at [facility]), followed by primary care. But she has found chemo theraly difficult and has stopped at least for now, she reports has surgical consult soon. Despite this stress, she reports mood remains reasonably good, especcially as she recovers from the last chemotherapy in May. She denies depression, except occ mild sx's. Anxiety improved. Affect brightens appropriately. She denies SI and violent ideation. Well organized. No h/o psychotic symptoms. No PI or delusions presented. Cognitive exam grossly intact. Good self-care. No slowing noted. Good self care. Has interests, enjoys her and friends. We again reviewed the medications, and the [...] Adjustment disorder with anxious mood (SNOMED CT 17467066) 10. Hydradenitis * 11. Type 2 diabetes mellitus (SNOMED CT 94471308) 12. Insomnia * 13. Hysterectomy * 14. Dizziness * 15. Somatization Disorder 16. Obesity (SNOMED CT 595248209) 17. Headache * 18. Hypertension (SNOMED CT 16912778) 19. Hyperlipidemia (SNOMED CT 17574046) 20. CONRADO - Generalized anxiety disorder (SNOMED CT 73489630) 21. Depression (SNOMED CT 98145176) Active Outpatient Medications (including Supplies): Active Outpatient [...] TAKE ONE CAPSULE BY MOUTH TWICE ACTIVE DAILY Indication: DEPRESSION 5) EMPAGLIFLOZIN 10MG TAB [...] TABLET BY MOUTH ONCE DAILY FOR ACTIVE BLOOD PRESSURE/HEART Active Non-VA Medications Status 1) Non-VA ARTIFICIAL [...] Non-VA MULTIVITAMIN W/MINERAL TAB BY MOUTH ACTIVE 18 Total Medications PAST PSYCH MED HX: Pt [...] PLAN: Careful risk assessment performed. See C-SSRS below. The pt is probably low risk for suicide or violence -- the patient denied suicidal and violent ideation, but the [email or web address] Crisis Line information and number were reviewed w patient as a precaution. The patient also understands to call 911 or to go to ER in the event of an emergency. psychotherapy for anxiety/mood --patient now declines, reports counseling thr [facility] [place] CONTINUE CYMBALTA 30 MG BID, good response for depression and fibromyalgia and anxiety. Patient wants to keep this the same. CONTINUE HYDROXYZINE LOW-DOSE 10 MG NIGHTLY NEEDED INSOMNIA. Good response. Risk of next-day sedation reviewed with the patient. But pt states usually finds a tea helpful for insomnia Patient sometimes uses MELATONIN [id number] for sleep, in addition to hydroxyzine, well-tolerated consider remeron low dose to augment cymbalta (and to help with sleep)- but pt feel she is doing well with current meds, and does not Remeron at this time Return to clinic 2 mo for medication f/u or sooner thr [...] this medication reconciliation. Suicide Screen: C-SSRS Screening Dunn-Suicide Severity Rating Scale (C-SSRS Screener) 1. Over [...] /rajeev/ AZAEL ZHANG MD STAFF PSYCHIATRIST Signed: 06/25/2025 16:08 AZAEL ZHANG
--- OUTSIDE RECORDS SUMMARY | 2025-06-30 09:30 | XMS_ITS | Encounter Summary ---
Author Name [facility] [place] [facility] [place] [facility] [place] Address [address] [place] [address] Care Team Providers Care Gas Well Drilling Manager Name Role Phone YAHAIRA ESCALANTE Primary [...] Bueno's Name Patient's Relationship to Policy Bueno [facility] Feb 28, 2004 Jul 01, 2026 [facility] [id number] ЕЛЕНА JORDAN PATIENT W/OME DICAR E Feb 28, 2004 Jul 01, 2026 [facility] [id number] ЕЛЕНА JORDAN PATIENT [facility] Feb 28, 2004 Jul 01, 2026 [id number] KIKO JORDAN JR SPOUSE [facility] Feb 28, 2004 Jul 01, 2026 [id number] ЕЛЕНА JORDAN PATIENT [facility] Feb 28, 2004 Jul 01, 2026 [id number] ЕЛЕНА JORDAN PATIENT [facility] Feb 28, 2004 Jul 01, 2026 [facility] [id number] [phone] ЕЛЕНА JORDAN PATIENT [facility] Jun 18, 2015 Jul 01, 2026 [facility] [id number] [phone] ЕЛЕНА JORDAN PATIENT [facility] Jan 19, 2013 Jul 01, 2026 [facility] [id number] [id number] [phone] ЕЛЕНА JORDAN PATIENT [facility] Sep 22, 2012 Jul 01, 2026 [facility] [id number] [phone] SUMMER JORDANTA PATIENT [facility] Sep 22, 2012 Jul 01, 2026 [facility] [id number] KIKO JORDAN JR SPOUSE [facility] Sep 22, 2012 Jul 01, 2026 [facility] [id number] [phone] ЕЛЕНА JORDAN PATIENT [facility] Feb 28, 2004 Jul 01, 2026 [facility] [id number] [phone] ЕЛЕНА JORDAN PATIENT [facility]/SANDRA MARAN [facility] Jun 18, 2015 [facility] [id number] [phone] ЕЛЕНА JORDAN PATIENT Selected Encounter This section includes the information on record at [place] for the Encounter. Date/Time Encounter Type Encounter Description Reason Provider Source Jun 30, 2025 01:30 PM OFFICE O/P EST MOD 30 MIN OPTOMETRY ICD-10-CM E11.9 Type 2 diabetes mellitus without complications PAUL ALCANTAR Ana Encounter Template Text not used by [place] Assessments - Encounter Diagnoses This section includes the primary and secondary diagnoses documented for the Encounter. Date/Time Primary/Secondary Diagnosis Diagnosis Name Provider Source Jun 30, 2025 02:34 PM PRIMARY Type 2 diabetes mellitus without complications PAUL ALCANTAR [place] [facility] Jun 30, 2025 02:34 PM SECONDARY Dry eye syndrome of bilateral lacrimal glands PAUL ALCANTAR [facility] Jun 30, 2025 02:34 PM SECONDARY Presence of intraocular lens PAUL ALCANTAR [place] [facility] Plan of Treatment: Future Appointments (+ 6 months) and Future Tests (+/- 45 days) The Plan of Treatment section includes future care activities for the patient from all [place] treatmentfacilities. This section includes future appointments and future orders which are active, pending or scheduled. Future Appointments This section includes appointments that were scheduled to occur 6 months from the date of the Encounter, up to a maximum of 20 appointments. The data comes from all [place] treatment facilities. Appointment Date/Time Appointment Type Appointme nt Facility Name Aug 25, 2025 03:00 PM AMBULATORY - PS[facility]CHIATRY [facility] Sep 20, 2025 01:30 PM AMBULATORY [place]ICINE [place] [facility] Social History: Smoking Status (Most current) and Tobacco Use (All prior to encounter date) This section includes the most current, and the historical, smoking and tobacco- related health factors from the [facility] facility where the Encounter took place. Current Smoking Status This section includes the most current smoking, or tobacco-related health factor, from the [facility] facility where the Encounter took place. Date/Time Current Smoking Status Comment [facility] Dec 09, 2023 01:00 PM VA-TOBACCO NEVER USED [place] [facility] Tobacco Use History This section includes a history of the smoking, or tobacco-related health factors, that were collected on or before the date of the Encounter. The data comes from the [facility] facility where the Encounter took place. Date/Time Smoking Status/Tobacco Use Comment F acility Jan 04, 2023 03:00 PM VA-TOBACCO NEVER USED [place] [facility] Feb 20, 2021 11:30 AM VA-TOBACCO NEVER USED [facility] Feb 18, 2020 09:39 AM VA-TOBACCO NEVER USED [facility] Dec 02, 2018 03:30 PM VA-TOBACCO FORMER USER [place] [facility] Dec 02, 2018 03:30 PM VA-TOBACCO QUIT 15 YRS OR MORE [facility] Feb 28, 2018 02:37 PM QUIT TOBACCO USE > 7 YEARS AGO [place] [facility] [facility] Nov 23, 2016 10:49 AM LIFETIME NON-TOBACCO USER [place] [facility] April 10, 2005 09:23 AM LIFETIME NON-SMOKER [facility] April 10, 2005 09:23 AM LIFETIME NON-TOBACCO USER [facility] Advance Directives: All historical and current Section Date Range: From patient's date of to the date document was created. This section includes ALL of a patient's completed or amended [place] Advance and Rescinded Directives. The entries below indicate that a directive exists for the patient, but an actual copy is not included with this document. The data comes from all [place] facilities. Date Advance Directives Provider Source Sep 08, 2009 ADVANCE DIRECTIVE CHOLO CONRAD [facility] Encounter Notes: All associated encounter notes This section contains the clinical notes associated to the Encounter. Date/Time Encounter Note(s) Provider Source Jun 30, 2025 01:38 PM OPTOMETRY NOTE: LOCAL TITLE: OPTOMETRY NOTE STANDARD TITLE: OPTOMETRY NOTE DATE OF NOTE: JUN 30, 2025@13:38 ENTRY DATE: JUN 30, 2025@13:38:49 AUTHOR: HASMUKH ALCANTAR EXP COSIGNER: URGENCY: STATUS: COMPLETED Active problems - Computerized Problem List is the source for the followin. Infiltrating duct carcinoma of breast 2. Gastroesophageal reflux disease 3. Allergic rhinitis 4. Fibromyalgia 5. Laboratory test result abnormal 6. Shingles 7. Intracranial meningioma 8. Sleep apnea 9. Adjustment disorder with anxious mood (SNOMED CT 74771224) 10. Hydradenitis * 11. Type 2 diabetes mellitus (SNOMED CT 65753087) 12. Insomnia * 13. Hysterectomy * 14. Dizziness * 15. Somatization Disorder 16. Obesity (SNOMED CT 423079083) 17. Headache * 18. Hypertension (SNOMED CT 34219388) 19. Hyperlipidemia (SNOMED CT 75043891) 20. CONRADO - Generalized anxiety disorder (SNOMED CT 55498716) 21. Depression (SNOMED CT 24267985) Active Outpatient Medications (including Supplies): Active Outpatient [...] ONE CAPSULE BY MOUTH TWICE ACTIVE DAILY ### Indication: DEPRESSION 5) EMPAGLIFLOZIN 10MG TAB TAKE [...] TAB BY MOUTH ACTIVE 18 Total Medications Allergies: OMEPRAZOLE, DILAUDID, MORPHINE, ASPIRIN RELATED MEDICATIONS All medications including those prescribed by outside VA's, community providers, and all OTC meds were reviewed and reconciled with patient to the best of their abilities. This 64 year old FEMALE is seen today for comprehensive eye examination. Medical, eye, personal, and social history are all reviewed and is contributory to today's visit for bilateral pseudophakia as well as diabetes without retinopathy or macular edema either eye. She was seen here for follow-up after cataract surgery on September 15, 2024. Her most recent hemoglobin A1c obtained on September 14, 2024 was 8.1. She was diagnosed with this past fall with invasive ductal cell right breast cancer. She has experienced difficulty with chemotherapy which she recently paused in May. She denies any exacerbation and dry eye symptoms with chemotherapy and uses lubricating drops as needed with good effect for dry eye symptoms. Chief Complaint: She is disappointed she needs reading glasses after cataract surgery Vision: With 20/20-2 right eye 20/20 left eye Without Correction Pupils, EOMS, confrontation max are all done and show round reactive pupils without afferent pupillary defect with full extraocular motility and full confrontation max to finger counting each eye Current Wear: OD: OS: Refraction: Deferred OD: OS: Tonometry: 12 OD 12 OS Time: 12:39 PM dilated with tropicamide 1% each eye after dilation warning given and verbal consent obtained from patient. PreTreatment IOP: OD OS Pachymetry: Anterior segment: Lids: Mild dermatochalasis and ptosis right and left upper lid Conj: White and quiet each eye Cornea: Clear centrally with reduced tear break-up time but no staining or pigment stationary binasal pterygia R.L eye AC: Deep and quiet each eye Iris: Normal no NVI each eye Lens: Centered PC IOL each eye Vit: Clear each eye Fundus exam: Dilated: xxx Non dilated: C/D: 0.30 each eye with distinct disc margins, intact rim tissue, good color and no NVD Macula: No lipid, edema, thickening each eye A/V: 1/2 each eye Vessels: Normal each eye Periphery: No NVE, holes, tears, detachments each eye but with fine drusen along arcades each eye as previously noted. Impression: Diabetes without retinopathy or macular edema either eye. Dressed the importance of optimize control of blood sugar, blood pressure and cholesterol with healthy lifestyle. History of semaglutide use without evidence of associated potential ocular complication including early worsening of diabetic retinopathy and nonarteritic anterior ischemic optic neuropathy. Bilateral pseudophakia looks perfect. Bilateral dry eye disease with good effect from use of lubricating drops 2-3 times a day as needed. Bilateral nonmacular drusen along the arcades each eye as previously noted. Plan: Patient education as noted above. Review all exam findings now. Stressed the importance of continued good blood sugar control. Return in 12 months or sooner if need be. Education: Diabetes: Patient was educated regarding diabetes and related ocular complications including retinopathy and cataract formation as well as other related systemic complications. The importance of good blood sugar control, blood sugar testing as recommended by their PCP and the importance of timely follow up were all emphasized. Return to Clinic 12 months or sooner if need be. Ophthalmic medication reconciliation: Lubricating drops 2-3 times a day as needed each eye. Total time spent: Chart review, history, examining and counseling patient, entering orders, medical decision making as well as clinical documentation 31 minutes. Medication Reconciliation: Outpatient: Has the patient been taking medications as documented in the EMLR? YES: The patient has been taking medications as documented in the EMLR. Essential Medication List for Review used to complete this medication reconciliation. INCLUDED IN THIS LIST: Alphabetical list of active outpatient prescriptions dispensed from this [place] (local) and dispensed from another [place] or [facility] facility (remote) as well as inpatient [...] whether with a VA or non-VA provider. JLV Link Data on this list may not be complete. Please check JLV. Allergies/ADRs (Tool #5) FACILITY ALLERGY/ADR -------- [facility] HYDROMORPHONE [facility] MORPHINE [facility] OMEPRAZOLE [facility] ASPIRIN RELATED MEDICATIONS [facility] DILAUDID [facility] MORPHINE [facility] OMEPRAZOLE [facility] NO KNOWN ALLERGIES Med Recon [place] (Tool #1) INCLUDED IN THIS LIST: Alphabetical list of active outpatient prescriptions dispensed from this [place] (local) and dispensed from another [place] or [facility] facility (remote) as well as inpatient orders (local pending and active), local clinic medications, locally documented non-VA medications, and local prescriptions that have or been discontinued in the past 90 days. Non-VA Meds Last Documented On: Jun 02, 2024 NOTE The display of VA prescriptions dispensed from another [place] or [facility] facility (remote) is limited to active outpatient prescription entries matched to National Drug File at the originating site and may not include some items such as investigational drugs, compounds, etc. NOT INCLUDED IN THIS LIST: Medications self-entered by the patient into personal health records (i.e. [employer]) are NOT included in this list. Non-VA medications documented outside this [place], remote inpatient orders (regardless of status) and remote clinic medications are NOT included in this list. The patient and provider must always discuss medications the patient is taking, regardless of where the medication was dispensed or obtained. OUTPT AMLODIPINE BESYLATE 5MG TAB (Status = Active) TAKE ONE TABLET BY MOUTH ONCE DAILY FOR BLOOD PRESSURE/HEART, DO NOT TAKE WITH GRAPE[employer]UIT JUICE Rx# [id number] Last Released: 04/22/25 Qty/Days Supply: Rx Expiration Date: 09/15/25 Refills Remainin Indication: FOR HIGH BLOOD PRESSURE Non-VA ARTIFICIAL TEARS POLYVINYL ALCOHOL INSTILL 1 DROP INTO EACH EYE FOUR TIMES A DAY Patient wants to buy from Non-VA pharmacy. Non-VA ASCORBIC ACID 500MG TAB TAKE ONE TABLET BY MOUTH DAILY OUTPT ATENOLOL 100MG TAB (Status = Active) TAKE ONE TABLET BY MOUTH AT BEDTIME FOR BLOOD PRESSURE/HEART Rx# [id number] Last Released: 06/02/25 Qty/Days Supply: 90/90 Rx Expiration Date: 03/04/26 Refills Remainin OUTPT ATORVASTATIN CALCIUM 40MG TAB (Status = Discontinued) TAKE ONE-HALF TABLET BY MOUTH DAILY FOR CHOLESTEROL Rx# [id number] Last Released: 01/04/25 Qty/Days Supply: 45 Rx Expiration Date: 04/09/25 Refills Remainin OUTPT ATORVASTATIN CALCIUM 40MG TAB (Status = Active) TAKE ONE-HALF TABLET BY MOUTH DAILY FOR CHOLESTEROL Rx# [id number] Last Released: 06/25/25 Qty/Days Supply: 45 Rx Expiration Date: 04/16/26 Refills Remainin Non-VA CETIRIZINE HCL 10MG TAB TAKE ONE TABLET BY MOUTH ONCE DAILY Non-VA medication recommended by VA provider. Non-VA CHOLECALCIF 25MCG (D3-1,000UNIT) TAB TAKE ONE TABLET BY MOUTH ONCE DAILY Non-VA DM 10/GUAIFENESN 100MG/5ML (AF & SF) LIQ TAKE 2 TEASPOONFULS BY MOUTH THREE TIMES DAILY NEEDED Non-VA medication recommended by VA provider. OUTPT DULOXETINE HCL 30MG EC CAP (Status = Discontinued) TAKE ONE CAPSULE BY MOUTH TWICE DAILY DEPRESSION Rx# [id number] Last Released: 05/12/25 Qty/Days Supply: 120/60 Rx Expiration Date: 09/05/25 Refills Remainin Indication: DEPRESSION OUTPT DULOXETINE HCL 30MG EC CAP (Status = Active) TAKE ONE CAPSULE BY MOUTH TWICE DAILY DEPRESSION ### Rx# [id number] Last Released: 06/28/25 Qty/Days Supply: 120/60 Rx Expiration Date: 06/26/26 Refills Remainin Indication: DEPRESSION OUTPT EMPAGLIFLOZIN 10MG TAB (Status = Discontinued) TAKE ONE TABLET BY MOUTH ONCE DAILY FOR TYPE 2 DIABETES MELLITUS Rx# [id number] Last Released: 12/14/24 Qty/Days Supply: 90 Rx Expiration Date: 04/08/25 Refills Remainin Indication: FOR TYPE 2 DIABETES MELLITUS OUTPT EMPAGLIFLOZIN 10MG TAB (Status = Active) TAKE ONE TABLET BY MOUTH ONCE DAILY FOR TYPE 2 DIABETES MELLITUS Rx# [id number] Last Released: 06/26/25 Qty/Days Supply: 90/90 Rx Expiration Date: 04/16/26 Refills Remainin Indication: FOR TYPE 2 DIABETES MELLITUS Non-VA FLUTICASONE PROP 50MCG 120D NASAL INHL INSTILL 2 SPRAYS INTO EACH NOSTRIL DAILY Non-VA medication recommended by VA provider. Non-VA FLUTICASONE PROP 50MCG 120D NASAL INHL INSTILL 2 SPRAYS INTO EACH NOSTRIL ONCE DAILY OUTPT HYDROCHLOROTHIAZIDE 25MG TAB (Status = Active) TAKE ONE TABLET BY MOUTH DAILY TO PREVENT FLUID/CONTROL BLOOD PRESSURE Rx# [id number] Last Released: 04/19/25 Qt Supply: Rx Expiration Date: 03/04/26 Refills Remainin OUTPT HYDROXYZINE HCL 10MG TAB (Status = Active) TAKE ONE TABLET BY MOUTH AT BEDTIME NEEDED FOR INSOMNIA Rx# [id number] Last Released: 07/08/24 Qty/Days Supply: Rx Expiration Date: 07/09/25 Refills Remainin Indication: INSOMNIA Non-VA IBUPROFEN 600MG TAB TAKE ONE TABLET BY MOUTH THREE TIMES A DAY NEEDED OUTPT LOSARTAN 100MG TAB (Status = Active) TAKE ONE TABLET BY MOUTH ONCE DAILY FOR BLOOD PRESSURE/HEART Rx# [id number] Last Released: 03/30/25 Qty/Days Supply: Rx Expiration Date: 01/20/26 Refills Remainin Non-VA MELATONIN CAP/TAB TAKE BY MOUTH Patient wants to buy from Non-VA pharmacy. Non-VA MULTIVITAMIN W/MINERAL TAB TAKE BY MOUTH OUTPT OMEPRAZOLE 20MG EC CAP (Status = ) TAKE ONE CAPSULE BY MOUTH EVERY MORNING 30 MINUTES BEFORE BREAKFAST FOR REFLUX Rx# [id number] Last Released: 04/10/24 Qt/ Supply: Rx Expiration Date: 04/09/25 Refills Remainin OUTPT SEMAGLUTIDE 1MG/0.75ML INJ PEN 3ML (Status = ) INJECT 1MG SUBCUTANEOUSLY ONCE A WEEK Rx# [id number] Last Released: 06/08/24 Qty/Days Supply: 12/15 Rx Expiration Date: 04/16/25 Refills Remainin Indication: FOR TYPE 2 DIABETES MELLITUS SUPPLIES Declines printed copy of medication list now. /rajeev/ Hasmukh Alcantar OD CHIEF OF OPTOMETRY Signed: 06/30/2025 14:34 HASMUKH ALCANTAR [facility]
--- OUTSIDE RECORDS SUMMARY | 2025-07-13 09:54 | XMS_ITS | Continuity of Care Document ---
Author Name [facility] Organization [facility] Care Team Providers Care Quilt Maker Name Role Phone [facility] Unavailable Unavailable Problems Combined list of problems from Department of Defense and Veterans Affairs facilities. It does not include entries that were removed or entered in error. Problem Status Onset Date Problem Type Date of Resolution Comments Source Headache * (ICD-9-CM 784.0) Active 010 Condition [facility] Adjustment disorder with anxious mood (SNOMED CT 27895125) Active Condition [place] Allergic rhinitis Active Condition [facility] Depression (SNOMED CT 18567643) Active Condition Nov 24, 2010 Entered By: [...] CONRADO - Generalized anxiety disorder (SNOMED CT 53270023) Active Condition Mar 12, 2019 Entered By: [...] [facility] Hyperlipidemia (SNOMED CT 84421079) Active Condition [facility] Hypertension (SNOMED CT 49736216) Active Condition [facility] Hysterectomy * (ICD-9-CM 621.8) Active Condition [facility] Hysterectomy * (ICD-9-CM 621.8) Active [...] stable on MRI 01/31, repeat ordered for [facility] Laboratory test result abnormal Active Condition Mar 17, 2015 Entered By: ELTON PICKARD Comment: HAILEY 1: 160 speckled and homogeneous [facility] Obesity (SNOMED CT 419497341) Active Condition [facility] OBSTRUCTIVE SLEEP APNEA Active Condition [facility] Other Specified Aftercare Following Surgery (ICD-9-CM V58.49) Active Condition [facility] Other Specified Preoperative Examination (ICD-9-CM V72.83) Active Condition [facility] Postmenopausal Bleeding Active Condition [facility] Shingles Active Condition [facility] Sleep apnea Active Condition [facility] Somatization Disorder Active Condition [facility] Type 2 diabetes mellitus (SNOMED CT 87212359) Active Condition [facility] Uterine Fibroids Active Condition [facility] Abdominal Pain Inactive Condition 10/28/2010 Jul 09, 2007 Entered By: JSOE DANIEL SHEPARD Comment: egd 05/24 by sreekanth barlow md [phone] negative [facility] Acculturation [...] [facility] Diagnosis: ICD-10-CM E11.9 Type 2 diabetes mellitus without complications Active Diagnosis [facility] Diagnosis: ICD-10-CM 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 [place] Diagnosis: ICD-10-CM Z71.9 Counseling, unspecified Active Diagnosis [facility] Diagnosis: ICD-10-CM Z96.1 Presence of intraocular lens Active Diagnosis [facility] Diagnosis: ICD-10-CM Z23 Encounter for immunization Active Diagnosis [facility] Diagnosis: ICD-10-CM F41.1 Generalized anxiety disorder Active Diagnosis [place] Diagnosis: ICD-10-CM Z13.6 Encounter for screening for cardiovascular disorders Active Diagnosis [facility] Diagnosis: ICD-10-CM H26.8 Other specified cataract [facility] Diagnosis: ICD-10-CM Z71.89 Other specified counseling Active Diagnosis [facility] Diagnosis: ICD-10-CM R21 Rash and other nonspecific skin eruption Active Diagnosis [facility] Diagnosis: ICD-10-CM Z13.89 Encounter for screening for other disorder Active Diagnosis [place] Medications Combined list of outpatient medications from [...] WITH GRAPEFRU IT JUICE ORAL ACTIVE 09/15/2025 [id number] AVA YAHAIRA RADHA 2023 90 [facility] AMLODIPINE BESYLATE 5MG TAB TAKE ONE TABLET BY MOUTH ONCE DAILY FOR BLOOD PRESSURE /HEART, DO NOT TAKE WITH GRAPEFRU IT JUICE ORAL DISCONT [facility] 07/17/2025 [id number] AVA YAHAIRA RADHA 2023 90 [facility] AMLODIPINE BESYLATE 5MG TAB TAKE ONE TABLET BY MOUTH ONCE DAILY FOR BLOOD PRESSURE /HEART, DO NOT TAKE WITH GRAPEFRU IT JUICE ORAL DISCONT [facility] 08/12/2024 [id number] AHMED,MOH AMMED JAWED 2022 90 [facility] ASCORBIC ACID 500MG TAB TAKE ONE TABLET BY MOUTH DAILY ORAL ACTIVE MIHAELA PICKARD 2011 [facility] ATENOLOL 100MG TAB TAKE ONE TABLET BY MOUTH AT BEDTIME FOR BLOOD PRESSURE /HEART ORAL ACTIVE 03/04/2026 [id number] AVA, YAHAIRA RADHA 2024 90 [facility] ATENOLOL 100MG TAB TAKE ONE TABLET BY MOUTH AT BEDTIME FOR BLOOD PRESSURE /HEART ORAL DISCONT INUED 02/25/2025 [id number] 5 AVA, YAHAIRA RADHA 2023 90 [facility] ATORVASTATI N CA 40MG TAB TAKE ONE-HALF TABLET BY MOUTH DAILY FOR CHOLESTE ROL ORAL ACTIVE 04/16/2026 [id number] AVA, YAHAIRA RADHA 2024 45 [facility] ATORVASTATI N CA 40MG TAB TAKE ONE-HALF TABLET BY MOUTH DAILY FOR CHOLESTE ROL ORAL DISCONT INUED 04/09/2025 [id number] AVA, YAHAIRA RADHA 2023 45 [facility] CETIRIZINE HCL 10MG TAB TAKE ONE TABLET BY MOUTH ONCE DAILY ORAL ACTIVE LENORAN ICOLE [facility] CHOLECALCIF ALEX 25MCG (1,000UNIT) TAB TAKE ONE TABLET BY MOUTH ONCE DAILY ORAL ACTIVE LENORAN ICOLE 2020 [facility] DEXTROMETHO RPHAN HBR 10MG/GUAIFE NESIN 100MG/5ML (SF & AF) SYRUP TAKE 2 TEASPOON FULS BY MOUTH THREE TIMES DAILY NEEDED ORAL ACTIVE AZAEL CASTELLON 2017 [facility] DULOXETINE HCL 30MG CAP,EC TAKE ONE CAPSULE BY MOUTH TWICE DAILY DEPRESSI ON ### ORAL ACTIVE 06/26/2026 [id number] Thaddeus ZHANG 2024 120 [place] DULOXETINE HCL 30MG CAP,EC TAKE ONE CAPSULE BY MOUTH TWICE DAILY DEPRESSI ON ORAL DISCONT INUED 09/05/2025 [id number] Thaddeus ZHANG 2023 120 [place] DULOXETINE HCL 30MG CAP,EC TAKE ONE CAPSULE BY MOUTH TWICE DAILY ORAL DISCONT INUED (EDIT) 12/24/2024 [id number] Thaddeus ZHANG 2023 60 [place] EMPAGLIFLOZ IN 10MG TAB TAKE ONE TABLET BY MOUTH ONCE DAILY FOR TYPE 2 DIABETES MELLITUS ORAL ACTIVE 04/16/2026 [id number] AVA, YAHAIRA RADHA 2024 90 [facility] EMPAGLIFLOZ IN 10MG TAB TAKE ONE TABLET BY MOUTH ONCE DAILY FOR TYPE 2 DIABETES MELLITUS ORAL DISCONT INUED 04/08/2025 [id number] ANNALISA MARTINEZ 2023 90 [facility] FLUTICASONE PROPIONATE 50MCG/SPRAY SOLN,NASAL, 16GM INSTILL 2 SPRAYS INTO EACH NOSTRIL ONCE DAILY NASAL ACTIVE Nadja COOLEY 2018 [facility] FLUTICASONE PROPIONATE 50MCG/SPRAY SOLN,NASAL, 16GM INSTILL 2 SPRAYS INTO EACH NOSTRIL DAILY NASAL ACTIVE AZAEL CASTELLON 2017 [facility] HYDROCHLORO THIAZIDE 25MG TAB TAKE ONE TABLET BY MOUTH DAILY TO PREVENT FLUID/CO NTROL BLOOD PRESSURE ORAL ACTIVE 03/04/2026 [id number] AVA, YAHAIRA RADHA 2024 90 [facility] HYDROCHLORO THIAZIDE 25MG TAB TAKE ONE TABLET BY MOUTH DAILY TO PREVENT FLUID/CO NTROL BLOOD PRESSURE ORAL DISCONT INUED 04/25/2025 [id number] AVA, YAHAIRA RADHA 2023 90 [facility] HYDROXYZINE HCL 10MG TAB TAKE ONE TABLET BY MOUTH AT BEDTIME NEEDED FOR INSOMNIA ORAL DISCONT INUED (EDIT) 04/09/2025 [id number] AVA, YAHAIRA RADHA 2023 15 [facility] HYDROXYZINE HCL 10MG TAB TAKE ONE TABLET BY MOUTH AT BEDTIME NEEDED FOR INSOMNIA ORAL 07/09/2025 [id number] Thaddeus ZHANG 2023 30 [place] IBUPROFEN 600MG TAB TAKE ONE TABLET BY MOUTH THREE TIMES A DAY NEEDED ORAL ACTIVE ZACK OVIEDO 2016 [facility] [place] POTASSIUM 100MG TAB TAKE ONE TABLET BY MOUTH ONCE DAILY FOR BLOOD PRESSURE /HEART ORAL ACTIVE 01/20/2026 [id number] 5 AVA, YAHAIRA RADHA 2024 90 [facility] [place] POTASSIUM 100MG TAB TAKE ONE TABLET BY MOUTH ONCE DAILY FOR BLOOD PRESSURE /HEART ORAL DISCONT INUED 04/09/2025 [id number] 5 AVA YAHAIRA RADHA 2023 90 [facility] MELATONIN CAP/TAB TAKE BY MOUTH ORAL ACTIVE Thaddeus ZHANG 2023 [place] MULTIVITAMI N W/MINERAL TAB TAKE BY MOUTH ORAL ACTIVE MIHAELA PICKARD NN S 2014 [facility] POLYVINYL ALCOHOL 1.4% SOLN,OPH INSTILL 1 DROP INTO EACH EYE FOUR TIMES A DAY OPHTHA LMIC ACTIVE Octavio ALCANTAR ICHCHRISTINA 2021 [facility] SEMAGLUTIDE 1MG/0.75ML INJ,SOLN,PE N,3ML INJECT 1MG SUBCUTAN EOUSLY ONCE A WEEK SUBCUT ANEOUS 04/16/2025 [id number] GDULA,JOD I A 2023 1 [facility] TRIAMCINOLO NE ACETONIDE 0.1% OINT,TOP APPLY SMALL AMOUNT TOPICALL Y TWICE DAILY DIRECTED TOPICA L 05/17/2024 [id number] AVA, YAHAIRA RADHA 2023 454 [facility] Allergies, Adverse Reactions, Alerts Combined list of allergies from Department of Defense and Veterans Affairs facilities. It does not include entries that were removed or entered in error. Substance Category Reaction Severity Reaction type Status Date Reported Comments Source ASPIRIN RELATED MEDICATIONS Propensity to adverse reactions to drug (finding) Nausea and vomiting MILD active 4 [facility] DILAUDID Propensity to adverse reactions to drug (finding) Itching, Eruption active 0 [facility] DILAUDID INJECTION 1 MG/ML Propensity to adverse reactions to drug (finding) Nausea and vomiting MODERATE active 9 [facility] MORPHINE Propensity to adverse reactions to drug (finding) Itching SEVERE active 9 [facility] MORPHINE Propensity to adverse reactions to drug (finding) active 0 [facility] OMEPRAZOLE Propensity to adverse reactions to drug (finding) Urticaria active 7 [facility] OMEPRAZOLE Propensity to adverse reactions to drug (finding) active 9 [facility] Immunizations Combined list of available immunizations from the Department of Defense and [facility] Affairs facilities. Immunization Series Date Given Administered By Site Reaction Lot Number CVX Code Drug Cafe Associate Status Comments Source INFLUENZA, SPLIT VIRUS, TRIVALENT, PF 2023 LEVI BETANCUR RIGHT DELTO ID [id number] 140 complet ed [facility] INFLUENZA, INJECTABLE, QUADRIVALENT, PRESERVATIVE FREE 2022 CARLIE KISER RIGHT DELTO ID [id number] 150 complet ed Completed Series, [facility] PNEUMOCOCCAL CONJUGATE PCV20, POLYSACCHARID E [id number] CONJUGATE, ADJUVANT, PF 2022 CARLIE KISER LEFT DELTO ID [id number] 216 complet ed Completed Series, [facility] INFLUENZA, INJECTABLE, QUADRIVALENT, PRESERVATIVE FREE 2021 SUNITA GERARD LEFT DELTO ID [id number] 150 complet ed [facility] COVID-19 (MODERNA), MRNA, LNP-S, PF, 100 MCG OR 50 MCG DOSE 3 2020 207 complet ed MOD; [id number]; 2 [place] INFLUENZA, UNSPECIFIED FORMULATION 2020 88 complet ed [facility] TD (ADULT), 5 LF TETANUS TOXOID, PRESERVATIVE FREE, ADSORBED 2020 113 complet ed [facility] ZOSTER RECOMBINANT 2 2020 187 complet ed [facility] COVID-19 (MODERNA), MRNA, LNP-S, PF, 100 MCG/0.5 ML DOSE 2 2020 207 complet ed MOD; [id number]; 1 [place] COVID-19 (MODERNA), MRNA, LNP-S, PF, 100 MCG/0.5 ML DOSE 1 2020 207 complet ed MOD; [id number]; 1 [place] INFLUENZA, INJECTABLE, QUADRIVALENT, PRESERVATIVE [...] FLU,3 YRS (HISTORICAL) 2008 88 complet ed [facility] FLU,3 YRS (HISTORICAL) 2008 88 [...] Sep 14, 2024 02:24 PM Reporting Lab: [facility] [address] [address] Performing Lab: [facility] [address] [facility] [address] [facility] TRN [facility]USE [facility] MICROALB UMIN CREATINI NE RATIO PANEL MICROALBUM IN/CREATIN INE [MASS RATIO] IN URINE cancmg/g 0 - 29.9 09/14 Specimen Type: URINE No comment entered. Ordering Provider: PUNEET ESCALANTE SA Report Released Date/Time: Sep 14, 2024 02:25 PM Reporting Lab: [facility] [address] [facility] [address] Performing Lab: [facility]ITALRRUSSELL MED[facility] CENTERN [facility] [address] [facility] [address] [facility] MICROALB UMIN CREATINI NE RATIO PANEL MICROALBUM IN [MASS/VOLU ME] IN URINE < 0.5mg/dL 09/14 Specimen Type: URINE No comment entered. Ordering Provider: PUNEET ESCALANTE SA Report Released Date/Time: Sep 14, 2024 02:25 PM Reporting Lab: [facility]ITALRRUS[facility]ENTERN [facility] [address] [facility] [address] Performing Lab: [facility]ITALRR[facility]ERN [facility] [address] [facility] [address] [facility] MICROALB UMIN CREATINI NE RATIO PANEL CREATININE [MASS/VOLU ME] IN URINE 27.03 mg/dL 09/14 Specimen Type: URINE No comment entered. Ordering Provider: PUNEET ESCALANTE SA Report Released Date/Time: Sep 14, 2024 02:25 PM Reporting Lab: [facility]ITALRINFIRMARY WESTTRN [facility] [address] [facility] [address] Performing Lab: [facility]ITALRL [facility]N [address] [address] [facility] HEMOGLOB IN A1C PANEL HEMOGLOBIN A1C/HEMOGL [...] April 17, 2024 01:15 PM Reporting Lab: [facility] [address] [address] Performing Lab: [facility]ITALRRUSSE[facility] CENTERN [address] [address] [facility] BASIC METABOLI C PANEL (non-fas ting) UREA NITROGEN [MASS/VOLU ME] IN SERUM OR PLASMA 15 mg/dL 7 - 25 04/21 Specimen Type: SERUM No comment entered. Ordering Provider: PUNEET ESCALANTE SA Report Released Date/Time: April 17, 2024 01:15 PM Reporting Lab: [facility]ITALRRUS[facility]ENTERN [facility]USE[address] [address] Performing Lab: [facility]ITALRRUSSELL MEDICAL CENTERN [address] [address] [facility] BASIC METABOLI C PANEL (non-fas ting) GLUCOSE [MASS/VOLU ME] IN SERUM OR PLASMA 140 mg/dL 65 - 100 04/21 H Specimen Type: SERUM No comment entered. Ordering Provider: PUNEET ESCALANTE SA Report Released Date/Time: April 17, 2024 01:15 PM Reporting Lab: [facility]ITALRRUSSE[facility] CENTERN [address] [address] Performing Lab: [address] [address] [facility] BASIC METABOLI C PANEL (non-fas ting) SODIUM [MOLES/VOL UME] IN SERUM OR PLASMA 135 mmol/L 135 - 145 04/21 Specimen Type: SERUM No comment entered. Ordering Provider: PUNEET ESCALANTE SA Report Released Date/Time: April 17, 2024 01:15 PM Reporting Lab: [facility] [place] [facility] [address] [facility] [address] Performing Lab: [facility] [place] [facility] [address] [facility] [address] [facility] [facility] BASIC METABOLI C PANEL (non-fas ting) POTASSIUM [MOLES/VOL UME] IN SERUM OR PLASMA 3.9 mmol/L 3.5 - 5.0 04/21 Specimen Type: SERUM No comment entered. Ordering Provider: PUNEET ESCALANTE SA Report Released Date/Time: April 17, 2024 01:15 PM Reporting Lab: [facility] [place] [facility] [address] [facility] [address] Performing Lab: [facility] [place] [facility] [address] [facility] [address] [facility] [facility] BASIC METABOLI C PANEL (non-fas ting) CHLORIDE [MOLES/VOL UME] IN SERUM OR PLASMA 100 mmol/L 100 - 110 04/21 Specimen Type: SERUM No comment entered. Ordering Provider: PUNEET ESCALANTE SA Report Released Date/Time: April 17, 2024 01:15 PM Reporting Lab: [facility] [place] [facility] [address] [facility] [address] Performing Lab: [facility] [place] [address] [address] [facility] [place] [facility] BASIC METABOLI C PANEL (non-fas ting) CARBON DIOXIDE, TOTAL [MOLES/VOL UME] IN SERUM OR PLASMA 26 meq/L 20 - 30 04/21 Specimen Type: SERUM No comment entered. Ordering Provider: PUNEET ESCALANTE SA Report Released Date/Time: April 17, 2024 01:15 PM Reporting Lab: [facility] [place] [facility] [address] [facility] [address] Performing Lab: [facility] [place] [address] [address] [facility] [place] [facility] BASIC METABOLI C PANEL (non-fas ting) CREATININE [MASS/VOLU ME] IN SERUM OR PLASMA 0.69 mg/dL 0.50 - 1.40 04/21 Specimen Type: SERUM No comment entered. Ordering Provider: PUNEET ESCALANTE SA Report Released Date/Time: April 17, 2024 01:15 PM Reporting Lab: [facility] TRN [place] [address] [address] Performing Lab: [facility] [address] [address] [facility] [facility] BASIC METABOLI C PANEL (non-fas ting) GLOMERULAR FILTRATION RATE/1.73 SQ M.PREDICTE D [VOLUME RATE/AREA] IN SERUM, PLASMA OR BLOOD BY CREATININE -BASED FORMULA (CKD-EPI 2020) >90mL/mi n 60 04/21 Specimen Type: SERUM No comment entered. Ordering Provider: PUNEET ESCALANTE SA Report Released Date/Time: April 17, 2024 01:15 PM Reporting Lab: [facility] [place] [place] [address] [address] Performing Lab: [facility]ENTERUSE[address] [address] [facility]ITALRL [facility]N [facility]ENTERUSE [facility] CBC LEUKOCYTES [#/VOLUME] IN BLOOD BY AUTOMATED COUNT 9.47 10*3/uL 4.50 - 11.00 04/21 Specimen Type: BLOOD No comment entered. Ordering Provider: PUNEET ESCALANTE SA Report Released Date/Time: April 17, 2024 01:15 PM Reporting Lab: [facility] [place] [facility] [address] [facility] [address] Performing Lab: [facility]ENTER[facility]ETS [address] [address] [facility]RL [facility]N [facility]USE [facility] CBC ERYTHROCYT ES [#/VOLUME] IN BLOOD BY AUTOMATED COUNT 4.60 10*6/uL 3.93 - 5.16 04/21 Specimen Type: BLOOD No comment entered. Ordering Provider: PUNEET ESCALANTE SA Report Released Date/Time: April 17, 2024 01:15 PM Reporting Lab: [facility] [place] [facility] [address] [facility] [address] Performing Lab: [facility] [place] [facility] [address] [facility] [address] [facility] [place] [facility] CBC HEMOGLOBIN [MASS/VOLU ME] IN BLOOD 13.9 g/dL 12 - 15.2 04/21 Specimen Type: BLOOD No comment entered. Ordering Provider: PUNEET ESCALANTE SA Report Released Date/Time: April 17, 2024 01:15 PM Reporting Lab: [facility] [place] [facility] [address] [facility] [address] Performing Lab: [facility] [place] [facility] [address] [facility] [address] [facility] [place] [facility] CBC HEMATOCRIT [VOLUME FRACTION] OF BLOOD BY AUTOMATED COUNT 42.2 36.6 - 45.6 04/21 Specimen Type: BLOOD No comment entered. Ordering Provider: PUNEET ESCALANTE SA Report Released Date/Time: April 17, 2024 01:15 PM Reporting Lab: [facility] [place] [facility] [address] [facility] [address] Performing Lab: [facility] [place] [facility] [address] [facility] [address] [facility] [place] [facility] CBC MCV [ENTITIC VOLUME] BY AUTOMATED COUNT 91.7 fL 82 - 99 04/21 Specimen Type: BLOOD No comment entered. Ordering Provider: PUNEET ESCALANTE SA Report Released Date/Time: April 17, 2024 01:15 PM Reporting Lab: [facility] [place] [facility] [address] [facility] [address] Performing Lab: [facility] [place] [facility] [address] [facility] [address] [facility] [place] [facility] CBC MCHC [MASS/VOLU ME] BY AUTOMATED COUNT 32.9 g/dL 30.8 - 35.1 04/21 Specimen Type: BLOOD No comment entered. Ordering Provider: PUNEET ESCALANTE SA Report Released Date/Time: April 17, 2024 01:15 PM Reporting Lab: [facility] [place] [facility] [address] [facility] [address] Performing Lab: [facility] [place] [facility] [address] [facility] [address] [facility] [place] [facility] CBC PLATELETS [#/VOLUME] IN BLOOD BY AUTOMATED COUNT 244 10*3/uL 140 - 360 04/21 Specimen Type: BLOOD No comment entered. Ordering Provider: PUNEET ESCALANTE SA Report Released Date/Time: April 17, 2024 01:15 PM Reporting Lab: [facility] [place] [facility] [address] [facility] [address] Performing Lab: [facility] [place] [facility] [address] [facility] [address] [facility] [place] [facility] CBC ERYTHROCYT E DISTRIBUTI ON WIDTH [RATIO] BY AUTOMATED COUNT 12.4 12.0 - 16.0 04/21 Specimen Type: BLOOD No comment entered. Ordering Provider: PUNEET ESCALANTE SA Report Released Date/Time: April 17, 2024 01:15 PM Reporting Lab: [facility] [place] [facility] [address] [facility] [address] Performing Lab: [facility] [place] [place] [facility] [address] [facility] [address] [facility] [place] [facility] CBC MCH [ENTITIC MASS] BY AUTOMATED COUNT 30.2 pg 26.2 - 32.6 04/21 Specimen Type: BLOOD No comment entered. Ordering Provider: PUNEET ESCALANTE SA Report Released Date/Time: April 17, 2024 01:15 PM Reporting Lab: [facility] [place] [facility] [address] [facility] [address] Performing Lab: [facility] [place] [address] [address] [facility] [place] [facility] LYME SEROLOGY PANEL BORRELIA BURGDORFER [...] of the panel were validated at the [facility]. Results are considered [...] Dec 09, 2023 01:48 PM Reporting Lab: [facility] [address] [facility] [address] Performing Lab: [facility] [address] [facility] [address] [facility] LYME SEROLOGY PANEL BORRELIA BURGDORFER I AB [...] of the panel were validated at the [facility]. Results are considered [...] Dec 09, 2023 01:48 PM Reporting Lab: [facility] [address] [facility] [address] Performing Lab: [facility] [address] [facility] [facility] [address] [facility] ANAPLASM A AND EHRLICHI A AB PANEL [...] performance characteris tics have been determined by [employer], [place]. It has not been cleared or [...] performance characteris tics have been determined by [employer] [place], [place]. It has not been cleared or approved by the U.S. Food and Drug Administrat ion. This assay has been validated pursuant to the CLIA regulations and is used for clinical purposes. Test Performed by [facility], [employer] [facility], [address] [place] [address] Chris Bone M.D., Ph.D., Director of Laboratorie s , CLIA [id number] TEST PERFORMED AT: , Ordering Provider: PUNEET ESCALANTE SA Report Released Date/Time: Dec 09, 2023 01:48 PM Reporting Lab: [facility] [address] [facility] [address] Performing Lab: [facility] [address] [address] [facility] ANAPLASM A AND EHRLICHI A AB PANEL [...] performance characteris tics have been determined by [employer], [place]. It has not been cleared or [...] performance characteris tics have been determined by [employer] [place]. It has not been cleared or approved by the U.S. Food and Drug Administrat ion. This assay has been validated pursuant to the CLIA regulations and is used for clinical purposes. Test Performed by [facility], [facility], [address] [place] [address] Chris Bone M.D., Ph.D., Director of Laboratorie s , CLIA [id number] TEST PERFORMED AT: , Ordering Provider: PUNEET ESCALANTE SA Report Released Date/Time: Dec 09, 2023 01:48 PM Reporting Lab: [facility] [address] [facility] [address] Performing Lab: [facility] [address] [address] [facility] [place] ANAPLASM A AND EHRLICHI A AB PANEL [...] performance characteris tics have been determined by [place] It has not been cleared or [...] performance characteris tics have been determined by [place] It has not been cleared or approved by the U.S. Food and Drug Administrat ion. This assay has been validated pursuant to the CLIA regulations and is used for clinical purposes. Test Performed by [facility] [place], [place], [address] [place], [place] Chris Bone M.D., Ph.D., Director of Laboratorie s , CLIA [id number] TEST PERFORMED AT: , Ordering Provider: PUNEET ESCALANTE SA Report Released Date/Time: Dec 09, 2023 01:48 PM Reporting Lab: [facility] [address] [facility] [address] Performing Lab: [facility] [address] [address] [facility] ANAPLASM A AND EHRLICHI A AB PANEL [...] performance characteris tics have been determined by [place]. It has not been cleared or [...] performance characteris tics have been determined by [place] It has not been cleared or approved by the U.S. Food and Drug Administrat ion. This assay has been validated pursuant to the CLIA regulations and is used for clinical purposes. Test Performed by [facility] [place], [place], [address] [place], [place] Chris Bone M.D., Ph.D., Director of Laboratorie s , CLIA [id number] TEST PERFORMED AT: , Ordering Provider: PUNEET ESCALANTE SA Report Released Date/Time: Dec 09, 2023 01:48 PM Reporting Lab: [facility] [address] [facility] [address] Performing Lab: [facility] [address] [address] [facility] ANAPLASM A AND EHRLICHI A AB PANEL [...] performance characteris tics have been determined by [employer] [place]. It has not been cleared or [...] performance characteris tics have been determined by [employer] It has not been cleared or approved by the U.S. Food and Drug Administrat ion. This assay has been validated pursuant to the CLIA regulations and is used for clinical purposes. Test Performed by [facility], [place], [address] [place], [place] Chris Bone M.D., Ph.D., Director of Laboratorie s , CLIA [id number] TEST PERFORMED AT: , Ordering Provider: PUNEET ESCALANTE SA Report Released Date/Time: Dec 09, 2023 01:48 PM Reporting Lab: [facility] [address] [facility] [address] Performing Lab: [facility] [address] [address] [facility] ANAPLASM A AND EHRLICHI A AB PANEL [...] performance characteris tics have been determined by [employer]. It has not been cleared or [...] performance characteris tics have been determined by [employer] [place]. It has not been cleared or approved by the U.S. Food and Drug Administrat ion. This assay has been validated pursuant to the CLIA regulations and is used for clinical purposes. Test Performed by [facility], [employer] [facility], [address] [place] [address] Chris Bone M.D., Ph.D., Director of Laboratorie s , CLIA [id number] TEST PERFORMED AT: , Ordering Provider: PUNEET ESCALANTE SA Report Released Date/Time: Dec 09, 2023 01:48 PM Reporting Lab: [facility] [address] Performing Lab: [facility] [address] [facility] VITAMIN D (25-OH) 25-HYDROXY VITAMIN D3 [MASS/VOLU ME] IN SERUM OR PLASMA 52 ng/mL 20 - 50 12/09 H Specimen Type: SERUM No comment entered. Ordering Provider: PUNEET ESCALANTE SA Report Released Date/Time: Dec 09, 2023 01:48 PM Reporting Lab: [facility] [place] [address] [address] Performing Lab: [facility] [address] [address] [facility] VITAMIN B12 COBALAMIN (VITAMIN B12) [MASS/VOLU ME] IN SERUM OR PLASMA >2000pg/ mL 200 - 900 12/09 H Specimen Type: SERUM No comment entered. Ordering Provider: PUNEET ESCALANTE SA Report Released Date/Time: Dec 09, 2023 01:48 PM Reporting Lab: [facility] [place] [place] [address] Performing Lab: [facility] [place] [facility] [address] [facility] [address] [facility] [place] [facility] HEMOGLOB IN A1C PANEL HEMOGLOBIN A1C/HEMOGL OBIN.TOTAL [...] Dec 09, 2023 01:48 PM Reporting Lab: [facility] [address] [facility] [address] Performing Lab: [facility] [place] [facility] [address] [facility] [address] [facility] [place] [facility] Vital Signs Combined list of inpatient and outpatient Vital Signs from Department of Defense and Veterans Affairs, ranging from 12 months to all on record, depending upon the facility. Vital Sign Value Date Comments Source SYSTOLIC BLOOD PRESSURE 117 09/14/20 24 14:16:41 [facility] [place] [facility] DIASTOLIC BLOOD PRESSURE 76 09/14/ 024 14:16:41 [facility] [place] [facility] PULSE OXIMETRY 96 09/14/2024 14:16:41 [facility] [place] [facility] WEIGHT 164.7 09/14/2024 14:16:41 [facility] [place] [facility] BMI 31 kg/m2 09/14/2024 14:16:41 [facility] [place] [facility] PAIN 0 09/14/2024 14:16:41 [facility] [place] [facility] TEMPERATURE 98.1 09/14/2024 14:16:41 [facility] [place] [facility] PULSE 81 09/14/2024 14:16:41 [facility] [place] [facility] RESPIRATION 14 09/14/2024 14:16:41 [facility] [place] [facility] Encounters Combined [...] Source [facility] MTMS BY PHARM ADDL 15 MIN [id number] Diagnos is: ICD-10- CM E11.9 Type 2 diabete s mellitu s without complic ations GDRAMILA,LIUDMILA A 01/30 [facility] [place] [facility] MTMS BY PHARM EST 15 MIN [id number] Diagnos is: ICD-10- CM E11.9 Type 2 diabete s mellitu s without complic ations GDRAMILALIUDMILA A 02/02 [facility] [place] [facility] Q[facility] OL DIG ASSMT&MGMT 5-10 [id number] Diagnos is: ICD-10- CM E11.9 Type 2 diabete s mellitu s without complic ations POPEYE BENSON Sixto 02/02 [facility] [place] INTRM OPH EXAM EST PATIENT [id number] Diagnos is: ICD-10- CM E11.9 Type 2 diabete s mellitu s without complic ations ORTIZDEISY 02/03 [facility] [place] [facility] MTMS BY PHARM ADDL 15 MIN [id number] Diagnos is: ICD-10- CM E11.9 Type 2 diabete s mellitu s without complic ations GDRAMILA,LIUDMILA A 02/13 [facility] [place] [facility] Out[facility] Encounter [id number] 02/16 [facility] Encounter [id number] 02/23 [facility] [place] [place] OFF[place] O/P EST MOD 30 MIN [id number] Diagnos is: ICD-10- CM F33.8 Other recurre nt depress alli disorde rs ST MARTI ZHANG G 03/03 [place] [facility] MTMS BY PHARM EST 15 MIN [id number] Diagnos is: ICD-10- CM E11.9 Type 2 diabete s mellitu s without complic ations GDULA,LIUDMILA A 03/05 [facility] OFF[facility] O/P EST MOD 30 MIN [id number] Diagnos is: ICD-10- CM E11.9 Type 2 diabete s mellitu s without complic ations Fady ESCALANTE 03/18 [facility] Encounter [id number] 03/31 [facility] [place] Encounter [id number] 04/05 [facility] MTMS BY PHARM EST 15 MIN [id number] Diagnos is: ICD-10- CM E11.9 Type 2 diabete s mellitu s without complic ations GDULA,LIUDMILA A 04/07 [facility] En[facility] [id number] 04/15 [facility] [place] Encounter [id number] 04/15 [facility] [place] MTMS BY PHARM EST 15 MIN [id number] Diagnos is: ICD-10- CM E11.9 Type 2 diabete s mellitu s without complic ations LIUDMILA MARTINEZ A 04/15 [facility] [place] UNLISTED SPEC DERM SVC/PX [id number] Diagnos is: ICD-10- CM Z13.89 Encount er for screeni ng for other disorde r Kale SHELTON 04/16 [facility] En[facility] [id number] Diagnos is: ICD-10- CM R21 Rash and other nonspec ific skin eruptio n SAAD MICHAEL PH J 04/17 [facility] Out[facility] Encounter [id number] 04/17 [facility] En[facility] [id number] 04/17 [facility] Encounter [id number] 04/17 [facility] HC PRO PHONE CALL 5-10 MIN [id number] Diagnos is: ICD-10- CM 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 PAUL Schmidt 04/17 [facility] OFF/OP EST MAY X REQ PHY/QHP [id number] Diagnos is: ICD-10- CM H26.8 Other specifi ed catarPAUL Wilkes 04/21 [facility] [place] [facility] E[facility] D[facility] REPORT [id number] Diagnos is: ICD-10- CM Z13.6 Encount er for screeni ng for cardiov ascular disorde rs BEVERLYYASMIN A 04/21 [place] [facility] [place] [facility] Outpatient Encounter [id number] 04/23 [facility] [place] [facility] [place] [facility] Outpatient Encounter [id number] 04/27 [facility] [place] [facility] [place] [facility] Outpatient Encounter [id number] 04/27 [facility] [place] [facility] OFFICE O/P EST MOD 30 MIN [id number] Diagnos is: ICD-10- CM F41.1 General ized anxiety disorde r ST LEATHA [facility] G 04/28 [place] [facility] [place] [facility] MTMS BY PHARM EST 15 MIN [id number] 1. Diagnos is: ICD-10- CM E11.9 Type 2 diabete s mellitu s without complic ations LIUDMILA MARTINEZ A 05/05 [facility] [place] [facility] [place] OFF[place] O/P EST MOD 30 MIN [id number] Diagnos is: ICD-10- CM F41.1 General ized anxiety disorde r [facility] 06/02 [place] [facility] [place] MTMS BY PHARM EST 15 MIN [id number] Diagnos is: ICD-10- CM E11.9 Type 2 diabete s mellitu s without complic ations MICHELLELIUDMILA Zimmer 06/04 [facility] [place] [facility] [place] [facility] Outpatient Encounter [id number] 06/05 [facility] [place] [facility] [place] O/P EST MOD 30 MIN [id number] Diagnos is: ICD-10- CM F33.8 Other recurre nt depress alli disorde ST MARTI Mae G 07/08 [facility] En[facility] [id number] 07/10 [facility] [place] [facility] Outpatient Encounter [id number] 07/15 [facility] [place] [facility] [place] [facility] Outpatient Encounter [id number] 08/19 [facility] [place] [facility] [place] [facility] Outpatient Encounter [id number] [facility] [place] [facility] [place] O/P EST MOD 30 MIN [id number] Diagnos is: ICD-10- CM F33.8 Other recurre nt depress alli disorde rs ST MARTI ZHANG G 09/04 [place] Outpatient Encounter [id number] 09/07 [place] [facility] [place] [facility] Outpatient Encounter [id number] 1.09/11 [facility] [place] [facility] [place] [facility] Outpatient Encounter [id number] 1.09/14 [facility] [place] [facility] En[facility] [id number] 09/14 [facility] [place] [facility] OFFICE O/P EST LOW 20 MIN [id number] Diagnos is: ICD-10- CM Z23 Encount er for immuniz ation AVA,L VICTOR M RADHA 09/14 [facility] En[facility] [id number] 09/14 [facility] [place] [place] [facility] INTRM OPH EXAM EST PATIENT [id number] Diagnos is: ICD-10- CM Z96.1 Presenc e of intraoc ular lens ORTIZ,AL JEREMI 09/15 [facility] [place] [facility] Outpatient Encounter [id number] 09/16 [facility] [place] [facility] Outpatient Encounter [id number] 1.09/24 [facility] [place] [facility] Encounter [id number] 11/12 [facility] [place] Encounter [id number] 11/12 [facility] Encounter [id number] 11/17 [facility] Encounter [id number] 12/09 [facility] Encounter [id number] 12/14 [facility] Encounter [id number] 12/14 [facility] PH1 ASSMT&MGMT NQHP 21-30 [id number] 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 SWAIN, DONI 12/14 [facility] En[facility] [id number] 12/16 [facility] En[facility] [id number] 12/25 [facility] [place] Encounter [id number] 12/31 [facility] [place] Encounter [id number] 12/31 [facility] PH1 ASSMT&MGMT NQHP 5-10 [id number] 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 SWAIN, DONI 12/31 [facility] En[facility] [id number] 01/08 [facility] En[facility] [id number] 01/14 [facility] Encounter [id number] 01/16 [facility] Encounter [id number] 01/18 [facility] [place] Encounter [id number] 01/25 [facility] [place] Encounter [id number] 01/27 [facility] [place] Encounter [id number]/02 [facility] [place] Encounter [id number]/03 [facility] [place] Encounter [id number] 1.02/05 [facility] [place] OFFICE O/P EST MOD 30 MIN [id number] Diagnos is: ICD-10- CM F33.8 Other recurre nt depress alli disorde rs ST MARTI ZHANG G 02/23 [place] [facility] Out[facility] Encounter [id number] 02/26 [facility] Encounter [id number] 03/01 [facility] [place] En[facility] [id number] 03/11 [facility] [place] Encounter [id number] 03/23 [facility] [place] Encounter [id number] 03/25 [facility] PH1 ASSMT&MGMT NQHP 11-20 [id number] 1. 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 DONI SWAIN 03/31 [facility] En[facility] [id number] 04/01 [facility] En[facility] [id number] 04/05 [facility] [place] Outpatient Encounter [id number] 04/08 [place] [facility] Encounter [id number] 04/12 [facility] En[facility] [id number] 05/27 [facility] [place] Out[facility] Encounter [id number] 06/03 [facility] [place] OFF[place] O/P EST MOD 30 MIN [id number] Diagnos is: ICD-10- CM F33.8 Other recurre nt depress alli disorde rs ST MARTI ZHANG G 06/25 [place] [facility] OFFICE O/P EST MOD 30 MIN [id number] Diagnos is: ICD-10- CM E11.9 Type 2 diabete s mellitu s without complic ations DEISY ALCANTAR 06/30 [facility] [place] [facility] Social History Combined list of available smoking, tobacco, and other social history from Department of Defense and Veterans Affairs facilities. Social History Type Response Date Comment Sourc e Tobacco smoking status NHIS VA-TOBACCO NEVER USED 12/09/2023 [facility] [place] [facility] History of tobacco use CA-TOBACCO NEVER USED 01/04/2023 [facility] [place] [facility] History of tobacco use VA-TOBACCO NEVER USED 01/24/2022 [facility] History of tobacco use VA-TOBACCO NEVER USED 02/20/2021 [facility] [place] [place] [facility] History of tobacco use CA-TOBACCO NEVER USED 02/18/2020 [facility] [place] [place] [facility] History of tobacco use CA-TOBACCO FORMER USER 12/02/2018 [facility] [place] [facility] History of tobacco use QUIT TOBACCO USE > 7 YEARS AGO 02/28/2018 [facility] [place] [facility] History of tobacco use LIFETIME NON-TOBACCO USER 11/23/2016 [facility] [place] [facility] History of tobacco use LIFETIME NON-TOBACCO USER 11/29/2015 [place] History of tobacco use LIFETIME NON-TOBACCO USER 04/10/2005 [facility] [place] [facility] Plan of Care List of future care activities from Department [facility] facilities. Additional future care activities may be listed in the Assessment and Plan section. Date/Time Care Activity Care Activity Detail Facili ty 08/25/2025 AMBULATORY - PSYCHIATRY AMBULATORY - [facility] Advance Directives List of completed, amended, or rescinded Advance Directives on record at Department of Veterans Affairs facilities. An actual copy of the Directive is not included. Date Advance Directive Provider Source 09/08/2009 ADVANCE DIRECTIVE [facility]OLO [facility]
--- NOTE | 2025-07-13 13:59 | MHC.OFFVIS ---
Vital Signs 07/13/25 14:05 Height 5 ft 1 in Weight 152 lb BMI 28.7 BP 108/66 Blood Pressure Location Rt brachial Position Sitting Pulse 89 Intake Visit Reasons: Discuss br MRI~ 06-03-25 Intake Note: Patient here to discuss Bilateral breast MRI, 06-03-2025. Patient c/o: reports no concerns. 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 She apparently had a mammogram last 09/08/2024 showing an ultrasound-guided did biopsy was done at that time and this showed an invasive ductal cancer, ERPR negative, HER2 positive. In view of the large mass, she underwent neoadjuvant chemotherapy. However, she says she has been unable to tolerate this. She gets nauseous, and has diarrhea with her chemotherapy and had been able to complete only about 4 cycles. She does state that the mass has shrunk significantly in the right breast. I saw her last month in the office and scheduled her for an MRI as a follow-up imaging study. She denies any new complaints currently. [facility] Medical History History of brain tumor Insomnia Panic attack Anxiety Fibromyalgia Hypertension Diabetes Surgical History History of excision of pilonidal cyst Hx of hysterectomy (2006) Hx of cataract surgery Social History Household Members: Spouse Housing: House Do you presently have visiting nurse or other home services: No Alcohol intake: current Alcohol intake frequency: holidays/special occasions only Tobacco use type: Cigarette Second Hand Smoke Exposure: No Advance Directives Date on File: 01/13/25 service: No Current occupational status: unemployed and disabled Female Reproductive History Menstrual Age of Menarche: 12 Review of Systems Const Denies chills and Denies fever(s) Card Denies chest pain, Denies dyspnea and Denies dyspnea on exertion Resp Denies cough, Denies dyspnea and Denies dyspnea on exertion GI Denies hematochezia and Denies change in bowel habits Denies hematuria Musc Denies back pain, Reports arthralgias and Denies limited range of motion Neuro Denies focal weakness and Denies convulsions Psych Denies depression and Denies mood swings Physical Exam Vital Signs: Last Vital Signs Pulse 89 07/13/25 14:05 BP 108/66 07/13/25 14:05 BMI result Body Mass Index 28.7 Const General: comfortable and no acute distress Orientation/consciousness: patient oriented x3 Neck Neck: Yes no lymphadenopathy Chest Other: No palpable breast mass on the right, no axillary lymphadenopathy, no nipple or skin changes, Port-A-Cath on the left chest wall Resp Auscultation: clear to auscultation bilaterally Cardio Rhythm: regular rhythm GI Palpation (GI): Soft to palpation, nontender and no guarding Neuro General: patient oriented x3 Assessment & Plan Assessment & Plan (1) Invasive ductal carcinoma of right breast: Code(s): C50.911 - Malignant neoplasm of unspecified site of right female breast Category: Medical Plan: She had undergone neoadjuvant chemotherapy because of the large size of the tumor. Her MRI done last month suggest that she had good response to the chemotherapy though she was not able to complete this. The previous seen enhancing mass with proven invasive ductal carcinoma and ductal carcinoma is no lower enhancing and not seen on the MRI imaging and she has no axillary lymphadenopathy I explained to her options to complete treatment. One is to do lumpectomy sentinel with node biopsy followed by whole breast radiation. I explained the technique of this procedure and I reviewed the risks, benefits, and alternatives. The 2nd option is to proceed with lumpectomy with sentinel node biopsy. I also explained to her the technique of the procedure as well as the risks, benefits, alternatives. She says that she wants to proceed with mastectomy with sentinel biopsy. I reviewed the risks of bleeding, infections, flap necrosis, hematoma, inherent risks of anesthesia. She understands that she will need to stay in the hospital for 1 or 2 nights depending on her recovery and pain control. She understands the option of breast reconstruction and she says she does not want this at this time. She is a known diabetic. I have instructed him to make sure that she seen by primary care physician prior to surgery. I also set her up for another follow up with Dr. Vasquez prior to the mastectomy. Her and best friend were with her during the visit. Coding Level of Care Code Est Pt Level 4 (05242) Diagnoses Invasive ductal carcinoma of right breast C50.911
[2025-07-13 14:05] VITALS: BP 108/66; PULSE 89; BMI 28.7
== END 2025-07-13 14:33 | disposition home or self-care (01) ==
LOC: HO.HGS 13:59
PROVIDERS: PCP Nurse Practitioner Family; Visit Provider Surgery
DX: C50.911 Malignant neoplasm of unspecified site of right female breast (principal)
CPT/HCPCS: 99214

== ENCOUNTER → 2025-07-13 13:58 | Outpatient (BNVA) | payer OTHER, SELFPAY | PROVIDERS: PCP Nurse Practitioner Family; Visit Provider Surgery | DX: C50.911 Malignant neoplasm of unspecified site of right female breast (principal) | CPT/HCPCS: 99212 ==

== ENCOUNTER → 2025-09-07 10:38 | Outpatient (BNV) | payer OTHER, SELFPAY | PROVIDERS: PCP Nurse Practitioner Family; Visit Provider Radiology Diagnostic Radiology | DX: C50.911 Malignant neoplasm of unspecified site of right female breast (principal); Z01.818 Encounter for other preprocedural examination | CPT/HCPCS: 78195 ==

== ENCOUNTER 2025-09-07 11:10 | Outpatient (BNV) | payer OTHER, SELFPAY | END 2025-09-08 14:15 | PROVIDERS: Admitting Provider Surgery; PCP Nurse Practitioner Family; Visit Provider Student in an Organized Health Care Education/Training Program | DX: Z45.2 Encounter for adjustment and management of vascular access device (principal) | CPT/HCPCS: 36590 ==

== ENCOUNTER → 2025-09-07 11:10 | Outpatient (BNV) | payer OTHER, SELFPAY | PROVIDERS: Admitting Provider Surgery; PCP Nurse Practitioner Family; Visit Provider Internal Medicine | DX: C50.911 Malignant neoplasm of unspecified site of right female breast (principal) | CPT/HCPCS: 99222 ==

== ENCOUNTER → 2025-09-07 11:10 | Outpatient (BNV) | payer OTHER, SELFPAY | PROVIDERS: Admitting Provider Surgery; PCP Nurse Practitioner Family; Visit Provider Surgery | DX: C50.911 Malignant neoplasm of unspecified site of right female breast (principal) | CPT/HCPCS: 19303; 38525; 99024; 99499 ==

== ENCOUNTER 2025-09-23 10:47 | Outpatient (AMB) | payer OTHER, SELFPAY ==
--- NOTE | 2025-09-23 10:48 | MHC.OFFVIS ---
Vital Signs 09/23/25 10:49 Height 5 ft 1 in Weight 154 lb 5.177 oz BMI 29.2 Intake Visit Reasons: s/p rt mastectomy w/SN Bx Intake Note: Patient presents for post-op assessment status post right breast mastectomy with sentinel node biopsy. Pt c/o; no complaints at this time. 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 Accompanied by: Spouse Allergies morphine Allergy (Severe, Verified 09/23/25 11:03) Anaphylaxis diphenhydramine (From Benadryl) Allergy (Intermediate, Verified 09/23/25 11:03) passed out hydromorphone (From Dilaudid) Allergy (Intermediate, Verified 09/23/25 11:03) Itching latex Allergy (Intermediate, Verified 09/23/25 11:03) Itching metformin Allergy (Intermediate, Verified 09/23/25 11:03) Vomiting/diarrhea omeprazole Allergy (Unknown, Verified 09/23/25 11:03) reaction unknown per patient HPI HPI s/p rt mastectomy w/SN Bx: Details: She had undergone lumpectomy and sentinel node biopsy for invasive ductal carcinoma of the right breast last September 07, 2025. She had undergone neoadjuvant chemotherapy and radiation She was supposed to see me last week but she says she was unable to for some unspecified reason Still has her drains in place. [facility] Medical History Short attention span Atrial fibrillation CHF (congestive heart failure) History of brain tumor Insomnia Anxiety Fibromyalgia Hypertension Diabetes Surgical History H/O colonoscopy History of excision of pilonidal cyst Hx of hysterectomy (2006) Hx of cataract surgery Social History Household Members: Spouse Housing: House Are you a primary respiratory care instructor to a significant other at home: No Do you presently have visiting nurse or other home services: No Alcohol intake: current Alcohol intake frequency: holidays/special occasions only Patient Tobacco Use Status: Former Tobacco user Tobacco use type: Cigarette Years Smoked: <1 Second Hand Smoke Exposure: No Advance Directives Date on File: 01/13/25 service: No Current occupational status: unemployed and disabled Female Reproductive History Menstrual Age of Menarche: 12 Review of Systems Const Denies chills and Denies fever(s) Card Denies chest pain, Denies dyspnea and Denies dyspnea on exertion Resp Denies cough, Denies dyspnea and Denies dyspnea on exertion GI Denies hematochezia and Denies change in bowel habits Denies hematuria Musc Denies back pain and Denies limited range of motion Neuro Denies focal weakness and Denies convulsions Psych Denies depression and Denies mood swings Physical Exam Vital Signs: BMI result Body Mass Index 29.2 Const General: comfortable and no acute distress Chest Other: Mastectomy site well healed, both ALBARO drains in place, with very scanty output, clear Assessment & Plan Assessment & Plan (1) Invasive ductal carcinoma of right breast: Code(s): C50.911 - Malignant neoplasm of unspecified site of right female breast Category: Medical Plan: Status post mastectomy and sentinel node biopsy. Her final path report shows residual cancer, with current stage of ypT0N0 after neoadjuvant chemotherapy and radiation . Her mastectomy site seemed to be well healed. I removed both drains. I will see her again in the office in 1 month for another wound check I also we will arrange for her to have a follow up with Dr. Vasquez. Coding Level of Care Code Global (24426) Diagnoses Invasive ductal carcinoma of right breast C50.911
[2025-09-23 10:49] VITALS: BMI 29.2
== END 2025-09-23 11:09 | disposition home or self-care (01) ==
PROVIDERS: PCP Nurse Practitioner Family; Visit Provider Surgery
DX: C50.911 Malignant neoplasm of unspecified site of right female breast (principal)
CPT/HCPCS: 99024

== ENCOUNTER → 2025-09-23 10:47 | Outpatient (BNVA) | payer OTHER, SELFPAY | PROVIDERS: PCP Nurse Practitioner Family; Visit Provider Surgery | DX: C50.911 Malignant neoplasm of unspecified site of right female breast (principal); Z98.890 Other specified postprocedural states; Z87.891 Personal history of nicotine dependence; Z48.03 Encounter for change or removal of drains | CPT/HCPCS: 99212 ==

== ENCOUNTER 2025-11-01 12:19 | Outpatient (AMB) | payer OTHER, SELFPAY ==
--- NOTE | 2025-11-01 12:46 | A.OFFVIS_ITS ---
Vital Signs 11/01/25 12:47 Height 5 ft 1 in Weight 150 lb BMI 28.3 BP 122/65 Blood Pressure Location Lt brachial Position Sitting Pulse 81 Intake Visit Reasons: 1 month follow up s/p rt mastectomy w/SN Bx Intake Note: Patient presents for one month follow-up status post Right breast total mastectomy with sentinel node biopsy. Pt c/o; no complaints. Residential Treatment Staff Required: No Accompanied by: Spouse Allergies morphine Allergy (Severe, Verified 11/01/25 13:00) Anaphylaxis diphenhydramine (From Benadryl) Allergy (Intermediate, Verified 11/01/25 13:00) passed out hydromorphone (From Dilaudid) Allergy (Intermediate, Verified 11/01/25 13:00) Itching latex Allergy (Intermediate, Verified 11/01/25 13:00) Itching metformin Allergy (Intermediate, Verified 11/01/25 13:00) Vomiting/diarrhea omeprazole Allergy (Unknown, Verified 11/01/25 13:00) reaction unknown per patient HPI HPI 1 month follow up s/p rt mastectomy w/SN Bx: Details: She is here for follow up after mastectomy and sentinel biopsy of the right breast last August, for invasive ductal carcinoma. She previously had neoadjuvant treatment as well. She has been started on Herceptin and pertuzumab by Dr. Vasquez She describes having limitation of the range of motion of the right shoulder which she says she has had since she had chemotherapy. Furthermore, she describes having this chronic pain and limitation of the range of motion of the 1st and 2nd fingers of the left hand. She says that she has had this problem for years and [facility] [place] [facility] Medical History Pain in finger of left hand Right shoulder pain Short attention span Atrial fibrillation CHF (congestive heart failure) History of brain tumor Insomnia Anxiety Fibromyalgia Hypertension Diabetes Surgical History History of total mastectomy of right breast H/O colonoscopy History of excision of pilonidal cyst Hx of hysterectomy (2006) Hx of cataract surgery Social History Household Members: Spouse Housing: House Are you a primary rn intensive care unit to a significant other at home: No Do you presently have visiting nurse or other home services: No Alcohol intake: current Alcohol intake frequency: holidays/special occasions only Patient Tobacco Use Status: Former Tobacco user Tobacco use type: Cigarette Years Smoked: <1 Second Hand Smoke Exposure: No Advance Directives Date on File: 01/13/25 service: No Current occupational status: unemployed and disabled Female Reproductive History Menstrual Age of Menarche: 12 Review of Systems Const Denies chills and Denies fever(s) Card Denies chest pain Resp Denies cough Physical Exam Const Other: Mastectomy site well healed on a palpable mass, no axillary lymphadenopathy General: comfortable and no acute distress Resp Effort & Inspection: normal respiratory effort Cardio Rate: regular rate GI Palpation (GI): Soft to palpation, not firm and nontender Extrem Other: She is unable to abduct the right shoulder well; she also has significant limitation of the range of motion of the 1st and 2nd fingers on the left Assessment & Plan Assessment & Plan (1) Invasive ductal carcinoma of right breast: Code(s): C50.911 - Malignant neoplasm of unspecified site of right female breast Category: Medical Plan: Status post mastectomy and sentinel node biopsy. There was no residual tumor on pathologic examination of the mastectomy specimen. Her final diagnosis is yT0N0, ERPR negative, HER2 positive invasive ductal carcinoma. She is being followed by Dr. Vasquez. She will be on pertuzumab and Herceptin. She understands says she should continue to have regular mammograms for the contralateral left breast. This will be ordered. I will see her again in the office in about 6 months. (2) Right shoulder pain: Code(s): M25.511 - Pain in right shoulder Category: Medical Plan: She describes pain and limitation of the range of motion on the right shoulder. She says that she has had this since she had chemotherapy. I am going to send her for an MRI because of this. (3) Pain in finger of left hand: Code(s): M79.645 - Pain in left finger(s) Category: Medical Plan: She also describes chronic pain on the 1st and 2nd fingers on the left with the limitation of the range of motion. She used to have injections in this area in [place]. I am going to refer her to the hand surgeon. Orders: Orders MM tomosynthesis screening LT Today Z12.31 - Encounter for screening mammogram for malignant neoplasm of breast MR shoulder RT w con Today M25.511 - Pain in right shoulder Referrals Hand Surgery Referral M79.645 - Pain in left finger(s) Coding Level of Care Code Global (14667) Diagnoses Invasive ductal carcinoma of right breast C50.911 Right shoulder pain M25.511 Pain in finger of left hand M79.645
[2025-11-01 12:47] VITALS: BP 122/65; PULSE 81; BMI 28.3
== END 2025-11-01 13:18 | disposition home or self-care (01) ==
LOC: HO.HGS 12:20
PROVIDERS: PCP Nurse Practitioner Family; Visit Provider Surgery
DX: C50.911 Malignant neoplasm of unspecified site of right female breast (principal); M25.511 Pain in right shoulder; M79.645 Pain in left finger(s)
CPT/HCPCS: 99024

== ENCOUNTER → 2025-11-01 12:19 | Outpatient (BNVA) | payer OTHER, SELFPAY | PROVIDERS: PCP Nurse Practitioner Family; Visit Provider Surgery | DX: Z08 Encounter for follow-up examination after completed treatment for malignant neoplasm (principal); C50.911 Malignant neoplasm of unspecified site of right female breast; Z98.890 Other specified postprocedural states; M25.511 Pain in right shoulder; M79.645 Pain in left finger(s) | CPT/HCPCS: 99212 ==

== ENCOUNTER 2025-11-08 12:07 | Outpatient (REF) | payer OTHER, SELFPAY ==
--- NOTE | ~2025-11-08 | MM_ITS ---
EXAMINATION: DXA BONE DENSITY AXIAL HISTORY: Bone density to decide about treatment TECHNIQUE: [place] Dual energy absorptiometry (DEXA) of the lumbar spine, total left hip, and femoral neck was performed. COMPARISON: There are no prior studies for comparison. FINDINGS: The bone mineral density of the lumbar spine is 0.983 g/cm2, corresponding to a T-score of -1.6, and a Z-score of -0.3. This is indicative of osteopenia. The bone mineral density of the left total hip is 0.954 g/cm2, corresponding to a T-score of -0.4, and a Z-score of 0.6. This is indicative of normal bone mineral density. The bone mineral density of the left femoral neck is 0.853 g/cm2, corresponding to a T-score of -1.3, and a Z-score of 0.0. This is indicative of osteopenia. FRACTURE RISK: The FRAX index suggests a risk of major osteoporotic fracture of 4.4%, and of hip fracture 0.4%. MM/XR DEXA axial skeleton IMPRESSION: Based on bone mineral density, and according to World Health Organization (WHO) criteria, the diagnosis is consistent with osteopenia. Statistically, 68% of repeat scans fall within 1 SD (+/- 0.010 g/cm2 for AP spine L1-L4) and 1 SD (+/- 0.012 g/cm2 for femur total) FRAX is a trademark of the [employer], a World Health Organization (WHO) Collaborating Center. Electronically signed by: Santiago Carter MD 11/08/2025 02:01 PM [facility]
== END 2025-11-08 12:08 | disposition home or self-care (01) ==
LOC: HO.MAMMO 12:07
PROVIDERS: PCP Nurse Practitioner Family; Visit Provider Internal Medicine Medical Oncology
DX: M85.88 Other specified disorders of bone density and structure, other site (principal); M85.852 Other specified disorders of bone density and structure, left thigh; C50.911 Malignant neoplasm of unspecified site of right female breast
CPT/HCPCS: 77080

== ENCOUNTER → 2025-11-08 13:00 | Outpatient (BNV) | payer OTHER, SELFPAY | PROVIDERS: PCP Nurse Practitioner Family; Visit Provider Radiology Diagnostic Radiology | DX: E28.39 Other primary ovarian failure (principal) | CPT/HCPCS: 77080 ==